=== PATIENT | female | born 1940 | race American Indian/Alaskan Native ===

== ENCOUNTER 2018-02-02 14:59 | Emergency (ER) | payer MEDICARE ==
[2018-02-02] MEDS ORDERED: ASPIRIN PO ONE (15:44)
--- NOTE | 2018-02-02 15:58 | Emergency Department Report ---
ED General Adult HPI - General Chief complaint: Chest Pain Stated complaint: CHEST PAIN Time Seen by Provider: 02/02/18 15:40 Source: patient, EMS Mode of arrival: Stretcher Limitations: No Limitations - History of Present Illness Initial comments: 77-year-old female was at dialysis today around 1:30 starting a chest pain she says it lasted off and on for about an hr was across the precordium. She denies history of ACS or CAD. They were unable to complete dialysis she did have about 2 hours of dialysis. She is here for evaluation of chest pain that is now resolved and it is somewhat reproducible across precordium she was unclear if it was heavy. She is pain-free at this time. She does not state that it was sharp. It wasn't tearing in the back. She doesn't have any calf Pain or swelling. The patient is a history of hemodialysis for a month she has a right-sided vas cath for HD access. She is sent for a AV fistula tomorrow. She doesn't remember her kidney doctors name. [facility] but doesn't remember their name either. She has no history of CAD according the patient. No history of DVT or PE. She had a blood pressure 180 systolic on arrival was some intermittent chest pain across precordium that lasts about an hour she is pain-free at this time. No tearing pain pulses equal bilaterally no shortness of breath -: Gradual, minutes(s), unknown Severity scale (0 -10): 0 Quality: aching Consistency: now resolved Associated Symptoms: denies other symptoms, chest pain. denies: confusion, cough, diaphoresis, fever/chills, headaches, loss of appetite, malaise, nausea/ vomiting, rash, seizure, shortness of breath, syncope, weakness - Related Data Allergies Allergy/AdvReac Type Severity Reaction Status Date / Time No Known Allergies Allergy Unverified 02/02/18 15:43 ED Review of Systems ROS: Stated complaint: CHEST PAIN Other details as noted in HPI Comment: All other systems reviewed and negative Constitutional: denies: diaphoresis, fever, malaise Eyes: denies: eye discharge, vision change ENT: denies: dental pain, hearing loss, epistaxis Respiratory: denies: shortness of breath, SOB with exertion, SOB at rest, stridor Cardiovascular: chest pain, other (pain-free on arrival no tearing pain). denies: palpitations, dyspnea on exertion, orthopnea, edema, syncope, paroxysmal nocturnal dyspnea Gastrointestinal: denies: abdominal pain, nausea, vomiting, diarrhea, constipation, hematemesis, melena Musculoskeletal: denies: joint swelling, arthralgia Neurological: denies: numbness, paresthesias, confusion Psychiatric: denies: auditory hallucinations, visual hallucinations, suicidal thoughts Hematological/Lymphatic: denies: easy bruising ED Past Medical Hx - Past Medical History Previous Medical History?: Yes Hx Hypertension: Yes Hx Diabetes: Yes Additional medical history: ESRD, Dialysis - Social History Smoking Status: Never Smoker Substance Use Type: None ED Physical Exam - General Limitations: No Limitations General appearance: alert, in no apparent distress, anxious - Head Head exam: Present: atraumatic, normocephalic - Eye Eye exam: Present: PERRL, EOMI - Neck Neck exam: Present: normal inspection. Absent: tenderness, meningismus - Respiratory Respiratory exam: Absent: respiratory distress, wheezes, rales, rhonchi, stridor - Cardiovascular Cardiovascular Exam: Present: regular rate, normal rhythm - GI/Abdominal GI/Abdominal exam: Present: soft. Absent: distended, tenderness, guarding, rebound, rigid, pulsatile mass - Extremities Exam Extremities exam: Present: normal inspection, normal capillary refill, other ( pulses equal bilaterally). Absent: pedal edema, joint swelling, calf tenderness - Back Exam Back exam: Present: normal inspection, full ROM. Absent: tenderness, CVA tenderness (L), muscle spasm, paraspinal tenderness - Neurological Exam Neurological exam: Present: alert, oriented X3, CN II-XII intact. Absent: motor sensory deficit - Skin Skin exam: Absent: cyanosis, diaphoretic, erythema, urticaria, vesicles, petechiae ED Course Vital Signs 02/02/18 02/02/18 02/02/18 15:28 15:34 17:09 Temperature Pulse Rate 72 84 Respiratory 14 14 19 Rate Blood Pressure 188/110 Blood Pressure 176/70 [Left] O2 Sat by Pulse 97 92 Oximetry 02/02/18 18:00 Temperature 98.1 F Pulse Rate 86 Respiratory 16 Rate Blood Pressure Blood Pressure 174/72 [Left] O2 Sat by Pulse 100 Oximetry ED Medical Decision Making - Lab Data Result diagrams: 02/02/18 15:48 02/02/18 15:48 - EKG Data -: EKG Interpreted by Me - EKG Data Interpretation: other (no old EKGs available nonspecific ST change no STEMI) - Radiology Data Radiology results: report reviewed - Medical Decision Making Patient has no old records at this facility. She has seen a economic specialist at the [facility] unclear of the doctor's name. She has a nondiagnostic EKG but elevated troponin 2 she is pain-free at this time d-dimer was mildly elevated as well. Patient was informed that we would admit her for further evaluation of chest pain with elevated troponin and elevated d-dimer she is adamant that she will not be admitted. She is not intoxicated she does have capacity and competence is alert and oriented 3 and not intoxicated she was informed of the risk of acute coronary syndrome PE arrhythmia and ansd disability and is signing out AMA to nurses witnessed that she was alert and oriented with capacity and was informed of risks and also verbalized understanding. She did consent and sign AMA with 2 witnesses including 2 nurses. Patient was unable to be encouraged to be admitted she says she needs to see her vascular surgeon in the morning. She was informed that we cannot evaluate for ACS or PE DVT without further evaluation and admission she signed AMA Critical care attestation.: If time is entered above; I have spent that time in minutes in the direct care of this critically ill patient, excluding procedure time. ED Disposition Clinical Impression: Chest pain Disposition: [id number] LEFT AGAINST MED ADVICE Is pt being admited?: No Condition: Stable Instructions: Chest Pain (ED) Additional Instructions: Return immediately if new alarming symptoms see her doctor tomorrow or 911 Referrals: SHAKIRA ZULUAGA MD [Primary Care Provider] - 3-5 Days Forms: AMA Form Time of Disposition: 19:47
[2018-02-02 16:20] LABS: Basophils % (Auto) 0.9 % (0.0-1.8); Eosinophils # (Auto) 0.2 K/mm3 (0.0-0.4); Eosinophils % (Auto) 2.8 % (0.0-4.3); Hematocrit 31.6 % (30.3-42.9); Lymphocytes # (Auto) 1.4 K/mm3 (1.2-5.4); Lymphocytes % (Auto) 26.5 % (13.4-35.0); Mean Corpuscular HGB Conc 32 % (30-34); Mean Corpuscular Hemoglobin 29 pg (28-32); Mean Corpuscular Volume 90 fl (79-97); Monocytes # (Auto) 0.6 K/mm3 (0.0-0.8); Monocytes % (Auto) 10.8 % (0.0-7.3); Platelet Count 124 K/mm3 (140-440); Red Blood Count 3.49 M/mm3 (3.65-5.03); Red Cell Distribution Width 16.7 % (13.2-15.2)
[2018-02-02 16:29] LABS: Calcium 8.4 mg/dL (8.4-10.2)
[2018-02-02 17:10] LABS: Chol/HDL Ratio 1.94 %
[2018-02-02] MEDS ORDERED: MORPHINE IV ONE (17:23)
[2018-02-02] MEDS ORDERED: ZOFRAN IV ONE (17:23)
--- NOTE | 2018-02-02 18:43 | XRay Report ---
FINAL REPORT EXAM: XR CHEST 1V AP HISTORY: chest pain TECHNIQUE: Frontal portable examination of the chest PRIORS: None FINDINGS: A right venous catheter is in place with distal tip near the cavoatrial junction region. Nonspecific streaky densities are present bilaterally with slight central predominance. This interstitial prominence may represent interstitial and/or vascular markings. There is no focal pulmonary consolidation. No evidence of pleural effusion or pneumothorax. The cardiac silhouette size is normal. No evidence of acute skeletal pathology. IMPRESSION: Nonspecific interstitial prominence may reflect slight scarring or fibrosis. Acute considerations include slight reactive airways disease, vascular congestion, interstitial edema, viral process, or interstitial pneumonitis.
[2018-02-02 20:06] VITALS: BP 182/66
== END 2018-02-02 20:18 | disposition left against medical advice (07) ==
LOC: ED 14:59
DX: R07.9 Chest pain, unspecified (principal); I12.0 Hypertensive chronic kidney disease with stage 5 chronic kidney disease or end stage renal disease; E11.22 Type 2 diabetes mellitus with diabetic chronic kidney disease; N18.6 End stage renal disease; Z99.2 Dependence on renal dialysis
CPT/HCPCS: 36415; 71045; 80048; 80061; 84484; 85025; 85379; 93005; 93010; 96374; 96375; 99284; J2270; J2405

== ENCOUNTER 2018-10-23 19:59 | Inpatient (IN) | payer MEDICARE ==
--- NOTE | 2018-10-23 20:36 | Emergency Department Report ---
HPI - General Time Seen by Provider: 10/23/18 20:21 - HPI HPI: 78-year-old female presents to the emergency department via EMS from home with complaint of some seizure-like activity. The family called EMS because she was "shaking all day." The patient says that she keeps jerking uncontrollably but also says that she has been awake and cognizant of this jerking motion. Patient complains of some left-sided neck pain but otherwise denies any headache. She has a past medical history of insulin-dependent diabetes, hypertension, coronary artery disease, CHF, end-stage renal disease on hemodialysis. Patient appears to follow with Dr. Pope's nephrology group. The patient got to the emergency department she had some low pulse ox on room air, 90%, so she was given 2 L nasal cannula supplemental oxygen. She is a little groggy but is responsive and oriented. The patient was just recently admitted and then discharged from this hospital at the end of September for some altered mental status issues. ED Past Medical Hx - Past Medical History Hx Hypertension: Yes Hx Congestive Heart Failure: Yes Hx Diabetes: Yes Hx Renal Disease: Yes (esrd on dialysis) Hx HIV: No Additional medical history: ESRD, Dialysis - Surgical History Additional Surgical History: Graft PA - Social History Smoking Status: Never Smoker - Medications Home Medications: Home Medications Medication Instructions Recorded Confirmed Last Taken Type Acetaminophen [Tylenol] 500 mg PO Q8H PRN 08/13/18 10/14/18 08/11/18 History Aspirin 81 mg PO DAILY 08/13/18 10/14/18 08/11/18 History Baclofen 10 mg PO TID 08/13/18 10/14/18 08/11/18 History Carvedilol [Coreg] 12.5 mg PO BID 08/13/18 10/14/18 08/11/18 History ISOSORBIDE MONOnitrate [Imdur ER] 60 mg PO DAILY 08/13/18 10/14/18 08/11/18 History Tizanidine HCl [Zanaflex] 4 mg PO TID 08/13/18 10/14/18 08/11/18 History amLODIPine [Norvasc] 10 mg PO DAILY 08/13/18 10/14/18 08/11/18 History Lacosamide [Vimpat] 50 mg PO Q12HR #60 tablet 08/18/18 10/14/18 Unknown Rx Acetaminophen [Acetaminophen TAB] 650 mg PO Q4H PRN tablet 09/02/18 10/14/18 Unknown Rx Aspirin [Aspirin BABY CHEW TAB] 81 mg PO DAILY tab.chew 09/02/18 10/14/18 Unknown Rx Carvedilol [Coreg] 12.5 mg PO BID tablet 09/02/18 10/14/18 Unknown Rx Famotidine [Pepcid] 10 mg PO BID tablet 09/02/18 10/14/18 Unknown Rx Lispro Insulin [Humalog] 0 unit SUB-Q ACHS units 09/02/18 10/14/18 Unknown Rx oxyCODONE /ACETAMINOPHEN [Percocet 1 tab PO Q6H PRN tablet 09/02/18 10/14/18 Unknown Rx 5/325 mg] Carvedilol [Coreg] 12.5 mg PO BID tablet 10/15/18 Unknown Rx Gabapentin [Neurontin] 100 mg PO Q12H #60 capsule 10/15/18 Unknown Rx ISOSORBIDE MONOnitrate [Imdur ER] 60 mg PO DAILY tablet 10/15/18 Unknown Rx Insulin Regular, Human [HumuLIN R] 0 units SUB-Q QHS units 10/15/18 Unknown Rx Lisinopril [Zestril TAB] 40 mg PO DAILY tablet 10/15/18 Unknown Rx cloNIDine [Catapres] 0.2 mg PO BID tablet 10/15/18 Unknown Rx ED Review of Systems ROS: Stated complaint: SEIZURE Other details as noted in HPI Comment: All other systems reviewed and negative Constitutional: denies: chills, fever Eyes: denies: eye pain, vision change ENT: denies: ear pain, throat pain Respiratory: denies: cough, shortness of breath Cardiovascular: denies: chest pain, palpitations Gastrointestinal: denies: abdominal pain, vomiting Genitourinary: denies: dysuria, discharge Musculoskeletal: other (neck pain). denies: back pain Skin: denies: rash, lesions Neurological: other (seizure like activity / jerking). denies: headache Physical Exam - Physical Exam Physical Exam: GENERAL: The patient is well-developed well-nourished. HEENT: Normocephalic. Atraumatic. Patient has moist mucous membranes. EYES: Extraocular motions are intact. Pupils are equal and reactive to light bilaterally. NECK: Supple. Trachea is midline. CHEST/LUNGS: Rhonchi heard, worse on the right. No tachypnea or accessory muscle use. There is no respiratory distress noted. HEART/CARDIOVASCULAR: Regular. There is no tachycardia. There is no obvious murmur. ABDOMEN: Abdomen is soft, nontender. Patient has normal bowel sounds. There is no abdominal distention. SKIN: Skin is warm and dry. NEURO: The patient is sleepy/groggy but is easily arousable. Once awake she is oriented and cooperative. The patient has no focal neurologic deficits. The patient has normal speech. MUSCULOSKELETAL: There is no tenderness or deformity. There is no evidence of acute injury. ED Medical Decision Making - Lab Data Result diagrams: 10/23/18 21:06 10/23/18 23:01 - EKG Data -: EKG Interpreted by Me EKG shows normal: sinus rhythm, axis (left axis deviation), intervals, QRS complexes (LVH, early repolarization), ST-T waves Rate: normal - EKG Data When compared to previous EKG there are: no significant change Interpretation: unchanged when compared t (10/14/18) - Radiology Data Radiology results: report reviewed, image reviewed interpreted by me: Chest x-ray shows some patchy infiltrate and/or consolidation to the right middle and lower lobe concerning for pneumonia versus effusion. No pneumothorax. PROCEDURE: CT HEAD/BRAIN WO CON TECHNIQUE: Computerized tomography of the head was performed without contrast material. HISTORY: seizures COMPARISON: 10/14/2019 FINDINGS: Skull and scalp: Normal. Paranasal sinuses: Normal. Ventricles and subarachnoid spaces: Normal. Cerebrum: No evidence of hemorrhage, acute infarction or mass.. Cerebellum and brainstem: No evidence of hemorrhage, acute infarction or mass. Vasculature: Normal. Comments: None. IMPRESSION: There is no evidence acute intracranial Transcribed By: [facility] Dictated By: SALO DIEGO MD Electronically Authenticated By: SALO DIEGO MD Signed Date/Time: 10/24/18 0008 EXAM: CT CHEST WO CON HISTORY: SOB, abnormal CXR TECHNIQUE: Routine axial imaging was obtained of the thorax without IV contrast with sagittal and coronal reconstructions. There are no previous CT scans available for comparison. FINDINGS: The heart is moderately enlarged. Pericardial fluid is not seen. The thoracic aorta is normal in caliber. The lungs reveal diffuse interstitial prominence and congestion. There are bilateral small effusions. There extensive airspace disease particularly in right middle lobe and right lower lobe and to lesser extent in the right upper lobe. There is mild patchy airspace disease in the left upper lobe also. The skeletal structures reveal mild disc degeneration in the dorsal spine. At the thoracic inlet the thyroid gland appears normal. In the upper abdomen the adrenal glands appear normal. There are multiple stones in the gallbladder. IMPRESSION: Extensive pneumonia primarily in the right middle and right lower lobe with additional patchy infiltrates in the right upper lobe and left upper lobe. Cardiomegaly with pulmonary vascular congestion and bilateral small effusions. Gallstones. Transcribed By: RB Dictated By: DAMION NEWMAN MD Electronically Authenticated By: DAMION NEWMAN MD Signed Date/Time: 10/24/18 0011 - Medical Decision Making The patient originally came in for the complaint of some seizure-like activity has been going on throughout today. The patient is sleepy and/or karate, she is easily arousable and oriented to person, place and time. She has no significant complaints. However on examination the patient has rhonchi heard throughout the chest and had some hypoxia on the monitor. A chest x-ray was done that shows some right middle to lower lung consolidation and/or infiltrates. The patient's labs are mostly unremarkable except for her chronic kidney disease. She does have a very elevated proBNP but once again she is end- stage renal disease on hemodialysis. CT scan of head without any bleed, shift, mass, ischemia or any other acute process. CT scan of the chest without contrast shows significant right-sided pneumonia. Blood Cultures were sent and the patient was started on antibiotics. Patient will be admitted to the [facility] for further evaluation and treatment and was accepted for admission by the hospitalist, Dr. Lima. - Differential Diagnosis Pneumonia, Epilepsy, CHF, Sepsis Critical Care Time: No Critical care attestation.: If time is entered above; I have spent that time in minutes in the direct care of this critically ill patient, excluding procedure time. ED Disposition Clinical Impression: End stage renal disease on dialysis, Seizure Pneumonia Qualifiers: Pneumonia type: due to unspecified organism Laterality: right Lung location: unspecified part of lung Qualified Code(s): J18.9 - Pneumonia, unspecified organism Disposition: -09 OP ADMIT IP TO THIS HOSP Is pt being admited?: Yes Condition: Serious Instructions: Bacterial Pneumonia (ED) Referrals: YOLETTE GUO MD [Primary Care Provider] - 3-5 Days Time of Disposition: 01:27
[2018-10-23 21:32] LABS: Basophils % (Auto) 0.4 % (0.0-1.8); Hematocrit 39.5 % (30.3-42.9); Hemoglobin 12.8 gm/dl (10.1-14.3); Lymphocytes # (Auto) 0.5 K/mm3 (1.2-5.4); Lymphocytes % (Auto) 6.7 % (13.4-35.0); Mean Corpuscular HGB Conc 32 % (30-34); Mean Corpuscular Volume 89 fl (79-97); Monocytes # (Auto) 0.7 K/mm3 (0.0-0.8); Monocytes % (Auto) 8.4 % (0.0-7.3); Red Blood Count 4.44 M/mm3 (3.65-5.03); Red Cell Distribution Width 16.7 % (13.2-15.2)
[2018-10-23 21:47] LABS: Platelet Count 89 K/mm3 (140-440)
--- NOTE | 2018-10-23 21:50 | XRay Report ---
FINAL REPORT EXAM: XR CHEST 1V AP HISTORY: SOB TECHNIQUE: Frontal portable view of the chest Comparison: Chest x-ray dated October 14, 2018 FINDINGS: There has been interval development of a large area of pulmonary consolidation suggestive of pulmonar y infiltrate in the right mid and lower lung pan. There continues to be prominence of the interstitial markings in both lungs as was demonstrated on th e previous study. There is no evidence of pneumothorax. It is unclear whether not there is a right pleural fluid collec tion. The cardiac silhouette is partially obscured by the pulmonary disease. The thoracic aorta is tortuous. IMPRESSION: 1. Interval development of large area pulmonary consolidation, probable pneumonia, right mid and lowe r lung pan.
[2018-10-23 21:53] LABS: Calcium 8.5 mg/dL (8.4-10.2)
[2018-10-23] MEDS ORDERED: LEVAQUIN 750MG/150ML 750 MG/150 ML BAG IV ONE (21:58)
[2018-10-23] MEDS ORDERED: DUONEB *Not for PRN Use IH ONE (21:58)
[2018-10-23 22:47] LABS: Albumin 3.5 g/dL (3.9-5)
[2018-10-23] MEDS ORDERED: HumuLIN R IV ONE (23:14)
[2018-10-23 23:26] LABS: Calcium 8.2 mg/dL (8.4-10.2)
--- NOTE | 2018-10-24 00:08 | Cat Scan Report ---
FINAL REPORT PROCEDURE: CT HEAD/BRAIN WO CON TECHNIQUE: Computerized tomography of the head was performed without contrast material. HISTORY: seizures COMPARISON: 10/14/2019 FINDINGS: Skull and scalp: Normal. Paranasal sinuses: Normal. Ventricles and subarachnoid spaces: Normal. Cerebrum: No evidence of hemorrhage, acute infarction or mass.. Cerebellum and brainstem: No evidence of hemorrhage, acute infarction or mass. Vasculature: Normal. Comments: None. IMPRESSION: There is no evidence acute intracranial
--- NOTE | 2018-10-24 00:11 | Cat Scan Report ---
FINAL REPORT EXAM: CT CHEST WO CON HISTORY: SOB, abnormal CXR TECHNIQUE: Routine axial imaging was obtained of the thorax without IV contrast with sagittal and co rubina reconstructions. There are no previous CT scans available for comparison. FINDINGS: The heart is moderately enlarged. Pericardial fluid is not seen. The thoracic aorta is normal in romie allan. The lungs reveal diffuse interstitial prominence and congestion. There are bilateral small effus ions. There extensive airspace disease particularly in right middle lobe and right lower lobe and to lesser extent in the right upper lobe. There is mild patchy airspace disease in the left upper lobe a lso. The skeletal structures reveal mild disc degeneration in the dorsal spine. At the thoracic inlet the thyroid gland appears normal. In the upper abdomen the adrenal glands appear normal. There are m ultiple stones in the gallbladder. IMPRESSION: Extensive pneumonia primarily in the right middle and right lower lobe with additional patchy infiltr ates in the right upper lobe and left upper lobe. Cardiomegaly with pulmonary vascular congestion and bilateral small effusions. Gallstones.
[2018-10-24] MEDS ORDERED: KEPPRA 1,000 MG/NS 0.75% 100ML 1,000 MG/100 ML BAG IV ONE (00:40)
[2018-10-24] MEDS ORDERED: TYLENOL PO PRN ×2 (01:07→04:05)
[2018-10-24] MEDS ORDERED: ATIVAN IV PRN (01:09)
[2018-10-24] MEDS ORDERED: ZOFRAN IV PRN (01:09)
[2018-10-24] MEDS ORDERED: D50W (25GM) Syringe IV PRN (01:24)
--- NOTE | 2018-10-24 06:04 | History and Physical Report ---
CHIEF COMPLAINT: Seizure attack. HISTORY OF PRESENT ILLNESS: The patient is a 78-year-old female who was noted to be having seizure-like activity at home and the family called 911 because the patient was noted to be shaking all over and the patient states she kept jerking uncontrollably but states that she was aware of the jerking movement she was having. She also complained of pain on the left side of the neck, but denied any history of chest pain. Denies history of shortness of breath, fever, nausea or vomiting. The patient was recently discharged from the hospital towards the end of September after being treated for altered mental status. There was no prior history of seizure disorder in the patient. The patient also denies history of fever. PAST MEDICAL HISTORY: Pertinent for hypertension, congestive heart failure, diabetes mellitus, end-stage renal disease, on dialysis. PAST SURGICAL HISTORY: Pertinent for left upper extremity graft. FAMILY HISTORY: Family history is noncontributory. SOCIAL HISTORY: The patient lives with family, does not smoke, does not drink alcohol. MEDICATIONS: The patient is on Tylenol 500 mg by mouth every 8 hours, baclofen 10 mg by mouth 3 times daily, Coreg 12.5 mg by mouth twice daily, tizanidine or Zanaflex 4 mg by mouth 3 times daily, Norvasc 10 mg daily, lacosamide or Vimpat 50 mg by mouth every 12 hours, Tylenol 650 mg by mouth every 4 hours, aspirin 81 mg by mouth daily, famotidine 10 mg by mouth twice daily, lispro insulin according to sliding scale protocol, Percocet 5/325 mg one by mouth every 6 hour, Neurontin 100 mg by mouth every 12 hours, Imdur or isosorbide mononitrate 60 mg by mouth daily, lisinopril 40 mg by mouth daily, Catapres 0.2 mg by mouth twice daily. ALLERGIES: There are no known drug allergies. REVIEW OF SYSTEMS: CONSTITUTIONAL: There is no fever, no chills, no diaphoresis. HEENT: There is no headache, or sore throat. CARDIOVASCULAR SYSTEM: There is no chest pain or orthopnea. RESPIRATORY SYSTEM: There is no shortness of breath or cough. GASTROINTESTINAL SYSTEM: There is no nausea, no vomiting, no abdominal pain, diarrhea or constipation. NEUROLOGICAL SYSTEM: Seizure like activity noted with change in mental status noted. MUSCULOSKELETAL SYSTEM: There is no joint pain or swelling. DERMATOLOGICAL SYSTEM: There is no skin rash or itching. GENITOURINARY SYSTEM: There is no dysuria, hematuria, or flank pain. Rest of system review is normal. PHYSICAL EXAMINATION: GENERAL: At the time of exam, the patient was found to be lethargic, but easily arousable, unable to answer questions and not in acute distress. VITAL SIGNS: Shows normal temperature with pulse of 78, respiration 22, blood pressure 142/50, O2 sat of 97% on room air. HEENT: Showed pupils to be equal, round, reactive to light and accommodating. Extraocular muscles are intact. NECK: Neck is supple with no JVD or carotid bruit. CARDIOVASCULAR SYSTEM: Showed normal first and second heart sounds with no gallops or murmur. RESPIRATORY SYSTEM: Show good air entry on both sides of the lung with crackles in the right lung field. GASTROINTESTINAL SYSTEM: Show abdomen to be full, soft, nontender with no organomegaly or rigidity. NEUROLOGICAL: Neuro exam shows no focal deficits. MUSCULOSKELETAL SYSTEM: Show no joint swelling or tenderness. DERMATOLOGICAL SYSTEM: Show no skin rash. GENITOURINARY SYSTEM: Showing no costovertebral angle tenderness. PERTINENT LABORATORY AND IMAGING STUDIES: The patient had CT of the chest without contrast done that shows extensive pneumonia primarily in the right middle and right lower lobe with additional patchy infiltrate in the right upper lobe and left upper lobe. There is also finding of cardiomegaly with pulmonary vascular congestion and bilateral small effusion. There is finding of some gallstone and the patient had a CT of the head without contrast done that shows no evidence of acute intracranial lesion. The patient has chest x-ray done which shows interval development of large area of pulmonary consolidation, probably pneumonia in the right lower lobe. Lab results; the patient has CBC done with normal white count, normal hemoglobin and normal hematocrit with low platelet count of 89,000 and CBC differential that shows high segmented neutrophilic count of 84.5% and the patient's chemistry showed low sodium level of 133, low chloride of 94.6. Elevated BUN of 29 and elevated creatinine of 3.8 and an elevated blood glucose level of 361. Brain natriuretic [place] [address]. Toxicology screen shows unremarkable alcohol level. DIAGNOSES: 1. Right lung pneumonia. 2. Seizure disorder. 3. End-stage renal disease, on dialysis. PLAN OF ACTION: 1. The patient will be admitted to telemetry. 2. The patient will be on IV ceftriaxone 1 gram daily and IV Zithromax 500 mg daily. 3. The patient will have Nephrology consult with Dr. Pope for management of end-stage renal disease, on dialysis. 4. The patient will be on Keppra 750 mg by mouth twice daily for management of seizure disorder. 5. The patient will get Neurology consult when available. 6. The patient will be on heparin 5000 units subQ q. 12 hours for DVT prophylaxis and will be on Tylenol 650 mg by mouth every 4 hours for fever and headache. 7. The patient will be on IV lorazepam or Ativan 1 mg every 2 hours as needed for seizure attack. 8. The patient will be on IV Zofran 4 mg every 8 hours for nausea and vomiting. 9. The patient's diet will be consistent carbohydrate, low sodium diet and the patient will be on Accu-Chek before meals and at bedtime, followed by low-dose sliding scale using regular insulin coverage. 10. The patient's home medication will be started when they are reconciled. JOB# [id number] [facility]IZABETH MTDD
[2018-10-24] MEDS ORDERED: NON-FORMULARY (Tizanidine Hcl [Zanaflex] 4 MG) PO SCH (08:00)
[2018-10-24] MEDS: HumuLIN R SUB-Q SCH ×4 (09:00→22:21)
[2018-10-24] MEDS: ZANAFLEX PO SCH ×3 (09:55→21:38)
[2018-10-24] MEDS ORDERED: ZITHROMAX 500 MG in NACL 0.9% 250ML 250 ML IV SCH (10:00)
[2018-10-24] MEDS ORDERED: ROCEPHIN/NS 1 GM/50 ML 1 GM/50 ML BAG IV SCH (10:00)
[2018-10-24] MEDS ORDERED: NON-FORMULARY (Aspirin 81 MG) PO SCH (10:00)
[2018-10-24] MEDS ORDERED: VANCOMYCIN PHARMACY TO DOSE IV SCH (12:00)
[2018-10-24] MEDS ORDERED: VANCOMYCIN/NS 1 GM/250 ML 1 GM/250 ML BAG IV ONE (12:00)
--- NOTE | 2018-10-24 12:29 | Consultation ---
History of Present Illness - Reason for Consult Consult date: 10/24/18 end stage renal disease Requesting physician: LEO SCHOFIELD - History of Present Illness 78-year-old female presents to the emergency department via EMS from home with complaint of some seizure-like activity. The family called EMS because she was "shaking all day." The patient says that she keeps jerking uncontrollably but also says that she has been awake and cognizant of this j erking motion. Patient complains of some left-sided neck pain but otherwise denies any headache. She has a past medical history of insulin-dependent diabetes, hypertension, coronary artery disease, CHF, end-stage renal disease on hemodialysis. The patient got to the emergency department she had some low pulse ox on room air, 90%, so she was given 2 L nasal cannula supplemental oxygen. She is a little groggy but is responsive and oriented. The patient was just recently admitted and then discharged from this hospital at the end of September for some altered mental status issues. 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 However she was seen by our group during all her previous admissions here. Patient found to have a large consolidation in the lungs. She is being admitted for further management Past History Past Medical History: diabetes, dialysis, hypertension Past Surgical History: Other (history of creation of AV access) Social history: other (history of smoking or drinking) Family history: no significant family history Medications and Allergies Allergies Allergy/AdvReac Type Severity Reaction Status Date / Time No Known Allergies Allergy Unverified 02/02/18 15:43 Home Medications Medication Instructions Recorded Confirmed Last Taken Type Aspirin 81 mg PO DAILY 08/13/18 10/24/18 08/11/18 History Baclofen 10 mg PO TID 08/13/18 10/24/18 08/11/18 History Tizanidine HCl [Zanaflex] 4 mg PO TID 08/13/18 10/24/18 08/11/18 History amLODIPine [Norvasc] 10 mg PO DAILY 08/13/18 10/24/18 08/11/18 History Lacosamide [Vimpat] 50 mg PO Q12HR #60 tablet 08/18/18 10/24/18 Unknown Rx Acetaminophen [Acetaminophen TAB] 650 mg PO Q4H PRN tablet 09/02/18 10/24/18 Unknown Rx Aspirin [Aspirin BABY CHEW TAB] 81 mg PO DAILY tab.chew 09/02/18 10/24/18 Unknown Rx Famotidine [Pepcid] 10 mg PO BID tablet 09/02/18 10/24/18 Unknown Rx Lispro Insulin [Humalog] 0 unit SUB-Q ACHS units 09/02/18 10/24/18 Unknown Rx oxyCODONE /ACETAMINOPHEN [Percocet 1 tab PO Q6H PRN tablet 09/02/18 10/24/18 Unknown Rx 5/325 mg] Carvedilol [Coreg] 12.5 mg PO BID tablet 10/15/18 10/24/18 Unknown Rx Gabapentin [Neurontin] 100 mg PO Q12H #60 capsule 10/15/18 10/24/18 Unknown Rx ISOSORBIDE MONOnitrate [Imdur ER] 60 mg PO DAILY tablet 10/15/18 10/24/18 Unknown Rx Insulin Regular, Human [HumuLIN R] 0 units SUB-Q QHS units 10/15/18 10/24/18 Unknown Rx Lisinopril [Zestril TAB] 40 mg PO DAILY tablet 10/15/18 10/24/18 Unknown Rx cloNIDine [Catapres] 0.2 mg PO BID tablet 10/15/18 10/24/18 Unknown Rx Active Meds: Active Medications Acetaminophen (Tylenol) 650 mg PO Q4H PRN PRN Reason: Fever >101 Amlodipine Besylate (Norvasc) 10 mg PO DAILY [facility] Aspirin (Baby Aspirin) 81 mg PO DAILY [facility] Carvedilol (Coreg) 12.5 mg PO BID [facility] Clonidine HCl (Catapres) 0.2 mg PO BID [facility] Dextrose (D50w (25gm) Syringe) 50 ml IV PRN PRN PRN Reason: Hypoglycemia Famotidine (Pepcid) 10 mg PO BID [facility] Heparin Sodium (Porcine) (Heparin) 5,000 unit SUB-Q Q12HR [facility] Cefepime HCl (Maxipime/Ns 1 Gm/100 Ml) 1 gm in 100 mls @ 200 mls/hr IV Q24H BUTCH Vancomycin HCl (Vancomycin/Ns 1 Gm/250 Ml) 1 gm in 250 mls @ 166.667 mls/hr IV ONCE ONE Stop: 10/24/18 13:29 Insulin Human Regular (Humulin R) 0 units SUB-Q AC [facility]; Protocol Insulin Human Regular (Humulin R) 0 units SUB-Q QHS [facility]; Protocol Isosorbide Mononitrate (Imdur) 60 mg PO DAILY [facility] Lacosamide (Vimpat) 50 mg PO Q12HR BUTCH Levetiracetam (Keppra) 750 mg PO BID BUTCH Lisinopril (Zestril) 40 mg PO DAILY BUTCH Lorazepam (Ativan) 1 mg IV Q2H PRN PRN Reason: Seizures Ondansetron HCl (Zofran) 4 mg IV Q8H PRN PRN Reason: Nausea And Vomiting Oxycodone/Acetaminophen (Percocet 5/325) 1 tab PO Q6H PRN PRN Reason: Pain, Moderate (4-6) Tizanidine HCl (Zanaflex) 4 mg PO TID BUTCH Review of Systems All systems: negative (negative except as noted above) Exam - Vital Signs Vital signs: Vital Signs Pulse Resp Pulse Ox 86 16 80 L 10/23/18 20:14 10/23/18 20:14 10/23/18 20:14 - General Appearance General appearance: well-developed, well-nourished, appears stated age EENT: ATNC Neck: Present: neck supple Respiratory: Ronchi (bilateral scattered rhonchi) Heart: regular, normal heart rate, S1S2, no murmurs Gastrointestinal: Present: normal, normoactive bowel sounds Integumentary: other (1+ edema. AV fistula in her left upper arm. Good bruit and thrill) Results - Lab Results 10/23/18 21:06 10/23/18 23:01 Most recent lab results Calcium 8.2 mg/dL (8.4-10.2) L 10/23/18 23:01 Assessment and Plan Impression * End-stage renal disease on maintenance hemodialysis * Pneumonia * Hypertension * Diabetes * History of seizure disorder Recommendations * No urgent indication for dialysis today * Schedule patient for hemodialysis tomorrow and keep her on MWF schedule as outpatient * Antibiotic as per primary team * Avoid nephrotoxins * Adjust diet and meds for ESRD state * No IV, BP of any puncture and her access arm * Hold epogen for now as her hemoglobin is greater than 12 * Binders with meals * Thank you very much for the consultation. Shall follow along with you
[2018-10-24] MEDS ORDERED: NACL 0.9% 100 ML IV PRN (12:31)
[2018-10-24] MEDS: PEPCID PO SCH ×2 (12:42→21:37)
[2018-10-24] MEDS: ZESTRIL PO SCH (12:43)
[2018-10-24] MEDS: COREG PO SCH ×2 (12:43→21:35)
[2018-10-24] MEDS: CATAPRES PO SCH ×2 (12:44→21:37)
[2018-10-24] MEDS: NORVASC PO SCH (12:44)
[2018-10-24] MEDS: VIMPAT PO SCH ×2 (12:44→21:35)
[2018-10-24] MEDS: BABY ASPIRIN PO SCH (12:45)
[2018-10-24] MEDS: KEPPRA PO SCH ×2 (12:52→21:31)
[2018-10-24] MEDS: IMDUR PO SCH (12:52)
[2018-10-24] MEDS: HEPARIN SUB-Q SCH ×2 (12:53→21:38)
[2018-10-24] MEDS ORDERED: MAXIPIME/NS 2 GM/100 ML 2 GM/100 ML BAG IV SCH (14:00)
[2018-10-24] MEDS: MAXIPIME/NS 1 GM/100 ML 1 GM/100 ML BAG IV SCH (18:15)
[2018-10-25] MEDS: ZANAFLEX PO SCH ×3 (08:24→21:10)
[2018-10-25] MEDS: HumuLIN R SUB-Q SCH ×4 (08:25→22:17)
--- NOTE | 2018-10-25 08:25 | Progress Note ---
Assessment and Plan Impression * End-stage renal disease on maintenance hemodialysis * Pneumonia * Hypertension * Diabetes * History of seizure disorder Recommendations * Patient is scheduled for hemodialysis today * Continue hemodialysis on [facility] schedule as outpatient * Antibiotic as per primary team * Avoid nephrotoxins * Adjust diet and meds for ESRD state * No IV, BP of any puncture and her access arm * Hold epogen for now as her hemoglobin is greater than 12 * Binders with meals Subjective Date of service: 10/25/18 Interval history: Patient continues to have cough productive of yellowish sputum as well as some shortness of breath. Denies any nausea or vomiting. Objective - Vital Signs Vital signs: Vital Signs - 12hr 10/24/18 10/24/18 10/24/18 21:35 21:37 22:00 Temperature Pulse Rate 104 H 104 H Pulse Rate [ 86 Right From Monitor] Respiratory Rate Blood Pressure 145/53 145/53 O2 Sat by Pulse 96 Oximetry 10/24/18 10/25/18 10/25/18 23:42 02:00 03:00 Temperature 101.8 F H 100.0 F H Pulse Rate 93 H 80 Pulse Rate [ Right From Monitor] Respiratory 18 Rate Blood Pressure 156/60 O2 Sat by Pulse 92 100 Oximetry 10/25/18 04:16 Temperature 98.0 F Pulse Rate 80 Pulse Rate [ Right From Monitor] Respiratory 18 Rate Blood Pressure 139/50 O2 Sat by Pulse 90 Oximetry - General Appearance General appearance: well-developed, well-nourished, appears stated age EENT: PERRL, mucous membranes moist Neck: no JVD, no thyromegaly, no carotid bruit, supple Respiratory: Present: Wheezes (bilateral scattered wheezing) Cardiology: regular, normal heart rate, S1S2, no murmurs Gastrointestinal: normal, normoactive bowel sounds Integumentary: other (no edema. AV fistula in her left upper arm. Good bruit and thrill.) - Lab 10/23/18 21:06 10/23/18 23:01 Most recent lab results Calcium 8.2 mg/dL (8.4-10.2) L 10/23/18 23:01 Medications & Allergies - Medications Allergies/Adverse Reactions: Allergies No Known Allergies Allergy (Unverified 02/02/18 15:43) Home Medications: Home Medications Medication Instructions Recorded Confirmed Last Taken Type Aspirin 81 mg PO DAILY 11/10/24/18 08/11/18 History Baclofen 10 mg PO TID 08/13/18 10/24/18 08/11/18 History Tizanidine HCl [Zanaflex] 4 mg PO TID 08/13/18 10/24/18 08/11/18 History amLODIPine [Norvasc] 10 mg PO DAILY 08/13/18 10/24/18 08/11/18 History Lacosamide [Vimpat] 50 mg PO Q12HR #60 tablet 08/18/18 10/24/18 Unknown Rx Acetaminophen [Acetaminophen TAB] 650 mg PO Q4H PRN tablet 09/02/18 10/24/18 Unknown Rx Aspirin [Aspirin BABY CHEW TAB] 81 mg PO DAILY tab.chew 09/02/18 10/24/18 Unknown Rx Famotidine [Pepcid] 10 mg PO BID tablet 09/02/18 10/24/18 Unknown Rx Lispro Insulin [Humalog] 0 unit SUB-Q ACHS units 09/02/18 10/24/18 Unknown Rx oxyCODONE /ACETAMINOPHEN [Percocet 1 tab PO Q6H PRN tablet 09/02/18 10/24/18 Unknown Rx 5/325 mg] Carvedilol [Coreg] 12.5 mg PO BID tablet 10/15/18 10/24/18 Unknown Rx Gabapentin [Neurontin] 100 mg PO Q12H #60 capsule 10/15/18 10/24/18 Unknown Rx ISOSORBIDE MONOnitrate [Imdur ER] 60 mg PO DAILY tablet 10/15/18 10/24/18 Unknown Rx Insulin Regular, Human [HumuLIN R] 0 units SUB-Q QHS units 10/15/18 10/24/18 Unknown Rx Lisinopril [Zestril TAB] 40 mg PO DAILY tablet 10/15/18 10/24/18 Unknown Rx cloNIDine [Catapres] 0.2 mg PO BID tablet 10/15/18 10/24/18 Unknown Rx Active Medications: Generic Name Dose Route Start Last Admin Trade Name Freq PRN Reason Stop Dose Admin Acetaminophen 650 mg 10/24/18 01:07 10/25/18 00:02 Tylenol PO 650 mg Q4H PRN Administration Fever >101 Amlodipine Besylate 10 mg 10/24/18 10:00 10/24/18 12:44 Norvasc PO 10 mg DAILY BUT[facility] Administration Aspirin 81 mg 10/24/18 10:00 10/24/18 12:45 Baby Aspirin PO 81 mg DAILY BUT[facility] Administration Carvedilol 12.5 mg 10/24/18 10:00 10/24/18 21:35 Coreg PO 12.5 mg BID BUTCH Administration Clonidine HCl 0.2 mg 10/24/18 10:00 10/24/18 21:37 Catapres PO 0.2 mg BID BUTCH Administration Dextrose 50 ml 10/24/18 01:24 D50w (25gm) Syringe IV PRN PRN Hypoglycemia Famotidine 10 mg 10/24/18 10:00 10/24/18 21:37 Pepcid PO 10 mg BID BUTCH Administration Heparin Sodium (Porcine) 5,000 unit 10/24/18 10:00 10/24/18 21:38 Heparin SUB-Q 5,000 unit Q12HR BUT[facility] Administration Cefepime HCl 1 gm in 100 mls @ 200 mls/hr 10/24/18 18:00 10/24/18 18:15 Maxipime/Ns 1 Gm/100 Ml IV 200 mls/hr Q24H BUT[facility] Administration Sodium Chloride 100 mls @ 999 mls/hr 10/24/18 12:31 Nacl 0.9% IV ALANA PRN Hypotension during HD Vancomycin HCl 1 gm in 250 mls @ 167.007 mls/hr 10/25/18 20:00 Vancomycin/Ns 1 Gm/250 Ml IV [facility] Insulin Human Regular 0 units 10/24/18 07:30 10/24/18 18:15 Humulin R SUB-Q 1 units AC [facility] Administration Protocol Insulin Human Regular 0 units 10/24/18 22:00 10/24/18 22:21 Humulin R SUB-Q 1 units QHS BUTCH Administration Protocol Isosorbide Mononitrate 60 mg 10/24/18 10:00 10/24/18 12:52 Imdur PO 60 mg DAILY [facility] Administration Lacosamide 50 mg 10/24/18 10:00 10/24/18 21:35 Vimpat PO 50 mg Q12HR [facility] Administration Levetiracetam 750 mg 10/24/18 10:00 10/24/18 21:31 Keppra PO 750 mg BID [facility] Administration Lisinopril 40 mg 10/24/18 10:00 10/24/18 12:43 Zestril PO 40 mg DAILY [facility] Administration Lorazepam 1 mg 10/24/18 01:09 Ativan IV Q2H PRN Seizures Ondansetron HCl 4 mg 10/24/18 01:09 Zofran IV Q8H PRN Nausea And Vomiting Oxycodone/Acetaminophen 1 tab 10/24/18 04:05 Percocet 5/325 PO Q6H PRN Pain, Moderate (4-6) Tizanidine HCl 4 mg 10/24/18 08:00 10/25/18 08:24 Zanaflex PO 4 mg TID BUTCH Administration
[2018-10-25] MEDS: IMDUR PO SCH (09:08)
[2018-10-25] MEDS: BABY ASPIRIN PO SCH (09:09)
[2018-10-25] MEDS: VIMPAT PO SCH ×2 (09:09→22:09)
[2018-10-25] MEDS: CATAPRES PO SCH ×3 (09:09→22:09)
[2018-10-25] MEDS: KEPPRA PO SCH ×2 (09:10→22:09)
[2018-10-25] MEDS: NORVASC PO SCH (09:10)
[2018-10-25] MEDS: COREG PO SCH ×2 (09:10→22:16)
[2018-10-25] MEDS: PEPCID PO SCH ×2 (09:10→22:09)
[2018-10-25] MEDS: ZESTRIL PO SCH (09:26)
--- NOTE | 2018-10-25 10:25 | Progress Note ---
Assessment and Plan Assessment and plan: 74-year-old woman with history of end-stage renal disease. She presents with seizure-like activity at home. She was shaking and jerking. Brought to the hospital found to have fever and extensive right lung pneumonia -The patient does suffer from dementia, lives at home with her daughter, Plan/Hospital course Continue broad-spectrum antibiotics, follow-up blood cultures, Continue dialysis per nephrology, continue home medications -seizure likely provoked by fever/sepsis Diagnosis Sepsis Extensive R lung PNA, nosocomial acquired ESRD HTN status epilepticus History Interval history: had fever overnight c/o productive cough she has been coughing after eating no vomiting no more seizures Hospitalist Physical - Physical exam Narrative exam: General.: Appears ill HEENT: Moist mucous membranes, extraocular muscles intact, no lymphadenopathy Neck: supple Cardiac: S1-S2 heard Lungs: R lung crackles Abdomen: soft , nontender, nondistended, bowel sounds positive Extremities: no edema clubbing or cyanosis Skin: no rash or lesions Neurologic: oriented to self , knows she is in a hospital, she does not know which hospital, does not know the year, doesn't know why she is here. -Psych, demented, calm and cooperative - Constitutional Vitals: Temp Pulse Resp BP Pulse Ox 97.9 F 98 H 18 160/59 92 10/25/18 08:22 10/25/18 09:26 10/25/18 08:22 10/25/18 09:28 10/25/18 08:22 Results - Labs CBC & Chem 7: 10/23/18 21:06 10/23/18 23:01 Labs: Laboratory Last Values WBC 8.2 K/mm3 (4.5-11.0) 10/23/18 21:06 RBC 4.44 M/mm3 (3.65-5.03) 10/23/18 21:06 Hgb 12.8 gm/dl (10.1-14.3) 10/23/18 21:06 Hct 39.5 % (30.3-42.9) 10/23/18 21:06 MCV 89 fl (79-97) 10/23/18 21:06 MCH 29 pg (28-32) 10/23/18 21:06 MCHC 32 % (30-34) 10/23/18 21:06 RDW 16.7 % (13.2-15.2) H 10/23/18 21:06 Plt Count 89 K/mm3 (140-440) L 10/23/18 21:06 Lymph % (Auto) 6.7 % (13.4-35.0) L 10/23/18 21:06 [place] % (Auto) 8.4 % (0.0-7.3) H 10/23/18 21:06 Eos % (Auto) 0.0 % (0.0-4.3) 10/23/18 21:06 Baso % (Auto) 0.4 % (0.0-1.8) 10/23/18 21:06 Lymph # 0.5 K/mm3 (1.2-5.4) L 10/23/18 21:06 [place] # 0.7 K/mm3 (0.0-0.8) 10/23/18 21:06 Eos # 0.0 K/mm3 (0.0-0.4) 10/23/18 21:06 Baso # 0.0 K/mm3 (0.0-0.1) 10/23/18 21:06 Seg Neutrophils % 84.5 % (40.0-70.0) H 10/23/18 21:06 Seg Neutrophils # 7.0 K/mm3 (1.8-7.7) 10/23/18 21:06 Sodium 133 mmol/L (137-145) L 10/23/18 23:01 Potassium 3.9 mmol/L (3.6-5.0) 10/23/18 23:01 Chloride 94.6 mmol/L (98-107) L 10/23/18 23:01 Carbon Dioxide 27 mmol/L (22-30) 10/23/18 23:01 Anion Gap 15 mmol/L 10/23/18 23:01 BUN 29 mg/dL (7-17) H 10/23/18 23:01 Creatinine 3.8 mg/dL (0.7-1.2) H 10/23/18 23:01 Estimated GFR 14 ml/min 10/23/18 23:01 BUN/Creatinine Ratio 8 % 10/23/18 23:01 Glucose 361 mg/dL (65-100) H 10/23/18 23:01 POC Glucose 109 (70-105) H 10/25/18 06:26 Calcium 8.2 mg/dL (8.4-10.2) L 10/23/18 23:01 Total Bilirubin 0.80 mg/dL (0.1-1.2) 10/23/18 21:06 AST 24 units/L (5-40) 10/23/18 21:06 ALT 19 units/L (7-56) 10/23/18 21:06 Alkaline Phosphatase 76 units/L (35-129) 10/23/18 21:06 Total Creatine Kinase 91 units/L (30-135) 10/23/18 21:06 NT-Pro-B Natriuret Pep 51612 pg/mL (0-900) H 10/23/18 21:06 Total Protein 6.5 g/dL (6.3-8.2) 10/23/18 21:06 Albumin 3.5 g/dL (3.9-5) L 10/23/18 21:06 Albumin/Globulin Ratio 1.2 % 10/23/18 21:06 TSH 0.998 mlU/mL (0.270-4.200) 10/23/18 21:06 Plasma/Serum Alcohol < 0.01 % (0-0.07) 10/23/18 21:06
[2018-10-25] MEDS ORDERED: NACL 0.9 (PRIMING MACHINE ONLY DIALYSIS) MC ONE (14:36)
[2018-10-25] MEDS: HEPARIN SUB-Q SCH ×2 (16:41→22:16)
[2018-10-25 17:27] LABS: Hepatitis B Surface Antigen Non-Reactive (Negative); Hepatitis C Virus Antibody Reactive (NonReactive)
[2018-10-25] MEDS: MAXIPIME/NS 1 GM/100 ML 1 GM/100 ML BAG IV SCH (18:08)
[2018-10-25] MEDS: VANCOMYCIN/NS 1 GM/250 ML 1 GM/250 ML BAG IV SCH (22:08)
[2018-10-26] MEDS: NORVASC PO SCH ×2 (08:39→10:46)
[2018-10-26] MEDS: VIMPAT PO SCH ×3 (08:39→21:15)
[2018-10-26] MEDS: PEPCID PO SCH ×3 (08:39→21:16)
[2018-10-26] MEDS: HEPARIN SUB-Q SCH ×3 (08:40→21:16)
[2018-10-26] MEDS: KEPPRA PO SCH ×3 (08:40→21:33)
[2018-10-26] MEDS: BABY ASPIRIN PO SCH ×2 (08:40→10:43)
[2018-10-26] MEDS: ZESTRIL PO SCH ×2 (08:41→10:47)
[2018-10-26] MEDS: IMDUR PO SCH ×2 (08:41→10:44)
[2018-10-26] MEDS: CATAPRES PO SCH ×3 (08:43→21:15)
[2018-10-26] MEDS: ZANAFLEX PO SCH ×3 (08:43→21:16)
[2018-10-26] MEDS: HumuLIN R SUB-Q SCH ×4 (08:46→21:17)
--- NOTE | 2018-10-26 08:59 | Progress Note ---
Assessment and Plan Impression * End-stage renal disease on maintenance hemodialysis * Pneumonia * Hypertension * Diabetes * History of seizure disorder * Hepatitis C Recommendations * Patient had uneventful hemodialysis yesterday * Continue hemodialysis on F schedule as outpatient * Antibiotic as per primary team * Avoid nephrotoxins * Adjust diet and meds for ESRD state * No IV, BP or venipuncture and her access arm * Neupogen per protocol * Binders with meals Subjective Date of service: 10/26/18 Interval history: Patient is comfortable. She still complains of some shortness of breath. Also complains of dry mouth. Objective - Vital Signs Vital signs: Vital Signs - 12hr 10/25/18 10/25/18 10/25/18 22:00 22:09 22:16 Temperature Pulse Rate 90 90 Pulse Rate [ 90 Left Radial] Pulse Rate [ 96 H Right From Monitor] Pulse Rate [ 90 Right Radial] Respiratory Rate Blood Pressure 167/59 167/59 O2 Sat by Pulse 95 Oximetry 10/26/18 10/26/18 10/26/18 00:01 02:00 03:00 Temperature 100.2 F H 99.3 F Pulse Rate 81 81 Pulse Rate [ Left Radial] Pulse Rate [ Right From Monitor] Pulse Rate [ Right Radial] Respiratory 28 H Rate Blood Pressure 148/55 O2 Sat by Pulse 92 Oximetry 10/26/18 10/26/18 10/26/18 04:10 05:47 08:36 Temperature 99.5 F 98.0 F Pulse Rate 80 84 Pulse Rate [ Left Radial] Pulse Rate [ Right From Monitor] Pulse Rate [ Right Radial] Respiratory 28 H 20 Rate Blood Pressure 153/56 171/64 O2 Sat by Pulse 90 93 87 Oximetry 10/26/18 10/26/18 08:39 08:41 Temperature Pulse Rate 80 Pulse Rate [ Left Radial] Pulse Rate [ Right From Monitor] Pulse Rate [ Right Radial] Respiratory Rate Blood Pressure 152/69 152/69 O2 Sat by Pulse Oximetry - General Appearance General appearance: well-developed, well-nourished, appears stated age EENT: PERRL, mucous membranes moist Neck: no JVD, no thyromegaly, no carotid bruit, supple Respiratory: Present: Wheezes (bilaterally) Cardiology: regular, normal heart rate, S1S2, no murmurs Gastrointestinal: normal, normoactive bowel sounds Integumentary: other (no edema. AV fistula in her left upper arm. Good bruit and thrill.) - Lab 10/23/18 21:06 10/23/18 23:01 Most recent lab results Calcium 8.2 mg/dL (8.4-10.2) L 10/23/18 23:01 Medications & Allergies - Medications Allergies/Adverse Reactions: Allergies No Known Allergies Allergy (Unverified 02/02/18 15:43) Home Medications: Home Medications Medication Instructions Recorded Confirmed Last Taken Type Aspirin 81 mg PO DAILY 08/13/18 10/24/18 08/11/18 History Baclofen 10 mg PO TID 08/13/18 10/24/18 08/11/18 History Tizanidine HCl [Zanaflex] 4 mg PO TID 08/13/18 10/24/18 08/11/18 History amLODIPine [Norvasc] 10 mg PO DAILY 08/13/18 10/24/18 08/11/18 History Lacosamide [Vimpat] 50 mg PO Q12HR #60 tablet 08/18/18 10/24/18 Unknown Rx Acetaminophen [Acetaminophen TAB] 650 mg PO Q4H PRN tablet 09/02/18 10/24/18 Unknown Rx Aspirin [Aspirin BABY CHEW TAB] 81 mg PO DAILY tab.chew 09/02/18 10/24/18 Unknown Rx Famotidine [Pepcid] 10 mg PO BID tablet 09/02/18 10/24/18 Unknown Rx Lispro Insulin [Humalog] 0 unit SUB-Q ACHS units 09/02/18 10/24/18 Unknown Rx oxyCODONE /ACETAMINOPHEN [Percocet 1 tab PO Q6H PRN tablet 09/02/18 10/24/18 Unknown Rx 5/325 mg] Carvedilol [Coreg] 12.5 mg PO BID tablet 10/15/18 10/24/18 Unknown Rx Gabapentin [Neurontin] 100 mg PO Q12H #60 capsule 10/15/18 10/24/18 Unknown Rx ISOSORBIDE MONOnitrate [Imdur ER] 60 mg PO DAILY tablet 10/15/18 10/24/18 Unknown Rx Insulin Regular, Human [HumuLIN R] 0 units SUB-Q QHS units 10/15/18 10/24/18 Unknown Rx Lisinopril [Zestril TAB] 40 mg PO DAILY tablet 10/15/18 10/24/18 Unknown Rx cloNIDine [Catapres] 0.2 mg PO BID tablet 10/15/18 10/24/18 Unknown Rx Active Medications: Generic Name Dose Route Start Last Admin Trade Name Freq PRN Reason Stop Dose Admin Acetaminophen 650 mg 10/24/18 01:07 10/25/18 00:02 Tylenol PO 650 mg Q4H PRN Administration Fever >101 Amlodipine Besylate 10 mg 10/24/18 10:00 10/26/18 08:39 Norvasc PO 10 mg DAILY BUTCH Administration Aspirin 81 mg 10/24/18 10:00 10/26/18 08:40 Baby Aspirin PO 81 mg DAILY BUTCH Administration Carvedilol 12.5 mg 10/24/18 10:00 10/25/18 22:16 Coreg PO 12.5 mg BID BUTCH Administration Clonidine HCl 0.2 mg 10/24/18 10:00 10/26/18 08:43 Catapres PO 0.2 mg BID BUTCH Administration Dextrose 50 ml 10/24/18 01:24 D50w (25gm) Syringe IV PRN PRN Hypoglycemia Famotidine 10 mg 10/24/18 10:00 10/26/18 08:39 Pepcid PO 10 mg BID BUTCH Administration Heparin Sodium (Porcine) 5,000 unit 10/24/18 10:00 10/26/18 08:40 Heparin SUB-Q 5,000 unit Q12HR BUTCH Administration Cefepime HCl 1 gm in 100 mls @ 200 mls/hr 10/24/18 18:00 10/25/18 18:08 Maxipime/Ns 1 Gm/100 Ml IV 200 mls/hr Q24H BUTCH Administration Sodium Chloride 100 mls @ 999 mls/hr 10/24/18 12:31 Nacl 0.9% IV ALANA PRN Hypotension during HD Vancomycin HCl 1 gm in 250 mls @ 167.007 mls/hr 10/25/18 20:00 10/25/18 22:08 Vancomycin/Ns 1 Gm/250 Ml IV 167.007 mls/hr MoWeFr BUTCH Administration Insulin Human Regular 0 units 10/24/18 07:30 10/26/18 08:46 Humulin R SUB-Q 1 units AC BUTCH Administration Protocol Insulin Human Regular 0 units 10/24/18 22:00 10/25/18 22:17 Humulin R SUB-Q 3 units QHS BUTCH Administration Protocol Isosorbide Mononitrate 60 mg 10/24/18 10:00 10/26/18 08:41 Imdur PO 60 mg DAILY BUTCH Administration Lacosamide 50 mg 10/24/18 10:00 10/26/18 08:39 Vimpat PO 50 mg Q12HR [facility] Administration Levetiracetam 750 mg 10/24/18 10:00 10/26/18 08:40 Keppra PO 750 mg BID BUTCH Administration Lisinopril 40 mg 10/24/18 10:00 10/26/18 08:41 Zestril PO 40 mg DAILY BUTCH Administration Lorazepam 1 mg 10/24/18 01:09 Ativan IV Q2H PRN Seizures Ondansetron HCl 4 mg 10/24/18 01:09 Zofran IV Q8H PRN Nausea And Vomiting Oxycodone/Acetaminophen 1 tab 10/24/18 04:05 Percocet 5/325 PO Q6H PRN Pain, Moderate (4-6) Tizanidine HCl 4 mg 10/24/18 08:00 10/26/18 08:43 Zanaflex PO 4 mg TID BUTCH Administration
--- NOTE | 2018-10-26 10:22 | Progress Note ---
Assessment and Plan Assessment and plan: 74-year-old woman with history of end-stage renal disease. She presents with seizure-like activity at home. She was shaking and jerking. Brought to the hospital found to have fever and extensive right lung pneumonia -The patient does suffer from dementia, lives at home with her daughter, Plan/Hospital course Continue broad-spectrum antibiotics, follow-up blood cultures, ID consult Continue dialysis per nephrology, continue home medications -seizure likely provoked by fever/sepsis -Speech pathology consult Diagnosis Sepsis Extensive R lung PNA, nosocomial acquired plus aspiration pneumonia, It appears she has chronic aspiration ESRD HTN status epilepticus History Interval history: had fever overnight c/o productive cough she has been coughing after eating no vomiting no more seizures Hospitalist Physical - Physical exam Narrative exam: General.: Appears ill HEENT: Moist mucous membranes, extraocular muscles intact, no lymphadenopathy Neck: supple Cardiac: S1-S2 heard Lungs: R lung crackles Abdomen: soft , nontender, nondistended, bowel sounds positive Extremities: no edema clubbing or cyanosis Skin: no rash or lesions Neurologic: oriented to self , knows she is in a hospital, she does not know which hospital, does not know the year, doesn't know why she is here. -Psych, demented, calm and cooperative - Constitutional Vitals: Temp Pulse Resp BP Pulse Ox 98.0 F 80 20 152/69 93 10/26/18 08:36 10/26/18 08:39 10/26/18 08:36 10/26/18 08:41 10/26/18 08:59 Results - Labs CBC & Chem 7: 10/23/18 21:06 10/23/18 23:01 Labs: Laboratory Last Values WBC 8.2 K/mm3 (4.5-11.0) 10/23/18 21:06 RBC 4.44 M/mm3 (3.65-5.03) 10/23/18 21:06 Hgb 12.8 gm/dl (10.1-14.3) 10/23/18 21:06 Hct 39.5 % (30.3-42.9) 10/23/18 21:06 MCV 89 fl (79-97) 10/23/18 21:06 MCH 29 pg (28-32) 10/23/18 21:06 MCHC 32 % (30-34) 10/23/18 21:06 RDW 16.7 % (13.2-15.2) H 10/23/18 21:06 Plt Count 89 K/mm3 (140-440) L 10/23/18 21:06 Lymph % (Auto) 6.7 % (13.4-35.0) L 10/23/18 21:06 Rogers % (Auto) 8.4 % (0.0-7.3) H 10/23/18 21:06 Eos % (Auto) 0.0 % (0.0-4.3) 10/23/18 21:06 Baso % (Auto) 0.4 % (0.0-1.8) 10/23/18 21:06 Lymph # 0.5 K/mm3 (1.2-5.4) L 10/23/18 21:06 Rogers # 0.7 K/mm3 (0.0-0.8) 10/23/18 21:06 Eos # 0.0 K/mm3 (0.0-0.4) 10/23/18 21:06 Baso # 0.0 K/mm3 (0.0-0.1) 10/23/18 21:06 Seg Neutrophils % 84.5 % (40.0-70.0) H 10/23/18 21:06 Seg Neutrophils # 7.0 K/mm3 (1.8-7.7) 10/23/18 21:06 Sodium 133 mmol/L (137-145) L 10/23/18 23:01 Potassium 3.9 mmol/L (3.6-5.0) 10/23/18 23:01 Chloride 94.6 mmol/L (98-107) L 10/23/18 23:01 Carbon Dioxide 27 mmol/L (22-30) 10/23/18 23:01 Anion Gap 15 mmol/L 10/23/18 23:01 BUN 29 mg/dL (7-17) H 10/23/18 23:01 Creatinine 3.8 mg/dL (0.7-1.2) H 10/23/18 23:01 Estimated GFR 14 ml/min 10/23/18 23:01 BUN/Creatinine Ratio 8 % 10/23/18 23:01 Glucose 361 mg/dL (65-100) H 10/23/18 23:01 POC Glucose 159 (70-105) H 10/26/18 06:14 Calcium 8.2 mg/dL (8.4-10.2) L 10/23/18 23:01 Total Bilirubin 0.80 mg/dL (0.1-1.2) 10/23/18 21:06 AST 24 units/L (5-40) 10/23/18 21:06 ALT 19 units/L (7-56) 10/23/18 21:06 Alkaline Phosphatase 76 units/L (35-129) 10/23/18 21:06 Total Creatine Kinase 91 units/L (30-135) 10/23/18 21:06 NT-Pro-B Natriuret Pep 15025 pg/mL (0-900) H 10/23/18 21:06 Total Protein 6.5 g/dL (6.3-8.2) 10/23/18 21:06 Albumin 3.5 g/dL (3.9-5) L 10/23/18 21:06 Albumin/Globulin Ratio 1.2 % 10/23/18 21:06 TSH 0.998 mlU/mL (0.270-4.200) 10/23/18 21:06 Plasma/Serum Alcohol < 0.01 % (0-0.07) 10/23/18 21:06 Hepatitis A IgM Ab Non-reactive (NonReactive) 10/25/18 15:26 Hep Bs Antigen Non-reactive (Negative) 10/25/18 15: Hep B Core IgM Ab Non-reactive (NonReactive) 10/25/18 15:26 Hepatitis C Antibody Reactive (NonReactive) A 10/25/18 15:26
[2018-10-26] MEDS: COREG PO SCH ×2 (10:44→21:15)
--- NOTE | 2018-10-26 13:29 | Consultation ---
History of Present Illness - Reason for Consult Consult date: 10/26/18 PNA Requesting physician: CLEMENTE WILKINSON - History of Present Illness This patient is a 78- year old female with past medical history of insulin- dependent diabetes, hypertension, coronary artery disease, CHF, end-stage renal disease on hemodialysis. presents to the ED on 10/23/18 with complaints of seizure-like activity at home. The family called EMS because she was "shaking all day". The patient says that she keeps jerking uncontrollably but also says that she has been awake and cognizant of this jerking motion. Patient complains of some left-sided neck pain but otherwise denies any headache.On admission WBC 8.2, Creatinine 3.8, Temperature 98., HR 86, BP 153/57. Chest xray shows Interval development of large area pulmonary consolidation, probable pneumonia, right mid and lower lung pan. Blood cultures were drawn and show no growth to date Review of Systems: General: no fevers, chills no rigors HEENT: no new visual disturbance Respiratory: No cough, sputum, hemoptysis or shortness of breath Cardiovascular: No chest pain, syncope Gastrointestinal: No nausea, vomiting. Chronic diarrhea Genitourinary: No dysuria or hematuria Musculoskeletal: No new or worsening neck pain or back pain Neurologic: No headaches, seizures Hematologic: No easy bruising or bleeding Endocrine: No night sweats. acute weight loss + Skin: +bilateral heel wounds, Psychiatric: No suicidal or homicidal ideation Past History Past Medical History: diabetes, dialysis, hypertension Past Surgical History: Other (history of creation of AV access) Social history: other (history of smoking or drinking) Family history: no significant family history Medications and Allergies Allergies Allergy/AdvReac Type Severity Reaction Status Date / Time No Known Allergies Allergy Unverified 02/02/18 15:43 Home Medications Medication Instructions Recorded Confirmed Last Taken Type Aspirin 81 mg PO DAILY 08/13/18 10/24/18 08/11/18 History Baclofen 10 mg PO TID 08/13/18 10/24/18 08/11/18 History Tizanidine HCl [Zanaflex] 4 mg PO TID 08/13/18 10/24/18 08/11/18 History amLODIPine [Norvasc] 10 mg PO DAILY 08/13/18 10/24/18 08/11/18 History Lacosamide [Vimpat] 50 mg PO Q12HR #60 tablet 08/18/18 10/24/18 Unknown Rx Acetaminophen [Acetaminophen TAB] 650 mg PO Q4H PRN tablet 09/02/18 10/24/18 Unknown Rx Aspirin [Aspirin BABY CHEW TAB] 81 mg PO DAILY tab.chew 09/02/18 10/24/18 Unknown Rx Famotidine [Pepcid] 10 mg PO BID tablet 09/02/18 10/24/18 Unknown Rx Lispro Insulin [Humalog] 0 unit SUB-Q ACHS units 09/02/18 10/24/18 Unknown Rx oxyCODONE /ACETAMINOPHEN [Percocet 1 tab PO Q6H PRN tablet 09/02/18 10/24/18 Unknown Rx 5/325 mg] Carvedilol [Coreg] 12.5 mg PO BID tablet 10/15/18 10/24/18 Unknown Rx Gabapentin [Neurontin] 100 mg PO Q12H #60 capsule 10/15/18 10/24/18 Unknown Rx ISOSORBIDE MONOnitrate [Imdur ER] 60 mg PO DAILY tablet 10/15/18 10/24/18 Unknown Rx Insulin Regular, Human [HumuLIN R] 0 units SUB-Q QHS units 10/15/18 10/24/18 Unknown Rx Lisinopril [Zestril TAB] 40 mg PO DAILY tablet 10/15/18 10/24/18 Unknown Rx cloNIDine [Catapres] 0.2 mg PO BID tablet 10/15/18 10/24/18 Unknown Rx Active Meds: Active Medications Acetaminophen (Tylenol) 650 mg PO Q4H PRN PRN Reason: Fever >101 Last Admin: 10/25/18 00:02 Dose: 650 mg Documented by: Amlodipine Besylate (Norvasc) 10 mg PO DAILY [facility] Last Admin: 10/26/18 10:46 Dose: Not Given Documented by: Aspirin (Baby Aspirin) 81 mg PO DAILY [facility] Last Admin: 10/26/18 10:43 Dose: Not Given Documented by: Benzonatate (Tessalon Perles) 100 mg PO Q8HR [facility] Carvedilol (Coreg) 12.5 mg PO BID [facility] Last Admin: 10/26/18 10:44 Dose: 12.5 mg Documented by: Clonidine HCl (Catapres) 0.2 mg PO BID [facility] Last Admin: 10/26/18 10:43 Dose: 0.2 mg Documented by: Dextrose (D50w (25gm) Syringe) 50 ml IV PRN PRN PRN Reason: Hypoglycemia Famotidine (Pepcid) 10 mg PO BID [facility] Last Admin: 10/26/18 10:46 Dose: Not Given Documented by: Guaifenesin (Guaifenesin Dm Syrup) 10 ml PO Q4H PRN PRN Reason: Cough Heparin Sodium (Porcine) (Heparin) 5,000 unit SUB-Q Q12HR [facility] Last Admin: 10/26/18 10:44 Dose: Not Given Documented by: Cefepime HCl (Maxipime/Ns 1 Gm/100 Ml) 1 gm in 100 mls @ 200 mls/hr IV Q24H [facility] Last Admin: 10/25/18 18:08 Dose: 200 mls/hr Documented by: Sodium Chloride (Nacl 0.9%) 100 mls @ 999 mls/hr IV ALANA PRN PRN Reason: Hypotension during HD Vancomycin HCl (Vancomycin/Ns 1 Gm/250 Ml) 1 gm in 250 mls @ 167.007 mls/hr IV MoWeFr [facility] Last Admin: 10/25/18 22:08 Dose: 167.007 mls/hr Documented by: Insulin Human Regular (Humulin R) 0 units SUB-Q AC [facility]; Protocol Last Admin: 10/26/18 12:45 Dose: 3 units Documented by: Insulin Human Regular (Humulin R) 0 units SUB-Q QHS [facility]; Protocol Last Admin: 10/25/18 22:17 Dose: 3 units Documented by: Isosorbide Mononitrate (Imdur) 60 mg PO DAILY [facility] Last Admin: 10/26/18 10:44 Dose: Not Given Documented by: Lacosamide (Vimpat) 50 mg PO Q12HR [facility] Last Admin: 10/26/18 10:46 Dose: Not Given Documented by: Levetiracetam (Keppra) 750 mg PO BID [facility] Last Admin: 10/26/18 10:45 Dose: Not Given Documented by: Lisinopril (Zestril) 40 mg PO DAILY [facility] Last Admin: 10/26/18 10:47 Dose: Not Given Documented by: Lorazepam (Ativan) 1 mg IV Q2H PRN PRN Reason: Seizures Ondansetron HCl (Zofran) 4 mg IV Q8H PRN PRN Reason: Nausea And Vomiting Oxycodone/Acetaminophen (Percocet 5/325) 1 tab PO Q6H PRN PRN Reason: Pain, Moderate (4-6) Tizanidine HCl (Zanaflex) 4 mg PO TID BUTCH Last Admin: 10/26/18 08:43 Dose: 4 mg Documented by: Physical Examination - Physical Exam Narrative exam: Constitutional: Alert, cooperative. mild distress observed Head, Ears, Nose: Normocephalic, atraumatic. External ears, nose normal Eyes: Conjunctivae/corneas clear. No icterus. No ptosis. Neck: Supple, no meningeal signs Oral: dentition poor. thrush + on buccal mucosa and oropharynx. Cardiovascular: S1, S2 normal. Respiratory: bilateral rhonci throughout GI: Soft, non-tender; bowel sounds normal. No peritoneal signs Musculoskeletal: No pedal edema, no cyanosis. Skin: + bilateral heel ulcers- dry, healed,, wrapped Hem/Lymphatic: No palpable cervical or supraclavicular nodes. No lymphangitis Psych: Mood ok. Affect normal Neurological: Awake, alert, oriented. - Constitutional Vitals: Vital Signs Temp Pulse Resp BP Pulse Ox 98.0 F 78 22 152/69 31 L 10/26/18 08:36 10/26/18 10:00 10/26/18 10:00 10/26/18 08:41 10/26/18 10:00 Temperature -Last 24 Hours Temperature 98.0 F Temperature 99.5 F Temperature 99.3 F Temperature 100.2 F Temperature 97.0 F Temperature 97.9 F Temperature 98.0 F Results - Labs CBC & Chem 7: 10/23/18 21:06 10/23/18 23:01 Labs: Abnormal lab results 10/25/18 10/25/18 10/25/18 Range/Units 15:26 18:24 21:38 POC Glucose 340 H 289 H (70-105) Hepatitis C Antibody Reactive A (NonReactive) 10/26/18 10/26/18 Range/Units 06:14 11:46 POC Glucose 159 H 275 H (70-105) Hepatitis C Antibody (NonReactive) Assessment and Plan Cultures: 10/23/18 Blood: no growth to date 10/24/17 Sputum: contaminated A/P: 78-year-old patient with a history of insulin-dependent diabetes, hypertension, coronary artery disease, CHF, end-stage renal disease on hemodialysis.. Now admitted with 1. New Fevers: etiology right lung pneumonia. no leukocytosis, blood cultures show no growth thus far, Sputum cultures is contaminated. Currently being treated with Vancomycin and Cefepime. 2. Multifocal Pneumonia: likely aspiration vs. HCAP (patient goes to HD). Chest CT shows extensive pneumonia primarily in the right middle and right lower lobe with additional patchy infiltrates in the right upper lobe and left upper lobe. 3. Seizure activity: continue to monitor 4. ESRD on Hemodialysis: Nephrology following 5. Type 2 Diabetes: uncontrolled 6. CAD: Plan: -f/u blood cultures -reorder sputum culture -order CRP -Continue Vancomycin and Cefepime renally dosed. -add flagyl -swallowing eval d/w Dr. Miguelito Call, [facility] M: [phone] O:[phone]
[2018-10-26] MEDS: TESSALON PERLES PO SCH ×2 (16:06→21:15)
--- NOTE | 2018-10-26 17:52 | Event Note ---
Date: 10/26/18 Physician Attestation: I have personally seen and examined patient. I personally discussed and directed assessment and management with BUSINESS OBJECTS ANALYST Oneyda. 78-year-old patient with a history of diabetes, hypertension, coronary artery disease, CHF, end-stage renal disease on hemodialysis admitted with fever likely from multifocal pneumonia ?aspiration (in the setting of seizures) vs. HCAP (patient goes to HD). Chest CT showed extensive pneumonia primarily in the right middle and right lower lobe with additional patchy infiltrates in the right upper lobe and left upper lobe. Continue cefepime, vanco and flagyl. Monitor seizures. Cefepime can lower seizure threshold. Swallowing eval recommended. Denise Heller MD Infectious Diseases Licensing Director [facility] ([facility] M [phone] O [phone]
[2018-10-26] MEDS: FLAGYL 500 MG/100 ML 500 MG/100 ML BAG IV SCH (21:15)
[2018-10-26] MEDS ORDERED: FLAGYL 500 MG/100 ML 500 MG/100 ML BAG IV SCH ×2 (22:00)
[2018-10-27] MEDS: TESSALON PERLES PO SCH ×3 (05:58→21:32)
[2018-10-27] MEDS: FLAGYL 500 MG/100 ML 500 MG/100 ML BAG IV SCH ×3 (05:58→21:31)
[2018-10-27] MEDS: HumuLIN R SUB-Q SCH ×4 (07:30→21:34)
[2018-10-27] MEDS: MAXIPIME/NS 1 GM/100 ML 1 GM/100 ML BAG IV SCH ×2 (07:47→17:52)
[2018-10-27] MEDS: ZANAFLEX PO SCH ×3 (08:00→21:32)
[2018-10-27] MEDS: PERCOCET 5/325 PO PRN ×3 (08:20→18:19)
--- NOTE | 2018-10-27 09:25 | Progress Note ---
Assessment and Plan Assessment and plan: 74-year-old woman with history of end-stage renal disease. She presents with seizure-like activity at home. She was shaking and jerking. Brought to the hospital found to have fever and extensive right lung pneumonia -The patient does suffer from dementia, lives at home with her daughter, Plan/Hospital course Continue broad-spectrum antibiotics, follow-up blood cultures, ID consult Continue dialysis per nephrology, continue home medications -seizure likely provoked by fever/sepsis -Speech pathology consult Diagnosis Sepsis Extensive R lung PNA, nosocomial acquired plus aspiration pneumonia, It appears she has chronic aspiration ESRD HTN status epilepticus History Interval history: no fevers c/o productive cough she has been coughing after eating no vomiting no more seizures Hospitalist Physical - Physical exam Narrative exam: General.: Appears ill HEENT: Moist mucous membranes, extraocular muscles intact, no lymphadenopathy Neck: supple Cardiac: S1-S2 heard Lungs: R lung crackles Abdomen: soft , nontender, nondistended, bowel sounds positive Extremities: no edema clubbing or cyanosis Skin: no rash or lesions Neurologic: oriented to self , knows she is in a hospital, she does not know which hospital, does not know the year, doesn't know why she is here. -Psych, demented, calm and cooperative - Constitutional Vitals: Temp Pulse Resp BP Pulse Ox 98.8 F 77 18 157/60 95 10/27/18 07:31 10/27/18 07:31 10/27/18 07:31 10/27/18 07:31 10/27/18 07:31 Results - Labs CBC & Chem 7: 10/23/18 21:06 10/23/18 23:01 Labs: Laboratory Last Values WBC 8.2 K/mm3 (4.5-11.0) 10/23/18 21:06 RBC 4.44 M/mm3 (3.65-5.03) 10/23/18 21:06 Hgb 12.8 gm/dl (10.1-14.3) 10/23/18 21:06 Hct 39.5 % (30.3-42.9) 10/23/18 21:06 MCV 89 fl (79-97) 10/23/18 21:06 MCH 29 pg (28-32) 10/23/18 21:06 MCHC 32 % (30-34) 10/23/18 21:06 RDW 16.7 % (13.2-15.2) H 10/23/18 21:06 Plt Count 89 K/mm3 (140-440) L 10/23/18 21:06 Lymph % (Auto) 6.7 % (13.4-35.0) L 10/23/18 21:06 Garrett % (Auto) 8.4 % (0.0-7.3) H 10/23/18 21:06 Eos % (Auto) 0.0 % (0.0-4.3) 10/23/18 21:06 Baso % (Auto) 0.4 % (0.0-1.8) 10/23/18 21:06 Lymph # 0.5 K/mm3 (1.2-5.4) L 10/23/18 21:06 Garrett # 0.7 K/mm3 (0.0-0.8) 10/23/18 21:06 Eos # 0.0 K/mm3 (0.0-0.4) 10/23/18 21:06 Baso # 0.0 K/mm3 (0.0-0.1) 10/23/18 21:06 Seg Neutrophils % 84.5 % (40.0-70.0) H 10/23/18 21:06 Seg Neutrophils # 7.0 K/mm3 (1.8-7.7) 10/23/18 21:06 Sodium 133 mmol/L (137-145) L 10/23/18 23:01 Potassium 3.9 mmol/L (3.6-5.0) 10/23/18 23:01 Chloride 94.6 mmol/L (98-107) L 10/23/18 23:01 Carbon Dioxide 27 mmol/L (22-30) 10/23/18 23:01 Anion Gap 15 mmol/L 10/23/18 23:01 BUN 29 mg/dL (7-17) H 10/23/18 23:01 Creatinine 3.8 mg/dL (0.7-1.2) H 10/23/18 23:01 Estimated GFR 14 ml/min 10/23/18 23:01 BUN/Creatinine Ratio 8 % 10/23/18 23:01 Glucose 361 mg/dL (65-100) H 10/23/18 23:01 POC Glucose 114 (70-105) H 10/27/18 05:31 Calcium 8.2 mg/dL (8.4-10.2) L 10/23/18 23:01 Total Bilirubin 0.80 mg/dL (0.1-1.2) 10/23/18 21:06 AST 24 units/L (5-40) 10/23/18 21:06 ALT 19 units/L (7-56) 10/23/18 21:06 Alkaline Phosphatase 76 units/L (35-129) 10/23/18 21:06 Total Creatine Kinase 91 units/L (30-135) 10/23/18 21:06 C-Reactive Protein 10.10 mg/dL (0.00-1.30) H 10/26/18 20:31 NT-Pro-B Natriuret Pep 68591 pg/mL (0-900) H 10/23/18 21:06 Total Protein 6.5 g/dL (6.3-8.2) 10/23/18 21:06 Albumin 3.5 g/dL (3.9-5) L 10/23/18 21:06 Albumin/Globulin Ratio 1.2 % 10/23/18 21:06 TSH 0.998 mlU/mL (0.270-4.200) 10/23/18 21:06 Plasma/Serum Alcohol < 0.01 % (0-0.07) 10/23/18 21:06 Hepatitis A IgM Ab Non-reactive (NonReactive) 10/25/18 15:26 Hep Bs Antigen Non-reactive (Negative) 10/25/18 15:26 Hep B Core IgM Ab Non-reactive (NonReactive) 10/25/18 15:26 Hepatitis C Antibody Reactive (NonReactive) A 10/25/18 15:26
--- NOTE | 2018-10-27 12:44 | Progress Note ---
Assessment and Plan Impression * End-stage renal disease on maintenance hemodialysis * Pneumonia * Hypertension * Diabetes * History of seizure disorder * Hepatitis C Recommendations * Patient is undergoing hemodialysis. Tolerating well. * Continue hemodialysis on [facility] schedule as outpatient * Antibiotic as per primary team * Avoid nephrotoxins * Adjust diet and meds for ESRD state * No IV, BP or venipuncture and her access arm * Epogen per protocol * Binders with meals Subjective Date of service: 10/27/18 Interval history: Patient is comfortable. Undergoing hemodialysis. Tolerating well. Shortness of breath much improved Objective - Vital Signs Vital signs: Vital Signs - 12hr 10/27/18 10/27/18 10/27/18 04:05 07:31 09:10 Temperature 99.8 F H 98.8 F Pulse Rate 75 77 72 Respiratory 20 18 Rate Blood Pressure 153/58 157/60 161/64 O2 Sat by Pulse 96 95 Oximetry 10/27/18 10/27/18 10/27/18 09:15 09:30 09:45 Temperature Pulse Rate 73 72 50 L Respiratory Rate Blood Pressure 154/64 155/44 75/42 O2 Sat by Pulse Oximetry 10/27/18 10/27/18 10/27/18 10:00 10:15 10:16 Temperature 98.8 F Pulse Rate 72 76 80 Respiratory 18 Rate Blood Pressure 167/67 167/68 160/64 O2 Sat by Pulse 96 Oximetry 10/27/18 10/27/18 10/27/18 10:30 10:45 11:00 Temperature Pulse Rate 75 74 73 Respiratory Rate Blood Pressure 164/69 160/63 158/70 O2 Sat by Pulse Oximetry 10/27/18 10/27/18 11:15 11:20 Temperature Pulse Rate 85 90 Respiratory Rate Blood Pressure 95/20 95/20 O2 Sat by Pulse Oximetry - General Appearance General appearance: well-developed, well-nourished, appears stated age EENT: PERRL, mucous membranes moist Neck: no JVD, no thyromegaly, no carotid bruit, supple Respiratory: Present: Ronchi (few scattered rhonchi) Cardiology: regular, normal heart rate, S1S2, no murmurs Gastrointestinal: normal, normoactive bowel sounds Integumentary: other (AV fistula left upper arm. Cannulated for dialysis) - Lab 10/23/18 21:06 10/23/18 23:01 Most recent lab results Calcium 8.2 mg/dL (8.4-10.2) L 10/23/18 23:01 Medications & Allergies - Medications Allergies/Adverse Reactions: Allergies No Known Allergies Allergy (Unverified 02/02/18 15:43) Home Medications: Home Medications Medication Instructions Recorded Confirmed Last Taken Type Aspirin 81 mg PO DAILY 08/13/18 10/24/18 08/11/18 History Baclofen 10 mg PO TID 08/13/18 10/24/18 08/11/18 History Tizanidine HCl [Zanaflex] 4 mg PO TID 08/13/18 10/24/18 08/11/18 History amLODIPine [Norvasc] 10 mg PO DAILY 08/13/18 10/24/18 08/11/18 History Lacosamide [Vimpat] 50 mg PO Q12HR #60 tablet 08/18/18 10/24/18 Unknown Rx Acetaminophen [Acetaminophen TAB] 650 mg PO Q4H PRN tablet 09/02/18 10/24/18 Unknown Rx Aspirin [Aspirin BABY CHEW TAB] 81 mg PO DAILY tab.chew 09/02/18 10/24/18 Unknown Rx Famotidine [Pepcid] 10 mg PO BID tablet 09/02/18 10/24/18 Unknown Rx Lispro Insulin [Humalog] 0 unit SUB-Q ACHS units 09/02/18 10/24/18 Unknown Rx oxyCODONE /ACETAMINOPHEN [Percocet 1 tab PO Q6H PRN tablet 09/02/18 10/24/18 Unknown Rx 5/325 mg] Carvedilol [Coreg] 12.5 mg PO BID tablet 10/15/18 10/24/18 Unknown Rx Gabapentin [Neurontin] 100 mg PO Q12H #60 capsule 10/15/18 10/24/18 Unknown Rx ISOSORBIDE MONOnitrate [Imdur ER] 60 mg PO DAILY tablet 10/15/18 10/24/18 Unknown Rx Insulin Regular, Human [HumuLIN R] 0 units SUB-Q QHS units 10/15/18 10/24/18 Unknown Rx Lisinopril [Zestril TAB] 40 mg PO DAILY tablet 10/15/18 10/24/18 Unknown Rx cloNIDine [Catapres] 0.2 mg PO BID tablet 10/15/18 10/24/18 Unknown Rx Active Medications: Generic Name Dose Route Start Last Admin Trade Name Freq PRN Reason Stop Dose Admin Acetaminophen 650 mg 10/24/18 01:07 10/25/18 00:02 Tylenol PO 650 mg Q4H PRN Administration Fever >101 Amlodipine Besylate 10 mg 10/24/18 10:00 10/26/18 10:46 Norvasc PO Not Given DAILY BUTCH Aspirin 81 mg 10/24/18 10:00 10/26/18 10:43 Baby Aspirin PO Not Given DAILY BUTCH Benzonatate 100 mg 10/26/18 14:00 10/27/18 05:58 Tessalon Perles PO 100 mg Q8HR BUTCH Administration Carvedilol 12.5 mg 10/24/18 10:00 10/26/18 21:15 Coreg PO 12.5 mg BID BUTCH Administration Clonidine HCl 0.2 mg 10/24/18 10:00 10/26/18 21:15 Catapres PO 0.2 mg BID BUTCH Administration Dextrose 50 ml 10/24/18 01:24 D50w (25gm) Syringe IV PRN PRN Hypoglycemia Famotidine 10 mg 10/24/18 10:00 10/26/18 21:16 Pepcid PO 10 mg BID BUTCH Administration Guaifenesin 10 ml 10/26/18 10:00 Guaifenesin Dm Syrup PO Q4H PRN Cough Heparin Sodium (Porcine) 5,000 unit 10/24/18 10:00 10/26/18 21:16 Heparin SUB-Q 5,000 unit Q12HR BUTCH Administration Cefepime HCl 1 gm in 100 mls @ 200 mls/hr 10/24/18 18:00 10/27/18 07:47 Maxipime/Ns 1 Gm/100 Ml IV Not Given Q24H BUTCH Sodium Chloride 100 mls @ 999 mls/hr 10/24/18 12:31 Nacl 0.9% IV ALANA PRN Hypotension during HD Vancomycin HCl 1 gm in 250 mls @ 167.007 mls/hr 10/25/18 20:00 10/25/18 22:08 Vancomycin/Ns 1 Gm/250 Ml IV 167.007 mls/hr MoWeFr BUTCH Administration Metronidazole 500 mg in 100 mls @ 100 mls/hr 10/26/18 22:00 10/27/18 05:58 Flagyl 500 Mg/100 Ml IV 100 mls/hr Q8HR BUTCH Administration Protocol Insulin Human Regular 0 units 10/24/18 07:30 10/27/18 07:30 Humulin R SUB-Q Not Given AC [facility] Protocol Insulin Human Regular 0 units 10/24/18 22:00 10/26/18 21:17 Humulin R SUB-Q 4 units QHS BUTCH Administration Protocol Isosorbide Mononitrate 60 mg 10/24/18 10:00 10/26/18 10:44 Imdur PO Not Given DAILY [facility] Lacosamide 50 mg 10/24/18 10:00 10/26/18 21:15 Vimpat PO 50 mg Q12HR BUTCH Administration Levetiracetam 750 mg 10/24/18 10:00 10/26/18 21:33 Keppra PO 750 mg BID [facility] Administration Lisinopril 40 mg 10/24/18 10:00 10/26/18 10:47 Zestril PO Not Given DAILY [facility] Lorazepam 1 mg 10/24/18 01:09 Ativan IV Q2H PRN Seizures Ondansetron HCl 4 mg 10/24/18 01:09 Zofran IV Q8H PRN Nausea And Vomiting Oxycodone/Acetaminophen 1 tab 10/24/18 04:05 10/27/18 08:20 Percocet 5/325 PO 1 tab Q6H PRN Administration Pain, Moderate (4-6) Tizanidine HCl 4 mg 10/24/18 08:00 10/27/18 08:00 Zanaflex PO Not Given TID [facility]
--- NOTE | 2018-10-27 13:53 | Progress Note ---
Assessment and Plan Cultures: 10/23/18 Blood: no growth to date 10/24/17 Sputum: contaminated A/P: 78-year-old patient with a history of insulin-dependent diabetes, hypertension, coronary artery disease, CHF, end-stage renal disease on hemodialysis.. Now admitted with: 1. New Fevers: etiology likely right lung pneumonia. No leukocytosis, blood cultures no growth thus far. Sputum cultures is contaminated. 2. Multifocal Pneumonia: likely aspiration vs. HCAP (patient goes to HD). Chest CT shows extensive pneumonia primarily in the right middle and right lower lobe with additional patchy infiltrates in the right upper lobe and left upper lobe. Currently being treated with Vancomycin and Cefepime. 3. Seizure activity: continue to monitor 4. ESRD on Hemodialysis: Nephrology following 5. Type 2 Diabetes: uncontrolled 6. CAD 7. HCV serology positive Plan: -f/u blood cultures -order CRP -Continue Vancomycin, Cefepime renally dosed and flagyl -swallowing eval -RUQ -if abdominal pain continues will check CT abdomen Will follow Denise Heller MD Infectious Diseases Change Management Analyst [facility], [place], [facility] ([facility]) M [phone] O [phone] Subjective Date of service: 10/27/18 Principal diagnosis: fever Interval history: Patient report feeling sick, reports still fever, but no fever documented, c/o abdominal pain. No seizures. Review of Systems: General: no fever, chills, nightsweats, unintentional weight change, or change in appetite Cutaneous: no rash, pruritus Gastrointestinal: no nausea, vomiting, +abd pain Objective - Exam Narrative Exam: General appearance: Alert in NAD, conversant Eyes: anicteric sclerae, moist conjunctivae; no lid-lag; PERRLA HENT: Atraumatic; oropharynx clear with moist mucous membranes and no mucosal ulcerations/no oral thrush,+poor dentition; normal hard and soft palate. Normal external ears. Neck: Trachea midline; supple, no thyromegaly or lymphadenopathy Lungs: CTA CV: RRR, no murmurs Abdomen: Soft, +TTP left sided Extremities: No peripheral edema or extremity lymphadenopathy Skin: Normal temperature, turgor and texture; no rash, ulcers or subcutaneous nodules Psych: Appropriate affect, alert and oriented to person, place and time. Neuro: alert and oriented x 3. Moving all extermities - Constitutional Vitals: Vital Signs Temp Pulse Resp BP Pulse Ox 98.8 F 85 18 174/73 96 10/27/18 12:25 10/27/18 12:25 10/27/18 12:25 10/27/18 12:25 10/27/18 10:00 Temperature -Last 24 Hours Temperature 98.8 F Temperature 98.8 F Temperature 98.8 F Temperature 99.8 F Temperature 98.7 F Temperature 98.6 F Temperature 97.9 F - Labs CBC & Chem 7: 10/23/18 21:06 10/23/18 23:01 Labs: Abnormal lab results 10/26/18 10/26/18 10/26/18 Range/Units 16:41 20:31 20:45 POC Glucose 237 H 307 H (70-105) C-Reactive Protein 10.10 H (0.00-1.30) mg/dL 10/27/18 Range/Units 05:31 POC Glucose 114 H (70-105) C-Reactive Protein (0.00-1.30) mg/dL
[2018-10-27] MEDS: PEPCID PO SCH ×2 (14:14→21:32)
[2018-10-27] MEDS: BABY ASPIRIN PO SCH (14:14)
[2018-10-27] MEDS: CATAPRES PO SCH ×2 (14:14→21:32)
[2018-10-27] MEDS: COREG PO SCH ×2 (14:15→21:32)
[2018-10-27] MEDS: IMDUR PO SCH (14:15)
[2018-10-27] MEDS: NORVASC PO SCH (14:16)
[2018-10-27] MEDS: VIMPAT PO SCH ×2 (14:16→21:32)
[2018-10-27] MEDS: HEPARIN SUB-Q SCH ×2 (14:29→21:33)
[2018-10-27] MEDS: KEPPRA PO SCH ×2 (14:33→21:31)
[2018-10-27] MEDS: ZESTRIL PO SCH (14:47)
[2018-10-27] MEDS: NEURONTIN PO SCH (15:13)
[2018-10-27] MEDS: MIRALAX 3350 PO SCH (17:52)
[2018-10-27] MEDS: VANCOMYCIN/NS 1 GM/250 ML 1 GM/250 ML BAG IV SCH (21:30)
[2018-10-28] MEDS: NEURONTIN PO SCH ×2 (04:04→14:52)
[2018-10-28] MEDS: TESSALON PERLES PO SCH ×3 (06:04→22:15)
[2018-10-28] MEDS: FLAGYL 500 MG/100 ML 500 MG/100 ML BAG IV SCH ×3 (06:05→22:27)
[2018-10-28] MEDS: ZANAFLEX PO SCH ×3 (08:44→22:16)
--- NOTE | 2018-10-28 09:09 | Ultrasound Report ---
ULTRASOUND ABDOMEN LIMITED: TECHNIQUE: Transabdominal ultrasound with color Doppler interrogation. HISTORY: Liver mass, cirrhosis. COMPARISON: CT abdomen pelvis without contrast dated 08/12/18. FINDINGS: LIVER: Unremarkable. No evidence for cirrhosis on ultrasound or recent CT. No focal liver mass is detected. BILIARY SYSTEM: There are numerous shadowing gallstones in a contracted gallbladder. No abnormal dilatation or findings to suggest acute cholecystitis. The CBD is slightly prominent measuring 6 mm. No obvious choledocholithiasis. PANCREAS: Normal. RIGHT KIDNEY: The right kidney is slightly atrophic and echogenic measuring 8.6 cm in length. No focal renal lesion, nephrolithiasis or hydronephrosis is identified. PROXIMAL AORTA: Normal. ASCITES: None. Small right pleural effusion is noted IMPRESSION: No evidence for cirrhosis Multiple gallstones in a contracted gallbladder. Slightly prominent common bile duct measuring 6 mm. This could be within normal limits for this patient's age. No obvious choledocholithiasis. Mild chronic renal parenchymal disease. Small right pleural effusion.
--- NOTE | 2018-10-28 09:15 | Progress Note ---
Assessment and Plan Impression * End-stage renal disease on maintenance hemodialysis * Pneumonia * Hypertension * Type II diabetes mellitus * History of seizure disorder * Hepatitis C * Thrombocytopenia Recommendations * Continue hemodialysis on MWF schedule as outpatient * UF as tolerated * Antibiotic as per primary team * Avoid nephrotoxins * Adjust diet and meds for ESRD state * No IV, BP or venipuncture and her access arm * Epogen per protocol Subjective Date of service: 10/28/18 Principal diagnosis: fever Interval history: Patient reports cough productive of yellow sputum. Denies SOB. Reports weakness. Objective - Vital Signs Vital signs: Vital Signs - 12hr 10/27/18 10/27/18 10/27/18 21:32 23:00 23:07 Temperature 98.4 F Pulse Rate 75 62 Pulse Rate [ 75 Apical] Respiratory 18 16 Rate Blood Pressure 148/59 128/44 O2 Sat by Pulse 96 100 Oximetry 10/28/18 10/28/18 10/28/18 04:29 07:07 08:28 Temperature 99.2 F 98.8 F Pulse Rate 64 69 Pulse Rate [ Apical] Respiratory 16 20 Rate Blood Pressure 141/50 146/61 O2 Sat by Pulse 97 98 92 Oximetry - General Appearance General appearance: well-developed, frail EENT: ATNC Respiratory: Present: Other (+rhonchi) Cardiology: regular, S1S2 Gastrointestinal: normal, no tenderness, no distended Integumentary: no rash, warm and dry Musculoskeletal: other (no edema) Psychiatric: cooperative - Lab 10/23/18 21:06 10/23/18 23:01 Most recent lab results Calcium 8.2 mg/dL (8.4-10.2) L 10/23/18 23:01 Medications & Allergies - Medications Allergies/Adverse Reactions: Allergies No Known Allergies Allergy (Unverified 02/02/18 15:43) Home Medications: Home Medications Medication Instructions Recorded Confirmed Last Taken Type Aspirin 81 mg PO DAILY 08/13/18 10/24/18 08/11/18 History Baclofen 10 mg PO TID 08/13/18 10/24/18 08/11/18 History Tizanidine HCl [Zanaflex] 4 mg PO TID 08/13/18 10/24/18 08/11/18 History amLODIPine [Norvasc] 10 mg PO DAILY 11/23/18 02/03/19 11/21/18 History Lacosamide [Vimpat] 50 mg PO Q12HR #60 tablet 08/18/18 10/24/18 Unknown Rx Acetaminophen [Acetaminophen TAB] 650 mg PO Q4H PRN tablet 09/02/18 10/24/18 Unknown Rx Aspirin [Aspirin BABY CHEW TAB] 81 mg PO DAILY tab.chew 09/02/18 10/24/18 Unknown Rx Famotidine [Pepcid] 10 mg PO BID tablet 09/02/18 10/24/18 Unknown Rx Lispro Insulin [Humalog] 0 unit SUB-Q ACHS units 09/02/18 10/24/18 Unknown Rx oxyCODONE /ACETAMINOPHEN [Percocet 1 tab PO Q6H PRN tablet 09/02/18 10/24/18 Unknown Rx 5/325 mg] Carvedilol [Coreg] 12.5 mg PO BID tablet 10/15/18 10/24/18 Unknown Rx Gabapentin [Neurontin] 100 mg PO Q12H #60 capsule 10/15/18 10/24/18 Unknown Rx ISOSORBIDE MONOnitrate [Imdur ER] 60 mg PO DAILY tablet 10/15/18 10/24/18 Unknown Rx Insulin Regular, Human [HumuLIN R] 0 units SUB-Q QHS units 10/15/18 10/24/18 Unknown Rx Lisinopril [Zestril TAB] 40 mg PO DAILY tablet 10/15/18 10/24/18 Unknown Rx cloNIDine [Catapres] 0.2 mg PO BID tablet 10/15/18 10/24/18 Unknown Rx Active Medications: Generic Name Dose Route Start Last Admin Trade Name Jasonq PRN Reason Stop Dose Admin Acetaminophen 650 mg 10/24/18 01:07 10/25/18 00:02 Tylenol PO 650 mg Q4H PRN Administration Fever >101 Amlodipine Besylate 10 mg 10/24/18 10:00 10/27/18 14:16 Norvasc PO 10 mg DAILY BUTCH Administration Aspirin 81 mg 10/24/18 10:00 10/27/18 14:14 Baby Aspirin PO 81 mg DAILY BUTCH Administration Benzonatate 100 mg 10/26/18 14:00 10/28/18 06:04 Tessalon Perles PO 100 mg Q8HR BUTCH Administration Carvedilol 12.5 mg 10/24/18 10:00 10/27/18 21:32 Coreg PO 12.5 mg BID BUTCH Administration Clonidine HCl 0.2 mg 10/24/18 10:00 10/27/18 21:32 Catapres PO 0.2 mg BID BUTCH Administration Dextrose 50 ml 10/24/18 01:24 D50w (25gm) Syringe IV PRN PRN Hypoglycemia Famotidine 10 mg 10/24/18 10:00 10/27/18 21:32 Pepcid PO 10 mg BID BUTCH Administration Gabapentin 100 mg 10/27/18 15:00 10/28/18 04:04 Neurontin PO 100 mg Q12H BUTCH Administration Guaifenesin 10 ml 10/26/18 10:00 Guaifenesin Dm Syrup PO Q4H PRN Cough Heparin Sodium (Porcine) 5,000 unit 10/24/18 10:00 10/27/18 21:33 Heparin SUB-Q 5,000 unit Q12HR BUTCH Administration Cefepime HCl 1 gm in 100 mls @ 200 mls/hr 10/24/18 18:00 10/27/18 17:52 Maxipime/Ns 1 Gm/100 Ml IV 200 mls/hr Q24H BUTCH Administration Sodium Chloride 100 mls @ 999 mls/hr 10/24/18 12:31 Nacl 0.9% IV ALANA PRN Hypotension during HD Vancomycin HCl 1 gm in 250 mls @ 167.007 mls/hr 10/25/18 20:00 10/27/18 21:30 Vancomycin/Ns 1 Gm/250 Ml IV 167.007 mls/hr MoWeFr BUTCH Administration Metronidazole 500 mg in 100 mls @ 100 mls/hr 10/26/18 22:00 10/28/18 06:05 Flagyl 500 Mg/100 Ml IV 100 mls/hr Q8HR BUTCH Administration Protocol Insulin Human Regular 0 units 10/24/18 07:30 10/27/18 17:52 Humulin R SUB-Q 3 units AC BUTCH Administration Protocol Insulin Human Regular 0 units 10/24/18 22:00 10/27/18 21:34 Humulin R SUB-Q 2 units QHS BUTCH Administration Protocol Isosorbide Mononitrate 60 mg 10/24/18 10:00 10/27/18 14:15 Imdur PO 60 mg DAILY BUTCH Administration Lacosamide 50 mg 10/24/18 10:00 10/27/18 21:32 Vimpat PO 50 mg Q12HR BUTCH Administration Levetiracetam 750 mg 10/24/18 10:00 10/27/18 21:31 Keppra PO 750 mg BID BUTCH Administration Lisinopril 40 mg 10/24/18 10:00 10/27/18 14:47 Zestril PO Not Given DAILY BUTCH Lorazepam 1 mg 10/24/18 01:09 Ativan IV Q2H PRN Seizures Ondansetron HCl 4 mg 10/24/18 01:09 Zofran IV Q8H PRN Nausea And Vomiting Oxycodone/Acetaminophen 1 tab 10/24/18 04:05 10/27/18 18:19 Percocet 5/325 PO 1 tab Q6H PRN Administration Pain, Moderate (4-6) Polyethylene Glycol 17 gm 10/27/18 17:00 10/27/18 17:52 Miralax 3350 PO 17 gm QDAY BUTCH Administration Tizanidine HCl 4 mg 10/24/18 08:00 10/28/18 08:44 Zanaflex PO 4 mg TID BUTCH Administration
--- NOTE | 2018-10-28 11:45 | Progress Note ---
Assessment and Plan ultures: 10/23/18 Blood: no growth to date 10/24/17 Sputum: contaminated A/P: 78-year-old patient with a history of insulin-dependent diabetes, hypertension, coronary artery disease, CHF, end-stage renal disease on hemodialysis.. Now admitted with: 1. New Fevers: etiology likely right lung pneumonia. No leukocytosis, blood cultures no growth thus far. Sputum cultures is contaminated. CRP 10.10 2. Multifocal Pneumonia: likely aspiration vs. HCAP (patient goes to HD). Chest CT shows extensive pneumonia primarily in the right middle and right lower lobe with additional patchy infiltrates in the right upper lobe and left upper lobe. Currently being treated with Vancomycin and Cefepime. 3. Seizure activity: continue to monitor 4. ESRD on Hemodialysis: Nephrology following 5. Type 2 Diabetes: uncontrolled 6. CAD 7. HCV serology positive Plan: -f/u blood cultures -Continue Vancomycin for 7 days, D4 of D7 -Continue Cefepime renally dosed for 7 days , D5 of D7 -Continue flagyl - dosed for 7 days , D5 of D7 if discharged will do levaquin 750 mg po q 24 h and doxycylcine 100 mg po BID for a total of 7 days ending 10-30-18 [facility] M: [phone] O:[phone] Subjective Date of service: 10/28/18 Principal diagnosis: fever Interval history: Patient seen and examined, Stated that she was feeling better today, although still weak. Denied RUQ pain. Objective - Exam Narrative Exam: Constitutional: Alert, cooperative. generalized weakness. No acute distress Head, Ears, Nose: Normocephalic, atraumatic. External ears, nose normal Eyes: Conjunctivae/corneas clear. No icterus. No ptosis. Neck: Supple, no meningeal signs Oral: dentition poor, no thrush Cardiovascular: S1, S2 normal. Respiratory: bilateral rhonci throughout GI: Soft, non-tender; bowel sounds normal. No peritoneal signs Musculoskeletal: No pedal edema, no cyanosis. Skin: + bilateral heel ulcers- dry, healed,, wrapped Hem/Lymphatic: No palpable cervical or supraclavicular nodes. No lymphangitis Psych: Mood ok. Affect normal Neurological: Awake, alert, oriented. - Constitutional Vitals: Vital Signs Temp Pulse Resp BP Pulse Ox 98.8 F 69 20 146/61 92 10/28/18 07:07 10/28/18 07:07 10/28/18 07:07 10/28/18 07:07 10/28/18 08:28 Temperature -Last 24 Hours Temperature 98.8 F Temperature 99.2 F Temperature 98.4 F Temperature 98.6 F Temperature 97.9 F Temperature 98.8 F - Labs CBC & Chem 7: 10/23/18 21:06 10/23/18 23:01 Labs: Abnormal lab results 10/27/18 10/27/18 10/28/18 Range/Units 17:02 20:34 05:24 POC Glucose 286 H 223 H 114 H (70-105) 10/28/18 Range/Units 11:13 POC Glucose 143 H (70-105)
--- NOTE | 2018-10-28 12:34 | Fluoroscopy Report ---
MODIFIED BARIUM SWALLOW History: dysphagia. Findings: Video radiography was provided by the radiologist for speech therapy to assess the swallowing mechanism. 1 fluoroscopic image was captured. Impression: Successful modified barium swallow.
[2018-10-28] MEDS: KEPPRA PO SCH ×2 (13:22→22:18)
[2018-10-28] MEDS: MIRALAX 3350 PO SCH (13:23)
[2018-10-28] MEDS: HEPARIN SUB-Q SCH ×2 (13:23→22:19)
[2018-10-28] MEDS: VIMPAT PO SCH ×2 (13:23→22:15)
[2018-10-28] MEDS: NORVASC PO SCH (13:24)
[2018-10-28] MEDS: IMDUR PO SCH (13:24)
[2018-10-28] MEDS: COREG PO SCH ×2 (13:24→22:16)
[2018-10-28] MEDS: ZESTRIL PO SCH (13:24)
[2018-10-28] MEDS: CATAPRES PO SCH ×2 (13:24→22:18)
[2018-10-28] MEDS: HumuLIN R SUB-Q SCH ×4 (13:25→22:32)
[2018-10-28] MEDS: BABY ASPIRIN PO SCH (13:25)
[2018-10-28] MEDS: PEPCID PO SCH ×2 (13:42→22:16)
--- NOTE | 2018-10-28 14:01 | Progress Note ---
Assessment and Plan Assessment and plan: 74-year-old woman with history of end-stage renal disease. She presents with seizure-like activity at home. She was shaking and jerking. Brought to the hospital found to have fever and extensive right lung pneumonia -The patient does suffer from dementia, lives at home with her daughter, Plan/Hospital course Continue broad-spectrum antibiotics, follow-up blood cultures, ID consult Continue dialysis per nephrology, continue home medications -seizure likely provoked by fever/sepsis, now resolved -Speech pathology consult appreciated, for MBS today Diagnosis Sepsis Extensive R lung PNA, nosocomial acquired plus aspiration pneumonia, It appears she has chronic aspiration ESRD HTN status epilepticus History Interval history: no fevers c/o productive cough she has been coughing after eating no vomiting no more seizures Hospitalist Physical - Physical exam Narrative exam: General.: Appears chronically ill HEENT: Moist mucous membranes, extraocular muscles intact, no lymphadenopathy Neck: supple Cardiac: S1-S2 heard Lungs: R lung crackles Abdomen: soft , nontender, nondistended, bowel sounds positive Extremities: no edema clubbing or cyanosis Skin: no rash or lesions Neurologic: No focal deficits, now oriented 3 Psych, and cooperative - Constitutional Vitals: Temp Pulse Resp BP Pulse Ox 98.8 F 69 20 146/61 92 10/28/18 07:07 10/28/18 07:07 10/28/18 07:07 10/28/18 07:07 10/28/18 08:28 Results - Labs CBC & Chem 7: 10/23/18 21:06 10/23/18 23:01 Labs: Laboratory Last Values WBC 8.2 K/mm3 (4.5-11.0) 10/23/18 21:06 RBC 4.44 M/mm3 (3.65-5.03) 10/23/18 21:06 Hgb 12.8 gm/dl (10.1-14.3) 10/23/18 21:06 Hct 39.5 % (30.3-42.9) 10/23/18 21:06 MCV 89 fl (79-97) 10/23/18 21:06 MCH 29 pg (28-32) 10/23/18 21:06 MCHC 32 % (30-34) 10/23/18 21:06 RDW 16.7 % (13.2-15.2) H 10/23/18 21:06 Plt Count 89 K/mm3 (140-440) L 10/23/18 21:06 Lymph % (Auto) 6.7 % (13.4-35.0) L 10/23/18 21:06 Waldo % (Auto) 8.4 % (0.0-7.3) H 10/23/18 21:06 Eos % (Auto) 0.0 % (0.0-4.3) 10/23/18 21:06 Baso % (Auto) 0.4 % (0.0-1.8) 10/23/18 21:06 Lymph # 0.5 K/mm3 (1.2-5.4) L 10/23/18 21:06 Waldo # 0.7 K/mm3 (0.0-0.8) 10/23/18 21:06 Eos # 0.0 K/mm3 (0.0-0.4) 10/23/18 21:06 Baso # 0.0 K/mm3 (0.0-0.1) 10/23/18 21:06 Seg Neutrophils % 84.5 % (40.0-70.0) H 10/23/18 21:06 Seg Neutrophils # 7.0 K/mm3 (1.8-7.7) 10/23/18 21:06 Sodium 133 mmol/L (137-145) L 10/23/18 23:01 Potassium 3.9 mmol/L (3.6-5.0) 10/23/18 23:01 Chloride 94.6 mmol/L (98-107) L 10/23/18 23:01 Carbon Dioxide 27 mmol/L (22-30) 10/23/18 23:01 Anion Gap 15 mmol/L 10/23/18 23:01 BUN 29 mg/dL (7-17) H 10/23/18 23:01 Creatinine 3.8 mg/dL (0.7-1.2) H 10/23/18 23:01 Estimated GFR 14 ml/min 10/23/18 23:01 BUN/Creatinine Ratio 8 % 10/23/18 23:01 Glucose 361 mg/dL (65-100) H 10/23/18 23:01 POC Glucose 143 (70-105) H 10/28/18 11:13 Calcium 8.2 mg/dL (8.4-10.2) L 10/23/18 23:01 Total Bilirubin 0.80 mg/dL (0.1-1.2) 10/23/18 21:06 AST 24 units/L (5-40) 10/23/18 21:06 ALT 19 units/L (7-56) 10/23/18 21:06 Alkaline Phosphatase 76 units/L (35-129) 10/23/18 21:06 Total Creatine Kinase 91 units/L (30-135) 10/23/18 21:06 C-Reactive Protein 10.10 mg/dL (0.00-1.30) H 10/26/18 20:31 NT-Pro-B Natriuret Pep 70905 pg/mL (0-900) H 10/23/18 21:06 Total Protein 6.5 g/dL (6.3-8.2) 10/23/18 21:06 Albumin 3.5 g/dL (3.9-5) L 10/23/18 21:06 Albumin/Globulin Ratio 1.2 % 10/23/18 21:06 TSH 0.998 mlU/mL (0.270-4.200) 10/23/18 21:06 Plasma/Serum Alcohol < 0.01 % (0-0.07) 10/23/18 21:06 Hepatitis A IgM Ab Non-reactive (NonReactive) 10/25/18 15:26 Hep Bs Antigen Non-reactive (Negative) 10/25/18 15:26 Hep B Core IgM Ab Non-reactive (NonReactive) 10/25/18 15:26 Hepatitis C Antibody Reactive (NonReactive) A 10/25/18 15:26
[2018-10-28] MEDS: MAXIPIME/NS 1 GM/100 ML 1 GM/100 ML BAG IV SCH (18:02)
[2018-10-29] MEDS: NEURONTIN PO SCH ×3 (03:52→20:42)
[2018-10-29] MEDS: TESSALON PERLES PO SCH ×3 (06:45→21:33)
[2018-10-29] MEDS: FLAGYL 500 MG/100 ML 500 MG/100 ML BAG IV SCH ×3 (06:49→21:44)
--- NOTE | 2018-10-29 09:03 | Progress Note ---
Assessment and Plan Impression * End-stage renal disease on maintenance hemodialysis * Pneumonia * Hypertension * Type II diabetes mellitus * History of seizure disorder * Hepatitis C * Thrombocytopenia Recommendations * Continue hemodialysis on MWF schedule as outpatient * UF as tolerated * Antibiotic as per primary team * Avoid nephrotoxins * Adjust diet and meds for ESRD state * No IV, BP or venipuncture and her access arm * Epogen per protocol * PT consult Subjective Date of service: 10/29/18 Principal diagnosis: fever Interval history: Patient complains of feeling weak. Objective - Vital Signs Vital signs: Vital Signs - 12hr 10/28/18 10/29/18 10/29/18 22:16 00:03 05:48 Temperature 98.3 F 98.3 F Pulse Rate 62 59 L 56 L Respiratory 17 17 Rate Blood Pressure 112/40 127/46 126/44 O2 Sat by Pulse 100 97 Oximetry 10/29/18 10/29/18 07:11 07:36 Temperature 98.4 F 97.9 F Pulse Rate 58 L 62 Respiratory 20 18 Rate Blood Pressure 130/45 136/49 O2 Sat by Pulse 98 98 Oximetry - General Appearance General appearance: well-developed, frail EENT: ATNC Respiratory: Present: Other (+rhonchi) Cardiology: regular, S1S2 Gastrointestinal: normal, no tenderness, no distended Integumentary: warm and dry Musculoskeletal: other (no edema) Psychiatric: cooperative - Lab 10/23/18 21:06 10/23/18 23:01 Most recent lab results Calcium 8.2 mg/dL (8.4-10.2) L 10/23/18 23:01 Medications & Allergies - Medications Allergies/Adverse Reactions: Allergies No Known Allergies Allergy (Unverified 02/02/18 15:43) Home Medications: Home Medications Medication Instructions Recorded Confirmed Last Taken Type Aspirin 81 mg PO DAILY 08/13/18 10/24/18 08/11/18 History Baclofen 10 mg PO TID 08/13/18 10/24/18 08/11/18 History Tizanidine HCl [Zanaflex] 4 mg PO TID 08/13/18 10/24/18 08/11/18 History amLODIPine [Norvasc] 10 mg PO DAILY 08/13/18 10/24/18 08/11/18 History Lacosamide [Vimpat] 50 mg PO Q12HR #60 tablet 08/18/18 10/24/18 Unknown Rx Acetaminophen [Acetaminophen TAB] 650 mg PO Q4H PRN tablet 09/02/18 10/24/18 Unknown Rx Aspirin [Aspirin BABY CHEW TAB] 81 mg PO DAILY tab.chew 09/02/18 10/24/18 Unknown Rx Famotidine [Pepcid] 10 mg PO BID tablet 09/02/18 10/24/18 Unknown Rx Lispro Insulin [Humalog] 0 unit SUB-Q ACHS units 09/02/18 10/24/18 Unknown Rx oxyCODONE /ACETAMINOPHEN [Percocet 1 tab PO Q6H PRN tablet 09/02/18 10/24/18 Unknown Rx 5/325 mg] Carvedilol [Coreg] 12.5 mg PO BID tablet 10/15/18 10/24/18 Unknown Rx Gabapentin [Neurontin] 100 mg PO Q12H #60 capsule 10/15/18 10/24/18 Unknown Rx ISOSORBIDE MONOnitrate [Imdur ER] 60 mg PO DAILY tablet 10/15/18 10/24/18 Unknown Rx Insulin Regular, Human [HumuLIN R] 0 units SUB-Q QHS units 10/15/18 10/24/18 Unknown Rx Lisinopril [Zestril TAB] 40 mg PO DAILY tablet 10/15/18 10/24/18 Unknown Rx cloNIDine [Catapres] 0.2 mg PO BID tablet 10/15/18 10/24/18 Unknown Rx Active Medications: Generic Name Dose Route Start Last Admin Trade Name Freq PRN Reason Stop Dose Admin Acetaminophen 650 mg 10/24/18 01:07 10/25/18 00:02 Tylenol PO 650 mg Q4H PRN Administration Fever >101 Amlodipine Besylate 10 mg 10/24/18 10:00 10/28/18 13:24 Norvasc PO 10 mg DAILY BUTCH Administration Aspirin 81 mg 10/24/18 10:00 10/28/18 13:25 Baby Aspirin PO 81 mg DAILY BUTCH Administration Benzonatate 100 mg 10/26/18 14:00 10/29/18 06:45 Tessalon Perles PO 100 mg Q8HR BUTCH Administration Carvedilol 12.5 mg 10/24/18 10:00 10/28/18 22:16 Coreg PO 12.5 mg BID BUTCH Administration Clonidine HCl 0.2 mg 10/24/18 10:00 10/28/18 22:18 Catapres PO 0.2 mg BID BUTCH Administration Dextrose 50 ml 10/24/18 01:24 D50w (25gm) Syringe IV PRN PRN Hypoglycemia Famotidine 10 mg 10/24/18 10:00 10/28/18 22:16 Pepcid PO 10 mg BID BUTCH Administration Gabapentin 100 mg 10/27/18 15:00 10/29/18 03:52 Neurontin PO 100 mg Q12H BUTCH Administration Guaifenesin 10 ml 10/26/18 10:00 Guaifenesin Dm Syrup PO Q4H PRN Cough Heparin Sodium (Porcine) 5,000 unit 10/24/18 10:00 10/28/18 22:19 Heparin SUB-Q 5,000 unit Q12HR BUTCH Administration Cefepime HCl 1 gm in 100 mls @ 200 mls/hr 10/24/18 18:00 10/28/18 18:02 Maxipime/Ns 1 Gm/100 Ml IV 200 mls/hr Q24H BUTCH Administration Sodium Chloride 100 mls @ 999 mls/hr 10/24/18 12:31 Nacl 0.9% IV ALANA PRN Hypotension during HD Vancomycin HCl 1 gm in 250 mls @ 167.007 mls/hr 10/25/18 20:00 10/27/18 21:30 Vancomycin/Ns 1 Gm/250 Ml IV 167.007 mls/hr MoWeFr BUTCH Administration Metronidazole 500 mg in 100 mls @ 100 mls/hr 10/26/18 22:00 10/29/18 06:49 Flagyl 500 Mg/100 Ml IV 100 mls/hr Q8HR BUTCH Administration Protocol Insulin Human Regular 0 units 10/24/18 07:30 10/28/18 18:02 Humulin R SUB-Q 5 units AC BUTCH Administration Protocol Insulin Human Regular 0 units 10/24/18 22:00 10/28/18 22:32 Humulin R SUB-Q 3 units QHS BUTCH Administration Protocol Isosorbide Mononitrate 60 mg 10/24/18 10:00 10/28/18 13:24 Imdur PO 60 mg DAILY BUTCH Administration Lacosamide 50 mg 10/24/18 10:00 10/28/18 22:15 Vimpat PO 50 mg Q12HR BUTCH Administration Levetiracetam 750 mg 10/24/18 10:00 10/28/18 22:18 Keppra PO 750 mg BID BUTCH Administration Lisinopril 40 mg 10/24/18 10:00 10/28/18 13:24 Zestril PO 40 mg DAILY BUTCH Administration Lorazepam 1 mg 10/24/18 01:09 Ativan IV Q2H PRN Seizures Ondansetron HCl 4 mg 10/24/18 01:09 Zofran IV Q8H PRN Nausea And Vomiting Oxycodone/Acetaminophen 1 tab 10/24/18 04:05 10/27/18 18:19 Percocet 5/325 PO 1 tab Q6H PRN Administration Pain, Moderate (4-6) Polyethylene Glycol 17 gm 10/27/18 17:00 10/28/18 13:23 Miralax 3350 PO 17 gm QDAY BUTCH Administration Tizanidine HCl 4 mg 10/24/18 08:00 10/28/18 22:16 Zanaflex PO 4 mg TID BUTCH Administration
[2018-10-29] MEDS: HumuLIN R SUB-Q SCH ×4 (09:17→21:36)
[2018-10-29] MEDS: ZANAFLEX PO SCH ×3 (09:18→21:34)
[2018-10-29] MEDS: KEPPRA PO SCH ×2 (10:00→21:34)
[2018-10-29] MEDS: VIMPAT PO SCH ×2 (10:00→21:33)
[2018-10-29] MEDS: CATAPRES PO SCH ×2 (10:00→21:35)
[2018-10-29] MEDS: ZESTRIL PO SCH (10:00)
[2018-10-29] MEDS: MIRALAX 3350 PO SCH (10:00)
[2018-10-29] MEDS: IMDUR PO SCH (10:00)
[2018-10-29] MEDS: PEPCID PO SCH ×2 (10:00→21:33)
[2018-10-29] MEDS: HEPARIN SUB-Q SCH ×2 (10:00→21:36)
[2018-10-29] MEDS: BABY ASPIRIN PO SCH (10:00)
[2018-10-29] MEDS: NORVASC PO SCH (10:00)
[2018-10-29] MEDS: COREG PO SCH ×2 (10:00→21:34)
[2018-10-29 10:41] LABS: Hematocrit 29.4 % (30.3-42.9); Hemoglobin 9.3 gm/dl (10.1-14.3); Mean Corpuscular HGB Conc 32 % (30-34); Mean Corpuscular Volume 89 fl (79-97); Platelet Count 111 K/mm3 (140-440); Red Blood Count 3.29 M/mm3 (3.65-5.03); Red Cell Distribution Width 16.3 % (13.2-15.2)
[2018-10-29 11:50] LABS: Basophils % (Manual) 0 % (0.0-1.8); Total Cells Counted 100
[2018-10-29 11:51] LABS: Anisocytosis 1+; Hypochromasia 1+; Ovalocytes Few; Platelet Estimate Consistent w Auto
--- NOTE | 2018-10-29 15:15 | Progress Note ---
Assessment and Plan Assessment and plan: 74-year-old woman with history of end-stage renal disease. She presents with seizure-like activity at home. She was shaking and jerking. Brought to the hospital found to have fever and extensive right lung pneumonia -The patient does suffer from dementia, lives at home with her daughter, Plan/Hospital course Continue broad-spectrum antibiotics, follow-up blood cultures, ID consult appreciated, US abdomen neg Continue dialysis per nephrology, continue home medications -seizure likely provoked by fever/sepsis, now resolved -Speech pathology consult appreciated, sp MBS which was normal, on regular diet with think liquids Diagnosis Sepsis Extensive R lung PNA, nosocomial acquired plus aspiration pneumonia, It appears she has chronic aspiration ESRD HTN status epilepticus Dc in 1-2 days after abx recommended by ID History Interval history: no fevers c/o productive cough no vomiting no more seizures Hospitalist Physical - Physical exam Narrative exam: General.: Appears well HEENT: Moist mucous membranes, extraocular muscles intact, no lymphadenopathy Neck: supple Cardiac: S1-S2 heard Lungs: R lung crackles Abdomen: soft , nontender, nondistended, bowel sounds positive Extremities: no edema clubbing or cyanosis Skin: no rash or lesions Neurologic: No focal deficits, now oriented 3 Psych, and cooperative - Constitutional Vitals: Temp Pulse Resp BP Pulse Ox 98.2 F 67 18 186/79 98 10/29/18 14:00 10/29/18 14:00 10/29/18 14:00 10/29/18 14:00 10/29/18 14:00 Results - Labs CBC & Chem 7: 10/29/18 10:25 10/29/18 10:00 Labs: Laboratory Last Values WBC 3.6 K/mm3 (4.5-11.0) L 10/29/18 10:25 RBC 3.29 M/mm3 (3.65-5.03) L 10/29/18 10:25 Hgb 9.3 gm/dl (10.1-14.3) L 10/29/18 10:25 Hct 29.4 % (30.3-42.9) L 10/29/18 10:25 MCV 89 fl (79-97) 10/29/18 10:25 MCH 28 pg (28-32) 10/29/18 10:25 MCHC 32 % (30-34) 10/29/18 10:25 RDW 16.3 % (13.2-15.2) H 10/29/18 10:25 Plt Count 111 K/mm3 (140-440) L 10/29/18 10:25 Lymph % (Auto) 6.7 % (13.4-35.0) L 10/23/18 21:06 [place] % (Auto) 8.4 % (0.0-7.3) H 10/23/18 21:06 Eos % (Auto) 0.0 % (0.0-4.3) 10/23/18 21:06 Baso % (Auto) 0.4 % (0.0-1.8) 10/23/18 21:06 Lymph # 0.5 K/mm3 (1.2-5.4) L 10/23/18 21:06 [place] # 0.7 K/mm3 (0.0-0.8) 10/23/18 21:06 Eos # 0.0 K/mm3 (0.0-0.4) 10/23/18 21:06 Baso # 0.0 K/mm3 (0.0-0.1) 10/23/18 21:06 Add Manual Diff Complete 10/29/18 10:25 Total Counted 100 10/29/18 10:25 Seg Neutrophils % 84.5 % (40.0-70.0) H 10/23/18 21:06 Seg Neuts % (Manual) 76.0 % (40.0-70.0) H 10/29/18 10:25 Band Neutrophils % 0 % 10/29/18 10:25 Lymphocytes % (Manual) 13.0 % (13.4-35.0) L 10/29/18 10:25 Reactive Lymphs % (Man) 0 % 10/29/18 10:25 Monocytes % (Manual) 7.0 % (0.0-7.3) 10/29/18 10:25 Eosinophils % (Manual) 4.0 % (0.0-4.3) 10/29/18 10:25 Basophils % (Manual) 0 % (0.0-1.8) 10/29/18 10:25 Metamyelocytes % 0 % 10/29/18 10:25 Myelocytes % 0 % 10/29/18 10:25 Promyelocytes % 0 % 10/29/18 10:25 Blast Cells % 0 % 10/29/18 10:25 Nucleated RBC % Not Reportable 10/29/18 10:25 Seg Neutrophils # 7.0 K/mm3 (1.8-7.7) 10/23/18 21:06 Seg Neutrophils # Man 2.7 K/mm3 (1.8-7.7) 10/29/18 10:25 Band Neutrophils # 0.0 K/mm3 10/29/18 10:25 Lymphocytes # (Manual) 0.5 K/mm3 (1.2-5.4) L 10/29/18 10:25 Abs React Lymphs (Man) 0.0 K/mm3 10/29/18 10:25 Monocytes # (Manual) 0.3 K/mm3 (0.0-0.8) 10/29/18 10:25 Eosinophils # (Manual) 0.1 K/mm3 (0.0-0.4) 10/29/18 10:25 Basophils # (Manual) 0.0 K/mm3 (0.0-0.1) 10/29/18 10:25 Metamyelocytes # 0.0 K/mm3 10/29/18 10:25 Myelocytes # 0.0 K/mm3 10/29/18 10:25 Promyelocytes # 0.0 K/mm3 10/29/18 10:25 Blast Cells # 0.0 K/mm3 10/29/18 10:25 WBC Morphology Not Reportable 10/29/18 10:25 Hypersegmented Neuts Not Reportable 10/29/18 10:25 Hyposegmented Neuts Not Reportable 10/29/18 10:25 Hypogranular Neuts Not Reportable 10/29/18 10:25 Smudge Cells Not Reportable 10/29/18 10:25 Toxic Granulation Not Reportable 10/29/18 10:25 Toxic Vacuolation Not Reportable 10/29/18 10:25 Dohle Bodies Not Reportable 10/29/18 10:25 Pelger-Huet Anomaly Not Reportable 10/29/18 10:25 Richard Rods Not Reportable 10/29/18 10:25 Platelet Estimate Consistent w auto 10/29/18 10:25 Clumped Platelets Not Reportable 10/29/18 10:25 Plt Clumps, EDTA Not Reportable 10/29/18 10:25 Large Platelets Not Reportable 10/29/18 10:25 Giant Platelets Not Reportable 10/29/18 10:25 Platelet Satelliting Not Reportable 10/29/18 10:25 Plt Morphology Comment Not Reportable 10/29/18 10:25 RBC Morphology Not Reportable 10/29/18 10:25 Dimorphic RBCs Not Reportable 10/29/18 10:25 Polychromasia Not Reportable 10/29/18 10:25 Hypochromasia 1+ 10/29/18 10:25 Poikilocytosis Not Reportable 10/29/18 10:25 Anisocytosis 1+ 10/29/18 10:25 Microcytosis 1+ 10/29/18 10:25 Macrocytosis Not Reportable 10/29/18 10:25 Spherocytes Not Reportable 10/29/18 10:25 Pappenheimer Bodies Not Reportable 10/29/18 10:25 Sickle Cells Not Reportable 10/29/18 10:25 Target Cells Not Reportable 10/29/18 10:25 Tear Drop Cells Not Reportable 10/29/18 10:25 Ovalocytes Few 10/29/18 10:25 Helmet Cells Not Reportable 10/29/18 10:25 Cavazos-[place] Bodies Not Reportable 10/29/18 10:25 [place] Rings Not Reportable 10/29/18 10:25 [place] Cells Not Reportable 10/29/18 10:25 Bite Cells Not Reportable 10/29/18 10:25 Crenated Cell Not Reportable 10/29/18 10:25 Elliptocytes Not Reportable 10/29/18 10:25 Acanthocytes (Spur) Not Reportable 10/29/18 10:25 Rouleaux Not Reportable 10/29/18 10:25 Hemoglobin C Crystals Not Reportable 10/29/18 10:25 Schistocytes Not Reportable 10/29/18 10:25 Malaria parasites Not Reportable 10/29/18 10:25 Cristofer Bodies Not Reportable 10/29/18 10:25 Hem Pathologist Commnt No 10/29/18 10:25 Sodium 138 mmol/L (137-145) 10/29/18 10:00 Potassium 4.6 mmol/L (3.6-5.0) 10/29/18 10:00 Chloride 99.5 mmol/L (98-107) 10/29/18 10:00 Carbon Dioxide 25 mmol/L (22-30) 10/29/18 10:00 Anion Gap 18 mmol/L 10/29/18 10:00 BUN 50 mg/dL (7-17) H 10/29/18 10:00 Creatinine 4.2 mg/dL (0.7-1.2) H 10/29/18 10:00 Estimated GFR 12 ml/min 10/29/18 10:00 BUN/Creatinine Ratio 12 % 10/29/18 10:00 Glucose 219 mg/dL (65-100) H 10/29/18 10:00 POC Glucose 146 (70-105) H 10/29/18 06:29 Calcium 8.0 mg/dL (8.4-10.2) L 10/29/18 10:00 Total Bilirubin 0.80 mg/dL (0.1-1.2) 10/23/18 21:06 AST 24 units/L (5-40) 10/23/18 21:06 ALT 19 units/L (7-56) 10/23/18 21:06 Alkaline Phosphatase 76 units/L (35-129) 10/23/18 21:06 Total Creatine Kinase 91 units/L (30-135) 10/23/18 21:06 C-Reactive Protein 10.10 mg/dL (0.00-1.30) H 10/26/18 20:31 NT-Pro-B Natriuret Pep 67946 pg/mL (0-900) H 10/23/18 21:06 Total Protein 6.5 g/dL (6.3-8.2) 10/23/18 21:06 Albumin 3.5 g/dL (3.9-5) L 10/23/18 21:06 Albumin/Globulin Ratio 1.2 % 10/23/18 21:06 TSH 0.998 mlU/mL (0.270-4.200) 10/23/18 21:06 Random Vancomycin 19.7 ug/mL (0-40.0) 10/29/18 05:00 Plasma/Serum Alcohol < 0.01 % (0-0.07) 10/23/18 21:06 Hepatitis A IgM Ab Non-reactive (NonReactive) 10/25/18 15:26 Hep Bs Antigen Non-reactive (Negative) 10/25/18 15:26 Hep B Core IgM Ab Non-reactive (NonReactive) 10/25/18 15:26 Hepatitis C Antibody Reactive (NonReactive) A 10/25/18 15:26 Nutrition/Malnutrition Assess - Dietary Evaluation Nutrition/Malnutrition Findings: Nutrition Notes Start: 10/28/18 15:19 Freq: Status: Active Protocol: Document 10/28/18 15:19 RM (Rec: 10/28/18 15:33 RM [id number]) Nutrition Notes Need for Assessment generated from: Low BMI Initial or Follow up Assessment Current Diagnosis Diabetes Hypertension Heart Failure Other Pertinent Diagnosis ESRD on HD (M/W/F), Hep C, Seizure disorder, R Lung Pneu Current Diet Low Sodium,Consistent CHO Labs/Tests No recent labs Pertinent Medications Reviewed Height 5 ft 7 in Weight 53.4 kg [place] Body Weight (kg) 61.36 BMI 18.4 Weight Status Underweight Subjective/Other Information Screened for low BMI. MBS performed today and ST recommended continuing current diet per ST note 10/28/18. Pt not in room at time of visit. Tech unsure how much pt has been eating. Recorded PO intake 55% X 3 days (trending up to 75%) Burn Absent Trauma Absent #1 Nutrition Diagnosis Underweight Etiology ESRD on HD, seizure disorder, Hep C As Evidenced by Signs and Symptoms pt BMI of 18.4 Is patient on ventilator? No Is Patient Ambulatory and/or Out of Bed No REE-(Haugen-Micah Lopes-confined to bed) 1256.892 Kcal/Kg value to use for calculation 29 Approximate Energy Requirements Using 1549 kcal/Kg Calculation Used for Recommendations Kcal/kg Additional Notes Protein Needs: 64-80g (1.2-1. 5g/kg) Fluid Needs: 1 ml/kcal Nutrition Intervention Change Diet Order: Consistent CHO,Renal Add Supplement/Snack (indicate name/kcal Nepro 1 daily /protein ) Provides kCal: 425 Provides Protein (gm) 19 Goal #1 Meet at least 75% of calorie and protein needs via PO and ONS intakes Goal #2 Wt gain/maintenance Anticipated Discharge Needs: Unable to determine at this time Follow-Up By: 11/02/18 Additional Comments Follow for PO and ONS intakes, malnutrition assessment
--- NOTE | 2018-10-29 15:28 | Progress Note ---
Assessment and Plan ultures: 10/23/18 Blood: no growth to date 10/24/17 Sputum: contaminated A/P: 78-year-old patient with a history of insulin-dependent diabetes, hypertension, coronary artery disease, CHF, end-stage renal disease on hemodialysis.. Now admitted with: 1. New Fevers: etiology likely right lung pneumonia. No leukocytosis, blood cultures no growth thus far. Sputum cultures is contaminated. CRP 10.10 2. Multifocal Pneumonia: likely aspiration vs. HCAP (patient goes to HD). Chest CT shows extensive pneumonia primarily in the right middle and right lower lobe with additional patchy infiltrates in the right upper lobe and left upper lobe. Currently being treated with Vancomycin and Cefepime. 3. Seizure activity: continue to monitor 4. ESRD on Hemodialysis: Nephrology following 5. Type 2 Diabetes: uncontrolled 6. CAD 7. HCV serology positive Plan: -f/u blood cultures -Continue Vancomycin for 7 days, D5 of D7 -Continue Cefepime renally dosed for 7 days , D6 of D7 -Continue flagyl - dosed for 7 days , D6 of D7 if discharged will do levaquin 750 mg po q 24 h and doxycylcine 100 mg po BID for a total of 7 days ending 10-30-18 Dr. Prince is electronics department manager this weekend, , please call for questions. [facility] M: [phone] O:[phone] Subjective Date of service: 10/29/18 Principal diagnosis: fever Interval history: Patient seen and examined, Stated that she was feeling better today, although still weak. Objective - Exam Narrative Exam: Constitutional: Alert, cooperative. generalized weakness. No acute distress Head, Ears, Nose: Normocephalic, atraumatic. External ears, nose normal Eyes: Conjunctivae/corneas clear. No icterus. No ptosis. Neck: Supple, no meningeal signs Oral: dentition poor, no thrush Cardiovascular: S1, S2 normal. Respiratory: bilateral rhonci throughout GI: Soft, non-tender; bowel sounds normal. No peritoneal signs Musculoskeletal: No pedal edema, no cyanosis. Skin: + bilateral heel ulcers- dry, healed,, wrapped Hem/Lymphatic: No palpable cervical or supraclavicular nodes. No lymphangitis Psych: Mood ok. Affect normal Neurological: Awake, alert, oriented. - Constitutional Vitals: Vital Signs Temp Pulse Resp BP Pulse Ox 97.9 F 68 18 182/78 100 10/29/18 15:13 10/29/18 15:12 10/29/18 15:13 10/29/18 15:12 10/29/18 15:12 Temperature -Last 24 Hours Temperature 97.9 F Temperature 97.9 F Temperature 98.2 F Temperature 97.9 F Temperature 97.9 F Temperature 98.4 F Temperature 98.3 F Temperature 98.3 F Temperature 97.8 F Temperature 98.6 F - Labs CBC & Chem 7: 10/29/18 10:25 10/29/18 10:00 Labs: Abnormal lab results 10/28/18 10/28/18 10/29/18 Range/Units 16:31 21:17 06:29 WBC (4.5-11.0) K/mm3 RBC (3.65-5.03) M/mm3 Hgb (10.1-14.3) gm/dl Hct (30.3-42.9) % RDW (13.2-15.2) % Plt Count (140-440) K/mm3 Seg Neuts % (Manual) (40.0-70.0) % Lymphocytes % (Manual) (13.4-35.0) % Lymphocytes # (Manual) (1.2-5.4) K/mm3 BUN (7-17) mg/dL Creatinine (0.7-1.2) mg/dL Glucose (65-100) mg/dL POC Glucose 356 H 286 H 146 H (70-105) Calcium (8.4-10.2) mg/dL 10/29/18 10/29/18 Range/Units 10:00 10:25 WBC 3.6 L (4.5-11.0) K/mm3 RBC 3.29 L (3.65-5.03) M/mm3 Hgb 9.3 L (10.1-14.3) gm/dl Hct 29.4 L (30.3-42.9) % RDW 16.3 H (13.2-15.2) % Plt Count 111 L (140-440) K/mm3 Seg Neuts % (Manual) 76.0 H (40.0-70.0) % Lymphocytes % (Manual) 13.0 L (13.4-35.0) % Lymphocytes # (Manual) 0.5 L (1.2-5.4) K/mm3 BUN 50 H (7-17) mg/dL Creatinine 4.2 H (0.7-1.2) mg/dL Glucose 219 H (65-100) mg/dL POC Glucose (70-105) Calcium 8.0 L (8.4-10.2) mg/dL
[2018-10-29] MEDS ORDERED: NACL 0.9 (PRIMING MACHINE ONLY DIALYSIS) MC ONE (16:47)
[2018-10-29] MEDS: MAXIPIME/NS 1 GM/100 ML 1 GM/100 ML BAG IV SCH (19:34)
[2018-10-29] MEDS: VANCOMYCIN/NS 1 GM/250 ML 1 GM/250 ML BAG IV SCH (22:47)
[2018-10-30] MEDS: TESSALON PERLES PO SCH ×3 (05:49→21:37)
[2018-10-30] MEDS: FLAGYL 500 MG/100 ML 500 MG/100 ML BAG IV SCH ×3 (05:50→21:36)
[2018-10-30] MEDS: NEURONTIN PO SCH ×2 (05:50→14:58)
[2018-10-30] MEDS: HumuLIN R SUB-Q SCH ×4 (07:43→21:39)
[2018-10-30] MEDS: MIRALAX 3350 PO SCH (09:06)
[2018-10-30] MEDS: IMDUR PO SCH (09:06)
[2018-10-30] MEDS: COREG PO SCH ×2 (09:06→21:38)
[2018-10-30] MEDS: BABY ASPIRIN PO SCH (09:06)
[2018-10-30] MEDS: KEPPRA PO SCH ×2 (09:06→21:37)
[2018-10-30] MEDS: ZANAFLEX PO SCH ×3 (09:06→21:38)
[2018-10-30] MEDS: CATAPRES PO SCH ×2 (09:06→21:38)
[2018-10-30] MEDS: NORVASC PO SCH (09:06)
[2018-10-30] MEDS: PEPCID PO SCH ×2 (09:07→21:38)
[2018-10-30] MEDS: ZESTRIL PO SCH (09:07)
[2018-10-30] MEDS: VIMPAT PO SCH ×2 (09:08→21:38)
[2018-10-30] MEDS: HEPARIN SUB-Q SCH ×2 (09:08→21:38)
--- NOTE | 2018-10-30 09:53 | Progress Note ---
Subjective Principal diagnosis: fever Interval history: Patient was seen today for follow-up on multiple renal related issues Events of this hospitalization noted Resting comfortably in bed Mild bradycardia Patient denies having any chest pain pressure or shortness of breath Vitals labs intake output medications were reviewed Social history: Reviewed Allergies: Reviewed Family history: Reviewed Physical examination HEENT: Oral mucosa moist no pallor or icterus Neck: Supple no JVD Chest: Few basilar crackles CVS: Regular rate and rhythm S1 and S2 heard Abdomen: Soft nontender no suprapubic masses no organomegaly appreciable Extremity: Dry skin less than 1+ peripheral edema Musculoskeletal: No joint effusion noted in knees and ankle Neurological: Alert awake Dermatology: No petechial rashes Psychiatry: No evidence of any agitation and aggression noted Assessment and plan End-stage renal disease: Patient is currently in maintenance hemanalysis on Thursday schedule Anemia in end-stage renal disease: To monitor and follow patient also does have some thrombocytopenia Secondary hyperparathyroidism and bone mineral disorder, periodically check phosphorus and PTH level Malnutrition risk high please consider high protein diet for dialysis patient 1.5 g per KG body weight Blood cultures have been negative for last 5 days Hypertension and volume: Patient does have relative bradycardia would suggest reducing the dose of clonidine to 0.1 and possibly discontinued if needed Multiple underlying comorbidities including hypertension, diabetes, seizure disorder, hepatitis C and thrombocytopenia patient is currently being treated for pneumonia Patient was adequately counseled and educated regarding multiple renal related issues Pertinent lab findings were discussed with patient, patient does exhibit good understanding of renal issues We'll continue to follow and make recommendation from renal standpoint Objective - Vital Signs Vital signs: Vital Signs - 12hr 10/30/18 10/30/18 10/30/18 00:12 02:56 04:52 Temperature 98.6 F 99.0 F Pulse Rate 61 61 Respiratory 18 20 Rate Blood Pressure 158/50 169/53 O2 Sat by Pulse 91 93 91 Oximetry 10/30/18 10/30/18 08:25 09:06 Temperature 99.1 F Pulse Rate 72 301 H Respiratory 18 Rate Blood Pressure 171/57 O2 Sat by Pulse 91 Oximetry - Lab 10/29/18 10:25 10/29/18 10:00 Most recent lab results Calcium 8.0 mg/dL (8.4-10.2) L 10/29/18 10:00 Medications & Allergies - Medications Allergies/Adverse Reactions: Allergies No Known Allergies Allergy (Unverified 02/02/18 15:43) Home Medications: Home Medications Medication Instructions Recorded Confirmed Last Taken Type Aspirin 81 mg PO DAILY 08/13/18 10/24/18 08/11/18 History Baclofen 10 mg PO TID 08/13/18 10/24/18 08/11/18 History Tizanidine HCl [Zanaflex] 4 mg PO TID 08/13/18 10/24/18 08/11/18 History amLODIPine [Norvasc] 10 mg PO DAILY 08/13/18 10/24/18 08/11/18 History Lacosamide [Vimpat] 50 mg PO Q12HR #60 tablet 08/18/18 10/24/18 Unknown Rx Acetaminophen [Acetaminophen TAB] 650 mg PO Q4H PRN tablet 09/02/18 10/24/18 Unknown Rx Aspirin [Aspirin BABY CHEW TAB] 81 mg PO DAILY tab.chew 09/02/18 10/24/18 Unknown Rx Famotidine [Pepcid] 10 mg PO BID tablet 09/02/18 10/24/18 Unknown Rx Lispro Insulin [Humalog] 0 unit SUB-Q ACHS units 09/02/18 10/24/18 Unknown Rx oxyCODONE /ACETAMINOPHEN [Percocet 1 tab PO Q6H PRN tablet 09/02/18 10/24/18 Unknown Rx 5/325 mg] Carvedilol [Coreg] 12.5 mg PO BID tablet 10/15/18 10/24/18 Unknown Rx Gabapentin [Neurontin] 100 mg PO Q12H #60 capsule 10/15/18 10/24/18 Unknown Rx ISOSORBIDE MONOnitrate [Imdur ER] 60 mg PO DAILY tablet 10/15/18 10/24/18 Unknown Rx Insulin Regular, Human [HumuLIN R] 0 units SUB-Q QHS units 10/15/18 10/24/18 Unknown Rx Lisinopril [Zestril TAB] 40 mg PO DAILY tablet 10/15/18 10/24/18 Unknown Rx cloNIDine [Catapres] 0.2 mg PO BID tablet 10/15/18 10/24/18 Unknown Rx Active Medications: Generic Name Dose Route Start Last Admin Trade Name Freq PRN Reason Stop Dose Admin Acetaminophen 650 mg 10/24/18 01:07 10/25/18 00:02 Tylenol PO 650 mg Q4H PRN Administration Fever >101 Amlodipine Besylate 10 mg 10/24/18 10:00 10/30/18 09:06 Norvasc PO 10 mg DAILY BUTCH Administration Aspirin 81 mg 10/24/18 10:00 10/30/18 09:06 Baby Aspirin PO 81 mg DAILY BUTCH Administration Benzonatate 100 mg 10/26/18 14:00 10/30/18 05:49 Tessalon Perles PO 100 mg Q8HR BUTCH Administration Carvedilol 12.5 mg 10/24/18 10:00 10/30/18 09:06 Coreg PO 12.5 mg BID BUTCH Administration Clonidine HCl 0.2 mg 10/24/18 10:00 10/30/18 09:06 Catapres PO 0.2 mg BID BUTCH Administration Dextrose 50 ml 10/24/18 01:24 D50w (25gm) Syringe IV PRN PRN Hypoglycemia Famotidine 10 mg 10/24/18 10:00 10/30/18 09:07 Pepcid PO 10 mg BID BUTCH Administration Gabapentin 100 mg 10/27/18 15:00 10/30/18 05:50 Neurontin PO 100 mg Q12H BUTCH Administration Guaifenesin 10 ml 10/26/18 10:00 Guaifenesin Dm Syrup PO Q4H PRN Cough Heparin Sodium (Porcine) 5,000 unit 10/24/18 10:00 10/30/18 09:08 Heparin SUB-Q 5,000 unit Q12HR BUTCH Administration Cefepime HCl 1 gm in 100 mls @ 200 mls/hr 10/24/18 18:00 10/29/18 19:34 Maxipime/Ns 1 Gm/100 Ml IV 200 mls/hr Q24H BUTCH Administration Sodium Chloride 100 mls @ 999 mls/hr 10/24/18 12:31 Nacl 0.9% IV ALANA PRN Hypotension during HD Vancomycin HCl 1 gm in 250 mls @ 167.007 mls/hr 10/25/18 20:00 10/29/18 22:47 Vancomycin/Ns 1 Gm/250 Ml IV 167.007 mls/hr MoWeFr BUTCH Administration Metronidazole 500 mg in 100 mls @ 100 mls/hr 10/26/18 22:00 10/30/18 05:50 Flagyl 500 Mg/100 Ml IV 100 mls/hr Q8HR BUTCH Administration Protocol Insulin Human Regular 0 units 10/24/18 07:30 10/30/18 07:43 Humulin R SUB-Q Not Given AC BUTCH Protocol Insulin Human Regular 0 units 10/24/18 22:00 10/29/18 21:36 Humulin R SUB-Q 3 units QHS BUTCH Administration Protocol Isosorbide Mononitrate 60 mg 10/24/18 10:00 10/30/18 09:06 Imdur PO 60 mg DAILY BUTCH Administration Lacosamide 50 mg 10/24/18 10:00 10/30/18 09:08 Vimpat PO 50 mg Q12HR BUTCH Administration Levetiracetam 750 mg 10/24/18 10:00 10/30/18 09:06 Keppra PO 750 mg BID BUTCH Administration Lisinopril 40 mg 10/24/18 10:00 10/30/18 09:07 Zestril PO 40 mg DAILY BUTCH Administration Lorazepam 1 mg 10/24/18 01:09 Ativan IV Q2H PRN Seizures Ondansetron HCl 4 mg 10/24/18 01:09 Zofran IV Q8H PRN Nausea And Vomiting Oxycodone/Acetaminophen 1 tab 10/24/18 04:05 10/27/18 18:19 Percocet 5/325 PO 1 tab Q6H PRN Administration Pain, Moderate (4-6) Polyethylene Glycol 17 gm 10/27/18 17:00 10/30/18 09:06 Miralax 3350 PO 17 gm QDAY BUTCH Administration Tizanidine HCl 4 mg 10/24/18 08:00 10/30/18 09:06 Zanaflex PO 4 mg TID BUTCH Administration
--- NOTE | 2018-10-30 13:56 | Progress Note ---
Assessment and Plan 74-year-old woman with history of end-stage renal disease. She presents with seizure-like activity at home. She was shaking and jerking. Brought to the hospital found to have fever and extensive right lung pneumonia -The patient does suffer from dementia, lives at home with her daughter, Plan/Hospital course Continue broad-spectrum antibiotics, follow-up blood cultures, ID consult appreciated, US abdomen neg Continue dialysis per nephrology, continue home medications -seizure likely provoked by fever/sepsis, now resolved -Speech pathology consult appreciated, sp MBS which was normal, on regular diet with think liquids Diagnosis Sepsis Extensive R lung PNA, nosocomial acquired plus aspiration pneumonia, It appears she has chronic aspiration ESRD HTN status epilepticus Subjective Date of service: 10/30/18 Principal diagnosis: fever Interval history: Doing better Objective - Constitutional Vitals: Vital Signs - 12hr 10/30/18 10/30/18 10/30/18 02:56 04:52 08:25 Temperature 99.0 F 99.1 F Pulse Rate 61 72 Respiratory 20 18 Rate Blood Pressure 169/53 171/57 O2 Sat by Pulse 93 91 91 Oximetry 10/30/18 10/30/18 10/30/18 09:06 10:00 11:47 Temperature 98.4 F Pulse Rate 301 H 56 L Respiratory 18 Rate Blood Pressure 130/47 O2 Sat by Pulse 94 89 Oximetry General appearance: Present: no acute distress, well-nourished - EENT Eyes: PERRL, EOM intact ENT: hearing intact, clear oral mucosa Ears: bilateral: normal - Neck Neck: supple, normal ROM - Respiratory Respiratory effort: normal Respiratory: bilateral: CTA - Breasts Breasts: normal - Cardiovascular Heart rate: 78 Rhythm: regular Heart Sounds: Present: S1 & S2. Absent: gallop, rub Extremities: pulses intact, No edema, normal color, Full ROM - Gastrointestinal General gastrointestinal: Present: soft, non-tender, non-distended, normal bowel sounds - Genitourinary Female genitourinary: normal - Integumentary Integumentary: clear, warm, dry - Musculoskeletal Musculoskeletal: 1, strength equal bilaterally - Neurologic Neurologic: moves all extremities - Psychiatric Psychiatric: memory intact, appropriate mood/affect, intact judgment & insight - Labs CBC & Chem 7: 11/01/18 09:27 10/29/18 10:00 Labs: Abnormal lab results 0210/30/18 10/30/18 Range/Units 20:40 06:26 11:52 POC Glucose 265 H 106 H 273 H (70-105)
[2018-10-30] MEDS: MAXIPIME/NS 1 GM/100 ML 1 GM/100 ML BAG IV SCH (18:09)
[2018-10-31] MEDS: NEURONTIN PO SCH ×2 (03:40→15:50)
[2018-10-31] MEDS: FLAGYL 500 MG/100 ML 500 MG/100 ML BAG IV SCH (05:45)
[2018-10-31] MEDS: TESSALON PERLES PO SCH ×3 (05:45→21:40)
[2018-10-31] MEDS: HumuLIN R SUB-Q SCH ×4 (08:28→21:42)
[2018-10-31] MEDS: ZANAFLEX PO SCH ×3 (08:37→21:42)
[2018-10-31] MEDS: KEPPRA PO SCH ×2 (10:05→21:41)
[2018-10-31] MEDS: VIMPAT PO SCH ×2 (10:06→21:41)
--- NOTE | 2018-10-31 10:06 | Progress Note ---
Subjective Principal diagnosis: fever Interval history: Patient was seen today for follow-up on multiple renal related issues Events of this hospitalization noted Still remains bradycardic Patient denies having any chest pain pressure or shortness of breath Vitals labs intake output medications were reviewed Social history: Reviewed Allergies: Reviewed Family history: Reviewed Physical examination HEENT: Oral mucosa moist no pallor or icterus Neck: Supple no JVD Chest: Few basilar crackles CVS: Regular rate and rhythm S1 and S2 heard Abdomen: Soft nontender no suprapubic masses no organomegaly appreciable Extremity: Dry skin less than 1+ peripheral edema Musculoskeletal: No joint effusion noted in knees and ankle Neurological: Alert awake Dermatology: No petechial rashes Psychiatry: No evidence of any agitation and aggression noted Assessment and plan End-stage renal disease: Patient is currently in maintenance hemanalysis on Thursday schedule Anemia in end-stage renal disease: To monitor and follow patient also does have some thrombocytopenia Patient needs ongoing monitoring of CBC Secondary hyperparathyroidism and bone mineral disorder, periodically check phosphorus and PTH level Malnutrition risk high please consider high protein diet for dialysis patient 1.5 g per KG body weight Blood cultures have been negative for last 5 days Hypertension and volume: Patient is relatively bradycardic Will discontinue amlodipine, discontinue clonidine, start low-dose losartan as well as minoxidil Multiple underlying comorbidities including hypertension, diabetes, seizure disorder, hepatitis C and thrombocytopenia patient is currently being treated for pneumonia Patient was adequately counseled and educated regarding multiple renal related issues Pertinent lab findings were discussed with patient, patient does exhibit good understanding of renal issues We'll continue to follow and make recommendation from renal standpoint Objective - Vital Signs Vital signs: Vital Signs - 12hr 10/31/18 02:29 Temperature 99.5 F Pulse Rate 55 L Respiratory 18 Rate Blood Pressure 156/54 O2 Sat by Pulse 95 Oximetry - Lab 10/29/18 10:25 10/29/18 10:00 Most recent lab results Calcium 8.0 mg/dL (8.4-10.2) L 10/29/18 10:00 Medications & Allergies - Medications Allergies/Adverse Reactions: Allergies No Known Allergies Allergy (Unverified 02/02/18 15:43) Home Medications: Home Medications Medication Instructions Recorded Confirmed Last Taken Type Aspirin 81 mg PO DAILY 08/13/18 10/24/18 08/11/18 History Baclofen 10 mg PO TID 08/13/18 10/24/18 08/11/18 History Tizanidine HCl [Zanaflex] 4 mg PO TID 08/13/18 10/24/18 08/11/18 History amLODIPine [Norvasc] 10 mg PO DAILY 08/13/18 10/24/18 08/11/18 History Lacosamide [Vimpat] 50 mg PO Q12HR #60 tablet 08/18/18 10/24/18 Unknown Rx Acetaminophen [Acetaminophen TAB] 650 mg PO Q4H PRN tablet 09/02/18 10/24/18 Unknown Rx Aspirin [Aspirin BABY CHEW TAB] 81 mg PO DAILY tab.chew 09/02/18 10/24/18 Unknown Rx Famotidine [Pepcid] 10 mg PO BID tablet 09/02/18 10/24/18 Unknown Rx Lispro Insulin [Humalog] 0 unit SUB-Q ACHS units 09/02/18 10/24/18 Unknown Rx oxyCODONE /ACETAMINOPHEN [Percocet 1 tab PO Q6H PRN tablet 09/02/18 10/24/18 Unknown Rx 5/325 mg] Carvedilol [Coreg] 12.5 mg PO BID tablet 10/15/18 10/24/18 Unknown Rx Gabapentin [Neurontin] 100 mg PO Q12H #60 capsule 10/15/18 10/24/18 Unknown Rx ISOSORBIDE MONOnitrate [Imdur ER] 60 mg PO DAILY tablet 10/15/18 10/24/18 Unknown Rx Insulin Regular, Human [HumuLIN R] 0 units SUB-Q QHS units 10/15/18 10/24/18 Unknown Rx Lisinopril [Zestril TAB] 40 mg PO DAILY tablet 10/15/18 10/24/18 Unknown Rx cloNIDine [Catapres] 0.2 mg PO BID tablet 10/15/18 10/24/18 Unknown Rx Active Medications: Generic Name Dose Route Start Last Admin Trade Name Freq PRN Reason Stop Dose Admin Acetaminophen 650 mg 10/24/18 01:07 10/25/18 00:02 Tylenol PO 650 mg Q4H PRN Administration Fever >101 Amlodipine Besylate 10 mg 10/24/18 10:00 10/30/18 09:06 Norvasc PO 10 mg DAILY BUTCH Administration Aspirin 81 mg 10/24/18 10:00 10/30/18 09:06 Baby Aspirin PO 81 mg DAILY BUTCH Administration Benzonatate 100 mg 10/26/18 14:00 10/31/18 05:45 Tessalon Perles PO 100 mg Q8HR BUTCH Administration Carvedilol 12.5 mg 10/24/18 10:00 10/30/18 21:38 Coreg PO 12.5 mg BID BUTCH Administration Clonidine HCl 0.2 mg 10/24/18 10:00 10/30/18 21:38 Catapres PO 0.2 mg BID BUTCH Administration Dextrose 50 ml 10/24/18 01:24 D50w (25gm) Syringe IV PRN PRN Hypoglycemia Famotidine 10 mg 10/24/18 10:00 10/30/18 21:38 Pepcid PO 10 mg BID BUTCH Administration Gabapentin 100 mg 10/27/18 15:00 10/31/18 03:40 Neurontin PO 100 mg Q12H BUTCH Administration Guaifenesin 10 ml 10/26/18 10:00 Guaifenesin Dm Syrup PO Q4H PRN Cough Heparin Sodium (Porcine) 5,000 unit 10/24/18 10:00 10/30/18 21:38 Heparin SUB-Q 5,000 unit Q12HR BUTCH Administration Sodium Chloride 100 mls @ 999 mls/hr 10/24/18 12:31 Nacl 0.9% IV ALANA PRN Hypotension during HD Insulin Human Regular 0 units 10/24/18 07:30 10/31/18 08:28 Humulin R SUB-Q 1 units AC BUTCH Administration Protocol Insulin Human Regular 0 units 10/24/18 22:00 10/30/18 21:39 Humulin R SUB-Q 2 units QHS BUTCH Administration Protocol Isosorbide Mononitrate 60 mg 10/24/18 10:00 10/30/18 09:06 Imdur PO 60 mg DAILY BUTCH Administration Lacosamide 50 mg 10/24/18 10:00 10/30/18 21:38 Vimpat PO 50 mg Q12HR BUTCH Administration Levetiracetam 750 mg 10/24/18 10:00 10/30/18 21:37 Keppra PO 750 mg BID BUTCH Administration Lisinopril 40 mg 10/24/18 10:00 10/30/18 09:07 Zestril PO 40 mg DAILY BUTCH Administration Lorazepam 1 mg 10/24/18 01:09 Ativan IV Q2H PRN Seizures Ondansetron HCl 4 mg 10/24/18 01:09 Zofran IV Q8H PRN Nausea And Vomiting Oxycodone/Acetaminophen 1 tab 10/24/18 04:05 10/27/18 18:19 Percocet 5/325 PO 1 tab Q6H PRN Administration Pain, Moderate (4-6) Polyethylene Glycol 17 gm 10/27/18 17:00 10/30/18 09:06 Miralax 3350 PO 17 gm QDAY BUTCH Administration Tizanidine HCl 4 mg 10/24/18 08:00 10/31/18 08:37 Zanaflex PO 4 mg TID BUTCH Administration
[2018-10-31] MEDS: MIRALAX 3350 PO SCH (10:07)
[2018-10-31] MEDS: PEPCID PO SCH ×2 (10:07→21:40)
[2018-10-31] MEDS ORDERED: CATAPRES PO SCH (10:07)
[2018-10-31] MEDS: COREG PO SCH ×2 (10:10→21:41)
[2018-10-31] MEDS: IMDUR PO SCH (10:10)
[2018-10-31] MEDS: BABY ASPIRIN PO SCH (10:10)
[2018-10-31] MEDS: HEPARIN SUB-Q SCH ×2 (10:11→21:41)
--- NOTE | 2018-10-31 16:45 | Progress Note ---
Assessment and Plan 74-year-old woman with history of end-stage renal disease. She presents with seizure-like activity at home. She was shaking and jerking. Brought to the hospital found to have fever and extensive right lung pneumonia -The patient does suffer from dementia, lives at home with her daughter, Plan/Hospital course Continue broad-spectrum antibiotics, follow-up blood cultures, ID consult appreciated, US abdomen neg Continue dialysis per nephrology, continue home medications -seizure likely provoked by fever/sepsis, now resolved -Speech pathology consult appreciated, sp MBS which was normal, on regular diet with think liquids Diagnosis Sepsis Extensive R lung PNA, nosocomial acquired plus aspiration pneumonia, It appears she has chronic aspiration ESRD HTN status epilepticus Subjective Date of service: 10/31/18 Principal diagnosis: fever Interval history: Doing better Objective - Constitutional Vitals: Vital Signs - 12hr 10/31/18 10/31/18 10/31/18 07:42 10:00 10:10 Temperature 99.3 F Pulse Rate 59 L 59 L Respiratory 18 20 Rate Blood Pressure 153/53 153/53 O2 Sat by Pulse 87 Oximetry 10/31/18 14:21 Temperature 98.5 F Pulse Rate 55 L Respiratory 18 Rate Blood Pressure 141/50 O2 Sat by Pulse 93 Oximetry General appearance: Present: no acute distress, well-nourished - EENT Eyes: PERRL, EOM intact ENT: hearing intact, clear oral mucosa Ears: bilateral: normal - Neck Neck: supple, normal ROM - Respiratory Respiratory effort: normal Respiratory: bilateral: CTA - Breasts Breasts: normal - Cardiovascular Rhythm: regular Heart Sounds: Present: S1 & S2. Absent: gallop, rub Extremities: pulses intact, No edema, normal color, Full ROM - Gastrointestinal General gastrointestinal: Present: soft, non-tender, non-distended, normal bowel sounds - Genitourinary Female genitourinary: normal - Integumentary Integumentary: clear, warm, dry - Musculoskeletal Musculoskeletal: 1, strength equal bilaterally - Neurologic Neurologic: moves all extremities - Psychiatric Psychiatric: memory intact, appropriate mood/affect, intact judgment & insight - Labs CBC & Chem 7: 11/01/18 09:27 10/29/18 10:00 Labs: Abnormal lab results 10/30/18 10/31/18 10/31/18 Range/Units 21:16 07:46 11:41 POC Glucose 247 H 157 H 313 H (70-105)
[2018-10-31] MEDS: LONITEN PO SCH (21:40)
[2018-11-01] MEDS: NORVASC PO SCH (00:59)
[2018-11-01] MEDS: CATAPRES PO SCH (00:59)
[2018-11-01] MEDS: ZESTRIL PO SCH (01:00)
[2018-11-01] MEDS: TESSALON PERLES PO SCH ×2 (05:33→14:40)
[2018-11-01] MEDS: NEURONTIN PO SCH ×2 (05:33→19:02)
--- NOTE | 2018-11-01 08:11 | Progress Note ---
Assessment and Plan ultures: 10/23/18 Blood: no growth to date 10/24/17 Sputum: contaminated A/P: 78-year-old patient with a history of insulin-dependent diabetes, hypertension, coronary artery disease, CHF, end-stage renal disease on hemodialysis.. Now admitted with: 1. New Fevers: Resolved, etiology likely right lung pneumonia. No leukocytosis, blood cultures no growth thus far. Sputum cultures is contaminated. CRP 10.10 2. Multifocal Pneumonia: likely aspiration vs. HCAP (patient goes to HD). Chest CT shows extensive pneumonia primarily in the right middle and right lower lobe with additional patchy infiltrates in the right upper lobe and left upper lobe. Completed antibiotic treatment, 3. Seizure activity: continue to monitor 4. ESRD on Hemodialysis: Nephrology following 5. Type 2 Diabetes: uncontrolled 6. CAD 7. HCV serology positive Plan: -Completed antibiotic therapy -Monitor off antibiotics ID is signing off [facility] M: [id number] O:[phone] Subjective Date of service: 11/01/18 Principal diagnosis: fever Interval history: Patient seen and examined in HD. Stated that she was feeling better today and ready to be discharged home. Nurses notes, labs and reports reviewed, discussed with patient. Objective - Exam Narrative Exam: Constitutional: Alert, cooperative. generalized weakness. No acute distress Head, Ears, Nose: Normocephalic, atraumatic. External ears, nose normal Eyes: Conjunctivae/corneas clear. No icterus. No ptosis. Neck: Supple, no meningeal signs Oral: dentition poor, no thrush Cardiovascular: S1, S2 normal. Respiratory: bilateral rhonci throughout GI: Soft, non-tender; bowel sounds normal. No peritoneal signs Musculoskeletal: No pedal edema, no cyanosis. Skin: + bilateral heel ulcers- dry, healed,, wrapped Hem/Lymphatic: No palpable cervical or supraclavicular nodes. No lymphangitis Psych: Mood ok. Affect normal Neurological: Awake, alert, oriented. - Constitutional Vitals: Vital Signs Temp Pulse Resp BP Pulse Ox 98.2 F 65 20 170/57 88 11/01/18 07:24 11/01/18 07:24 11/01/18 07:24 11/01/18 07:24 11/01/18 07:24 Temperature -Last 24 Hours Temperature 98.2 F Temperature 98.4 F Temperature 99.5 F Temperature 98.5 F - Labs CBC & Chem 7: 11/01/18 09:27 10/29/18 10:00 Labs: Abnormal lab results 10/31/18 10/31/18 11/01/18 Range/Units 11:41 16:33 07:21 POC Glucose 313 H 261 H 160 H (70-105)
[2018-11-01] MEDS: HumuLIN R SUB-Q SCH ×3 (09:16→19:02)
[2018-11-01] MEDS: KEPPRA PO SCH (09:19)
[2018-11-01] MEDS: VIMPAT PO SCH (09:19)
[2018-11-01] MEDS: ZANAFLEX PO SCH ×2 (09:20→14:40)
[2018-11-01] MEDS: PEPCID PO SCH (09:20)
[2018-11-01] MEDS: MIRALAX 3350 PO SCH (09:21)
[2018-11-01] MEDS: IMDUR PO SCH (09:22)
--- NOTE | 2018-11-01 09:22 | Progress Note ---
Subjective Principal diagnosis: fever Interval history: Patient was seen today for follow-up on multiple renal related issues Events of this hospitalization noted Resting comfortably in bed Blood pressure is relatively stable Patient denies having any chest pain pressure or shortness of breath Vitals labs intake output medications were reviewed Social history: Reviewed Allergies: Reviewed Family history: Reviewed Physical examination HEENT: Oral mucosa moist no pallor or icterus Neck: Supple no JVD Chest: Few basilar crackles CVS: Regular rate and rhythm S1 and S2 heard Abdomen: Soft nontender no suprapubic masses no organomegaly appreciable Extremity: Dry skin less than 1+ peripheral edema Musculoskeletal: No joint effusion noted in knees and ankle Neurological: Alert awake Dermatology: No petechial rashes Psychiatry: No evidence of any agitation and aggression noted Assessment and plan End-stage renal disease: Patient is currently in maintenance hemanalysis on Thursday schedule I will change her dialysis prescription ultrafiltration as tolerated Pancytopenia-like picture: Patient will benefit from hematology evaluation, being on dialysis I would like to order for heparin-induced thrombocytopenia panel Patient does have history of chronic thrombocytopenia and platelet count has been as low as 58,000 in July 2018 Patient needs to be on erythropoietin periodically Will give her 20,000 unit today, Secondary hyperparathyroidism and bone mineral disorder, periodically check phosphorus and PTH level Malnutrition risk high please consider high protein diet for dialysis patient 1.5 g per KG body weight Blood cultures have been negative for last 5 days Hypertension and volume: Continue to monitor ultrafiltrate as tolerated Multiple underlying comorbidities including hypertension, diabetes, seizure disorder, hepatitis C and thrombocytopenia patient is currently being treated for pneumonia Patient was adequately counseled and educated regarding multiple renal related issues We'll continue to follow and make recommendation from renal standpoint Objective - Vital Signs Vital signs: Vital Signs - 12hr 10/31/18 10/31/18 11/01/18 21:41 22:00 02:46 Temperature Pulse Rate 56 L 56 L Pulse Rate [ 56 L Apical] Respiratory 18 Rate Blood Pressure 152/52 157/54 Blood Pressure [Right] O2 Sat by Pulse Oximetry 11/01/18 11/01/18 02:49 07:24 Temperature 98.4 F 98.2 F Pulse Rate 62 65 Pulse Rate [ Apical] Respiratory 18 20 Rate Blood Pressure 170/57 Blood Pressure 157/54 [Right] O2 Sat by Pulse 96 88 Oximetry - Lab 10/29/18 10:25 10/29/18 10:00 Most recent lab results Calcium 8.0 mg/dL (8.4-10.2) L 10/29/18 10:00 Medications & Allergies - Medications Allergies/Adverse Reactions: Allergies No Known Allergies Allergy (Unverified 02/02/18 15:43) Home Medications: Home Medications Medication Instructions Recorded Confirmed Last Taken Type Aspirin 81 mg PO DAILY 08/13/18 10/24/18 08/11/18 History Baclofen 10 mg PO TID 08/13/18 10/24/18 08/11/18 History Tizanidine HCl [Zanaflex] 4 mg PO TID 08/13/18 10/24/18 08/11/18 History amLODIPine [Norvasc] 10 mg PO DAILY 08/13/18 10/24/18 08/11/18 History Lacosamide [Vimpat] 50 mg PO Q12HR #60 tablet 08/18/18 10/24/18 Unknown Rx Acetaminophen [Acetaminophen TAB] 650 mg PO Q4H PRN tablet 09/02/18 10/24/18 Unknown Rx Aspirin [Aspirin BABY CHEW TAB] 81 mg PO DAILY tab.chew 09/02/18 10/24/18 Unknown Rx Famotidine [Pepcid] 10 mg PO BID tablet 09/02/18 10/24/18 Unknown Rx Lispro Insulin [Humalog] 0 unit SUB-Q ACHS units 09/02/18 10/24/18 Unknown Rx oxyCODONE /ACETAMINOPHEN [Percocet 1 tab PO Q6H PRN tablet 09/02/18 10/24/18 Unknown Rx 5/325 mg] Carvedilol [Coreg] 12.5 mg PO BID tablet 10/15/18 10/24/18 Unknown Rx Gabapentin [Neurontin] 100 mg PO Q12H #60 capsule 10/15/18 10/24/18 Unknown Rx ISOSORBIDE MONOnitrate [Imdur ER] 60 mg PO DAILY tablet 10/15/18 10/24/18 Unkn own Rx Insulin Regular, Human [HumuLIN R] 0 units SUB-Q QHS units 10/15/18 10/24/18 Unknown Rx Lisinopril [Zestril TAB] 40 mg PO DAILY tablet 10/15/18 10/24/18 Unknown Rx cloNIDine [Catapres] 0.2 mg PO BID tablet 10/15/18 10/24/18 Unknown Rx Active Medications: Generic Name Dose Route Start Last Admin Trade Name Freq PRN Reason Stop Dose Admin Acetaminophen 650 mg 10/24/18 01:07 10/25/18 00:02 Tylenol PO 650 mg Q4H PRN Administration Fever >101 Aspirin 81 mg 10/24/18 10:00 10/31/18 10:10 Baby Aspirin PO 81 mg DAILY BUTCH Administration Benzonatate 100 mg 10/26/18 14:00 11/01/18 05:33 Tessalon Perles PO 100 mg Q8HR BUTCH Administration Carvedilol 12.5 mg 10/24/18 10:00 10/31/18 21:41 Coreg PO 12.5 mg BID BUTCH Administration Dextrose 50 ml 10/24/18 01:24 D50w (25gm) Syringe IV PRN PRN Hypoglycemia Famotidine 10 mg 10/24/18 10:00 10/31/18 21:40 Pepcid PO 10 mg BID BUTCH Administration Gabapentin 100 mg 10/27/18 15:00 11/01/18 05:33 Neurontin PO 100 mg Q12H BUTCH Administration Guaifenesin 10 ml 10/26/18 10:00 Guaifenesin Dm Syrup PO Q4H PRN Cough Heparin Sodium (Porcine) 5,000 unit 10/24/18 10:00 10/31/18 21:41 Heparin SUB-Q 5,000 unit Q12HR BUTCH Administration Sodium Chloride 100 mls @ 999 mls/hr 10/24/18 12:31 Nacl 0.9% IV ALANA PRN Hypotension during HD Insulin Human Regular 0 units 10/24/18 07:30 11/01/18 09:16 Humulin R SUB-Q 1 units AC BUTCH Administration Protocol Insulin Human Regular 0 units 10/24/18 22:00 10/31/18 21:42 Humulin R SUB-Q Not Given QHS [facility] Protocol Isosorbide Mononitrate 60 mg 10/24/18 10:00 10/31/18 10:10 Imdur PO 60 mg DAILY BUTCH Administration Lacosamide 50 mg 10/24/18 10:00 11/01/18 09:19 Vimpat PO 50 mg Q12HR BUTCH Administration Levetiracetam 750 mg 10/24/18 10:00 11/01/18 09:19 Keppra PO 750 mg BID BUTCH Administration Lorazepam 1 mg 10/24/18 01:09 Ativan IV Q2H PRN Seizures Losartan Potassium 50 mg 11/01/18 10:00 Cozaar PO QDAY BUTCH Minoxidil 2.5 mg 10/31/18 22:00 10/31/18 21:40 Loniten PO 2.5 mg BID BUTCH Administration Ondansetron HCl 4 mg 10/24/18 01:09 Zofran IV Q8H PRN Nausea And Vomiting Oxycodone/Acetaminophen 1 tab 10/24/18 04:05 10/27/18 18:19 Percocet 5/325 PO 1 tab Q6H PRN Administration Pain, Moderate (4-6) Polyethylene Glycol 17 gm 10/27/18 17:00 10/31/18 10:07 Miralax 3350 PO 17 gm QDAY BUCTH Administration Tizanidine HCl 4 mg 10/24/18 08:00 10/31/18 21:42 Zanaflex PO 4 mg TID BUTCH Administration
[2018-11-01] MEDS: LONITEN PO SCH (09:23)
[2018-11-01] MEDS: HEPARIN SUB-Q SCH (09:23)
[2018-11-01] MEDS: BABY ASPIRIN PO SCH (09:23)
[2018-11-01] MEDS: COREG PO SCH (09:23)
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
[2018-11-01 09:38] LABS: Basophils % (Auto) 0.8 % (0.0-1.8); Eosinophils # (Auto) 0.2 K/mm3 (0.0-0.4); Eosinophils % (Auto) 4.4 % (0.0-4.3); Hematocrit 35.1 % (30.3-42.9); Lymphocytes # (Auto) 1.1 K/mm3 (1.2-5.4); Lymphocytes % (Auto) 22.2 % (13.4-35.0); Mean Corpuscular HGB Conc 31 % (30-34); Mean Corpuscular Volume 91 fl (79-97); Monocytes # (Auto) 0.5 K/mm3 (0.0-0.8); Monocytes % (Auto) 10.8 % (0.0-7.3); Platelet Count 165 K/mm3 (140-440); Red Blood Count 3.87 M/mm3 (3.65-5.03); Red Cell Distribution Width 16.9 % (13.2-15.2)
[2018-11-01] MEDS ORDERED: COZAAR PO SCH (10:00)
[2018-11-01 16:18] VITALS: BP 140/60
[2018-11-01] MEDS ORDERED: NACL 0.9 (PRIMING MACHINE ONLY DIALYSIS) MC ONE (16:31)
== END 2018-11-01 20:15 | disposition home health service (06) | DRG 871 ==
LOC: ED 19:59 → 4A 10-24 01:01 → 2B-ACE 10-30 16:23
PROVIDERS: ADMIT Internal Medicine; ATTEND Internal Medicine
PROC: 5A1D70Z Performance of Urinary Filtration, Intermittent, Less than 6 Hours Per Day (ICD-10-PCS; principal; 2018-10-25)
PROC: 5A1D70Z Performance of Urinary Filtration, Intermittent, Less than 6 Hours Per Day (ICD-10-PCS; 2018-10-27)
PROC: 5A1D70Z Performance of Urinary Filtration, Intermittent, Less than 6 Hours Per Day (ICD-10-PCS; 2018-10-29)
PROC: 5A1D70Z Performance of Urinary Filtration, Intermittent, Less than 6 Hours Per Day (ICD-10-PCS; 2018-11-01)
DX: A41.9 Sepsis, unspecified organism (principal); N18.6 End stage renal disease; J69.0 Pneumonitis due to inhalation of food and vomit; I13.2 Hypertensive heart and chronic kidney disease with heart failure and with stage 5 chronic kidney disease, or end stage renal disease; N25.81 Secondary hyperparathyroidism of renal origin; D61.818 Other pancytopenia; E11.22 Type 2 diabetes mellitus with diabetic chronic kidney disease; I50.9 Heart failure, unspecified; I25.10 Atherosclerotic heart disease of native coronary artery without angina pectoris; G40.901 Epilepsy, unspecified, not intractable, with status epilepticus; B19.20 Unspecified viral hepatitis C without hepatic coma; D63.1 Anemia in chronic kidney disease; M89.9 Disorder of bone, unspecified; Z99.2 Dependence on renal dialysis; Z79.4 Long term (current) use of insulin; Z79.82 Long term (current) use of aspirin
CPT/HCPCS: 36415; 70450; 71045; 71250; 74230; 76705; 80048; 80053; 80074; 80202; 80320; 82550; 82962; 83880; 84443; 85007; 85025; 86140; 87040; 87205; 93005; 93010; 94640; 94760; G0378; G0480; J0456; J0692; J0696; J1644; J1815; J1953; J1956; J3370; J7030; J7050

== ENCOUNTER 2019-08-12 15:42 | Inpatient (IN) | payer MEDICARE ==
[2019-08-12] MEDS ORDERED: levETIRAcetam 500 MG in DEXTROSE 5% IN WATER 100 ML IV ONE (16:37)
--- NOTE | 2019-08-12 16:37 | Emergency Department Report ---
ED General Adult HPI - General Chief complaint: Altered Mental Status Stated complaint: ALTERED MENTAL STATUS Time Seen by Provider: 08/12/19 16:28 Source: EMS ( EMS documentation not available at time of chart dictation ) Mode of arrival: Stretcher Limitations: Altered Mental Status, Physical Limitation - History of Present Illness Initial comments: Nephrology: Question Dr. Hess Past medical history: Hypertension, end-stage renal disease on hemodialysis, seizures, heart disease, hepatitis C, question dementia The patient is an 79-year-old female whom I have evaluated in the past. She is brought to the hospital today for reported seizures and altered mental status. Initially when I examined the patient, she is awake, but confused not following commands. She has periods where she will close her eyes, and then open them. As per verbal report from nurse, apparently, family contacted 911 because the patient had seizures. It is unknown how many convulsive episodes the patient had today. As per verbal report from nursing team, there is no history of trauma. We do not know with the seizures looked like, how long they lasted for, and if the patient has taken any of her seizure medication. Apparently, the patient walked out to EMS without significant difficulty, as per verbal report from nursing team. In the emergency room currently, the patient is awake, smiling, following commands, does not endorse any physical pain, and is not able to describe exacerbating or relieving factors. At the moment, family is not available for collateral information. -: This morning Severity scale (0 -10): 0 Quality: other Consistency: other Improves with: other Worsens with: other Associated Symptoms: other - Related Data Home Medications Medication Instructions Recorded Confirmed Last Taken Aspirin 81 mg PO DAILY 08/13/18 10/24/18 08/11/18 Baclofen 10 mg PO TID 08/13/18 10/24/18 08/11/18 Tizanidine HCl [Zanaflex 4mg CAP] 4 mg PO TID 08/13/18 10/24/18 08/11/18 amLODIPine 10 mg PO DAILY 08/13/18 10/24/18 08/11/18 Previous Rx's Medication Instructions Recorded Last Taken Type Lacosamide [Vimpat] 50 mg PO Q12HR #60 tablet 08/18/18 Unknown Rx Acetaminophen [Acetaminophen TAB] 650 mg PO Q4H PRN tablet 09/02/18 Unknown Rx Aspirin [Aspirin BABY CHEW TAB] 81 mg PO DAILY tab.chew 09/02/18 Unknown Rx Famotidine [Pepcid] 10 mg PO BID tablet 09/02/18 Unknown Rx Lispro Insulin [HumaLOG] 0 unit SUB-Q ACHS units 09/02/18 Unknown Rx Gabapentin 100 mg PO Q12H #60 capsule 10/15/18 Unknown Rx ISOSORBIDE MONOnitrate [Imdur ER] 60 mg PO DAILY tablet 10/15/18 Unknown Rx Insulin Regular, Human [HumuLIN R] 0 units SUB-Q QHS units 10/15/18 Unknown Rx Lisinopril [Zestril TAB] 40 mg PO DAILY tablet 10/15/18 Unknown Rx carvediloL [Coreg] 12.5 mg PO BID tablet 10/15/18 Unknown Rx cloNIDine [Catapres] 0.2 mg PO BID tablet 10/15/18 Unknown Rx Losartan [Cozaar] 50 mg PO QDAY #30 tablet 11/01/18 Unknown Rx levETIRAcetam [Keppra TAB] 750 mg PO BID #60 tablet 11/01/18 Unknown Rx oxyCODONE /ACETAMINOPHEN [Percocet 1 tab PO Q6H PRN #12 tablet 11/01/18 Unknown Rx 5/325 mg] Allergies Allergy/AdvReac Type Severity Reaction Status Date / Time No Known Allergies Allergy Unverified 02/02/18 15:43 ED Review of Systems ROS: Stated complaint: ALTERED MENTAL STATUS Other details as noted in HPI Comment: Unobtainable due to pts medical conditions ED Past Medical Hx - Past Medical History Hx Hypertension: Yes Hx Congestive Heart Failure: Yes Hx Diabetes: Yes Hx Renal Disease: Yes (esrd on dialysis) Hx HIV: No Additional medical history: ESRD, Dialysis - Surgical History Additional Surgical History: Graft PA - Social History Smoking Status: Never Smoker - Medications Home Medications: Home Medications Medication Instructions Recorded Confirmed Last Taken Type Aspirin 81 mg PO DAILY 08/13/18 10/24/18 08/11/18 History Baclofen 10 mg PO TID 08/13/18 10/24/18 08/11/18 History Tizanidine HCl [Zanaflex 4mg CAP] 4 mg PO TID 08/13/18 10/24/18 08/11/18 History amLODIPine 10 mg PO DAILY 08/13/18 10/24/18 08/11/18 History Lacosamide [Vimpat] 50 mg PO Q12HR #60 tablet 08/18/18 10/24/18 Unknown Rx Acetaminophen [Acetaminophen TAB] 650 mg PO Q4H PRN tablet 09/02/18 10/24/18 Unknown Rx Aspirin [Aspirin BABY CHEW TAB] 81 mg PO DAILY tab.chew 09/02/18 10/24/18 Unknown Rx Famotidine [Pepcid] 10 mg PO BID tablet 09/02/18 10/24/18 Unknown Rx Lispro Insulin [HumaLOG] 0 unit SUB-Q ACHS units 09/02/18 10/24/18 Unknown Rx Gabapentin 100 mg PO Q12H #60 capsule 10/15/18 10/24/18 Unknown Rx ISOSORBIDE MONOnitrate [Imdur ER] 60 mg PO DAILY tablet 10/15/18 10/24/18 Unknown Rx Insulin Regular, Human [HumuLIN R] 0 units SUB-Q QHS units 10/15/18 10/24/18 Unknown Rx Lisinopril [Zestril TAB] 40 mg PO DAILY tablet 10/15/18 10/24/18 Unknown Rx carvediloL [Coreg] 12.5 mg PO BID tablet 10/15/18 10/24/18 Unknown Rx cloNIDine [Catapres] 0.2 mg PO BID tablet 10/15/18 10/24/18 Unknown Rx Losartan [Cozaar] 50 mg PO QDAY #30 tablet 11/01/18 Unknown Rx levETIRAcetam [Keppra TAB] 750 mg PO BID #60 tablet 11/01/18 Unknown Rx oxyCODONE /ACETAMINOPHEN [Percocet 1 tab PO Q6H PRN #12 tablet 11/01/18 Unknown Rx 5/325 mg] ED Physical Exam - General Limitations: Altered Mental Status, Physical Limitation General appearance: alert, other (patient initially listless, responsive to painful stimuli, now awake, smiling, in no acute distress, following commands) - Head Head exam: Present: atraumatic, normocephalic - Eye Eye exam: Present: normal appearance, PERRL - ENT ENT exam: Present: normal orophraynx, mucous membranes moist, normal external ear exam - Neck Neck exam: Present: normal inspection, full ROM. Absent: tenderness, meningismus - Respiratory Respiratory exam: Present: wheezes, rales, rhonchi, stridor, decreased breath sounds. Absent: respiratory distress - Cardiovascular Cardiovascular Exam: Present: normal rhythm, bradycardia, systolic murmur, JVD. Absent: irregular rhythm, diastolic murmur, rubs, gallop - GI/Abdominal GI/Abdominal exam: Present: soft. Absent: distended, tenderness, guarding, rebound, rigid, pulsatile mass - Extremities Exam Extremities exam: Present: normal inspection (patient withdraws 4 extremities to painful stimuli. 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 There is no long bone tenderness. Musculoskeletal compartments are soft. The pelvis is stable.). Absent: calf tenderness - Back Exam Back exam: Present: normal inspection. Absent: tenderness, CVA tenderness (R), CVA tenderness (L), paraspinal tenderness, vertebral tenderness - Neurological Exam Neurological exam: Present: altered, other (there is no facial droop. The patient follows commands. Withdraws 4 extremities to painful stimuli. Detailed neurologic examination not possible secondary to altered mental status advanced age, question postictal state) - Skin Skin exam: Present: warm, dry, intact, normal color. Absent: rash ED Course Vital Signs 08/12/19 08/12/19 08/12/19 15:58 16:00 16:12 Temperature 97.0 F L Pulse Rate 56 L 57 L 53 L Respiratory 8 L 9 L 16 Rate Blood Pressure 144/47 Blood Pressure [Left] O2 Sat by Pulse 99 98 91 Oximetry 08/12/19 08/12/19 08/12/19 16:16 16:21 16:30 Temperature 97.0 F L Pulse Rate 54 L 53 L 53 L Respiratory 9 L 16 9 L Rate Blood Pressure 181/55 144/47 Blood Pressure 144/47 [Left] O2 Sat by Pulse 93 91 92 Oximetry 08/12/19 08/12/19 08/12/19 16:48 17:00 17:16 Temperature Pulse Rate 53 L 54 L 56 L Respiratory 10 L 8 L 10 L Rate Blood Pressure 132/45 132/45 142/49 Blood Pressure [Left] O2 Sat by Pulse 100 100 100 Oximetry 08/12/19 08/12/19 08/12/19 17:19 17:30 17:46 Temperature 96.6 F L Pulse Rate 55 L 52 L Respiratory 8 L 11 L Rate Blood Pressure 142/49 198/65 Blood Pressure [Left] O2 Sat by Pulse 100 100 Oximetry 08/12/19 08/12/19 08/12/19 18:00 18:16 18:30 Temperature Pulse Rate 52 L 58 L 53 L Respiratory Rate Blood Pressure 198/65 129/65 129/65 Blood Pressure [Left] O2 Sat by Pulse 99 100 100 Oximetry 08/12/19 08/12/19 08/12/19 18:51 19:00 19:05 Temperature Pulse Rate 54 L 53 L 57 L Respiratory 8 L Rate Blood Pressure 198/65 195/74 195/74 Blood Pressure [Left] O2 Sat by Pulse 98 100 Oximetry 08/12/19 08/12/19 08/12/19 19:16 19:42 19:46 Temperature Pulse Rate 60 52 L Respiratory Rate Blood Pressure 197/66 195/74 155/46 Blood Pressure [Left] O2 Sat by Pulse 100 100 99 Oximetry - Reevaluation(s) Reevaluation #1: 08/12/19 18:45 Differential diagnosis, including not limited to: Seizure, intracranial hemorrh age, post ictal state, confusion, dementia, pneumonia, azotemia, uremia, press syndrome Assessment and plan: 79-year-old female with report of seizures, confusion, hypertension, last known well time is not known, therefore, she is not a TPA candidate. She is quite hypertensive, CT scan brain was ordered Keppra was ordered, screening laboratory studies are reviewed and appreciated. 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 Elevated troponin is reviewed and appreciated, this is likely a type II troponin leak, likely secondary to chronic renal insufficiency, and report of convulsive event. X-ray the chest, urinalysis not consistent with acute infectious etiology. Plan to admit patient for hypertensive urgency, altered mental status, and further evaluation once initial data points have resulted. Reevaluation #2: 08/12/19 21:25 Discussed with Hospital physician, Dr. Calero, who will accept the patient to the medical service. - Consultations Consultation #1: 08/12/19 18:53 d/w Dr Lozano who will follow in consultation - EJ/Peripheral Line Neck R Time Out Performed: Yes Indications: nurses unable to establis Skin Cleansed in Sterile Fashion: Yes Size: 20 Dressing Placed: Tegaderm Patient Tolerated Procedure: well ED Medical Decision Making - Lab Data Result diagrams: 08/12/19 17:14 08/12/19 17:14 Vital Signs 08/12/19 08/12/19 08/12/19 16:12 16:21 17:19 Temperature 97.0 F L 97.0 F L 96.6 F L Pulse Rate 53 L 53 L Respiratory 16 16 Rate Blood Pressure 144/47 Blood Pressure 144/47 [Left] O2 Sat by Pulse 91 91 Oximetry Lab Results 08/12/19 08/12/19 08/12/19 Range/Units 16:46 17:00 17:14 WBC 6.0 (4.5-11.0) K/mm3 RBC 3.93 (3.65-5.03) M/mm3 Hgb 11.3 (10.1-14.3) gm/dl Hct 35.8 (30.3-42.9) % MCV 91 (79-97) fl MCH 29 (28-32) pg MCHC 32 (30-34) % RDW 16.9 H (13.2-15.2) % Plt Count 86 L (140-440) K/mm3 Lymph % (Auto) 12.8 L (13.4-35.0) % Murray % (Auto) 12.1 H (0.0-7.3) % Eos % (Auto) 1.1 (0.0-4.3) % Baso % (Auto) 0.9 (0.0-1.8) % Lymph # 0.8 L (1.2-5.4) K/mm3 Murray # 0.7 (0.0-0.8) K/mm3 Eos # 0.1 (0.0-0.4) K/mm3 Baso # 0.1 (0.0-0.1) K/mm3 Seg Neutrophils % 73.1 H (40.0-70.0) % Seg Neutrophils # 4.4 (1.8-7.7) K/mm3 PT (12.2-14.9) Sec. INR (0.87-1.13) APTT (24.2-36.6) Sec. Sodium (137-145) mmol/L Potassium (3.6-5.0) mmol/L Chloride (98-107) mmol/L Carbon Dioxide (22-30) mmol/L Anion Gap mmol/L BUN (7-17) mg/dL Creatinine (0.7-1.2) mg/dL Estimated GFR ml/min BUN/Creatinine Ratio % Glucose (65-100) mg/dL POC Glucose 137 H (70-105) Lactic Acid (0.7-2.0) mmol/L Calcium (8.4-10.2) mg/dL Total Bilirubin (0.1-1.2) mg/dL AST (5-40) units/L ALT (7-56) units/L Alkaline Phosphatase (35-129) units/L Ammonia (25-60) umol/L Troponin T (0.00-0.029) ng/mL Total Protein (6.3-8.2) g/dL Albumin (3.9-5) g/dL Albumin/Globulin Ratio % Triglycerides (2-149) mg/dL Cholesterol (50-199) mg/dL LDL Cholesterol Direct (50-130) mg/dL HDL Cholesterol (40-59) mg/dL Cholesterol/HDL Ratio % TSH (0.270-4.200) mlU/mL Urine Color (Yellow) Urine Turbidity (Clear) Urine pH (5.0-7.0) Ur Specific [place] (1.003-1.030) Urine Protein (Negative) mg/dL Urine Glucose (UA) (Negative) mg/dL Urine Ketones (Negative) mg/dL Urine Blood (Negative) Urine Nitrite (Negative) Urine Bilirubin (Negative) Urine Urobilinogen (<2.0) mg/dL Ur Leukocyte Esterase (Negative) Urine WBC (Auto) (0.0-6.0) /HPF Urine RBC (Auto) (0.0-6.0) /HPF U Epithel Cells (Auto) (0-13.0) /HPF Urine Bacteria (Auto) (Negative) /HPF Salicylates (2.8-20.0) mg/dL Urine Opiates Screen Urine Methadone Screen Acetaminophen (10.0-30.0) ug/mL Ur Barbiturates Screen Ur Phencyclidine Scrn Ur Amphetamines Screen U Benzodiazepines Scrn Urine Cocaine Screen U Marijuana (THC) Screen Drugs of Abuse Note Plasma/Serum Alcohol (0-0.07) % Blood Type A POSITIVE Antibody Screen Negative 08/12/19 08/12/19 08/12/19 Range/Units 17:14 17:14 17:14 WBC (4.5-11.0) K/mm3 RBC (3.65-5.03) M/mm3 Hgb (10.1-14.3) gm/dl Hct (30.3-42.9) % MCV (79-97) fl MCH (28-32) pg MCHC (30-34) % RDW (13.2-15.2) % Plt Count (140-440) K/mm3 Lymph % (Auto) (13.4-35.0) % Murray % (Auto) (0.0-7.3) % Eos % (Auto) (0.0-4.3) % Baso % (Auto) (0.0-1.8) % Lymph # (1.2-5.4) K/mm3 Murray # (0.0-0.8) K/mm3 Eos # (0.0-0.4) K/mm3 Baso # (0.0-0.1) K/mm3 Seg Neutrophils % (40.0-70.0) % Seg Neutrophils # (1.8-7.7) K/mm3 PT 12.3 (12.2-14.9) Sec. INR 0.92 (0.87-1.13) APTT 30.3 (24.2-36.6) Sec. Sodium 137 (137-145) mmol/L Potassium 5.3 H (3.6-5.0) mmol/L Chloride 99.7 (98-107) mmol/L Carbon Dioxide 22 (22-30) mmol/L Anion Gap 21 mmol/L BUN 35 H (7-17) mg/dL Creatinine 5.1 H (0.7-1.2) mg/dL Estimated GFR 10 ml/min BUN/Creatinine Ratio 7 % Glucose 126 H (65-100) mg/dL POC Glucose (70-105) Lactic Acid 1.20 (0.7-2.0) mmol/L Calcium 9.3 (8.4-10.2) mg/dL Total Bilirubin 0.60 (0.1-1.2) mg/dL AST 24 (5-40) units/L ALT 14 (7-56) units/L Alkaline Phosphatase 78 (35-129) units/L Ammonia (25-60) umol/L Troponin T 0.102 H* (0.00-0.029) ng/mL Total Protein 6.4 (6.3-8.2) g/dL Albumin 3.4 L (3.9-5) g/dL Albumin/Globulin Ratio 1.1 % Triglycerides 73 (2-149) mg/dL Cholesterol 108 (50-199) mg/dL LDL Cholesterol Direct 51 (50-130) mg/dL HDL Cholesterol 51 (40-59) mg/dL Cholesterol/HDL Ratio 2.11 % TSH (0.270-4.200) mlU/mL Urine Color (Yellow) Urine Turbidity (Clear) Urine pH (5.0-7.0) Ur Specific [place] (1.003-1.030) Urine Protein (Negative) mg/dL Urine Glucose (UA) (Negative) mg/dL Urine Ketones (Negative) mg/dL Urine Blood (Negative) Urine Nitrite (Negative) Urine Bilirubin (Negative) Urine Urobilinogen (<2.0) mg/dL Ur Leukocyte Esterase (Negative) Urine WBC (Auto) (0.0-6.0) /HPF Urine RBC (Auto) (0.0-6.0) /HPF U Epithel Cells (Auto) (0-13.0) /HPF Urine Bacteria (Auto) (Negative) /HPF Salicylates (2.8-20.0) mg/dL Urine Opiates Screen Urine Methadone Screen Acetaminophen (10.0-30.0) ug/mL Ur Barbiturates Screen Ur Phencyclidine Scrn Ur Amphetamines Screen U Benzodiazepines Scrn Urine Cocaine Screen U Marijuana (THC) Screen Drugs of Abuse Note Plasma/Serum Alcohol (0-0.07) % Blood Type Antibody Screen 08/12/19 08/12/19 08/12/19 Range/Units 17:14 17:14 17:15 WBC (4.5-11.0) K/mm3 RBC (3.65-5.03) M/mm3 Hgb (10.1-14.3) gm/dl Hct (30.3-42.9) % MCV (79-97) fl MCH (28-32) pg MCHC (30-34) % RDW (13.2-15.2) % Plt Count (140-440) K/mm3 Lymph % (Auto) (13.4-35.0) % Murray % (Auto) (0.0-7.3) % Eos % (Auto) (0.0-4.3) % Baso % (Auto) (0.0-1.8) % Lymph # (1.2-5.4) K/mm3 Murray # (0.0-0.8) K/mm3 Eos # (0.0-0.4) K/mm3 Baso # (0.0-0.1) K/mm3 Seg Neutrophils % (40.0-70.0) % Seg Neutrophils # (1.8-7.7) K/mm3 PT (12.2-14.9) Sec. INR (0.87-1.13) APTT (24.2-36.6) Sec. Sodium (137-145) mmol/L Potassium (3.6-5.0) mmol/L Chloride (98-107) mmol/L Carbon Dioxide (22-30) mmol/L Anion Gap mmol/L BUN (7-17) mg/dL Creatinine (0.7-1.2) mg/dL Estimated GFR ml/min BUN/Creatinine Ratio % Glucose (65-100) mg/dL POC Glucose (70-105) Lactic Acid (0.7-2.0) mmol/L Calcium (8.4-10.2) mg/dL Total Bilirubin (0.1-1.2) mg/dL AST (5-40) units/L ALT (7-56) units/L Alkaline Phosphatase (35-129) units/L Ammonia 46.0 (25-60) umol/L Troponin T (0.00-0.029) ng/mL Total Protein (6.3-8.2) g/dL Albumin (3.9-5) g/dL Albumin/Globulin Ratio % Triglycerides (2-149) mg/dL Cholesterol (50-199) mg/dL LDL Cholesterol Direct (50-130) mg/dL HDL Cholesterol (40-59) mg/dL Cholesterol/HDL Ratio % TSH 2.430 (0.270-4.200) mlU/mL Urine Color (Yellow) Urine Turbidity (Clear) Urine pH (5.0-7.0) Ur Specific [place] (1.003-1.030) Urine Protein (Negative) mg/dL Urine Glucose (UA) (Negative) mg/dL Urine Ketones (Negative) mg/dL Urine Blood (Negative) Urine Nitrite (Negative) Urine Bilirubin (Negative) Urine Urobilinogen (<2.0) mg/dL Ur Leukocyte Esterase (Negative) Urine WBC (Auto) (0.0-6.0) /HPF Urine RBC (Auto) (0.0-6.0) /HPF U Epithel Cells (Auto) (0-13.0) /HPF Urine Bacteria (Auto) (Negative) /HPF Salicylates (2.8-20.0) mg/dL Urine Opiates Screen Urine Methadone Screen Acetaminophen < 5.0 L (10.0-30.0) ug/mL Ur Barbiturates Screen Ur Phencyclidine Scrn Ur Amphetamines Screen U Benzodiazepines Scrn Urine Cocaine Screen U Marijuana (THC) Screen Drugs of Abuse Note Plasma/Serum Alcohol (0-0.07) % Blood Type Antibody Screen 08/12/19 08/12/19 08/12/19 Range/Units 17:15 17:15 17:19 WBC (4.5-11.0) K/mm3 RBC (3.65-5.03) M/mm3 Hgb (10.1-14.3) gm/dl Hct (30.3-42.9) % MCV (79-97) fl MCH (28-32) pg MCHC (30-34) % RDW (13.2-15.2) % Plt Count (140-440) K/mm3 Lymph % (Auto) (13.4-35.0) % Murray % (Auto) (0.0-7.3) % Eos % (Auto) (0.0-4.3) % Baso % (Auto) (0.0-1.8) % Lymph # (1.2-5.4) K/mm3 Murray # (0.0-0.8) K/mm3 Eos # (0.0-0.4) K/mm3 Baso # (0.0-0.1) K/mm3 Seg Neutrophils % (40.0-70.0) % Seg Neutrophils # (1.8-7.7) K/mm3 PT (12.2-14.9) Sec. INR (0.87-1.13) APTT (24.2-36.6) Sec. Sodium (137-145) mmol/L Potassium (3.6-5.0) mmol/L Chloride (98-107) mmol/L Carbon Dioxide (22-30) mmol/L Anion Gap mmol/L BUN (7-17) mg/dL Creatinine (0.7-1.2) mg/dL Estimated GFR ml/min BUN/Creatinine Ratio % Glucose (65-100) mg/dL POC Glucose (70-105) Lactic Acid (0.7-2.0) mmol/L Calcium (8.4-10.2) mg/dL Total Bilirubin (0.1-1.2) mg/dL AST (5-40) units/L ALT (7-56) units/L Alkaline Phosphatase (35-129) units/L Ammonia (25-60) umol/L Troponin T (0.00-0.029) ng/mL Total Protein (6.3-8.2) g/dL Albumin (3.9-5) g/dL Albumin/Globulin Ratio % Triglycerides (2-149) mg/dL Cholesterol (50-199) mg/dL LDL Cholesterol Direct (50-130) mg/dL HDL Cholesterol (40-59) mg/dL Cholesterol/HDL Ratio % TSH (0.270-4.200) mlU/mL Urine Color Yellow (Yellow) Urine Turbidity Slightly-cloudy (Clear) Urine pH 6.0 (5.0-7.0) Ur Specific [place] 1.012 (1.003-1.030) Urine Protein 100 mg/dl (Negative) mg/dL Urine Glucose (UA) Neg (Negative) mg/dL Urine Ketones Neg (Negative) mg/dL Urine Blood Neg (Negative) Urine Nitrite Neg (Negative) Urine Bilirubin Neg (Negative) Urine Urobilinogen 2.0 (<2.0) mg/dL Ur Leukocyte Esterase Neg (Negative) Urine WBC (Auto) 2.0 (0.0-6.0) /HPF Urine RBC (Auto) 1.0 (0.0-6.0) /HPF U Epithel Cells (Auto) 12.0 (0-13.0) /HPF Urine Bacteria (Auto) 1+ (Negative) /HPF Salicylates < 0.3 L (2.8-20.0) mg/dL Urine Opiates Screen Urine Methadone Screen Acetaminophen (10.0-30.0) ug/mL Ur Barbiturates Screen Ur Phencyclidine Scrn Ur Amphetamines Screen U Benzodiazepines Scrn Urine Cocaine Screen U Marijuana (THC) Screen Drugs of Abuse Note Plasma/Serum Alcohol < 0.01 (0-0.07) % Blood Type Antibody Screen 08/12/19 Range/Units 17:19 WBC (4.5-11.0) K/mm3 RBC (3.65-5.03) M/mm3 Hgb (10.1-14.3) gm/dl Hct (30.3-42.9) % MCV (79-97) fl MCH (28-32) pg MCHC (30-34) % RDW (13.2-15.2) % Plt Count (140-440) K/mm3 Lymph % (Auto) (13.4-35.0) % Murray % (Auto) (0.0-7.3) % Eos % (Auto) (0.0-4.3) % Baso % (Auto) (0.0-1.8) % Lymph # (1.2-5.4) K/mm3 Murray # (0.0-0.8) K/mm3 Eos # (0.0-0.4) K/mm3 Baso # (0.0-0.1) K/mm3 Seg Neutrophils % (40.0-70.0) % Seg Neutrophils # (1.8-7.7) K/mm3 PT (12.2-14.9) Sec. INR (0.87-1.13) APTT (24.2-36.6) Sec. Sodium (137-145) mmol/L Potassium (3.6-5.0) mmol/L Chloride (98-107) mmol/L Carbon Dioxide (22-30) mmol/L Anion Gap mmol/L BUN (7-17) mg/dL Creatinine (0.7-1.2) mg/dL Estimated GFR ml/min BUN/Creatinine Ratio % Glucose (65-100) mg/dL POC Glucose (70-105) Lactic Acid (0.7-2.0) mmol/L Calcium (8.4-10.2) mg/dL Total Bilirubin (0.1-1.2) mg/dL AST (5-40) units/L ALT (7-56) units/L Alkaline Phosphatase (35-129) units/L Ammonia (25-60) umol/L Troponin T (0.00-0.029) ng/mL Total Protein (6.3-8.2) g/dL Albumin (3.9-5) g/dL Albumin/Globulin Ratio % Triglycerides (2-149) mg/dL Cholesterol (50-199) mg/dL LDL Cholesterol Direct (50-130) mg/dL HDL Cholesterol (40-59) mg/dL Cholesterol/HDL Ratio % TSH (0.270-4.200) mlU/mL Urine Color (Yellow) Urine Turbidity (Clear) Urine pH (5.0-7.0) Ur Specific [place] (1.003-1.030) Urine Protein (Negative) mg/dL Urine Glucose (UA) (Negative) mg/dL Urine Ketones (Negative) mg/dL Urine Blood (Negative) Urine Nitrite (Negative) Urine Bilirubin (Negative) Urine Urobilinogen (<2.0) mg/dL Ur Leukocyte Esterase (Negative) Urine WBC (Auto) (0.0-6.0) /HPF Urine RBC (Auto) (0.0-6.0) /HPF U Epithel Cells (Auto) (0-13.0) /HPF Urine Bacteria (Auto) (Negative) /HPF Salicylates (2.8-20.0) mg/dL Urine Opiates Screen Presumptive negative Urine Methadone Screen Presumptive negative Acetaminophen (10.0-30.0) ug/mL Ur Barbiturates Screen Presumptive negative Ur Phencyclidine Scrn Presumptive negative Ur Amphetamines Screen Presumptive negative U Benzodiazepines Scrn Presumptive negative Urine Cocaine Screen Presumptive negative U Marijuana (THC) Screen Presumptive negative Drugs of Abuse Note Disclamer Plasma/Serum Alcohol (0-0.07) % Blood Type Antibody Screen - EKG Data -: EKG Interpreted by Vt EKG shows normal: sinus rhythm Rate: bradycardia - EKG Data Interpretation: other 08/12/19 18:49 EKG today shows a sinus bradycardia, 53 bpm, left axis deviation, left ve ntricular hypertrophy, left anterior fascicular block, motion artifact, incomplete right bundle branch block, the EKG is abnormal, the EKG is not consistent with STEMI, appears grossly unchanged from prior EKG from 08/31/2019, with the exception of morphology in V2. - Radiology Data Radiology results: report reviewed, image reviewed Print Report Referring Physician: JJ PEREA Patient Name: TOMMY WALLACE Date of : 1940 Sex: Female Report Date: 2019-08-12 Report Status: Finalized Findings [address] [address] XRay Report Signed Patient: TOMMY WALLACE MR# : [id number] : 1940 Acct:[id number] Age/Sex: 79 / F ADM Date: 08/12/19 Loc: ED Attending Dr: Ordering Physician: JJ PEREA MD Date of Service: 08/12/19 Procedure(s): XR chest 1V ap Accession Number(s): [id number] cc: JJ PEREA MD Fluoro Time In Minutes: CHEST 1 VIEW 08/12/2019 5:16 PM INDICATION / CLINICAL INFORMATION: Altered Mental Status. COMPARISON: 10/23/2018 FINDINGS: SUPPORT DEVICES: None. HEART / MEDIASTINUM: Normal heart size. Atherosclerosis in the thoracic aorta. LUNGS / PLEURA: Mild bibasilar subsegmental atelectasis. No focal consolidation or significant effusion. No pneumothorax. ADDITIONAL FINDINGS: No significant additional findings. IMPRESSION: 1. Mild bibasilar subsegmental atelectasis. Signer Name: Miah Asif MD Signed: 08/12/2019 5:45 PM Workstation Name: [id number] Transcribed By: LEOBARDO Dictated By: Miah Asif MD Electronically Authenticated By: Miah Asif MD Signed Date/Time: 08/12/191744 DD/ 42 Print Report Referring Physician: JJ PEREA Patient Name: TOMMY WALLACE Date of : 1940 Sex: Female Report Date: 2019-08-12 Report Status: Finalized Findings [address] [address] Cat Scan Report Signed Patient: TOMMY WALLACE MR# : [id number] : 1940 Acct:[id number] Age/Sex: 79 / F ADM Date: 08/12/19 Loc: ED Attending Dr: Ordering Physician: JJ PEREA MD Date of Service: 08/12/19 Procedure(s): CT head/brain wo con Accession Number(s): [id number] cc: JJ PEREA MD CT HEAD WITHOUT CONTRAST INDICATION / CLINICAL INFORMATION: Altered Mental Status. TECHNIQUE: All CT scans at this location are performed using CT dose reduction for ALARA by means of automated exposure control. COMPARISON: Head CT 10/14/2018 FINDINGS: HEMORRHAGE: No evidence of intracranial hemorrhage or extra-axial fluid collection. EXTRA-AXIAL SPACES: Cortical sulci, sylvian fissures and basilar cisterns have an unremarkable appearance. VENTRICULAR SYSTEM: The ventricular system is of normal size and configuration given the patient's age of 79 years.. CEREBRAL PARENCHYMA: Bilaterally symmetrical physiological calcifications are seen in the basal ganglia regions bilaterally. No significant areas of abnormal brain parenchymal attenuation are identified. There is no indication of recent infarction. MIDLINE SHIFT OR HERNIATION: There is no mass effect. CEREBELLUM / BRAINSTEM: Brainstem and cerebellum have an unremarkable appearance. INTRACRANIAL VESSELS: Calcified atherosclerotic plaque is seen along the course of the cavernous segments of both internal carotid arteries. Similar findings are seen at the distal vertebral arteries. ORBITS: visualized portions of the orbits have an unremarkable appearance. SOFT TISSUES of HEAD: No significant abnormality. CALVARIUM: Evaluation of bone windows reveals no abnormalities. PARANASAL SINUSES / MASTOID AIR CELLS: Paranasal sinuses are free from inflammatory mucosal disease. Mastoid air cells are normally pneumatized. IMPRESSION: 1. Mild, age-appropriate parenchymal volume loss and microvascular ischemic change. 2. No acute intracranial abnormalities are identified. 3. No interval change since head CT 10/14/2018. Signer Name: Ernie Nicholson MD Signed: 08/12/2019 8:10 PM Workstation Name: [id number] Transcribed By: Dictated By: Ernie Nicholson MD Electronically Authenticated By: Ernie Nicholson MD Signed Date/Time: 08/12/192009 Critical care attestation.: If time is entered above; I have spent that time in minutes in the direct care of this critically ill patient, excluding procedure time. ED Disposition Clinical Impression: Encephalopathy, ESRD (end stage renal disease) on dialysis, Seizure, Altered mental state, Mild aortic stenosis Disposition: -09 OP ADMIT IP TO THIS HOSP Is pt being admited?: Yes Does the pt Need Aspirin: Yes Condition: Poor Referrals: PRIMARY CARE,MD [Primary Care Provider] - 3-5 Days
[2019-08-12 17:36] LABS: Bacteria,Urine 1+ /HPF (Negative); Bilirubin,Urine NEG (Negative); Blood,Urine NEG (Negative); Color,Urine Yellow (Yellow)
[2019-08-12 17:43] LABS: INR 0.92 (0.87-1.13)
[2019-08-12 17:44] LABS: Basophils # (Auto) 0.1 K/mm3 (0.0-0.1); Basophils % (Auto) 0.9 % (0.0-1.8); Eosinophils # (Auto) 0.1 K/mm3 (0.0-0.4); Eosinophils % (Auto) 1.1 % (0.0-4.3); Hematocrit 35.8 % (30.3-42.9); Hemoglobin 11.3 gm/dl (10.1-14.3); Lymphocytes # (Auto) 0.8 K/mm3 (1.2-5.4); Lymphocytes % (Auto) 12.8 % (13.4-35.0); Mean Corpuscular HGB Conc 32 % (30-34); Mean Corpuscular Volume 91 fl (79-97); Monocytes # (Auto) 0.7 K/mm3 (0.0-0.8); Monocytes % (Auto) 12.1 % (0.0-7.3); Red Blood Count 3.93 M/mm3 (3.65-5.03); Red Cell Distribution Width 16.9 % (13.2-15.2)
[2019-08-12 17:45] LABS: Partial Thromboplastin Time 30.3 Sec. (24.2-36.6)
--- NOTE | 2019-08-12 17:49 | XRay Report ---
CHEST 1 VIEW 08/12/2019 5:16 PM INDICATION / CLINICAL INFORMATION: Altered Mental Status. COMPARISON: 10/23/2018 FINDINGS: SUPPORT DEVICES: None. HEART / MEDIASTINUM: Normal heart size. Atherosclerosis in the thoracic aorta. LUNGS / PLEURA: Mild bibasilar subsegmental atelectasis. No focal consolidation or significant effusi on. No pneumothorax. ADDITIONAL FINDINGS: No significant additional findings. IMPRESSION: 1. Mild bibasilar subsegmental atelectasis. Signer Name: Miah Asif MD Signed: 08/12/2019 5:45 PM Workstation Name: [id number]
[2019-08-12 17:51] LABS: Platelet Count 86 K/mm3 (140-440)
[2019-08-12 17:55] LABS: Amphetamine Screen,Urine PRESUMPTIVE NEGATIVE; Benzodiazepines Screen,Urine PRESUMPTIVE NEGATIVE; Cannabinoid Screen,Urine PRESUMPTIVE NEGATIVE; Cocaine Screen,Urine PRESUMPTIVE NEGATIVE; Methadone Screen,Urine PRESUMPTIVE NEGATIVE; Opiate Screen,Urine PRESUMPTIVE NEGATIVE
[2019-08-12 18:02] LABS: Albumin 3.4 g/dL (3.9-5); Calcium 9.3 mg/dL (8.4-10.2)
[2019-08-12 18:16] LABS: Chol/HDL Ratio 2.11 %
[2019-08-12] MEDS ORDERED: hydrALAZINE 20 MG/1 ML INJ IV ONE (18:48)
[2019-08-12] MEDS ORDERED: SODIUM POLYSTYRENE 15 GM/60 ML ORAL LIQD PR ONE (18:53)
--- NOTE | 2019-08-12 20:15 | Cat Scan Report ---
CT HEAD WITHOUT CONTRAST INDICATION / CLINICAL INFORMATION: Altered Mental Status. TECHNIQUE: All CT scans at this location are performed using CT dose reduction for ALARA by means of automated e xposure control. COMPARISON: Head CT 10/14/2018 FINDINGS: HEMORRHAGE: No evidence of intracranial hemorrhage or extra-axial fluid collection. EXTRA-AXIAL SPACES: Cortical sulci, sylvian fissures and basilar cisterns have an unremarkable appear ance. VENTRICULAR SYSTEM: The ventricular system is of normal size and configuration given the patient's ag e of 79 years.. CEREBRAL PARENCHYMA: Bilaterally symmetrical physiological calcifications are seen in the basal gangl ia regions bilaterally. No significant areas of abnormal brain parenchymal attenuation are identified . There is no indication of recent infarction. MIDLINE SHIFT OR HERNIATION: There is no mass effect. CEREBELLUM / BRAINSTEM: Brainstem and cerebellum have an unremarkable appearance. INTRACRANIAL VESSELS: Calcified atherosclerotic plaque is seen along the course of the cavernous segm ents of both internal carotid arteries. Similar findings are seen at the distal vertebral arteries. ORBITS: visualized portions of the orbits have an unremarkable appearance. SOFT TISSUES of HEAD: No significant abnormality. CALVARIUM: Evaluation of bone windows reveals no abnormalities. PARANASAL SINUSES / MASTOID AIR CELLS: Paranasal sinuses are free from inflammatory mucosal disease. Mastoid air cells are normally pneumatized. IMPRESSION: 1. Mild, age-appropriate parenchymal volume loss and microvascular ischemic change. 2. No acute intracranial abnormalities are identified. 3. No interval change since head CT 10/14/2018. Signer Name: Ernie Nicholson MD Signed: 08/12/2019 8:10 PM Workstation Name: [id number]
[2019-08-12] MEDS ORDERED: ASPIRIN 300 MG RECT SUPP PR ONE (20:39)
--- NOTE | 2019-08-12 22:23 | History and Physical Report ---
History of Present Illness History of present illness: 79-year-old woman with a history of hypertension, diabetes, CHF, end-stage renal disease on dialysis was brought to the emergency room for evaluation for seizure. History is per the emergency room physician, patient is unable to give a history, may return traveling, review of systems unobtainable PAST MEDICAL HISTORY: hypertension, diabetes, CHF, end-stage renal disease on dialysis PAST SURGICAL HISTORY: Unknown SOCIAL HISTORY: Unknown FAMILY HISTORY:Unknown Medications and Allergies Allergies Allergy/AdvReac Type Severity Reaction Status Date / Time No Known Allergies Allergy Unverified 02/02/18 15:43 Home Medications Medication Instructions Recorded Confirmed Last Taken Type Aspirin 81 mg PO DAILY 08/13/18 10/24/18 08/11/18 History Baclofen 10 mg PO TID 08/13/18 10/24/18 08/11/18 History Tizanidine HCl [Zanaflex 4mg CAP] 4 mg PO TID 08/13/18 10/24/18 08/11/18 History amLODIPine 10 mg PO DAILY 08/13/18 10/24/18 08/11/18 History Lacosamide [Vimpat] 50 mg PO Q12HR #60 tablet 08/18/18 10/24/18 Unknown Rx Acetaminophen [Acetaminophen TAB] 650 mg PO Q4H PRN tablet 09/02/18 10/24/18 Unknown Rx Aspirin [Aspirin BABY CHEW TAB] 81 mg PO DAILY tab.chew 09/02/18 10/24/18 Unknown Rx Famotidine [Pepcid] 10 mg PO BID tablet 09/02/18 10/24/18 Unknown Rx Lispro Insulin [HumaLOG] 0 unit SUB-Q ACHS units 09/02/18 10/24/18 Unknown Rx Gabapentin 100 mg PO Q12H #60 capsule 10/15/18 10/24/18 Unknown Rx ISOSORBIDE MONOnitrate [Imdur ER] 60 mg PO DAILY tablet 10/15/18 10/24/18 Unknown Rx Insulin Regular, Human [HumuLIN R] 0 units SUB-Q QHS units 10/15/18 10/24/18 Unknown Rx Lisinopril [Zestril TAB] 40 mg PO DAILY tablet 10/15/18 10/24/18 Unknown Rx carvediloL [Coreg] 12.5 mg PO BID tablet 10/15/18 10/24/18 Unknown Rx cloNIDine [Catapres] 0.2 mg PO BID tablet 10/15/18 10/24/18 Unknown Rx Losartan [Cozaar] 50 mg PO QDAY #30 tablet 11/01/18 Unknown Rx levETIRAcetam [Keppra TAB] 750 mg PO BID #60 tablet 11/01/18 Unknown Rx oxyCODONE /ACETAMINOPHEN [Percocet 1 tab PO Q6H PRN #12 tablet 11/01/18 Unknown Rx 5/325 mg] Exam - Physical Exam Narrative exam: Gen. appearance: Patient lying in bed, no apparent distress HEENT: Normocephalic, atraumatic, pupils equally round and reactive to light, extraocular movement intact, and no sclericterus,. No JVD or thyromegaly or nodule,neck supple, no carotid bruit ,mucous membranes moist, no exudate or erythema Heart: S1, S2, regular rate and rhythm Lungs: Clear bilaterally, breathing comfortable Abdomen: Positive bowel sounds, non-tender, nondistended, no organomegaly Extremity:no edema cyanosis, clubbing Skin: no rash, dry, warm Neuro: Difficult to assess - Constitutional Vitals: Temp Pulse Resp BP Pulse Ox 96.6 F L 57 L 15 135/44 98 08/12/19 17:19 08/12/19 21:58 08/12/19 21:58 08/12/19 21:58 08/12/19 21:58 Results - Labs CBC & Chem 7: 08/12/19 17:14 08/12/19 17:14 Labs: Abnormal lab results 08/12/19 08/12/19 08/12/19 Range/Units 16:46 17:14 17:14 RDW 16.9 H (13.2-15.2) % Plt Count 86 L (140-440) K/mm3 Lymph % (Auto) 12.8 L (13.4-35.0) % [place] % (Auto) 12.1 H (0.0-7.3) % Lymph # 0.8 L (1.2-5.4) K/mm3 Seg Neutrophils % 73.1 H (40.0-70.0) % Potassium 5.3 H (3.6-5.0) mmol/L BUN 35 H (7-17) mg/dL Creatinine 5.1 H (0.7-1.2) mg/dL Glucose 126 H (65-100) mg/dL POC Glucose 137 H (70-105) Troponin T 0.102 H* (0.00-0.029) ng/mL Albumin 3.4 L (3.9-5) g/dL Salicylates (2.8-20.0) mg/dL Acetaminophen (10.0-30.0) ug/mL 08/12/19 08/12/19 Range/Units 17:14 17:15 RDW (13.2-15.2) % Plt Count (140-440) K/mm3 Lymph % (Auto) (13.4-35.0) % [place] % (Auto) (0.0-7.3) % Lymph # (1.2-5.4) K/mm3 Seg Neutrophils % (40.0-70.0) % Potassium (3.6-5.0) mmol/L BUN (7-17) mg/dL Creatinine (0.7-1.2) mg/dL Glucose (65-100) mg/dL POC Glucose (70-105) Troponin T (0.00-0.029) ng/mL Albumin (3.9-5) g/dL Salicylates < 0.3 L (2.8-20.0) mg/dL Acetaminophen < 5.0 L (10.0-30.0) ug/mL - Imaging and Cardiology Chest x-ray: image reviewed CT Scan - head: report reviewed Assessment and Plan Assessment Acute on chronic seizure End Stage renal disease on dialysis Hypertension Diabetes CHF, stable Plan Admit to medicine Consult renal for dialysis, give Kayexalate Continue keppra, s/p a dose in ER Start IV ativan as needed for seizure, consult neurology Check cardiac enzymes, echo Check fingersticks initiate insulin sliding scale DVT prophylaxis
[2019-08-12] MEDS ORDERED: ONDANSETRON 4 MG/2 ML INJ IV PRN (23:24)
[2019-08-12] MEDS ORDERED: LORazepam 2 MG/ML VIAL IV PRN (23:26)
[2019-08-13] MEDS ORDERED: DEXTROSE 50% IN WATER (25GM) 50 ML SYRINGE IV PRN (01:03)
[2019-08-13 02:22] LABS: Creatine Kinase MB 3.7 ng/mL (0.0-4.0)
[2019-08-13 02:31] LABS: Basophils % (Auto) 0.3 % (0.0-1.8); Eosinophils # (Auto) 0.1 K/mm3 (0.0-0.4); Eosinophils % (Auto) 1.7 % (0.0-4.3); Hematocrit 34.4 % (30.3-42.9); Hemoglobin 10.9 gm/dl (10.1-14.3); Lymphocytes # (Auto) 0.9 K/mm3 (1.2-5.4); Lymphocytes % (Auto) 15.1 % (13.4-35.0); Mean Corpuscular HGB Conc 32 % (30-34); Mean Corpuscular Volume 92 fl (79-97); Monocytes # (Auto) 0.6 K/mm3 (0.0-0.8); Monocytes % (Auto) 10.5 % (0.0-7.3); Red Blood Count 3.76 M/mm3 (3.65-5.03)
[2019-08-13 02:37] LABS: Platelet Count 93 K/mm3 (140-440)
[2019-08-13 02:56] LABS: Calcium 8.6 mg/dL (8.4-10.2)
[2019-08-13] MEDS: levETIRAcetam 750 MG in DEXTROSE 5% IN WATER 100 ML IV SCH ×2 (03:30→16:27)
[2019-08-13 05:40] LABS: Creatine Kinase MB 3.5 ng/mL (0.0-4.0)
[2019-08-13] MEDS ORDERED: ENOXAPARIN 30 MG/0.3 ML INJ SUB-Q SCH (10:00)
[2019-08-13] MEDS: hydrALAZINE 20 MG/1 ML INJ IV PRN (10:52)
[2019-08-13] MEDS: hydrALAZINE 100 MG TAB PO SCH ×2 (10:52→16:39)
[2019-08-13] MEDS: amLODIPine 10 MG TAB PO SCH (10:52)
--- NOTE | 2019-08-13 12:58 | Progress Note ---
Assessment and Plan Assessment and plan: Breakthrough seizure in a known seizure disorder patient -On IV Keppra -Continue seizure precaution Acute metabolic encephalopathy -Likely secondary to seizure activity versus uremia -Head CT scan negative -We'll monitor clinically End Stage renal disease on HD -Nephrology consulted Hypertensive urgency -On antihypertensives -We'll monitor blood pressure DM2 -Blood glucose low normal -will start D5 IVF and monitor BG Elevated troponin -Probably secondary to demand ischemia due to ESRD -Levels stable -Echocardiogram pending Hyperkalemia -MN kayaxelate ordered -Expected to improve with HD AOCD -H/H stable DVT ppx: Heparin Disposition: Discharge per clinical course History Interval history: Patient is unable to communicate. Per her nurese, she's less responsive and unable to swallow or eat Hospitalist Physical - Constitutional Vitals: Temp Pulse Resp BP Pulse Ox 97.3 F L 62 20 200/64 100 08/13/19 07:41 08/13/19 07:41 08/13/19 07:41 08/13/19 07:41 08/13/19 07:41 General appearance: Present: no acute distress - EENT Eyes: Present: PERRL ENT: clear oral mucosa - Neck Neck: Present: supple - Respiratory Respiratory effort: normal Respiratory: bilateral: rhonchi - Cardiovascular Rhythm: regular Heart Sounds: Present: S1 & S2 - Extremities Extremities: No edema - Abdominal General gastrointestinal: soft, non-tender, normal bowel sounds - Psychiatric Psychiatric: other (unable to assess due to AMS) - Neurologic Neurologic: other (patient is less responsive) Results - Labs CBC & Chem 7: 08/13/19 02:15 08/13/19 02:15 Labs: Laboratory Last Values WBC 5.9 K/mm3 (4.5-11.0) 08/13/19 02:15 RBC 3.76 M/mm3 (3.65-5.03) 08/13/19 02:15 Hgb 10.9 gm/dl (10.1-14.3) 08/13/19 02:15 Hct 34.4 % (30.3-42.9) 08/13/19 02:15 MCV 92 fl (79-97) 08/13/19 02:15 MCH 29 pg (28-32) 08/13/19 02:15 MCHC 32 % (30-34) 08/13/19 02:15 RDW 17.0 % (13.2-15.2) H 08/13/19 02:15 Plt Count 93 K/mm3 (140-440) L 08/13/19 02:15 Lymph % (Auto) 15.1 % (13.4-35.0) 08/13/19 02:15 [place] % (Auto) 10.5 % (0.0-7.3) H 08/13/19 02:15 Eos % (Auto) 1.7 % (0.0-4.3) 08/13/19 02:15 Baso % (Auto) 0.3 % (0.0-1.8) 08/13/19 02:15 Lymph # 0.9 K/mm3 (1.2-5.4) L 08/13/19 02:15 [place] # 0.6 K/mm3 (0.0-0.8) 08/13/19 02:15 Eos # 0.1 K/mm3 (0.0-0.4) 08/13/19 02:15 Baso # 0.0 K/mm3 (0.0-0.1) 08/13/19 02:15 Seg Neutrophils % 72.4 % (40.0-70.0) H 08/13/19 02:15 Seg Neutrophils # 4.2 K/mm3 (1.8-7.7) 08/13/19 02:15 PT 12.3 Sec. (12.2-14.9) 08/12/19 17:14 INR 0.92 (0.87-1.13) 08/12/19 17:14 APTT 30.3 Sec. (24.2-36.6) 08/12/19 17:14 Sodium 139 mmol/L (137-145) 08/13/19 02:15 Potassium 5.6 mmol/L (3.6-5.0) H 08/13/19 02:15 Chloride 100.9 mmol/L (98-107) 08/13/19 02:15 Carbon Dioxide 23 mmol/L (22-30) 08/13/19 02:15 Anion Gap 21 mmol/L 08/13/19 02:15 BUN 38 mg/dL (7-17) H 08/13/19 02:15 Creatinine 5.6 mg/dL (0.7-1.2) H 08/13/19 02:15 Estimated GFR 9 ml/min 08/13/19 02:15 BUN/Creatinine Ratio 7 % 08/13/19 02:15 Glucose 121 mg/dL (65-100) H 08/13/19 02:15 POC Glucose 98 (70-105) 08/13/19 10:17 Lactic Acid 1.20 mmol/L (0.7-2.0) 08/12/19 17:14 Calcium 8.6 mg/dL (8.4-10.2) 08/13/19 02:15 Total Bilirubin 0.60 mg/dL (0.1-1.2) 08/12/19 17:14 AST 24 units/L (5-40) 08/12/19 17:14 ALT 14 units/L (7-56) 08/12/19 17:14 Alkaline Phosphatase 78 units/L (35-129) 08/12/19 17:14 Ammonia 46.0 umol/L (25-60) 08/12/19 17:14 Total Creatine Kinase 25 units/L (30-135) L 08/13/19 05:03 CK-MB (CK-2) 3.5 ng/mL (0.0-4.0) 08/13/19 05:03 CK-MB (CK-2) Rel Index 14.0 (0-4) H 08/13/19 05:03 Troponin T 0.118 ng/mL (0.00-0.029) H* 08/13/19 05:03 Total Protein 6.4 g/dL (6.3-8.2) 08/12/19 17:14 Albumin 3.4 g/dL (3.9-5) L 08/12/19 17:14 Albumin/Globulin Ratio 1.1 % 08/12/19 17:14 Triglycerides 73 mg/dL (2-149) 08/12/19 17:14 Cholesterol 108 mg/dL (50-199) 08/12/19 17:14 LDL Cholesterol Direct 51 mg/dL (50-130) 08/12/19 17:14 HDL Cholesterol 51 mg/dL (40-59) 08/12/19 17:14 Cholesterol/HDL Ratio 2.11 % 08/12/19 17:14 TSH 2.430 mlU/mL (0.270-4.200) 08/12/19 17:15 Urine Color Yellow (Yellow) 08/12/19 17:19 Urine Turbidity Slightly-cloudy (Clear) 08/12/19 17:19 Urine pH 6.0 (5.0-7.0) 08/12/19 17:19 Ur Specific [place] 1.012 (1.003-1.030) 08/12/19 17:19 Urine Protein 100 mg/dl mg/dL (Negative) 08/12/19 17:19 Urine Glucose (UA) Neg mg/dL (Negative) 08/12/19 17:19 Urine Ketones Neg mg/dL (Negative) 08/12/19 17:19 Urine Blood Neg (Negative) 08/12/19 17:19 Urine Nitrite Neg (Negative) 08/12/19 17:19 Urine Bilirubin Neg (Negative) 08/12/19 17:19 Urine Urobilinogen 2.0 mg/dL (<2.0) 08/12/19 17:19 Ur Leukocyte Esterase Neg (Negative) 08/12/19 17:19 Urine WBC (Auto) 2.0 /HPF (0.0-6.0) 08/12/19 17:19 Urine RBC (Auto) 1.0 /HPF (0.0-6.0) 08/12/19 17:19 U Epithel Cells (Auto) 12.0 /HPF (0-13.0) 08/12/19 17:19 Urine Bacteria (Auto) 1+ /HPF (Negative) 08/12/19 17:19 Salicylates < 0.3 mg/dL (2.8-20.0) L 08/12/19 17:15 Urine Opiates Screen Presumptive negative 08/12/19 17:19 Urine Methadone Screen Presumptive negative 08/12/19 17:19 Acetaminophen < 5.0 ug/mL (10.0-30.0) L 08/12/19 17:14 Ur Barbiturates Screen Presumptive negative 08/12/19 17:19 Ur Phencyclidine Scrn Presumptive negative 08/12/19 17:19 Ur Amphetamines Screen Presumptive negative 08/12/19 17:19 U Benzodiazepines Scrn Presumptive negative 08/12/19 17:19 Urine Cocaine Screen Presumptive negative 08/12/19 17:19 U Marijuana (THC) Screen Presumptive negative 08/12/19 17:19 Drugs of Abuse Note Disclamer 08/12/19 17:19 Plasma/Serum Alcohol < 0.01 % (0-0.07) 08/12/19 17:15 Blood Type A POSITIVE 08/12/19 17:00 Antibody Screen Negative 08/12/19 17:00 Active Medications - Current Medications Current Medications: Generic Name Dose Route Start Last Admin Trade Name Freq PRN Reason Stop Dose Admin Acetaminophen 650 mg 08/12/19 23:24 Tylenol PO Q4H PRN Pain MILD(1-3)/Fever >100.5/VERDE Amlodipine Besylate 10 mg 08/13/19 10:00 08/13/19 10:52 Amlodipine PO 10 mg QDAY BUTCH Administration Dextrose 50 ml 08/13/19 01:03 D50w (25gm) Syringe IV Q30MIN PRN Hypoglycemia Protocol Enoxaparin Sodium 30 mg 08/13/19 10:00 08/13/19 10:52 Enoxaparin SUB-Q 30 mg QDAY BUTCH Administration Hydralazine HCl 100 mg 08/13/19 09:14 08/13/19 10:52 Apresoline PO 100 mg TID BUTCH Administration Hydralazine HCl 10 mg 08/13/19 09:15 08/13/19 10:52 Apresoline IV 10 mg Q4HR PRN Administration Blood Pressure Levetiracetam 750 mg/ Dextrose 107.5 mls @ 400 mls/hr 08/13/19 03:00 08/13/19 03:30 IV 400 mls/hr Q12H BUTCH Administration Lorazepam 1 mg 08/12/19 23:26 Ativan IV Q4H PRN Seizures Ondansetron HCl 4 mg 08/12/19 23:24 Zofran IV Q8H PRN Nausea And Vomiting Sodium Chloride 10 ml 08/13/19 10:00 08/13/19 10:53 Sodium Chloride Flush Syringe 10 Ml IV 10 ml BID BUTCH Administration Sodium Chloride 10 ml 08/12/19 23:24 Sodium Chloride Flush Syringe 10 Ml IV PRN PRN LINE FLUSH Sodium Polystyrene Sulfonate 30 gm 08/13/19 10:00 Kionex MN 08/13/19 16:01 Q6H BUTCH Nutrition/Malnutrition Assess - Dietary Evaluation Nutrition/Malnutrition Findings: Nutrition Notes Start: 08/13/19 12:15 Freq: Status: Active Protocol: Document 08/13/19 12:15 (Rec: 08/13/19 12:17 [id number]) Nutrition Notes Need for Assessment generated from: MST Initial or Follow up Brief Note Current Diagnosis CKD (stage V CKD),Diabetes, Hypertension,Heart Failure Other Pertinent Diagnosis on HD, AMS Current Diet NPO Subjective/Other Information Pt screened for MST. Pt asleep and snoring at both attempted visits. Pt did not respond to name. Nutrition Intervention Follow-Up By: 08/14/19 Additional Comments F/u for full nutrition assessment
[2019-08-13] MEDS ORDERED: D5W/0.9% NACL 1,000 ML IV SCH (13:00)
[2019-08-13] MEDS ORDERED: SODIUM CHLORIDE 0.9% 100 ML IV PRN (13:21)
--- NOTE | 2019-08-13 14:29 | Consultation ---
History of Present Illness - Reason for Consult Consult date: 08/13/19 end stage renal disease, hyperkalemia, accelerated hypertension Requesting physician: SNEHAL ROSEN - History of Present Illness 79-year-old female whom I have evaluated in the past. She is brought to the hospital today for reported seizures and altered mental status. Initially when I examined the patient, she is awake, but confused not following commands. She has periods where she will close her eyes, and then open them. As per verbal report from nurse, apparently, family contacted 911 because the patient had seizures. It is unknown how many convulsive episodes the patient had today. As per verbal report from nursing team, there is no history of trauma. We do not know with the seizures looked like, how long they lasted for, and if the patient has taken any of her seizure medication. Apparently, the patient walked out to EMS without significant difficulty, as per verbal report from nursing team. In the emergency room currently, the patient is awake, smiling, following commands, does not endorse any physical pain, and is not able to describe exacerbating or relieving factors. At the moment, family is not available for collateral information. ROS: Stated complaint: ALTERED MENTAL STATUS Other details as noted in HPI - Past Medical History Hx Hypertension: Yes Hx Congestive Heart Failure: Yes Hx Diabetes: Yes Hx Renal Disease: Yes (esrd on dialysis) Hx HIV: No Additional medical history: ESRD, Dialysis - Surgical History Additional Surgical History: Graft PA - Social History Smoking Status: Never Smoker Medications and Allergies Allergies Allergy/AdvReac Type Severity Reaction Status Date / Time No Known Allergies Allergy Unverified 02/02/18 15:43 Home Medications Medication Instructions Recorded Confirmed Last Taken Type Aspirin 81 mg PO DAILY 08/13/18 10/24/18 08/11/18 History Baclofen 10 mg PO TID 08/13/18 10/24/18 08/11/18 History Tizanidine HCl [Zanaflex 4mg CAP] 4 mg PO TID 08/13/18 10/24/18 08/11/18 History amLODIPine 10 mg PO DAILY 08/13/18 10/24/18 08/11/18 History Lacosamide [Vimpat] 50 mg PO Q12HR #60 tablet 08/18/18 10/24/18 Unknown Rx Acetaminophen [Acetaminophen TAB] 650 mg PO Q4H PRN tablet 09/02/18 10/24/18 Unknown Rx Aspirin [Aspirin BABY CHEW TAB] 81 mg PO DAILY tab.chew 09/02/18 10/24/18 Unknown Rx Famotidine [Pepcid] 10 mg PO BID tablet 09/02/18 10/24/18 Unknown Rx Lispro Insulin [HumaLOG] 0 unit SUB-Q ACHS units 09/02/18 10/24/18 Unknown Rx Gabapentin 100 mg PO Q12H #60 capsule 10/15/18 10/24/18 Unknown Rx ISOSORBIDE MONOnitrate [Imdur ER] 60 mg PO DAILY tablet 10/15/18 10/24/18 Unknown Rx Insulin Regular, Human [HumuLIN R] 0 units SUB-Q QHS units 10/15/18 10/24/18 Unknown Rx Lisinopril [Zestril TAB] 40 mg PO DAILY tablet 10/15/18 10/24/18 Unknown Rx carvediloL [Coreg] 12.5 mg PO BID tablet 10/15/18 10/24/18 Unknown Rx cloNIDine [Catapres] 0.2 mg PO BID tablet 10/15/18 10/24/18 Unknown Rx Losartan [Cozaar] 50 mg PO QDAY #30 tablet 11/01/18 Unknown Rx levETIRAcetam [Keppra TAB] 750 mg PO BID #60 tablet 11/01/18 Unknown Rx oxyCODONE /ACETAMINOPHEN [Percocet 1 tab PO Q6H PRN #12 tablet 11/01/18 Unknown Rx 5/325 mg] Active Meds: Active Medications Acetaminophen (Tylenol) 650 mg PO Q4H PRN PRN Reason: Pain MILD(1-3)/Fever >100.5/VERDE Amlodipine Besylate (Amlodipine) 10 mg PO QDAY [facility] Last Admin: 08/13/19 10:52 Dose: 10 mg Documented by: Dextrose (D50w (25gm) Syringe) 50 ml IV Q30MIN PRN; Protocol PRN Reason: Hypoglycemia Heparin Sodium (Porcine) (Heparin) 5,000 unit SUB-Q Q12HR [facility] Hydralazine HCl (Apresoline) 100 mg PO TID [facility] Last Admin: 08/13/19 10:52 Dose: 100 mg Documented by: Hydralazine HCl (Apresoline) 10 mg IV Q4HR PRN PRN Reason: Blood Pressure Levetiracetam 750 mg/ Dextrose 107.5 mls @ 400 mls/hr IV Q12H [facility] Last Admin: 08/13/19 03:30 Dose: 400 mls/hr Documented by: Dextrose/Sodium Chloride (D5ns) 1,000 mls @ 42 mls/hr IV DIRECT BUTCH Sodium Chloride (Nacl 0.9%) 100 mls @ 999 mls/hr IV ALANA PRN PRN Reason: Hypotension Lorazepam (Ativan) 1 mg IV Q4H PRN PRN Reason: Seizures Ondansetron HCl (Zofran) 4 mg IV Q8H PRN PRN Reason: Nausea And Vomiting Sodium Chloride (Sodium Chloride Flush Syringe 10 Ml) 10 ml IV BID [facility] Last Admin: 08/13/19 10:53 Dose: 10 ml Documented by: Sodium Chloride (Sodium Chloride Flush Syringe 10 Ml) 10 ml IV PRN PRN PRN Reason: LINE FLUSH Sodium Polystyrene Sulfonate (Kionex) 30 gm LA Q6H [facility] Stop: 08/13/19 16:01 Exam - Vital Signs Vital signs: Vital Signs Pulse Resp Pulse Ox 56 L 8 L 99 08/12/19 15:58 08/12/19 15:58 08/12/19 15:58 - Physical Exam Narrative exam: - General Limitations: Altered Mental Status, Physical Limitation General appearance: alert, other (patient initially listless, responsive to painful stimuli, now awake, smiling, in no acute distress, following commands) - Head Head exam: Present: atraumatic, normocephalic - Eye Eye exam: Present: normal appearance, PERRL - ENT ENT exam: Present: normal orophraynx, mucous membranes moist, normal external ear exam - Neck Neck exam: Present: normal inspection, full ROM. Absent: tenderness, meningismus - Respiratory Respiratory exam: Present: wheezes, rales, rhonchi, stridor, decreased breath sounds. Absent: respiratory distress - Cardiovascular Cardiovascular Exam: Present: normal rhythm, bradycardia, systolic murmur, JVD. Absent: irregular rhythm, diastolic murmur, rubs, gallop - GI/Abdominal GI/Abdominal exam: Present: soft. Absent: distended, tenderness, guarding, rebound, rigid, pulsatile mass - Extremities Exam Extremities exam: Present: normal inspection (patient withdraws 4 extremities to painful stimuli. 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 There is no long bone tenderness. Musculoskeletal compartments are soft. The pelvis is stable.). Absent: calf tenderness - Back Exam Back exam: Present: normal inspection. Absent: tenderness, CVA tenderness (R), CVA tenderness (L), paraspinal tenderness, vertebral tenderness - Neurological Exam Neurological exam: Present: altered, other (there is no facial droop. The patient follows commands. Withdraws 4 extremities to painful stimuli. Detailed neurologic examination not possible secondary to altered mental status advanced age, question postictal state) - Skin Skin exam: Present: warm, dry, intact, normal color. Absent: rash Results - Lab Results 08/13/19 02:15 08/13/19 02:15 Most recent lab results Calcium 8.6 mg/dL (8.4-10.2) 08/13/19 02:15 Assessment and Plan Impression * End-stage renal disease on maintenance hemodialysis * AMS * Hypertension * Type II diabetes mellitus * History of seizure disorder * Hepatitis C * Thrombocytopenia Recommendations * Continue hemodialysis today and then MWF schedule as outpatient * UF as tolerated * Avoid nephrotoxins * Adjust diet and meds for ESRD state * No IV, BP or venipuncture and her access arm * Epogen per protocol
[2019-08-13 16:08] LABS: Hepatitis B Surface Antigen Non-Reactive (Negative); Hepatitis C Virus Antibody Reactive (NonReactive)
[2019-08-13] MEDS: SODIUM POLYSTYRENE 15 GM/60 ML ORAL LIQD PR SCH ×3 (16:22→16:40)
[2019-08-13] MEDS ORDERED: SODIUM CHLORIDE*PRIMING MACHINE ONLY FOR DIALYSIS MC ONE (21:13)
[2019-08-13] MEDS ORDERED: HEPARIN 5,000 UNIT/1 ML VIAL SUB-Q SCH (22:00)
[2019-08-14] MEDS: hydrALAZINE 100 MG TAB PO SCH ×3 (00:06→20:59)
[2019-08-14] MEDS: levETIRAcetam 750 MG in DEXTROSE 5% IN WATER 100 ML IV SCH (02:42)
[2019-08-14] MEDS: INSULIN LISPRO 100 UNIT/ML SUB-Q SCH ×3 (03:10→22:43)
[2019-08-14 07:24] LABS: Blood Urea Nitrogen TNR mg/dL (7-17)
[2019-08-14 07:26] LABS: BUN/Creatinine Ratio TNR; Calcium TNR mg/dL (8.4-10.2); Hemolysis Index 171
--- NOTE | 2019-08-14 11:55 | Progress Note ---
Assessment and Plan Assessment and plan: Breakthrough seizure in a known seizure disorder patient -cont IV Keppra -Continue seizure precaution Acute metabolic encephalopathy -probably secondary to seizure activity versus uremia -Head CT scan negative -Patient is still unresponsive, will do MRI brain for further evaluation -Neurology consulted Acute respiratory failure with hypoxia, POA -Continue oxygen supplementation as needed End Stage renal disease on HD -Nephrology following SIRS evidenced by HR>90, RR:22 -exact source of infection unknown -Blood cultures 2 obtained -Chest x-ray on 08/12 neg for infiltrate Hypertensive urgency -Blood pressure stable -On PRN hydralazine DM2 -Blood glucose stable -On SSI Elevated troponin -Probably secondary to demand ischemia due to ESRD -Levels stable -Echocardiogram showed EF of 65-70% with severe pulmonary hypertension and mild to moderate MRV,TVR -cardiology consulted Hyperkalemia -On HD -Repeat lab pending AOCD -H/H stable Thrombocytopenia -We'll monitor level DVT ppx: SCD due to thrombocytopenia Disposition: Condition guarded. MRI brain pending. f/u neurology and cardiology recs. DC per clinical course History Interval history: Patient is still unresponsive Hospitalist Physical - Constitutional Vitals: Temp Pulse Resp BP Pulse Ox 100.2 F H 96 H 22 148/51 97 08/14/19 08:50 08/14/19 08:50 08/14/19 08:50 08/14/19 08:50 08/14/19 08:50 General appearance: Present: no acute distress - EENT Eyes: Present: PERRL ENT: clear oral mucosa - Neck Neck: Present: supple - Respiratory Respiratory effort: normal Respiratory: bilateral: CTA - Cardiovascular Rhythm: regular - Extremities Extremities: No edema - Abdominal General gastrointestinal: soft, non-tender, normal bowel sounds - Psychiatric Psychiatric: other (unable to assess due to AMS) - Neurologic Neurologic: other (pt is unresponsive) Results - Labs CBC & Chem 7: 08/13/19 02:15 08/14/19 05:51 Labs: Laboratory Last Values WBC 5.9 K/mm3 (4.5-11.0) 08/13/19 02:15 RBC 3.76 M/mm3 (3.65-5.03) 08/13/19 02:15 Hgb 10.9 gm/dl (10.1-14.3) 08/13/19 02:15 Hct 34.4 % (30.3-42.9) 08/13/19 02:15 MCV 92 fl (79-97) 08/13/19 02:15 MCH 29 pg (28-32) 08/13/19 02:15 MCHC 32 % (30-34) 08/13/19 02:15 RDW 17.0 % (13.2-15.2) H 08/13/19 02:15 Plt Count 93 K/mm3 (140-440) L 08/13/19 02:15 Lymph % (Auto) 15.1 % (13.4-35.0) 08/13/19 02:15 [place] % (Auto) 10.5 % (0.0-7.3) H 08/13/19 02:15 Eos % (Auto) 1.7 % (0.0-4.3) 08/13/19 02:15 Baso % (Auto) 0.3 % (0.0-1.8) 08/13/19 02:15 Lymph # 0.9 K/mm3 (1.2-5.4) L 08/13/19 02:15 [place] # 0.6 K/mm3 (0.0-0.8) 08/13/19 02:15 Eos # 0.1 K/mm3 (0.0-0.4) 08/13/19 02:15 Baso # 0.0 K/mm3 (0.0-0.1) 08/13/19 02:15 Seg Neutrophils % 72.4 % (40.0-70.0) H 08/13/19 02:15 Seg Neutrophils # 4.2 K/mm3 (1.8-7.7) 08/13/19 02:15 PT 12.3 Sec. (12.2-14.9) 08/12/19 17:14 INR 0.92 (0.87-1.13) 08/12/19 17:14 APTT 30.3 Sec. (24.2-36.6) 08/12/19 17:14 POC ABG pH 7.376 (7.35-7.45) 08/13/19 22:54 POC ABG pCO2 48.8 (35-45) H 08/13/19 22:54 POC ABG pO2 62 (80-105) L 08/13/19 22:54 POC ABG HCO3 28.6 (22-26 mml/L) 08/13/19 22:54 POC ABG Total CO2 30 (23-27mmol/L) 08/13/19 22:54 POC ABG O2 Sat 91 08/13/19 22:54 POC ABG Base Excess 3 ((-2) - (+3)mmol/L) 08/13/19 22:54 FiO2 100 % 08/13/19 22:54 Sodium TNR 08/14/19 05:51 Potassium TNR 08/14/19 05:51 Chloride TNR 08/14/19 05:51 Carbon Dioxide TNR 08/14/19 05:51 Anion Gap TNR 08/14/19 05:51 BUN TNR 08/14/19 05:51 Creatinine TNR 08/14/19 05:51 Estimated GFR TNR 08/14/19 05:51 BUN/Creatinine Ratio TNR 08/14/19 05:51 Glucose TNR 08/14/19 05:51 POC Glucose 202 (70-105) H 08/14/19 09:52 Lactic Acid 1.20 mmol/L (0.7-2.0) 08/12/19 17:14 Calcium TNR 08/14/19 05:51 Total Bilirubin 0.60 mg/dL (0.1-1.2) 08/12/19 17:14 AST 24 units/L (5-40) 08/12/19 17:14 ALT 14 units/L (7-56) 08/12/19 17:14 Alkaline Phosphatase 78 units/L (35-129) 08/12/19 17:14 Ammonia 46.0 umol/L (25-60) 08/12/19 17:14 Total Creatine Kinase 25 units/L (30-135) L 08/13/19 05:03 CK-MB (CK-2) 3.5 ng/mL (0.0-4.0) 08/13/19 05:03 CK-MB (CK-2) Rel Index 14.0 (0-4) H 08/13/19 05:03 Troponin T 0.118 ng/mL (0.00-0.029) H* 08/13/19 05:03 Total Protein 6.4 g/dL (6.3-8.2) 08/12/19 17:14 Albumin 3.4 g/dL (3.9-5) L 08/12/19 17:14 Albumin/Globulin Ratio 1.1 % 08/12/19 17:14 Triglycerides 73 mg/dL (2-149) 08/12/19 17:14 Cholesterol 108 mg/dL (50-199) 08/12/19 17:14 LDL Cholesterol Direct 51 mg/dL (50-130) 08/12/19 17:14 HDL Cholesterol 51 mg/dL (40-59) 08/12/19 17:14 Cholesterol/HDL Ratio 2.11 % 08/12/19 17:14 TSH 2.430 mlU/mL (0.270-4.200) 08/12/19 17:15 Urine Color Yellow (Yellow) 08/12/19 17:19 Urine Turbidity Slightly-cloudy (Clear) 08/12/19 17:19 Urine pH 6.0 (5.0-7.0) 08/12/19 17:19 Ur Specific [place] 1.012 (1.003-1.030) 08/12/19 17:19 Urine Protein 100 mg/dl mg/dL (Negative) 08/12/19 17:19 Urine Glucose (UA) Neg mg/dL (Negative) 08/12/19 17:19 Urine Ketones Neg mg/dL (Negative) 08/12/19 17:19 Urine Blood Neg (Negative) 08/12/19 17:19 Urine Nitrite Neg (Negative) 08/12/19 17:19 Urine Bilirubin Neg (Negative) 08/12/19 17:19 Urine Urobilinogen 2.0 mg/dL (<2.0) 08/12/19 17:19 Ur Leukocyte Esterase Neg (Negative) 08/12/19 17:19 Urine WBC (Auto) 2.0 /HPF (0.0-6.0) 08/12/19 17:19 Urine RBC (Auto) 1.0 /HPF (0.0-6.0) 08/12/19 17:19 U Epithel Cells (Auto) 12.0 /HPF (0-13.0) 08/12/19 17:19 Urine Bacteria (Auto) 1+ /HPF (Negative) 08/12/19 17:19 Salicylates < 0.3 mg/dL (2.8-20.0) L 08/12/19 17:15 Urine Opiates Screen Presumptive negative 08/12/19 17:19 Urine Methadone Screen Presumptive negative 08/12/19 17:19 Acetaminophen < 5.0 ug/mL (10.0-30.0) L 08/12/19 17:14 Ur Barbiturates Screen Presumptive negative 08/12/19 17:19 Ur Phencyclidine Scrn Presumptive negative 08/12/19 17:19 Ur Amphetamines Screen Presumptive negative 08/12/19 17:19 U Benzodiazepines Scrn Presumptive negative 08/12/19 17:19 Urine Cocaine Screen Presumptive negative 08/12/19 17:19 U Marijuana (THC) Screen Presumptive negative 08/12/19 17:19 Drugs of Abuse Note Disclamer 08/12/19 17:19 Plasma/Serum Alcohol < 0.01 % (0-0.07) 08/12/19 17:15 Hepatitis A IgM Ab Non-reactive (NonReactive) 08/13/19 15:05 Hep Bs Antigen Non-reactive (Negative) 08/13/19 15:05 Hep B Core IgM Ab Non-reactive (NonReactive) 08/13/19 15:05 Hepatitis C Antibody Reactive (NonReactive) A 08/13/19 15:05 Blood Type A POSITIVE 08/12/19 17:00 Antibody Screen Negative 08/12/19 17:00 Active Medications - Current Medications Current Medications: Generic Name Dose Route Start Last Admin Trade Name Freq PRN Reason Stop Dose Admin Acetaminophen 650 mg 08/12/19 23:24 Tylenol PO Q4H PRN Pain MILD(1-3)/Fever >100.5/VERDE Amlodipine Besylate 10 mg 08/13/19 10:00 08/13/19 10:52 Amlodipine PO 10 mg QDAY BUTCH Administration Dextrose 50 ml 08/13/19 01:03 D50w (25gm) Syringe IV Q30MIN PRN Hypoglycemia Protocol Hydralazine HCl 100 mg 08/13/19 09:14 08/14/19 00:06 Apresoline PO Not Given TID BUTCH Hydralazine HCl 10 mg 08/13/19 09:15 Apresoline IV Q4HR PRN Blood Pressure Levetiracetam 750 mg/ Dextrose 107.5 mls @ 400 mls/hr 08/13/19 03:00 08/14/19 02:42 IV 400 mls/hr Q12H BUTCH Administration Dextrose/Sodium Chloride 1,000 mls @ 42 mls/hr 08/13/19 13:00 D5ns IV DIRECT BUTCH Sodium Chloride 100 mls @ 999 mls/hr 08/13/19 13:21 Nacl 0.9% IV ALANA PRN Hypotension Insulin Human Lispro 0 unit 08/14/19 03:00 08/14/19 11:14 Humalog SUB-Q 3 unit ACHS BUTCH Administration Protocol Lorazepam 1 mg 08/12/19 23:26 Ativan IV Q4H PRN Seizures Ondansetron HCl 4 mg 08/12/19 23:24 Zofran IV Q8H PRN Nausea And Vomiting Sodium Chloride 10 ml 08/13/19 10:00 08/14/19 02:42 Sodium Chloride Flush Syringe 10 Ml IV 10 ml BID BUTCH Administration Sodium Chloride 10 ml 08/12/19 23:24 Sodium Chloride Flush Syringe 10 Ml IV PRN PRN LINE FLUSH Nutrition/Malnutrition Assess - Dietary Evaluation Nutrition/Malnutrition Findings: Nutrition Notes Start: 08/13/19 12:15 Freq: Status: Active Protocol: Document 08/14/19 09:05 LP (Rec: 08/14/19 09:05 LP [id number]) Nutrition Notes Initial or Follow up Brief Note Subjective/Other Information Pt NPO. Nutrition Intervention Follow-Up By: 08/16/19 Additional Comments Follow for assessment
--- NOTE | 2019-08-14 13:22 | Progress Note ---
Assessment and Plan Impression * End-stage renal disease on maintenance hemodialysis * AMS * Hypertension * Type II diabetes mellitus * History of seizure disorder * Hepatitis C * Thrombocytopenia Recommendations * Continue hemodialysis MWF schedule as outpatient * UF as tolerated * Avoid nephrotoxins * seizure management per primary team * Adjust diet and meds for ESRD state * No IV, BP or venipuncture and her access arm * Epogen per protocol Subjective Date of service: 08/14/19 Principal diagnosis: esrd, post ictal state Interval history: resting in bed, no verbal today Objective - Exam Narrative Exam: - General Limitations: Altered Mental Status, Physical Limitation General appearance: alert, other (patient initially listless, responsive to painful stimuli, now awake, smiling, in no acute distress, following commands) - Head Head exam: Present: atraumatic, normocephalic - Eye Eye exam: Present: normal appearance, PERRL - ENT ENT exam: Present: normal orophraynx, mucous membranes moist, normal external ear exam - Neck Neck exam: Present: normal inspection, full ROM. Absent: tenderness, meningismus - Respiratory Respiratory exam: Present: wheezes, rales, rhonchi, stridor, decreased breath sounds. Absent: respiratory distress - Cardiovascular Cardiovascular Exam: Present: normal rhythm, bradycardia, systolic murmur, JVD. Absent: irregular rhythm, diastolic murmur, rubs, gallop - GI/Abdominal GI/Abdominal exam: Present: soft. Absent: distended, tenderness, guarding, rebound, rigid, pulsatile mass - Extremities Exam Extremities exam: Present: normal inspection (patient withdraws 4 extremities to painful stimuli. 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 There is no long bone tenderness. Musculoskeletal compartments are soft. The pelvis is stable.). Absent: calf tenderness - Back Exam Back exam: Present: normal inspection. Absent: tenderness, CVA tenderness (R), CVA tenderness (L), paraspinal tenderness, vertebral tenderness - Neurological Exam Neurological exam: Present: altered, other (there is no facial droop. The patient follows commands. Withdraws 4 extremities to painful stimuli. Detailed neurologic examination not possible secondary to altered mental status advanced age, question postictal state) - Skin Skin exam: Present: warm, dry, intact, normal color. Absent: rash - Vital Signs Vital signs: Vital Signs - 12hr 08/14/19 08/14/19 08/14/19 01:55 08:08 08:50 Temperature 98.3 F 100.2 F H Pulse Rate 98 H 96 H Respiratory 20 22 Rate Blood Pressure 121/54 148/51 O2 Sat by Pulse 100 100 97 Oximetry - Lab 08/13/19 02:15 08/14/19 05:51 Most recent lab results Calcium TNR 08/14/19 05:51 Medications & Allergies - Medications Allergies/Adverse Reactions: Allergies No Known Allergies Allergy (Unverified 02/02/18 15:43) Home Medications: Home Medications Medication Instructions Recorded Confirmed Last Taken Type Aspirin 81 mg PO DAILY 08/13/18 10/24/18 08/11/18 History Baclofen 10 mg PO TID 08/13/18 10/24/18 08/11/18 History Tizanidine HCl [Zanaflex 4mg CAP] 4 mg PO TID 08/13/18 10/24/18 08/11/18 History amLODIPine 10 mg PO DAILY 08/13/18 10/24/18 08/11/18 History Lacosamide [Vimpat] 50 mg PO Q12HR #60 tablet 08/18/18 10/24/18 Unknown Rx Acetaminophen [Acetaminophen TAB] 650 mg PO Q4H PRN tablet 09/02/18 10/24/18 Unknown Rx Aspirin [Aspirin BABY CHEW TAB] 81 mg PO DAILY tab.chew 09/02/18 10/24/18 Unknown Rx Famotidine [Pepcid] 10 mg PO BID tablet 09/02/18 10/24/18 Unknown Rx Lispro Insulin [HumaLOG] 0 unit SUB-Q ACHS units 09/02/18 10/24/18 Unknown Rx Gabapentin 100 mg PO Q12H #60 capsule 10/15/18 10/24/18 Unknown Rx ISOSORBIDE MONOnitrate [Imdur ER] 60 mg PO DAILY tablet 10/15/18 10/24/18 Unknown Rx Insulin Regular, Human [HumuLIN R] 0 units SUB-Q QHS units 10/15/18 10/24/18 Unknown Rx Lisinopril [Zestril TAB] 40 mg PO DAILY tablet 10/15/18 10/24/18 Unknown Rx carvediloL [Coreg] 12.5 mg PO BID tablet 10/15/18 10/24/18 Unknown Rx cloNIDine [Catapres] 0.2 mg PO BID tablet 10/15/18 10/24/18 Unknown Rx Losartan [Cozaar] 50 mg PO QDAY #30 tablet 11/01/18 Unknown Rx levETIRAcetam [Keppra TAB] 750 mg PO BID #60 tablet 11/01/18 Unknown Rx oxyCODONE /ACETAMINOPHEN [Percocet 1 tab PO Q6H PRN #12 tablet 11/01/18 Unknown Rx 5/325 mg] Active Medications: Generic Name Dose Route Start Last Admin Trade Name Freq PRN Reason Stop Dose Admin Acetaminophen 650 mg 08/12/19 23:24 Tylenol PO Q4H PRN Pain MILD(1-3)/Fever >100.5/VERDE Amlodipine Besylate 10 mg 08/13/19 10:00 08/13/19 10:52 Amlodipine PO 10 mg QDAY BUTCH Administration Dextrose 50 ml 08/13/19 01:03 D50w (25gm) Syringe IV Q30MIN PRN Hypoglycemia Protocol Hydralazine HCl 100 mg 08/13/19 09:14 08/14/19 00:06 Apresoline PO Not Given TID BUTCH Hydralazine HCl 10 mg 08/13/19 09:15 Apresoline IV Q4HR PRN Blood Pressure Levetiracetam 750 mg/ Dextrose 107.5 mls @ 400 mls/hr 08/13/19 03:00 08/14/19 02:42 IV 400 mls/hr Q12H BUTCH Administration Dextrose/Sodium Chloride 1,000 mls @ 42 mls/hr 08/13/19 13:00 D5ns IV DIRECT BUTCH Sodium Chloride 100 mls @ 999 mls/hr 08/13/19 13:21 Nacl 0.9% IV ALANA PRN Hypotension Insulin Human Lispro 0 unit 08/14/19 03:00 08/14/19 11:14 Humalog SUB-Q 3 unit ACHS BUTCH Administration Protocol Lorazepam 1 mg 08/12/19 23:26 Ativan IV Q4H PRN Seizures Ondansetron HCl 4 mg 08/12/19 23:24 Zofran IV Q8H PRN Nausea And Vomiting Sodium Chloride 10 ml 08/13/19 10:00 08/14/19 02:42 Sodium Chloride Flush Syringe 10 Ml IV 10 ml BID BUTCH Administration Sodium Chloride 10 ml 08/12/19 23:24 Sodium Chloride Flush Syringe 10 Ml IV PRN PRN LINE FLUSH
--- NOTE | 2019-08-14 16:29 | Progress Note ---
Subjective Date of service: 08/14/19 Principal diagnosis: esrd, post ictal state Interval history: suspect seizure will get EEG the CT is showing only age appropriate changes nothing acute minimal atrophy Objective - Vital Sign Vital Signs - 12hr 08/14/19 08/14/19 08/14/19 08:08 08:50 13:00 Temperature 100.2 F H Pulse Rate 96 H Respiratory 22 20 Rate Blood Pressure 148/51 O2 Sat by Pulse 100 97 Oximetry 08/14/19 14:31 Temperature 98.6 F Pulse Rate 82 Respiratory 20 Rate Blood Pressure 182/50 O2 Sat by Pulse 96 Oximetry - Laboratory Findings CBC and BMP: 08/13/19 02:15 08/14/19 05:51 Abnormal Lab Findings: Abnormal Labs 08/12/19 08/12/19 08/12/19 16:46 17:14 17:14 RDW 16.9 H Plt Count 86 L Lymph % (Auto) 12.8 L [place] % (Auto) 12.1 H Lymph # 0.8 L Seg Neutrophils % 73.1 H POC ABG pCO2 POC ABG pO2 Potassium 5.3 H BUN 35 H Creatinine 5.1 H Glucose 126 H POC Glucose 137 H Total Creatine Kinase CK-MB (CK-2) Rel Index Troponin T 0.102 H* Albumin 3.4 L Salicylates Acetaminophen Hepatitis C Antibody 08/12/19 08/12/19 08/13/19 17:14 17:15 01:33 RDW Plt Count Lymph % (Auto) [place] % (Auto) Lymph # Seg Neutrophils % POC ABG pCO2 POC ABG pO2 Potassium BUN Creatinine Glucose POC Glucose Total Creatine Kinase 23 L CK-MB (CK-2) Rel Index 16.0 H Troponin T 0.115 H* Albumin Salicylates < 0.3 L Acetaminophen < 5.0 L Hepatitis C Antibody 08/13/19 08/13/19 08/13/19 02:15 02:15 05:03 RDW 17.0 H Plt Count 93 L Lymph % (Auto) [place] % (Auto) 10.5 H Lymph # 0.9 L Seg Neutrophils % 72.4 H POC ABG pCO2 POC ABG pO2 Potassium 5.6 H BUN 38 H Creatinine 5.6 H Glucose 121 H POC Glucose Total Creatine Kinase 25 L CK-MB (CK-2) Rel Index 14.0 H Troponin T 0.118 H* Albumin Salicylates Acetaminophen Hepatitis C Antibody 08/13/19 08/13/19 08/13/19 15:05 16:52 22:24 RDW Plt Count Lymph % (Auto) [place] % (Auto) Lymph # Seg Neutrophils % POC ABG pCO2 POC ABG pO2 Potassium BUN Creatinine Glucose POC Glucose 148 H 191 H Total Creatine Kinase CK-MB (CK-2) Rel Index Troponin T Albumin Salicylates Acetaminophen Hepatitis C Antibody Reactive A 08/13/19 08/14/19 08/14/19 22:54 02:39 06:15 RDW Plt Count Lymph % (Auto) [place] % (Auto) Lymph # Seg Neutrophils % POC ABG pCO2 48.8 H POC ABG pO2 62 L Potassium BUN Creatinine Glucose POC Glucose 276 H 182 H Total Creatine Kinase CK-MB (CK-2) Rel Index Troponin T Albumin Salicylates Acetaminophen Hepatitis C Antibody 08/14/19 09:52 RDW Plt Count Lymph % (Auto) [place] % (Auto) Lymph # Seg Neutrophils % POC ABG pCO2 POC ABG pO2 Potassium BUN Creatinine Glucose POC Glucose 202 H Total Creatine Kinase CK-MB (CK-2) Rel Index Troponin T Albumin Salicylates Acetaminophen Hepatitis C Antibody
--- NOTE | 2019-08-14 16:35 | Consultation ---
History of Present Illness Consult date: 08/14/19 Requesting physician: KIRT MENDEZ Consult reason: elevated troponin History of present illness: Ms. Tyson is an 79 y/o female with a medical history significant for seizures, ?CHF, ESRD on HD, hypertension, type 2 diabetes and pulmonary hypertension who presented to the ED with AMS and reported seizure- like activity. She is known to our practice from a prior hospitalization. The patient is a poor historian at this time and thus, HPI obtained from the EMR. It is unclear how long the episodes lasted or their frequency. Her troponins were elevated to 0.102, 0.115 and 0.118. It is unclear if she experienced any chest pain. EKG NAF. On examination this afternoon, she is obtunded and responds to voice and pain by opening her eyes. She does not follow commands or respond to questions. An echocardiogram in July 2019 found an EF of 65 to70 percent, LVH, mild to moderate TR, mild to moderate MR, severe pulmonary hypertension with RVSP of 83. A Lexiscan stress test in July 2018 was negative. Past History Past Medical History: diabetes, dialysis, ESRD, heart failure (possible), hypertension, seizures, other (?dementia) Medications and Allergies Allergies Allergy/AdvReac Type Severity Reaction Status Date / Time No Known Allergies Allergy Unverified 02/02/18 15:43 Home Medications Medication Instructions Recorded Confirmed Last Taken Type Aspirin 81 mg PO DAILY 08/13/18 10/24/18 08/11/18 History Baclofen 10 mg PO TID 08/13/18 10/24/18 08/11/18 History Tizanidine HCl [Zanaflex 4mg CAP] 4 mg PO TID 08/13/18 10/24/18 08/11/18 History amLODIPine 10 mg PO DAILY 08/13/18 10/24/18 08/11/18 History Lacosamide [Vimpat] 50 mg PO Q12HR #60 tablet 08/18/18 10/24/18 Unknown Rx Acetaminophen [Acetaminophen TAB] 650 mg PO Q4H PRN tablet 09/02/18 10/24/18 Unknown Rx Aspirin [Aspirin BABY CHEW TAB] 81 mg PO DAILY tab.chew 09/02/18 10/24/18 Unknown Rx Famotidine [Pepcid] 10 mg PO BID tablet 09/02/18 10/24/18 Unknown Rx Lispro Insulin [HumaLOG] 0 unit SUB-Q ACHS units 09/02/18 10/24/18 Unknown Rx Gabapentin 100 mg PO Q12H #60 capsule 10/15/18 10/24/18 Unknown Rx ISOSORBIDE MONOnitrate [Imdur ER] 60 mg PO DAILY tablet 10/15/18 10/24/18 Unknown Rx Insulin Regular, Human [HumuLIN R] 0 units SUB-Q QHS units 10/15/18 10/24/18 Unknown Rx Lisinopril [Zestril TAB] 40 mg PO DAILY tablet 10/15/18 10/24/18 Unknown Rx carvediloL [Coreg] 12.5 mg PO BID tablet 10/15/18 10/24/18 Unknown Rx cloNIDine [Catapres] 0.2 mg PO BID tablet 10/15/18 10/24/18 Unknown Rx Losartan [Cozaar] 50 mg PO QDAY #30 tablet 11/01/18 Unknown Rx levETIRAcetam [Keppra TAB] 750 mg PO BID #60 tablet 11/01/18 Unknown Rx oxyCODONE /ACETAMINOPHEN [Percocet 1 tab PO Q6H PRN #12 tablet 11/01/18 Unknown Rx 5/325 mg] Active Meds: Active Medications Acetaminophen (Tylenol) 650 mg PO Q4H PRN PRN Reason: Pain MILD(1-3)/Fever >100.5/VERDE Amlodipine Besylate (Amlodipine) 10 mg PO QDAY [facility] Last Admin: 08/13/19 10:52 Dose: 10 mg Documented by: Dextrose (D50w (25gm) Syringe) 50 ml IV Q30MIN PRN; Protocol PRN Reason: Hypoglycemia Hydralazine HCl (Apresoline) 100 mg PO TID [facility] Last Admin: 08/14/19 00:06 Dose: Not Given Documented by: Hydralazine HCl (Apresoline) 10 mg IV Q4HR PRN PRN Reason: Blood Pressure Levetiracetam 750 mg/ Dextrose 107.5 mls @ 400 mls/hr IV Q12H [facility] Last Admin: 08/14/19 02:42 Dose: 400 mls/hr Documented by: Dextrose/Sodium Chloride (D5ns) 1,000 mls @ 42 mls/hr IV DIRECT [facility] Sodium Chloride (Nacl 0.9%) 100 mls @ 999 mls/hr IV ALANA PRN PRN Reason: Hypotension Insulin Human Lispro (Humalog) 0 unit SUB-Q ACHS [facility]; Protocol Last Admin: 08/14/19 11:14 Dose: 3 unit Documented by: Lorazepam (Ativan) 1 mg IV Q4H PRN PRN Reason: Seizures Ondansetron HCl (Zofran) 4 mg IV Q8H PRN PRN Reason: Nausea And Vomiting Sodium Chloride (Sodium Chloride Flush Syringe 10 Ml) 10 ml IV BID [facility] Last Admin: 08/14/19 02:42 Dose: 10 ml Documented by: Sodium Chloride (Sodium Chloride Flush Syringe 10 Ml) 10 ml IV PRN PRN PRN Reason: LINE FLUSH Review of Systems ROS unobtainable: due to mental status Physical Examination Last Vital Signs Temp 98.6 F 08/14/19 14:31 Pulse 82 08/14/19 14:31 Resp 20 08/14/19 14:31 BP 182/50 08/14/19 14:31 Pulse Ox 96 08/14/19 14:31 General appearance: no acute distress HEENT: Positive: PERRL Neck: Positive: neck supple Cardiac: Positive: Reg Rate and Rhythm Lungs: Positive: Normal Exam Neuro: Positive: Other (DORENE - obtunded ) Abdomen: Positive: Unremarkable Female genitourinary: deferred Skin: Positive: Clear Musculoskeletal: other (DORENE) Extremities: Present: normal Results 08/13/19 02:15 08/14/19 05:51 Comprehensive Metabolic Panel 08/14/19 Range/Units 05:51 Sodium TNR Potassium TNR Chloride TNR Carbon Dioxide TNR BUN TNR Creatinine TNR Glucose TNR Calcium TNR - Imaging and Cardiology Echo: report reviewed (07/2019: EF of 65-70%, LVH, mild to mod MR, mild to mod TR, severe pulmonary htn) - EKG Interpretation EKG: sinus rhythm EKG interpretations - Telemetry EKG Rhythm: Sinus Bradycardia Chamber hypertrophy or enlargement: left ventricular hypertro Assessment and Plan Ms. Tyson is an 79 y/o female admitted with AMS and seizure-like activity. Her troponin elevation is c/w NSTEMI type II. Neurology recommendations noted. Continue current cardiac management. The patient has been seen in conjunction with Dr. Sumner, who agrees with the assessment and plan. - Patient Problems (1) NSTEMI (non-ST elevated myocardial infarction) Current Visit: Yes Status: Acute Plan to address problem: Type II (2) Altered mental state Current Visit: Yes Status: Acute (3) ESRD (end stage renal disease) on dialysis Current Visit: Yes Status: Chronic (4) Seizure Current Visit: Yes Status: Acute (5) Hypertension Current Visit: No Status: Chronic Qualifiers: (6) Pulmonary hypertension Current Visit: No Status: Chronic (7) T2DM (type 2 diabetes mellitus) Current Visit: No Status: Chronic Qualifiers: Diabetes mellitus [employer] insulin use: without [employer] manager use
[2019-08-14 17:47] LABS: BUN/Creatinine Ratio 8; Blood Urea Nitrogen 38 mg/dL (7-17); Calcium 8.7 mg/dL (8.4-10.2); Hemolysis Index 189
[2019-08-14 17:48] LABS: Hematocrit 38.7 % (30.3-42.9); Hemoglobin 12.6 gm/dl (10.1-14.3); Mean Corpuscular HGB Conc 33 % (30-34); Mean Corpuscular Volume 90 fl (79-97); Platelet Count 125 K/mm3 (140-440); Red Cell Distribution Width 17.4 % (13.2-15.2)
[2019-08-15] MEDS: levETIRAcetam 750 MG in DEXTROSE 5% IN WATER 100 ML IV SCH ×4 (03:17→21:07)
[2019-08-15] MEDS: hydrALAZINE 20 MG/1 ML INJ IV PRN (04:30)
[2019-08-15 05:38] LABS: Calcium 8.5 mg/dL (8.4-10.2)
[2019-08-15] MEDS ORDERED: INSULIN REGULAR, HUMAN 100 UNITS/1 ML SUB-Q ONE (05:55)
[2019-08-15] MEDS ORDERED: CALCIUM GLUCONATE 1,000 MG in SODIUM CHLORIDE 0.9% 100 ML IV ONE (05:56)
[2019-08-15] MEDS ORDERED: DEXTROSE 50% IN WATER (25GM) 50 ML SYRINGE IV ONE (05:57)
--- NOTE | 2019-08-15 06:01 | Event Note ---
Date: 08/15/19 potassium 6.1 this am. hyperkalemic cocktail given. follow up repeat potassium labs.
[2019-08-15] MEDS: amLODIPine 10 MG TAB PO SCH ×3 (09:44→22:23)
[2019-08-15] MEDS: hydrALAZINE 100 MG TAB PO SCH ×5 (09:44→22:24)
--- NOTE | 2019-08-15 09:47 | Progress Note ---
Assessment and Plan Impression * End-stage renal disease on maintenance hemodialysis * AMS * Hypertension * Type II diabetes mellitus * History of seizure disorder * Hepatitis C * Thrombocytopenia Recommendations * Continue hemodialysis MWF, due today * UF as tolerated * BP reasonable, continue current regimen * Hemoglobin at goal, no need for MERVAT * Avoid nephrotoxins * seizure management per primary team/neurology * Adjust diet and meds for ESRD state * No IV, BP or venipuncture and her access arm * Cardiology recommendations reviewed Subjective Date of service: 08/15/19 Principal diagnosis: esrd, post ictal state Interval history: No acute events noted; remains minimally responsive. Objective - Exam Narrative Exam: General appearance: alert but drowsy, responsive to verbal and tactile stimuli, in no acute distress, nonverbal Head: atraumatic, normocephalic Eye: normal appearance, PERRL ENT: mucous membranes moist Neck:normal ROM Respiratory: decreased breath sounds, on facemask 8L Cardiovascular: normal rhythm, noted systolic murmur GI/Abdominal: soft. nondistended, no tenderness Extremities: upper extremity AV fistula with no redness, pus or streaking) Back: normal inspection Neurological altered, withdraws 4 extremities to painful stimuli Skin: warm, dry, intact - Vital Signs Vital signs: Vital Signs - 12hr 08/14/19 08/15/19 08/15/19 23:36 00:15 03:07 Temperature 101.8 F H Pulse Rate 117 H 107 H Respiratory 35 H 22 Rate Blood Pressure 185/61 O2 Sat by Pulse 93 93 100 Oximetry 08/15/19 08/15/19 08/15/19 04:00 04:30 08:09 Temperature 97.2 F L 99.6 F Pulse Rate 107 H 82 Respiratory 14 Rate Blood Pressure 185/61 156/50 O2 Sat by Pulse 100 Oximetry 08/15/19 08:55 Temperature Pulse Rate Respiratory Rate Blood Pressure O2 Sat by Pulse 100 Oximetry - Lab 08/14/19 17:09 08/15/19 04:57 Most recent lab results Calcium 8.5 mg/dL (8.4-10.2) 08/15/19 04:57 Medications & Allergies - Medications Allergies/Adverse Reactions: Allergies No Known Allergies Allergy (Unverified 02/02/18 15:43) Home Medications: Home Medications Medication Instructions Recorded Confirmed Last Taken Type Aspirin 81 mg PO DAILY 08/13/18 10/24/18 08/11/18 History Baclofen 10 mg PO TID 08/13/18 10/24/18 08/11/18 History Tizanidine HCl [Zanaflex 4mg CAP] 4 mg PO TID 08/13/18 10/24/18 08/11/18 History amLODIPine 10 mg PO DAILY 08/13/18 10/24/18 08/11/18 History Lacosamide [Vimpat] 50 mg PO Q12HR #60 tablet 08/18/18 10/24/18 Unknown Rx Acetaminophen [Acetaminophen TAB] 650 mg PO Q4H PRN tablet 09/02/18 10/24/18 Unknown Rx Aspirin [Aspirin BABY CHEW TAB] 81 mg PO DAILY tab.chew 09/02/18 10/24/18 Unknown Rx Famotidine [Pepcid] 10 mg PO BID tablet 09/02/18 10/24/18 Unknown Rx Lispro Insulin [HumaLOG] 0 unit SUB-Q ACHS units 09/02/18 10/24/18 Unknown Rx Gabapentin 100 mg PO Q12H #60 capsule 10/15/18 10/24/18 Unknown Rx ISOSORBIDE MONOnitrate [Imdur ER] 60 mg PO DAILY tablet 10/15/18 10/24/18 Unknown Rx Insulin Regular, Human [HumuLIN R] 0 units SUB-Q QHS units 10/15/18 10/24/18 Unknown Rx Lisinopril [Zestril TAB] 40 mg PO DAILY tablet 10/15/18 10/24/18 Unknown Rx carvediloL [Coreg] 12.5 mg PO BID tablet 10/15/18 10/24/18 Unknown Rx cloNIDine [Catapres] 0.2 mg PO BID tablet 10/15/18 10/24/18 Unknown Rx Losartan [Cozaar] 50 mg PO QDAY #30 tablet 11/01/18 Unknown Rx levETIRAcetam [Keppra TAB] 750 mg PO BID #60 tablet 11/01/18 Unknown Rx oxyCODONE /ACETAMINOPHEN [Percocet 1 tab PO Q6H PRN #12 tablet 11/01/18 Unknown Rx 5/325 mg] Active Medications: Generic Name Dose Route Start Last Admin Trade Name Freq PRN Reason Stop Dose Admin Acetaminophen 650 mg 08/12/19 23:24 Tylenol PO Q4H PRN Pain MILD(1-3)/Fever >100.5/VERDE Amlodipine Besylate 10 mg 08/13/19 10:00 08/15/19 09:44 Amlodipine PO Not Given QDAY BUTCH Dextrose 50 ml 08/13/19 01:03 D50w (25gm) Syringe IV Q30MIN PRN Hypoglycemia Protocol Hydralazine HCl 100 mg 08/13/19 09:14 08/15/19 09:44 Apresoline PO Not Given TID BUTCH Hydralazine HCl 10 mg 08/13/19 09:15 08/15/19 04:30 Apresoline IV 10 mg Q4HR PRN Administration Blood Pressure Levetiracetam 750 mg/ Dextrose 107.5 mls @ 400 mls/hr 08/13/19 03:00 08/15/19 03:17 IV 400 mls/hr Q12H BUTCH Administration Dextrose/Sodium Chloride 1,000 mls @ 42 mls/hr 08/13/19 13:00 D5ns IV DIRECT BUTCH Sodium Chloride 100 mls @ 999 mls/hr 08/13/19 13:21 Nacl 0.9% IV ALANA PRN Hypotension Insulin Human Lispro 0 unit 08/14/19 03:00 08/14/19 22:43 Humalog SUB-Q Not Given ACHS [facility] Protocol Lorazepam 1 mg 08/12/19 23:26 Ativan IV Q4H PRN Seizures Ondansetron HCl 4 mg 08/12/19 23:24 Zofran IV Q8H PRN Nausea And Vomiting Sodium Chloride 10 ml 08/13/19 10:00 08/15/19 09:45 Sodium Chloride Flush Syringe 10 Ml IV 10 ml BID BUTCH Administration Sodium Chloride 10 ml 08/12/19 23:24 Sodium Chloride Flush Syringe 10 Ml IV PRN PRN LINE FLUSH
[2019-08-15] MEDS: INSULIN LISPRO 100 UNIT/ML SUB-Q SCH ×5 (09:51→22:24)
--- NOTE | 2019-08-15 10:12 | Progress Note ---
Assessment and Plan Ms. Tyson is an 79 y/o female admitted with AMS and seizure-like activity. Her troponin elevation is c/w NSTEMI type II. Neurology recommendations noted. Continue current cardiac management. Serum K+ 6.1 today. Electrolyte management per primary and nephrology teams. The patient has been seen in conjunction with Dr. Mayers who agrees with the assessment and plan of care. 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 on O2 via NRB. Objective Last Vital Signs Temp 99.6 F 08/15/19 08:09 Pulse 82 08/15/19 08:09 Resp 14 08/15/19 08:09 BP 156/50 08/15/19 08:09 Pulse Ox 100 08/15/19 08:55 - Physical Examination General: Other (withdrawn, nonverbal) HEENT: Positive: PERRL Neck: Positive: neck supple Cardiac: Positive: Reg Rate and Rhythm, S1/S2 Lungs: Positive: Decreased Breath Sounds, Oxygen Neuro: Positive: Other (nonverbal) Abdomen: Positive: Unremarkable Skin: Positive: Clear Extremities: Present: normal - Labs and Meds CBC 08/14/19 Range/Units 17:09 WBC 20.0 H (4.5-11.0) K/mm3 RBC 4.30 (3.65-5.03) M/mm3 Hgb 12.6 (10.1-14.3) gm/dl Hct 38.7 (30.3-42.9) % Plt Count 125 L (140-440) K/mm3 Lymph # Modeling And Simulation Analyst [place] # Modeling And Simulation Analyst Eos # Modeling And Simulation Analyst Baso # Modeling And Simulation Analyst Comprehensive Metabolic Panel 08/14/19 08/15/19 Range/Units 17:09 04:57 Sodium 133 L 141 D (137-145) mmol/L Potassium TNR 6.1 H* Chloride 97.4 L 99.6 (98-107) mmol/L Carbon Dioxide 19 L 23 (22-30) mmol/L BUN 38 H 48 H (7-17) mg/dL Creatinine 4.6 H 5.6 H (0.7-1.2) mg/dL Glucose 127 H 171 H (65-100) mg/dL Calcium 8.7 8.5 (8.4-10.2) mg/dL - Imaging and Cardiology Echo: report reviewed (07/2019: EF of 65-70%, LVH, mild to mod MR, mild to mod TR, severe pulmonary htn) Chamber hypertrophy or enlargement: left ventricular hypertro
[2019-08-15] MEDS ORDERED: SIMPLE SYRUP 15 ML FEEDTUBE PRN ×2 (12:14)
[2019-08-15] MEDS ORDERED: LIPASE 10,500/PROTEASE 25,000/AMYLASE 43,750 (UNITS) DR CAP FEEDTUBE PRN (12:14)
[2019-08-15] MEDS ORDERED: SODIUM BICARBONATE 325 MG TAB FEEDTUBE PRN (12:14)
--- NOTE | 2019-08-15 16:49 | Progress Note ---
Assessment and Plan Assessment and plan: 79-year-old woman who presents to the hospital for reported seizures and altered mental status. Her family called 911 after they witnessed her having seizures. Unfortunately we do not have documentation of what the seizures actually looks like but apparently patient was unconscious and had some form of abnormal movements. Past medical history: Hypertension, end-stage renal disease on hemodialysis, seizures, heart disease, hepatitis C, question dementia Acute metabolic encephalopathy improving, more arousable, place NGT for now to give meds and nutrition Status epilepticus cont aeds, MR brain pending , neurology consult ESRD, hyperkalemia medically rx, cont HD Hypertension cont bp meds Diabetes cont SSI elevated troponin likely Type 2 CO, given seizures severe pulm htn, meds optimized per cardiology cardiology input appreciated, EF 65 AOCD stable History Interval history: Patient remains unarousable, she is not waking up Review of systems Constitutional: No fevers, no malaise, no joint pains CVS: No chest pain, no orthopnea, no pedal edema GI: No abdominal pain, no diarrhea, no vomiting, no constipation Respiratory: , no wheezing, no coughing Hospitalist Physical - Physical exam Narrative exam: General.: Appears well, no distress, nontoxic HEENT: Moist mucous membranes, extraocular muscles intact, no lymphadenopathy Neck: supple Cardiac: S1-S2 heard Lungs: clear to auscultation bilaterally Abdomen: soft , nontender, nondistended, bowel sounds positive Extremities: no edema clubbing or cyanosis Skin: no rash or lesions Neurologic: Patient is not arousable, does not obey commands, currently nonverbal Psych: Obtunded - Constitutional Vitals: Temp Pulse Resp BP Pulse Ox 100.3 F H 106 H 18 157/58 100 08/15/19 15:38 08/15/19 15:38 08/15/19 15:38 08/15/19 15:38 08/15/19 15:38 General appearance: Present: no acute distress Results - Labs CBC & Chem 7: 08/14/19 17:09 08/16/19 05:01 Labs: Laboratory Last Values WBC 20.0 K/mm3 (4.5-11.0) H 08/14/19 17:09 RBC 4.30 M/mm3 (3.65-5.03) 08/14/19 17:09 Hgb 12.6 gm/dl (10.1-14.3) 08/14/19 17:09 Hct 38.7 % (30.3-42.9) 08/14/19 17:09 MCV 90 fl (79-97) 08/14/19 17:09 MCH 29 pg (28-32) 08/14/19 17:09 MCHC 33 % (30-34) 08/14/19 17:09 RDW 17.4 % (13.2-15.2) H 08/14/19 17:09 Plt Count 125 K/mm3 (140-440) L 08/14/19 17:09 Lymph % (Auto) Product Marketing Executive 08/14/19 17:09 [place] % (Auto) Product Marketing Executive 08/14/19 17:09 Eos % (Auto) Product Marketing Executive 08/14/19 17:09 Baso % (Auto) Product Marketing Executive 08/14/19 17:09 Lymph # Product Marketing Executive 08/14/19 17:09 [place] # Product Marketing Executive 08/14/19 17:09 Eos # Product Marketing Executive 08/14/19 17:09 Baso # Product Marketing Executive 08/14/19 17:09 Seg Neutrophils % Product Marketing Executive 08/14/19 17:09 Seg Neutrophils # Product Marketing Executive 08/14/19 17:09 PT 12.3 Sec. (12.2-14.9) 08/12/19 17:14 INR 0.92 (0.87-1.13) 08/12/19 17:14 APTT 30.3 Sec. (24.2-36.6) 08/12/19 17:14 POC ABG pH 7.376 (7.35-7.45) 08/13/19 22:54 POC ABG pCO2 48.8 (35-45) H 08/13/19 22:54 POC ABG pO2 62 (80-105) L 08/13/19 22:54 POC ABG HCO3 28.6 (22-26 mml/L) 08/13/19 22:54 POC ABG Total CO2 30 (23-27mmol/L) 08/13/19 22:54 POC ABG O2 Sat 91 08/13/19 22:54 POC ABG Base Excess 3 ((-2) - (+3)mmol/L) 08/13/19 22:54 FiO2 100 % 08/13/19 22:54 Sodium 141 mmol/L (137-145) D 08/15/19 04:57 Potassium 4.0 mmol/L (3.6-5.0) D 08/15/19 15:28 Chloride 99.6 mmol/L (98-107) 08/15/19 04:57 Carbon Dioxide 23 mmol/L (22-30) 08/15/19 04:57 Anion Gap 25 mmol/L 08/15/19 04:57 BUN 48 mg/dL (7-17) H 08/15/19 04:57 Creatinine 5.6 mg/dL (0.7-1.2) H 08/15/19 04:57 Estimated GFR 9 ml/min 08/15/19 04:57 BUN/Creatinine Ratio 9 % 08/15/19 04:57 Glucose 171 mg/dL (65-100) H 08/15/19 04:57 POC Glucose 132 (70-105) H 08/15/19 16:54 Lactic Acid 1.20 mmol/L (0.7-2.0) 08/12/19 17:14 Calcium 8.5 mg/dL (8.4-10.2) 08/15/19 04:57 Total Bilirubin 0.60 mg/dL (0.1-1.2) 08/12/19 17:14 AST 24 units/L (5-40) 08/12/19 17:14 ALT 14 units/L (7-56) 08/12/19 17:14 Alkaline Phosphatase 78 units/L (35-129) 08/12/19 17:14 Ammonia 24.0 umol/L (25-60) L 08/14/19 17:09 Total Creatine Kinase 25 units/L (30-135) L 08/13/19 05:03 CK-MB (CK-2) 3.5 ng/mL (0.0-4.0) 08/13/19 05:03 CK-MB (CK-2) Rel Index 14.0 (0-4) H 08/13/19 05:03 Troponin T 0.118 ng/mL (0.00-0.029) H* 08/13/19 05:03 Total Protein 6.4 g/dL (6.3-8.2) 08/12/19 17:14 Albumin 3.4 g/dL (3.9-5) L 08/12/19 17:14 Albumin/Globulin Ratio 1.1 % 08/12/19 17:14 Triglycerides 73 mg/dL (2-149) 08/12/19 17:14 Cholesterol 108 mg/dL (50-199) 08/12/19 17:14 LDL Cholesterol Direct 51 mg/dL (50-130) 08/12/19 17:14 HDL Cholesterol 51 mg/dL (40-59) 08/12/19 17:14 Cholesterol/HDL Ratio 2.11 % 08/12/19 17:14 TSH 2.430 mlU/mL (0.270-4.200) 08/12/19 17:15 Urine Color Yellow (Yellow) 08/12/19 17:19 Urine Turbidity Slightly-cloudy (Clear) 08/12/19 17:19 Urine pH 6.0 (5.0-7.0) 08/12/19 17:19 Ur Specific [place] 1.012 (1.003-1.030) 08/12/19 17:19 Urine Protein 100 mg/dl mg/dL (Negative) 08/12/19 17:19 Urine Glucose (UA) Neg mg/dL (Negative) 08/12/19 17:19 Urine Ketones Neg mg/dL (Negative) 08/12/19 17:19 Urine Blood Neg (Negative) 08/12/19 17:19 Urine Nitrite Neg (Negative) 08/12/19 17:19 Urine Bilirubin Neg (Negative) 08/12/19 17:19 Urine Urobilinogen 2.0 mg/dL (<2.0) 08/12/19 17:19 Ur Leukocyte Esterase Neg (Negative) 08/12/19 17:19 Urine WBC (Auto) 2.0 /HPF (0.0-6.0) 08/12/19 17:19 Urine RBC (Auto) 1.0 /HPF (0.0-6.0) 08/12/19 17:19 U Epithel Cells (Auto) 12.0 /HPF (0-13.0) 08/12/19 17:19 Urine Bacteria (Auto) 1+ /HPF (Negative) 08/12/19 17:19 Salicylates < 0.3 mg/dL (2.8-20.0) L 08/12/19 17:15 Urine Opiates Screen Presumptive negative 08/12/19 17:19 Urine Methadone Screen Presumptive negative 08/12/19 17:19 Acetaminophen < 5.0 ug/mL (10.0-30.0) L 08/12/19 17:14 Ur Barbiturates Screen Presumptive negative 08/12/19 17:19 Ur Phencyclidine Scrn Presumptive negative 08/12/19 17:19 Ur Amphetamines Screen Presumptive negative 08/12/19 17:19 U Benzodiazepines Scrn Presumptive negative 08/12/19 17:19 Urine Cocaine Screen Presumptive negative 08/12/19 17:19 U Marijuana (THC) Screen Presumptive negative 08/12/19 17:19 Drugs of Abuse Note Disclamer 08/12/19 17:19 Plasma/Serum Alcohol < 0.01 % (0-0.07) 08/12/19 17:15 Hepatitis A IgM Ab Non-reactive (NonReactive) 08/13/19 15:05 Hep Bs Antigen Non-reactive (Negative) 08/13/19 15:05 Hep B Core IgM Ab Non-reactive (NonReactive) 08/13/19 15:05 Hepatitis C Antibody Reactive (NonReactive) A 08/13/19 15:05 Blood Type A POSITIVE 08/12/19 17:00 Antibody Screen Negative 08/12/19 17:00 Active Medications - Current Medications Current Medications: Generic Name Dose Route Start Last Admin Trade Name Freq PRN Reason Stop Dose Admin Acetaminophen 650 mg 08/12/19 23:24 Tylenol PO Q4H PRN Pain MILD(1-3)/Fever >100.5/VERDE Amlodipine Besylate 10 mg 08/13/19 10:00 08/15/19 09:44 Amlodipine PO Not Given QDAY BUTCH Lipase/Protease/Amylase 1 each 08/15/19 12:14 Pancreaze 10,500 Unit FEEDTUBE PRN PRN For Clogged Feeding Tube Dextrose 50 ml 08/13/19 01:03 D50w (25gm) Syringe IV Q30MIN PRN Hypoglycemia Protocol Hydralazine HCl 100 mg 08/13/19 09:14 08/15/19 16:46 Apresoline PO Not Given TID BUTCH Hydralazine HCl 10 mg 08/13/19 09:15 08/15/19 04:30 Apresoline IV 10 mg Q4HR PRN Administration Blood Pressure Levetiracetam 750 mg/ Dextrose 107.5 mls @ 400 mls/hr 08/13/19 03:00 08/15/19 15:38 IV 400 mls/hr Q12H BUTCH Administration Dextrose/Sodium Chloride 1,000 mls @ 42 mls/hr 08/13/19 13:00 D5ns IV DIRECT BUTCH Sodium Chloride 100 mls @ 999 mls/hr 08/13/19 13:21 Nacl 0.9% IV ALANA PRN Hypotension Insulin Human Lispro 0 unit 08/14/19 03:00 08/15/19 16:46 Humalog SUB-Q Not Given ACHS [facility] Protocol Lorazepam 1 mg 08/12/19 23:26 Ativan IV Q4H PRN Seizures Ondansetron HCl 4 mg 08/12/19 23:24 Zofran IV Q8H PRN Nausea And Vomiting Simple Syrup 15 ml 08/15/19 12:14 Simple Syrup FEEDTUBE PRN PRN Hypoglycemia Simple Syrup 30 ml 08/15/19 12:14 Simple Syrup FEEDTUBE PRN PRN Hypoglycemia Sodium Bicarbonate 325 mg 08/15/19 12:14 Sodium Bicarbonate FEEDTUBE PRN PRN For Clogged Feeding Tube Sodium Chloride 10 ml 08/13/19 10:00 08/15/19 16:48 Sodium Chloride Flush Syringe 10 Ml IV 10 ml BID BUTCH Administration Sodium Chloride 10 ml 08/12/19 23:24 Sodium Chloride Flush Syringe 10 Ml IV PRN PRN LINE FLUSH Nutrition/Malnutrition Assess - Dietary Evaluation Nutrition/Malnutrition Findings: Nutrition Notes Start: 08/13/19 12:15 Freq: Status: Active Protocol: Document 08/15/19 12:04 LP (Rec: 08/15/19 12:14 LP [id number]) Nutrition Notes Initial or Follow up Assessment Current Diagnosis CKD (stage V CKD),Diabetes, Hypertension,Heart Failure Other Pertinent Diagnosis on HD, AMS Current Diet NPO Labs/Tests K 6.1 BUN 48 Cr 5.6 BG 171 Pertinent Medications Reviewed Height 5 ft 5 in Weight 50.802 kg [place] Body Weight (kg) 56.81 BMI 18.6 Subjective/Other Information Consult for TF. Pt in dialysis at time of visit. 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 No Is Patient Ambulatory and/or Out of Bed No REE-([place]-St. Jeor-confined to bed) 1181.748 Kcal/Kg value to use for calculation 30 Approximate Energy Requirements Using 1524 kcal/Kg Calculation Used for Recommendations Kcal/kg Additional Notes Protein needs are > 61g (>1.2g /kg) Fluid needs are 1000-1500ml Nutrition Intervention Change Diet Order: TF Nutrition Support: Nepro at 35ml/hr Flush with 150ml q4h Kcal 1,512 Protein (gm) 68 Fluid (mL) 611 Goal #1 Meet at least 80% of kcal and protein needs via TF Anticipated Discharge Needs: Unable to determine at this time Follow-Up By: 08/17/19 Additional Comments Follow for TF start/tolerance
--- NOTE | 2019-08-15 17:39 | XRay Report ---
SUPINE ABDOMEN INDICATION: DOBBOFF PLACEMENT. COMPARISON: No relevant prior imaging study available. FINDINGS: Feeding tube passes into the stomach and is kinked in the gastric body. The tip is doubled back on it self in the gastric fundus near the cardia. IMPRESSION: 1. Feeding tube as above. Signer Name: Hu Pelayo MD Signed: 08/15/2019 5:34 PM Workstation Name: [id number]
[2019-08-15] MEDS: ACETAMINOPHEN 325 MG TAB PO PRN ×2 (18:13→22:24)
--- NOTE | 2019-08-15 19:40 | XRay Report ---
ABDOMEN 1 VIEW(S) INDICATION / CLINICAL INFORMATION: dobboff placement repeat kub. COMPARISON: Earlier the same day. FINDINGS: TUBES / LINES: Feeding tube kinked upon itself with the tip at the fundus. BOWEL GAS PATTERN: No significant abnormality. ADDITIONAL FINDINGS: No significant additional findings. Signer Name: Tobias Christie MD Signed: 08/15/2019 7:36 PM Workstation Name: [id number]
--- NOTE | 2019-08-16 00:01 | XRay Report ---
EXAMINATION: Abdominal radiograph, one view, 08/15/2019 at 1141 CLINICAL INFORMATION: Dobbhoff tube placement COMPARISON: Abdominal radiograph, 08/15/2019 at 7:03 PM FINDINGS: The distal end of a weighted feeding tube has now been repositioned with tip overlying the expected position of the mid stomach. Signer Name: Ama Lozano MD Signed: 08/15/2019 11:57 PM Workstation Name: [id number]
[2019-08-16] MEDS: levETIRAcetam 750 MG in DEXTROSE 5% IN WATER 100 ML IV SCH (02:25)
[2019-08-16 06:01] LABS: Calcium 8.5 mg/dL (8.4-10.2)
[2019-08-16 06:13] LABS: Calcium 8.5 mg/dL (8.4-10.2)
[2019-08-16] MEDS: INSULIN LISPRO 100 UNIT/ML SUB-Q SCH ×3 (07:30→18:21)
[2019-08-16] MEDS: hydrALAZINE 100 MG TAB PO SCH ×3 (08:10→23:08)
--- NOTE | 2019-08-16 09:46 | Progress Note ---
Assessment and Plan Ms. Tyson is an 79 y/o female admitted with AMS and seizure-like activity. Her troponin elevation is c/w NSTEMI type II. echo reviewed - EF 65-70%, LA mod dilated, mild to mod MR, mild to mod TR, mild , pseudonormalization, severe pulm HTN with RVSP 83mmHg. Neurology recommendations noted. Currently stable cardiac status. Continue current cardiac management. No plans for additional cardiac w/u at this time. Can consider ischemic evaluation as OP once medically stabilized and once mental status improves. Will follow on as needed basis. The patient has been seen in conjunction with Dr. Mayers who agrees with the assessment and plan of care. - Patient Problems (1) NSTEMI (non-ST elevated myocardial infarction) Current Visit: Yes Status: Acute Plan to address problem: Type II (2) Altered mental state Current Visit: Yes Status: Acute (3) ESRD (end stage renal disease) on dialysis Current Visit: Yes Status: Chronic (4) Seizure Current Visit: Yes Status: Acute (5) Hypertension Current Visit: No Status: Chronic Qualifiers: (6) Pulmonary hypertension Current Visit: No Status: Chronic (7) T2DM (type 2 diabetes mellitus) Current Visit: No Status: Chronic Qualifiers: Diabetes mellitus jail insulin use: without local intermodal truck driver use Subjective Date of service: 08/16/19 Principal diagnosis: esrd, post ictal state Interval history: pt resting in bed, sleeping, difficult to arouse, withdraws from painful stimuli. on O2 via NC. in SR on tele. Objective Last Vital Signs Temp 100.1 F H 08/16/19 02:39 Pulse 117 H 08/16/19 02:39 Resp 20 08/16/19 02:39 BP 127/43 08/16/19 02:39 Pulse Ox 100 08/16/19 08:26 - Physical Examination General: Other (withdrawn, nonverbal) HEENT: Positive: PERRL Neck: Positive: neck supple Cardiac: Positive: Reg Rate and Rhythm, S1/S2 Lungs: Positive: Decreased Breath Sounds Neuro: Positive: Other (nonverbal) Abdomen: Positive: Unremarkable Skin: Positive: Clear Musculoskeletal: other (DORENE) Extremities: Present: normal - Labs and Meds Comprehensive Metabolic Panel 08/15/19 08/16/19 08/16/19 Range/Units 15:28 04:23 05:01 Sodium 138 139 (137-145) mmol/L Potassium 4.0 D 4.3 4.3 (3.6-5.0) mmol/L Chloride 98.6 98.9 (98-107) mmol/L Carbon Dioxide 26 27 (22-30) mmol/L BUN 27 H 27 H (7-17) mg/dL Creatinine 3.3 H 3.3 H (0.7-1.2) mg/dL Glucose 314 H 268 H (65-100) mg/dL Calcium 8.5 8.5 (8.4-10.2) mg/dL - Imaging and Cardiology Echo: report reviewed (07/2019: EF of 65-70%, LVH, mild to mod MR, mild to mod TR, severe pulmonary htn) - Telemetry EKG Rhythm: Sinus Rhythm Chamber hypertrophy or enlargement: left ventricular hypertro
[2019-08-16] MEDS: amLODIPine 10 MG TAB PO SCH (10:10)
--- NOTE | 2019-08-16 10:30 | Progress Note ---
Assessment and Plan Impression * End-stage renal disease on maintenance hemodialysis * AMS * Hypertension * Type II diabetes mellitus * History of seizure disorder * Hepatitis C * Thrombocytopenia Recommendations * Continue hemodialysis MWF, due tomorrow * UF as tolerated * BP reasonable, continue current regimen * Hemoglobin at goal, no need for MERVAT * Avoid nephrotoxins * seizure management per primary team/neurology * Adjust diet and meds for ESRD state * No IV, BP or venipuncture and her access arm * Cardiology recommendations reviewed Subjective Date of service: 08/16/19 Principal diagnosis: esrd, post ictal state Interval history: No acute events noted; remains minimally responsive. Tolerated HD yesterday per dialysis nursing Objective - Exam Narrative Exam: General appearance: alert but drowsy, responsive to verbal and tactile stimuli, in no acute distress, nonverbal Head: atraumatic, normocephalic Eye: PERRL Neck:normal ROM Respiratory: decreased breath sounds, on nasal cannula 3L Cardiovascular: normal rhythm, noted systolic murmur GI/Abdominal: soft. nondistended, no tenderness Extremities: upper extremity AV fistula with no redness Neurological altered, withdraws 4 extremities to stimuli Skin: warm, dry, intact - Vital Signs Vital signs: Vital Signs - 12hr 08/15/19 08/16/19 08/16/19 23:24 00:00 01:45 Temperature Pulse Rate 109 H Respiratory 20 24 Rate Respiratory 20 Rate [ Generalized] Blood Pressure [Right] O2 Sat by Pulse 99 Oximetry 08/16/19 08/16/19 02:39 08:26 Temperature 100.1 F H Pulse Rate 117 H Respiratory 20 Rate Respiratory Rate [ Generalized] Blood Pressure 127/43 [Right] O2 Sat by Pulse 100 100 Oximetry - Lab 08/14/19 17:09 08/16/19 05:01 Most recent lab results Calcium 8.5 mg/dL (8.4-10.2) 08/16/19 05:01 Medications & Allergies - Medications Allergies/Adverse Reactions: Allergies No Known Allergies Allergy (Unverified 02/02/18 15:43) Home Medications: Home Medications Medication Instructions Recorded Confirmed Last Taken Type Aspirin 81 mg PO DAILY 08/13/18 10/24/18 08/11/18 History Baclofen 10 mg PO TID 08/13/18 10/24/18 08/11/18 History Tizanidine HCl [Zanaflex 4mg CAP] 4 mg PO TID 08/13/18 10/24/18 08/11/18 History amLODIPine 10 mg PO DAILY 08/13/18 10/24/18 08/11/18 History Lacosamide [Vimpat] 50 mg PO Q12HR #60 tablet 08/18/18 10/24/18 Unknown Rx Acetaminophen [Acetaminophen TAB] 650 mg PO Q4H PRN tablet 09/02/18 10/24/18 Unknown Rx Aspirin [Aspirin BABY CHEW TAB] 81 mg PO DAILY tab.chew 09/02/18 10/24/18 Unknown Rx Famotidine [Pepcid] 10 mg PO BID tablet 09/02/18 10/24/18 Unknown Rx Lispro Insulin [HumaLOG] 0 unit SUB-Q ACHS units 09/02/18 10/24/18 Unknown Rx Gabapentin 100 mg PO Q12H #60 capsule 10/15/18 10/24/18 Unknown Rx ISOSORBIDE MONOnitrate [Imdur ER] 60 mg PO DAILY tablet 10/15/18 10/24/18 Unknown Rx Insulin Regular, Human [HumuLIN R] 0 units SUB-Q QHS units 10/15/18 10/24/18 Unknown Rx Lisinopril [Zestril TAB] 40 mg PO DAILY tablet 10/15/18 10/24/18 Unknown Rx carvediloL [Coreg] 12.5 mg PO BID tablet 10/15/18 10/24/18 Unknown Rx cloNIDine [Catapres] 0.2 mg PO BID tablet 10/15/18 10/24/18 Unknown Rx Losartan [Cozaar] 50 mg PO QDAY #30 tablet 11/01/18 Unknown Rx levETIRAcetam [Keppra TAB] 750 mg PO BID #60 tablet 11/01/18 Unknown Rx oxyCODONE /ACETAMINOPHEN [Percocet 1 tab PO Q6H PRN #12 tablet 11/01/18 Unknown Rx 5/325 mg] Active Medications: Generic Name Dose Route Start Last Admin Trade Name Freq PRN Reason Stop Dose Admin Acetaminophen 650 mg 08/12/19 23:24 08/15/19 22:24 Tylenol PO 650 mg Q4H PRN Administration Pain MILD(1-3)/Fever >100.5/VERDE Amlodipine Besylate 10 mg 08/13/19 10:00 08/15/19 22:23 Amlodipine PO Not Given QDAY BUTCH Lipase/Protease/Amylase 1 each 08/15/19 12:14 Pancreaznazario Goldberg 10,500 Unit FEEDTUBE PRN PRN For Clogged Feeding Tube Dextrose 50 ml 08/13/19 01:03 D50w (25gm) Syringe IV Q30MIN PRN Hypoglycemia Protocol Hydralazine HCl 100 mg 08/13/19 09:14 08/15/19 22:24 Apresoline PO 100 mg TID BUTCH Administration Hydralazine HCl 10 mg 08/13/19 09:15 08/15/19 04:30 Apresoline IV 10 mg Q4HR PRN Administration Blood Pressure Dextrose/Sodium Chloride 1,000 mls @ 42 mls/hr 08/13/19 13:00 D5ns IV DIRECT BUTCH Sodium Chloride 100 mls @ 999 mls/hr 08/13/19 13:21 Nacl 0.9% IV ALANA PRN Hypotension Insulin Human Lispro 0 unit 08/16/19 06:00 08/16/19 07:30 Humalog SUB-Q 4 unit Q6HR BUTCH Administration Protocol Levetiracetam 750 mg 08/16/19 18:00 Keppra FEEDTUBE BID@0600,1800 BUTCH Lorazepam 1 mg 08/12/19 23:26 Ativan IV Q4H PRN Seizures Ondansetron HCl 4 mg 08/12/19 23:24 Zofran IV Q8H PRN Nausea And Vomiting Simple Syrup 15 ml 08/15/19 12:14 Simple Syrup FEEDTUBE PRN PRN Hypoglycemia Simple Syrup 30 ml 08/15/19 12:14 Simple Syrup FEEDTUBE PRN PRN Hypoglycemia Sodium Bicarbonate 325 mg 08/15/19 12:14 Sodium Bicarbonate FEEDTUBE PRN PRN For Clogged Feeding Tube Sodium Chloride 10 ml 08/13/19 10:00 08/15/19 22:24 Sodium Chloride Flush Syringe 10 Ml IV 10 ml BID BUTCH Administration Sodium Chloride 10 ml 08/12/19 23:24 Sodium Chloride Flush Syringe 10 Ml IV PRN PRN LINE FLUSH
--- NOTE | 2019-08-16 16:48 | Magnetic Resonance Report ---
MRI BRAIN WITHOUT CONTRAST INDICATION / CLINICAL INFORMATION: Altered mental status, seizure. TECHNIQUE: Multiplanar, multisequence MR images of the brain were obtained. COMPARISON: Head CT on 08/12/2019 and on 10/23/2018. Prior brain MRI on 08/17/2018. FINDINGS: BRAIN / INTRACRANIAL CONTENTS: No acute ischemia, acute hemorrhage, mass effect, midline shift, or hy drocephalus. No chronic infarct. Stable mild chronic foci of T2 hyperintensity in the deep cerebral white matter, probably within acceptable range for age. Stable normal ventricular and cisternal size for age. CRANIOCERVICAL JUNCTION: No significant abnormality. VASCULAR FLOW-VOIDS: No significant abnormality. ORBITS: Previous bilateral lens replacement noted. SINUSES / MASTOIDS: No significant abnormality of visualized sinuses and mastoid air cells. ADDITIONAL FINDINGS: None. IMPRESSION: 1. No acute findings or adverse change from prior exams. Signer Name: Miah Asif MD Signed: 08/16/2019 4:44 PM Workstation Name: [id number]
[2019-08-16] MEDS ORDERED: levETIRAcetam 500 MG/5 ML ORAL LIQD FEEDTUBE SCH (18:00)
--- NOTE | 2019-08-16 18:06 | Consultation ---
History of Present Illness Consult date: 08/16/19 Reason for Consult: Altered mental status Chief complaint: Altered mental status History of present illness: Patient is an 79-year-old woman with a history of hypertension, ESRD on HD, history of seizures, HCV, HCF, diabetes. Patient presented on 08/12/2019 with seizures, followed by altered mental status. Patient states that she has not been compliant with seizure medication at home. She reportedly had her last hemodialysis recently before admission. Patient reportedly developed seizures 1 month ago, and has had b/l UE and LE weakness for the past month . Past History Past Medical History: diabetes, dialysis, ESRD, heart failure (possible), hypertension, seizures, other (?dementia) Social history: lives with family Medications and Allergies Allergies Allergy/AdvReac Type Severity Reaction Status Date / Time No Known Allergies Allergy Unverified 02/02/18 15:43 Home Medications Medication Instructions Recorded Confirmed Last Taken Type Aspirin 81 mg PO DAILY 08/13/18 10/24/18 08/11/18 History Baclofen 10 mg PO TID 08/13/18 10/24/18 08/11/18 History Tizanidine HCl [Zanaflex 4mg CAP] 4 mg PO TID 08/13/18 10/24/18 08/11/18 History amLODIPine 10 mg PO DAILY 08/13/18 10/24/18 08/11/18 History Lacosamide [Vimpat] 50 mg PO Q12HR #60 tablet 08/18/18 10/24/18 Unknown Rx Acetaminophen [Acetaminophen TAB] 650 mg PO Q4H PRN tablet 09/02/18 10/24/18 Unknown Rx Aspirin [Aspirin BABY CHEW TAB] 81 mg PO DAILY tab.chew 09/02/18 10/24/18 Unkno wn Rx Famotidine [Pepcid] 10 mg PO BID tablet 09/02/18 10/24/18 Unknown Rx Lispro Insulin [HumaLOG] 0 unit SUB-Q ACHS units 09/02/18 10/24/18 Unknown Rx Gabapentin 100 mg PO Q12H #60 capsule 10/15/18 10/24/18 Unknown Rx ISOSORBIDE MONOnitrate [Imdur ER] 60 mg PO DAILY tablet 10/15/18 10/24/18 Unknown Rx Insulin Regular, Human [HumuLIN R] 0 units SUB-Q QHS units 10/15/18 10/24/18 Unknown Rx Lisinopril [Zestril TAB] 40 mg PO DAILY tablet 10/15/18 10/24/18 Unknown Rx carvediloL [Coreg] 12.5 mg PO BID tablet 10/15/18 10/24/18 Unknown Rx cloNIDine [Catapres] 0.2 mg PO BID tablet 10/15/18 10/24/18 Unknown Rx Losartan [Cozaar] 50 mg PO QDAY #30 tablet 11/01/18 Unknown Rx levETIRAcetam [Keppra TAB] 750 mg PO BID #60 tablet 11/01/18 Unknown Rx oxyCODONE /ACETAMINOPHEN [Percocet 1 tab PO Q6H PRN #12 tablet 11/01/18 Unknown Rx 5/325 mg] Active Meds: Active Medications Acetaminophen (Tylenol) 650 mg PO Q4H PRN PRN Reason: Pain MILD(1-3)/Fever >100.5/VERDE Last Admin: 08/15/19 22:24 Dose: 650 mg Documented by: Amlodipine Besylate (Amlodipine) 10 mg PO QDAY [facility] Last Admin: 08/16/19 10:10 Dose: 10 mg Documented by: Lipase/Protease/Amylase (Carolyn Goldberg 10,500 Unit) 1 each FEEDTUBE PRN PRN PRN Reason: For Clogged Feeding Tube Dextrose (D50w (25gm) Syringe) 50 ml IV Q30MIN PRN; Protocol PRN Reason: Hypoglycemia Hydralazine HCl (Apresoline) 100 mg PO TID [facility] Last Admin: 08/16/19 14:10 Dose: 100 mg Documented by: Hydralazine HCl (Apresoline) 10 mg IV Q4HR PRN PRN Reason: Blood Pressure Last Admin: 08/15/19 04:30 Dose: 10 mg Documented by: Dextrose/Sodium Chloride (D5ns) 1,000 mls @ 42 mls/hr IV DIRECT [facility] Last Admin: 08/16/19 14:23 Dose: 42 mls/hr Documented by: Sodium Chloride (Nacl 0.9%) 100 mls @ 999 mls/hr IV ALANA PRN PRN Reason: Hypotension Insulin Human Lispro (Humalog) 0 unit SUB-Q Q6HR [facility]; Protocol Last Admin: 08/16/19 12:17 Dose: 2 unit Documented by: Levetiracetam (Keppra) 750 mg FEEDTUBE BID@0600,1800 BUTCH Lorazepam (Ativan) 1 mg IV Q4H PRN PRN Reason: Seizures Ondansetron HCl (Zofran) 4 mg IV Q8H PRN PRN Reason: Nausea And Vomiting Simple Syrup (Simple Syrup) 15 ml FEEDTUBE PRN PRN PRN Reason: Hypoglycemia Simple Syrup (Simple Syrup) 30 ml FEEDTUBE PRN PRN PRN Reason: Hypoglycemia Sodium Bicarbonate (Sodium Bicarbonate) 325 mg FEEDTUBE PRN PRN PRN Reason: For Clogged Feeding Tube Sodium Chloride (Sodium Chloride Flush Syringe 10 Ml) 10 ml IV BID [facility] Last Admin: 08/16/19 10:11 Dose: 10 ml Documented by: Sodium Chloride (Sodium Chloride Flush Syringe 10 Ml) 10 ml IV PRN PRN PRN Reason: LINE FLUSH Review of Systems All systems: negative Neurological: seizures, change in mentation Physical Examination - Vital Signs Vital Signs: Vital Signs Pulse Resp Pulse Ox 56 L 8 L 99 08/12/19 15:58 08/12/19 15:58 08/12/19 15:58 - Physical Exam Narrative exam: Patient is alert, awake, oriented x4. Follows complex commands. PERRL, EOMI, VFF, no facial weakness noted, tongue midline, b/l intact to LT. 2/5 strength in all extremities. b/l intact to LT. Due to weakness unable to assess FTN and HTS. 2+ reflexes throughout. No dysarthria or aphasia noted. - Constitutional General appearance: comfortable - EENT EENT: Present: ATNC, PERRL, mucous membranes moist, hearing intact, vision intact - Respiratory Respiratory: Present: lungs clear, normal breath sounds - Cardiovascular Cardiovascular: Present: regular rate, normal S1, normal S2 Extremities: Present: no clubbing, cyanosis, no inflammation - Gastrointestinal Gastrointestinal: Present: normoactive bowel sounds, soft, non-tender - Integumentary Integumentary: Present: normal - Musculoskeletal Musculoskeletal: Present: no fluid collection, no pain - Psychiatric Psychiatric: Present: mood/affect appropriate Results - Laboratory Findings CBC and BMP: 08/14/19 17:09 08/16/19 05:01 Abnormal Lab Findings: Abnormal Labs 08/12/19 08/12/1919 16:46 17:14 17:14 WBC RDW 16.9 H Plt Count 86 L Lymph % (Auto) 12.8 L [place] % (Auto) 12.1 H Lymph # 0.8 L Seg Neutrophils % 73.1 H POC ABG pCO2 POC ABG pO2 Sodium Potassium 5.3 H Chloride Carbon Dioxide BUN 35 H Creatinine 5.1 H Glucose 126 H POC Glucose 137 H Ammonia Total Creatine Kinase CK-MB (CK-2) Rel Index Troponin T 0.102 H* Albumin 3.4 L Salicylates Acetaminophen Hepatitis C Antibody 08/12/19 08/12/19 08/13/19 17:14 17:15 01:33 WBC RDW Plt Count Lymph % (Auto) [place] % (Auto) Lymph # Seg Neutrophils % POC ABG pCO2 POC ABG pO2 Sodium Potassium Chloride Carbon Dioxide BUN Creatinine Glucose POC Glucose Ammonia Total Creatine Kinase 23 L CK-MB (CK-2) Rel Index 16.0 H Troponin T 0.115 H* Albumin Salicylates < 0.3 L Acetaminophen < 5.0 L Hepatitis C Antibody 08/13/19 08/13/19 08/13/19 02:15 02:15 05:03 WBC RDW 17.0 H Plt Count 93 L Lymph % (Auto) [place] % (Auto) 10.5 H Lymph # 0.9 L Seg Neutrophils % 72.4 H POC ABG pCO2 POC ABG pO2 Sodium Potassium 5.6 H Chloride Carbon Dioxide BUN 38 H Creatinine 5.6 H Glucose 121 H POC Glucose Ammonia Total Creatine Kinase 25 L CK-MB (CK-2) Rel Index 14.0 H Troponin T 0.118 H* Albumin Salicylates Acetaminophen Hepatitis C Antibody 08/13/19 08/13/19 08/13/19 15:05 16:52 22:24 WBC RDW Plt Count Lymph % (Auto) [place] % (Auto) Lymph # Seg Neutrophils % POC ABG pCO2 POC ABG pO2 Sodium Potassium Chloride Carbon Dioxide BUN Creatinine Glucose POC Glucose 148 H 191 H Ammonia Total Creatine Kinase CK-MB (CK-2) Rel Index Troponin T Albumin Salicylates Acetaminophen Hepatitis C Antibody Reactive A 08/13/19 08/14/19 08/14/19 22:54 02:39 06:15 WBC RDW Plt Count Lymph % (Auto) [place] % (Auto) Lymph # Seg Neutrophils % POC ABG pCO2 48.8 H POC ABG pO2 62 L Sodium Potassium Chloride Carbon Dioxide BUN Creatinine Glucose POC Glucose 276 H 182 H Ammonia Total Creatine Kinase CK-MB (CK-2) Rel Index Troponin T Albumin Salicylates Acetaminophen Hepatitis C Antibody 08/14/19 08/14/19 08/14/19 09:52 17:09 17:09 WBC RDW Plt Count Lymph % (Auto) [place] % (Auto) Lymph # Seg Neutrophils % POC ABG pCO2 POC ABG pO2 Sodium 133 L Potassium Chloride 97.4 L Carbon Dioxide 19 L BUN 38 H Creatinine 4.6 H Glucose 127 H POC Glucose 202 H Ammonia 24.0 L Total Creatine Kinase CK-MB (CK-2) Rel Index Troponin T Albumin Salicylates Acetaminophen Hepatitis C Antibody 08/14/19 08/14/19 08/14/19 17:09 17:28 21:58 WBC 20.0 H RDW 17.4 H Plt Count 125 L Lymph % (Auto) [place] % (Auto) Lymph # Seg Neutrophils % POC ABG pCO2 POC ABG pO2 Sodium Potassium Chloride Carbon Dioxide BUN Creatinine Glucose POC Glucose 112 H 107 H Ammonia Total Creatine Kinase CK-MB (CK-2) Rel Index Troponin T Albumin Salicylates Acetaminophen Hepatitis C Antibody 08/15/19 08/15/19 08/15/19 04:57 08:18 16:54 WBC RDW Plt Count Lymph % (Auto) [place] % (Auto) Lymph # Seg Neutrophils % POC ABG pCO2 POC ABG pO2 Sodium Potassium 6.1 H* Chloride Carbon Dioxide BUN 48 H Creatinine 5.6 H Glucose 171 H POC Glucose 298 H 132 H Ammonia Total Creatine Kinase CK-MB (CK-2) Rel Index Troponin T Albumin Salicylates Acetaminophen Hepatitis C Antibody 08/15/19 08/16/19 08/16/19 21:50 04:23 05:01 WBC RDW Plt Count Lymph % (Auto) [place] % (Auto) Lymph # Seg Neutrophils % POC ABG pCO2 POC ABG pO2 Sodium Potassium Chloride Carbon Dioxide BUN 27 H 27 H Creatinine 3.3 H 3.3 H Glucose 314 H 268 H POC Glucose 134 H Ammonia Total Creatine Kinase CK-MB (CK-2) Rel Index Troponin T Albumin Salicylates Acetaminophen Hepatitis C Antibody 08/16/19 11:52 WBC RDW Plt Count Lymph % (Auto) [place] % (Auto) Lymph # Seg Neutrophils % POC ABG pCO2 POC ABG pO2 Sodium Potassium Chloride Carbon Dioxide BUN Creatinine Glucose POC Glucose 172 H Ammonia Total Creatine Kinase CK-MB (CK-2) Rel Index Troponin T Albumin Salicylates Acetaminophen Hepatitis C Antibody Assessment and Plan Patient is an 79-year-old woman with a history of hypertension, ESRD on HD, history of seizures, HCV, HCF, diabetes, who p/w seizures and altered mental status. According to the patient's clinical findings, it is likely that the patient has metabolic encephalopathy, in setting of elevated WBC, and fevers. Alternatively, patient may be having seizures. Plan: 1. Altered mental status - mental status currently improved. - Likely in setting of metabolic encephalopathy - Patient noted to have elevated WBC, and low-grade fevers. Further workup per primary/ID teams. If no infectious source found, can consider LP. - Given that patient has ESRD on HD, will change keppra dose to 500mg BID, with additional 500mg to be given after each HD. - Will continue home medication of Vimpat, 50mg BID. - MRI brain unremarkable - Check MRI C-spine,as patient noted to have b/l UE and LE weakness, which started about 1 month ago. - Check EEG - Continue to correct metabolic/infectious abnormalities per primary team - Will continue to monitor patient - PT/OT Thank you for allowing me to take part in the care of this patient. Amrik Owens MD Neurology
[2019-08-16] MEDS: levETIRAcetam 500 MG TAB PO SCH (23:09)
[2019-08-16] MEDS: LACOSAMIDE 50 MG TAB FEEDTUBE SCH (23:22)
[2019-08-17] MEDS: INSULIN LISPRO 100 UNIT/ML SUB-Q SCH ×4 (00:42→18:53)
[2019-08-17] MEDS: levETIRAcetam 500 MG TAB PO SCH ×2 (09:28→22:07)
[2019-08-17] MEDS: hydrALAZINE 100 MG TAB PO SCH ×3 (09:28→22:09)
[2019-08-17] MEDS: amLODIPine 10 MG TAB PO SCH (09:28)
[2019-08-17] MEDS: LACOSAMIDE 50 MG TAB FEEDTUBE SCH ×2 (09:28→22:08)
--- NOTE | 2019-08-17 11:15 | Magnetic Resonance Report ---
MR cervical spine wo con INDICATION / CLINICAL INFORMATION: 79 years Female; weakness in bilateral arms and legs. TECHNIQUE: Multisequence, multiplanar images of the cervical spine were obtained. COMPARISON: CT - 08/12/2018 FINDINGS: CRANIOCERVICAL JUNCTION:No significant abnormality. ALIGNMENT: Mild excessive lordosis of the cervical spine seen, presumably related to the mild kyphosi s noted in the upper thoracic region. VERTEBRAE:Mild loss of height suggested at C5, C6, perhaps C7, most likely on a chronic degenerative basis. There are mild Modic type I endplate changes at C5-6, which may be a source of neck pain. VISUALIZED SPINAL CORD: See below. INTERVERTEBRAL DISCS: Multilevel desiccation seen. There is disc space narrowing at C5-6 and perhaps C3-4 and C4-5. [id number] ANALYSIS: C2-3: Mild facet hypertrophy and minimal disc bulge. Minimal ligamentum flavum hypertrophy. No signif icant sequela. C3-4: Mild, broad-based disc protrusion and mild disc bulge. Posterior ligamentum flavum hypertrophy seen. There is moderate canal narrowing-AP diameter of the canal narrows to approximately 5-6 mm. Th ere is flattening of the cervical cord, although no definitive signs of cord edema are appreciated. There is mild foraminal narrowing on the left from facet hypertrophy and [id number] on the righ t from uncinate and facet hypertrophy. Please correlate with right C4 nerve root symptomatology. C4-5: Right paracentral/lateral recess disc protrusion seen which mildly flattens the right anterior hemicord. No definitive signs of cord edema. Mild foraminal narrowing bilaterally from facet hypertro phy. C5-6: Mild disc bulge and facet hypertrophy. Moderate foraminal narrowing seen bilaterally from disc disease and spondylosis, combined with facet hypertrophy. Findings certainly could affect the exiting C6 nerves. C6-7: Mild disc bulge. Mild canal narrowing and posterior ligamentum flavum hypertrophy. Mild foramin al narrowing on the right and [id number] on the left from disc disease and spondylosis, combine d with facet hypertrophy. C7-T1: Bilateral facet hypertrophy. There is also uncinate hypertrophy bilaterally. Moderate foramina l narrowing is seen on the right and [id number] on the left. There is encroachment upon the rig ht C8 nerve. PARASPINAL SOFT TISSUES: No significant abnormality. ADDITIONAL FINDINGS: None. IMPRESSION: 1. Degenerative changes of the cervical spine as described above. Most marked findings appear to be a t C5-6, followed by C3-4. Please correlate with dermatomal distribution of patient's symptoms, if pre sent. Signer Name: Mg Gomez MD, III Signed: 08/17/2019 11:11 AM Workstation Name: [id number]
--- NOTE | 2019-08-17 11:39 | Progress Note ---
Assessment and Plan Impression * End-stage renal disease on maintenance hemodialysis * AMS, improving * Hypertension * Type II diabetes mellitus * History of seizure disorder * Hepatitis C * Thrombocytopenia Recommendations * Continue hemodialysis MWF, due today * UF as tolerated * BP reasonable, continue current regimen * Hemoglobin at goal, no need for MERVAT * Avoid nephrotoxins * seizure management per primary team/neurology, appreciate recs, f/u CT spine * Adjust diet and meds for ESRD state * No IV, BP or venipuncture and her access arm * Cardiology recommendations reviewed Subjective Date of service: 08/17/19 Principal diagnosis: esrd, post ictal state Interval history: No acute events noted; had CT spine this AM. Patient much more awake and alert this AM. Denies any concerns or questions today. No dyspnea, chest pain, issues with HD noted. Objective - Exam Narrative Exam: General appearance: alert and oriented, in no acute distress, chronically frail appearing Head: atraumatic, normocephalic Eye: PERRL Neck:normal ROM Respiratory: clear breath sounds bilaterally Cardiovascular: normal rhythm, noted systolic murmur GI/Abdominal: soft. nondistended, no tenderness Extremities: upper extremity AV fistula with no redness Neurological: no focal deficits noted today Skin: warm, dry, intact - Vital Signs Vital signs: Vital Signs - 12hr 08/17/19 08/17/19 08/17/19 00:00 01:42 02:55 Temperature 98.1 F Pulse Rate 84 Respiratory 23 20 Rate Respiratory 18 Rate [ Generalized] Blood Pressure Blood Pressure 130/45 [Right] O2 Sat by Pulse 99 Oximetry 08/17/19 08/17/19 07:55 08:42 Temperature 97.9 F Pulse Rate 82 Respiratory 20 22 Rate Respiratory Rate [ Generalized] Blood Pressure 143/52 Blood Pressure [Right] O2 Sat by Pulse 100 Oximetry - Lab 08/14/19 17:09 08/16/19 05:01 Most recent lab results Calcium 8.5 mg/dL (8.4-10.2) 08/16/19 05:01 Medications & Allergies - Medications Allergies/Adverse Reactions: Allergies No Known Allergies Allergy (Unverified 02/02/18 15:43) Home Medications: Home Medications Medication Instructions Recorded Confirmed Last Taken Type Aspirin 81 mg PO DAILY 08/13/18 08/17/19 08/11/18 History Baclofen 10 mg PO TID 11/08/17/19 08/11/18 History Tizanidine HCl [Zanaflex 4mg CAP] 4 mg PO TID 08/13/18 08/17/19 08/11/18 History amLODIPine 10 mg PO DAILY 08/13/18 08/17/19 08/11/18 History Lacosamide [Vimpat] 50 mg PO Q12HR #60 tablet 08/18/18 08/17/19 Unknown Rx Acetaminophen [Acetaminophen TAB] 650 mg PO Q4H PRN tablet 09/02/18 08/17/19 Unknown Rx Aspirin [Aspirin BABY CHEW TAB] 81 mg PO DAILY tab.chew 09/02/18 08/17/19 Unknown Rx Famotidine [Pepcid] 10 mg PO BID tablet 09/02/18 08/17/19 Unknown Rx Lispro Insulin [HumaLOG] 0 unit SUB-Q ACHS units 09/02/18 08/17/19 Unknown Rx Gabapentin 100 mg PO Q12H #60 capsule 10/15/18 08/17/19 Unknown Rx ISOSORBIDE MONOnitrate [Imdur ER] 60 mg PO DAILY tablet 10/15/18 08/17/19 Unknown Rx Insulin Regular, Human [HumuLIN R] 0 units SUB-Q QHS units 10/15/18 08/17/19 Unknown Rx Lisinopril [Zestril TAB] 40 mg PO DAILY tablet 10/15/18 08/17/19 Unknown Rx carvediloL [Coreg] 12.5 mg PO BID tablet 10/15/18 08/17/19 Unknown Rx cloNIDine [Catapres] 0.2 mg PO BID tablet 10/15/18 08/17/19 Unknown Rx Losartan [Cozaar] 50 mg PO QDAY #30 tablet 11/01/18 08/17/19 Unknown Rx levETIRAcetam [Keppra TAB] 750 mg PO BID #60 tablet 11/01/18 08/17/19 Unknown Rx oxyCODONE /ACETAMINOPHEN [Percocet 1 tab PO Q6H PRN #12 tablet 11/01/18 08/17/19 Unknown Rx 5/325 mg] Active Medications: Generic Name Dose Route Start Last Admin Trade Name Freq PRN Reason Stop Dose Admin Acetaminophen 650 mg 08/12/19 23:24 08/15/19 22:24 Tylenol PO 650 mg Q4H PRN Administration Pain MILD(1-3)/Fever >100.5/VERDE Amlodipine Besylate 10 mg 08/13/19 10:00 08/17/19 09:28 Amlodipine PO 10 mg QDAY BUTCH Administration Lipase/Protease/Amylase 1 each 08/15/19 12:14 Pancresabrina Goldberg 10,500 Unit FEEDTUBE PRN PRN For Clogged Feeding Tube Dextrose 50 ml 08/13/19 01:03 D50w (25gm) Syringe IV Q30MIN PRN Hypoglycemia Protocol Hydralazine HCl 100 mg 08/13/19 09:14 08/17/19 09:28 Apresoline PO 100 mg TID BUTCH Administration Hydralazine HCl 10 mg 08/13/19 09:15 08/15/19 04:30 Apresoline IV 10 mg Q4HR PRN Administration Blood Pressure Dextrose/Sodium Chloride 1,000 mls @ 42 mls/hr 08/13/19 13:00 08/16/19 14:23 D5ns IV 42 mls/hr DIRECT BUTCH Administration Sodium Chloride 100 mls @ 999 mls/hr 08/13/19 13:21 Nacl 0.9% IV ALANA PRN Hypotension Insulin Human Lispro 0 unit 08/16/19 06:00 08/17/19 06:15 Humalog SUB-Q Not Given Q6HR [facility] Protocol Lacosamide 50 mg 08/16/19 22:00 08/17/19 09:28 Vimpat FEEDTUBE 50 mg Q12HR BUTCH Administration Levetiracetam 500 mg 08/16/19 22:00 08/17/19 09:28 Keppra PO 500 mg BID BUTCH Administration Lorazepam 1 mg 08/12/19 23:26 Ativan IV Q4H PRN Seizures Ondansetron HCl 4 mg 08/12/19 23:24 Zofran IV Q8H PRN Nausea And Vomiting Simple Syrup 15 ml 08/15/19 12:14 Simple Syrup FEEDTUBE PRN PRN Hypoglycemia Simple Syrup 30 ml 08/15/19 12:14 Simple Syrup FEEDTUBE PRN PRN Hypoglycemia Sodium Bicarbonate 325 mg 08/15/19 12:14 Sodium Bicarbonate FEEDTUBE PRN PRN For Clogged Feeding Tube Sodium Chloride 10 ml 08/13/19 10:00 08/17/19 09:28 Sodium Chloride Flush Syringe 10 Ml IV 10 ml BID BUTCH Administration Sodium Chloride 10 ml 08/12/19 23:24 Sodium Chloride Flush Syringe 10 Ml IV PRN PRN LINE FLUSH
--- NOTE | 2019-08-17 13:13 | Progress Note ---
Assessment and Plan Assessment and plan: 79-year-old woman who presents to the hospital for reported seizures and altered mental status. Her family called 911 after they witnessed her having seizures. Unfortunately we do not have documentation of what the seizures actually looks like but apparently patient was unconscious and had some form of abnormal movements. 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 ESRD, hyperkalemia medically rx, cont HD Hypertension cont bp meds Diabetes cont SSI elevated troponin likely Type 2 DC, given seizures severe pulm htn, meds optimized per cardiology cardiology input appreciated, EF 65 AOCD stable Disposition Likely home tomorrow, awaiting PT eval History Interval history: Patient is not arousable, passed swallow test at bedside Review of systems Constitutional: No fevers, no malaise, no joint pains CVS: No chest pain, no orthopnea, no pedal edema GI: No abdominal pain, no diarrhea, no vomiting, no constipation Respiratory: , no wheezing, no coughing Hospitalist Physical - Physical exam Narrative exam: General.: Appears well, no distress, nontoxic HEENT: Moist mucous membranes, extraocular muscles intact, no lymphadenopathy Neck: supple Cardiac: S1-S2 heard Lungs: clear to auscultation bilaterally Abdomen: soft , nontender, nondistended, bowel sounds positive Extremities: no edema clubbing or cyanosis Skin: no rash or lesions Neurologic: She is awake and alert, obeys commands, moves extremities, has had weakness of her lower extremities for months now Psych, calm and cooperative - Constitutional Vitals: Temp Pulse Resp BP Pulse Ox 97.9 F 82 22 143/52 100 08/17/19 07:55 08/17/19 08:42 08/17/19 08:42 08/17/19 07:55 08/17/19 08:42 General appearance: Present: no acute distress Results - Labs CBC & Chem 7: 08/14/19 17:09 08/16/19 05:01 Labs: Laboratory Last Values WBC 20.0 K/mm3 (4.5-11.0) H 08/14/19 17:09 RBC 4.30 M/mm3 (3.65-5.03) 08/14/19 17:09 Hgb 12.6 gm/dl (10.1-14.3) 08/14/19 17:09 Hct 38.7 % (30.3-42.9) 08/14/19 17:09 MCV 90 fl (79-97) 08/14/19 17:09 MCH 29 pg (28-32) 08/14/19 17:09 MCHC 33 % (30-34) 08/14/19 17:09 RDW 17.4 % (13.2-15.2) H 08/14/19 17:09 Plt Count 125 K/mm3 (140-440) L 08/14/19 17:09 Lymph % (Auto) [place] 08/14/19 17:09 [place] % (Auto) [place] 08/14/19 17:09 Eos % (Auto) [place] 08/14/19 17:09 Baso % (Auto) [place] 08/14/19 17:09 Lymph # [place] 08/14/19 17:09 [place] # [place] 08/14/19 17:09 Eos # [place] 08/14/19 17:09 Baso # [place] 08/14/19 17:09 Seg Neutrophils % [place] 08/14/19 17:09 Seg Neutrophils # [place] 08/14/19 17:09 PT 12.3 Sec. (12.2-14.9) 08/12/19 17:14 INR 0.92 (0.87-1.13) 08/12/19 17:14 APTT 30.3 Sec. (24.2-36.6) 08/12/19 17:14 POC ABG pH 7.376 (7.35-7.45) 08/13/19 22:54 POC ABG pCO2 48.8 (35-45) H 08/13/19 22:54 POC ABG pO2 62 (80-105) L 08/13/19 22:54 POC ABG HCO3 28.6 (22-26 mml/L) 08/13/19 22:54 POC ABG Total CO2 30 (23-27mmol/L) 08/13/19 22:54 POC ABG O2 Sat 91 08/13/19 22:54 POC ABG Base Excess 3 ((-2) - (+3)mmol/L) 08/13/19 22:54 FiO2 100 % 08/13/19 22:54 Sodium 139 mmol/L (137-145) 08/16/19 05:01 Potassium 4.3 mmol/L (3.6-5.0) 08/16/19 05:01 Chloride 98.9 mmol/L (98-107) 08/16/19 05:01 Carbon Dioxide 27 mmol/L (22-30) 08/16/19 05:01 Anion Gap 17 mmol/L 08/16/19 05:01 BUN 27 mg/dL (7-17) H 08/16/19 05:01 Creatinine 3.3 mg/dL (0.7-1.2) H 08/16/19 05:01 Estimated GFR 16 ml/min 08/16/19 05:01 BUN/Creatinine Ratio 8 % 08/16/19 05:01 Glucose 268 mg/dL (65-100) H 08/16/19 05:01 POC Glucose 289 (70-105) H 08/17/19 11:40 Lactic Acid 1.20 mmol/L (0.7-2.0) 08/12/19 17:14 Calcium 8.5 mg/dL (8.4-10.2) 08/16/19 05:01 Total Bilirubin 0.60 mg/dL (0.1-1.2) 08/12/19 17:14 AST 24 units/L (5-40) 08/12/19 17:14 ALT 14 units/L (7-56) 08/12/19 17:14 Alkaline Phosphatase 78 units/L (35-129) 08/12/19 17:14 Ammonia 24.0 umol/L (25-60) L 08/14/19 17:09 Total Creatine Kinase 25 units/L (30-135) L 08/13/19 05:03 CK-MB (CK-2) 3.5 ng/mL (0.0-4.0) 08/13/19 05:03 CK-MB (CK-2) Rel Index 14.0 (0-4) H 08/13/19 05:03 Troponin T 0.118 ng/mL (0.00-0.029) H* 08/13/19 05:03 Total Protein 6.4 g/dL (6.3-8.2) 08/12/19 17:14 Albumin 3.4 g/dL (3.9-5) L 08/12/19 17:14 Albumin/Globulin Ratio 1.1 % 08/12/19 17:14 Triglycerides 73 mg/dL (2-149) 08/12/19 17:14 Cholesterol 108 mg/dL (50-199) 08/12/19 17:14 LDL Cholesterol Direct 51 mg/dL (50-130) 08/12/19 17:14 HDL Cholesterol 51 mg/dL (40-59) 08/12/19 17:14 Cholesterol/HDL Ratio 2.11 % 08/12/19 17:14 TSH 2.430 mlU/mL (0.270-4.200) 08/12/19 17:15 Urine Color Yellow (Yellow) 08/12/19 17:19 Urine Turbidity Slightly-cloudy (Clear) 08/12/19 17:19 Urine pH 6.0 (5.0-7.0) 08/12/19 17:19 Ur Specific [place] 1.012 (1.003-1.030) 08/12/19 17:19 Urine Protein 100 mg/dl mg/dL (Negative) 08/12/19 17:19 Urine Glucose (UA) Neg mg/dL (Negative) 08/12/19 17:19 Urine Ketones Neg mg/dL (Negative) 08/12/19 17:19 Urine Blood Neg (Negative) 08/12/19 17:19 Urine Nitrite Neg (Negative) 08/12/19 17:19 Urine Bilirubin Neg (Negative) 08/12/19 17:19 Urine Urobilinogen 2.0 mg/dL (<2.0) 08/12/19 17:19 Ur Leukocyte Esterase Neg (Negative) 08/12/19 17:19 Urine WBC (Auto) 2.0 /HPF (0.0-6.0) 08/12/19 17:19 Urine RBC (Auto) 1.0 /HPF (0.0-6.0) 08/12/19 17:19 U Epithel Cells (Auto) 12.0 /HPF (0-13.0) 08/12/19 17:19 Urine Bacteria (Auto) 1+ /HPF (Negative) 08/12/19 17:19 Salicylates < 0.3 mg/dL (2.8-20.0) L 08/12/19 17:15 Urine Opiates Screen Presumptive negative 08/12/19 17:19 Urine Methadone Screen Presumptive negative 08/12/19 17:19 Acetaminophen < 5.0 ug/mL (10.0-30.0) L 08/12/19 17:14 Ur Barbiturates Screen Presumptive negative 08/12/19 17:19 Ur Phencyclidine Scrn Presumptive negative 08/12/19 17:19 Ur Amphetamines Screen Presumptive negative 08/12/19 17:19 U Benzodiazepines Scrn Presumptive negative 08/12/19 17:19 Urine Cocaine Screen Presumptive negative 08/12/19 17:19 U Marijuana (THC) Screen Presumptive negative 08/12/19 17:19 Drugs of Abuse Note Disclamer 08/12/19 17:19 Plasma/Serum Alcohol < 0.01 % (0-0.07) 08/12/19 17:15 Hepatitis A IgM Ab Non-reactive (NonReactive) 08/13/19 15:05 Hep Bs Antigen Non-reactive (Negative) 08/13/19 15:05 Hep B Core IgM Ab Non-reactive (NonReactive) 08/13/19 15:05 Hepatitis C Antibody Reactive (NonReactive) A 08/13/19 15:05 Blood Type A POSITIVE 08/12/19 17:00 Antibody Screen Negative 08/12/19 17:00 Active Medications - Current Medications Current Medications: Generic Name Dose Route Start Last Admin Trade Name Freq PRN Reason Stop Dose Admin Acetaminophen 650 mg 08/12/19 23:24 08/15/19 22:24 Tylenol PO 650 mg Q4H PRN Administration Pain MILD(1-3)/Fever >100.5/VERDE Amlodipine Besylate 10 mg 08/13/19 10:00 08/17/19 09:28 Amlodipine PO 10 mg QDAY [facility] Administration Lipase/Protease/Amylase 1 each 08/15/19 12:14 Pancreaznazario Goldberg 10,500 Unit FEEDTUBE PRN PRN For Clogged Feeding Tube Dextrose 50 ml 08/13/19 01:03 D50w (25gm) Syringe IV Q30MIN PRN Hypoglycemia Protocol Enoxaparin Sodium 40 mg 08/17/19 22:00 Enoxaparin SUB-Q QDAY@2200 [facility] Hydralazine HCl 100 mg 08/13/19 09:14 08/17/19 09:28 Apresoline PO 100 mg TID BUTCH Administration Hydralazine HCl 10 mg 08/13/19 09:15 08/15/19 04:30 Apresoline IV 10 mg Q4HR PRN Administration Blood Pressure Dextrose/Sodium Chloride 1,000 mls @ 42 mls/hr 08/13/19 13:00 08/16/19 14:23 D5ns IV 42 mls/hr DIRECT BUTCH Administration Sodium Chloride 100 mls @ 999 mls/hr 08/13/19 13:21 Nacl 0.9% IV ALANA PRN Hypotension Insulin Human Lispro 0 unit 08/16/19 06:00 08/17/19 12:16 Humalog SUB-Q 4 unit Q6HR BUTCH Administration Protocol Lacosamide 50 mg 08/16/19 22:00 08/17/19 09:28 Vimpat FEEDTUBE 50 mg Q12HR BUTCH Administration Levetiracetam 500 mg 08/16/19 22:00 08/17/19 09:28 Keppra PO 500 mg BID BUTCH Administration Lorazepam 1 mg 08/12/19 23:26 Ativan IV Q4H PRN Seizures Ondansetron HCl 4 mg 08/12/19 23:24 Zofran IV Q8H PRN Nausea And Vomiting Simple Syrup 15 ml 08/15/19 12:14 Simple Syrup FEEDTUBE PRN PRN Hypoglycemia Simple Syrup 30 ml 08/15/19 12:14 Simple Syrup FEEDTUBE PRN PRN Hypoglycemia Sodium Bicarbonate 325 mg 08/15/19 12:14 Sodium Bicarbonate FEEDTUBE PRN PRN For Clogged Feeding Tube Sodium Chloride 10 ml 08/13/19 10:00 08/17/19 09:28 Sodium Chloride Flush Syringe 10 Ml IV 10 ml BID BUTCH Administration Sodium Chloride 10 ml 08/12/19 23:24 Sodium Chloride Flush Syringe 10 Ml IV PRN PRN LINE FLUSH Nutrition/Malnutrition Assess - Dietary Evaluation Nutrition/Malnutrition Findings: Nutrition Notes Start: 08/13/19 12:15 Freq: Status: Active Protocol: Document 08/17/19 12:13 LM (Rec: 08/17/19 12:24 LM [id number]) Nutrition Notes Initial or Follow up Reassessment Current Diagnosis CKD (stage V CKD),Diabetes, Hypertension,Heart Failure Other Pertinent Diagnosis on HD, AMS Current Diet Mechanical soft Labs/Tests POC glu 112 Pertinent Medications Reviewed Height 5 ft 5 in Weight 51.256 kg [place] Body Weight (kg) 56.81 BMI 18.8 Subjective/Other Information Pt passed swallow eval and diet was advanced to mechanical soft with thin liquids. TF still hanging but turned off. Pt asleep at time of visit and lunch tray apeared untouched. Per RN note pt ate 35% of tray yesterday. Percent of energy/protein needs met: 0%/0% Burn Absent Trauma Absent GI Symptoms None Minimum of two criteria No Reduced Trauma Doctor Strength Measurably Reduced (severe) #1 Nutrition Diagnosis Inadequate oral intake As Evidenced by Signs and Symptoms pt passed swallow eval, diet advanced to mechanical soft Diagnosis Progress(for reassessment Improved documentation) Is patient on ventilator? No Is Patient Ambulatory and/or Out of Bed No REE-([place]-confined to bed) 1187.184 Kcal/Kg value to use for calculation 30 Approximate Energy Requirements Using 1538 kcal/Kg Additional Notes Protein needs are > 61g (>1.2g /kg) Fluid needs are 1000-1500ml Nutrition Intervention Change Diet Order: Mechanical soft Goal #1 Meet at least 80% of kcal and protein needs via PO intakes Anticipated Discharge Needs: Mechanical soft Follow-Up By: 08/19/19 Additional Comments F/U for PO intakes/ ONS needs
--- NOTE | 2019-08-17 13:19 | Progress Note ---
Assessment and Plan Patient is an 79-year-old woman with a history of hypertension, ESRD on HD, history of seizures, HCV, HCF, diabetes, who p/w seizures and altered mental status. According to the patient's clinical findings, it is likely that the patient has metabolic encephalopathy, in setting of elevated WBC, and fevers. Plan: 1. Altered mental status - mental status improved. - Likely in setting of metabolic encephalopathy - Patient noted to have elevated WBC, and low-grade fevers. Further workup per primary/ID teams. - Cont. keppra dose 500mg BID, with additional 500mg to be given after each HD. - Continue home medication of Vimpat, 50mg BID. - MRI brain unremarkable - MRI C-spine results reviewed, no evidence of acute spinal cord compression. Recommend outpatient f/u with neurosurgery. - EEG: no seizures on initial review. Awaiting final result. - Continue to correct metabolic/infectious abnormalities per primary team - PT/OT Thank you for allowing me to take part in the care of this patient. Amrik Owens MD Neurology Subjective Date of service: 08/17/19 Principal diagnosis: esrd, post ictal state Interval history: No acute events overnight. Objective - Exam Narrative Exam: Patient is alert, awake, oriented x4. Follows complex commands. PERRL, EOMI, VFF, no facial weakness noted, tongue midline, b/l intact to LT. 3/5 strength prximally in all extremities, 4/5 distally. b/l intact to LT. Due to weakness unable to assess FTN and HTS. 2+ reflexes throughout. No dysarthria or aphasia noted. - Vital Sign Vital Signs - 12hr 08/17/19 08/17/19 08/17/19 01:42 02:55 07:55 Temperature 98.1 F 97.9 F Pulse Rate 84 Respiratory 23 20 20 Rate Blood Pressure 143/52 Blood Pressure 130/45 [Right] O2 Sat by Pulse 99 Oximetry 08/17/19 08:42 Temperature Pulse Rate 82 Respiratory 22 Rate Blood Pressure Blood Pressure [Right] O2 Sat by Pulse 100 Oximetry - General Apperance Constitutional: comfortable - EENT EENT: ATNC, PERRL, mucous membranes moist - Respiratory Respiratory: lungs clear, normal breath sounds - Cardiovascular Cardiovascular: regular rate, normal S1, normal S2 Extremities: no clubbing, cyanosis, no inflammation - Gastrointestinal Gastrointestinal: normoactive bowel sounds, soft, non-tender - Integumentary Integumentary: normal - Musculoskeletal Musculoskeletal: no fluid collection - Psychiatric Psychiatric: mood/affect appropriate - Laboratory Findings CBC and BMP: 08/14/19 17:09 08/16/19 05:01 Abnormal Lab Findings: Abnormal Labs 08/12/19 08/12/19 08/12/19 16:46 17:14 17:14 WBC RDW 16.9 H Plt Count 86 L Lymph % (Auto) 12.8 L [place] % (Auto) 12.1 H Lymph # 0.8 L Seg Neutrophils % 73.1 H POC ABG pCO2 POC ABG pO2 Sodium Potassium 5.3 H Chloride Carbon Dioxide BUN 35 H Creatinine 5.1 H Glucose 126 H POC Glucose 137 H Ammonia Total Creatine Kinase CK-MB (CK-2) Rel Index Troponin T 0.102 H* Albumin 3.4 L Salicylates Acetaminophen Hepatitis C Antibody 08/12/19 08/12/19 08/13/19 17:14 17:15 01:33 WBC RDW Plt Count Lymph % (Auto) [place] % (Auto) Lymph # Seg Neutrophils % POC ABG pCO2 POC ABG pO2 Sodium Potassium Chloride Carbon Dioxide BUN Creatinine Glucose POC Glucose Ammonia Total Creatine Kinase 23 L CK-MB (CK-2) Rel Index 16.0 H Troponin T 0.115 H* Albumin Salicylates < 0.3 L Acetaminophen < 5.0 L Hepatitis C Antibody 08/13/19 08/13/19 08/13/19 02:15 02:15 05:03 WBC RDW 17.0 H Plt Count 93 L Lymph % (Auto) [place] % (Auto) 10.5 H Lymph # 0.9 L Seg Neutrophils % 72.4 H POC ABG pCO2 POC ABG pO2 Sodium Potassium 5.6 H Chloride Carbon Dioxide BUN 38 H Creatinine 5.6 H Glucose 121 H POC Glucose Ammonia Total Creatine Kinase 25 L CK-MB (CK-2) Rel Index 14.0 H Troponin T 0.118 H* Albumin Salicylates Acetaminophen Hepatitis C Antibody 08/13/19 08/13/19 08/13/19 15:05 16:52 22:24 WBC RDW Plt Count Lymph % (Auto) [place] % (Auto) Lymph # Seg Neutrophils % POC ABG pCO2 POC ABG pO2 Sodium Potassium Chloride Carbon Dioxide BUN Creatinine Glucose POC Glucose 148 H 191 H Ammonia Total Creatine Kinase CK-MB (CK-2) Rel Index Troponin T Albumin Salicylates Acetaminophen Hepatitis C Antibody Reactive A 08/13/19 08/14/19 08/14/19 22:54 02:39 06:15 WBC RDW Plt Count Lymph % (Auto) [place] % (Auto) Lymph # Seg Neutrophils % POC ABG pCO2 48.8 H POC ABG pO2 62 L Sodium Potassium Chloride Carbon Dioxide BUN Creatinine Glucose POC Glucose 276 H 182 H Ammonia Total Creatine Kinase CK-MB (CK-2) Rel Index Troponin T Albumin Salicylates Acetaminophen Hepatitis C Antibody 08/14/19 08/14/19 08/14/19 09:52 17:09 17:09 WBC RDW Plt Count Lymph % (Auto) [place] % (Auto) Lymph # Seg Neutrophils % POC ABG pCO2 POC ABG pO2 Sodium 133 L Potassium Chloride 97.4 L Carbon Dioxide 19 L BUN 38 H Creatinine 4.6 H Glucose 127 H POC Glucose 202 H Ammonia 24.0 L Total Creatine Kinase CK-MB (CK-2) Rel Index Troponin T Albumin Salicylates Acetaminophen Hepatitis C Antibody 08/14/19 08/14/19 08/14/19 17:09 17:28 21:58 WBC 20.0 H RDW 17.4 H Plt Count 125 L Lymph % (Auto) [place] % (Auto) Lymph # Seg Neutrophils % POC ABG pCO2 POC ABG pO2 Sodium Potassium Chloride Carbon Dioxide BUN Creatinine Glucose POC Glucose 112 H 107 H Ammonia Total Creatine Kinase CK-MB (CK-2) Rel Index Troponin T Albumin Salicylates Acetaminophen Hepatitis C Antibody 08/15/19 08/15/19 08/15/19 04:57 08:18 16:54 WBC RDW Plt Count Lymph % (Auto) [place] % (Auto) Lymph # Seg Neutrophils % POC ABG pCO2 POC ABG pO2 Sodium Potassium 6.1 H* Chloride Carbon Dioxide BUN 48 H Creatinine 5.6 H Glucose 171 H POC Glucose 298 H 132 H Ammonia Total Creatine Kinase CK-MB (CK-2) Rel Index Troponin T Albumin Salicylates Acetaminophen Hepatitis C Antibody 08/15/19 08/16/19 08/16/19 21:50 04:23 05:01 WBC RDW Plt Count Lymph % (Auto) [place] % (Auto) Lymph # Seg Neutrophils % POC ABG pCO2 POC ABG pO2 Sodium Potassium Chloride Carbon Dioxide BUN 27 H 27 H Creatinine 3.3 H 3.3 H Glucose 314 H 268 H POC Glucose 134 H Ammonia Total Creatine Kinase CK-MB (CK-2) Rel Index Troponin T Albumin Salicylates Acetaminophen Hepatitis C Antibody 08/16/19 08/16/19 08/17/19 11:52 18:41 00:46 WBC RDW Plt Count Lymph % (Auto) [place] % (Auto) Lymph # Seg Neutrophils % POC ABG pCO2 POC ABG pO2 Sodium Potassium Chloride Carbon Dioxide BUN Creatinine Glucose POC Glucose 172 H 125 H 279 H Ammonia Total Creatine Kinase CK-MB (CK-2) Rel Index Troponin T Albumin Salicylates Acetaminophen Hepatitis C Antibody 08/17/19 08/17/19 05:38 11:40 WBC RDW Plt Count Lymph % (Auto) [place] % (Auto) Lymph # Seg Neutrophils % POC ABG pCO2 POC ABG pO2 Sodium Potassium Chloride Carbon Dioxide BUN Creatinine Glucose POC Glucose 112 H 289 H Ammonia Total Creatine Kinase CK-MB (CK-2) Rel Index Troponin T Albumin Salicylates Acetaminophen Hepatitis C Antibody
[2019-08-17] MEDS ORDERED: SODIUM CHLORIDE*PRIMING MACHINE ONLY FOR DIALYSIS MC ONE (15:45)
--- NOTE | 2019-08-17 16:23 | Electroencephalogram Report ---
Electroencephalogram EEG Date of exam: 08/17/19 History: Patient is an 79-year-old woman with a history of hypertension, ESRD on HD, history of seizures, HCV, HCF, diabetes, who p/w seizures and altered mental status. Description: Description: DESCRIPTION OF THE PROCEDURE: Electrodes were applied using Paste technique in positions dictated by [employer] 10-20 system of placement. In addition to EEG data EKG and was recorded. DESCRIPTION OF ACTIVITY: At the onset of this recording, the patient is lying supine. In the background we note a 4-6 Hz theta activity that has an amplitude ranging 20-30uV. Additional low voltage rhythmic delta activity occurs at the anterior head regions bilaterally. There are no asymmetries in amplitude or frequency between hemispheres. Intermittent photic stimulation was not performed. Hyperventilation was not performed. EEG Impression: 1) Generalized slowing. 2) No seizures or epileptiform discharges CLINICAL INTERPRETATION: This routine video EEG, performed is abnormal secondary to above findings and is consistent with bi-hemispheric dysfunction and encephalopathy. The above described finding of diffuse slowing is etiologically non-specific and similar findings have been reported in cases of toxic, metabolic, hypoxic ischemic, infectious, medication, sleep deprivation, dementia,post-ictal state, and other causes of diffuse and multifocal encephalopathy.
[2019-08-17 21:04] LABS: Calcium 8.5 mg/dL (8.4-10.2)
[2019-08-17] MEDS ORDERED: ENOXAPARIN 40 MG/0.4 ML INJ SUB-Q SCH (22:00)
[2019-08-17] MEDS: ENOXAPARIN 30 MG/0.3 ML INJ SUB-Q SCH (22:09)
[2019-08-18] MEDS: INSULIN LISPRO 100 UNIT/ML SUB-Q SCH ×4 (00:17→18:45)
[2019-08-18] MEDS: ACETAMINOPHEN 325 MG TAB PO PRN (04:00)
[2019-08-18 07:07] LABS: Calcium 9.1 mg/dL (8.4-10.2)
[2019-08-18 07:09] LABS: Albumin 2.2 g/dL (3.9-5); Bilirubin,Direct 0.4 mg/dL (0-0.2)
[2019-08-18 07:54] LABS: Hematocrit 26.8 % (30.3-42.9); Hemoglobin 8.7 gm/dl (10.1-14.3); Mean Corpuscular HGB Conc 33 % (30-34); Mean Corpuscular Volume 89 fl (79-97); Platelet Count 100 K/mm3 (140-440); Red Cell Distribution Width 16.2 % (13.2-15.2)
[2019-08-18] MEDS: hydrALAZINE 100 MG TAB PO SCH ×3 (08:26→22:30)
--- NOTE | 2019-08-18 10:01 | Progress Note ---
Assessment and Plan Assessment and plan: 79-year-old woman who presents to the hospital for reported seizures and altered mental status. Her family called 911 after they witnessed her having seizures. Unfortunately we do not have documentation of what the seizures actually looks like but apparently patient was unconscious and had some form of abnormal movements. 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 Low-grade fever was reported overnight Review of systems Constitutional:, She has been having fevers on and off during this admission, no malaise, no joint pains CVS: No chest pain, no orthopnea, no pedal edema GI: No abdominal pain, no diarrhea, no vomiting, no constipation Respiratory: , no wheezing, no coughing Hospitalist Physical - Physical exam Narrative exam: General.: Appears well, no distress, nontoxic HEENT: Moist mucous membranes, extraocular muscles intact, no lymphadenopathy Neck: supple Cardiac: S1-S2 heard Lungs: clear to auscultation bilaterally Abdomen: soft , nontender, nondistended, bowel sounds positive Extremities: no edema clubbing or cyanosis Skin: no rash or lesions Neurologic: She is awake and alert, obeys commands, moves extremities, has had weakness of her lower extremities for months now Psych, calm and cooperative - Constitutional Vitals: Temp Pulse Resp BP Pulse Ox 99.3 F 76 20 142/49 100 08/18/19 07:42 08/18/19 07:42 08/18/19 07:42 08/18/19 07:42 08/18/19 08:36 General appearance: Present: no acute distress Results - Labs CBC & Chem 7: 08/18/19 06:22 08/18/19 05:48 Labs: Laboratory Last Values WBC 6.5 K/mm3 (4.5-11.0) 08/18/19 06:22 RBC 3.00 M/mm3 (3.65-5.03) L 08/18/19 06:22 Hgb 8.7 gm/dl (10.1-14.3) L 08/18/19 06:22 Hct 26.8 % (30.3-42.9) L 08/18/19 06:22 MCV 89 fl (79-97) 08/18/19 06:22 MCH 29 pg (28-32) 08/18/19 06:22 MCHC 33 % (30-34) 08/18/19 06:22 RDW 16.2 % (13.2-15.2) H 08/18/19 06:22 Plt Count 100 K/mm3 (140-440) L 08/18/19 06:22 Lymph % (Auto) Director Of Design 08/18/19 06:22 [place] % (Auto) Director Of Design 08/18/19 06:22 Eos % (Auto) Director Of Design 08/18/19 06:22 Baso % (Auto) Director Of Design 08/18/19 06:22 Lymph # Director Of Design 08/18/19 06:22 [place] # Director Of Design 08/18/19 06:22 Eos # Director Of Design 08/18/19 06:22 Baso # Director Of Design 08/18/19 06:22 Seg Neutrophils % Director Of Design 08/18/19 06:22 Seg Neutrophils # Director Of Design 08/18/19 06:22 PT 12.3 Sec. (12.2-14.9) 08/12/19 17:14 INR 0.92 (0.87-1.13) 08/12/19 17:14 APTT 30.3 Sec. (24.2-36.6) 08/12/19 17:14 POC ABG pH 7.376 (7.35-7.45) 08/13/19 22:54 POC ABG pCO2 48.8 (35-45) H 08/13/19 22:54 POC ABG pO2 62 (80-105) L 08/13/19 22:54 POC ABG HCO3 28.6 (22-26 mml/L) 08/13/19 22:54 POC ABG Total CO2 30 (23-27mmol/L) 08/13/19 22:54 POC ABG O2 Sat 91 08/13/19 22:54 POC ABG Base Excess 3 ((-2) - (+3)mmol/L) 08/13/19 22:54 FiO2 100 % 08/13/19 22:54 Sodium 136 mmol/L (137-145) L 08/18/19 05:48 Potassium 3.8 mmol/L (3.6-5.0) 08/18/19 05:48 Chloride 96.0 mmol/L (98-107) L 08/18/19 05:48 Carbon Dioxide 24 mmol/L (22-30) 08/18/19 05:48 Anion Gap 20 mmol/L 08/18/19 05:48 BUN 33 mg/dL (7-17) H 08/18/19 05:48 Creatinine 2.6 mg/dL (0.7-1.2) H 08/18/19 05:48 Estimated GFR 21 ml/min 08/18/19 05:48 BUN/Creatinine Ratio 13 % 08/18/19 05:48 Glucose 140 mg/dL (65-100) H 08/18/19 05:48 POC Glucose 262 (70-105) H 08/18/19 06:28 Lactic Acid 1.20 mmol/L (0.7-2.0) 08/12/19 17:14 Calcium 9.1 mg/dL (8.4-10.2) 08/18/19 05:48 Phosphorus 3.00 mg/dL (2.5-4.5) 08/18/19 05:48 Magnesium 1.70 mg/dL (1.7-2.3) 08/18/19 05:48 Total Bilirubin 0.90 mg/dL (0.1-1.2) 08/18/19 05:48 Direct Bilirubin 0.4 mg/dL (0-0.2) H 08/18/19 05:48 Indirect Bilirubin 0.5 mg/dL 08/18/19 05:48 AST 33 units/L (5-40) 08/18/19 05:48 ALT 25 units/L (7-56) 08/18/19 05:48 Alkaline Phosphatase 75 units/L (35-129) 08/18/19 05:48 Ammonia 24.0 umol/L (25-60) L 08/14/19 17:09 Total Creatine Kinase 25 units/L (30-135) L 08/13/19 05:03 CK-MB (CK-2) 3.5 ng/mL (0.0-4.0) 08/13/19 05:03 CK-MB (CK-2) Rel Index 14.0 (0-4) H 08/13/19 05:03 Troponin T 0.118 ng/mL (0.00-0.029) H* 08/13/19 05:03 Total Protein 6.0 g/dL (6.3-8.2) L 08/18/19 05:48 Albumin 2.2 g/dL (3.9-5) L 08/18/19 05:48 Albumin/Globulin Ratio 0.6 % 08/18/19 05:48 Triglycerides 73 mg/dL (2-149) 08/12/19 17:14 Cholesterol 108 mg/dL (50-199) 08/12/19 17:14 LDL Cholesterol Direct 51 mg/dL (50-130) 08/12/19 17:14 HDL Cholesterol 51 mg/dL (40-59) 08/12/19 17:14 Cholesterol/HDL Ratio 2.11 % 08/12/19 17:14 TSH 2.430 mlU/mL (0.270-4.200) 08/12/19 17:15 Urine Color Yellow (Yellow) 08/12/19 17:19 Urine Turbidity Slightly-cloudy (Clear) 08/12/19 17:19 Urine pH 6.0 (5.0-7.0) 08/12/19 17:19 Ur Specific [place] 1.012 (1.003-1.030) 08/12/19 17:19 Urine Protein 100 mg/dl mg/dL (Negative) 08/12/19 17:19 Urine Glucose (UA) Neg mg/dL (Negative) 08/12/19 17:19 Urine Ketones Neg mg/dL (Negative) 08/12/19 17:19 Urine Blood Neg (Negative) 08/12/19 17:19 Urine Nitrite Neg (Negative) 08/12/19 17:19 Urine Bilirubin Neg (Negative) 08/12/19 17:19 Urine Urobilinogen 2.0 mg/dL (<2.0) 08/12/19 17:19 Ur Leukocyte Esterase Neg (Negative) 08/12/19 17:19 Urine WBC (Auto) 2.0 /HPF (0.0-6.0) 08/12/19 17:19 Urine RBC (Auto) 1.0 /HPF (0.0-6.0) 08/12/19 17:19 U Epithel Cells (Auto) 12.0 /HPF (0-13.0) 08/12/19 17:19 Urine Bacteria (Auto) 1+ /HPF (Negative) 08/12/19 17:19 Salicylates < 0.3 mg/dL (2.8-20.0) L 08/12/19 17:15 Urine Opiates Screen Presumptive negative 08/12/19 17:19 Urine Methadone Screen Presumptive negative 08/12/19 17:19 Acetaminophen < 5.0 ug/mL (10.0-30.0) L 08/12/19 17:14 Ur Barbiturates Screen Presumptive negative 08/12/19 17:19 Ur Phencyclidine Scrn Presumptive negative 08/12/19 17:19 Ur Amphetamines Screen Presumptive negative 08/12/19 17:19 U Benzodiazepines Scrn Presumptive negative 08/12/19 17:19 Urine Cocaine Screen Presumptive negative 08/12/19 17:19 U Marijuana (THC) Screen Presumptive negative 08/12/19 17:19 Drugs of Abuse Note Disclamer 08/12/19 17:19 Plasma/Serum Alcohol < 0.01 % (0-0.07) 08/12/19 17:15 Hepatitis A IgM Ab Non-reactive (NonReactive) 08/13/19 15:05 Hep Bs Antigen Non-reactive (Negative) 08/13/19 15:05 Hep B Core IgM Ab Non-reactive (NonReactive) 08/13/19 15:05 Hepatitis C Antibody Reactive (NonReactive) A 08/13/19 15:05 Blood Type A POSITIVE 08/12/19 17:00 Antibody Screen Negative 08/12/19 17:00 Active Medications - Current Medications Current Medications: Generic Name Dose Route Start Last Admin Trade Name Freq PRN Reason Stop Dose Admin Acetaminophen 650 mg 08/12/19 23:24 08/18/19 04:00 Tylenol PO 650 mg Q4H PRN Administration Pain MILD(1-3)/Fever >100.5/VERDE Amlodipine Besylate 10 mg 08/13/19 10:00 08/17/19 09:28 Amlodipine PO 10 mg QDAY BUTCH Administration Lipase/Protease/Amylase 1 each 08/15/19 12:14 Pancresabrina Goldberg 10,500 Unit FEEDTUBE PRN PRN For Clogged Feeding Tube Dextrose 50 ml 08/13/19 01:03 D50w (25gm) Syringe IV Q30MIN PRN Hypoglycemia Protocol Enoxaparin Sodium 30 mg 08/17/19 22:00 08/17/19 22:09 Enoxaparin SUB-Q 30 mg QDAY@2200 BUTCH Administration Hydralazine HCl 100 mg 08/13/19 09:14 08/17/19 22:09 Apresoline PO Not Given TID BUTCH Hydralazine HCl 10 mg 08/13/19 09:15 08/15/19 04:30 Apresoline IV 10 mg Q4HR PRN Administration Blood Pressure Dextrose/Sodium Chloride 1,000 mls @ 42 mls/hr 08/13/19 13:00 08/16/19 14:23 D5ns IV 42 mls/hr DIRECT BUTCH Administration Sodium Chloride 100 mls @ 999 mls/hr 08/13/19 13:21 Nacl 0.9% IV ALANA PRN Hypotension Insulin Human Lispro 0 unit 08/16/19 06:00 08/18/19 06:43 Humalog SUB-Q 4 unit Q6HR BUTCH Administration Protocol Lacosamide 50 mg 08/16/19 22:00 08/17/19 22:08 Vimpat FEEDTUBE 50 mg Q12HR BUTCH Administration Levetiracetam 500 mg 08/16/19 22:00 08/17/19 22:07 Keppra PO 500 mg BID BUTCH Administration Lorazepam 1 mg 08/12/19 23:26 Ativan IV Q4H PRN Seizures Ondansetron HCl 4 mg 08/12/19 23:24 Zofran IV Q8H PRN Nausea And Vomiting Simple Syrup 15 ml 08/15/19 12:14 Simple Syrup FEEDTUBE PRN PRN Hypoglycemia Simple Syrup 30 ml 08/15/19 12:14 Simple Syrup FEEDTUBE PRN PRN Hypoglycemia Sodium Bicarbonate 325 mg 08/15/19 12:14 Sodium Bicarbonate FEEDTUBE PRN PRN For Clogged Feeding Tube Sodium Chloride 10 ml 08/13/19 10:00 08/17/19 22:08 Sodium Chloride Flush Syringe 10 Ml IV 10 ml BID BUTCH Administration Sodium Chloride 10 ml 08/12/19 23:24 Sodium Chloride Flush Syringe 10 Ml IV PRN PRN LINE FLUSH Nutrition/Malnutrition Assess - Dietary Evaluation Nutrition/Malnutrition Findings: Nutrition Notes Start: 08/13/19 12:15 Freq: Status: Active Protocol: Document 08/17/19 12:13 LM (Rec: 08/17/19 12:24 LM [id number]) Nutrition Notes Initial or Follow up Reassessment Current Diagnosis CKD (stage V CKD),Diabetes, Hypertension,Heart Failure Other Pertinent Diagnosis on HD, AMS Current Diet Mechanical soft Labs/Tests POC glu 112 Pertinent Medications Reviewed Height 5 ft 5 in Weight 51.256 kg [place] Body Weight (kg) 56.81 BMI 18.8 Subjective/Other Information Pt passed swallow eval and diet was advanced to mechanical soft with thin liquids. TF still hanging but turned off. Pt asleep at time of visit and lunch tray apeared untouched. Per RN note pt ate 35% of tray yesterday. Percent of energy/protein needs met: 0%/0% Burn Absent Trauma Absent GI Symptoms None Minimum of two criteria No Reduced Irrigator Sprinkling System Strength Measurably Reduced (severe) #1 Nutrition Diagnosis Inadequate oral intake As Evidenced by Signs and Symptoms pt passed swallow eval, diet advanced to mechanical soft Diagnosis Progress(for reassessment Improved documentation) Is patient on ventilator? No Is Patient Ambulatory and/or Out of Bed No REE-([facility]-confined to bed) 1187.184 Kcal/Kg value to use for calculation 30 Approximate Energy Requirements Using 1538 kcal/Kg Additional Notes Protein needs are > 61g (>1.2g /kg) Fluid needs are 1000-1500ml Nutrition Intervention Change Diet Order: Mechanical soft Goal #1 Meet at least 80% of kcal and protein needs via PO intakes Anticipated Discharge Needs: Mechanical soft Follow-Up By: 08/19/19 Additional Comments F/U for PO intakes/ ONS needs
[2019-08-18] MEDS: LACOSAMIDE 50 MG TAB FEEDTUBE SCH ×2 (10:19→22:30)
[2019-08-18] MEDS: levETIRAcetam 500 MG TAB PO SCH ×2 (10:20→22:30)
[2019-08-18] MEDS: amLODIPine 10 MG TAB PO SCH (10:20)
--- NOTE | 2019-08-18 13:47 | Progress Note ---
Assessment and Plan Patient is an 79-year-old woman with a history of hypertension, ESRD on HD, history of seizures, HCV, HCF, diabetes, who p/w seizures and altered mental status. According to the patient's clinical findings, it is likely that the patient has metabolic encephalopathy, in setting of elevated WBC, and fevers. Plan: 1. Altered mental status - mental status improved. - Likely in setting of metabolic encephalopathy - Patient noted to have elevated WBC, and low-grade fevers. Further workup per primary/ID teams. - Cont. keppra dose 500mg BID, with additional 500mg to be given after each HD. - Continue home medication of Vimpat, 50mg BID. - MRI brain unremarkable - MRI C-spine results reviewed, no evidence of acute spinal cord compression. Recommend outpatient f/u with neurosurgery. - EEG: no seizures or epilpetiform activity. Generalized slowing. - Continue to correct metabolic/infectious abnormalities per primary team - PT/OT - Will sign off. Please call with any questions. Thank you for allowing me to take part in the care of this patient. Amrik Owens MD Neurology Subjective Date of service: 08/18/19 Principal diagnosis: esrd, post ictal state Interval history: Patient had a low-grade fever overnight. Objective - Exam Narrative Exam: Patient is alert, awake, oriented x4. Follows complex commands. PERRL, EOMI, VFF, no facial weakness noted, tongue midline, b/l intact to LT. 3/5 strength proximally in all extremities, 4/5 distally. b/l intact to LT. Due to weakness unable to assess FTN and HTS. 2+ reflexes throughout. No dysarthria or aphasia noted. - Vital Sign Vital Signs - 12hr 08/18/19 08/18/19 08/18/19 02:39 07:42 08:36 Temperature 100.3 F H 99.3 F Pulse Rate 76 Respiratory 20 20 Rate Blood Pressure 142/53 142/49 O2 Sat by Pulse 100 100 Oximetry 08/18/19 08/18/19 10:20 12:55 Temperature 98.2 F Pulse Rate 76 87 Respiratory 20 Rate Blood Pressure 142/49 154/55 O2 Sat by Pulse 100 Oximetry - General Apperance Constitutional: comfortable - EENT EENT: ATNC, PERRL, mucous membranes moist, hearing intact, vision intact - Respiratory Respiratory: lungs clear, normal breath sounds - Cardiovascular Cardiovascular: regular rate, normal S1, normal S2 Extremities: no clubbing, cyanosis, no inflammation - Gastrointestinal Gastrointestinal: normoactive bowel sounds, soft, non-tender - Integumentary Integumentary: normal - Musculoskeletal Musculoskeletal: no fluid collection, no pain - Psychiatric Psychiatric: mood/affect appropriate - Laboratory Findings CBC and BMP: 08/18/19 06:22 08/18/19 05:48 Abnormal Lab Findings: Abnormal Labs 08/12/19 08/12/19 08/12/19 16:46 17:14 17:14 WBC RBC Hgb Hct RDW 16.9 H Plt Count 86 L Lymph % (Auto) 12.8 L [place] % (Auto) 12.1 H Lymph # 0.8 L Seg Neutrophils % 73.1 H POC ABG pCO2 POC ABG pO2 Sodium Potassium 5.3 H Chloride Carbon Dioxide BUN 35 H Creatinine 5.1 H Glucose 126 H POC Glucose 137 H Direct Bilirubin Ammonia Total Creatine Kinase CK-MB (CK-2) Rel Index Troponin T 0.102 H* Total Protein Albumin 3.4 L Salicylates Acetaminophen Hepatitis C Antibody 08/12/19 08/12/19 08/13/19 17:14 17:15 01:33 WBC RBC Hgb Hct RDW Plt Count Lymph % (Auto) [place] % (Auto) Lymph # Seg Neutrophils % POC ABG pCO2 POC ABG pO2 Sodium Potassium Chloride Carbon Dioxide BUN Creatinine Glucose POC Glucose Direct Bilirubin Ammonia Total Creatine Kinase 23 L CK-MB (CK-2) Rel Index 16.0 H Troponin T 0.115 H* Total Protein Albumin Salicylates < 0.3 L Acetaminophen < 5.0 L Hepatitis C Antibody 08/13/19 08/13/19 08/13/19 02:15 02:15 05:03 WBC RBC Hgb Hct RDW 17.0 H Plt Count 93 L Lymph % (Auto) [place] % (Auto) 10.5 H Lymph # 0.9 L Seg Neutrophils % 72.4 H POC ABG pCO2 POC ABG pO2 Sodium Potassium 5.6 H Chloride Carbon Dioxide BUN 38 H Creatinine 5.6 H Glucose 121 H POC Glucose Direct Bilirubin Ammonia Total Creatine Kinase 25 L CK-MB (CK-2) Rel Index 14.0 H Troponin T 0.118 H* Total Protein Albumin Salicylates Acetaminophen Hepatitis C Antibody 08/13/19 08/13/19 08/13/19 15:05 16:52 22:24 WBC RBC Hgb Hct RDW Plt Count Lymph % (Auto) [place] % (Auto) Lymph # Seg Neutrophils % POC ABG pCO2 POC ABG pO2 Sodium Potassium Chloride Carbon Dioxide BUN Creatinine Glucose POC Glucose 148 H 191 H Direct Bilirubin Ammonia Total Creatine Kinase CK-MB (CK-2) Rel Index Troponin T Total Protein Albumin Salicylates Acetaminophen Hepatitis C Antibody Reactive A 08/13/19 08/14/19 08/14/19 22:54 02:39 06:15 WBC RBC Hgb Hct RDW Plt Count Lymph % (Auto) [place] % (Auto) Lymph # Seg Neutrophils % POC ABG pCO2 48.8 H POC ABG pO2 62 L Sodium Potassium Chloride Carbon Dioxide BUN Creatinine Glucose POC Glucose 276 H 182 H Direct Bilirubin Ammonia Total Creatine Kinase CK-MB (CK-2) Rel Index Troponin T Total Protein Albumin Salicylates Acetaminophen Hepatitis C Antibody 08/14/19 08/14/19 08/14/19 09:52 17:09 17:09 WBC RBC Hgb Hct RDW Plt Count Lymph % (Auto) [place] % (Auto) Lymph # Seg Neutrophils % POC ABG pCO2 POC ABG pO2 Sodium 133 L Potassium Chloride 97.4 L Carbon Dioxide 19 L BUN 38 H Creatinine 4.6 H Glucose 127 H POC Glucose 202 H Direct Bilirubin Ammonia 24.0 L Total Creatine Kinase CK-MB (CK-2) Rel Index Troponin T Total Protein Albumin Salicylates Acetaminophen Hepatitis C Antibody 08/14/19 08/14/19 08/14/19 17:09 17:28 21:58 WBC 20.0 H RBC Hgb Hct RDW 17.4 H Plt Count 125 L Lymph % (Auto) [place] % (Auto) Lymph # Seg Neutrophils % POC ABG pCO2 POC ABG pO2 Sodium Potassium Chloride Carbon Dioxide BUN Creatinine Glucose POC Glucose 112 H 107 H Direct Bilirubin Ammonia Total Creatine Kinase CK-MB (CK-2) Rel Index Troponin T Total Protein Albumin Salicylates Acetaminophen Hepatitis C Antibody 08/15/19 08/15/19 08/15/19 04:57 08:18 16:54 WBC RBC Hgb Hct RDW Plt Count Lymph % (Auto) [place] % (Auto) Lymph # Seg Neutrophils % POC ABG pCO2 POC ABG pO2 Sodium Potassium 6.1 H* Chloride Carbon Dioxide BUN 48 H Creatinine 5.6 H Glucose 171 H POC Glucose 298 H 132 H Direct Bilirubin Ammonia Total Creatine Kinase CK-MB (CK-2) Rel Index Troponin T Total Protein Albumin Salicylates Acetaminophen Hepatitis C Antibody 08/15/19 08/16/19 08/16/19 21:50 04:23 05:01 WBC RBC Hgb Hct RDW Plt Count Lymph % (Auto) [place] % (Auto) Lymph # Seg Neutrophils % POC ABG pCO2 POC ABG pO2 Sodium Potassium Chloride Carbon Dioxide BUN 27 H 27 H Creatinine 3.3 H 3.3 H Glucose 314 H 268 H POC Glucose 134 H Direct Bilirubin Ammonia Total Creatine Kinase CK-MB (CK-2) Rel Index Troponin T Total Protein Albumin Salicylates Acetaminophen Hepatitis C Antibody 08/16/19 08/16/19 08/17/19 11:52 18:41 00:46 WBC RBC Hgb Hct RDW Plt Count Lymph % (Auto) [place] % (Auto) Lymph # Seg Neutrophils % POC ABG pCO2 POC ABG pO2 Sodium Potassium Chloride Carbon Dioxide BUN Creatinine Glucose POC Glucose 172 H 125 H 279 H Direct Bilirubin Ammonia Total Creatine Kinase CK-MB (CK-2) Rel Index Troponin T Total Protein Albumin Salicylates Acetaminophen Hepatitis C Antibody 08/17/19 08/17/19 08/17/19 05:38 11:40 17:46 WBC RBC Hgb Hct RDW Plt Count Lymph % (Auto) [place] % (Auto) Lymph # Seg Neutrophils % POC ABG pCO2 POC ABG pO2 Sodium Potassium Chloride Carbon Dioxide BUN Creatinine Glucose POC Glucose 112 H 289 H 140 H Direct Bilirubin Ammonia Total Creatine Kinase CK-MB (CK-2) Rel Index Troponin T Total Protein Albumin Salicylates Acetaminophen Hepatitis C Antibody 08/17/19 08/18/19 08/18/19 20:22 00:12 05:48 WBC RBC Hgb Hct RDW Plt Count Lymph % (Auto) [place] % (Auto) Lymph # Seg Neutrophils % POC ABG pCO2 POC ABG pO2 Sodium 135 L 136 L Potassium Chloride 95.4 L 96.0 L Carbon Dioxide BUN 20 H 33 H Creatinine 2.0 H 2.6 H Glucose 284 H 140 H POC Glucose 224 H Direct Bilirubin Ammonia Total Creatine Kinase CK-MB (CK-2) Rel Index Troponin T Total Protein Albumin Salicylates Acetaminophen Hepatitis C Antibody 08/18/19 08/18/19 08/18/19 05:48 06:22 06:28 WBC RBC 3.00 L Hgb 8.7 L Hct 26.8 L RDW 16.2 H Plt Count 100 L Lymph % (Auto) [place] % (Auto) Lymph # Seg Neutrophils % POC ABG pCO2 POC ABG pO2 Sodium Potassium Chloride Carbon Dioxide BUN Creatinine Glucose POC Glucose 262 H Direct Bilirubin 0.4 H Ammonia Total Creatine Kinase CK-MB (CK-2) Rel Index Troponin T Total Protein 6.0 L Albumin 2.2 L Salicylates Acetaminophen Hepatitis C Antibody 08/18/19 12:13 WBC RBC Hgb Hct RDW Plt Count Lymph % (Auto) [place] % (Auto) Lymph # Seg Neutrophils % POC ABG pCO2 POC ABG pO2 Sodium Potassium Chloride Carbon Dioxide BUN Creatinine Glucose POC Glucose 251 H Direct Bilirubin [place]mon[place] Total Creatine Kinase CK-MB (CK-2) Rel Index Troponin T Total Protein Albumin Salicylates Acetaminophen Hepatitis C Antibody
--- NOTE | 2019-08-18 16:37 | Progress Note ---
Assessment and Plan Impression * End-stage renal disease on maintenance hemodialysis * AMS, improving * Hypertension * Type II diabetes mellitus * History of seizure disorder * Hepatitis C * Thrombocytopenia Recommendations * Continue hemodialysis MWF, due tomorrow * UF as tolerated * BP reasonable, continue current regimen * Hemoglobin at goal, no need for MERVAT * Avoid nephrotoxins * seizure management per primary team/neurology, appreciate recs, has improved * Adjust diet and meds for ESRD state * No IV, BP or venipuncture and her access arm * Cardiology recommendations reviewed Subjective Date of service: 08/18/19 Principal diagnosis: esrd, post ictal state Interval history: No acute events noted. Patient remains at better mentation. Denies any concerns or questions today. No dyspnea, chest pain, issues with HD noted previously. Objective - Exam Narrative Exam: General appearance: alert and oriented, in no acute distress, chronically frail appearing Head: atraumatic, normocephalic Eye: PERRL Neck:normal ROM Respiratory: clear breath sounds bilaterally Cardiovascular: normal rhythm, noted systolic murmur GI/Abdominal: soft. nondistended, no tenderness Extremities: upper extremity AV fistula with no redness Neurological: no focal deficits noted today Skin: warm, dry, intact - Vital Signs Vital signs: Vital Signs - 12hr 08/18/19 08/18/19 08/18/19 07:42 08:36 10:00 Temperature 99.3 F Pulse Rate 76 Pulse Rate [ 87 Apical] Respiratory 20 Rate Blood Pressure 142/49 O2 Sat by Pulse 100 100 Oximetry 08/18/19 08/18/19 10:20 12:55 Temperature 98.2 F Pulse Rate 76 87 Pulse Rate [ Apical] Respiratory 20 Rate Blood Pressure 142/49 154/55 O2 Sat by Pulse 100 Oximetry - Lab 08/18/19 06:22 08/18/19 05:48 Most recent lab results Calcium 9.1 mg/dL (8.4-10.2) 08/18/19 05:48 Phosphorus 3.00 mg/dL (2.5-4.5) 08/18/19 05:48 Magnesium 1.70 mg/dL (1.7-2.3) 08/18/19 05:48 Medications & Allergies - Medications Allergies/Adverse Reactions: Allergies No Known Allergies Allergy (Unverified 02/02/18 15:43) Home Medications: Home Medications Medication Instructions Recorded Confirmed Last Taken Type Aspirin 81 mg PO DAILY 08/13/18 08/17/19 08/11/18 History Baclofen 10 mg PO TID 08/13/18 08/17/19 08/11/18 History RX: Tizanidine HCl [Zanaflex 4mg 4 mg PO TID 08/13/18 08/17/19 08/11/18 History CAP] RX: amLODIPine 10 mg PO DAILY 08/13/18 08/17/19 08/11/18 History RX: Lacosamide [Vimpat] 50 mg PO Q12HR #60 tablet 08/18/18 08/17/19 Unknown Rx RX: Acetaminophen [Acetaminophen 650 mg PO Q4H PRN tablet 09/02/18 08/17/19 Unknown Rx TAB] RX: Aspirin [Aspirin BABY CHEW TAB] 81 mg PO DAILY tab.chew 09/02/18 08/17/19 Unknown Rx RX: Famotidine [Pepcid] 10 mg PO BID tablet 09/02/18 08/17/19 Unknown Rx RX: Lispro Insulin [HumaLOG] 0 unit SUB-Q ACHS units 09/02/18 08/17/19 Unknown Rx RX: Gabapentin 100 mg PO Q12H #60 capsule 10/15/18 08/17/19 Unknown Rx RX: ISOSORBIDE MONOnitrate [Imdur 60 mg PO DAILY tablet 10/15/18 08/17/19 Unknown Rx ER] RX: Insulin Regular, Human 0 units SUB-Q QHS units 10/15/18 08/17/19 Unknown Rx [HumuLIN R] RX: Lisinopril [Zestril TAB] 40 mg PO DAILY tablet 10/15/18 08/17/19 Unknown Rx RX: carvediloL [Coreg] 12.5 mg PO BID tablet 10/15/18 08/17/19 Unknown Rx RX: cloNIDine [Catapres] 0.2 mg PO BID tablet 10/15/18 08/17/19 Unknown Rx RX: Losartan [Cozaar] 50 mg PO QDAY #30 tablet 11/01/18 08/17/19 Unknown Rx RX: oxyCODONE /ACETAMINOPHEN 1 tab PO Q6H PRN #12 tablet 11/01/18 08/17/19 Unknown Rx [Percocet 5/325 mg] levETIRAcetam [Keppra TAB] 750 mg PO BID #60 tablet 11/01/18 08/17/19 Unknown Rx Active Medications: Generic Name Dose Route Start Last Admin Trade Name Freq PRN Reason Stop Dose Admin Acetaminophen 650 mg 08/12/19 23:24 08/18/19 04:00 Tylenol PO 650 mg Q4H PRN Administration Pain MILD(1-3)/Fever >100.5/VERDE Amlodipine Besylate 10 mg 08/13/19 10:00 08/18/19 10:20 Amlodipine PO 10 mg QDAY BUTCH Administration Lipase/Protease/Amylase 1 each 08/15/19 12:14 Pancreaze 10,500 Unit FEEDTUBE PRN PRN For Clogged Feeding Tube Dextrose 50 ml 08/13/19 01:03 D50w (25gm) Syringe IV Q30MIN PRN Hypoglycemia Protocol Enoxaparin Sodium 30 mg 08/17/19 22:00 08/17/19 22:09 Enoxaparin SUB-Q 30 mg QDAY@2200 BUTCH Administration Hydralazine HCl 100 mg 08/13/19 09:14 08/18/19 13:43 Apresoline PO 100 mg TID BUTCH Administration Hydralazine HCl 10 mg 08/13/19 09:15 08/15/19 04:30 Apresoline IV 10 mg Q4HR PRN Administration Blood Pressure Sodium Chloride 100 mls @ 999 mls/hr 08/13/19 13:21 Nacl 0.9% IV ALANA PRN Hypotension Insulin Human Lispro 0 unit 08/16/19 06:00 08/18/19 12:41 Humalog SUB-Q 4 unit Q6HR BUTCH Administration Protocol Lacosamide 50 mg 08/16/19 22:00 08/18/19 10:19 Vimpat FEEDTUBE 50 mg Q12HR BUTCH Administration Levetiracetam 500 mg 08/16/19 22:00 08/18/19 10:20 Keppra PO 500 mg BID BUTCH Administration Lorazepam 1 mg 08/12/19 23:26 Ativan IV Q4H PRN Seizures Ondansetron HCl 4 mg 08/12/19 23:24 Zofran IV Q8H PRN Nausea And Vomiting Simple Syrup 15 ml 08/15/19 12:14 Simple Syrup FEEDTUBE PRN PRN Hypoglycemia Simple Syrup 30 ml 08/15/19 12:14 Simple Syrup FEEDTUBE PRN PRN Hypoglycemia Sodium Bicarbonate 325 mg 08/15/19 12:14 Sodium Bicarbonate FEEDTUBE PRN PRN For Clogged Feeding Tube Sodium Chloride 10 ml 08/13/19 10:00 08/18/19 10:20 Sodium Chloride Flush Syringe 10 Ml IV 10 ml BID BUTCH Administration Sodium Chloride 10 ml 08/12/19 23:24 Sodium Chloride Flush Syringe 10 Ml IV PRN PRN LINE FLUSH
[2019-08-18] MEDS: ENOXAPARIN 30 MG/0.3 ML INJ SUB-Q SCH (22:30)
[2019-08-19] MEDS: INSULIN LISPRO 100 UNIT/ML SUB-Q SCH ×4 (00:55→18:27)
[2019-08-19 04:55] LABS: Calcium 9.7 mg/dL (8.4-10.2)
--- NOTE | 2019-08-19 08:54 | Progress Note ---
Assessment and Plan Impression * End-stage renal disease on maintenance hemodialysis * AMS, improving * Hypertension * Type II diabetes mellitus * History of seizure disorder * Hepatitis C * Thrombocytopenia Recommendations * Continue hemodialysis MWF, due today * UF as tolerated * BP reasonable, continue current regimen * Hemoglobin below goal, will start MERVAT, would ensure no bleeding * Avoid nephrotoxins * seizure management per primary team/neurology, appreciate recs, has improved * Adjust diet and meds for ESRD state * No IV, BP or venipuncture and her access arm * Cardiology recommendations reviewed Subjective Date of service: 08/19/19 Principal diagnosis: esrd, post ictal state Interval history: No acute events noted. Patient remains at better mentation although does not remember all details from past 1-2 days. Denies any concerns or questions today. No dyspnea, chest pain, issues with HD noted previously. Objective - Exam Narrative Exam: General appearance: alert and oriented, in no acute distress, chronically frail appearing Head: atraumatic, normocephalic Eye: PERRL Neck:normal ROM Respiratory: clear breath sounds bilaterally Cardiovascular: normal rhythm, noted systolic murmur GI/Abdominal: soft. nondistended, no tenderness Extremities: upper extremity AV fistula with no redness Neurological: no focal deficits noted today Skin: warm, dry, intact - Vital Signs Vital signs: Vital Signs - 12hr 08/18/19 08/19/19 08/19/19 20:56 01:43 02:33 Temperature 98.3 F Pulse Rate 78 Pulse Rate [ 88 Apical] Respiratory 20 Rate Blood Pressure O2 Sat by Pulse 97 92 100 Oximetry 08/19/19 08/19/19 07:16 08:52 Temperature 98.8 F Pulse Rate 87 Pulse Rate [ Apical] Respiratory 20 Rate Blood Pressure 142/52 O2 Sat by Pulse 99 100 Oximetry - Lab 08/18/19 06:22 08/19/19 04:20 Most recent lab results Calcium 9.7 mg/dL (8.4-10.2) 08/19/19 04:20 Phosphorus 3.00 mg/dL (2.5-4.5) 08/18/19 05:48 Magnesium 1.70 mg/dL (1.7-2.3) 08/18/19 05:48 Medications & Allergies - Medications Allergies/Adverse Reactions: Allergies No Known Allergies Allergy (Unverified 02/02/18 15:43) Home Medications: Home Medications Medication Instructions Recorded Confirmed Last Taken Type Aspirin 81 mg PO DAILY 08/13/18 08/17/19 08/11/18 History Baclofen 10 mg PO TID 08/13/18 08/17/19 08/11/18 History Tizanidine HCl [Zanaflex 4mg CAP] 4 mg PO TID 08/13/18 08/17/19 08/11/18 History amLODIPine 10 mg PO DAILY 08/13/18 08/17/19 08/11/18 History Lacosamide [Vimpat] 50 mg PO Q12HR #60 tablet 08/18/18 08/17/19 Unknown Rx Acetaminophen [Acetaminophen TAB] 650 mg PO Q4H PRN tablet 09/02/18 08/17/19 Unknown Rx Aspirin [Aspirin BABY CHEW TAB] 81 mg PO DAILY tab.chew 09/02/18 08/17/19 Unknown Rx Famotidine [Pepcid] 10 mg PO BID tablet 09/02/18 08/17/19 Unknown Rx Lispro Insulin [HumaLOG] 0 unit SUB-Q ACHS units 09/02/18 08/17/19 Unknown Rx Gabapentin 100 mg PO Q12H #60 capsule 10/15/18 08/17/19 Unknown Rx ISOSORBIDE MONOnitrate [Imdur ER] 60 mg PO DAILY tablet 10/15/18 08/17/19 Unknown Rx Insulin Regular, Human [HumuLIN R] 0 units SUB-Q QHS units 10/15/18 08/17/19 Unknown Rx Lisinopril [Zestril TAB] 40 mg PO DAILY tablet 10/15/18 08/17/19 Unknown Rx carvediloL [Coreg] 12.5 mg PO BID tablet 10/15/18 08/17/19 Unknown Rx cloNIDine [Catapres] 0.2 mg PO BID tablet 10/15/18 08/17/19 Unknown Rx Losartan [Cozaar] 50 mg PO QDAY #30 tablet 11/01/18 08/17/19 Unknown Rx levETIRAcetam [Keppra TAB] 750 mg PO BID #60 tablet 11/01/18 08/17/19 Unknown Rx oxyCODONE /ACETAMINOPHEN [Percocet 1 tab PO Q6H PRN #12 tablet 11/01/18 08/17/19 Unknown Rx 5/325 mg] Active Medications: Generic Name Dose Route Start Last Admin Trade Name Freq PRN Reason Stop Dose Admin Acetaminophen 650 mg 08/12/19 23:24 08/18/19 04:00 Tylenol PO 650 mg Q4H PRN Administration Pain MILD(1-3)/Fever >100.5/VERDE Amlodipine Besylate 10 mg 08/13/19 10:00 08/18/19 10:20 Amlodipine PO 10 mg QDAY BUTCH Administration Lipase/Protease/Amylase 1 each 08/15/19 12:14 Pancreaze 10,500 Unit FEEDTUBE PRN PRN For Clogged Feeding Tube Dextrose 50 ml 08/13/19 01:03 D50w (25gm) Syringe IV Q30MIN PRN Hypoglycemia Protocol Enoxaparin Sodium 30 mg 08/17/19 22:00 08/18/19 22:30 Enoxaparin SUB-Q 30 mg QDAY@2200 BUTCH Administration Hydralazine HCl 100 mg 08/13/19 09:14 08/18/19 22:30 Apresoline PO 100 mg TID BUTCH Administration Hydralazine HCl 10 mg 08/13/19 09:15 08/15/19 04:30 Apresoline IV 10 mg Q4HR PRN Administration Blood Pressure Sodium Chloride 100 mls @ 999 mls/hr 08/13/19 13:21 Nacl 0.9% IV ALANA PRN Hypotension Insulin Human Lispro 0 unit 08/16/19 06:00 08/19/19 00:55 Humalog SUB-Q 2 unit Q6HR BUTCH Administration Protocol Lacosamide 50 mg 08/16/19 22:00 08/18/19 22:30 Vimpat FEEDTUBE 50 mg Q12HR BUTCH Administration Levetiracetam 500 mg 08/16/19 22:00 08/18/19 22:30 Keppra PO 500 mg BID BUTCH Administration Lorazepam 1 mg 08/12/19 23:26 Ativan IV Q4H PRN Seizures Ondansetron HCl 4 mg 08/12/19 23:24 Zofran IV Q8H PRN Nausea And Vomiting Simple Syrup 15 ml 08/15/19 12:14 Simple Syrup FEEDTUBE PRN PRN Hypoglycemia Simple Syrup 30 ml 08/15/19 12:14 Simple Syrup FEEDTUBE PRN PRN Hypoglycemia Sodium Bicarbonate 325 mg 08/15/19 12:14 Sodium Bicarbonate FEEDTUBE PRN PRN For Clogged Feeding Tube Sodium Chloride 10 ml 08/13/19 10:00 08/18/19 22:37 Sodium Chloride Flush Syringe 10 Ml IV 10 ml BID BUTCH Administration Sodium Chloride 10 ml 08/12/19 23:24 Sodium Chloride Flush Syringe 10 Ml IV PRN PRN LINE FLUSH
[2019-08-19] MEDS ORDERED: SODIUM CHLORIDE 0.9% 100 ML IV PRN (09:00)
[2019-08-19] MEDS ORDERED: EPOETIN ALFA 10,000 UNIT/1 ML INJ IV PRN (09:00)
[2019-08-19] MEDS: levETIRAcetam 500 MG TAB PO SCH ×2 (11:31→21:35)
[2019-08-19] MEDS: LACOSAMIDE 50 MG TAB FEEDTUBE SCH ×2 (11:31→21:35)
[2019-08-19] MEDS: hydrALAZINE 100 MG TAB PO SCH (11:32)
[2019-08-19] MEDS: amLODIPine 10 MG TAB PO SCH (11:32)
[2019-08-19] MEDS ORDERED: ACETAMINOPHEN 325 MG TAB PO PRN (12:44)
--- NOTE | 2019-08-19 13:11 | Progress Note ---
Assessment and Plan Assessment and plan: 79-year-old woman who presents to the hospital for reported seizures and altered mental status. Her family called 911 after they witnessed her having seizures. Unfortunately we do not have documentation of what the seizures actually looks like but apparently patient was unconscious and had some form of abnormal movements. Past medical history: Hypertension, end-stage renal disease on hemodialysis, seizures, heart disease, hepatitis C, question dementia Acute metabolic encephalopathy Patient is improved, she is now awake, tolerating diet, speech therapy eval appreciated, patient is tolerating regular diet with thin liquids, PT eval appreaciated, needs JENNIE placement, consult placed to Fever Obtain blood cultures and chest x-ray cxr was done yesterday and still no report. Spoke to the nurse Mariano, asked her to call radiology and get a report. 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 Low-grade fever was reported overnight Review of systems Constitutional:, She has been having fevers on and off during this admission, no malaise, no joint pains CVS: No chest pain, no orthopnea, no pedal edema GI: No abdominal pain, no diarrhea, no vomiting, no constipation Respiratory: , no wheezing, no coughing Hospitalist Physical - Physical exam Narrative exam: General.: Appears well, no distress, nontoxic HEENT: Moist mucous membranes, extraocular muscles intact, no lymphadenopathy Neck: supple Cardiac: S1-S2 heard Lungs: clear to auscultation bilaterally Abdomen: soft , nontender, nondistended, bowel sounds positive Extremities: no edema clubbing or cyanosis Skin: no rash or lesions Neurologic: She is awake and alert, obeys commands, moves extremities, generalized weakness Psych, calm and cooperative - Constitutional Vitals: Temp Pulse Resp BP Pulse Ox 98.8 F 87 20 142/52 100 08/19/19 07:16 08/19/19 07:16 08/19/19 07:16 08/19/19 07:16 08/19/19 08:52 General appearance: Present: no acute distress Results - Labs CBC & Chem 7: 08/18/19 06:22 08/19/19 04:20 Labs: Laboratory Last Values WBC 6.5 K/mm3 (4.5-11.0) 08/18/19 06:22 RBC 3.00 M/mm3 (3.65-5.03) L 08/18/19 06:22 Hgb 8.7 gm/dl (10.1-14.3) L 08/18/19 06:22 Hct 26.8 % (30.3-42.9) L 08/18/19 06:22 MCV 89 fl (79-97) 08/18/19 06:22 MCH 29 pg (28-32) 08/18/19 06:22 MCHC 33 % (30-34) 08/18/19 06:22 RDW 16.2 % (13.2-15.2) H 08/18/19 06:22 Plt Count 100 K/mm3 (140-440) L 08/18/19 06:22 Lymph % (Auto) [employer] Sales Associate 08/18/19 06:22 Hayes % (Auto) [employer] Sales Associate 08/18/19 06:22 Eos % (Auto) [employer] Sales Associate 08/18/19 06:22 Baso % (Auto) [employer] Sales Associate 08/18/19 06:22 Lymph # [employer] Sales Associate 08/18/19 06:22 Hayes # [employer] Sales Associate 08/18/19 06:22 Eos # [employer] Sales Associate 08/18/19 06:22 Baso # [employer] Sales Associate 08/18/19 06:22 Seg Neutrophils % [employer] Sales Associate 08/18/19 06:22 Seg Neutrophils # [employer] Sales Associate 08/18/19 06:22 PT 12.3 Sec. (12.2-14.9) 08/12/19 17:14 INR 0.92 (0.87-1.13) 08/12/19 17:14 APTT 30.3 Sec. (24.2-36.6) 08/12/19 17:14 POC ABG pH 7.376 (7.35-7.45) 08/13/19 22:54 POC ABG pCO2 48.8 (35-45) H 08/13/19 22:54 POC ABG pO2 62 (80-105) L 08/13/19 22:54 POC ABG HCO3 28.6 (22-26 mml/L) 08/13/19 22:54 POC ABG Total CO2 30 (23-27mmol/L) 08/13/19 22:54 POC ABG O2 Sat 91 08/13/19 22:54 POC ABG Base Excess 3 ((-2) - (+3)mmol/L) 08/13/19 22:54 FiO2 100 % 08/13/19 22:54 Sodium 132 mmol/L (137-145) L 08/19/19 04:20 Potassium 4.2 mmol/L (3.6-5.0) 08/19/19 04:20 Chloride 92.3 mmol/L (98-107) L 08/19/19 04:20 Carbon Dioxide 28 mmol/L (22-30) 08/19/19 04:20 Anion Gap 16 mmol/L 08/19/19 04:20 BUN 56 mg/dL (7-17) H 08/19/19 04:20 Creatinine 4.0 mg/dL (0.7-1.2) H D 08/19/19 04:20 Estimated GFR 13 ml/min 08/19/19 04:20 BUN/Creatinine Ratio 14 % 08/19/19 04:20 Glucose 102 mg/dL (65-100) H 08/19/19 04:20 POC Glucose 395 (70-105) H 08/19/19 11:32 Lactic Acid 1.20 mmol/L (0.7-2.0) 08/12/19 17:14 Calcium 9.7 mg/dL (8.4-10.2) 08/19/19 04:20 Phosphorus 3.00 mg/dL (2.5-4.5) 08/18/19 05:48 Magnesium 1.70 mg/dL (1.7-2.3) 08/18/19 05:48 Total Bilirubin 0.90 mg/dL (0.1-1.2) 08/18/19 05:48 Direct Bilirubin 0.4 mg/dL (0-0.2) H 08/18/19 05:48 Indirect Bilirubin 0.5 mg/dL 08/18/19 05:48 AST 33 units/L (5-40) 08/18/19 05:48 ALT 25 units/L (7-56) 08/18/19 05:48 Alkaline Phosphatase 75 units/L (35-129) 08/18/19 05:48 Ammonia 24.0 umol/L (25-60) L 08/14/19 17:09 Total Creatine Kinase 25 units/L (30-135) L 08/13/19 05:03 CK-MB (CK-2) 3.5 ng/mL (0.0-4.0) 08/13/19 05:03 CK-MB (CK-2) Rel Index 14.0 (0-4) H 08/13/19 05:03 Troponin T 0.118 ng/mL (0.00-0.029) H* 08/13/19 05:03 Total Protein 6.0 g/dL (6.3-8.2) L 08/18/19 05:48 Albumin 2.2 g/dL (3.9-5) L 08/18/19 05:48 Albumin/Globulin Ratio 0.6 % 08/18/19 05:48 Triglycerides 73 mg/dL (2-149) 08/12/19 17:14 Cholesterol 108 mg/dL (50-199) 08/12/19 17:14 LDL Cholesterol Direct 51 mg/dL (50-130) 08/12/19 17:14 HDL Cholesterol 51 mg/dL (40-59) 08/12/19 17:14 Cholesterol/HDL Ratio 2.11 % 08/12/19 17:14 TSH 2.430 mlU/mL (0.270-4.200) 08/12/19 17:15 Urine Color Yellow (Yellow) 08/12/19 17:19 Urine Turbidity Slightly-cloudy (Clear) 08/12/19 17:19 Urine pH 6.0 (5.0-7.0) 08/12/19 17:19 Ur Specific [place] 1.012 (1.003-1.030) 08/12/19 17:19 Urine Protein 100 mg/dl mg/dL (Negative) 08/12/19 17:19 Urine Glucose (UA) Neg mg/dL (Negative) 08/12/19 17:19 Urine Ketones Neg mg/dL (Negative) 08/12/19 17:19 Urine Blood Neg (Negative) 08/12/19 17:19 Urine Nitrite Neg (Negative) 08/12/19 17:19 Urine Bilirubin Neg (Negative) 08/12/19 17:19 Urine Urobilinogen 2.0 mg/dL (<2.0) 08/12/19 17:19 Ur Leukocyte Esterase Neg (Negative) 08/12/19 17:19 Urine WBC (Auto) 2.0 /HPF (0.0-6.0) 08/12/19 17:19 Urine RBC (Auto) 1.0 /HPF (0.0-6.0) 08/12/19 17:19 U Epithel Cells (Auto) 12.0 /HPF (0-13.0) 08/12/19 17:19 Urine Bacteria (Auto) 1+ /HPF (Negative) 08/12/19 17:19 Salicylates < 0.3 mg/dL (2.8-20.0) L 08/12/19 17:15 Urine Opiates Screen Presumptive negative 08/12/19 17:19 Urine Methadone Screen Presumptive negative 08/12/19 17:19 Acetaminophen < 5.0 ug/mL (10.0-30.0) L 08/12/19 17:14 Ur Barbiturates Screen Presumptive negative 08/12/19 17:19 Ur Phencyclidine Scrn Presumptive negative 08/12/19 17:19 Ur Amphetamines Screen Presumptive negative 08/12/19 17:19 U Benzodiazepines Scrn Presumptive negative 08/12/19 17:19 Urine Cocaine Screen Presumptive negative 08/12/19 17:19 U Marijuana (THC) Screen Presumptive negative 08/12/19 17:19 Drugs of Abuse Note Disclamer 08/12/19 17:19 Plasma/Serum Alcohol < 0.01 % (0-0.07) 08/12/19 17:15 Hepatitis A IgM Ab Non-reactive (NonReactive) 08/13/19 15:05 Hep Bs Antigen Non-reactive (Negative) 08/13/19 15:05 Hep B Core IgM Ab Non-reactive (NonReactive) 08/13/19 15:05 Hepatitis C Antibody Reactive (NonReactive) A 08/13/19 15:05 Blood Type A POSITIVE 08/12/19 17:00 Antibody Screen Negative 08/12/19 17:00 Active Medications - Current Medications Current Medications: Generic Name Dose Route Start Last Admin Trade Name Freq PRN Reason Stop Dose Admin Acetaminophen 650 mg 08/12/19 23:24 08/18/19 04:00 Tylenol PO 650 mg Q4H PRN Administration Pain MILD(1-3)/Fever >100.5/VERDE Acetaminophen 650 mg 08/19/19 12:44 Tylenol PO Q4H PRN Pain MILD(1-3)/Fever >100.5/VERDE Amlodipine Besylate 10 mg 08/20/19 10:00 Amlodipine PO DAILY REPLACED BY [facility] Lipase/Protease/Amylase 1 each 08/15/19 12:14 Pancreaznazario Goldberg 10,500 Unit FEEDTUBE PRN PRN For Clogged Feeding Tube Aspirin 81 mg 08/20/19 10:00 Halfprin Ec PO QDAY REPLACED BY [facility] Carvedilol 12.5 mg 08/19/19 22:00 Coreg PO BID REPLACED BY [facility] Dextrose 50 ml 08/13/19 01:03 D50w (25gm) Syringe IV Q30MIN PRN Hypoglycemia Protocol Enoxaparin Sodium 30 mg 08/17/19 22:00 08/18/19 22:30 Enoxaparin SUB-Q 30 mg QDAY@2200 BUTCH Administration Epoetin Jagjit 4,000 unit 08/19/19 09:00 Procrit IV ALANA PRN hemodialysis Famotidine 10 mg 08/19/19 22:00 Pepcid PO BID REPLACED BY [facility] Hydralazine HCl 10 mg 08/13/19 09:15 08/15/19 04:30 Apresoline IV 10 mg Q4HR PRN Administration Blood Pressure Sodium Chloride 100 mls @ 999 mls/hr 08/19/19 09:00 Nacl 0.9% IV ALANA PRN Hypotension Insulin Human Lispro 0 unit 08/16/19 06:00 08/19/19 12:08 Humalog SUB-Q 8 unit Q6HR BUTCH Administration Protocol Isosorbide Mononitrate 60 mg 08/20/19 10:00 Imdur PO DAILY REPLACED BY [facility] Lacosamide 50 mg 08/16/19 22:00 08/19/19 11:31 Vimpat FEEDTUBE 50 mg Q12HR BUTCH Administration Levetiracetam 500 mg 08/16/19 22:00 08/19/19 11:31 Keppra PO 500 mg BID BUTCH Administration Linagliptin 5 mg 08/19/19 13:00 Tradjenta PO QDDIAB BUTCH Lorazepam 1 mg 08/12/19 23:26 Ativan IV Q4H PRN Seizures Losartan Potassium 50 mg 08/20/19 10:00 Cozaar PO QDAY BUTCH Miscellaneous Medication 81 mg 08/20/19 10:00 Aspirin PO DAILY BUTCH Ondansetron HCl 4 mg 08/12/19 23:24 Zofran IV Q8H PRN Nausea And Vomiting Simple Syrup 15 ml 08/15/19 12:14 Simple Syrup FEEDTUBE PRN PRN Hypoglycemia Simple Syrup 30 ml 08/15/19 12:14 Simple Syrup FEEDTUBE PRN PRN Hypoglycemia Sodium Bicarbonate 325 mg 08/15/19 12:14 Sodium Bicarbonate FEEDTUBE PRN PRN For Clogged Feeding Tube Sodium Chloride 10 ml 08/13/19 10:00 08/19/19 11:32 Sodium Chloride Flush Syringe 10 Ml IV 10 ml BID BUTCH Administration Sodium Chloride 10 ml 08/12/19 23:24 Sodium Chloride Flush Syringe 10 Ml IV PRN PRN LINE FLUSH Nutrition/Malnutrition Assess - Dietary Evaluation Nutrition/Malnutrition Findings: Nutrition Notes Start: 08/13/19 12:15 Freq: Status: Active Protocol: Document 08/17/19 12:13 LM (Rec: 08/17/19 12:24 LM [email or web address]) Nutrition Notes Initial or Follow up Reassessment Current Diagnosis CKD (stage V CKD),Diabetes, Hypertension,Heart Failure Other Pertinent Diagnosis on HD, AMS Current Diet Mechanical soft Labs/Tests POC glu 112 Pertinent Medications Reviewed Height 5 ft 5 in Weight 51.256 kg [place] Body Weight (kg) 56.81 BMI 18.8 Subjective/Other Information Pt passed swallow eval and diet was advanced to mechanical soft with thin liquids. TF still hanging but turned off. Pt asleep at time of visit and lunch tray apeared untouched. Per RN note pt ate 35% of tray yesterday. Percent of energy/protein needs met: 0%/0% Burn Absent Trauma Absent GI Symptoms None Minimum of two criteria No Reduced [employer]omin[employer] Strength Measurably Reduced (severe) #1 Nutrition Diagnosis Inadequate oral intake As Evidenced by Signs and Symptoms pt passed swallow eval, diet advanced to mechanical soft Diagnosis Progress(for reassessment Improved documentation) Is patient on ventilator? No Is Patient Ambulatory and/or Out of Bed No REE-([facility]-confined to bed) 1187.184 Kcal/Kg value to use for calculation 30 Approximate Energy Requirements Using 1538 kcal/Kg Additional Notes Protein needs are > 61g (>1.2g /kg) Fluid needs are 1000-1500ml Nutrition Intervention Change Diet Order: Mechanical soft Goal #1 Meet at least 80% of kcal and protein needs via PO intakes Anticipated Discharge Needs: Mechanical soft Follow-Up By: 08/19/19 Additional Comments F/U for PO intakes/ ONS needs
[2019-08-19] MEDS ORDERED: SODIUM CHLORIDE*PRIMING MACHINE ONLY FOR DIALYSIS MC ONE (18:19)
[2019-08-19] MEDS: LINAGLIPTIN 5 MG TAB PO SCH (18:26)
[2019-08-19] MEDS: ENOXAPARIN 30 MG/0.3 ML INJ SUB-Q SCH (21:34)
[2019-08-19] MEDS: FAMOTIDINE 10 MG TAB PO SCH (21:35)
[2019-08-19] MEDS: carvediloL 12.5 MG TAB PO SCH (21:35)
[2019-08-20] MEDS: INSULIN LISPRO 100 UNIT/ML SUB-Q SCH ×5 (00:20→23:56)
[2019-08-20 05:50] LABS: Calcium 9.1 mg/dL (8.4-10.2)
[2019-08-20] MEDS ORDERED: NON-FORMULARY EACH (Aspirin 81 MG) PO SCH (10:00)
[2019-08-20] MEDS: LOSARTAN 50 MG TAB PO SCH (10:13)
[2019-08-20] MEDS: ASPIRIN EC 81 MG TAB PO SCH (10:13)
[2019-08-20] MEDS: amLODIPine 10 MG TAB PO SCH (10:13)
[2019-08-20] MEDS: FAMOTIDINE 10 MG TAB PO SCH ×2 (10:13→21:12)
[2019-08-20] MEDS: LACOSAMIDE 50 MG TAB FEEDTUBE SCH ×2 (10:13→21:11)
[2019-08-20] MEDS: LINAGLIPTIN 5 MG TAB PO SCH (10:13)
[2019-08-20] MEDS: levETIRAcetam 500 MG TAB PO SCH ×2 (10:29→21:11)
[2019-08-20] MEDS: carvediloL 12.5 MG TAB PO SCH ×2 (10:30→21:52)
--- NOTE | 2019-08-20 12:22 | Progress Note ---
Assessment and Plan Assessment and plan: 79-year-old woman who presents to the hospital for reported seizures and altered mental status. Her family called 911 after they witnessed her having seizures. Unfortunately we do not have documentation of what the seizures actually looks like but apparently patient was unconscious and had some form of abnormal movements. 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 Review of systems Constitutional:, She has been having fevers on and off during this admission, no malaise, no joint pains CVS: No chest pain, no orthopnea, no pedal edema GI: No abdominal pain, no diarrhea, no vomiting, no constipation Respiratory: , no wheezing, no coughing Hospitalist Physical - Physical exam Narrative exam: General.: Appears well, no distress, nontoxic HEENT: Moist mucous membranes, extraocular muscles intact, no lymphadenopathy Neck: supple Cardiac: S1-S2 heard Lungs: clear to auscultation bilaterally Abdomen: soft , nontender, nondistended, bowel sounds positive Extremities: no edema clubbing or cyanosis Skin: no rash or lesions Neurologic: She is awake and alert, obeys commands, moves extremities, generalized weakness Psych, calm and cooperative - Constitutional Vitals: Temp Pulse Resp BP Pulse Ox 98.5 F 87 20 172/61 100 08/20/19 07:46 08/20/19 07:46 08/20/19 07:46 08/20/19 07:46 08/20/19 09:17 General appearance: Present: no acute distress Results - Labs CBC & Chem 7: 08/18/19 06:22 08/21/19 04:20 Labs: Laboratory Last Values WBC 6.5 K/mm3 (4.5-11.0) 08/18/19 06:22 RBC 3.00 M/mm3 (3.65-5.03) L 08/18/19 06:22 Hgb 8.7 gm/dl (10.1-14.3) L 08/18/19 06:22 Hct 26.8 % (30.3-42.9) L 08/18/19 06:22 MCV 89 fl (79-97) 08/18/19 06:22 MCH 29 pg (28-32) 08/18/19 06:22 MCHC 33 % (30-34) 08/18/19 06:22 RDW 16.2 % (13.2-15.2) H 08/18/19 06:22 Plt Count 100 K/mm3 (140-440) L 08/18/19 06:22 Lymph % (Auto) Mathematical Sciences Professor 08/18/19 06:22 [place] % (Auto) Mathematical Sciences Professor 08/18/19 06:22 Eos % (Auto) Mathematical Sciences Professor 08/18/19 06:22 Baso % (Auto) Mathematical Sciences Professor 08/18/19 06:22 Lymph # Mathematical Sciences Professor 08/18/19 06:22 [place] # Mathematical Sciences Professor 08/18/19 06:22 Eos # Mathematical Sciences Professor 08/18/19 06:22 Baso # Mathematical Sciences Professor 08/18/19 06:22 Seg Neutrophils % Mathematical Sciences Professor 08/18/19 06:22 Seg Neutrophils # Mathematical Sciences Professor 08/18/19 06:22 PT 12.3 Sec. (12.2-14.9) 08/12/19 17:14 INR 0.92 (0.87-1.13) 08/12/19 17:14 APTT 30.3 Sec. (24.2-36.6) 08/12/19 17:14 POC ABG pH 7.376 (7.35-7.45) 08/13/19 22:54 POC ABG pCO2 48.8 (35-45) H 08/13/19 22:54 POC ABG pO2 62 (80-105) L 08/13/19 22:54 POC ABG HCO3 28.6 (22-26 mml/L) 08/13/19 22:54 POC ABG Total CO2 30 (23-27mmol/L) 08/13/19 22:54 POC ABG O2 Sat 91 08/13/19 22:54 POC ABG Base Excess 3 ((-2) - (+3)mmol/L) 08/13/19 22:54 FiO2 100 % 08/13/19 22:54 Sodium 136 mmol/L (137-145) L 08/20/19 04:53 Potassium 3.8 mmol/L (3.6-5.0) 08/20/19 04:53 Chloride 99.0 mmol/L (98-107) 08/20/19 04:53 Carbon Dioxide 28 mmol/L (22-30) 08/20/19 04:53 Anion Gap 13 mmol/L 08/20/19 04:53 BUN 24 mg/dL (7-17) H 08/20/19 04:53 Creatinine 2.3 mg/dL (0.7-1.2) H 08/20/19 04:53 Estimated GFR 25 ml/min 08/20/19 04:53 BUN/Creatinine Ratio 10 % 08/20/19 04:53 Glucose 89 mg/dL (65-100) 08/20/19 04:53 POC Glucose 137 (70-105) H 08/20/19 07:23 Lactic Acid 1.20 mmol/L (0.7-2.0) 08/12/19 17:14 Calcium 9.1 mg/dL (8.4-10.2) 08/20/19 04:53 Phosphorus 3.00 mg/dL (2.5-4.5) 08/18/19 05:48 Magnesium 1.70 mg/dL (1.7-2.3) 08/18/19 05:48 Total Bilirubin 0.90 mg/dL (0.1-1.2) 08/18/19 05:48 Direct Bilirubin 0.4 mg/dL (0-0.2) H 08/18/19 05:48 Indirect Bilirubin 0.5 mg/dL 08/18/19 05:48 AST 33 units/L (5-40) 08/18/19 05:48 ALT 25 units/L (7-56) 08/18/19 05:48 Alkaline Phosphatase 75 units/L (35-129) 08/18/19 05:48 Ammonia 24.0 umol/L (25-60) L 08/14/19 17:09 Total Creatine Kinase 25 units/L (30-135) L 08/13/19 05:03 CK-MB (CK-2) 3.5 ng/mL (0.0-4.0) 08/13/19 05:03 CK-MB (CK-2) Rel Index 14.0 (0-4) H 08/13/19 05:03 Troponin T 0.118 ng/mL (0.00-0.029) H* 08/13/19 05:03 Total Protein 6.0 g/dL (6.3-8.2) L 08/18/19 05:48 Albumin 2.2 g/dL (3.9-5) L 08/18/19 05:48 Albumin/Globulin Ratio 0.6 % 08/18/19 05:48 Triglycerides 73 mg/dL (2-149) 08/12/19 17:14 Cholesterol 108 mg/dL (50-199) 08/12/19 17:14 LDL Cholesterol Direct 51 mg/dL (50-130) 08/12/19 17:14 HDL Cholesterol 51 mg/dL (40-59) 08/12/19 17:14 Cholesterol/HDL Ratio 2.11 % 08/12/19 17:14 TSH 2.430 mlU/mL (0.270-4.200) 08/12/19 17:15 Urine Color Yellow (Yellow) 08/12/19 17:19 Urine Turbidity Slightly-cloudy (Clear) 08/12/19 17:19 Urine pH 6.0 (5.0-7.0) 08/12/19 17:19 Ur Specific Calcium 1.012 (1.003-1.030) 08/12/19 17:19 Urine Protein 100 mg/dl mg/dL (Negative) 08/12/19 17:19 Urine Glucose (UA) Neg mg/dL (Negative) 08/12/19 17:19 Urine Ketones Neg mg/dL (Negative) 08/12/19 17:19 Urine Blood Neg (Negative) 08/12/19 17:19 Urine Nitrite Neg (Negative) 08/12/19 17:19 Urine Bilirubin Neg (Negative) 08/12/19 17:19 Urine Urobilinogen 2.0 mg/dL (<2.0) 08/12/19 17:19 Ur Leukocyte Esterase Neg (Negative) 08/12/19 17:19 Urine WBC (Auto) 2.0 /HPF (0.0-6.0) 08/12/19 17:19 Urine RBC (Auto) 1.0 /HPF (0.0-6.0) 08/12/19 17:19 U Epithel Cells (Auto) 12.0 /HPF (0-13.0) 08/12/19 17:19 Urine Bacteria (Auto) 1+ /HPF (Negative) 08/12/19 17:19 Salicylates < 0.3 mg/dL (2.8-20.0) L 08/12/19 17:15 Urine Opiates Screen Presumptive negative 08/12/19 17:19 Urine Methadone Screen Presumptive negative 08/12/19 17:19 Acetaminophen < 5.0 ug/mL (10.0-30.0) L 08/12/19 17:14 Ur Barbiturates Screen Presumptive negative 08/12/19 17:19 Ur Phencyclidine Scrn Presumptive negative 08/12/19 17:19 Ur Amphetamines Screen Presumptive negative 08/12/19 17:19 U Benzodiazepines Scrn Presumptive negative 08/12/19 17:19 Urine Cocaine Screen Presumptive negative 08/12/19 17:19 U Marijuana (THC) Screen Presumptive negative 08/12/19 17:19 Drugs of Abuse Note Disclamer 08/12/19 17:19 Plasma/Serum Alcohol < 0.01 % (0-0.07) 08/12/19 17:15 Hepatitis A IgM Ab Non-reactive (NonReactive) 08/13/19 15:05 Hep Bs Antigen Non-reactive (Negative) 08/13/19 15:05 Hep B Core IgM Ab Non-reactive (NonReactive) 08/13/19 15:05 Hepatitis C Antibody Reactive (NonReactive) A 08/13/19 15:05 Blood Type A POSITIVE 08/12/19 17:00 Antibody Screen Negative 08/12/19 17:00 Active Medications - Current Medications Current Medications: Generic Name Dose Route Start Last Admin Trade Name Freq PRN Reason Stop Dose Admin Acetaminophen 650 mg 08/12/19 23:24 08/18/19 04:00 Tylenol PO 650 mg Q4H PRN Administration Pain MILD(1-3)/Fever >100.5/VERDE Acetaminophen 650 mg 08/19/19 12:44 Tylenol PO Q4H PRN Pain MILD(1-3)/Fever >100.5/VERDE Amlodipine Besylate 10 mg 08/20/19 10:00 08/20/19 10:13 Amlodipine PO 10 mg DAILY BUTCH Administration Lipase/Protease/Amylase 1 each 08/15/19 12:[address] 10,500 Unit FEEDTUBE PRN PRN For Clogged Feeding Tube Aspirin 81 mg 08/20/19 10:00 08/20/19 10:13 Halfprin Ec PO 81 mg QDAY BUTCH Administration Carvedilol 12.5 mg 08/19/19 22:00 08/20/19 10:30 Coreg PO 12.5 mg BID BUTCH Administration Dextrose 50 ml 08/13/19 01:03 D50w (25gm) Syringe IV Q30MIN PRN Hypoglycemia Protocol Enoxaparin Sodium 30 mg 08/17/19 22:00 08/19/19 21:34 Enoxaparin SUB-Q 30 mg QDAY@2200 BUTCH Administration Epoetin Jagjit 4,000 unit 08/19/19 09:00 Procrit IV ALANA PRN hemodialysis Famotidine 10 mg 08/19/19 22:00 08/20/19 10:13 Pepcid PO 10 mg BID BUTCH Administration Hydralazine HCl 10 mg 08/13/19 09:15 08/15/19 04:30 Apresoline IV 10 mg Q4HR PRN Administration Blood Pressure Sodium Chloride 100 mls @ 999 mls/hr 08/19/19 09:00 Nacl 0.9% IV ALANA PRN Hypotension Insulin Human Lispro 0 unit 08/16/19 06:00 08/20/19 08:53 Humalog SUB-Q Not Given Q6HR [facility] Protocol Isosorbide Mononitrate 60 mg 08/20/19 10:00 08/20/19 10:13 Imdur PO 60 mg DAILY BUTCH Administration Lacosamide 50 mg 08/16/19 22:00 08/20/19 10:13 Vimpat FEEDTUBE 50 mg Q12HR BUTCH Administration Levetiracetam 500 mg 08/16/19 22:00 08/20/19 10:29 Keppra PO 500 mg BID BUTCH Administration Linagliptin 5 mg 08/19/19 14:00 08/20/19 10:13 Tradjenta PO 5 mg QDDIAB BUTCH Administration Lorazepam 1 mg 08/12/19 23:26 Ativan IV Q4H PRN Seizures Losartan Potassium 50 mg 08/20/19 10:00 08/20/19 10:13 Cozaar PO 50 mg QDAY BUTCH Administration Ondansetron HCl 4 mg 08/12/19 23:24 Zofran IV Q8H PRN Nausea And Vomiting Simple Syrup 15 ml 08/15/19 12:14 Simple Syrup FEEDTUBE PRN PRN Hypoglycemia Simple Syrup 30 ml 08/15/19 12:14 Simple Syrup FEEDTUBE PRN PRN Hypoglycemia Sodium Bicarbonate 325 mg 08/15/19 12:14 Sodium Bicarbonate FEEDTUBE PRN PRN For Clogged Feeding Tube Sodium Chloride 10 ml 08/13/19 10:00 08/20/19 10:31 Sodium Chloride Flush Syringe 10 Ml IV 10 ml BID BUTCH Administration Sodium Chloride 10 ml 08/12/19 23:24 Sodium Chloride Flush Syringe 10 Ml IV PRN PRN LINE FLUSH Nutrition/Malnutrition Assess - Dietary Evaluation Nutrition/Malnutrition Findings: Nutrition Notes Start: 08/13/19 12:15 Freq: Status: Active Protocol: Document 08/19/19 13:02 LM (Rec: 08/19/19 13:14 LM [email or web address]) Nutrition Notes Initial or Follow up Reassessment Current Diagnosis CKD (stage V CKD),Diabetes, Hypertension,Heart Failure Other Pertinent Diagnosis on HD, AMS Current Diet Mechanical soft Labs/Tests Na 132 BUN 56 Cr 4 BG 102 Pertinent Medications Humalog Height 5 ft 5 in Weight 51.256 kg [place] Body Weight (kg) 56.81 BMI 18.8 Subjective/Other Information MD consult for malnutrition. Already following pt. NGT removed. Pt on mech soft diet only. Pt stated she has not had any wt loss and her UBW is 110 lb (50kg). Pt only ate potates and ONS for breakfast. Observed mild temporal and orbital wasting. 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 No Is Patient Ambulatory and/or Out of Bed No REE-([facility]-confined to bed) 1187.184 Kcal/Kg value to use for calculation 30 Approximate Energy Requirements Using 1538 kcal/Kg Additional Notes Protein needs are > 61g (>1.2g /kg) Fluid needs are 1000-1500ml Nutrition Intervention Change Diet Order: Mechanical soft Goal #1 Meet at least 80% of kcal and protein needs via PO/ONS intakes Anticipated Discharge Needs: Mechanical soft + Nepro BID Follow-Up By: 08/22/19 Additional Comments F/U for PO intakes/ ONS needs
--- NOTE | 2019-08-20 15:12 | Progress Note ---
Assessment and Plan Impression * End-stage renal disease on maintenance hemodialysis * AMS, improving * Hypertension * Type II diabetes mellitus * History of seizure disorder * Hepatitis C * Thrombocytopenia Recommendations * Continue hemodialysis MWF, due on 08/22 * UF as tolerated * BP reasonable, continue current regimen * Hemoglobin below goal, will continue MERVAT with HD, would ensure no bleeding * Avoid nephrotoxins * seizure management per primary team/neurology, appreciate recs, has improved * Adjust diet and meds for ESRD state * No IV, BP or venipuncture and her access arm * Cardiology recommendations reviewed * Awaiting JENNIE placement Subjective Date of service: 08/20/19 Principal diagnosis: esrd, post ictal state Interval history: No acute events noted. Patient remains at better mentation, denies any concerns today. No dyspnea, chest pain, issues with HD noted previously. Objective - Exam Narrative Exam: General appearance: alert and oriented, in no acute distress, chronically frail appearing Head: atraumatic, normocephalic Eye: PERRL Neck:normal ROM Respiratory: clear breath sounds bilaterally Cardiovascular: normal rhythm, noted systolic murmur GI/Abdominal: soft. nondistended, no tenderness Extremities: upper extremity AV fistula with no redness Neurological: no focal deficits noted today Skin: warm, dry, intact - Vital Signs Vital signs: Vital Signs - 12hr 08/20/19 08/20/19 08/20/19 07:46 09:17 10:00 Temperature 98.5 F Pulse Rate 87 Pulse Rate [ 72 Apical] Respiratory 20 Rate Blood Pressure 172/61 O2 Sat by Pulse 100 100 100 Oximetry 08/20/19 13:19 Temperature 98.4 F Pulse Rate 77 Pulse Rate [ Apical] Respiratory 20 Rate Blood Pressure 144/46 O2 Sat by Pulse 99 Oximetry - Lab 08/18/19 06:22 08/20/19 04:53 Most recent lab results Calcium 9.1 mg/dL (8.4-10.2) 08/20/19 04:53 Phosphorus 3.00 mg/dL (2.5-4.5) 08/18/19 05:48 Magnesium 1.70 mg/dL (1.7-2.3) 08/18/19 05:48 Medications & Allergies - Medications Allergies/Adverse Reactions: Allergies No Known Allergies Allergy (Unverified 02/02/18 15:43) Home Medications: Home Medications Medication Instructions Recorded Confirmed Last Taken Type Aspirin 81 mg PO DAILY 08/13/18 08/17/19 08/11/18 History Baclofen 10 mg PO TID 08/13/18 08/17/19 08/11/18 History Tizanidine HCl [Zanaflex 4mg CAP] 4 mg PO TID 08/13/18 08/17/19 08/11/18 History amLODIPine 10 mg PO DAILY 08/13/18 08/17/19 08/11/18 History Lacosamide [Vimpat] 50 mg PO Q12HR #60 tablet 08/18/18 08/17/19 Unknown Rx Acetaminophen [Acetaminophen TAB] 650 mg PO Q4H PRN tablet 09/02/18 08/17/19 Unknown Rx Aspirin [Aspirin BABY CHEW TAB] 81 mg PO DAILY tab.chew 09/02/18 08/17/19 Unknown Rx Famotidine [Pepcid] 10 mg PO BID tablet 09/02/18 08/17/19 Unknown Rx Lispro Insulin [HumaLOG] 0 unit SUB-Q ACHS units 09/02/18 08/17/19 Unknown Rx Gabapentin 100 mg PO Q12H #60 capsule 10/15/18 08/17/19 Unknown Rx ISOSORBIDE MONOnitrate [Imdur ER] 60 mg PO DAILY tablet 10/15/18 08/17/19 Unknown Rx Insulin Regular, Human [HumuLIN R] 0 units SUB-Q QHS units 10/15/18 08/17/19 Unknown Rx Lisinopril [Zestril TAB] 40 mg PO DAILY tablet 10/15/18 08/17/19 Unknown Rx carvediloL [Coreg] 12.5 mg PO BID tablet 10/15/18 08/17/19 Unknown Rx cloNIDine [Catapres] 0.2 mg PO BID tablet 10/15/18 08/17/19 Unknown Rx Losartan [Cozaar] 50 mg PO QDAY #30 tablet 11/01/18 08/17/19 Unknown Rx levETIRAcetam [Keppra TAB] 750 mg PO BID #60 tablet 11/01/18 08/17/19 Unknown Rx oxyCODONE /ACETAMINOPHEN [Percocet 1 tab PO Q6H PRN #12 tablet 11/01/18 08/17/19 Unknown Rx 5/325 mg] Active Medications: Generic Name Dose Route Start Last Admin Trade Name Freq PRN Reason Stop Dose Admin Acetaminophen 650 mg 08/12/19 23:24 08/18/19 04:00 Tylenol PO 650 mg Q4H PRN Administration Pain MILD(1-3)/Fever >100.5/VERDE Acetaminophen 650 mg 08/19/19 12:44 Tylenol PO Q4H PRN Pain MILD(1-3)/Fever >100.5/VERDE Amlodipine Besylate 10 mg 08/20/19 10:00 08/20/19 10:13 Amlodipine PO 10 mg DAILY BUTCH Administration Lipase/Protease/Amylase 1 each 08/15/19 12:14 Pancreaze 10,500 Unit FEEDTUBE PRN PRN For Clogged Feeding Tube Aspirin 81 mg 08/20/19 10:00 08/20/19 10:13 Halfprin Ec PO 81 mg QDAY BUTCH Administration Carvedilol 12.5 mg 08/19/19 22:00 08/20/19 10:30 Coreg PO 12.5 mg BID BUTCH Administration Dextrose 50 ml 08/13/19 01:03 D50w (25gm) Syringe IV Q30MIN PRN Hypoglycemia Protocol Enoxaparin Sodium 30 mg 08/17/19 22:00 08/19/19 21:34 Enoxaparin SUB-Q 30 mg QDAY@2200 BUTCH Administration Epoetin Jagjit 4,000 unit 08/19/19 09:00 Procrit IV ALANA PRN hemodialysis Famotidine 10 mg 08/19/19 22:00 08/20/19 10:13 Pepcid PO 10 mg BID BUTCH Administration Hydralazine HCl 10 mg 08/13/19 09:15 08/15/19 04:30 Apresoline IV 10 mg Q4HR PRN Administration Blood Pressure Sodium Chloride 100 mls @ 999 mls/hr 08/19/19 09:00 Nacl 0.9% IV ALANA PRN Hypotension Insulin Human Lispro 0 unit 08/16/19 06:00 08/20/19 12:00 Humalog SUB-Q Not Given Q6HR [facility] Protocol Isosorbide Mononitrate 60 mg 08/20/19 10:00 08/20/19 10:13 Imdur PO 60 mg DAILY BUTCH Administration Lacosamide 50 mg 08/16/19 22:00 08/20/19 10:13 Vimpat FEEDTUBE 50 mg Q12HR BUTCH Administration Levetiracetam 500 mg 08/16/19 22:00 08/20/19 10:29 Keppra PO 500 mg BID BUTCH Administration Linagliptin 5 mg 08/19/19 14:00 08/20/19 10:13 Tradjenta PO 5 mg QDDIAB BUTCH Administration Lorazepam 1 mg 08/12/19 23:26 Ativan IV Q4H PRN Seizures Losartan Potassium 50 mg 08/20/19 10:00 08/20/19 10:13 Cozaar PO 50 mg QDAY BUTCH Administration Ondansetron HCl 4 mg 08/12/19 23:24 Zofran IV Q8H PRN Nausea And Vomiting Simple Syrup 15 ml 08/15/19 12:14 Simple Syrup FEEDTUBE PRN PRN Hypoglycemia Simple Syrup 30 ml 08/15/19 12:14 Simple Syrup FEEDTUBE PRN PRN Hypoglycemia Sodium Bicarbonate 325 mg 08/15/19 12:14 Sodium Bicarbonate FEEDTUBE PRN PRN For Clogged Feeding Tube Sodium Chloride 10 ml 08/13/19 10:00 08/20/19 10:31 Sodium Chloride Flush Syringe 10 Ml IV 10 ml BID BUTCH Administration Sodium Chloride 10 ml 08/12/19 23:24 Sodium Chloride Flush Syringe 10 Ml IV PRN PRN LINE FLUSH
[2019-08-20] MEDS: ENOXAPARIN 30 MG/0.3 ML INJ SUB-Q SCH (21:12)
[2019-08-21 04:59] LABS: Calcium 9.6 mg/dL (8.4-10.2)
[2019-08-21] MEDS: INSULIN LISPRO 100 UNIT/ML SUB-Q SCH ×4 (07:50→18:06)
--- NOTE | 2019-08-21 09:08 | Consultation ---
History of Present Illness - Reason for Consult Consult date: 08/21/19 - History of Present Illness 79 yo F pMHx HTN, DM2, CHF, ESRD, hepatitis C was admitted for a seizure, and was brought in by family. She initially had altered mental status on admission which has since improved throughout her stay. She had been progressing well until she developed a fever 2 days ago. She denied any new symptoms at the time such as SOB, chest pain, abdominal pain, or diarrhea. She remains asymptomatic and denies any chest pain, shortness of breath, or cough. Febrile on 08/15 to 101.8 but since afebrile (Tmax 100.3). White count peaked to 20 for one day but since returned to normal. Not currently receiving antibiotics. Cultures are negative thus far. Imaging personally reviewed: Cervical spine MRI - degenerative disc disease Review of systems: Bold if positive; otherwise negative GENERAL: fever, chills, weight loss, fatigue, night sweats EYES: blurry vision, eye pain HENT: headache, hearing loss, sore throat, dysphagia, sinus pain CARDIO: chest pain, palpitations, orthopnea PULM: shortness of breath, wheezing, cough, sputum, hemoptysis GI: nausea, vomiting, diarrhea, abdominal pain, blood in stool : urinary frequency, urgency, dysuria, urethral discharge MSK: joint pain, back pain, swelling SKIN: rash, redness HEME: easy bruising, bleeding Past History Past Medical History: diabetes, dialysis, ESRD, heart failure (possible), hypertension, seizures, other (?dementia) Past Surgical History: No surgical history Social history: lives with family Family history: no significant family history Medications and Allergies Allergies Allergy/AdvReac Type Severity Reaction Status Date / Time No Known Allergies Allergy Unverified 02/02/18 15:43 Home Medications Medication Instructions Recorded Confirmed Last Taken Type Aspirin 81 mg PO DAILY 08/13/18 08/17/19 08/11/18 History Baclofen 10 mg PO TID 08/13/18 08/17/19 08/11/18 History Tizanidine HCl [Zanaflex 4mg CAP] 4 mg PO TID 08/13/18 08/17/19 08/11/18 History amLODIPine 10 mg PO DAILY 08/13/18 08/17/19 08/11/18 History Lacosamide [Vimpat] 50 mg PO Q12HR #60 tablet 08/18/18 08/17/19 Unknown Rx Acetaminophen [Acetaminophen TAB] 650 mg PO Q4H PRN tablet 09/02/18 08/17/19 Unknown Rx Aspirin [Aspirin BABY CHEW TAB] 81 mg PO DAILY tab.chew 09/02/18 08/17/19 Unknown Rx Famotidine [Pepcid] 10 mg PO BID tablet 09/02/18 08/17/19 Unknown Rx Lispro Insulin [HumaLOG] 0 unit SUB-Q ACHS units 09/02/18 08/17/19 Unknown Rx Gabapentin 100 mg PO Q12H #60 capsule 10/15/18 08/17/19 Unknown Rx ISOSORBIDE MONOnitrate [Imdur ER] 60 mg PO DAILY tablet 10/15/18 08/17/19 Unknown Rx Insulin Regular, Human [HumuLIN R] 0 units SUB-Q QHS units 10/15/18 08/17/19 Unknown Rx Lisinopril [Zestril TAB] 40 mg PO DAILY tablet 10/15/18 08/17/19 Unknown Rx carvediloL [Coreg] 12.5 mg PO BID tablet 10/15/18 08/17/19 Unknown Rx cloNIDine [Catapres] 0.2 mg PO BID tablet 10/15/18 08/17/19 Unknown Rx Losartan [Cozaar] 50 mg PO QDAY #30 tablet 11/01/18 08/17/19 Unknown Rx levETIRAcetam [Keppra TAB] 750 mg PO BID #60 tablet 11/01/18 08/17/19 Unknown Rx oxyCODONE /ACETAMINOPHEN [Percocet 1 tab PO Q6H PRN #12 tablet 11/01/18 08/17/19 Unknown Rx 5/325 mg] Active Meds: Active Medications Acetaminophen (Tylenol) 650 mg PO Q4H PRN PRN Reason: Pain MILD(1-3)/Fever >100.5/VERDE Last Admin: 08/18/19 04:00 Dose: 650 mg Documented by: Acetaminophen (Tylenol) 650 mg PO Q4H PRN PRN Reason: Pain MILD(1-3)/Fever >100.5/VERDE Amlodipine Besylate (Amlodipine) 10 mg PO DAILY BUTCH Last Admin: 08/20/19 10:13 Dose: 10 mg Documented by: Lipase/Protease/Amylase (Pancreaze Dr 10,500 Unit) 1 each FEEDTUBE PRN PRN PRN Reason: For Clogged Feeding Tube Aspirin (Halfprin Ec) 81 mg PO QDAY [facility] Last Admin: 08/20/19 10:13 Dose: 81 mg Documented by: Carvedilol (Coreg) 12.5 mg PO BID [facility] Last Admin: 08/20/19 21:52 Dose: 12.5 mg Documented by: Dextrose (D50w (25gm) Syringe) 50 ml IV Q30MIN PRN; Protocol PRN Reason: Hypoglycemia Enoxaparin Sodium (Enoxaparin) 30 mg SUB-Q QDAY@2200 [facility] Last Admin: 08/20/19 21:12 Dose: 30 mg Documented by: Epoetin Jagjit (Procrit) 4,000 unit IV ALANA PRN PRN Reason: hemodialysis Famotidine (Pepcid) 10 mg PO BID [facility] Last Admin: 08/20/19 21:12 Dose: 10 mg Documented by: Hydralazine HCl (Apresoline) 10 mg IV Q4HR PRN PRN Reason: Blood Pressure Last Admin: 08/15/19 04:30 Dose: 10 mg Documented by: Sodium Chloride (Nacl 0.9%) 100 mls @ 999 mls/hr IV ALANA PRN PRN Reason: Hypotension Insulin Human Lispro (Humalog) 0 unit SUB-Q Q6HR [facility]; Protocol Last Admin: 08/21/19 00:00 Dose: 2 unit Documented by: Isosorbide Mononitrate (Imdur) 60 mg PO DAILY [facility] Last Admin: 08/20/19 10:13 Dose: 60 mg Documented by: Lacosamide (Vimpat) 50 mg FEEDTUBE Q12HR [facility] Last Admin: 08/20/19 21:11 Dose: 50 mg Documented by: Levetiracetam (Keppra) 500 mg PO BID [facility] Last Admin: 08/20/19 21:11 Dose: 500 mg Documented by: Linagliptin (Tradjenta) 5 mg PO QDDIAB [facility] Last Admin: 08/20/19 10:13 Dose: 5 mg Documented by: Lorazepam (Ativan) 1 mg IV Q4H PRN PRN Reason: Seizures Losartan Potassium (Cozaar) 50 mg PO QDAY [facility] Last Admin: 08/20/19 10:13 Dose: 50 mg Documented by: Ondansetron HCl (Zofran) 4 mg IV Q8H PRN PRN Reason: Nausea And Vomiting Simple Syrup (Simple Syrup) 15 ml FEEDTUBE PRN PRN PRN Reason: Hypoglycemia Simple Syrup (Simple Syrup) 30 ml FEEDTUBE PRN PRN PRN Reason: Hypoglycemia Sodium Bicarbonate (Sodium Bicarbonate) 325 mg FEEDTUBE PRN PRN PRN Reason: For Clogged Feeding Tube Sodium Chloride (Sodium Chloride Flush Syringe 10 Ml) 10 ml IV BID BUTCH Last Admin: 08/20/19 21:53 Dose: 10 ml Documented by: Sodium Chloride (Sodium Chloride Flush Syringe 10 Ml) 10 ml IV PRN PRN PRN Reason: LINE FLUSH Physical Examination - Physical Exam Narrative exam: General Normal appearance, well developed, no acute distress Eyes - PERRLA, EOM intact ENT - Moist mucous membranes, no lymphadenopathy Neck - No noticeable or palpable swelling, redness or rash around throat or on face Lymph Nodes - No lymphadenopathy Cardiovascular - RRR no m/r/g, no JVD, no carotid bruits Lungs - Clear to auscultation, no use of accessory muscles, no crackles or wheezes. Skin - No rashes, skin warm and dry, no erythematous areas Abdomen - Normal bowel sounds, abdomen soft and nontender Extremities - No edema, cyanosis or clubbing Musculoskeletal - 5/5 strength, normal range of motion, no swollen or erythematous joints. Neurological Alert and oriented x 3, CN 2-12 grossly intact. - Constitutional Vitals: Vital Signs Temp Pulse Resp BP Pulse Ox 99.6 F 80 18 170/55 100 08/21/19 07:32 08/21/19 07:32 08/21/19 07:32 08/21/19 07:32 08/21/19 07:32 Temperature -Last 24 Hours Temperature 99.6 F Temperature 98 F Temperature 98.4 F Temperature 98.4 F Results - Labs CBC & Chem 7: 08/18/19 06:22 08/21/19 04:20 Labs: Abnormal lab results 08/20/19 08/20/19 08/21/19 Range/Units 16:22 22:32 04:20 Sodium 135 L (137-145) mmol/L Chloride 94.9 L (98-107) mmol/L BUN 43 H (7-17) mg/dL Creatinine 3.6 H D (0.7-1.2) mg/dL POC Glucose 195 H 166 H (70-105) 08/21/19 Range/Units 07:41 Sodium (137-145) mmol/L Chloride (98-107) mmol/L BUN (7-17) mg/dL Creatinine (0.7-1.2) mg/dL POC Glucose 123 H (70-105) Assessment and Plan Cultures Blood culture 08/18/2019 no growth to date Blood culture 08/14/2019 no growth to date Urine culture 08/12/2019 no growth Assessment: 79 yo F pMHx HTN, DM2, CHF, ESRD, hepatitis C admitted with seizures and found to have fevers 1. Fevers - They seem to have self-resolved and the cultures are negative. She is not currently on antibiotics. I would recommend to continue to monitor while off medications. 2. Dm2 - Recommend tight glycemic control 3. ESRD on HD - renally dose antibiotics as necessary 4. Hepatitis C Recs: - Continue to monitor off antibiotics - follow up blood cultures Thank you for the consult, we will continue to follow. Dr. Prince is taking over tomorrow. [facility] M: [phone] O: [phone] F: [phone]
[2019-08-21] MEDS: carvediloL 12.5 MG TAB PO SCH ×2 (09:29→21:19)
[2019-08-21] MEDS: ASPIRIN EC 81 MG TAB PO SCH (09:29)
[2019-08-21] MEDS: LOSARTAN 50 MG TAB PO SCH (09:29)
[2019-08-21] MEDS: FAMOTIDINE 10 MG TAB PO SCH ×2 (09:29→21:16)
[2019-08-21] MEDS: amLODIPine 10 MG TAB PO SCH (09:30)
[2019-08-21] MEDS: LACOSAMIDE 50 MG TAB FEEDTUBE SCH ×2 (09:30→21:16)
[2019-08-21] MEDS: levETIRAcetam 500 MG TAB PO SCH ×2 (09:30→21:16)
[2019-08-21] MEDS: LINAGLIPTIN 5 MG TAB PO SCH (09:30)
--- NOTE | 2019-08-21 12:53 | Progress Note ---
Assessment and Plan Assessment and plan: 79-year-old woman who presents to the hospital for reported seizures and altered mental status. Her family called 911 after they witnessed her having seizures. Unfortunately we do not have documentation of what the seizures actually looks like but apparently patient was unconscious and had some form of abnormal movements. 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 Review of systems Constitutional:, She has been having fevers on and off during this admission, no malaise, no joint pains CVS: No chest pain, no orthopnea, no pedal edema GI: No abdominal pain, no diarrhea, no vomiting, no constipation Respiratory: , no wheezing, no coughing Hospitalist Physical - Physical exam Narrative exam: General.: Appears well, no distress, nontoxic HEENT: Moist mucous membranes, extraocular muscles intact, no lymphadenopathy Neck: supple Cardiac: S1-S2 heard Lungs: clear to auscultation bilaterally Abdomen: soft , nontender, nondistended, bowel sounds positive Extremities: no edema clubbing or cyanosis Skin: no rash or lesions Neurologic: She is awake and alert, obeys commands, moves extremities, generalized weakness Psych, calm and cooperative - Constitutional Vitals: Temp Pulse Resp BP Pulse Ox 99.6 F 80 18 170/55 98 08/21/19 07:32 08/21/19 09:30 08/21/19 07:32 08/21/19 09:30 08/21/19 10:00 General appearance: Present: no acute distress Results - Labs CBC & Chem 7: 08/18/19 06:22 08/21/19 04:20 Labs: Laboratory Last Values WBC 6.5 K/mm3 (4.5-11.0) 08/18/19 06:22 RBC 3.00 M/mm3 (3.65-5.03) L 08/18/19 06:22 Hgb 8.7 gm/dl (10.1-14.3) L 08/18/19 06:22 Hct 26.8 % (30.3-42.9) L 08/18/19 06:22 MCV 89 fl (79-97) 08/18/19 06:22 MCH 29 pg (28-32) 08/18/19 06:22 MCHC 33 % (30-34) 08/18/19 06:22 RDW 16.2 % (13.2-15.2) H 08/18/19 06:22 Plt Count 100 K/mm3 (140-440) L 08/18/19 06:22 Lymph % (Auto) Post Acute Care Nurse Practitioner 08/18/19 06:22 [place] % (Auto) Post Acute Care Nurse Practitioner 08/18/19 06:22 Eos % (Auto) Post Acute Care Nurse Practitioner 08/18/19 06:22 Baso % (Auto) Post Acute Care Nurse Practitioner 08/18/19 06:22 Lymph # Post Acute Care Nurse Practitioner 08/18/19 06:22 [place] # Post Acute Care Nurse Practitioner 08/18/19 06:22 Eos # Post Acute Care Nurse Practitioner 08/18/19 06:22 Baso # Post Acute Care Nurse Practitioner 08/18/19 06:22 Seg Neutrophils % Post Acute Care Nurse Practitioner 08/18/19 06:22 Seg Neutrophils # Post Acute Care Nurse Practitioner 08/18/19 06:22 PT 12.3 Sec. (12.2-14.9) 08/12/19 17:14 INR 0.92 (0.87-1.13) 08/12/19 17:14 APTT 30.3 Sec. (24.2-36.6) 08/12/19 17:14 POC ABG pH 7.376 (7.35-7.45) 08/13/19 22:54 POC ABG pCO2 48.8 (35-45) H 08/13/19 22:54 POC ABG pO2 62 (80-105) L 08/13/19 22:54 POC ABG HCO3 28.6 (22-26 mml/L) 08/13/19 22:54 POC ABG Total CO2 30 (23-27mmol/L) 08/13/19 22:54 POC ABG O2 Sat 91 08/13/19 22:54 POC ABG Base Excess 3 ((-2) - (+3)mmol/L) 08/13/19 22:54 FiO2 100 % 08/13/19 22:54 Sodium 135 mmol/L (137-145) L 08/21/19 04:20 Potassium 4.4 mmol/L (3.6-5.0) 08/21/19 04:20 Chloride 94.9 mmol/L (98-107) L 08/21/19 04:20 Carbon Dioxide 25 mmol/L (22-30) 08/21/19 04:20 Anion Gap 20 mmol/L 08/21/19 04:20 BUN 43 mg/dL (7-17) H 08/21/19 04:20 Creatinine 3.6 mg/dL (0.7-1.2) H D 08/21/19 04:20 Estimated GFR 15 ml/min 08/21/19 04:20 BUN/Creatinine Ratio 12 % 08/21/19 04:20 Glucose 96 mg/dL (65-100) 08/21/19 04:20 POC Glucose 119 (70-105) H 08/21/19 12:10 Lactic Acid 1.20 mmol/L (0.7-2.0) 08/12/19 17:14 Calcium 9.6 mg/dL (8.4-10.2) 08/21/19 04:20 Phosphorus 3.00 mg/dL (2.5-4.5) 08/18/19 05:48 Magnesium 1.70 mg/dL (1.7-2.3) 08/18/19 05:48 Total Bilirubin 0.90 mg/dL (0.1-1.2) 08/18/19 05:48 Direct Bilirubin 0.4 mg/dL (0-0.2) H 08/18/19 05:48 Indirect Bilirubin 0.5 mg/dL 08/18/19 05:48 AST 33 units/L (5-40) 08/18/19 05:48 ALT 25 units/L (7-56) 08/18/19 05:48 Alkaline Phosphatase 75 units/L (35-129) 08/18/19 05:48 Ammonia 24.0 umol/L (25-60) L 08/14/19 17:09 Total Creatine Kinase 25 units/L (30-135) L 08/13/19 05:03 CK-MB (CK-2) 3.5 ng/mL (0.0-4.0) 08/13/19 05:03 CK-MB (CK-2) Rel Index 14.0 (0-4) H 08/13/19 05:03 Troponin T 0.118 ng/mL (0.00-0.029) H* 08/13/19 05:03 Total Protein 6.0 g/dL (6.3-8.2) L 08/18/19 05:48 Albumin 2.2 g/dL (3.9-5) L 08/18/19 05:48 Albumin/Globulin Ratio 0.6 % 08/18/19 05:48 Triglycerides 73 mg/dL (2-149) 08/12/19 17:14 Cholesterol 108 mg/dL (50-199) 08/12/19 17:14 LDL Cholesterol Direct 51 mg/dL (50-130) 08/12/19 17:14 HDL Cholesterol 51 mg/dL (40-59) 08/12/19 17:14 Cholesterol/HDL Ratio 2.11 % 08/12/19 17:14 TSH 2.430 mlU/mL (0.270-4.200) 08/12/19 17:15 Urine Color Yellow (Yellow) 08/12/19 17:19 Urine Turbidity Slightly-cloudy (Clear) 08/12/19 17:19 Urine pH 6.0 (5.0-7.0) 08/12/19 17:19 Ur Specific [place] 1.012 (1.003-1.030) 08/12/19 17:19 Urine Protein 100 mg/dl mg/dL (Negative) 08/12/19 17:19 Urine Glucose (UA) Neg mg/dL (Negative) 08/12/19 17:19 Urine Ketones Neg mg/dL (Negative) 08/12/19 17:19 Urine Blood Neg (Negative) 08/12/19 17:19 Urine Nitrite Neg (Negative) 08/12/19 17:19 Urine Bilirubin Neg (Negative) 08/12/19 17:19 Urine Urobilinogen 2.0 mg/dL (<2.0) 08/12/19 17:19 Ur Leukocyte Esterase Neg (Negative) 08/12/19 17:19 Urine WBC (Auto) 2.0 /HPF (0.0-6.0) 08/12/19 17:19 Urine RBC (Auto) 1.0 /HPF (0.0-6.0) 08/12/19 17:19 U Epithel Cells (Auto) 12.0 /HPF (0-13.0) 08/12/19 17:19 Urine Bacteria (Auto) 1+ /HPF (Negative) 08/12/19 17:19 Salicylates < 0.3 mg/dL (2.8-20.0) L 08/12/19 17:15 Urine Opiates Screen Presumptive negative 08/12/19 17:19 Urine Methadone Screen Presumptive negative 08/12/19 17:19 Acetaminophen < 5.0 ug/mL (10.0-30.0) L 08/12/19 17:14 Ur Barbiturates Screen Presumptive negative 08/12/19 17:19 Ur Phencyclidine Scrn Presumptive negative 08/12/19 17:19 Ur Amphetamines Screen Presumptive negative 08/12/19 17:19 U Benzodiazepines Scrn Presumptive negative 08/12/19 17:19 Urine Cocaine Screen Presumptive negative 08/12/19 17:19 U Marijuana (THC) Screen Presumptive negative 08/12/19 17:19 Drugs of Abuse Note Disclamer 08/12/19 17:19 Plasma/Serum Alcohol < 0.01 % (0-0.07) 08/12/19 17:15 Hepatitis A IgM Ab Non-reactive (NonReactive) 08/13/19 15:05 Hep Bs Antigen Non-reactive (Negative) 08/13/19 15:05 Hep B Core IgM Ab Non-reactive (NonReactive) 08/13/19 15:05 Hepatitis C Antibody Reactive (NonReactive) A 08/13/19 15:05 Blood Type A POSITIVE 08/12/19 17:00 Antibody Screen Negative 08/12/19 17:00 Active Medications - Current Medications Current Medications: Generic Name Dose Route Start Last Admin Trade Name Freq PRN Reason Stop Dose Admin Acetaminophen 650 mg 08/12/19 23:24 08/18/19 04:00 Tylenol PO 650 mg Q4H PRN Administration Pain MILD(1-3)/Fever >100.5/VERDE Acetaminophen 650 mg 08/19/19 12:44 Tylenol PO Q4H PRN Pain MILD(1-3)/Fever >100.5/VERDE Amlodipine Besylate 10 mg 08/20/19 10:00 08/21/19 09:30 Amlodipine PO 10 mg DAILY [facility] Administration Lipase/Protease/Amylase 1 each 08/15/19 12:14 Pancresabrina Goldberg 10,500 Unit FEEDTUBE PRN PRN For Clogged Feeding Tube Aspirin 81 mg 08/20/19 10:00 08/21/19 09:29 Halfprin Ec PO 81 mg QDAY [facility] Administration Carvedilol 12.5 mg 08/19/19 22:00 08/21/19 09:29 Coreg PO 12.5 mg BID BUT[facility] Administration Dextrose 50 ml 08/13/19 01:03 D50w (25gm) Syringe IV Q30MIN PRN Hypoglycemia Protocol Enoxaparin Sodium 30 mg 08/17/19 22:00 08/20/19 21:12 Enoxaparin SUB-Q 30 mg QDAY@2200 [facility] Administration Epoetin Jagjit 4,000 unit 08/19/19 09:00 Procrit IV ALANA PRN hemodialysis Famotidine 10 mg 08/19/19 22:00 08/21/19 09:29 Pepcid PO 10 mg BID [facility] Administration Hydralazine HCl 10 mg 08/13/19 09:15 08/15/19 04:30 Apresoline IV 10 mg Q4HR PRN Administration Blood Pressure Sodium Chloride 100 mls @ 999 mls/hr 08/19/19 09:00 Nacl 0.9% IV ALANA PRN Hypotension Insulin Human Lispro 0 unit 08/16/19 06:00 08/21/19 00:00 Humalog SUB-Q 2 unit Q6HR [facility] Administration Protocol Isosorbide Mononitrate 60 mg 08/20/19 10:00 08/21/19 09:30 Imdur PO 60 mg DAILY [facility] Administration Lacosamide 50 mg 08/16/19 22:00 08/21/19 09:30 Vimpat FEEDTUBE 50 mg Q12HR [facility] Administration Levetiracetam 500 mg 08/16/19 22:00 08/21/19 09:30 Keppra PO 500 mg BID BUT[facility] Administration Linagliptin 5 mg 08/19/19 14:00 08/21/19 09:30 Tradjenta PO 5 mg QDDIAB BUT[facility] Administration Lorazepam 1 mg 08/12/19 23:26 Ativan IV Q4H PRN Seizures Losartan Potassium 50 mg 08/20/19 10:00 08/21/19 09:29 Cozaar PO 50 mg QDAY [facility] Administration Ondansetron HCl 4 mg 08/12/19 23:24 Zofran IV Q8H PRN Nausea And Vomiting Simple Syrup 15 ml 08/15/19 12:14 Simple Syrup FEEDTUBE PRN PRN Hypoglycemia Simple Syrup 30 ml 08/15/19 12:14 Simple Syrup FEEDTUBE PRN PRN Hypoglycemia Sodium Bicarbonate 325 mg 08/15/19 12:14 Sodium Bicarbonate FEEDTUBE PRN PRN For Clogged Feeding Tube Sodium Chloride 10 ml 08/13/19 10:00 08/21/19 09:31 Sodium Chloride Flush Syringe 10 Ml IV 10 ml BID [facility] Administration Sodium Chloride 10 ml 08/12/19 23:24 Sodium Chloride Flush Syringe 10 Ml IV PRN PRN LINE FLUSH Nutrition/Malnutrition Assess - Dietary Evaluation Nutrition/Malnutrition Findings: Nutrition Notes Start: 08/13/19 12:15 Freq: Status: Active Protocol: Document 08/19/19 13:02 LM (Rec: 08/19/19 13:14 LM [email or web address]) Nutrition Notes Initial or Follow up Reassessment Current Diagnosis CKD (stage V CKD),Diabetes, Hypertension,Heart Failure Other Pertinent Diagnosis on HD, AMS Current Diet Mechanical soft Labs/Tests Na 132 BUN 56 Cr 4 BG 102 Pertinent Medications Humalog Height 5 ft 5 in Weight 51.256 kg [place] Body Weight (kg) 56.81 BMI 18.8 Subjective/Other Information MD consult for malnutrition. Already following pt. NGT removed. Pt on mech soft diet only. Pt stated she has not had any wt loss and her UBW is 110 lb (50kg). Pt only ate potates and ONS for breakfast. Observed mild temporal and orbital wasting. Percent of energy/protein needs met: 62%/72% Burn Absent Trauma Absent GI Symptoms None Minimum of two criteria Yes Body Fat Depletion Mild depletion (non-severe) Muscle Mass Mild Depletion (non-severe) Reduced Rotary Surface Grinder Strength Measurably Reduced (severe) #2 Nutrition Diagnosis Malnutrition Etiology ESRD, chronic illness As Evidenced by Signs and Symptoms muscle and fat wasting, reduced geography head strength #1 Nutrition Diagnosis Inadequate oral intake As Evidenced by Signs and Symptoms meeting less than 75% of energy and protein needs Diagnosis Progress(for reassessment Continues documentation) Is patient on ventilator? No Is Patient Ambulatory and/or Out of Bed No REE-([facility]-confined to bed) 1187.184 Kcal/Kg value to use for calculation 30 Approximate Energy Requirements Using 1538 kcal/Kg Additional Notes Protein needs are > 61g (>1.2g /kg) Fluid needs are 1000-1500ml Nutrition Intervention Change Diet Order: Mechanical soft Goal #1 Meet at least 80% of kcal and protein needs via PO/ONS intakes Anticipated Discharge Needs: Mechanical soft + Nepro BID Follow-Up By: 08/22/19 Additional Comments F/U for PO intakes/ ONS needs
[2019-08-21] MEDS: ENOXAPARIN 30 MG/0.3 ML INJ SUB-Q SCH (21:16)
[2019-08-22] MEDS: INSULIN LISPRO 100 UNIT/ML SUB-Q SCH ×3 (00:07→12:00)
[2019-08-22] MEDS: LINAGLIPTIN 5 MG TAB PO SCH (08:48)
--- NOTE | 2019-08-22 08:48 | XRay Report ---
CHEST 1 VIEW INDICATION / CLINICAL INFORMATION: fever. COMPARISON: Chest radiograph 08/12/2019 and abdominal radiograph 08/15/2019 FINDINGS: SUPPORT DEVICES: Stable position of Dobbhoff tube, coursing beneath the diaphragm with the tip not vi sualized. HEART / MEDIASTINUM: Stable. LUNGS / PLEURA: Mild pulmonary vascular congestion. Interval development of a right basilar consolida tive pulmonary opacity. No pneumothorax. ADDITIONAL FINDINGS: Surgical clips in the left axilla. IMPRESSION: 1. Interval development of a right basilar consolidative airspace opacity worrisome for pneumonia. Signer Name: Kaylyn Cardoza MD Signed: 08/18/2019 3:06 PM Workstation Name: [id number]
--- NOTE | 2019-08-22 10:06 | Progress Note ---
Assessment and Plan Assessment and plan: 79-year-old woman who presents to the hospital for reported seizures and altered mental status. Her family called 911 after they witnessed her having seizures. Unfortunately we do not have documentation of what the seizures actually looks like but apparently patient was unconscious and had some form of abnormal movements. Past medical history: Hypertension, end-stage renal disease on hemodialysis, seizures, heart disease, hepatitis C, question dementia Acute metabolic encephalopathy Patient is improved, she is now awake, tolerating diet, speech therapy eval appreciated, patient is tolerating regular diet with thin liquids, PT eval appreaciated, needs JENNIE placement, consult placed to CM Sepsis/pneumonia Antibiotics per ID Excoriations of sacrum Patient was found scratching her sacrum using the bedpan, wound care consult, no PRN itching, advised good hygiene Status epilepticus cont aeds, MR brain no acute findings, neurology consult appreciated, 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, EEG negative cont keppra and vimpat and additional dose of keppra after HD ESRD, hyperkalemia medically rx, cont HD Hypertension cont bp meds Diabetes with persistent hyperglycemia cont SSI, add oral medication elevated troponin likely Type 2 [place], given seizures severe pulm htn, meds optimized per cardiology cardiology input appreciated, EF 65 AOCD stable Moderate malnutrition Dietary supplements, dietitian consult Disposition to [facility], CM consulted Preventative health counseling performed for 17 minutes Advance care planning performed for 30 minutes History Interval history: She is awake and alert, has been eating. Review of systems Constitutional:, She has been having fevers on and off during this admission, no malaise, no joint pains CVS: No chest pain, no orthopnea, no pedal edema GI: No abdominal pain, no diarrhea, no vomiting, no constipation Respiratory: , no wheezing, no coughing Hospitalist Physical - Physical exam Narrative exam: General.: Appears well, no distress, nontoxic HEENT: Moist mucous membranes, extraocular muscles intact, no lymphadenopathy Neck: supple Cardiac: S1-S2 heard Lungs: clear to auscultation bilaterally Abdomen: soft , nontender, nondistended, bowel sounds positive Extremities: no edema clubbing or cyanosis Skin: no rash or lesions Neurologic: She is awake and alert, obeys commands, moves extremities, gene ralized weakness Psych, calm and cooperative - Constitutional Vitals: Temp Pulse Resp BP Pulse Ox 98.4 F 70 18 125/53 97 08/22/19 08:58 08/22/19 09:30 08/22/19 08:58 08/22/19 09:30 08/22/19 08:27 General appearance: Present: no acute distress Results - Labs CBC & Chem 7: 08/18/19 06:22 08/21/19 04:20 Labs: Laboratory Last Values WBC 6.5 K/mm3 (4.5-11.0) 08/18/19 06:22 RBC 3.00 M/mm3 (3.65-5.03) L 08/18/19 06:22 Hgb 8.7 gm/dl (10.1-14.3) L 08/18/19 06:22 Hct 26.8 % (30.3-42.9) L 08/18/19 06:22 MCV 89 fl (79-97) 08/18/19 06:22 MCH 29 pg (28-32) 08/18/19 06:22 MCHC 33 % (30-34) 08/18/19 06:22 RDW 16.2 % (13.2-15.2) H 08/18/19 06:22 Plt Count 100 K/mm3 (140-440) L 08/18/19 06:22 Lymph % (Auto) Record Retrieval Specialist 08/18/19 06:22 [place] % (Auto) Record Retrieval Specialist 08/18/19 06:22 Eos % (Auto) Record Retrieval Specialist 08/18/19 06:22 Baso % (Auto) Record Retrieval Specialist 08/18/19 06:22 Lymph # Record Retrieval Specialist 08/18/19 06:22 [place] # Record Retrieval Specialist 08/18/19 06:22 Eos # Record Retrieval Specialist 08/18/19 06:22 Baso # Record Retrieval Specialist 08/18/19 06:22 Seg Neutrophils % Record Retrieval Specialist 08/18/19 06:22 Seg Neutrophils # Record Retrieval Specialist 08/18/19 06:22 PT 12.3 Sec. (12.2-14.9) 08/12/19 17:14 INR 0.92 (0.87-1.13) 08/12/19 17:14 APTT 30.3 Sec. (24.2-36.6) 08/12/19 17:14 POC ABG pH 7.376 (7.35-7.45) 08/13/19 22:54 POC ABG pCO2 48.8 (35-45) H 08/13/19 22:54 POC ABG pO2 62 (80-105) L 08/13/19 22:54 POC ABG HCO3 28.6 (22-26 mml/L) 08/13/19 22:54 POC ABG Total CO2 30 (23-27mmol/L) 08/13/19 22:54 POC ABG O2 Sat 91 08/13/19 22:54 POC ABG Base Excess 3 ((-2) - (+3)mmol/L) 08/13/19 22:54 FiO2 100 % 08/13/19 22:54 Sodium 135 mmol/L (137-145) L 08/21/19 04:20 Potassium 4.4 mmol/L (3.6-5.0) 08/21/19 04:20 Chloride 94.9 mmol/L (98-107) L 08/21/19 04:20 Carbon Dioxide 25 mmol/L (22-30) 08/21/19 04:20 Anion Gap 20 mmol/L 08/21/19 04:20 BUN 43 mg/dL (7-17) H 08/21/19 04:20 Creatinine 3.6 mg/dL (0.7-1.2) H D 08/21/19 04:20 Estimated GFR 15 ml/min 08/21/19 04:20 BUN/Creatinine Ratio 12 % 08/21/19 04:20 Glucose 96 mg/dL (65-100) 08/21/19 04:20 POC Glucose 104 (70-105) 08/22/19 07:46 Lactic Acid 1.20 mmol/L (0.7-2.0) 08/12/19 17:14 Calcium 9.6 mg/dL (8.4-10.2) 08/21/19 04:20 Phosphorus 3.00 mg/dL (2.5-4.5) 08/18/19 05:48 Magnesium 1.70 mg/dL (1.7-2.3) 08/18/19 05:48 Total Bilirubin 0.90 mg/dL (0.1-1.2) 08/18/19 05:48 Direct Bilirubin 0.4 mg/dL (0-0.2) H 08/18/19 05:48 Indirect Bilirubin 0.5 mg/dL 08/18/19 05:48 AST 33 units/L (5-40) 08/18/19 05:48 ALT 25 units/L (7-56) 08/18/19 05:48 Alkaline Phosphatase 75 units/L (35-129) 08/18/19 05:48 Ammonia 24.0 umol/L (25-60) L 08/14/19 17:09 Total Creatine Kinase 25 units/L (30-135) L 08/13/19 05:03 CK-MB (CK-2) 3.5 ng/mL (0.0-4.0) 08/13/19 05:03 CK-MB (CK-2) Rel Index 14.0 (0-4) H 08/13/19 05:03 Troponin T 0.118 ng/mL (0.00-0.029) H* 08/13/19 05:03 Total Protein 6.0 g/dL (6.3-8.2) L 08/18/19 05:48 Albumin 2.2 g/dL (3.9-5) L 08/18/19 05:48 Albumin/Globulin Ratio 0.6 % 08/18/19 05:48 Triglycerides 73 mg/dL (2-149) 08/12/19 17:14 Cholesterol 108 mg/dL (50-199) 08/12/19 17:14 LDL Cholesterol Direct 51 mg/dL (50-130) 08/12/19 17:14 HDL Cholesterol 51 mg/dL (40-59) 08/12/19 17:14 Cholesterol/HDL Ratio 2.11 % 08/12/19 17:14 TSH 2.430 mlU/mL (0.270-4.200) 08/12/19 17:15 Urine Color Yellow (Yellow) 08/12/19 17:19 Urine Turbidity Slightly-cloudy (Clear) 08/12/19 17:19 Urine pH 6.0 (5.0-7.0) 08/12/19 17:19 Ur Specific [place] 1.012 (1.003-1.030) 08/12/19 17:19 Urine Protein 100 mg/dl mg/dL (Negative) 08/12/19 17:19 Urine Glucose (UA) Neg mg/dL (Negative) 08/12/19 17:19 Urine Ketones Neg mg/dL (Negative) 08/12/19 17:19 Urine Blood Neg (Negative) 08/12/19 17:19 Urine Nitrite Neg (Negative) 08/12/19 17:19 Urine Bilirubin Neg (Negative) 08/12/19 17:19 Urine Urobilinogen 2.0 mg/dL (<2.0) 08/12/19 17:19 Ur Leukocyte Esterase Neg (Negative) 08/12/19 17:19 Urine WBC (Auto) 2.0 /HPF (0.0-6.0) 08/12/19 17:19 Urine RBC (Auto) 1.0 /HPF (0.0-6.0) 08/12/19 17:19 U Epithel Cells (Auto) 12.0 /HPF (0-13.0) 08/12/19 17:19 Urine Bacteria (Auto) 1+ /HPF (Negative) 08/12/19 17:19 Salicylates < 0.3 mg/dL (2.8-20.0) L 08/12/19 17:15 Urine Opiates Screen Presumptive negative 08/12/19 17:19 Urine Methadone Screen Presumptive negative 08/12/19 17:19 Acetaminophen < 5.0 ug/mL (10.0-30.0) L 08/12/19 17:14 Ur Barbiturates Screen Presumptive negative 08/12/19 17:19 Ur Phencyclidine Scrn Presumptive negative 08/12/19 17:19 Ur Amphetamines Screen Presumptive negative 08/12/19 17:19 U Benzodiazepines Scrn Presumptive negative 08/12/19 17:19 Urine Cocaine Screen Presumptive negative 08/12/19 17:19 U Marijuana (THC) Screen Presumptive negative 08/12/19 17:19 Drugs of Abuse Note Disclamer 08/12/19 17:19 Plasma/Serum Alcohol < 0.01 % (0-0.07) 08/12/19 17:15 Hepatitis A IgM Ab Non-reactive (NonReactive) 08/13/19 15:05 Hep Bs Antigen Non-reactive (Negative) 08/13/19 15:05 Hep B Core IgM Ab Non-reactive (NonReactive) 08/13/19 15:05 Hepatitis C Antibody Reactive (NonReactive) A 08/13/19 15:05 Blood Type A POSITIVE 08/12/19 17:00 Antibody Screen Negative 08/12/19 17:00 Active Medications - Current Medications Current Medications: Generic Name Dose Route Start Last Admin Trade Name Freq PRN Reason Stop Dose Admin Acetaminophen 650 mg 08/19/19 12:44 Tylenol PO Q4H PRN Pain MILD(1-3)/Fever >100.5/VERDE Amlodipine Besylate 10 mg 08/20/19 10:00 08/21/19 09:30 Amlodipine PO 10 mg DAILY BUTCH Administration Lipase/Protease/Amylase 1 each 08/15/19 12:14 Pancreaze 10,500 Unit FEEDTUBE PRN PRN For Clogged Feeding Tube Aspirin 81 mg 08/20/19 10:00 08/21/19 09:29 Halfprin Ec PO 81 mg QDAY BUTCH Administration Carvedilol 12.5 mg 08/19/19 22:00 08/21/19 21:19 Coreg PO 12.5 mg BID BUTCH Administration Dextrose 50 ml 08/13/19 01:03 D50w (25gm) Syringe IV Q30MIN PRN Hypoglycemia Protocol Enoxaparin Sodium 30 mg 08/17/19 22:00 08/21/19 21:16 Enoxaparin SUB-Q 30 mg QDAY@2200 BUTCH Administration Epoetin Jagjit 4,000 unit 08/19/19 09:00 Procrit IV ALANA PRN hemodialysis Famotidine 10 mg 08/19/19 22:00 08/21/19 21:16 Pepcid PO 10 mg BID BUTCH Administration Hydralazine HCl 10 mg 08/13/19 09:15 08/15/19 04:30 Apresoline IV 10 mg Q4HR PRN Administration Blood Pressure Sodium Chloride 100 mls @ 999 mls/hr 08/19/19 09:00 Nacl 0.9% IV ALANA PRN Hypotension Insulin Human Lispro 0 unit 08/16/19 06:00 08/22/19 08:16 Humalog SUB-Q Not Given Q6HR [facility] Protocol Isosorbide Mononitrate 60 mg 08/20/19 10:00 08/21/19 09:30 Imdur PO 60 mg DAILY BUTCH Administration Lacosamide 50 mg 08/16/19 22:00 08/21/19 21:16 Vimpat FEEDTUBE 50 mg Q12HR BUTCH Administration Levetiracetam 500 mg 08/16/19 22:00 08/21/19 21:16 Keppra PO 500 mg BID BUTCH Administration Linagliptin 5 mg 08/19/19 14:00 08/22/19 08:48 Tradjenta PO 5 mg QDDIAB BUTCH Administration Lorazepam 1 mg 08/12/19 23:26 Ativan IV Q4H PRN Seizures Losartan Potassium 50 mg 08/20/19 10:00 08/21/19 09:29 Cozaar PO 50 mg QDAY BUTCH Administration Ondansetron HCl 4 mg 08/12/19 23:24 Zofran IV Q8H PRN Nausea And Vomiting Simple Syrup 15 ml 08/15/19 12:14 Simple Syrup FEEDTUBE PRN PRN Hypoglycemia Simple Syrup 30 ml 08/15/19 12:14 Simple Syrup FEEDTUBE PRN PRN Hypoglycemia Sodium Bicarbonate 325 mg 08/15/19 12:14 Sodium Bicarbonate FEEDTUBE PRN PRN For Clogged Feeding Tube Sodium Chloride 10 ml 08/13/19 10:00 08/21/19 22:50 Sodium Chloride Flush Syringe 10 Ml IV Not Given BID BUTCH Sodium Chloride 10 ml 08/12/19 23:24 Sodium Chloride Flush Syringe 10 Ml IV PRN PRN LINE FLUSH Nutrition/Malnutrition Assess - Dietary Evaluation Nutrition/Malnutrition Findings: Nutrition Notes Start: 08/13/19 12:15 Freq: Status: Active Protocol: Document 08/19/19 13:02 LM (Rec: 08/19/19 13:14 LM [email or web address]) Nutrition Notes Initial or Follow up Reassessment Current Diagnosis CKD (stage V CKD),Diabetes, Hypertension,Heart Failure Other Pertinent Diagnosis on HD, AMS Current Diet Mechanical soft Labs/Tests Na 132 BUN 56 Cr 4 BG 102 Pertinent Medications Humalog Height 5 ft 5 in Weight 51.256 kg Peck Body Weight (kg) 56.81 BMI 18.8 Subjective/Other Information MD consult for malnutrition. Already following pt. NGT removed. Pt on mech soft diet only. Pt stated she has not had any wt loss and her UBW is 110 lb (50kg). Pt only ate potates and ONS for breakfast. Observed mild temporal and orbital wasting. Percent of energy/protein needs met: 62%/72% Burn Absent Trauma Absent GI Symptoms None Minimum of two criteria Yes Body Fat Depletion Mild depletion (non-severe) Muscle Mass Mild Depletion (non-severe) Reduced Customer Care Manager Strength Measurably Reduced (severe) #2 Nutrition Diagnosis Malnutrition Etiology ESRD, chronic illness As Evidenced by Signs and Symptoms muscle and fat wasting, reduced paralegals strength #1 Nutrition Diagnosis Inadequate oral intake As Evidenced by Signs and Symptoms meeting less than 75% of energy and protein needs Diagnosis Progress(for reassessment Continues documentation) Is patient on ventilator? No Is Patient Ambulatory and/or Out of Bed No REE-([facility]-confined to bed) 1187.184 Kcal/Kg value to use for calculation 30 Approximate Energy Requirements Using 1538 kcal/Kg Additional Notes Protein needs are > 61g (>1.2g /kg) Fluid needs are 1000-1500ml Nutrition Intervention Change Diet Order: Mechanical soft Goal #1 Meet at least 80% of kcal and protein needs via PO/ONS intakes Anticipated Discharge Needs: Mechanical soft + Nepro BID Follow-Up By: 08/22/19 Additional Comments F/U for PO intakes/ ONS needs
[2019-08-22] MEDS: LOSARTAN 50 MG TAB PO SCH (10:09)
[2019-08-22] MEDS: amLODIPine 10 MG TAB PO SCH (10:09)
[2019-08-22] MEDS: ASPIRIN EC 81 MG TAB PO SCH (10:09)
[2019-08-22] MEDS: carvediloL 12.5 MG TAB PO SCH (10:09)
[2019-08-22] MEDS: FAMOTIDINE 10 MG TAB PO SCH (10:10)
[2019-08-22] MEDS: LACOSAMIDE 50 MG TAB FEEDTUBE SCH (10:11)
[2019-08-22] MEDS: levETIRAcetam 500 MG TAB PO SCH (10:12)
[2019-08-22] MEDS ORDERED: diphenhydrAMINE 25 MG CAP PO PRN (11:33)
--- NOTE | 2019-08-22 12:01 | Progress Note ---
Assessment and Plan Impression * End-stage renal disease on maintenance hemodialysis * AMS * Hypertension * Type II diabetes mellitus * History of seizure disorder * Hepatitis C * Thrombocytopenia * Anemia secondary to ESRD * Secondary hyperparathyroidism Recommendations * Hemodialysis today - UF as tolerated * Continue MWF wchedule * Continue antiHTN medications * Epogen TIW prn - will increase dose * Neurology following * Cardiology recommendations reviewed * Avoid nephrotoxins * Adjust diet and meds for ESRD state * No IV, BP or venipuncture and her access arm * Awaiting JENNIE placement Subjective Date of service: 08/22/19 Principal diagnosis: esrd, post ictal state Interval history: Patient seen on dialysis. Objective - Vital Signs Vital signs: Vital Signs - 12hr 08/22/19 08/22/19 08/22/19 03:00 07:23 07:43 Temperature 98.3 F Pulse Rate 75 76 Respiratory 18 Rate Blood Pressure Blood Pressure 160/78 [Right] O2 Sat by Pulse 95 96 100 Oximetry 08/22/19 08/22/19 08/22/19 07:51 08:27 08:58 Temperature 98.5 F 98.4 F Pulse Rate 70 Respiratory 18 Rate Blood Pressure 153/50 Blood Pressure 179/52 [Right] O2 Sat by Pulse 97 Oximetry 08/22/19 08/22/19 08/22/19 09:08 09:15 09:30 Temperature Pulse Rate 71 68 70 Respiratory Rate Blood Pressure 168/62 144/57 125/53 Blood Pressure [Right] O2 Sat by Pulse Oximetry 08/22/19 08/22/19 08/22/19 09:45 10:00 10:15 Temperature Pulse Rate 77 67 71 Respiratory Rate Blood Pressure 113/55 113/46 106/47 Blood Pressure [Right] O2 Sat by Pulse Oximetry 08/22/19 08/22/19 08/22/19 10:30 10:45 10:55 Temperature Pulse Rate 73 72 75 Respiratory Rate Blood Pressure 113/40 95/40 109/45 Blood Pressure [Right] O2 Sat by Pulse Oximetry 08/22/19 08/22/19 08/22/19 11:00 11:15 11:30 Temperature Pulse Rate 75 80 80 Respiratory Rate Blood Pressure 105/45 108/47 95/40 Blood Pressure [Right] O2 Sat by Pulse Oximetry 08/22/19 11:45 Temperature Pulse Rate 73 Respiratory Rate Blood Pressure 122/51 Blood Pressure [Right] O2 Sat by Pulse Oximetry - General Appearance General appearance: well-developed, well-nourished EENT: ATNC Cardiology: regular, S1S2 Gastrointestinal: normal, no tenderness, no distended Integumentary: no rash, warm and dry Musculoskeletal: other (no edema) Psychiatric: cooperative - Lab 08/18/19 06:22 08/21/19 04:20 Most recent lab results Calcium 9.6 mg/dL (8.4-10.2) 08/21/19 04:20 Phosphorus 3.00 mg/dL (2.5-4.5) 08/18/19 05:48 Magnesium 1.70 mg/dL (1.7-2.3) 08/18/19 05:48 Medications & Allergies - Medications Allergies/Adverse Reactions: Allergies No Known Allergies Allergy (Unverified 02/02/18 15:43) Home Medications: Home Medications Medication Instructions Recorded Confirmed Last Taken Type Aspirin 81 mg PO DAILY 08/13/18 08/17/19 08/11/18 History Baclofen 10 mg PO TID 08/13/18 08/17/19 08/11/18 History Tizanidine HCl [Zanaflex 4mg CAP] 4 mg PO TID 08/13/18 08/17/19 08/11/18 History amLODIPine 10 mg PO DAILY 08/13/18 08/17/19 08/11/18 History Lacosamide [Vimpat] 50 mg PO Q12HR #60 tablet 08/18/18 08/17/19 Unknown Rx Acetaminophen [Acetaminophen TAB] 650 mg PO Q4H PRN tablet 09/02/18 08/17/19 Unknown Rx Aspirin [Aspirin BABY CHEW TAB] 81 mg PO DAILY tab.chew 09/02/18 08/17/19 Unknown Rx Famotidine [Pepcid] 10 mg PO BID tablet 09/02/18 08/17/19 Unknown Rx Lispro Insulin [HumaLOG] 0 unit SUB-Q ACHS units 09/02/18 08/17/19 Unknown Rx Gabapentin 100 mg PO Q12H #60 capsule 10/15/18 08/17/19 Unknown Rx ISOSORBIDE MONOnitrate [Imdur ER] 60 mg PO DAILY tablet 10/15/18 08/17/19 Unknown Rx Insulin Regular, Human [HumuLIN R] 0 units SUB-Q QHS units 10/15/18 08/17/19 Unknown Rx Lisinopril [Zestril TAB] 40 mg PO DAILY tablet 10/15/18 08/17/19 Unknown Rx carvediloL [Coreg] 12.5 mg PO BID tablet 10/15/18 08/17/19 Unknown Rx cloNIDine [Catapres] 0.2 mg PO BID tablet 10/15/18 08/17/19 Unknown Rx Losartan [Cozaar] 50 mg PO QDAY #30 tablet 11/01/18 08/17/19 Unknown Rx levETIRAcetam [Keppra TAB] 750 mg PO BID #60 tablet 11/01/18 08/17/19 Unknown Rx oxyCODONE /ACETAMINOPHEN [Percocet 1 tab PO Q6H PRN #12 tablet 11/01/18 08/17/19 Unknown Rx 5/325 mg] Active Medications: Generic Name Dose Route Start Last Admin Trade Name Freq PRN Reason Stop Dose Admin Acetaminophen 650 mg 08/19/19 12:44 Tylenol PO Q4H PRN Pain MILD(1-3)/Fever >100.5/VERDE Amlodipine Besylate 10 mg 08/20/19 10:00 08/21/19 09:30 Amlodipine PO 10 mg DAILY BUTCH Administration Lipase/Protease/Amylase 1 each 08/15/19 12:14 Pancresabrina Goldberg 10,500 Unit FEEDTUBE PRN PRN For Clogged Feeding Tube Aspirin 81 mg 08/20/19 10:00 08/21/19 09:29 Halfprin Ec PO 81 mg QDAY BUTCH Administration Carvedilol 12.5 mg 08/19/19 22:00 08/21/19 21:19 Coreg PO 12.5 mg BID BUTCH Administration Dextrose 50 ml 08/13/19 01:03 D50w (25gm) Syringe IV Q30MIN PRN Hypoglycemia Protocol Diphenhydramine HCl 25 mg 08/22/19 11:33 Benadryl PO Q6H PRN Itching Enoxaparin Sodium 30 mg 08/17/19 22:00 08/21/19 21:16 Enoxaparin SUB-Q 30 mg QDAY@2200 BUTCH Administration Epoetin Jagjit 4,000 unit 08/19/19 09:00 Procrit IV ALANA PRN hemodialysis Famotidine 10 mg 08/19/19 22:00 08/21/19 21:16 Pepcid PO 10 mg BID BUTCH Administration Hydralazine HCl 10 mg 08/13/19 09:15 08/15/19 04:30 Apresoline IV 10 mg Q4HR PRN Administration Blood Pressure Sodium Chloride 100 mls @ 999 mls/hr 08/19/19 09:00 Nacl 0.9% IV ALANA PRN Hypotension Insulin Human Lispro 0 unit 08/16/19 06:00 08/22/19 08:16 Humalog SUB-Q Not Given Q6HR [facility] Protocol Isosorbide Mononitrate 60 mg 08/20/19 10:00 08/21/19 09:30 Imdur PO 60 mg DAILY BUTCH Administration Lacosamide 50 mg 08/16/19 22:00 08/21/19 21:16 Vimpat FEEDTUBE 50 mg Q12HR BUTCH Administration Levetiracetam 500 mg 08/16/19 22:00 08/21/19 21:16 Keppra PO 500 mg BID BUTCH Administration Linagliptin 5 mg 08/19/19 14:00 08/22/19 08:48 Tradjenta PO 5 mg QDDIAB BUTCH Administration Lorazepam 1 mg 08/12/19 23:26 Ativan IV Q4H PRN Seizures Losartan Potassium 50 mg 08/20/19 10:00 08/21/19 09:29 Cozaar PO 50 mg QDAY BUTCH Administration Ondansetron HCl 4 mg 08/12/19 23:24 Zofran IV Q8H PRN Nausea And Vomiting Simple Syrup 15 ml 08/15/19 12:14 Simple Syrup FEEDTUBE PRN PRN Hypoglycemia Simple Syrup 30 ml 08/15/19 12:14 Simple Syrup FEEDTUBE PRN PRN Hypoglycemia Sodium Bicarbonate 325 mg 08/15/19 12:14 Sodium Bicarbonate FEEDTUBE PRN PRN For Clogged Feeding Tube Sodium Chloride 10 ml 08/13/19 10:00 08/21/19 22:50 Sodium Chloride Flush Syringe 10 Ml IV Not Given BID BUTCH Sodium Chloride 10 ml 08/12/19 23:24 Sodium Chloride Flush Syringe 10 Ml IV PRN PRN LINE FLUSH
[2019-08-22] MEDS ORDERED: EPOETIN ALFA 10,000 UNIT/1 ML INJ IV PRN (12:55)
--- NOTE | 2019-08-22 13:32 | Discharge Summary ---
Providers - Providers Date of Admission: 08/12/19 22:22 Attending physician: CLEMENTE WILKINSON MD 08/12/19 17:47 Consult to Physician [CONS] Urgent Comment: Consulting Provider: RAJ HARRIS Physician Instructions: Reason For Exam: esrd 08/14/19 12:09 Consult to Physician [CONS] Routine Comment: called answ. serv. /miguel Consulting Provider: GABY RICHARD Physician Instructions: Reason For Exam: Abn cardiac enzymes, severe pul HTN 08/14/19 12:15 Consult to Dietitian/Nutrition [CONS] Routine Physician Instructions: Reason For Exam: Reason for Consult: Write/Manage Tube Feeding 08/16/19 08:09 Consult to Physician [CONS] Routine Comment: Consulting Provider: MARY FLYNN Physician Instructions: Reason For Exam: ams 08/16/19 11:56 Physical Therapy Evaluation and Treat [CONS] Routine Comment: Reason For Exam: ataxia 08/16/19 15:37 Speech Therapy Evaluation and Treat [CONS] Routine Reason For Exam: dysphagia 08/18/19 10:01 Consult to Case Management [CONS] Routine Services Needed at Discharge: Other Comment:: JENNIE 08/18/19 14:39 Consult to Dietitian/Nutrition [CONS] Routine Physician Instructions: Reason For Exam: Reason for Consult: Malnutrition 08/19/19 13:11 Consult to Physician [CONS] Routine Comment: Consulting Provider: CHAY PALACIO Physician Instructions: Reason For Exam: fever 08/22/19 11:32 Consult to Wound/ET Nurse [CONS] Routine Reason For Exam: wound eval, sacral excoriations Primary care physician: CONTENT SPECIALIST Hospitalization Condition: Stable Hospital course: Sepsis secondary to pneumonia, not present on admission Disposition: DC/TX-06 HOME UNDER HOME [facility] Exam - Constitutional Vitals: Temp Pulse Resp BP Pulse Ox 98.4 F 73 18 150/53 97 08/22/19 08:58 08/22/19 12:53 08/22/19 08:58 08/22/19 12:53 08/22/19 08:27 Plan Follow up with: PRIMARY CARE, [Primary Care Provider] - 3-5 Days Prescriptions: levETIRAcetam [Keppra TAB] 500 mg PO BID #60 tablet oxyCODONE /ACETAMINOPHEN [Percocet 5/325 mg] 1 tab PO Q6H PRN #12 tablet PRN Reason: Pain, Moderate (4-6) Linagliptin [Tradjenta] 5 mg PO QDDIAB #30 tablet Lacosamide [Vimpat] 50 mg PO Q12HR #60 tablet
[2019-08-22 13:54] VITALS: BP 132/43
[2019-08-22] MEDS ORDERED: CEFEPIME/NS 1 GM/100 ML 1 GM/100 ML BAG IV SCH ×2 (15:00→17:00)
--- NOTE | 2019-08-22 15:02 | Progress Note ---
Assessment and Plan Cultures Blood culture 08/18/2019 no growth to date Blood culture 08/14/2019 no growth to date Urine culture 08/12/2019 no growth Assessment: 79 yo F pMHx HTN, DM2, CHF, ESRD, hepatitis C admitted with seizures and found to have fevers 1. Fevers - They seem to have self-resolved and the cultures have remained negative. She is not currently on antibiotics. ?Seizure related fevers. 2. Dm2 - Recommend tight glycemic control 3. ESRD on HD - 4. Hepatitis C Recs: - Continue to monitor off antibiotics Mariann Prince MD, FACP [facility] C: [phone] O: [phone] F: [phone] Subjective Date of service: 08/22/19 Principal diagnosis: esrd, post ictal state Interval history: No fever. Objective - Exam Narrative Exam: Physical Exam: Constitutional: Alert, cooperative. No acute distress Head, Ears, Nose: Normocephalic, atraumatic. External ears, nose normal Eyes: Conjunctivae/corneas clear. No icterus. No ptosis. Neck: Supple, no meningeal signs Oral: dentition fair, no thrush Cardiovascular: S1, S2 normal. Respiratory: Good air entry, clear to auscultation bilaterally GI: Soft, non-tender; bowel sounds normal. No peritoneal signs Musculoskeletal: No pedal edema, no cyanosis. Skin: No rash or abscess Hem/Lymphatic: No palpable cervical or supraclavicular nodes. No lymphangitis Psych: Mood ok. Affect normal Neurological: Awake, alert, oriented. No gross abnormality - Constitutional Vitals: Vital Signs Temp Pulse Resp BP Pulse Ox 98.4 F 80 20 132/43 100 08/22/19 13:39 08/22/19 13:39 08/22/19 13:39 08/22/19 13:39 08/22/19 13:39 Temperature -Last 24 Hours Temperature 98.4 F Temperature 98.4 F Temperature 98.4 F Temperature 98.5 F Temperature 98.3 F Temperature 98.1 F - Labs CBC & Chem 7: 08/18/19 06:22 08/21/19 04:20 Labs: Abnormal lab results 08/21/19 08/21/19 Range/Units 17:38 21:49 POC Glucose 270 H 135 H (70-105)
[2019-08-22] MEDS ORDERED: SODIUM CHLORIDE*PRIMING MACHINE ONLY FOR DIALYSIS MC ONE (22:51)
== END 2019-08-22 14:25 | disposition home health service (06) | DRG 100 ==
LOC: ED 15:42 → 2B-ACE 22:22
PROVIDERS: ADMIT Internal Medicine; ATTEND Internal Medicine
PROC: 4A033R1 Measurement of Arterial Saturation, Peripheral, Percutaneous Approach (ICD-10-PCS; principal; 2019-08-13)
PROC: 5A1D70Z Performance of Urinary Filtration, Intermittent, Less than 6 Hours Per Day (ICD-10-PCS; 2019-08-13)
PROC: 5A09357 Assistance with Respiratory Ventilation, Less than 24 Consecutive Hours, Continuous Positive Airway Pressure (ICD-10-PCS; 2019-08-13)
PROC: 5A09357 Assistance with Respiratory Ventilation, Less than 24 Consecutive Hours, Continuous Positive Airway Pressure (ICD-10-PCS; 2019-08-14)
PROC: 5A1D70Z Performance of Urinary Filtration, Intermittent, Less than 6 Hours Per Day (ICD-10-PCS; 2019-08-15)
PROC: 5A09357 Assistance with Respiratory Ventilation, Less than 24 Consecutive Hours, Continuous Positive Airway Pressure (ICD-10-PCS; 2019-08-15)
PROC: 5A09357 Assistance with Respiratory Ventilation, Less than 24 Consecutive Hours, Continuous Positive Airway Pressure (ICD-10-PCS; 2019-08-16)
PROC: 5A1D70Z Performance of Urinary Filtration, Intermittent, Less than 6 Hours Per Day (ICD-10-PCS; 2019-08-17)
PROC: 5A09357 Assistance with Respiratory Ventilation, Less than 24 Consecutive Hours, Continuous Positive Airway Pressure (ICD-10-PCS; 2019-08-17)
PROC: 5A1D70Z Performance of Urinary Filtration, Intermittent, Less than 6 Hours Per Day (ICD-10-PCS; 2019-08-19)
PROC: 5A1D70Z Performance of Urinary Filtration, Intermittent, Less than 6 Hours Per Day (ICD-10-PCS; 2019-08-22)
DX: G40.901 Epilepsy, unspecified, not intractable, with status epilepticus (principal); A41.9 Sepsis, unspecified organism; I21.A1 Myocardial infarction type 2; N18.6 End stage renal disease; G93.41 Metabolic encephalopathy; J18.9 Pneumonia, unspecified organism; J96.01 Acute respiratory failure with hypoxia; I13.2 Hypertensive heart and chronic kidney disease with heart failure and with stage 5 chronic kidney disease, or end stage renal disease; N25.81 Secondary hyperparathyroidism of renal origin; E44.0 Moderate protein-calorie malnutrition; Z68.1 Body mass index [BMI] 19.9 or less, adult; D69.6 Thrombocytopenia, unspecified; I50.9 Heart failure, unspecified; E11.22 Type 2 diabetes mellitus with diabetic chronic kidney disease; B19.20 Unspecified viral hepatitis C without hepatic coma; I27.20 Pulmonary hypertension, unspecified; I35.0 Nonrheumatic aortic (valve) stenosis; D63.1 Anemia in chronic kidney disease; S30.810A Abrasion of lower back and pelvis, initial encounter; I16.0 Hypertensive urgency; E87.5 Hyperkalemia; E11.65 Type 2 diabetes mellitus with hyperglycemia; Z79.82 Long term (current) use of aspirin; Z79.899 Other long term (current) drug therapy; Z99.2 Dependence on renal dialysis; Y93.89 Activity, other specified; Y92.89 Other specified places as the place of occurrence of the external cause; Y99.8 Other external cause status
CPT/HCPCS: 36415; 36600; 70450; 70551; 71045; 72141; 74018; 80048; 80053; 80061; 80074; 80076; 80307; 80320; 81001; 82140; 82550; 82553; 82803; 82962; 83735; 84100; 84132; 84443; 84484; 85025; 85610; 85730; 86850; 86900; 86901; 87040; 87086; 87116; 93005; 93010; 93306; 94660; 94760; 95819; 96374; 96375; G0378; G0480; J0360; J0610; J0692; J1650; J1815; J1953; J7030; J7042

== ENCOUNTER 2020-09-05 12:50 | Emergency (ER) | payer MEDICARE ==
[2020-09-05 15:24] LABS: Basophils % (Auto) 0.6 % (0.0-1.8); Eosinophils # (Auto) 0.1 K/mm3 (0.0-0.4); Hematocrit 29.8 % (30.3-42.9); Hemoglobin 9.5 gm/dl (10.1-14.3); Lymphocytes % (Auto) 21.9 % (13.4-35.0); Mean Corpuscular HGB Conc 32 % (30-34); Mean Corpuscular Volume 96 fl (79-97); Monocytes # (Auto) 0.6 K/mm3 (0.0-0.8); Monocytes % (Auto) 12.7 % (0.0-7.3); Red Blood Count 3.11 M/mm3 (3.65-5.03); Red Cell Distribution Width 18.8 % (13.2-15.2)
[2020-09-05 15:32] LABS: Platelet Count 85 K/mm3 (140-440)
[2020-09-05 15:35] LABS: INR 1.04 (0.87-1.13)
[2020-09-05 15:36] LABS: Partial Thromboplastin Time 30.9 Sec. (24.2-36.6)
[2020-09-05 15:45] LABS: Albumin 3.1 g/dL (3.9-5); Calcium 8.8 mg/dL (8.4-10.2)
--- NOTE | 2020-09-05 20:12 | Emergency Department Report ---
ED General Adult HPI - General Chief complaint: Extremity Injury, Upper Stated complaint: CHEST PAIN Time Seen by Provider: 09/05/20 19:44 Source: patient Mode of arrival: Ambulatory Limitations: No Limitations - History of Present Illness Initial comments: Patient is a 80-year-old female with a past medical history of CHF, diabetes, GERD, HIV, hypertension, vascular dementia, end-stage renal disease on hemodialysis Thursday, seizures, left upper extremity graft who presents emergency room for evaluation of left upper extremity cast. Patient states that she broke her left upper extremity 22 months ago and is here for cast removal. She denies any other acute complaints on my assessment. Per chart review there are no notes from orthopedics and it is unclear when or where the cast was placed. Patient is not able to provide these details. - Related Data Home Medications Medication Instructions Recorded Confirmed Last Taken Aspirin 81 mg PO DAILY 08/13/18 08/06/20 08/11/18 Previous Rx's Medication Instructions Recorded Last Taken Type Acetaminophen [Acetaminophen TAB] 650 mg PO Q4H PRN tablet 09/02/18 Unknown Rx Lispro Insulin [HumaLOG] 0 unit SUB-Q ACHS units 09/02/18 Unknown Rx ISOSORBIDE MONOnitrate [Imdur ER] 60 mg PO DAILY tablet 10/15/18 Unknown Rx carvediloL [Coreg] 12.5 mg PO BID tablet 10/15/18 Unknown Rx Losartan [Cozaar] 50 mg PO QDAY #30 tablet 11/01/18 Unknown Rx Lacosamide [Vimpat] 50 mg PO Q12HR #60 tablet 08/22/19 Unknown Rx Linagliptin [Tradjenta] 5 mg PO QDDIAB #30 tablet 08/22/19 Unknown Rx levETIRAcetam [Keppra TAB] 500 mg PO BID #60 tablet 08/22/19 Unknown Rx oxyCODONE /ACETAMINOPHEN [Percocet 1 tab PO Q6H PRN #12 tablet 08/22/19 Unknown Rx 5/325 mg] Famotidine [Pepcid] 20 mg PO DAILY #30 tablet 08/07/20 Unknown Rx NIFEdipine XL [Procardia Xl] 60 mg PO Q12HR #60 tablet 08/07/20 Unknown Rx hydrALAZINE [Apresoline TAB] 100 mg PO Q8HR #90 tab 08/07/20 Unknown Rx megestroL [Megestrol] 400 mg PO QDAY 30 Days #1 oral.liqd 08/07/20 Unknown Rx Allergies Allergy/AdvReac Type Severity Reaction Status Date / Time No Known Allergies Allergy Unverified 02/02/18 15:43 ED Review of Systems ROS: Stated complaint: CHEST PAIN Other details as noted in HPI Constitutional: denies: chills, fever Eyes: denies: eye pain, eye discharge, vision change ENT: denies: ear pain, throat pain Respiratory: denies: cough, shortness of breath, wheezing Cardiovascular: denies: chest pain, palpitations Endocrine: no symptoms reported Gastrointestinal: denies: abdominal pain, nausea, diarrhea Genitourinary: denies: urgency, dysuria, discharge Musculoskeletal: other (lUE cast removal). denies: back pain, joint swelling, arthralgia Skin: denies: rash, lesions Neurological: denies: headache, weakness, paresthesias Psychiatric: denies: anxiety, depression Hematological/Lymphatic: denies: easy bleeding, easy bruising ED Past Medical Hx - Past Medical History Previous Medical History?: Yes Hx Hypertension: Yes Hx CVA: Yes Hx Congestive Heart Failure: Yes Hx Diabetes: Yes Hx GERD: Yes Hx Renal Disease: Yes (esrd on dialysis M,W,F) Hx Seizures: Yes Hx HIV: No Additional medical history: ESRD, Dialysis - Surgical History Past Surgical History?: Yes Additional Surgical History: Graft PA - Social History Smoking Status: Never Smoker Substance Use Type: None - Medications Home Medications: Home Medications Medication Instructions Recorded Confirmed Last Taken Type Aspirin 81 mg PO DAILY 08/13/18 08/06/20 08/11/18 History Acetaminophen [Acetaminophen TAB] 650 mg PO Q4H PRN tablet 09/02/18 08/06/20 Unknown Rx Lispro Insulin [HumaLOG] 0 unit SUB-Q ACHS units 09/02/18 08/06/20 Unknown Rx ISOSORBIDE MONOnitrate [Imdur ER] 60 mg PO DAILY tablet 10/15/18 08/06/20 Unknown Rx carvediloL [Coreg] 12.5 mg PO BID tablet 10/15/18 08/06/20 Unknown Rx Losartan [Cozaar] 50 mg PO QDAY #30 tablet 11/01/18 08/06/20 Unknown Rx Lacosamide [Vimpat] 50 mg PO Q12HR #60 tablet 08/22/19 08/06/20 Unknown Rx Linagliptin [Tradjenta] 5 mg PO QDDIAB #30 tablet 08/22/19 08/06/20 Unknown Rx levETIRAcetam [Keppra TAB] 500 mg PO BID #60 tablet 08/22/19 08/06/20 Unknown Rx oxyCODONE /ACETAMINOPHEN [Percocet 1 tab PO Q6H PRN #12 tablet 08/22/19 08/06/20 Unknown Rx 5/325 mg] Famotidine [Pepcid] 20 mg PO DAILY #30 tablet 08/07/20 Unknown Rx NIFEdipine XL [Procardia Xl] 60 mg PO Q12HR #60 tablet 08/07/20 Unknown Rx hydrALAZINE [Apresoline TAB] 100 mg PO Q8HR #90 tab 08/07/20 Unknown Rx megestroL [Megestrol] 400 mg PO QDAY 30 Days #1 oral.liqd 08/07/20 Unknown Rx ED Physical Exam - General Limitations: No Limitations General appearance: alert, in no apparent distress - Head Head exam: Present: atraumatic, normocephalic - Eye Eye exam: Present: normal appearance - ENT ENT exam: Present: mucous membranes moist - Neck Neck exam: Present: normal inspection - Respiratory Respiratory exam: Present: normal lung sounds bilaterally. Absent: respiratory distress - Cardiovascular Cardiovascular Exam: Present: regular rate, normal rhythm. Absent: systolic murmur, diastolic murmur, rubs, gallop - GI/Abdominal GI/Abdominal exam: Present: soft, normal bowel sounds - Extremities Exam Extremities exam: Present: normal inspection - Expanded Upper Extremity Exam Left Upper Arm exam: Present: other (thin appearing arm with fistula noted. ) Forearm Wrist exam: Present: full ROM (Able to wiggle fingers distally), swelli ng (In the distal fingers noted.), other (Patient has a dirty cast on her left upper extremity.) - Back Exam Back exam: Present: normal inspection, other (severe kyphosis noted.) - Neurological Exam Neurological exam: Present: alert, oriented X3 - Psychiatric Psychiatric exam: Present: normal affect, normal mood - Skin Skin exam: Present: warm, dry, intact, normal color. Absent: rash ED Course - Reevaluation(s) Reevaluation #1: Patient's x-ray of her left forearm demonstrates a fracture with routine incomplete healing. We will not remove cast here in the emergency room today but will discharge patient home with orthopedic follow-up as an outpatient. These findings were explained to the patient and she expressed understanding and agreement of the plan of care as an outpatient. The remainder of the patient's labs are unremarkable in light of her presenting complaints. Disposition sent to discharge. 09/05/20 20:55 ED Medical Decision Making - Lab Data Result diagrams: 09/05/20 14:48 09/05/20 14:48 Laboratory Tests 09/05/20 09/05/20 09/05/20 14:48 14:48 14:48 WBC 4.5 RBC 3.11 L Hgb 9.5 L Hct 29.8 L MCV 96 MCH 31 MCHC 32 RDW 18.8 H Plt Count 85 L Lymph % (Auto) 21.9 Fleming % (Auto) 12.7 H Eos % (Auto) 3.0 Baso % (Auto) 0.6 Lymph # (Auto) 1.0 L Fleming # (Auto) 0.6 Eos # (Auto) 0.1 Baso # (Auto) 0.0 Seg Neutrophils % 61.8 Seg Neutrophils # 2.8 PT 13.5 INR 1.04 APTT 30.9 Sodium 132 L Potassium 4.6 Chloride 95.9 L Carbon Dioxide 27 Anion Gap 14 BUN 34 H Creatinine 4.1 H Estimated GFR 13 BUN/Creatinine Ratio 8 Glucose 106 H Calcium 8.8 Phosphorus Magnesium Total Bilirubin 0.60 AST 21 ALT 11 Alkaline Phosphatase 58 Total Protein 7.3 Albumin 3.1 L Albumin/Globulin Ratio 0.7 09/05/20 14:48 WBC RBC Hgb Hct MCV MCH MCHC RDW Plt Count Lymph % (Auto) Fleming % (Auto) Eos % (Auto) Baso % (Auto) Lymph # (Auto) Fleming # (Auto) Eos # (Auto) Baso # (Auto) Seg Neutrophils % Seg Neutrophils # PT INR APTT Sodium Potassium Chloride Carbon Dioxide Anion Gap BUN Creatinine Estimated GFR BUN/Creatinine Ratio Glucose Calcium Phosphorus 3.60 Magnesium 1.90 Total Bilirubin AST ALT Alkaline Phosphatase Total Protein Albumin Albumin/Globulin Ratio - Medical Decision Making Patient is a 80-year-old female with multiple medical problems as previously listed who presents emergency room for evaluation of left upper extremity cast. Patient states she would like to have the cast removed. Basic labs were ordered from triage which were unremarkable in light of the patient's known end-stage renal disease. Patient had no emergent need for dialysis. A repeat x-ray of the left upper extremity was ordered to determine what stage of healing the patient's extremity was in. As well as to determine her candidacy for cast removal. Patient will disposition pending her ED work-up. Critical care attestation.: If time is entered above; I have spent that time in minutes in the direct care of this critically ill patient, excluding procedure time. ED Disposition Clinical Impression: Distal radius fracture, left Disposition: [id number] TO HOME OR SELFCARE Is pt being admited?: No Does the pt Need Aspirin: No Condition: Good Instructions: Cast or Splint Care, Adult, [id number], Radial Fracture Rehab-SportsMed, Radial Head Fracture, [id number], Cast or Splint Care, Adult Referrals: PRIMARY CARE, [Primary Care Provider] - 3-5 Days DAMION LENTZ MD [Staff Physician] - 3-5 Days Time of Disposition: 20:57
--- NOTE | 2020-09-05 21:25 | XRay Report ---
LEFT FOREARM 2 VIEW(S) INDICATION / CLINICAL INFORMATION: MAIN COMPARISON: None available. FINDINGS: BONES / JOINT(S): Healing, possibly subacute or chronic distal radius fracture with cast material ove rlying the forearm. Distal radial fracture is approximately 1 cm foreshortening and there is minimal medial displacement of the proximal fracture fragment. Subtle discontinuity at the ulnar styloid sugg ests nondisplaced ulnar styloid fracture. If these fractures are chronic some component of nonunion m ay be present. Consider further evaluation as warranted. Degenerative osteoarthrosis. SOFT TISSUES: Minimal form edema. ADDITIONAL FINDINGS: None. Signer Name: Steve Ulrich MD Signed: 09/05/2020 9:20 PM Workstation Name: [id number]
== END 2020-09-05 23:11 | disposition home or self-care (01) ==
LOC: ED 12:50
DX: S52.502A Unspecified fracture of the lower end of left radius, initial encounter for closed fracture (principal); I13.2 Hypertensive heart and chronic kidney disease with heart failure and with stage 5 chronic kidney disease, or end stage renal disease; I50.9 Heart failure, unspecified; N18.6 End stage renal disease; E11.22 Type 2 diabetes mellitus with diabetic chronic kidney disease; K21.9 Gastro-esophageal reflux disease without esophagitis; F03.90 Unspecified dementia, unspecified severity, without behavioral disturbance, psychotic disturbance, mood disturbance, and anxiety; Z99.2 Dependence on renal dialysis; Z98.890 Other specified postprocedural states; Z79.899 Other long term (current) drug therapy; Z86.73 Personal history of transient ischemic attack (TIA), and cerebral infarction without residual deficits; Z21 Asymptomatic human immunodeficiency virus [HIV] infection status; X58.XXXA Exposure to other specified factors, initial encounter; Y93.89 Activity, other specified; Y92.89 Other specified places as the place of occurrence of the external cause; Y99.8 Other external cause status
CPT/HCPCS: 36415; 80053; 83735; 84100; 85025; 85610; 85730

== ENCOUNTER 2020-10-01 09:32 | Inpatient (IN) | payer MEDICARE ==
[2020-10-01] MEDS ORDERED: NALOXONE 0.4 MG/1 ML INJ IV ONE (11:01)
--- NOTE | 2020-10-01 11:20 | Emergency Department Report ---
ED Altered Mental Status HPI - General Chief Complaint: Weakness Stated Complaint: WEAKNESS PUI?: No Time Seen by Provider: 10/01/20 10:57 Source: EMS Mode of arrival: Stretcher Limitations: Altered Mental Status, Physical Limitation - History of Present Illness Initial Comments: Chief complaint: Altered mental status, seizure HPI: This is a 80-year-old female who presents via EMS with report of seizure and altered mental status. Past medical history includes encephalopathy, pneumonia, UTI, end-stage renal disease on hemodialysis, seizure disorder, insulin-dependent diabetes, coronary artery disease, hyperlipidemia, GERD, anemia, aortic stenosis, pulmonary hypertension, sepsis, dialysis disequilibrium syndrome, hypertension. She currently has a splint in place on the left upper extremity for distal radius fracture. Last night patient was evaluated [facility] for seizure activity. She was discharged to follow-up with family medicine physician. Today family members called EMS for seizure activity. EMS witnessed the episode. EMS did not detect seizure activity. Family members would not give a dditional information to EMS. Patient has not had dialysis in over a week. Patient is altered. She is nonverbal at this time. History obtained from EMS report in electronic medical record. Upon review of electronic medical record, recent discharge summary highlighted possible vascular dementia. Patient was diagnosed with metabolic encephalopathy. I spoke with POA clinical decision maker grandevgeny Tyson . He explained that patient lives with his sister patient's granddaughter and his nephew. I explained to Mr. Tyson that I was unable to contact granddaughter for collateral information. He informed me that her cell phone is currently out of use. Mr. Tyson's main concern is additional home health care and support for the 2 caregivers. I encouraged him to call our case picker at his convenience for additional resources. According to EMR, patient dialyzes at [facility] [place], Dr. Bey. Medications listed on discharge summary from yesterday's evaluation at [facility] Amlodipine 10 mg daily Atorvastatin 40 mg daily B complex vitamin C folic acid 1 capsule daily Carvedilol 12.5 mg twice daily Depakote sprinkles 4 500 mg total twice daily Colace 100 mg twice daily Hydralazine 100 mg 3 times daily Imdur 120 mg daily Keppra 500 mg twice daily Percocet 1 tablet p.o. every 4 hours as needed Pantoprazole 40 mg daily Januvia 25 mg daily Complaint: altered mental status, decreased responsiveness -: This morning Severity: moderate Consistency of Symptoms: getting worse Context: history of similar presen Associated Symptoms: seizure - Related Data Home Medications Medication Instructions Recorded Confirmed Last Taken Aspirin 81 mg PO DAILY 08/13/18 09/12/20 08/11/18 Previous Rx's Medication Instructions Recorded Last Taken Type Acetaminophen [Acetaminophen TAB] 650 mg PO Q4H PRN tablet 09/02/18 Unknown Rx Lispro Insulin [HumaLOG] 0 unit SUB-Q ACHS units 09/02/18 Unknown Rx ISOSORBIDE MONOnitrate [Imdur ER] 60 mg PO DAILY tablet 10/15/18 Unknown Rx carvediloL [Coreg] 12.5 mg PO BID tablet 10/15/18 Unknown Rx Losartan [Cozaar] 50 mg PO QDAY #30 tablet 11/01/18 Unknown Rx Lacosamide [Vimpat] 50 mg PO Q12HR #60 tablet 08/22/19 Unknown Rx Linagliptin [Tradjenta] 5 mg PO QDDIAB #30 tablet 08/22/19 Unknown Rx levETIRAcetam [Keppra TAB] 500 mg PO BID #60 tablet 08/22/19 Unknown Rx Famotidine [Pepcid] 20 mg PO DAILY #30 tablet 08/07/20 Unknown Rx NIFEdipine XL [Procardia Xl] 60 mg PO Q12HR #60 tablet 08/07/20 Unknown Rx hydrALAZINE [Apresoline TAB] 100 mg PO Q8HR #90 tab 08/07/20 Unknown Rx megestroL [Megestrol] 400 mg PO QDAY 30 Days #1 oral.liqd 08/07/20 Unknown Rx Allergies Allergy/AdvReac Type Severity Reaction Status Date / Time No Known Allergies Allergy Unverified 02/02/18 15:43 ED Review of Systems ROS: Stated complaint: WEAKNESS Other details as noted in HPI Comment: Unobtainable due to pts medical conditions (Altered mental status) ED Past Medical Hx - Past Medical History Previous Medical History?: Yes Hx Hypertension: Yes Hx CVA: Yes Hx Congestive Heart Failure: Yes Hx Diabetes: Yes Hx GERD: Yes Hx Renal Disease: Yes (esrd on dialysis M,W,F) Hx Seizures: Yes Hx HIV: No Additional medical history: ESRD, Dialysis - Surgical History Past Surgical History?: Yes Additional Surgical History: Graft PA - Social History Smoking Status: Unknown if ever smoked - Medications Home Medications: Home Medications Medication Instructions Recorded Confirmed Last Taken Type Aspirin 81 mg PO DAILY 08/13/18 09/12/20 08/11/18 History Acetaminophen [Acetaminophen TAB] 650 mg PO Q4H PRN tablet 09/02/18 09/12/20 Unknown Rx Lispro Insulin [HumaLOG] 0 unit SUB-Q ACHS units 09/02/18 09/12/20 Unknown Rx ISOSORBIDE MONOnitrate [Imdur ER] 60 mg PO DAILY tablet 10/15/18 09/12/20 Unknown Rx carvediloL [Coreg] 12.5 mg PO BID tablet 10/15/18 09/12/20 Unknown Rx Losartan [Cozaar] 50 mg PO QDAY #30 tablet 11/01/18 09/12/20 Unknown Rx Lacosamide [Vimpat] 50 mg PO Q12HR #60 tablet 08/22/19 09/12/20 Unknown Rx Linagliptin [Tradjenta] 5 mg PO QDDIAB #30 tablet 08/22/19 09/12/20 Unknown Rx levETIRAcetam [Keppra TAB] 500 mg PO BID #60 tablet 08/22/19 09/12/20 Unknown Rx Famotidine [Pepcid] 20 mg PO DAILY #30 tablet 08/07/20 09/12/20 Unknown Rx NIFEdipine XL [Procardia Xl] 60 mg PO Q12HR #60 tablet 08/07/20 09/12/20 Unknown Rx hydrALAZINE [Apresoline TAB] 100 mg PO Q8HR #90 tab 08/07/20 09/12/20 Unknown Rx megestroL [Megestrol] 400 mg PO QDAY 30 Days #1 oral.liqd 08/07/20 09/12/20 Unknown Rx ED Physical Exam - General Limitations: Physical Limitation General appearance: lethargic, other (Protecting airway,Nonverbal, keeps eyes closed, will not answer questions will withdraw from noxious stimuli) - Head Head exam: Present: atraumatic, normocephalic - Eye Eye exam: Present: normal appearance, other (Pinpoint sluggish equal pupils) - ENT ENT exam: Present: mucous membranes dry, other (No oropharyngeal lesions.) - Neck Neck exam: Present: normal inspection - Respiratory Respiratory exam: Present: normal lung sounds bilaterally. Absent: respiratory distress, wheezes, rales, rhonchi - Cardiovascular Cardiovascular Exam: Present: regular rate, normal rhythm, normal heart sounds. Absent: rubs, gallop - GI/Abdominal GI/Abdominal exam: Present: soft. Absent: distended, tenderness, guarding, rebound - Extremities Exam Extremities exam: Present: other (Left upper extremity: Splint left forearm) - Neurological Exam Neurological exam: Present: altered - Psychiatric Psychiatric exam: Present: flat affect - Skin Skin exam: Present: warm, dry, intact, normal color. Absent: rash ED Course Vital Signs 10/01/20 10/01/20 10:30 10:57 Temperature 99.7 F H 99.7 F H Pulse Rate 84 Respiratory 17 Rate Blood Pressure 190/66 [Right] O2 Sat by Pulse 95 Oximetry - Lab Data Result diagrams: 10/01/20 11:39 10/01/20 14:32 Lab Results 10/01/20 10/01/20 10/01/20 Range/Units 11:39 11:39 11:39 WBC 3.4 L (4.5-11.0) K/mm3 RBC 2.70 L (3.65-5.03) M/mm3 Hgb 8.5 L (10.1-14.3) gm/dl Hct 25.5 L (30.3-42.9) % MCV 95 (79-97) fl MCH 32 (28-32) pg MCHC 33 (30-34) % RDW 17.8 H (13.2-15.2) % Plt Count 110 L (140-440) K/mm3 Lymph % (Auto) 11.2 L (13.4-35.0) % [place] % (Auto) 10.2 H (0.0-7.3) % Eos % (Auto) 0.2 (0.0-4.3) % Baso % (Auto) 0.6 (0.0-1.8) % Lymph # (Auto) 0.4 L (1.2-5.4) K/mm3 [place] # (Auto) 0.4 (0.0-0.8) K/mm3 Eos # (Auto) 0.0 (0.0-0.4) K/mm3 Baso # (Auto) 0.0 (0.0-0.1) K/mm3 Seg Neutrophils % 77.8 H (40.0-70.0) % Seg Neutrophils # 2.7 (1.8-7.7) K/mm3 D-Dimer (0-234) ng/mlDDU Sodium 135 L (137-145) mmol/L Potassium 4.8 (3.6-5.0) mmol/L Chloride 97.4 L (98-107) mmol/L Carbon Dioxide 28 (22-30) mmol/L Anion Gap 14 mmol/L BUN 34 H (7-17) mg/dL Creatinine 4.9 H (0.6-1.2) mg/dL Estimated GFR 10 ml/min BUN/Creatinine Ratio 7 % Glucose 87 (65-100) mg/dL Lactic Acid 0.70 (0.7-2.0) mmol/L Calcium 8.1 L (8.4-10.2) mg/dL Ferritin (10.0-200.0) ng/mL Total Bilirubin 0.50 (0.1-1.2) mg/dL AST 26 (5-40) units/L ALT 9 (7-56) units/L Alkaline Phosphatase 50 (35-129) units/L Ammonia (25-60) umol/L Lactate Dehydrogenase (91-180) units/L Total Creatine Kinase 54 (30-135) units/L C-Reactive Protein (0.00-1.30) mg/dL Total Protein 5.9 L (6.3-8.2) g/dL Albumin 2.6 L (3.9-5) g/dL Albumin/Globulin Ratio 0.8 % TSH (0.270-4.200) mlU/mL Urine Color (Yellow) Urine Turbidity (Clear) Urine pH (5.0-7.0) Ur Specific [place] (1.003-1.030) Urine Protein (Negative) mg/dL Urine Glucose (UA) (Negative) mg/dL Urine Ketones (Negative) mg/dL Urine Blood (Negative) Urine Nitrite (Negative) Urine Bilirubin (Negative) Urine Urobilinogen (<2.0) mg/dL Ur Leukocyte Esterase (Negative) Urine WBC (Auto) (0.0-6.0) /HPF Urine RBC (Auto) (0.0-6.0) /HPF U Epithel Cells (Auto) (0-13.0) /HPF Urine Bacteria (Auto) (Negative) /HPF Urine WBC Clumps /HPF Urine Mucus /HPF Salicylates (2.8-20.0) mg/dL Urine Opiates Screen Urine Methadone Screen Acetaminophen (10.0-30.0) ug/mL Ur Barbiturates Screen Ur Phencyclidine Scrn Ur Amphetamines Screen U Benzodiazepines Scrn Urine Cocaine Screen U Marijuana (THC) Screen Drugs of Abuse Note 10/01/20 10/01/20 10/01/20 Range/Units 11:39 11:39 11:39 WBC (4.5-11.0) K/mm3 RBC (3.65-5.03) M/mm3 Hgb (10.1-14.3) gm/dl Hct (30.3-42.9) % MCV (79-97) fl MCH (28-32) pg MCHC (30-34) % RDW (13.2-15.2) % Plt Count (140-440) K/mm3 Lymph % (Auto) (13.4-35.0) % [place] % (Auto) (0.0-7.3) % Eos % (Auto) (0.0-4.3) % Baso % (Auto) (0.0-1.8) % Lymph # (Auto) (1.2-5.4) K/mm3 [place] # (Auto) (0.0-0.8) K/mm3 Eos # (Auto) (0.0-0.4) K/mm3 Baso # (Auto) (0.0-0.1) K/mm3 Seg Neutrophils % (40.0-70.0) % Seg Neutrophils # (1.8-7.7) K/mm3 D-Dimer (0-234) ng/mlDDU Sodium (137-145) mmol/L Potassium (3.6-5.0) mmol/L Chloride (98-107) mmol/L Carbon Dioxide (22-30) mmol/L Anion Gap mmol/L BUN (7-17) mg/dL Creatinine (0.6-1.2) mg/dL Estimated GFR ml/min BUN/Creatinine Ratio % Glucose (65-100) mg/dL Lactic Acid (0.7-2.0) mmol/L Calcium (8.4-10.2) mg/dL Ferritin (10.0-200.0) ng/mL Total Bilirubin (0.1-1.2) mg/dL AST (5-40) units/L ALT (7-56) units/L Alkaline Phosphatase (35-129) units/L Ammonia 20.0 L (25-60) umol/L Lactate Dehydrogenase (91-180) units/L Total Creatine Kinase (30-135) units/L C-Reactive Protein (0.00-1.30) mg/dL Total Protein (6.3-8.2) g/dL Albumin (3.9-5) g/dL Albumin/Globulin Ratio % TSH 6.100 H (0.270-4.200) mlU/mL Urine Color (Yellow) Urine Turbidity (Clear) Urine pH (5.0-7.0) Ur Specific [place] (1.003-1.030) Urine Protein (Negative) mg/dL Urine Glucose (UA) (Negative) mg/dL Urine Ketones (Negative) mg/dL Urine Blood (Negative) Urine Nitrite (Negative) Urine Bilirubin (Negative) Urine Urobilinogen (<2.0) mg/dL Ur Leukocyte Esterase (Negative) Urine WBC (Auto) (0.0-6.0) /HPF Urine RBC (Auto) (0.0-6.0) /HPF U Epithel Cells (Auto) (0-13.0) /HPF Urine Bacteria (Auto) (Negative) /HPF Urine WBC Clumps /HPF Urine Mucus /HPF Salicylates < 0.3 L (2.8-20.0) mg/dL Urine Opiates Screen Urine Methadone Screen Acetaminophen (10.0-30.0) ug/mL Ur Barbiturates Screen Ur Phencyclidine Scrn Ur Amphetamines Screen U Benzodiazepines Scrn Urine Cocaine Screen U Marijuana (THC) Screen Drugs of Abuse Note 10/01/20 10/01/20 10/01/20 Range/Units 11:39 13:15 13:15 WBC (4.5-11.0) K/mm3 RBC (3.65-5.03) M/mm3 Hgb (10.1-14.3) gm/dl Hct (30.3-42.9) % MCV (79-97) fl MCH (28-32) pg MCHC (30-34) % RDW (13.2-15.2) % Plt Count (140-440) K/mm3 Lymph % (Auto) (13.4-35.0) % [place] % (Auto) (0.0-7.3) % Eos % (Auto) (0.0-4.3) % Baso % (Auto) (0.0-1.8) % Lymph # (Auto) (1.2-5.4) K/mm3 [place] # (Auto) (0.0-0.8) K/mm3 Eos # (Auto) (0.0-0.4) K/mm3 Baso # (Auto) (0.0-0.1) K/mm3 Seg Neutrophils % (40.0-70.0) % Seg Neutrophils # (1.8-7.7) K/mm3 D-Dimer (0-234) ng/mlDDU Sodium (137-145) mmol/L Potassium (3.6-5.0) mmol/L Chloride (98-107) mmol/L Carbon Dioxide (22-30) mmol/L Anion Gap mmol/L BUN (7-17) mg/dL Creatinine (0.6-1.2) mg/dL Estimated GFR ml/min BUN/Creatinine Ratio % Glucose (65-100) mg/dL Lactic Acid (0.7-2.0) mmol/L Calcium (8.4-10.2) mg/dL Ferritin (10.0-200.0) ng/mL Total Bilirubin (0.1-1.2) mg/dL AST (5-40) units/L ALT (7-56) units/L Alkaline Phosphatase (35-129) units/L Ammonia (25-60) umol/L Lactate Dehydrogenase (91-180) units/L Total Creatine Kinase (30-135) units/L C-Reactive Protein (0.00-1.30) mg/dL Total Protein (6.3-8.2) g/dL Albumin (3.9-5) g/dL Albumin/Globulin Ratio % TSH (0.270-4.200) mlU/mL Urine Color [place] (Yellow) Urine Turbidity Cloudy (Clear) Urine pH 7.0 (5.0-7.0) Ur Specific [place] 1.012 (1.003-1.030) Urine Protein >500 (Negative) mg/dL Urine Glucose (UA) Neg (Negative) mg/dL Urine Ketones Neg (Negative) mg/dL Urine Blood Sm (Negative) Urine Nitrite Neg (Negative) Urine Bilirubin Neg (Negative) Urine Urobilinogen < 2.0 (<2.0) mg/dL Ur Leukocyte Esterase Lg (Negative) Urine WBC (Auto) > 182.0 H (0.0-6.0) /HPF Urine RBC (Auto) 18.0 (0.0-6.0) /HPF U Epithel Cells (Auto) 4.0 (0-13.0) /HPF Urine Bacteria (Auto) 1+ (Negative) /HPF Urine WBC Clumps 2+ /HPF Urine Mucus Few /HPF Salicylates (2.8-20.0) mg/dL Urine Opiates Screen Negative Urine Methadone Screen Negative Acetaminophen 5.0 L (10.0-30.0) ug/mL Ur Barbiturates Screen Negative Ur Phencyclidine Scrn Negative Ur Amphetamines Screen Negative U Benzodiazepines Scrn Negative Urine Cocaine Screen Negative U Marijuana (THC) Screen Negative Drugs of Abuse Note Disclamer 10/01/20 10/01/20 10/01/20 Range/Units 14:32 14:32 14:32 WBC (4.5-11.0) K/mm3 RBC (3.65-5.03) M/mm3 Hgb (10.1-14.3) gm/dl Hct (30.3-42.9) % MCV (79-97) fl MCH (28-32) pg MCHC (30-34) % RDW (13.2-15.2) % Plt Count (140-440) K/mm3 Lymph % (Auto) (13.4-35.0) % [place] % (Auto) (0.0-7.3) % Eos % (Auto) (0.0-4.3) % Baso % (Auto) (0.0-1.8) % Lymph # (Auto) (1.2-5.4) K/mm3 [place] # (Auto) (0.0-0.8) K/mm3 Eos # (Auto) (0.0-0.4) K/mm3 Baso # (Auto) (0.0-0.1) K/mm3 Seg Neutrophils % (40.0-70.0) % Seg Neutrophils # (1.8-7.7) K/mm3 D-Dimer 1617.54 H (0-234) ng/mlDDU Sodium (137-145) mmol/L Potassium (3.6-5.0) mmol/L Chloride (98-107) mmol/L Carbon Dioxide (22-30) mmol/L Anion Gap mmol/L BUN (7-17) mg/dL Creatinine (0.6-1.2) mg/dL Estimated GFR ml/min BUN/Creatinine Ratio % Glucose 89 (65-100) mg/dL Lactic Acid (0.7-2.0) mmol/L Calcium (8.4-10.2) mg/dL Ferritin 1996.0 H (10.0-200.0) ng/mL Total Bilirubin (0.1-1.2) mg/dL AST (5-40) units/L ALT (7-56) units/L Alkaline Phosphatase (35-129) units/L Ammonia (25-60) umol/L Lactate Dehydrogenase 220 H (91-180) units/L Total Creatine Kinase (30-135) units/L C-Reactive Protein 4.00 H (0.00-1.30) mg/dL Total Protein (6.3-8.2) g/dL Albumin (3.9-5) g/dL Albumin/Globulin Ratio % TSH (0.270-4.200) mlU/mL Urine Color (Yellow) Urine Turbidity (Clear) Urine pH (5.0-7.0) Ur Specific [place] (1.003-1.030) Urine Protein (Negative) mg/dL Urine Glucose (UA) (Negative) mg/dL Urine Ketones (Negative) mg/dL Urine Blood (Negative) Urine Nitrite (Negative) Urine Bilirubin (Negative) Urine Urobilinogen (<2.0) mg/dL Ur Leukocyte Esterase (Negative) Urine WBC (Auto) (0.0-6.0) /HPF Urine RBC (Auto) (0.0-6.0) /HPF U Epithel Cells (Auto) (0-13.0) /HPF Urine Bacteria (Auto) (Negative) /HPF Urine WBC Clumps /HPF Urine Mucus /HPF Salicylates (2.8-20.0) mg/dL Urine Opiates Screen Urine Methadone Screen Acetaminophen (10.0-30.0) ug/mL Ur Barbiturates Screen Ur Phencyclidine Scrn Ur Amphetamines Screen U Benzodiazepines Scrn Urine Cocaine Screen U Marijuana (THC) Screen Drugs of Abuse Note 10/01/20 Range/Units 14:32 WBC (4.5-11.0) K/mm3 RBC (3.65-5.03) M/mm3 Hgb (10.1-14.3) gm/dl Hct (30.3-42.9) % MCV (79-97) fl MCH (28-32) pg MCHC (30-34) % RDW (13.2-15.2) % Plt Count (140-440) K/mm3 Lymph % (Auto) (13.4-35.0) % [place] % (Auto) (0.0-7.3) % Eos % (Auto) (0.0-4.3) % Baso % (Auto) (0.0-1.8) % Lymph # (Auto) (1.2-5.4) K/mm3 [place] # (Auto) (0.0-0.8) K/mm3 Eos # (Auto) (0.0-0.4) K/mm3 Baso # (Auto) (0.0-0.1) K/mm3 Seg Neutrophils % (40.0-70.0) % Seg Neutrophils # (1.8-7.7) K/mm3 D-Dimer (0-234) ng/mlDDU Sodium (137-145) mmol/L Potassium (3.6-5.0) mmol/L Chloride (98-107) mmol/L Carbon Dioxide (22-30) mmol/L Anion Gap mmol/L BUN (7-17) mg/dL Creatinine (0.6-1.2) mg/dL Estimated GFR ml/min BUN/Creatinine Ratio % Glucose (65-100) mg/dL Lactic Acid 1.10 (0.7-2.0) mmol/L Calcium (8.4-10.2) mg/dL Ferritin (10.0-200.0) ng/mL Total Bilirubin (0.1-1.2) mg/dL AST (5-40) units/L ALT (7-56) units/L Alkaline Phosphatase (35-129) units/L Ammonia (25-60) umol/L Lactate Dehydrogenase (91-180) units/L Total Creatine Kinase (30-135) units/L C-Reactive Protein (0.00-1.30) mg/dL Total Protein (6.3-8.2) g/dL Albumin (3.9-5) g/dL Albumin/Globulin Ratio % TSH (0.270-4.200) mlU/mL Urine Color (Yellow) Urine Turbidity (Clear) Urine pH (5.0-7.0) Ur Specific [place] (1.003-1.030) Urine Protein (Negative) mg/dL Urine Glucose (UA) (Negative) mg/dL Urine Ketones (Negative) mg/dL Urine Blood (Negative) Urine Nitrite (Negative) Urine Bilirubin (Negative) Urine Urobilinogen (<2.0) mg/dL Ur Leukocyte Esterase (Negative) Urine WBC (Auto) (0.0-6.0) /HPF Urine RBC (Auto) (0.0-6.0) /HPF U Epithel Cells (Auto) (0-13.0) /HPF Urine Bacteria (Auto) (Negative) /HPF Urine WBC Clumps /HPF Urine Mucus /HPF Salicylates (2.8-20.0) mg/dL Urine Opiates Screen Urine Methadone Screen Acetaminophen (10.0-30.0) ug/mL Ur Barbiturates Screen Ur Phencyclidine Scrn Ur Amphetamines Screen U Benzodiazepines Scrn Urine Cocaine Screen U Marijuana (THC) Screen Drugs of Abuse Note Laboratory Results - last 24 hr 10/01/20 10/01/20 10/01/20 11:39 11:39 11:39 WBC 3.4 L RBC 2.70 L Hgb 8.5 L Hct 25.5 L MCV 95 MCH 32 MCHC 33 RDW 17.8 H Plt Count 110 L Lymph % (Auto) 11.2 L [place] % (Auto) 10.2 H Eos % (Auto) 0.2 Baso % (Auto) 0.6 Lymph # (Auto) 0.4 L [place] # (Auto) 0.4 Eos # (Auto) 0.0 Baso # (Auto) 0.0 Seg Neutrophils % 77.8 H Seg Neutrophils # 2.7 D-Dimer Sodium 135 L Potassium 4.8 Chloride 97.4 L Carbon Dioxide 28 Anion Gap 14 BUN 34 H Creatinine 4.9 H Estimated GFR 10 BUN/Creatinine Ratio 7 Glucose 87 Lactic Acid 0.70 Calcium 8.1 L Ferritin Total Bilirubin 0.50 AST 26 ALT 9 Alkaline Phosphatase 50 Ammonia Lactate Dehydrogenase Total Creatine Kinase 54 C-Reactive Protein Total Protein 5.9 L Albumin 2.6 L Albumin/Globulin Ratio 0.8 TSH Urine Color Urine Turbidity Urine pH Ur Specific [place] Urine Protein Urine Glucose (UA) Urine Ketones Urine Blood Urine Nitrite Urine Bilirubin Urine Urobilinogen Ur Leukocyte Esterase Urine WBC (Auto) Urine RBC (Auto) U Epithel Cells (Auto) Urine Bacteria (Auto) Urine WBC Clumps Urine Mucus Salicylates Urine Opiates Screen Urine Methadone Screen Acetaminophen Ur Barbiturates Screen Ur Phencyclidine Scrn Ur Amphetamines Screen U Benzodiazepines Scrn Urine Cocaine Screen U Marijuana (THC) Screen Drugs of Abuse Note 10/01/20 10/01/20 10/01/20 11:39 11:39 11:39 WBC RBC Hgb Hct MCV MCH MCHC RDW Plt Count Lymph % (Auto) [place] % (Auto) Eos % (Auto) Baso % (Auto) Lymph # (Auto) [place] # (Auto) Eos # (Auto) Baso # (Auto) Seg Neutrophils % Seg Neutrophils # D-Dimer Sodium Potassium Chloride Carbon Dioxide Anion Gap BUN Creatinine Estimated GFR BUN/Creatinine Ratio Glucose Lactic Acid Calcium Ferritin Total Bilirubin AST ALT Alkaline Phosphatase Ammonia 20.0 L Lactate Dehydrogenase Total Creatine Kinase C-Reactive Protein Total Protein Albumin Albumin/Globulin Ratio TSH 6.100 H Urine Color Urine Turbidity Urine pH Ur Specific [place] Urine Protein Urine Glucose (UA) Urine Ketones Urine Blood Urine Nitrite Urine Bilirubin Urine Urobilinogen Ur Leukocyte Esterase Urine WBC (Auto) Urine RBC (Auto) U Epithel Cells (Auto) Urine Bacteria (Auto) Urine WBC Clumps Urine Mucus Salicylates < 0.3 L Urine Opiates Screen Urine Methadone Screen Acetaminophen Ur Barbiturates Screen Ur Phencyclidine Scrn Ur Amphetamines Screen U Benzodiazepines Scrn Urine Cocaine Screen U Marijuana (THC) Screen Drugs of Abuse Note 10/01/20 10/01/20 10/01/20 11:39 13:15 13:15 WBC RBC Hgb Hct MCV MCH MCHC RDW Plt Count Lymph % (Auto) [place] % (Auto) Eos % (Auto) Baso % (Auto) Lymph # (Auto) [place] # (Auto) Eos # (Auto) Baso # (Auto) Seg Neutrophils % Seg Neutrophils # D-Dimer Sodium Potassium Chloride Carbon Dioxide Anion Gap BUN Creatinine Estimated GFR BUN/Creatinine Ratio Glucose Lactic Acid Calcium Ferritin Total Bilirubin AST ALT Alkaline Phosphatase Ammonia Lactate Dehydrogenase Total Creatine Kinase C-Reactive Protein Total Protein Albumin Albumin/Globulin Ratio TSH Urine Color [place] Urine Turbidity Cloudy Urine pH 7.0 Ur Specific [place] 1.012 Urine Protein >500 Urine Glucose (UA) Neg Urine Ketones Neg Urine Blood Sm Urine Nitrite Neg Urine Bilirubin Neg Urine Urobilinogen < 2.0 Ur Leukocyte Esterase Lg Urine WBC (Auto) > 182.0 H Urine RBC (Auto) 18.0 U Epithel Cells (Auto) 4.0 Urine Bacteria (Auto) 1+ Urine WBC Clumps 2+ Urine Mucus Few Salicylates Urine Opiates Screen Negative Urine Methadone Screen Negative Acetaminophen 5.0 L Ur Barbiturates Screen Negative Ur Phencyclidine Scrn Negative Ur Amphetamines Screen Negative U Benzodiazepines Scrn Negative Urine Cocaine Screen Negative U Marijuana (THC) Screen Negative Drugs of Abuse Note Disclamer 10/01/20 10/01/20 10/01/20 14:32 14:32 14:32 WBC RBC Hgb Hct MCV MCH MCHC RDW Plt Count Lymph % (Auto) [place] % (Auto) Eos % (Auto) Baso % (Auto) Lymph # (Auto) [place] # (Auto) Eos # (Auto) Baso # (Auto) Seg Neutrophils % Seg Neutrophils # D-Dimer 1617.54 H Sodium Potassium Chloride Carbon Dioxide Anion Gap BUN Creatinine Estimated GFR BUN/Creatinine Ratio Glucose 89 Lactic Acid Calcium Ferritin 1996.0 H Total Bilirubin AST ALT Alkaline Phosphatase Ammonia Lactate Dehydrogenase 220 H Total Creatine Kinase C-Reactive Protein 4.00 H Total Protein Albumin Albumin/Globulin Ratio TSH Urine Color Urine Turbidity Urine pH Ur Specific [place] Urine Protein Urine Glucose (UA) Urine Ketones Urine Blood Urine Nitrite Urine Bilirubin Urine Urobilinogen Ur Leukocyte Esterase Urine WBC (Auto) Urine RBC (Auto) U Epithel Cells (Auto) Urine Bacteria (Auto) Urine WBC Clumps Urine Mucus Salicylates Urine Opiates Screen Urine Methadone Screen Acetaminophen Ur Barbiturates Screen Ur Phencyclidine Scrn Ur Amphetamines Screen U Benzodiazepines Scrn Urine Cocaine Screen U Marijuana (THC) Screen Drugs of Abuse Note 10/01/20 14:32 WBC RBC Hgb Hct MCV MCH MCHC RDW Plt Count Lymph % (Auto) [place] % (Auto) Eos % (Auto) Baso % (Auto) Lymph # (Auto) [place] # (Auto) Eos # (Auto) Baso # (Auto) Seg Neutrophils % Seg Neutrophils # D-Dimer Sodium Potassium Chloride Carbon Dioxide Anion Gap BUN Creatinine Estimated GFR BUN/Creatinine Ratio Glucose Lactic Acid 1.10 Calcium Ferritin Total Bilirubin AST ALT Alkaline Phosphatase Ammonia Lactate Dehydrogenase Total Creatine Kinase C-Reactive Protein Total Protein Albumin Albumin/Globulin Ratio TSH Urine Color Urine Turbidity Urine pH Ur Specific [place] Urine Protein Urine Glucose (UA) Urine Ketones Urine Blood Urine Nitrite Urine Bilirubin Urine Urobilinogen Ur Leukocyte Esterase Urine WBC (Auto) Urine RBC (Auto) U Epithel Cells (Auto) Urine Bacteria (Auto) Urine WBC Clumps Urine Mucus Salicylates Urine Opiates Screen Urine Methadone Screen Acetaminophen Ur Barbiturates Screen Ur Phencyclidine Scrn Ur Amphetamines Screen U Benzodiazepines Scrn Urine Cocaine Screen U Marijuana (THC) Screen Drugs of Abuse Note - EKG Data -: EKG Interpreted by Me EKG shows normal: sinus rhythm, axis Rate: normal 10/01/20 13:58 EKG obtained [address] Normal sinus rhythm rate 80 bpm normal axis prolonged QTC no ST elevation - Radiology Data Radiology results: report reviewed, image reviewed CT HEAD WITHOUT CONTRAST HISTORY: Altered Mental Status. TECHNIQUE: Axial imaging performed from the skull apex through the skull base without the use of contrast. All CT scans at this location are performed using CT dose reduction for ALARA by means of automated exposure control. COMPARISON: 09/11/2020 FINDINGS: Parenchyma: No acute intracranial hemorrhage or parenchymal abnormality.. Mild hypoattenuation throughout the white matter is noted and consistent with chronic microvascular ischemic disease. Ventricles: There is mild diffuse brain atrophy with commensurate ventricular enlargement which is likely age appropriate. Soft tissues: Soft tissues including the orbits appear normal. Bones: No acute osseous abnormality. Sinuses: Sinuses and mastoid air cells are clear. IMPRESSION: No acute abnormality. No change since 09/11/2020. CHEST 1 VIEW 10/01/2020 11:34 AM INDICATION / CLINICAL INFORMATION: Altered Mental Status. COMPARISON: 09/11/2020 FINDINGS: SUPPORT DEVICES: None. HEART / MEDIASTINUM: No significant abnormality. LUNGS / PLEURA: Diffuse bilateral pulmonary opacities have increased since prior examination. Elevation the right hemidiaphragm. No pneumothorax. ADDITIONAL FINDINGS: No significant additional findings. IMPRESSION: 1. Elevation right hemidiaphragm with diffuse bilateral pulmonary opacities. Opacities have increased since prior examination - Medical Decision Making 1. Acute encephalopathy: Multifactorial. Suspect evolving progressing dementia as the largest factor in patient's mental presentation and awareness. Patient has had several hospitalizations regarding acute encephalopathy. I suspect infection is exacerbating baseline cognitive dysfunction. Patient has evidence of both urinary tract infection in multifocal pneumonia. Postictal state is also a consideration. Patient did receive antiepileptics. Nurse informed me that patient became slightly more alert and agitated after receiving naloxone. P olypharmacy is likely also a contributing factor. Will obtain Depakote level to rule out toxicity. 2. Multifocal pneumonia: Considering pandemic must rule out COVID-19 infection. Appropriate precautions have been taken. Considering patient's multiple recent hospitalizations, will cover nosocomial organisms with broad-spectrum antibiotics. 3. UTI: antibiotics ordered 4. Possible seizure: Patient received IV Keppra in the emergency department. 5. Elevated TSH: I do not suspect myxedema coma. Patient will need further nonemergent work-up. Critical Care Time: Yes Critical care time in (mins) excluding proc time.: 40 Critical care attestation.: If time is entered above; I have spent that time in minutes in the direct care of this critically ill patient, excluding procedure time. 40 minutes of critical care time excluding procedures were used in the care of the patient. I obtained history from EMS at the bedside. I discussed treatment plan with the nursing team members. I reviewed electronic record. I was initially concerned for imminent airway compromise. Also concern for possible CVA or intracranial hemorrhage. Patient required multiple interventions and reassessments. ED Disposition Clinical Impression: Encephalopathy, End-stage renal disease on hemodialysis, Multifocal pneumonia, Suspected COVID-19 virus infection, UTI (urinary tract infection), Elevated TSH Disposition: OP ADMIT IP TO THIS HOSP Is pt being admited?: Yes Does the pt Need Aspirin: No Condition: Stable Instructions: Bacterial Pneumonia (ED)
[2020-10-01] MEDS ORDERED: levETIRAcetam 1000 MG/NS 0.75% 1,000 MG/100 ML BAG IV ONE (11:22)
--- NOTE | 2020-10-01 11:34 | Cat Scan Report ---
CT HEAD WITHOUT CONTRAST HISTORY: Altered Mental Status. TECHNIQUE: Axial imaging performed from the skull apex through the skull base without the use of con trast. All CT scans at this location are performed using CT dose reduction for ALARA by means of aut omated exposure control. COMPARISON: 09/11/2020 FINDINGS: Parenchyma: No acute intracranial hemorrhage or parenchymal abnormality.. Mild hypoattenuation thro ughout the white matter is noted and consistent with chronic microvascular ischemic disease. Ventricles: There is mild diffuse brain atrophy with commensurate ventricular enlargement which is l ikely age appropriate. Soft tissues: Soft tissues including the orbits appear normal. Bones: No acute osseous abnormality. Sinuses: Sinuses and mastoid air cells are clear. IMPRESSION: No acute abnormality. No change since 09/11/2020. Signer Name: Hero Cazares Jr, MD Signed: 10/01/2020 11:29 AM Workstation Name: [id number]
[2020-10-01 12:07] LABS: Basophils % (Auto) 0.6 % (0.0-1.8); Eosinophils % (Auto) 0.2 % (0.0-4.3); Hematocrit 25.5 % (30.3-42.9); Hemoglobin 8.5 gm/dl (10.1-14.3); Lymphocytes # (Auto) 0.4 K/mm3 (1.2-5.4); Lymphocytes % (Auto) 11.2 % (13.4-35.0); Mean Corpuscular HGB Conc 33 % (30-34); Mean Corpuscular Volume 95 fl (79-97); Monocytes # (Auto) 0.4 K/mm3 (0.0-0.8); Monocytes % (Auto) 10.2 % (0.0-7.3); Platelet Count 110 K/mm3 (140-440); Red Cell Distribution Width 17.8 % (13.2-15.2)
[2020-10-01 12:25] LABS: Albumin 2.6 g/dL (3.9-5); Calcium 8.1 mg/dL (8.4-10.2)
--- NOTE | 2020-10-01 12:43 | XRay Report ---
CHEST 1 VIEW 10/01/2020 11:34 AM INDICATION / CLINICAL INFORMATION: Altered Mental Status. COMPARISON: 09/11/2020 FINDINGS: SUPPORT DEVICES: None. HEART / MEDIASTINUM: No significant abnormality. LUNGS / PLEURA: Diffuse bilateral pulmonary opacities have increased since prior examination. Elevati on the right hemidiaphragm. No pneumothorax. ADDITIONAL FINDINGS: No significant additional findings. IMPRESSION: 1. Elevation right hemidiaphragm with diffuse bilateral pulmonary opacities. Opacities have increased since prior examination. Signer Name: Landon Guzman MD Signed: 10/01/2020 12:39 PM Workstation Name: [id number]
[2020-10-01 13:37] LABS: Amphetamine Screen,Urine Negative; Bacteria,Urine 1+ /HPF (Negative); Benzodiazepines Screen,Urine Negative; Bilirubin,Urine NEG (Negative); Blood,Urine SM (Negative); Cannabinoid Screen,Urine Negative; Cocaine Screen,Urine Negative; Color,Urine Amber (Yellow); Methadone Screen,Urine Negative; Mucus,Urine FEW /HPF; Opiate Screen,Urine Negative; Urobilinogen,Urine < 2.0 mg/dL (<2.0)
[2020-10-01 13:38] LABS: Protein,Urine >500 mg/dL (Negative); WBC,Urine > 182.0 /HPF (0.0-6.0)
[2020-10-01] MEDS ORDERED: CEFEPIME/NS 2 GM/100 ML 2 GM/100 ML BAG IV ONE (13:39)
[2020-10-01] MEDS ORDERED: VANCOMYCIN 1,000 MG in SODIUM CHLORIDE 0.9% 500 ML 500 ML IV ONE (13:39)
[2020-10-01] MEDS ORDERED: VANCOMYCIN PHARMACY TO DOSE IV SCH (14:00)
[2020-10-01] MEDS ORDERED: VANCOMYCIN/NS 1 GM/250 ML 1 GM/250 ML BAG IV ONE (15:00)
--- NOTE | 2020-10-01 15:46 | History and Physical Report ---
History of Present Illness Chief complaint: She is having problems breathing History of present illness: 80 YO Female with HTN, DM, Seizure Disorder, HLD, Diastolic CHF, ESRD on HD(M,W,F), Vascular Dementia, Cerebral Atherosclerosis presents to ED for evaluation. Patient is confused and lethargic and is unable to provide history. Patient history provided by EMS staff, ED staff as well as patient family. As per family- the patient was discharged from [facility] yesterday. As per family, the patient was found to have increased confusion amd shortness of breath upon awakening from sleep this morning. EMS was notified and upon arrival the patient was found to be in distress and was subsequently transported to [facility] for further care and evaluation of the aforementioned symptoms. The patient was seen and evaluated in the emergency department. All lab and imaging studies reviewed. The patient was found to have end-stage renal disease, metabolic encephalopathy, urinary tract infection, accelerated hypertension, as well as evidence of pneumonia on chest x-ray. The patient was initiated on p neumonia protocol as well as coronavirus protocol and admitted to medical floor. Nephrology team consulted in ED. No further history is obtainable. Patient is confused and lethargic the time of my evaluation but has a positive gag reflex and is able to protect her airway without difficulty. Prior admission on 09/11/2020 reviewed. All medication listed at time of admission has been reconciled. Advanced care planning conducted in ED. Past History Past Medical History: diabetes, ESRD, heart failure, hypertension, hyperlipidemia, seizures Past Surgical History: Other (Dialysis access) Social history: single. denies: smoking, alcohol abuse, prescription drug abuse Family history: diabetes, hypertension Medications and Allergies Allergies Allergy/AdvReac Type Severity Reaction Status Date / Time No Known Allergies Allergy Unverified 02/02/18 15:43 Home Medications Medication Instructions Recorded Confirmed Last Taken Type Aspirin 81 mg PO DAILY 08/13/18 09/12/20 08/11/18 History Acetaminophen [Acetaminophen TAB] 650 mg PO Q4H PRN tablet 09/02/18 09/12/20 Unknown Rx Lispro Insulin [HumaLOG] 0 unit SUB-Q ACHS units 09/02/18 09/12/20 Unknown Rx ISOSORBIDE MONOnitrate [Imdur ER] 60 mg PO DAILY tablet 10/15/18 09/12/20 Unknown Rx carvediloL [Coreg] 12.5 mg PO BID tablet 10/15/18 09/12/20 Unknown Rx Losartan [Cozaar] 50 mg PO QDAY #30 tablet 11/01/18 09/12/20 Unknown Rx Lacosamide [Vimpat] 50 mg PO Q12HR #60 tablet 08/22/19 09/12/20 Unknown Rx Linagliptin [Tradjenta] 5 mg PO QDDIAB #30 tablet 08/22/19 09/12/20 Unknown Rx levETIRAcetam [Keppra TAB] 500 mg PO BID #60 tablet 08/22/19 09/12/20 Unknown Rx Famotidine [Pepcid] 20 mg PO DAILY #30 tablet 08/07/20 09/12/20 Unknown Rx NIFEdipine XL [Procardia Xl] 60 mg PO Q12HR #60 tablet 08/07/20 09/12/20 Unknown Rx hydrALAZINE [Apresoline TAB] 100 mg PO Q8HR #90 tab 08/07/20 09/12/20 Unknown Rx megestroL [Megestrol] 400 mg PO QDAY 30 Days #1 oral.liqd 08/07/20 09/12/20 Unknown Rx Active Meds: Active Medications Vancomycin HCl (Vancomycin/Ns 1 Gm/250 Ml) 1 gm in 250 mls @ 166.667 mls/hr IV ONCE ONE Stop: 10/01/20 16:29 Review of Systems ROS unobtainable: due to mental status Exam - Constitutional Vitals: Temp Pulse Resp BP Pulse Ox 99.7 F H 84 17 190/66 95 10/01/20 10:57 10/01/20 10:57 10/01/20 10:57 10/01/20 10:57 10/01/20 10:57 General appearance: Present: mild distress, cachectic - EENT Eyes: Present: PERRL ENT: hearing intact, clear oral mucosa - Neck Neck: Present: supple, normal ROM - Respiratory Respiratory effort: labored Respiratory: bilateral: CTA, rhonchi - Cardiovascular Heart Sounds: Present: S1 & S2. Absent: rub, click - Extremities Extremities: pulses symmetrical, No edema Peripheral Pulses: within normal limits - Abdominal General gastrointestinal: Present: soft, non-tender, non-distended, normal bowel sounds Female genitourinary: Present: normal - Integumentary Integumentary: Present: dry, clammy - Musculoskeletal Musculoskeletal: generalized weakness - Psychiatric Psychiatric: no appropriate mood/affect, no intact judgment & insight, no memory intact - Neurologic Neurologic: CNII-XII intact, moves all extremities, no gait normal Results - Labs CBC & Chem 7: 10/01/20 11:39 10/01/20 16:16 Labs: Abnormal lab results 10/01/20 10/01/20 10/01/20 Range/Units 11:39 11:39 11:39 WBC 3.4 L (4.5-11.0) K/mm3 RBC 2.70 L (3.65-5.03) M/mm3 Hgb 8.5 L (10.1-14.3) gm/dl Hct 25.5 L (30.3-42.9) % RDW 17.8 H (13.2-15.2) % Plt Count 110 L (140-440) K/mm3 Lymph % (Auto) 11.2 L (13.4-35.0) % [place] % (Auto) 10.2 H (0.0-7.3) % Lymph # (Auto) 0.4 L (1.2-5.4) K/mm3 Seg Neutrophils % 77.8 H (40.0-70.0) % D-Dimer (0-234) ng/mlDDU Sodium 135 L (137-145) mmol/L Chloride 97.4 L (98-107) mmol/L BUN 34 H (7-17) mg/dL Creatinine 4.9 H (0.6-1.2) mg/dL Calcium 8.1 L (8.4-10.2) mg/dL Ferritin (10.0-200.0) ng/mL Ammonia 20.0 L (25-60) umol/L Lactate Dehydrogenase (91-180) units/L C-Reactive Protein (0.00-1.30) mg/dL Total Protein 5.9 L (6.3-8.2) g/dL Albumin 2.6 L (3.9-5) g/dL TSH (0.270-4.200) mlU/mL Urine WBC (Auto) (0.0-6.0) /HPF Salicylates (2.8-20.0) mg/dL Acetaminophen (10.0-30.0) ug/mL 10/01/20 10/01/20 10/01/20 Range/Units 11:39 11:39 11:39 WBC (4.5-11.0) K/mm3 RBC (3.65-5.03) M/mm3 Hgb (10.1-14.3) gm/dl Hct (30.3-42.9) % RDW (13.2-15.2) % Plt Count (140-440) K/mm3 Lymph % (Auto) (13.4-35.0) % [place] % (Auto) (0.0-7.3) % Lymph # (Auto) (1.2-5.4) K/mm3 Seg Neutrophils % (40.0-70.0) % D-Dimer (0-234) ng/mlDDU Sodium (137-145) mmol/L Chloride (98-107) mmol/L BUN (7-17) mg/dL Creatinine (0.6-1.2) mg/dL Calcium (8.4-10.2) mg/dL Ferritin (10.0-200.0) ng/mL Ammonia (25-60) umol/L Lactate Dehydrogenase (91-180) units/L C-Reactive Protein (0.00-1.30) mg/dL Total Protein (6.3-8.2) g/dL Albumin (3.9-5) g/dL TSH 6.100 H (0.270-4.200) mlU/mL Urine WBC (Auto) (0.0-6.0) /HPF Salicylates < 0.3 L (2.8-20.0) mg/dL Acetaminophen 5.0 L (10.0-30.0) ug/mL 10/01/20 10/01/20 10/01/20 Range/Units 13:15 14:32 14:32 WBC (4.5-11.0) K/mm3 RBC (3.65-5.03) M/mm3 Hgb (10.1-14.3) gm/dl Hct (30.3-42.9) % RDW (13.2-15.2) % Plt Count (140-440) K/mm3 Lymph % (Auto) (13.4-35.0) % [place] % (Auto) (0.0-7.3) % Lymph # (Auto) (1.2-5.4) K/mm3 Seg Neutrophils % (40.0-70.0) % D-Dimer 1617.54 H (0-234) ng/mlDDU Sodium (137-145) mmol/L Chloride (98-107) mmol/L BUN (7-17) mg/dL Creatinine (0.6-1.2) mg/dL Calcium (8.4-10.2) mg/dL Ferritin (10.0-200.0) ng/mL Ammonia (25-60) umol/L Lactate Dehydrogenase 220 H (91-180) units/L C-Reactive Protein 4.00 H (0.00-1.30) mg/dL Total Protein (6.3-8.2) g/dL Albumin (3.9-5) g/dL TSH (0.270-4.200) mlU/mL Urine WBC (Auto) > 182.0 H (0.0-6.0) /HPF Salicylates (2.8-20.0) mg/dL Acetaminophen (10.0-30.0) ug/mL 10/01/20 Range/Units 14:32 WBC (4.5-11.0) K/mm3 RBC (3.65-5.03) M/mm3 Hgb (10.1-14.3) gm/dl Hct (30.3-42.9) % RDW (13.2-15.2) % Plt Count (140-440) K/mm3 Lymph % (Auto) (13.4-35.0) % [place] % (Auto) (0.0-7.3) % Lymph # (Auto) (1.2-5.4) K/mm3 Seg Neutrophils % (40.0-70.0) % D-Dimer (0-234) ng/mlDDU Sodium (137-145) mmol/L Chloride (98-107) mmol/L BUN (7-17) mg/dL Creatinine (0.6-1.2) mg/dL Calcium (8.4-10.2) mg/dL Ferritin 1996.0 H (10.0-200.0) ng/mL Ammonia (25-60) umol/L Lactate Dehydrogenase (91-180) units/L C-Reactive Protein (0.00-1.30) mg/dL Total Protein (6.3-8.2) g/dL Albumin (3.9-5) g/dL TSH (0.270-4.200) mlU/mL Urine WBC (Auto) (0.0-6.0) /HPF Salicylates (2.8-20.0) mg/dL Acetaminophen (10.0-30.0) ug/mL Assessment and Plan - Patient Problems (1) Multifocal pneumonia Current Visit: Yes Status: Acute Plan to address problem: Pneumonia protocol: Chest x-ray, CBC, CMP, supplemental oxygen, pulse oximetry, nebulizer therapy, blood culture. (2) Suspected COVID-19 virus infection Current Visit: Yes Status: Acute Plan to address problem: Coronavirus protocol: Contact precautions, isolation precautions, IV antibiotic therapy, IV steroid therapy, prone positioning while in bed, pulmonary toilet. (3) End-stage renal disease on hemodialysis Current Visit: Yes Status: Acute Plan to address problem: Nephrology team consulted in ED, dialysis as per renal team, strict I's/O, avoid nephrotoxic agents. (4) Vascular dementia Current Visit: Yes Status: Acute Qualifiers: Dementia behavioral disturbance: without behavioral disturbance Qualified Code(s): F01.50 - Vascular dementia without behavioral disturbance Plan to address problem: Coronavirus protocol: Supportive care, verbal prompting, verbal redirection, benzodiazepine therapy as clinically indicated. (5) Encephalopathy Current Visit: Yes Status: Acute Plan to address problem: Metabolic encephalopathy: CT head, neuro check, seizure precautions, aspiration precautions, fall precautions (6) Urinary tract infection Current Visit: Yes Status: Chronic Qualifiers: Encounter type: initial encounter Plan to address problem: CBC, urinalysis, IV antibiotic therapy, (7) Accelerated hypertension Current Visit: No Status: Acute Plan to address problem: Monitor blood pressure every shift, continue medical management. (8) DVT prophylaxis Current Visit: Yes Status: Acute Plan to address problem: SCD to bilateral lower extremities while in bed, prophylactic anticoagulation. (9) Advance care planning Current Visit: Yes Status: Acute Plan to address problem: Disease education conducted, patient is full code, care plan discussed, prognosis discussed, patient family knowledge understanding and agreement with care plan, +30 minutes.
[2020-10-01] MEDS ORDERED: ALBUTEROL 2.5 MG/3 ML NEBU IH PRN (15:50)
[2020-10-01] MEDS ORDERED: ONDANSETRON 4 MG/2 ML INJ IV PRN (15:50)
[2020-10-01] MEDS ORDERED: ACETAMINOPHEN 325 MG TAB PO PRN (15:52)
[2020-10-01] MEDS ORDERED: NON-FORMULARY EACH (Aspirin Tablet) PO SCH (15:52)
[2020-10-01] MEDS: INSULIN LISPRO 100 UNIT/ML VIAL 3 mL SUB-Q SCH ×2 (16:36→22:53)
[2020-10-01 16:50] LABS: C-Reactive Protein 4.2 mg/dL (0.00-1.30)
[2020-10-01] MEDS: methylPREDNISolone Sod Succinate 40 MG/1 ML INJ IV SCH (18:17)
[2020-10-01] MEDS ORDERED: hydrALAZINE 20 MG/1 ML INJ IV PRN (22:31)
[2020-10-01] MEDS: carvediloL 12.5 MG TAB PO SCH (22:52)
[2020-10-01] MEDS: hydrALAZINE 100 MG TAB PO SCH (22:52)
[2020-10-01] MEDS: LACOSAMIDE 50 MG TAB PO SCH (22:53)
[2020-10-01] MEDS: NIFEdipine XL 60 MG TAB PO SCH (22:53)
[2020-10-01] MEDS: levETIRAcetam 500 MG TAB PO SCH (22:53)
[2020-10-01] MEDS: HEPARIN 5,000 UNIT/1 ML VIAL SUB-Q SCH (22:58)
[2020-10-02] MEDS: methylPREDNISolone Sod Succinate 40 MG/1 ML INJ IV SCH ×3 (05:55→17:22)
[2020-10-02 06:43] LABS: Basophils % (Auto) 0.9 % (0.0-1.8); Hematocrit 29.9 % (30.3-42.9); Lymphocytes # (Auto) 0.2 K/mm3 (1.2-5.4); Lymphocytes % (Auto) 10.1 % (13.4-35.0); Mean Corpuscular HGB Conc 34 % (30-34); Mean Corpuscular Volume 94 fl (79-97); Monocytes # (Auto) 0.1 K/mm3 (0.0-0.8); Monocytes % (Auto) 6.2 % (0.0-7.3); Platelet Count 113 K/mm3 (140-440); Red Blood Count 3.18 M/mm3 (3.65-5.03); Red Cell Distribution Width 18.1 % (13.2-15.2)
[2020-10-02 06:57] LABS: Calcium 8.4 mg/dL (8.4-10.2)
[2020-10-02] MEDS: hydrALAZINE 100 MG TAB PO SCH ×3 (08:47→23:11)
[2020-10-02] MEDS: ASPIRIN 81 MG TAB CHEW PO SCH ×2 (08:47→09:48)
[2020-10-02] MEDS: INSULIN LISPRO 100 UNIT/ML VIAL 3 mL SUB-Q SCH ×4 (08:48→22:46)
--- NOTE | 2020-10-02 09:18 | Consultation ---
History of Present Illness - Reason for Consult Consult date: 10/02/20 end stage renal disease Requesting physician: APRIL QUICK - History of Present Illness 80 YO Female with HTN, DM, Seizure Disorder, HLD, Diastolic CHF, ESRD on HD(M,W,F), Vascular Dementia, Cerebral Atherosclerosis presents to ED for evaluation. Patient is confused and lethargic and is unable to provide history. Patient history provided by EMS staff, ED staff as well as patient family. As per family- the patient was discharged from [facility] day before . As per family, the patient was found to have increased confusion amd shortness of breath upon awakening from sleep this morning. EMS was notified and upon arrival the patient was found to be in distress and was subsequently transported to [facility] for further care and evaluation of the aforementioned symptoms. The patient was seen and evaluated in the emergency department. All lab and imaging studies reviewed. The patient was found to have end-stage renal disease, metabolic encephalopathy, urinary tract infection, accelerated hypertension, as well as evidence of pneumonia on chest x-ray. The patient was initiated on pneumonia protocol as well as coronavirus protocol and admitted to medical floor. Nephrology team consulted in ED. No further history is obtainable. Patient is confused and lethargic the time of my evaluation but has a positive gag reflex and is able to protect her airway without difficulty. Prior admission on 09/11/2020 reviewed. All medication listed at time of admission has been reconciled. Advanced care planning conducted in ED. Patient is somewhat confused. Unable to get any history from her. Information obtained from patient's current chart. It appears that patient undergoes dialysis under the care of Dr. Bey at [facility] clinic Past History Past Medical History: diabetes, ESRD, heart failure, hypertension, hyperlipide jessica, seizures Past Surgical History: Other (Dialysis access) Social history: single. denies: smoking, alcohol abuse, prescription drug abuse Family history: diabetes, hypertension Medications and Allergies Allergies Allergy/AdvReac Type Severity Reaction Status Date / Time No Known Allergies Allergy Unverified 02/02/18 15:43 Home Medications Medication Instructions Recorded Confirmed Last Taken Type Aspirin 81 mg PO DAILY 08/13/18 09/12/20 08/11/18 History Acetaminophen [Acetaminophen TAB] 650 mg PO Q4H PRN tablet 09/02/18 09/12/20 Unknown Rx Lispro Insulin [HumaLOG] 0 unit SUB-Q ACHS units 09/02/18 09/12/20 Unknown Rx ISOSORBIDE MONOnitrate [Imdur ER] 60 mg PO DAILY tablet 10/15/18 09/12/20 Unknown Rx carvediloL [Coreg] 12.5 mg PO BID tablet 10/15/18 09/12/20 Unknown Rx Losartan [Cozaar] 50 mg PO QDAY #30 tablet 11/01/18 09/12/20 Unknown Rx Lacosamide [Vimpat] 50 mg PO Q12HR #60 tablet 08/22/19 09/12/20 Unknown Rx Linagliptin [Tradjenta] 5 mg PO QDDIAB #30 tablet 08/22/19 09/12/20 Unknown Rx levETIRAcetam [Keppra TAB] 500 mg PO BID #60 tablet 08/22/19 09/12/20 Unknown Rx Famotidine [Pepcid] 20 mg PO DAILY #30 tablet 08/07/20 09/12/20 Unknown Rx NIFEdipine XL [Procardia Xl] 60 mg PO Q12HR #60 tablet 08/07/20 09/12/20 Unknown Rx hydrALAZINE [Apresoline TAB] 100 mg PO Q8HR #90 tab 08/07/20 09/12/20 Unknown Rx megestroL [Megestrol] 400 mg PO QDAY 30 Days #1 oral.liqd 08/07/20 09/12/20 Unk nown Rx Active Meds: Active Medications Acetaminophen (Acetaminophen 325 Mg Tab) 650 mg PO Q4H PRN PRN Reason: Pain MILD(1-3)/Fever >100.5/VERDE Albuterol (Albuterol 2.5 Mg/3 Ml Nebu) 2.5 mg IH Q4HRT PRN PRN Reason: Shortness Of Breath Aspirin (Aspirin 81 Mg Tab Chew) 81 mg PO QDAY [facility] Last Admin: 10/02/20 08:47 Dose: Not Given Documented by: Carvedilol (Carvedilol 12.5 Mg Tab) 12.5 mg PO BID [facility] Last Admin: 10/01/20 22:52 Dose: Not Given Documented by: Dextrose (Dextrose 50% In Water (25gm) 50 Ml Syringe) 50 ml IV Q30MIN PRN; Protocol PRN Reason: Hypoglycemia Famotidine (Famotidine 20 Mg Tab) 20 mg PO DAILY [facility] Heparin Sodium (Porcine) (Heparin 5,000 Unit/1 Ml Vial) 5,000 unit SUB-Q Q12HR [facility] Last Admin: 10/01/20 22:58 Dose: 5,000 unit Documented by: Hydralazine HCl (Hydralazine 100 Mg Tab) 100 mg PO Q8HR [facility] Last Admin: 10/02/20 08:47 Dose: Not Given Documented by: Hydralazine HCl (Hydralazine 20 Mg/1 Ml Inj) 5 mg IV Q4H PRN PRN Reason: Blood Pressure Last Admin: 10/01/20 22:57 Dose: 5 mg Documented by: Cefepime HCl (Cefepime/Ns 1 Gm/100 Ml) 1 gm in 100 mls @ 200 mls/hr IV QPM [facility] Insulin Human Lispro (Insulin Lispro 100 Unit/Ml Vial 3 Ml) 0 unit SUB-Q ACHS [facility]; Protocol Last Admin: 10/02/20 08:48 Dose: Not Given Documented by: Isosorbide Mononitrate (Isosorbide Mononitrate Er 60 Mg Tab) 60 mg PO DAILY [facility] Lacosamide (Lacosamide 50 Mg Tab) 50 mg PO Q12HR [facility] Last Admin: 10/01/20 22:53 Dose: Not Given Documented by: Levetiracetam (Levetiracetam 500 Mg Tab) 500 mg PO BID [facility] Last Admin: 10/01/20 22:53 Dose: Not Given Documented by: Losartan Potassium (Losartan 50 Mg Tab) 50 mg PO QDAY [facility] Megestrol Acetate (Megestrol 400 Mg/10 Ml Oral Liqd) 400 mg PO QDAY [facility] Methylprednisolone Sodium Succinate (Methylprednisolone Sod Succinate 40 Mg/1 Ml Inj) 40 mg IV Q8H [facility] Last Admin: 10/02/20 05:55 Dose: 40 mg Documented by: Nifedipine (Nifedipine Xl 60 Mg Tab) 60 mg PO Q12HR [facility] Last Admin: 10/01/20 22:53 Dose: Not Given Documented by: Ondansetron HCl (Ondansetron 4 Mg/2 Ml Inj) 4 mg IV Q8H PRN PRN Reason: Nausea And Vomiting Sodium Chloride (Sodium Chloride 0.9% 10 Ml Flush Syringe) 10 ml IV BID [facility] Last Admin: 10/01/20 22:58 Dose: 10 ml Documented by: Sodium Chloride (Sodium Chloride 0.9% 10 Ml Flush Syringe) 10 ml IV PRN PRN PRN Reason: LINE FLUSH Review of Systems ROS unobtainable: due to mental status Exam - Vital Signs Vital signs: Vital Signs Temp 99.7 F H 10/01/20 10:30 - General Appearance General appearance: well-developed, well-nourished, appears stated age EENT: PERRL, mucous membranes moist Neck: Present: neck supple, trachea midline. Absent: JVD/HJR, Masses Respiratory: Ronchi (Few scattered rhonchi) Heart: regular, normal heart rate Gastrointestinal: Present: normal, normoactive bowel sounds Integumentary: other (AV graft left upper arm. Good bruit and thrill. Left forearm in a cast) Results - Lab Results 10/02/20 06:05 10/02/20 06:05 Most recent lab results Calcium 8.4 mg/dL (8.4-10.2) 10/02/20 06:05 Assessment and Plan Impression * End-stage renal disease on maintenance hemodialysis * Altered mental status * Pneumonia * Covid PUI * Hypertension * Diabetes * Hyperkalemia * Anemia secondary to ESRD Recommendations * Shall schedule patient for hemodialysis treatment for today and keep her on TTS schedule for now * Hopefully her hyperkalemia will be corrected with dialysis * Epogen with dialysis * Binders with meals * Adjust diet and meds for ESRD state * No IV, BP or venipuncture in her access arm * Management of pneumonia as per primary team * Thank you very much for the consultation. Shall follow along with you
[2020-10-02] MEDS ORDERED: SODIUM CHLORIDE 0.9% 100 ML IV PRN (09:19)
[2020-10-02] MEDS: NIFEdipine XL 60 MG TAB PO SCH ×2 (09:47→22:46)
[2020-10-02] MEDS: LOSARTAN 50 MG TAB PO SCH (09:48)
[2020-10-02] MEDS: carvediloL 12.5 MG TAB PO SCH ×2 (09:48→22:45)
[2020-10-02] MEDS: LACOSAMIDE 50 MG TAB PO SCH ×2 (09:48→22:46)
[2020-10-02] MEDS: FAMOTIDINE 20 MG TAB PO SCH (09:48)
[2020-10-02] MEDS: HEPARIN 5,000 UNIT/1 ML VIAL SUB-Q SCH ×2 (09:48→22:46)
[2020-10-02] MEDS: levETIRAcetam 500 MG TAB PO SCH ×2 (09:48→22:46)
[2020-10-02] MEDS: MEGESTROL 400 MG/10 ML ORAL LIQD PO SCH (11:23)
--- NOTE | 2020-10-02 13:04 | Progress Note ---
Assessment and Plan Assessment and plan: 1) Multifocal pneumonia Current Visit: Yes Status: Acute Plan to address problem: Pneumonia protocol: Chest x-ray, CBC, CMP, supplemental oxygen, pulse oximetry, nebulizer therapy, blood culture. (2) Suspected COVID-19 virus infection Current Visit: Yes Status: Acute Plan to address problem: Coronavirus protocol: Contact precautions, isolation precautions, IV antibiotic therapy, IV steroid therapy, prone positioning while in bed, pulmonary toilet. (3) End-stage renal disease on hemodialysis Current Visit: Yes Status: Acute Plan to address problem: Nephrology team consulted in ED, dialysis as per renal team, strict I's/O, avoid nephrotoxic agents. (4) Vascular dementia Current Visit: Yes Status: Acute Qualifiers: Dementia behavioral disturbance: without behavioral disturbance Qualified Code(s): F01.50 - Vascular dementia without behavioral disturbance Plan to address problem: Monitor (5) Encephalopathy Current Visit: Yes Status: Acute Plan to address problem: Metabolic encephalopathy: CT head, neuro check, seizure precautions, aspiration precautions, fall precautions (6) Urinary tract infection Current Visit: Yes Status: Chronic Qualifiers: Encounter type: initial encounter Plan to address problem: CBC, urinalysis, IV antibiotic therapy (7) Accelerated hypertension Current Visit: No Status: Acute Plan to address problem: Monitor blood pressure every shift, continue medical management. (8) DVT prophylaxis Current Visit: Yes Status: Acute Plan to address problem: SCD to bilateral lower extremities while in bed, prophylactic anticoagulation. (9) Advance care planning Current Visit: Yes Status: Acute Plan to address problem: Disease education conducted, patient is full code, care plan discussed, prognosis discussed, patient family knowledge understanding and agreement with care plan, +30 minutes. History Interval history: No acute events noted overnight Hospitalist Physical - Physical exam Narrative exam: VITAL SIGNS: Reviewed. GENERAL: Awake HEAD: No signs of head trauma. EYES: Pupils are equal. Extraocular motions intact. MOUTH: Oropharynx is normal. NECK: No adenopathy, no JVD. CHEST: Chest with diminished breath sounds bilaterally. No wheezes, rales, or rhonchi. CARDIAC: normal S1 and S2, without murmurs, gallops, or rubs. ABDOMEN: Soft, non tender and non distended. No rebound or guarding, and no masses palpated. Bowel Sounds normal. MUSCULOSKELETAL: No edema NEUROLOGIC EXAM: Awake confused. No focal neurologic deficits SKIN: No obvious lesions - Constitutional Vitals: Temp Pulse Resp BP Pulse Ox 97.1 F L 60 18 87/35 95 10/02/20 11:00 10/02/20 11:00 10/02/20 11:00 10/02/20 11:00 10/02/20 11:00 Results - Labs CBC & Chem 7: 10/02/20 06:05 10/02/20 06:05 Labs: Laboratory Last Values WBC 2.4 K/mm3 (4.5-11.0) L 10/02/20 06:05 RBC 3.18 M/mm3 (3.65-5.03) L 10/02/20 06:05 Hgb 10.0 gm/dl (10.1-14.3) L 10/02/20 06:05 Hct 29.9 % (30.3-42.9) L 10/02/20 06:05 MCV 94 fl (79-97) 10/02/20 06:05 MCH 32 pg (28-32) 10/02/20 06:05 MCHC 34 % (30-34) 10/02/20 06:05 RDW 18.1 % (13.2-15.2) H 10/02/20 06:05 Plt Count 113 K/mm3 (140-440) L 10/02/20 06:05 Lymph % (Auto) 10.1 % (13.4-35.0) L 10/02/20 06:05 [place] % (Auto) 6.2 % (0.0-7.3) 10/02/20 06:05 Eos % (Auto) 0.0 % (0.0-4.3) 10/02/20 06:05 Baso % (Auto) 0.9 % (0.0-1.8) 10/02/20 06:05 Lymph # (Auto) 0.2 K/mm3 (1.2-5.4) L 10/02/20 06:05 [place] # (Auto) 0.1 K/mm3 (0.0-0.8) 10/02/20 06:05 Eos # (Auto) 0.0 K/mm3 (0.0-0.4) 10/02/20 06:05 Baso # (Auto) 0.0 K/mm3 (0.0-0.1) 10/02/20 06:05 Seg Neutrophils % 82.8 % (40.0-70.0) H 10/02/20 06:05 Seg Neutrophils # 2.0 K/mm3 (1.8-7.7) 10/02/20 06:05 D-Dimer 1609.74 ng/mlDDU (0-234) H 10/01/20 16:16 Sodium 135 mmol/L (137-145) L 10/02/20 06:05 Potassium 5.4 mmol/L (3.6-5.0) H 10/02/20 06:05 Chloride 96.8 mmol/L (98-107) L 10/02/20 06:05 Carbon Dioxide 20 mmol/L (22-30) L D 10/02/20 06:05 Anion Gap 24 mmol/L 10/02/20 06:05 BUN 47 mg/dL (7-17) H 10/02/20 06:05 Creatinine 6.0 mg/dL (0.6-1.2) H 10/02/20 06:05 Estimated GFR 8 ml/min 10/02/20 06:05 BUN/Creatinine Ratio 8 % 10/02/20 06:05 Glucose 127 mg/dL (65-100) H 10/02/20 06:05 POC Glucose 147 mg/dL (70-105) H 10/02/20 11:00 Lactic Acid 1.10 mmol/L (0.7-2.0) 10/01/20 16:16 Calcium 8.4 mg/dL (8.4-10.2) 10/02/20 06:05 Ferritin 1937.0 ng/mL (10.0-200.0) H 10/01/20 16:16 Total Bilirubin 0.50 mg/dL (0.1-1.2) 10/01/20 11:39 AST 26 units/L (5-40) 10/01/20 11:39 ALT 9 units/L (7-56) 10/01/20 11:39 Alkaline Phosphatase 50 units/L (35-129) 10/01/20 11:39 Ammonia 20.0 umol/L (25-60) L 10/01/20 11:39 Lactate Dehydrogenase 211 units/L (91-180) H 10/01/20 16:16 Total Creatine Kinase 54 units/L (30-135) 10/01/20 11:39 C-Reactive Protein 4.20 mg/dL (0.00-1.30) H 10/01/20 16:16 Total Protein 5.9 g/dL (6.3-8.2) L 10/01/20 11:39 Albumin 2.6 g/dL (3.9-5) L 10/01/20 11:39 Albumin/Globulin Ratio 0.8 % 10/01/20 11:39 Procalcitonin 0.39 ng/mL (<0.15) 10/01/20 14:32 TSH 6.100 mlU/mL (0.270-4.200) H 10/01/20 11:39 Urine Color [place] (Yellow) 10/01/20 13:15 Urine Turbidity Cloudy (Clear) 10/01/20 13:15 Urine pH 7.0 (5.0-7.0) 10/01/20 13:15 Ur Specific [place] 1.012 (1.003-1.030) 10/01/20 13:15 Urine Protein >500 mg/dL (Negative) 10/01/20 13:15 Urine Glucose (UA) Neg mg/dL (Negative) 10/01/20 13:15 Urine Ketones Neg mg/dL (Negative) 10/01/20 13:15 Urine Blood Sm (Negative) 10/01/20 13:15 Urine Nitrite Neg (Negative) 10/01/20 13:15 Urine Bilirubin Neg (Negative) 10/01/20 13:15 Urine Urobilinogen < 2.0 mg/dL (<2.0) 10/01/20 13:15 Ur Leukocyte Esterase Lg (Negative) 10/01/20 13:15 Urine WBC (Auto) > 182.0 /HPF (0.0-6.0) H 10/01/20 13:15 Urine RBC (Auto) 18.0 /HPF (0.0-6.0) 10/01/20 13:15 U Epithel Cells (Auto) 4.0 /HPF (0-13.0) 10/01/20 13:15 Urine Bacteria (Auto) 1+ /HPF (Negative) 10/01/20 13:15 Urine WBC Clumps 2+ /HPF 10/01/20 13:15 Urine Mucus Few /HPF 10/01/20 13:15 Salicylates < 0.3 mg/dL (2.8-20.0) L 10/01/20 11:39 Urine Opiates Screen Negative 10/01/20 13:15 Urine Methadone Screen Negative 10/01/20 13:15 Acetaminophen 5.0 ug/mL (10.0-30.0) L 10/01/20 11:39 Ur Barbiturates Screen Negative 10/01/20 13:15 Ur Phencyclidine Scrn Negative 10/01/20 13:15 Ur Amphetamines Screen Negative 10/01/20 13:15 U Benzodiazepines Scrn Negative 10/01/20 13:15 Urine Cocaine Screen Negative 10/01/20 13:15 U Marijuana (THC) Screen Negative 10/01/20 13:15 Drugs of Abuse Note Disclamer 10/01/20 13:15 Microbiology: Microbiology 10/01/20 13:15 Urine,Catheterized - Straight Catheter Urine Culture - Preliminary NO GROWTH AFTER 24 HOURS 10/01/20 11:39 Peripheral/Venous Blood Culture - Preliminary Culture in Progress 10/01/20 11:50 Peripheral/Venous Blood Culture - Preliminary Culture in Progress [place]/IV: IV Catheter Type [Right INT / Saline Lock Forearm] IV Catheter Type [Left Upper dialysis access arm] Active Medications - Current Medications Current Medications: Generic Name Dose Route Start Last Admin Trade Name Freq PRN Reason Stop Dose Admin Acetaminophen 650 mg 10/01/20 15:50 Acetaminophen 325 Mg Tab PO Q4H PRN Pain MILD(1-3)/Fever >100.5/VERDE Albuterol 2.5 mg 10/01/20 15:50 Albuterol 2.5 Mg/3 Ml Nebu IH Q4HRT PRN Shortness Of Breath Aspirin 81 mg 10/01/20 17:00 10/02/20 09:48 Aspirin 81 Mg Tab Chew PO 81 mg QDAY BUTCH Administration Carvedilol 12.5 mg 10/01/20 22:00 10/02/20 09:48 Carvedilol 12.5 Mg Tab PO 12.5 mg BID BUTCH Administration Dextrose 50 ml 10/01/20 15:54 Dextrose 50% In Water (25gm) 50 Ml Syringe IV Q30MIN PRN Hypoglycemia Protocol Epoetin Jagjit 10,000 unit 10/02/20 09:19 Epoetin Jagjit 10,000 Unit/1 Ml Inj IV ALANA PRN hemodialysis Famotidine 20 mg 10/02/20 10:00 10/02/20 09:48 Famotidine 20 Mg Tab PO 20 mg DAILY [facility] Administration Heparin Sodium (Porcine) 5,000 unit 10/01/20 22:00 10/02/20 09:48 Heparin 5,000 Unit/1 Ml Vial SUB-Q 5,000 unit Q12HR BUTCH Administration Hydralazine HCl 100 mg 10/01/20 18:00 10/02/20 08:47 Hydralazine 100 Mg Tab PO Not Given Q8HR BUTCH Hydralazine HCl 5 mg 10/01/20 22:31 10/01/20 22:57 Hydralazine 20 Mg/1 Ml Inj IV 5 mg Q4H PRN Administration Blood Pressure Cefepime HCl 1 gm in 100 mls @ 200 mls/hr 10/02/20 18:00 Cefepime/Ns 1 Gm/100 Ml IV QPM BUTCH Sodium Chloride 100 mls @ 999 mls/hr 10/02/20 09:19 Nacl 0.9% IV ALANA PRN Hypotension Insulin Human Lispro 0 unit 10/01/20 16:30 10/02/20 11:22 Insulin Lispro 100 Unit/Ml Vial 3 Ml SUB-Q Not Given ACHS [facility] Protocol Isosorbide Mononitrate 60 mg 10/02/20 10:00 10/02/20 09:47 Isosorbide Mononitrate Er 60 Mg Tab PO 60 mg DAILY BUTCH Administration Lacosamide 50 mg 10/01/20 22:00 10/02/20 09:48 Lacosamide 50 Mg Tab PO 50 mg Q12HR BUTCH Administration Levetiracetam 500 mg 10/01/20 22:00 10/02/20 09:48 Levetiracetam 500 Mg Tab PO 500 mg BID BUTCH Administration Losartan Potassium 50 mg 10/02/20 10:00 10/02/20 09:48 Losartan 50 Mg Tab PO 50 mg QDAY [facility] Administration Megestrol Acetate 400 mg 10/02/20 10:00 10/02/20 11:23 Megestrol 400 Mg/10 Ml Oral Liqd PO 400 mg QDAY BUTCH Administration Methylprednisolone Sodium Succinate 40 mg 10/01/20 18:00 10/02/20 11:23 Methylprednisolone Sod Succinate 40 Mg/1 Ml Inj IV 40 mg Q8H BUTCH Administration Nifedipine 60 mg 10/01/20 22:00 10/02/20 09:47 Nifedipine Xl 60 Mg Tab PO 60 mg Q12HR BUTCH Administration Ondansetron HCl 4 mg 10/01/20 15:50 Ondansetron 4 Mg/2 Ml Inj IV Q8H PRN Nausea And Vomiting Sodium Chloride 10 ml 10/01/20 22:00 10/02/20 11:24 Sodium Chloride 0.9% 10 Ml Flush Syringe IV 10 ml BID BUTCH Administration Sodium Chloride 10 ml 10/01/20 15:50 10/02/20 09:48 Sodium Chloride 0.9% 10 Ml Flush Syringe IV 10 ml PRN PRN Administration LINE FLUSH
--- NOTE | 2020-10-02 14:39 | Consultation ---
History of Present Illness Consult date: 10/02/20 Reason for Consult: Seizure Chief complaint: Seizure History of present illness: 80 yo female with seizure d/o, htn, dm, hld, cadx, chf, aortic stensosi, pulm htn, esrdx, uti, gerd, who presents with noted seizure-like activity after just being dc'ed from [facility] for seizures. Patient was discharged on depako te and keppra. She is currently being ruled out for COVID-19. Past History Past Medical History: diabetes, ESRD, heart failure, hypertension, hyperlipidemia, seizures Past Surgical History: Other (Dialysis access) Social history: single. denies: smoking, alcohol abuse, prescription drug abuse Family history: diabetes, hypertension Medications and Allergies Allergies Allergy/AdvReac Type Severity Reaction Status Date / Time No Known Allergies Allergy Unverified 02/02/18 15:43 Home Medications Medication Instructions Recorded Confirmed Last Taken Type Aspirin 81 mg PO DAILY 08/13/18 09/12/20 08/11/18 History Acetaminophen [Acetaminophen TAB] 650 mg PO Q4H PRN tablet 09/02/18 09/12/20 U nknown Rx Lispro Insulin [HumaLOG] 0 unit SUB-Q ACHS units 09/02/18 09/12/20 Unknown Rx ISOSORBIDE MONOnitrate [Imdur ER] 60 mg PO DAILY tablet 10/15/18 09/12/20 Unknown Rx carvediloL [Coreg] 12.5 mg PO BID tablet 10/15/18 09/12/20 Unknown Rx Losartan [Cozaar] 50 mg PO QDAY #30 tablet 11/01/18 09/12/20 Unknown Rx Lacosamide [Vimpat] 50 mg PO Q12HR #60 tablet 08/22/19 09/12/20 Unknown Rx Linagliptin [Tradjenta] 5 mg PO QDDIAB #30 tablet 08/22/19 09/12/20 Unknown Rx levETIRAcetam [Keppra TAB] 500 mg PO BID #60 tablet 08/22/19 09/12/20 Unknown Rx Famotidine [Pepcid] 20 mg PO DAILY #30 tablet 08/07/20 09/12/20 Unknown Rx NIFEdipine XL [Procardia Xl] 60 mg PO Q12HR #60 tablet 11/17/20 12/23/20 Unknown Rx hydrALAZINE [Apresoline TAB] 100 mg PO Q8HR #90 tab 08/07/20 09/12/20 Unknown Rx megestroL [Megestrol] 400 mg PO QDAY 30 Days #1 oral.liqd 08/07/20 09/12/20 Unknown Rx Active Meds: Active Medications Acetaminophen (Acetaminophen 325 Mg Tab) 650 mg PO Q4H PRN PRN Reason: Pain MILD(1-3)/Fever >100.5/VERDE Albuterol (Albuterol 2.5 Mg/3 Ml Nebu) 2.5 mg IH Q4HRT PRN PRN Reason: Shortness Of Breath Aspirin (Aspirin 81 Mg Tab Chew) 81 mg PO QDAY [facility] Last Admin: 10/02/20 09:48 Dose: 81 mg Documented by: Carvedilol (Carvedilol 12.5 Mg Tab) 12.5 mg PO BID [facility] Last Admin: 10/02/20 09:48 Dose: 12.5 mg Documented by: Dextrose (Dextrose 50% In Water (25gm) 50 Ml Syringe) 50 ml IV Q30MIN PRN; Protocol PRN Reason: Hypoglycemia Epoetin Jagjit (Epoetin Jagjit 10,000 Unit/1 Ml Inj) 10,000 unit IV ALANA PRN PRN Reason: hemodialysis Famotidine (Famotidine 20 Mg Tab) 20 mg PO DAILY [facility] Last Admin: 10/02/20 09:48 Dose: 20 mg Documented by: Heparin Sodium (Porcine) (Heparin 5,000 Unit/1 Ml Vial) 5,000 unit SUB-Q Q12HR [facility] Last Admin: 10/02/20 09:48 Dose: 5,000 unit Documented by: Hydralazine HCl (Hydralazine 100 Mg Tab) 100 mg PO Q8HR [facility] Last Admin: 10/02/20 13:01 Dose: Not Given Documented by: Hydralazine HCl (Hydralazine 20 Mg/1 Ml Inj) 5 mg IV Q4H PRN PRN Reason: Blood Pressure Last Admin: 10/01/20 22:57 Dose: 5 mg Documented by: Cefepime HCl (Cefepime/Ns 1 Gm/100 Ml) 1 gm in 100 mls @ 200 mls/hr IV QPM [facility] Sodium Chloride (Nacl 0.9%) 100 mls @ 999 mls/hr IV ALANA PRN PRN Reason: Hypotension Insulin Human Lispro (Insulin Lispro 100 Unit/Ml Vial 3 Ml) 0 unit SUB-Q ACHS [facility]; Protocol Last Admin: 10/02/20 11:22 Dose: Not Given Documented by: Lacosamide (Lacosamide 50 Mg Tab) 50 mg PO Q12HR [facility] Last Admin: 10/02/20 09:48 Dose: 50 mg Documented by: Levetiracetam (Levetiracetam 500 Mg Tab) 500 mg PO BID [facility] Last Admin: 10/02/20 09:48 Dose: 500 mg Documented by: Losartan Potassium (Losartan 50 Mg Tab) 50 mg PO QDAY [facility] Last Admin: 10/02/20 09:48 Dose: 50 mg Documented by: Megestrol Acetate (Megestrol 400 Mg/10 Ml Oral Liqd) 400 mg PO QDAY [facility] Last Admin: 10/02/20 11:23 Dose: 400 mg Documented by: Methylprednisolone Sodium Succinate (Methylprednisolone Sod Succinate 40 Mg/1 Ml Inj) 40 mg IV Q8H [facility] Last Admin: 10/02/20 11:23 Dose: 40 mg Documented by: Nifedipine (Nifedipine Xl 60 Mg Tab) 60 mg PO Q12HR [facility] Last Admin: 10/02/20 09:47 Dose: 60 mg Documented by: Ondansetron HCl (Ondansetron 4 Mg/2 Ml Inj) 4 mg IV Q8H PRN PRN Reason: Nausea And Vomiting Sodium Chloride (Sodium Chloride 0.9% 10 Ml Flush Syringe) 10 ml IV BID [facility] Last Admin: 10/02/20 11:24 Dose: 10 ml Documented by: Sodium Chloride (Sodium Chloride 0.9% 10 Ml Flush Syringe) 10 ml IV PRN PRN PRN Reason: LINE FLUSH Last Admin: 10/02/20 09:48 Dose: 10 ml Documented by: Physical Examination - Vital Signs Vital Signs: Vital Signs Temp 99.7 F H 10/01/20 10:30 - Physical Exam Narrative exam: Patient not seen due to COVID-19 restrictions. Results - Laboratory Findings CBC and BMP: 10/02/20 06:05 10/02/20 06:05 Abnormal Lab Findings: Abnormal Labs 10/01/20 10/01/20 10/01/20 11:39 11:39 11:39 WBC 3.4 L RBC 2.70 L Hgb 8.5 L Hct 25.5 L RDW 17.8 H Plt Count 110 L Lymph % (Auto) 11.2 L [place] % (Auto) 10.2 H Lymph # (Auto) 0.4 L Seg Neutrophils % 77.8 H D-Dimer Sodium 135 L Potassium Chloride 97.4 L Carbon Dioxide BUN 34 H Creatinine 4.9 H Glucose POC Glucose Calcium 8.1 L Ferritin Ammonia 20.0 L Lactate Dehydrogenase C-Reactive Protein Total Protein 5.9 L Albumin 2.6 L TSH Urine WBC (Auto) Salicylates Acetaminophen Coronavirus (PCR) 10/01/20 10/01/20 10/01/20 11:39 11:39 11:39 WBC RBC Hgb Hct RDW Plt Count Lymph % (Auto) [place] % (Auto) Lymph # (Auto) Seg Neutrophils % D-Dimer Sodium Potassium Chloride Carbon Dioxide BUN Creatinine Glucose POC Glucose Calcium Ferritin Ammonia Lactate Dehydrogenase C-Reactive Protein Total Protein Albumin TSH 6.100 H Urine WBC (Auto) Salicylates < 0.3 L Acetaminophen 5.0 L Coronavirus (PCR) 10/01/20 10/01/20 10/01/20 13:15 14:32 14:32 WBC RBC Hgb Hct RDW Plt Count Lymph % (Auto) [place] % (Auto) Lymph # (Auto) Seg Neutrophils % D-Dimer 1617.54 H Sodium Potassium Chloride Carbon Dioxide BUN Creatinine Glucose POC Glucose Calcium Ferritin Ammonia Lactate Dehydrogenase 220 H C-Reactive Protein 4.00 H Total Protein Albumin TSH Urine WBC (Auto) > 182.0 H Salicylates Acetaminophen Coronavirus (PCR) 10/01/20 10/01/20 10/01/20 14:32 16:16 16:16 WBC RBC Hgb Hct RDW Plt Count Lymph % (Auto) [place] % (Auto) Lymph # (Auto) Seg Neutrophils % D-Dimer 1609.74 H Sodium Potassium Chloride Carbon Dioxide BUN Creatinine Glucose POC Glucose Calcium Ferritin 1996.0 H Ammonia Lactate Dehydrogenase 211 H C-Reactive Protein 4.20 H Total Protein Albumin TSH Urine WBC (Auto) Salicylates Acetaminophen Coronavirus (PCR) 10/01/20 10/02/20 10/02/20 16:16 06:05 06:05 WBC 2.4 L RBC 3.18 L Hgb 10.0 L Hct 29.9 L RDW 18.1 H Plt Count 113 L Lymph % (Auto) 10.1 L [place] % (Auto) Lymph # (Auto) 0.2 L Seg Neutrophils % 82.8 H D-Dimer Sodium 135 L Potassium 5.4 H Chloride 96.8 L Carbon Dioxide 20 L D BUN 47 H Creatinine 6.0 H Glucose 127 H POC Glucose Calcium Ferritin 1937.0 H Ammonia Lactate Dehydrogenase C-Reactive Protein Total Protein Albumin TSH Urine WBC (Auto) Salicylates Acetaminophen Coronavirus (PCR) 10/02/20 10/02/20 10/02/20 08:03 11:00 Unknown WBC RBC Hgb Hct RDW Plt Count Lymph % (Auto) [place] % (Auto) Lymph # (Auto) Seg Neutrophils % D-Dimer Sodium Potassium Chloride Carbon Dioxide BUN Creatinine Glucose POC Glucose 116 H 147 H Calcium Ferritin Ammonia Lactate Dehydrogenase C-Reactive Protein Total Protein Albumin TSH Urine WBC (Auto) Salicylates Acetaminophen Coronavirus (PCR) Positive A Assessment and Plan 80 yo female with seizure d/o, htn, dm, hld, cadx, chf, aortic stensosi, pulm htn, esrdx, uti, gerd, who presents with noted seizure-like activity after just being dc'ed from [facility] for seizures. 1. Seizure d/o - continue Keppra 500 mg bid; recommend depakote 750 mg po bid; ordered EEG; recommend MRI Brain w/o contrast when clinincally stable. 2. Therapeutic Drug Monitoring - check depkaote level and adjust accordingly. 3. Pancytopenia - workup per primary team or Hematology. Luis Carter MD Neurology
--- NOTE | 2020-10-02 14:57 | Consultation ---
History of Present Illness - Reason for Consult Consult date: 10/02/20 - History of Present Illness 80-year-old female past medical history hypertension, diabetes, seizures, CHF, ESRD on HD, dementia admitted to the hospital with confusion and lethargy. She had been discharged from [facility] the day prior to admission, and was found to have increased confusion and shortness of breath on the morning of mission. She was brought to the hospital due to the respiratory distress. She had presented to [facility] due to seizures, she was admitted as she was discharged from the ER. However she was recently admitted to [facility] and discharged on 09/18/2020 due to confusion. She had a negative Covid test there on 09/16/2020 Afebrile, white count 2.4. In-house Covid testing positive. Blood and urine cultures pending. Currently on cefepime Imaging personally reviewed: Chest x-ray: Diffuse bilateral pulmonary opacities Review of systems: Deferred due to PPE conservation strategy Past History Past Medical History: diabetes, ESRD, heart failure, hypertension, hyperlipidemia, seizures Past Surgical History: Other (Dialysis access) Social history: single. denies: smoking, alcohol abuse, prescription drug abuse Family history: diabetes, hypertension Medications and Allergies Allergies Allergy/AdvReac Type Severity Reaction Status Date / Time No Known Allergies Allergy Unverified 02/02/18 15:43 Home Medications Medication Instructions Recorded Confirmed Last Taken Type Aspirin 81 mg PO DAILY 08/13/18 09/12/20 08/11/18 History Acetaminophen [Acetaminophen TAB] 650 mg PO Q4H PRN tablet 09/02/18 09/12/20 Unknown Rx Lispro Insulin [HumaLOG] 0 unit SUB-Q ACHS units 09/02/18 09/12/20 Unknown Rx ISOSORBIDE MONOnitrate [Imdur ER] 60 mg PO DAILY tablet 10/15/18 09/12/20 Unknown Rx carvediloL [Coreg] 12.5 mg PO BID tablet 10/15/18 09/12/20 Unknown Rx Losartan [Cozaar] 50 mg PO QDAY #30 tablet 11/01/18 09/12/20 Unknown Rx Lacosamide [Vimpat] 50 mg PO Q12HR #60 tablet 08/22/19 09/12/20 Unknown Rx Linagliptin [Tradjenta] 5 mg PO QDDIAB #30 tablet 08/22/19 09/12/20 Unknown Rx levETIRAcetam [Keppra TAB] 500 mg PO BID #60 tablet 08/22/19 09/12/20 Unknown Rx Famotidine [Pepcid] 20 mg PO DAILY #30 tablet 08/07/20 09/12/20 Unknown Rx NIFEdipine XL [Procardia Xl] 60 mg PO Q12HR #60 tablet 08/07/20 09/12/20 Unknown Rx hydrALAZINE [Apresoline TAB] 100 mg PO Q8HR #90 tab 08/07/20 09/12/20 Unknown Rx megestroL [Megestrol] 400 mg PO QDAY 30 Days #1 oral.liqd 08/07/20 09/12/20 Unknown Rx Active Meds: Active Medications Acetaminophen (Acetaminophen 325 Mg Tab) 650 mg PO Q4H PRN PRN Reason: Pain MILD(1-3)/Fever >100.5/VERDE Albuterol (Albuterol 2.5 Mg/3 Ml Nebu) 2.5 mg IH Q4HRT PRN PRN Reason: Shortness Of Breath Aspirin (Aspirin 81 Mg Tab Chew) 81 mg PO QDAY [facility] Last Admin: 10/02/20 09:48 Dose: 81 mg Documented by: Carvedilol (Carvedilol 12.5 Mg Tab) 12.5 mg PO BID [facility] Last Admin: 10/02/20 09:48 Dose: 12.5 mg Documented by: Dextrose (Dextrose 50% In Water (25gm) 50 Ml Syringe) 50 ml IV Q30MIN PRN; Protocol PRN Reason: Hypoglycemia Epoetin Jagjit (Epoetin Jagjit 10,000 Unit/1 Ml Inj) 10,000 unit IV ALANA PRN PRN Reason: hemodialysis Famotidine (Famotidine 20 Mg Tab) 20 mg PO DAILY [facility] Last Admin: 10/02/20 09:48 Dose: 20 mg Documented by: Heparin Sodium (Porcine) (Heparin 5,000 Unit/1 Ml Vial) 5,000 unit SUB-Q Q12HR [facility] Last Admin: 10/02/20 09:48 Dose: 5,000 unit Documented by: Hydralazine HCl (Hydralazine 100 Mg Tab) 100 mg PO Q8HR [facility] Last Admin: 10/02/20 13:01 Dose: Not Given Documented by: Hydralazine HCl (Hydralazine 20 Mg/1 Ml Inj) 5 mg IV Q4H PRN PRN Reason: Blood Pressure Last Admin: 10/01/20 22:57 Dose: 5 mg Documented by: Cefepime HCl (Cefepime/Ns 1 Gm/100 Ml) 1 gm in 100 mls @ 200 mls/hr IV QPM [facility] Sodium Chloride (Nacl 0.9%) 100 mls @ 999 mls/hr IV ALANA PRN PRN Reason: Hypotension Insulin Human Lispro (Insulin Lispro 100 Unit/Ml Vial 3 Ml) 0 unit SUB-Q ACHS [facility]; Protocol Last Admin: 10/02/20 11:22 Dose: Not Given Documented by: Lacosamide (Lacosamide 50 Mg Tab) 50 mg PO Q12HR [facility] Last Admin: 10/02/20 09:48 Dose: 50 mg Documented by: Levetiracetam (Levetiracetam 500 Mg Tab) 500 mg PO BID [facility] Last Admin: 10/02/20 09:48 Dose: 500 mg Documented by: Losartan Potassium (Losartan 50 Mg Tab) 50 mg PO QDAY [facility] Last Admin: 10/02/20 09:48 Dose: 50 mg Documented by: Megestrol Acetate (Megestrol 400 Mg/10 Ml Oral Liqd) 400 mg PO QDAY [facility] Last Admin: 10/02/20 11:23 Dose: 400 mg Documented by: Methylprednisolone Sodium Succinate (Methylprednisolone Sod Succinate 40 Mg/1 Ml Inj) 40 mg IV Q8H [facility] Last Admin: 10/02/20 11:23 Dose: 40 mg Documented by: Nifedipine (Nifedipine Xl 60 Mg Tab) 60 mg PO Q12HR [facility] Last Admin: 10/02/20 09:47 Dose: 60 mg Documented by: Ondansetron HCl (Ondansetron 4 Mg/2 Ml Inj) 4 mg IV Q8H PRN PRN Reason: Nausea And Vomiting Sodium Chloride (Sodium Chloride 0.9% 10 Ml Flush Syringe) 10 ml IV BID [facility] Last Admin: 10/02/20 11:24 Dose: 10 ml Documented by: Sodium Chloride (Sodium Chloride 0.9% 10 Ml Flush Syringe) 10 ml IV PRN PRN PRN Reason: LINE FLUSH Last Admin: 10/02/20 09:48 Dose: 10 ml Documented by: Physical Examination - Physical Exam Narrative exam: Physical exam deferred due to PPE conservation strategy. Please refer to primary team's note. - Constitutional Vitals: Vital Signs Temp Pulse Resp BP Pulse Ox 97.1 F L 60 18 87/35 95 10/02/20 11:00 10/02/20 11:00 10/02/20 11:00 10/02/20 11:00 10/02/20 11:00 Temperature -Last 24 Hours Temperature 97.1 F Temperature 97.5 F Temperature 98.5 F Temperature 99.3 F Results - Labs CBC & Chem 7: 10/02/20 06:05 10/02/20 06:05 Labs: Abnormal lab results 10/01/20 10/01/20 10/01/20 Range/Units 14:32 14:32 14:32 WBC (4.5-11.0) K/mm3 RBC (3.65-5.03) M/mm3 Hgb (10.1-14.3) gm/dl Hct (30.3-42.9) % RDW (13.2-15.2) % Plt Count (140-440) K/mm3 Lymph % (Auto) (13.4-35.0) % Lymph # (Auto) (1.2-5.4) K/mm3 Seg Neutrophils % (40.0-70.0) % D-Dimer 1617.54 H (0-234) ng/mlDDU Sodium (137-145) mmol/L Potassium (3.6-5.0) mmol/L Chloride (98-107) mmol/L Carbon Dioxide (22-30) mmol/L BUN (7-17) mg/dL Creatinine (0.6-1.2) mg/dL Glucose (65-100) mg/dL POC Glucose (70-105) mg/dL Ferritin 1996.0 H (10.0-200.0) ng/mL Lactate Dehydrogenase 220 H (91-180) units/L C-Reactive Protein 4.00 H (0.00-1.30) mg/dL Coronavirus (PCR) (Negative) 10/01/20 10/01/20 10/01/20 Range/Units 16:16 16:16 16:16 WBC (4.5-11.0) K/mm3 RBC (3.65-5.03) M/mm3 Hgb (10.1-14.3) gm/dl Hct (30.3-42.9) % RDW (13.2-15.2) % Plt Count (140-440) K/mm3 Lymph % (Auto) (13.4-35.0) % Lymph # (Auto) (1.2-5.4) K/mm3 Seg Neutrophils % (40.0-70.0) % D-Dimer 1609.74 H (0-234) ng/mlDDU Sodium (137-145) mmol/L Potassium (3.6-5.0) mmol/L Chloride (98-107) mmol/L Carbon Dioxide (22-30) mmol/L BUN (7-17) mg/dL Creatinine (0.6-1.2) mg/dL Glucose (65-100) mg/dL POC Glucose (70-105) mg/dL Ferritin 1937.0 H (10.0-200.0) ng/mL Lactate Dehydrogenase 211 H (91-180) units/L C-Reactive Protein 4.20 H (0.00-1.30) mg/dL Coronavirus (PCR) (Negative) 10/02/20 10/02/20 10/02/20 Range/Units 06:05 06:05 08:03 WBC 2.4 L (4.5-11.0) K/mm3 RBC 3.18 L (3.65-5.03) M/mm3 Hgb 10.0 L (10.1-14.3) gm/dl Hct 29.9 L (30.3-42.9) % RDW 18.1 H (13.2-15.2) % Plt Count 113 L (140-440) K/mm3 Lymph % (Auto) 10.1 L (13.4-35.0) % Lymph # (Auto) 0.2 L (1.2-5.4) K/mm3 Seg Neutrophils % 82.8 H (40.0-70.0) % D-Dimer (0-234) ng/mlDDU Sodium 135 L (137-145) mmol/L Potassium 5.4 H (3.6-5.0) mmol/L Chloride 96.8 L (98-107) mmol/L Carbon Dioxide 20 L D (22-30) mmol/L BUN 47 H (7-17) mg/dL Creatinine 6.0 H (0.6-1.2) mg/dL Glucose 127 H (65-100) mg/dL POC Glucose 116 H (70-105) mg/dL Ferritin (10.0-200.0) ng/mL Lactate Dehydrogenase (91-180) units/L C-Reactive Protein (0.00-1.30) mg/dL Coronavirus (PCR) (Negative) 10/02/20 10/02/20 Range/Units 11:00 Unknown WBC (4.5-11.0) K/mm3 RBC (3.65-5.03) M/mm3 Hgb (10.1-14.3) gm/dl Hct (30.3-42.9) % RDW (13.2-15.2) % Plt Count (140-440) K/mm3 Lymph % (Auto) (13.4-35.0) % Lymph # (Auto) (1.2-5.4) K/mm3 Seg Neutrophils % (40.0-70.0) % D-Dimer (0-234) ng/mlDDU Sodium (137-145) mmol/L Potassium (3.6-5.0) mmol/L Chloride (98-107) mmol/L Carbon Dioxide (22-30) mmol/L BUN (7-17) mg/dL Creatinine (0.6-1.2) mg/dL Glucose (65-100) mg/dL POC Glucose 147 H (70-105) mg/dL Ferritin (10.0-200.0) ng/mL Lactate Dehydrogenase (91-180) units/L C-Reactive Protein (0.00-1.30) mg/dL Coronavirus (PCR) Positive A (Negative) Assessment and Plan Cultures: Blood culture pending Urine culture pending COVID-19 positive A/P: 80-year-old female past medical history hypertension, diabetes, seizures, CHF, ESRD on HD, dementia admitted with COVID-19. #COVID-19 pneumonia: Patient presented with a day of symptoms, chest x-ray with diffuse bilateral infiltrates. Inflammatory markers elevated. #Acute hypoxemic respiratory failure: Likely secondary to COVID-19 infection. Currently on #Leukopenia: Likely secondary to COVID-19 #ESRD on HD: Renally adjust medications, not a candidate for remdesivir #UTI: Significant pyuria, urine cultures currently negative. Patient unable to say if she has symptoms due to altered mental status. #Acute encephalopathy Recs: -Continue steroids per primary, complete 10 days. -Not a candidate for remdesivir. -Obtain daily inflammatory markers - ferritin, Ddimer, CRP, LDH -Anticoagulation per hospital protocol -Proning if able -Continue cefepime renally dosed for UTI. Complete 3 days. Thank you for the consult, we will continue to follow. Bj Arroyo MD [facility] ([facility] O: [phone] F: [phone]
[2020-10-02] MEDS: EPOETIN ALFA 10,000 UNIT/1 ML INJ IV PRN (20:20)
[2020-10-02] MEDS: CEFEPIME/NS 1 GM/100 ML 1 GM/100 ML BAG IV SCH (22:44)
[2020-10-03] MEDS: methylPREDNISolone Sod Succinate 40 MG/1 ML INJ IV SCH ×3 (04:39→17:44)
[2020-10-03] MEDS: hydrALAZINE 100 MG TAB PO SCH ×3 (08:14→21:46)
[2020-10-03] MEDS: INSULIN LISPRO 100 UNIT/ML VIAL 3 mL SUB-Q SCH ×4 (09:02→23:21)
[2020-10-03] MEDS: ASPIRIN 81 MG TAB CHEW PO SCH (09:03)
[2020-10-03] MEDS: LOSARTAN 50 MG TAB PO SCH (09:03)
[2020-10-03] MEDS: carvediloL 12.5 MG TAB PO SCH ×2 (09:03→21:46)
[2020-10-03] MEDS: levETIRAcetam 500 MG TAB PO SCH ×2 (09:04→21:50)
[2020-10-03] MEDS: HEPARIN 5,000 UNIT/1 ML VIAL SUB-Q SCH ×2 (09:04→21:47)
[2020-10-03] MEDS: MEGESTROL 400 MG/10 ML ORAL LIQD PO SCH (09:04)
[2020-10-03] MEDS: FAMOTIDINE 20 MG TAB PO SCH (09:05)
[2020-10-03] MEDS: NIFEdipine XL 60 MG TAB PO SCH ×2 (09:05→21:45)
[2020-10-03] MEDS: LACOSAMIDE 50 MG TAB PO SCH (09:06)
--- NOTE | 2020-10-03 09:16 | Progress Note ---
Assessment and Plan Impression * End-stage renal disease on maintenance hemodialysis * Altered mental status * Pneumonia * Covid PUI * Hypertension * Diabetes * Hyperkalemia * Anemia secondary to ESRD Recommendations * Patient had uneventful hemodialysis yesterday * Continue dialysis on TTS schedule for now * Hopefully her hyperkalemia has been corrected with dialysis * Epogen with dialysis * Binders with meals * Adjust diet and meds for ESRD state * No IV, BP or venipuncture in her access arm * Management of pneumonia as per primary team * Recheck her chemistries tomorrow Subjective Date of service: 10/03/20 Interval history: Patient had uneventful hemodialysis yesterday. Preceding notes appreciated. Objective - Exam Narrative Exam: Physical exam deferred due to patient's Covid positive status - Vital Signs Vital signs: Vital Signs - 12hr 10/02/20 10/02/20 10/02/20 21:37 22:22 22:41 Temperature 98.0 F 97.8 F 97.8 F Pulse Rate 71 72 Respiratory 20 20 16 Rate Blood Pressure 141/55 135/48 Blood Pressure 135/48 [Right] O2 Sat by Pulse 96 Oximetry 10/03/20 03:55 Temperature 98.4 F Pulse Rate 75 Respiratory 16 Rate Blood Pressure 156/57 Blood Pressure [Right] O2 Sat by Pulse 99 Oximetry - Lab 10/02/20 06:05 10/02/20 06:05 Most recent lab results Calcium 8.4 mg/dL (8.4-10.2) 10/02/20 06:05 Medications & Allergies - Medications Allergies/Adverse Reactions: Allergies No Known Allergies Allergy (Unverified 02/02/18 15:43) Home Medications: Home Medications Medication Instructions Recorded Confirmed Last Taken Type Aspirin 81 mg PO DAILY 08/13/18 09/12/20 08/11/18 History Acetaminophen [Acetaminophen TAB] 650 mg PO Q4H PRN tablet 09/02/18 09/12/20 Un known Rx Lispro Insulin [HumaLOG] 0 unit SUB-Q ACHS units 09/02/18 09/12/20 Unknown Rx ISOSORBIDE MONOnitrate [Imdur ER] 60 mg PO DAILY tablet 10/15/18 09/12/20 Unknown Rx carvediloL [Coreg] 12.5 mg PO BID tablet 10/15/18 09/12/20 Unknown Rx Losartan [Cozaar] 50 mg PO QDAY #30 tablet 11/01/18 09/12/20 Unknown Rx Lacosamide [Vimpat] 50 mg PO Q12HR #60 tablet 08/22/19 09/12/20 Unknown Rx Linagliptin [Tradjenta] 5 mg PO QDDIAB #30 tablet 08/22/19 09/12/20 Unknown Rx levETIRAcetam [Keppra TAB] 500 mg PO BID #60 tablet 08/22/19 09/12/20 Unknown Rx Famotidine [Pepcid] 20 mg PO DAILY #30 tablet 08/07/20 09/12/20 Unknown Rx NIFEdipine XL [Procardia Xl] 60 mg PO Q12HR #60 tablet 08/07/20 09/12/20 Unknown Rx hydrALAZINE [Apresoline TAB] 100 mg PO Q8HR #90 tab 08/07/20 09/12/20 Unknown Rx megestroL [Megestrol] 400 mg PO QDAY 30 Days #1 oral.liqd 08/07/20 09/12/20 Unknown Rx Active Medications: Generic Name Dose Route Start Last Admin Trade Name Freq PRN Reason Stop Dose Admin Acetaminophen 650 mg 10/01/20 15:50 Acetaminophen 325 Mg Tab PO Q4H PRN Pain MILD(1-3)/Fever >100.5/VERDE Albuterol 2.5 mg 10/01/20 15:50 Albuterol 2.5 Mg/3 Ml Nebu IH Q4HRT PRN Shortness Of Breath Aspirin 81 mg 10/01/20 17:00 10/03/20 09:03 Aspirin 81 Mg Tab Chew PO 81 mg QDAY [facility] Administration Carvedilol 12.5 mg 10/01/20 22:00 10/03/20 09:03 Carvedilol 12.5 Mg Tab PO 12.5 mg BID [facility] Administration Dextrose 50 ml 10/01/20 15:54 Dextrose 50% In Water (25gm) 50 Ml Syringe IV Q30MIN PRN Hypoglycemia Protocol Epoetin Jagjit 10,000 unit 10/02/20 09:19 10/02/20 20:20 Epoetin Jagjit 10,000 Unit/1 Ml Inj IV 10,000 unit ALANA PRN Administration hemodialysis Famotidine 20 mg 10/02/20 10:00 10/03/20 09:05 Famotidine 20 Mg Tab PO 20 mg DAILY [facility] Administration Heparin Sodium (Porcine) 5,000 unit 10/01/20 22:00 10/03/20 09:04 Heparin 5,000 Unit/1 Ml Vial SUB-Q 5,000 unit Q12HR [facility] Administration Hydralazine HCl 100 mg 10/01/20 18:00 10/03/20 08:14 Hydralazine 100 Mg Tab PO Not Given Q8HR [facility] Hydralazine HCl 5 mg 10/01/20 22:31 10/01/20 22:57 Hydralazine 20 Mg/1 Ml Inj IV 5 mg Q4H PRN Administration Blood Pressure Cefepime HCl 1 gm in 100 mls @ 200 mls/hr 10/02/20 18:00 10/02/20 22:44 Cefepime/Ns 1 Gm/100 Ml IV 200 mls/hr QPM [facility] Administration Sodium Chloride 100 mls @ 999 mls/hr 10/02/20 09:19 Nacl 0.9% IV ALANA PRN Hypotension Insulin Human Lispro 0 unit 10/01/20 16:30 10/03/20 09:02 Insulin Lispro 100 Unit/Ml Vial 3 Ml SUB-Q 2 unit ACHS [facility] Administration Protocol Lacosamide 50 mg 10/01/20 22:00 10/03/20 09:06 Lacosamide 50 Mg Tab PO 50 mg Q12HR [facility] Administration Levetiracetam 500 mg 10/01/20 22:00 10/03/20 09:04 Levetiracetam 500 Mg Tab PO 500 mg BID [facility] Administration Losartan Potassium 50 mg 10/02/20 10:00 10/03/20 09:03 Losartan 50 Mg Tab PO Not Given QDAY [facility] Megestrol Acetate 400 mg 10/02/20 10:00 10/03/20 09:04 Megestrol 400 Mg/10 Ml Oral Liqd PO 400 mg QDAY [facility] Administration Methylprednisolone Sodium Succinate 40 mg 10/01/20 18:00 10/03/20 09:05 Methylprednisolone Sod Succinate 40 Mg/1 Ml Inj IV 40 mg Q8H [facility] Administration Nifedipine 60 mg 10/01/20 22:00 10/03/20 09:05 Nifedipine Xl 60 Mg Tab PO 60 mg Q12HR [facility] Administration Ondansetron HCl 4 mg 10/01/20 15:50 Ondansetron 4 Mg/2 Ml Inj IV Q8H PRN Nausea And Vomiting Sodium Chloride 10 ml 10/01/20 22:00 10/03/20 09:05 Sodium Chloride 0.9% 10 Ml Flush Syringe IV 10 ml BID [facility] Administration Sodium Chloride 10 ml 10/01/20 15:50 10/02/20 09:48 Sodium Chloride 0.9% 10 Ml Flush Syringe IV 10 ml PRN PRN Administration LINE FLUSH
[2020-10-03 10:25] LABS: Hematocrit 29.1 % (30.3-42.9); Hemoglobin 9.6 gm/dl (10.1-14.3); Mean Corpuscular HGB Conc 33 % (30-34); Mean Corpuscular Volume 95 fl (79-97); Platelet Count 121 K/mm3 (140-440); Red Blood Count 3.05 M/mm3 (3.65-5.03); Red Cell Distribution Width 17.7 % (13.2-15.2)
[2020-10-03 10:28] LABS: Albumin 2.9 g/dL (3.9-5); C-Reactive Protein 2.7 mg/dL (0.00-1.30); Calcium 8.4 mg/dL (8.4-10.2)
[2020-10-03 11:19] LABS: Anisocytosis 1+; Poikilocytosis 1+; Target Cells Few; Total Cells Counted 100
[2020-10-03 11:20] LABS: Burr Cells Few; Ovalocytes Few; Platelet Estimate Consistent w Auto
--- NOTE | 2020-10-03 11:30 | Progress Note ---
Assessment and Plan Assessment and plan: 1) Multifocal pneumonia Current Visit: Yes Status: Acute Plan to address problem: Pneumonia protocol: Chest x-ray, CBC, CMP, supplemental oxygen, pulse oximetry, nebulizer therapy, blood culture. (2) COVID-19 virus infection Current Visit: Yes Status: Acute Plan to address problem: Coronavirus protocol: Contact precautions, isolation precautions, IV antibiotic therapy, IV steroid therapy, prone positioning while in bed, pulmonary toilet. (3) End-stage renal disease on hemodialysis Current Visit: Yes Status: Acute Plan to address problem: Nephrology team consulted in ED, dialysis as per renal team, strict I's/O, avoid nephrotoxic agents. (4) Vascular dementia Current Visit: Yes Status: Acute Qualifiers: Dementia behavioral disturbance: without behavioral disturbance Qualified Code(s): F01.50 - Vascular dementia without behavioral disturbance Plan to address problem: Monitor (5) Seizure Current Visit: Yes Status: Acute Plan to address problem: Continue keppra Depakote 750mg BID EEG and MRI brain w/wo contrast (6) Urinary tract infection Current Visit: Yes Status: Chronic Qualifiers: Encounter type: initial encounter Plan to address problem: Antibiotics (7) Accelerated hypertension Current Visit: No Status: Acute Plan to address problem: Monitor blood pressure every shift, continue medical management. (8) DVT prophylaxis Current Visit: Yes Status: Acute Plan to address problem: SCD to bilateral lower extremities while in bed, prophylactic anticoagulation. (9) Advance care planning Current Visit: Yes Status: Acute Plan to address problem: Disease education conducted, patient is full code, care plan discussed, prognosis discussed, patient family knowledge understanding and agreement with care plan, +30 minutes. History Interval history: No acute events noted overnight Hospitalist Physical - Physical exam Narrative exam: VITAL SIGNS: Reviewed. GENERAL: Awake HEAD: No signs of head trauma. EYES: Pupils are equal. Extraocular motions intact. MOUTH: Oropharynx is normal. NECK: No adenopathy, no JVD. CHEST: Chest with diminished breath sounds bilaterally. No wheezes, rales, or rhonchi. CARDIAC: normal S1 and S2, without murmurs, gallops, or rubs. ABDOMEN: Soft, non tender and non distended. No rebound or guarding, and no masses palpated. Bowel Sounds normal. MUSCULOSKELETAL: No edema NEUROLOGIC EXAM: Awake confused. No focal neurologic deficits SKIN: No obvious lesions - Constitutional Vitals: Temp Pulse Resp BP Pulse Ox 100.2 F H 83 22 119/50 93 10/03/20 10:39 10/03/20 10:39 10/03/20 10:39 10/03/20 10:39 10/03/20 10:39 Results - Labs CBC & Chem 7: 10/03/20 09:30 10/03/20 09:30 Labs: Laboratory Last Values WBC 4.3 K/mm3 (4.5-11.0) L 10/03/20 09:30 RBC 3.05 M/mm3 (3.65-5.03) L 10/03/20 09:30 Hgb 9.6 gm/dl (10.1-14.3) L 10/03/20 09:30 Hct 29.1 % (30.3-42.9) L 10/03/20 09:30 MCV 95 fl (79-97) 10/03/20 09:30 MCH 32 pg (28-32) 10/03/20 09:30 MCHC 33 % (30-34) 10/03/20 09:30 RDW 17.7 % (13.2-15.2) H 10/03/20 09:30 Plt Count 121 K/mm3 (140-440) L 10/03/20 09:30 Lymph % (Auto) 10.1 % (13.4-35.0) L 10/02/20 06:05 [place] % (Auto) 6.2 % (0.0-7.3) 10/02/20 06:05 Eos % (Auto) 0.0 % (0.0-4.3) 10/02/20 06:05 Baso % (Auto) 0.9 % (0.0-1.8) 10/02/20 06:05 Lymph # (Auto) 0.2 K/mm3 (1.2-5.4) L 10/02/20 06:05 [place] # (Auto) 0.1 K/mm3 (0.0-0.8) 10/02/20 06:05 Eos # (Auto) 0.0 K/mm3 (0.0-0.4) 10/02/20 06:05 Baso # (Auto) 0.0 K/mm3 (0.0-0.1) 10/02/20 06:05 Add Manual Diff Complete 10/03/20 09:30 Total Counted 100 10/03/20 09:30 Seg Neutrophils % 82.8 % (40.0-70.0) H 10/02/20 06:05 Seg Neuts % (Manual) 95.0 % (40.0-70.0) H 10/03/20 09:30 Lymphocytes % (Manual) 1.0 % (13.4-35.0) L 10/03/20 09:30 Monocytes % (Manual) 4.0 % (0.0-7.3) 10/03/20 09:30 Nucleated RBC % 1.0 % (0.0-0.9) H 10/03/20 09:30 Seg Neutrophils # 2.0 K/mm3 (1.8-7.7) 10/02/20 06:05 Seg Neutrophils # Man 4.1 K/mm3 (1.8-7.7) 10/03/20 09:30 Band Neutrophils # 0.0 K/mm3 10/03/20 09:30 Lymphocytes # (Manual) 0.0 K/mm3 (1.2-5.4) L 10/03/20 09:30 Abs React Lymphs (Man) 0.0 K/mm3 10/03/20 09:30 Monocytes # (Manual) 0.2 K/mm3 (0.0-0.8) 10/03/20 09:30 Eosinophils # (Manual) 0.0 K/mm3 (0.0-0.4) 10/03/20 09:30 Basophils # (Manual) 0.0 K/mm3 (0.0-0.1) 10/03/20 09:30 Metamyelocytes # 0.0 K/mm3 10/03/20 09:30 Myelocytes # 0.0 K/mm3 10/03/20 09:30 Promyelocytes # 0.0 K/mm3 10/03/20 09:30 Blast Cells # 0.0 K/mm3 10/03/20 09:30 WBC Morphology Not Reportable 10/03/20 09:30 Hypersegmented Neuts Not Reportable 10/03/20 09:30 Hyposegmented Neuts Not Reportable 10/03/20 09:30 Hypogranular Neuts Not Reportable 10/03/20 09:30 Smudge Cells Not Reportable 10/03/20 09:30 Toxic Granulation Not Reportable 10/03/20 09:30 Toxic Vacuolation Not Reportable 10/03/20 09:30 Dohle Bodies Not Reportable 10/03/20 09:30 Pelger-Huet Anomaly Not Reportable 10/03/20 09:30 Richard Rods Not Reportable 10/03/20 09:30 Platelet Estimate Consistent w auto 10/03/20 09:30 Clumped Platelets Not Reportable 10/03/20 09:30 Plt Clumps, EDTA Not Reportable 10/03/20 09:30 Large Platelets Not Reportable 10/03/20 09:30 Giant Platelets Not Reportable 10/03/20 09:30 Platelet Satelliting Not Reportable 10/03/20 09:30 Plt Morphology Comment Not Reportable 10/03/20 09:30 RBC Morphology Not Reportable 10/03/20 09:30 Dimorphic RBCs Not Reportable 10/03/20 09:30 Polychromasia Few 10/03/20 09:30 Hypochromasia Not Reportable 10/03/20 09:30 Poikilocytosis 1+ 10/03/20 09:30 Anisocytosis 1+ 10/03/20 09:30 Microcytosis Not Reportable 10/03/20 09:30 Macrocytosis Not Reportable 10/03/20 09:30 Spherocytes Not Reportable 10/03/20 09:30 Pappenheimer Bodies Not Reportable 10/03/20 09:30 Sickle Cells Not Reportable 10/03/20 09:30 Target Cells Few 10/03/20 09:30 Tear Drop Cells Not Reportable 10/03/20 09:30 Ovalocytes Few 10/03/20 09:30 Helmet Cells Not Reportable 10/03/20 09:30 Cavazos-Metz Bodies Not Reportable 10/03/20 09:30 [place]quette Rings Not Reportable 10/03/20 09:30 Morena Cells Few 10/03/20 09:30 Bite Cells Not Reportable 10/03/20 09:30 Crenated Cell Not Reportable 10/03/20 09:30 Elliptocytes Not Reportable 10/03/20 09:30 Acanthocytes (Spur) Not Reportable 10/03/20 09:30 Rouleaux Not Reportable 10/03/20 09:30 Hemoglobin C Crystals Not Reportable 10/03/20 09:30 Schistocytes Not Reportable 10/03/20 09:30 Malaria parasites Not Reportable 10/03/20 09:30 Cristofer Bodies Not Reportable 10/03/20 09:30 Hem Pathologist Commnt No 10/03/20 09:30 D-Dimer 1609.74 ng/mlDDU (0-234) H 10/01/20 16:16 Sodium 137 mmol/L (137-145) 10/03/20 09:30 Potassium 4.4 mmol/L (3.6-5.0) 10/03/20 09:30 Chloride 98.0 mmol/L (98-107) 10/03/20 09:30 Carbon Dioxide 27 mmol/L (22-30) D 10/03/20 09:30 Anion Gap 16 mmol/L 10/03/20 09:30 BUN 27 mg/dL (7-17) H 10/03/20 09:30 Creatinine 3.1 mg/dL (0.6-1.2) H 10/03/20 09:30 Estimated GFR 17 ml/min 10/03/20 09:30 BUN/Creatinine Ratio 9 % 10/03/20 09:30 Glucose 219 mg/dL (65-100) H 10/03/20 09:30 POC Glucose 219 mg/dL (70-105) H 10/03/20 10:37 Lactic Acid 1.10 mmol/L (0.7-2.0) 10/01/20 16:16 Calcium 8.4 mg/dL (8.4-10.2) 10/03/20 09:30 Ferritin 1926.0 ng/mL (10.0-200.0) H 10/03/20 09:30 Total Bilirubin 0.50 mg/dL (0.1-1.2) 10/03/20 09:30 AST 26 units/L (5-40) 10/03/20 09:30 ALT 10 units/L (7-56) 10/03/20 09:30 Alkaline Phosphatase 48 units/L (35-129) 10/03/20 09:30 Ammonia 20.0 umol/L (25-60) L 10/01/20 11:39 Lactate Dehydrogenase 241 units/L (91-180) H 10/03/20 09:30 Total Creatine Kinase 54 units/L (30-135) 10/01/20 11:39 C-Reactive Protein 2.70 mg/dL (0.00-1.30) H 10/03/20 09:30 Total Protein 6.1 g/dL (6.3-8.2) L 10/03/20 09:30 Albumin 2.9 g/dL (3.9-5) L 10/03/20 09:30 Albumin/Globulin Ratio 0.9 % 10/03/20 09:30 Procalcitonin 0.39 ng/mL (<0.15) 10/01/20 14:32 TSH 6.100 mlU/mL (0.270-4.200) H 10/01/20 11:39 Free T4 1.40 ng/dL (0.76-1.46) 10/03/20 09:30 Urine Color [place] (Yellow) 10/01/20 13:15 Urine Turbidity Cloudy (Clear) 10/01/20 13:15 Urine pH 7.0 (5.0-7.0) 10/01/20 13:15 Ur Specific [place] 1.012 (1.003-1.030) 10/01/20 13:15 Urine Protein >500 mg/dL (Negative) 10/01/20 13:15 Urine Glucose (UA) Neg mg/dL (Negative) 10/01/20 13:15 Urine Ketones Neg mg/dL (Negative) 10/01/20 13:15 Urine Blood Sm (Negative) 10/01/20 13:15 Urine Nitrite Neg (Negative) 10/01/20 13:15 Urine Bilirubin Neg (Negative) 10/01/20 13:15 Urine Urobilinogen < 2.0 mg/dL (<2.0) 10/01/20 13:15 Ur Leukocyte Esterase Lg (Negative) 10/01/20 13:15 Urine WBC (Auto) > 182.0 /HPF (0.0-6.0) H 10/01/20 13:15 Urine RBC (Auto) 18.0 /HPF (0.0-6.0) 10/01/20 13:15 U Epithel Cells (Auto) 4.0 /HPF (0-13.0) 10/01/20 13:15 Urine Bacteria (Auto) 1+ /HPF (Negative) 10/01/20 13:15 Urine WBC Clumps 2+ /HPF 10/01/20 13:15 Urine Mucus Few /HPF 10/01/20 13:15 Random Vancomycin 7.6 ug/mL (0-40.0) 10/03/20 09:30 Salicylates < 0.3 mg/dL (2.8-20.0) L 10/01/20 11:39 Urine Opiates Screen Negative 10/01/20 13:15 Urine Methadone Screen Negative 10/01/20 13:15 Acetaminophen 5.0 ug/mL (10.0-30.0) L 10/01/20 11:39 Ur Barbiturates Screen Negative 10/01/20 13:15 Ur Phencyclidine Scrn Negative 10/01/20 13:15 Ur Amphetamines Screen Negative 10/01/20 13:15 U Benzodiazepines Scrn Negative 10/01/20 13:15 Urine Cocaine Screen Negative 10/01/20 13:15 U Marijuana (THC) Screen Negative 10/01/20 13:15 Drugs of Abuse Note Disclamer 10/01/20 13:15 Coronavirus (PCR) Positive (Negative) A 10/02/20 Unknown Microbiology: Microbiology 10/01/20 11:39 Peripheral/Venous Blood Culture - Preliminary NO GROWTH AFTER 24 HOURS 10/01/20 11:50 Peripheral/Venous Blood Culture - Preliminary NO GROWTH AFTER 24 HOURS Barrientos/IV: Voiding Method Incontinent IV Catheter Type [Right INT / Saline Lock Forearm] IV Catheter Type [Left Upper dialysis access arm] Active Medications - Current Medications Current Medications: Generic Name Dose Route Start Last Admin Trade Name Freq PRN Reason Stop Dose Admin Acetaminophen 650 mg 10/01/20 15:50 Acetaminophen 325 Mg Tab PO Q4H PRN Pain MILD(1-3)/Fever >100.5/VERDE Albuterol 2.5 mg 10/01/20 15:50 Albuterol 2.5 Mg/3 Ml Nebu IH Q4HRT PRN Shortness Of Breath Aspirin 81 mg 10/01/20 17:00 10/03/20 09:03 Aspirin 81 Mg Tab Chew PO 81 mg QDAY BUTCH Administration Carvedilol 12.5 mg 10/01/20 22:00 10/03/20 09:03 Carvedilol 12.5 Mg Tab PO 12.5 mg BID BUTCH Administration Dextrose 50 ml 10/01/20 15:54 Dextrose 50% In Water (25gm) 50 Ml Syringe IV Q30MIN PRN Hypoglycemia Protocol Epoetin Jagjit 10,000 unit 10/02/20 09:19 10/02/20 20:20 Epoetin Jagjit 10,000 Unit/1 Ml Inj IV 10,000 unit ALANA PRN Administration hemodialysis Famotidine 20 mg 10/02/20 10:00 10/03/20 09:05 Famotidine 20 Mg Tab PO 20 mg DAILY BUTCH Administration Heparin Sodium (Porcine) 5,000 unit 10/01/20 22:00 10/03/20 09:04 Heparin 5,000 Unit/1 Ml Vial SUB-Q 5,000 unit Q12HR BUTCH Administration Hydralazine HCl 100 mg 10/01/20 18:00 10/03/20 08:14 Hydralazine 100 Mg Tab PO Not Given Q8HR BUTCH Hydralazine HCl 5 mg 10/01/20 22:31 10/01/20 22:57 Hydralazine 20 Mg/1 Ml Inj IV 5 mg Q4H PRN Administration Blood Pressure Cefepime HCl 1 gm in 100 mls @ 200 mls/hr 10/02/20 18:00 10/02/20 22:44 Cefepime/Ns 1 Gm/100 Ml IV 10/04/20 00:59 200 mls/hr QPM BUTCH Administration Sodium Chloride 100 mls @ 999 mls/hr 10/02/20 09:19 Nacl 0.9% IV ALANA PRN Hypotension Insulin Human Lispro 0 unit 10/01/20 16:30 10/03/20 09:02 Insulin Lispro 100 Unit/Ml Vial 3 Ml SUB-Q 2 unit ACHS BUTCH Administration Protocol Lacosamide 50 mg 10/01/20 22:00 10/03/20 09:06 Lacosamide 50 Mg Tab PO 50 mg Q12HR BUTCH Administration Levetiracetam 500 mg 10/01/20 22:00 10/03/20 09:04 Levetiracetam 500 Mg Tab PO 500 mg BID BUTCH Administration Losartan Potassium 50 mg 10/02/20 10:00 10/03/20 09:03 Losartan 50 Mg Tab PO Not Given QDAY BUTCH Megestrol Acetate 400 mg 10/02/20 10:00 10/03/20 09:04 Megestrol 400 Mg/10 Ml Oral Liqd PO 400 mg QDAY BUTCH Administration Methylprednisolone Sodium Succinate 40 mg 10/01/20 18:00 10/03/20 09:05 Methylprednisolone Sod Succinate 40 Mg/1 Ml Inj IV 40 mg Q8H BUTCH Administration Nifedipine 60 mg 10/01/20 22:00 10/03/20 09:05 Nifedipine Xl 60 Mg Tab PO 60 mg Q12HR BUTCH Administration Ondansetron HCl 4 mg 10/01/20 15:50 Ondansetron 4 Mg/2 Ml Inj IV Q8H PRN Nausea And Vomiting Sodium Chloride 10 ml 10/01/20 22:00 10/03/20 09:05 Sodium Chloride 0.9% 10 Ml Flush Syringe IV 10 ml BID BUTCH Administration Sodium Chloride 10 ml 10/01/20 15:50 10/02/20 09:48 Sodium Chloride 0.9% 10 Ml Flush Syringe IV 10 ml PRN PRN Administration LINE FLUSH Nutrition/Malnutrition Assess - Dietary Evaluation Nutrition/Malnutrition Findings: Nutrition Notes Start: 10/02/20 14:56 Freq: Status: Active Protocol: Document 10/02/20 14:56 AB (Rec: 10/02/20 15:13 AB [id number]) Co-Sign 10/02/20 14:56 MK Nutrition Notes Need for Assessment generated from: MD Order,pyrometer temperature regulator,MST Initial or Follow up Assessment Current Diagnosis CKD (stage V CKD),Coronary Artery Disease,Diabetes, Hyperlipidemia Other Pertinent Diagnosis Encephalopathy, UTI, GERD, pneu, seizure d/o Current Diet Pureed Labs/Tests Na 135 K 5.4 BUN 47 Cr 6.0 Pertinent Medications Reviewed Height 5 ft 5 in Weight 52 kg [place] Body Weight (kg) 56.81 BMI 19.1 Weight Status Underweight Subjective/Other Information MD consult for malnutrition and diet supplement diet order . check clerk for MST and skin risk. Per RN, pt ate 90% of lunch and has to be total assisted when feeding. Cristopher Score is 6. Swallow eval completed today, cleared for pureed and thin liquids. 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 No Is Patient Ambulatory and/or Out of Bed No [facility] 1190.208 Kcal/Kg value to use for calculation 32 Approximate Energy Requirements Using 1664 kcal/Kg Calculation Used for Recommendations Kcal/kg Additional Notes Protein: >62 g (>1.2 g/kg) Fluid: 1 ml/kcal Nutrition Intervention Change Diet Order: Add renal Goal #1 Meet at least 80% of energy and protein needs via PO. Goal #2 Wt gain Goal #3 Wound healing Anticipated Discharge Needs: Pureed renal diet Follow-Up By: 10/04/20 Additional Comments F/U for stable intakes, wt
[2020-10-03] MEDS ORDERED: DIVALPROEX DR 250 MG TAB PO SCH (12:00)
--- NOTE | 2020-10-03 15:26 | Progress Note ---
Assessment and Plan Cultures: Blood culture pending Urine culture pending COVID-19 positive A/P: 80-year-old female past medical history hypertension, diabetes, seizures, CHF, ESRD on HD, dementia admitted with COVID-19. #COVID-19 pneumonia: Patient presented with a day of symptoms, chest x-ray with diffuse bilateral infiltrates. Inflammatory markers elevated. #Acute hypoxemic respiratory failure: Likely secondary to COVID-19 infection. #Leukopenia: Likely secondary to COVID-19 #ESRD on HD: Renally adjust medications, not a candidate for remdesivir #UTI: Significant pyuria, urine cultures currently negative. Patient unable to say if she has symptoms due to altered mental status. #Acute encephalopathy Recs: -Continue steroids per primary, complete 10 days. -Not a candidate for remdesivir. -Obtain daily inflammatory markers - ferritin, Ddimer, CRP, LDH -Anticoagulation per hospital protocol -Proning if able -Continue cefepime renally dosed for UTI. Complete 3 days. Thank you for the consult, we will continue to follow. Bj Arroyo MD [facility] ([facility] O: [phone] F: [phone] Subjective Date of service: 10/03/20 Interval history: Afebrile with T-max of 100.2, remains leukopenic. Cultures remain negative. Objective - Exam Narrative Exam: Physical exam deferred due to PPE conservation strategy. Please refer to primary team's note. - Constitutional Vitals: Vital Signs Temp Pulse Resp BP Pulse Ox 100.2 F H 83 22 119/50 93 10/03/20 10:39 10/03/20 10:39 10/03/20 10:39 10/03/20 10:39 10/03/20 10:39 Temperature -Last 24 Hours Temperature 100.2 F Temperature 98.4 F Temperature 97.8 F Temperature 97.8 F Temperature 98.0 F Temperature 97.2 F - Labs CBC & Chem 7: 10/03/20 09:30 10/03/20 09:30 Labs: Abnormal lab results 10/02/20 10/02/20 10/03/20 Range/Units 16:34 22:20 08:50 WBC (4.5-11.0) K/mm3 RBC (3.65-5.03) M/mm3 Hgb (10.1-14.3) gm/dl Hct (30.3-42.9) % RDW (13.2-15.2) % Plt Count (140-440) K/mm3 Seg Neuts % (Manual) (40.0-70.0) % Lymphocytes % (Manual) (13.4-35.0) % Nucleated RBC % (0.0-0.9) % Lymphocytes # (Manual) (1.2-5.4) K/mm3 BUN (7-17) mg/dL Creatinine (0.6-1.2) mg/dL Glucose (65-100) mg/dL POC Glucose 243 H 178 H 191 H (70-105) mg/dL Ferritin (10.0-200.0) ng/mL Lactate Dehydrogenase (91-180) units/L C-Reactive Protein (0.00-1.30) mg/dL Total Protein (6.3-8.2) g/dL Albumin (3.9-5) g/dL 10/03/20 10/03/20 10/03/20 Range/Units 09:30 09:30 09:30 WBC 4.3 L (4.5-11.0) K/mm3 RBC 3.05 L (3.65-5.03) M/mm3 Hgb 9.6 L (10.1-14.3) gm/dl Hct 29.1 L (30.3-42.9) % RDW 17.7 H (13.2-15.2) % Plt Count 121 L (140-440) K/mm3 Seg Neuts % (Manual) 95.0 H (40.0-70.0) % Lymphocytes % (Manual) 1.0 L (13.4-35.0) % Nucleated RBC % 1.0 H (0.0-0.9) % Lymphocytes # (Manual) 0.0 L (1.2-5.4) K/mm3 BUN 27 H (7-17) mg/dL Creatinine 3.1 H (0.6-1.2) mg/dL Glucose 219 H (65-100) mg/dL POC Glucose (70-105) mg/dL Ferritin 1926.0 H (10.0-200.0) ng/mL Lactate Dehydrogenase 241 H (91-180) units/L C-Reactive Protein 2.70 H (0.00-1.30) mg/dL Total Protein 6.1 L (6.3-8.2) g/dL Albumin 2.9 L (3.9-5) g/dL 10/03/20 Range/Units 10:37 WBC (4.5-11.0) K/mm3 RBC (3.65-5.03) M/mm3 Hgb (10.1-14.3) gm/dl Hct (30.3-42.9) % RDW (13.2-15.2) % Plt Count (140-440) K/mm3 Seg Neuts % (Manual) (40.0-70.0) % Lymphocytes % (Manual) (13.4-35.0) % Nucleated RBC % (0.0-0.9) % Lymphocytes # (Manual) (1.2-5.4) K/mm3 BUN (7-17) mg/dL Creatinine (0.6-1.2) mg/dL Glucose (65-100) mg/dL POC Glucose 219 H (70-105) mg/dL Ferritin (10.0-200.0) ng/mL Lactate Dehydrogenase (91-180) units/L C-Reactive Protein (0.00-1.30) mg/dL Total Protein (6.3-8.2) g/dL Albumin (3.9-5) g/dL
--- NOTE | 2020-10-03 15:34 | Vascular Lab Report ---
DUPLEX DOPPLER LOWER EXTREMITY VEINS, BILATERAL INDICATION / CLINICAL INFORMATION: Covid 19. Lower extremity pain and swelling. TECHNIQUE: Duplex doppler imaging was performed through the veins of both lower extremities using venous tony apryl and other maneuvers. COMPARISON: 06/12/2020 FINDINGS: RIGHT COMMON FEMORAL VEIN: Negative. RIGHT FEMORAL VEIN: Negative. RIGHT POPLITEAL VEIN: Negative. RIGHT CALF VEINS: Negative. LEFT COMMON FEMORAL VEIN: Negative. LEFT FEMORAL VEIN: Negative. LEFT POPLITEAL VEIN: Negative. LEFT CALF VEINS: Negative. ADDITIONAL FINDINGS: None. IMPRESSION: 1. No sonographic evidence for DVT in either lower extremity. Signer Name: Hu Pelayo MD Signed: 10/03/2020 3:29 PM Workstation Name: [id number]
[2020-10-03] MEDS: VALPROIC ACID 250 MG/5 ML ORAL LIQD FEEDTUBE SCH ×2 (17:40→21:50)
[2020-10-03] MEDS: CEFEPIME/NS 1 GM/100 ML 1 GM/100 ML BAG IV SCH (17:42)
[2020-10-03] MEDS ORDERED: DIVALPROEX DR 500 MG TAB PO SCH (22:00)
[2020-10-04] MEDS: methylPREDNISolone Sod Succinate 40 MG/1 ML INJ IV SCH ×3 (02:03→18:15)
[2020-10-04] MEDS: hydrALAZINE 100 MG TAB PO SCH ×3 (05:50→22:38)
[2020-10-04] MEDS: VALPROIC ACID 250 MG/5 ML ORAL LIQD FEEDTUBE SCH ×2 (05:50→13:40)
[2020-10-04 06:17] LABS: Basophils % (Auto) 0.2 % (0.0-1.8); Hematocrit 24.9 % (30.3-42.9); Hemoglobin 8.3 gm/dl (10.1-14.3); Lymphocytes # (Auto) 0.2 K/mm3 (1.2-5.4); Lymphocytes % (Auto) 7.4 % (13.4-35.0); Mean Corpuscular HGB Conc 33 % (30-34); Mean Corpuscular Volume 96 fl (79-97); Monocytes # (Auto) 0.2 K/mm3 (0.0-0.8); Monocytes % (Auto) 5.5 % (0.0-7.3); Platelet Count 118 K/mm3 (140-440); Red Blood Count 2.61 M/mm3 (3.65-5.03); Red Cell Distribution Width 17.4 % (13.2-15.2)
[2020-10-04 06:27] LABS: Calcium 7.9 mg/dL (8.4-10.2)
[2020-10-04] MEDS: INSULIN LISPRO 100 UNIT/ML VIAL 3 mL SUB-Q SCH ×4 (09:26→22:35)
[2020-10-04] MEDS: MEGESTROL 400 MG/10 ML ORAL LIQD PO SCH (09:27)
[2020-10-04] MEDS: levETIRAcetam 500 MG TAB PO SCH ×2 (09:27→22:38)
[2020-10-04] MEDS: ASPIRIN 81 MG TAB CHEW PO SCH (09:27)
[2020-10-04] MEDS: NIFEdipine XL 60 MG TAB PO SCH ×2 (09:27→22:37)
[2020-10-04] MEDS: FAMOTIDINE 20 MG TAB PO SCH (09:27)
[2020-10-04] MEDS: LOSARTAN 50 MG TAB PO SCH (09:27)
[2020-10-04] MEDS: carvediloL 12.5 MG TAB PO SCH ×2 (09:27→22:37)
[2020-10-04] MEDS: HEPARIN 5,000 UNIT/1 ML VIAL SUB-Q SCH ×2 (09:27→22:38)
--- NOTE | 2020-10-04 11:49 | Progress Note ---
Assessment and Plan Assessment and plan: 1) Multifocal pneumonia Current Visit: Yes Status: Acute Plan to address problem: Pneumonia protocol: Chest x-ray, CBC, CMP, supplemental oxygen, pulse oximetry, nebulizer therapy, blood culture. (2) COVID-19 virus infection Current Visit: Yes Status: Acute Plan to address problem: Coronavirus protocol: Contact precautions, isolation precautions, IV antibiotic therapy, IV steroid therapy, prone positioning while in bed, pulmonary toilet. (3) End-stage renal disease on hemodialysis Current Visit: Yes Status: Acute Plan to address problem: Nephrology team consulted in ED, dialysis as per renal team, strict I's/O, avoid nephrotoxic agents. (4) Vascular dementia Current Visit: Yes Status: Acute Qualifiers: Dementia behavioral disturbance: without behavioral disturbance Qualified Code(s): F01.50 - Vascular dementia without behavioral disturbance Plan to address problem: Monitor (5) Seizure Current Visit: Yes Status: Acute Plan to address problem: Continue keppra Depakote 750mg BID EEG and MRI brain w/wo contrast still pending (6) Urinary tract infection Current Visit: Yes Status: Chronic Qualifiers: Encounter type: initial encounter Plan to address problem: Antibiotics (7) Accelerated hypertension Current Visit: No Status: Acute Plan to address problem: Monitor blood pressure every shift, continue medical management. (8) DVT prophylaxis Current Visit: Yes Status: Acute Plan to address problem: SCD to bilateral lower extremities while in bed, prophylactic anticoagulation. (9) Advance care planning Current Visit: Yes Status: Acute Plan to address problem: Disease education conducted, patient is full code, care plan discussed, progno sis discussed, patient family knowledge understanding and agreement with care plan, +30 minutes. History Interval history: No acute events noted overnight Awaiting MRI brain and EEG Hospitalist Physical - Physical exam Narrative exam: VITAL SIGNS: Reviewed. GENERAL: Awake HEAD: No signs of head trauma. EYES: Pupils are equal. Extraocular motions intact. MOUTH: Oropharynx is normal. NECK: No adenopathy, no JVD. CHEST: Chest with diminished breath sounds bilaterally. No wheezes, rales, or rhonchi. CARDIAC: normal S1 and S2, without murmurs, gallops, or rubs. ABDOMEN: Soft, non tender and non distended. No rebound or guarding, and no masses palpated. Bowel Sounds normal. MUSCULOSKELETAL: No edema NEUROLOGIC EXAM: Awake confused. No focal neurologic deficits SKIN: No obvious lesions - Constitutional Vitals: Temp Pulse Resp BP Pulse Ox 96.9 F L 68 19 118/48 100 10/04/20 10:53 10/04/20 10:53 10/04/20 10:53 10/04/20 10:53 10/04/20 10:53 Results - Labs CBC & Chem 7: 10/04/20 05:24 10/04/20 05:24 Labs: Laboratory Last Values WBC 3.1 K/mm3 (4.5-11.0) L 10/04/20 05:24 RBC 2.61 M/mm3 (3.65-5.03) L 10/04/20 05:24 Hgb 8.3 gm/dl (10.1-14.3) L 10/04/20 05:24 Hct 24.9 % (30.3-42.9) L 10/04/20 05:24 MCV 96 fl (79-97) 10/04/20 05:24 MCH 32 pg (28-32) 10/04/20 05:24 MCHC 33 % (30-34) 10/04/20 05:24 RDW 17.4 % (13.2-15.2) H 10/04/20 05:24 Plt Count 118 K/mm3 (140-440) L 10/04/20 05:24 Lymph % (Auto) 7.4 % (13.4-35.0) L 10/04/20 05:24 [place] % (Auto) 5.5 % (0.0-7.3) 10/04/20 05:24 Eos % (Auto) 0.0 % (0.0-4.3) 10/04/20 05:24 Baso % (Auto) 0.2 % (0.0-1.8) 10/04/20 05:24 Lymph # (Auto) 0.2 K/mm3 (1.2-5.4) L 10/04/20 05:24 [place] # (Auto) 0.2 K/mm3 (0.0-0.8) 10/04/20 05:24 Eos # (Auto) 0.0 K/mm3 (0.0-0.4) 10/04/20 05:24 Baso # (Auto) 0.0 K/mm3 (0.0-0.1) 10/04/20 05:24 Add Manual Diff Complete 10/03/20 09:30 Total Counted 100 10/03/20 09:30 Seg Neutrophils % 86.9 % (40.0-70.0) H 10/04/20 05:24 Seg Neuts % (Manual) 95.0 % (40.0-70.0) H 10/03/20 09:30 Lymphocytes % (Manual) 1.0 % (13.4-35.0) L 10/03/20 09:30 Monocytes % (Manual) 4.0 % (0.0-7.3) 10/03/20 09:30 Nucleated RBC % 1.0 % (0.0-0.9) H 10/03/20 09:30 Seg Neutrophils # 2.7 K/mm3 (1.8-7.7) 10/04/20 05:24 Seg Neutrophils # Man 4.1 K/mm3 (1.8-7.7) 10/03/20 09:30 Band Neutrophils # 0.0 K/mm3 10/03/20 09:30 Lymphocytes # (Manual) 0.0 K/mm3 (1.2-5.4) L 10/03/20 09:30 Abs React Lymphs (Man) 0.0 K/mm3 10/03/20 09:30 Monocytes # (Manual) 0.2 K/mm3 (0.0-0.8) 10/03/20 09:30 Eosinophils # (Manual) 0.0 K/mm3 (0.0-0.4) 10/03/20 09:30 Basophils # (Manual) 0.0 K/mm3 (0.0-0.1) 10/03/20 09:30 Metamyelocytes # 0.0 K/mm3 10/03/20 09:30 Myelocytes # 0.0 K/mm3 10/03/20 09:30 Promyelocytes # 0.0 K/mm3 10/03/20 09:30 Blast Cells # 0.0 K/mm3 10/03/20 09:30 WBC Morphology Not Reportable 10/03/20 09:30 Hypersegmented Neuts Not Reportable 10/03/20 09:30 Hyposegmented Neuts Not Reportable 10/03/20 09:30 Hypogranular Neuts Not Reportable 10/03/20 09:30 Smudge Cells Not Reportable 10/03/20 09:30 Toxic Granulation Not Reportable 10/03/20 09:30 Toxic Vacuolation Not Reportable 10/03/20 09:30 Dohle Bodies Not Reportable 10/03/20 09:30 Pelger-Huet Anomaly Not Reportable 10/03/20 09:30 Richard Rods Not Reportable 10/03/20 09:30 Platelet Estimate Consistent w auto 10/03/20 09:30 Clumped Platelets Not Reportable 10/03/20 09:30 Plt Clumps, EDTA Not Reportable 10/03/20 09:30 Large Platelets Not Reportable 10/03/20 09:30 Giant Platelets Not Reportable 10/03/20 09:30 Platelet Satelliting Not Reportable 10/03/20 09:30 Plt Morphology Comment Not Reportable 10/03/20 09:30 RBC Morphology Not Reportable 10/03/20 09:30 Dimorphic RBCs Not Reportable 10/03/20 09:30 Polychromasia Few 10/03/20 09:30 Hypochromasia Not Reportable 10/03/20 09:30 Poikilocytosis 1+ 10/03/20 09:30 Anisocytosis 1+ 10/03/20 09:30 Microcytosis Not Reportable 10/03/20 09:30 Macrocytosis Not Reportable 10/03/20 09:30 Spherocytes Not Reportable 10/03/20 09:30 Pappenheimer Bodies Not Reportable 10/03/20 09:30 Sickle Cells Not Reportable 10/03/20 09:30 Target Cells Few 10/03/20 09:30 Tear Drop Cells Not Reportable 10/03/20 09:30 Ovalocytes Few 10/03/20 09:30 Helmet Cells Not Reportable 10/03/20 09:30 Cavazos-Wingate Bodies Not Reportable 10/03/20 09:30 [place] Rings Not Reportable 10/03/20 09:30 Morena Cells Few 10/03/20 09:30 Bite Cells Not Reportable 10/03/20 09:30 Crenated Cell Not Reportable 10/03/20 09:30 Elliptocytes Not Reportable 10/03/20 09:30 Acanthocytes (Spur) Not Reportable 10/03/20 09:30 Rouleaux Not Reportable 10/03/20 09:30 Hemoglobin C Crystals Not Reportable 10/03/20 09:30 Schistocytes Not Reportable 10/03/20 09:30 Malaria parasites Not Reportable 10/03/20 09:30 Cristofer Bodies Not Reportable 10/03/20 09:30 Hem Pathologist Commnt No 10/03/20 09:30 D-Dimer 1609.74 ng/mlDDU (0-234) H 10/01/20 16:16 Sodium 134 mmol/L (137-145) L 10/04/20 05:24 Potassium 4.7 mmol/L (3.6-5.0) 10/04/20 05:24 Chloride 96.2 mmol/L (98-107) L 10/04/20 05:24 Carbon Dioxide 24 mmol/L (22-30) 10/04/20 05:24 Anion Gap 19 mmol/L 10/04/20 05:24 BUN 50 mg/dL (7-17) H 10/04/20 05:24 Creatinine 3.9 mg/dL (0.6-1.2) H 10/04/20 05:24 Estimated GFR 13 ml/min 10/04/20 05:24 BUN/Creatinine Ratio 13 % 10/04/20 05:24 Glucose 350 mg/dL (65-100) H 10/04/20 05:24 POC Glucose 289 mg/dL (70-105) H 10/04/20 10:53 Lactic Acid 1.10 mmol/L (0.7-2.0) 10/01/20 16:16 Calcium 7.9 mg/dL (8.4-10.2) L 10/04/20 05:24 Ferritin 1926.0 ng/mL (10.0-200.0) H 10/03/20 09:30 Total Bilirubin 0.50 mg/dL (0.1-1.2) 10/03/20 09:30 AST 26 units/L (5-40) 10/03/20 09:30 ALT 10 units/L (7-56) 10/03/20 09:30 Alkaline Phosphatase 48 units/L (35-129) 10/03/20 09:30 Ammonia 20.0 umol/L (25-60) L 10/01/20 11:39 Lactate Dehydrogenase 241 units/L (91-180) H 10/03/20 09:30 Total Creatine Kinase 54 units/L (30-135) 10/01/20 11:39 C-Reactive Protein 2.70 mg/dL (0.00-1.30) H 10/03/20 09:30 Total Protein 6.1 g/dL (6.3-8.2) L 10/03/20 09:30 Albumin 2.9 g/dL (3.9-5) L 10/03/20 09:30 Albumin/Globulin Ratio 0.9 % 10/03/20 09:30 Procalcitonin 0.52 ng/mL (<0.15) 10/03/20 09:30 TSH 6.100 mlU/mL (0.270-4.200) H 10/01/20 11:39 Free T4 1.40 ng/dL (0.76-1.46) 10/03/20 09:30 Urine Color [place] (Yellow) 10/01/20 13:15 Urine Turbidity Cloudy (Clear) 10/01/20 13:15 Urine pH 7.0 (5.0-7.0) 10/01/20 13:15 Ur Specific [place] 1.012 (1.003-1.030) 10/01/20 13:15 Urine Protein >500 mg/dL (Negative) 10/01/20 13:15 Urine Glucose (UA) Neg mg/dL (Negative) 10/01/20 13:15 Urine Ketones Neg mg/dL (Negative) 10/01/20 13:15 Urine Blood Sm (Negative) 10/01/20 13:15 Urine Nitrite Neg (Negative) 10/01/20 13:15 Urine Bilirubin Neg (Negative) 10/01/20 13:15 Urine Urobilinogen < 2.0 mg/dL (<2.0) 10/01/20 13:15 Ur Leukocyte Esterase Lg (Negative) 10/01/20 13:15 Urine WBC (Auto) > 182.0 /HPF (0.0-6.0) H 10/01/20 13:15 Urine RBC (Auto) 18.0 /HPF (0.0-6.0) 10/01/20 13:15 U Epithel Cells (Auto) 4.0 /HPF (0-13.0) 10/01/20 13:15 Urine Bacteria (Auto) 1+ /HPF (Negative) 10/01/20 13:15 Urine WBC Clumps 2+ /HPF 10/01/20 13:15 Urine Mucus Few /HPF 10/01/20 13:15 Random Vancomycin 7.6 ug/mL (0-40.0) 10/03/20 09:30 Salicylates < 0.3 mg/dL (2.8-20.0) L 10/01/20 11:39 Urine Opiates Screen Negative 10/01/20 13:15 Urine Methadone Screen Negative 10/01/20 13:15 Acetaminophen 5.0 ug/mL (10.0-30.0) L 10/01/20 11:39 Ur Barbiturates Screen Negative 10/01/20 13:15 Ur Phencyclidine Scrn Negative 10/01/20 13:15 Ur Amphetamines Screen Negative 10/01/20 13:15 U Benzodiazepines Scrn Negative 10/01/20 13:15 Urine Cocaine Screen Negative 10/01/20 13:15 U Marijuana (THC) Screen Negative 10/01/20 13:15 Drugs of Abuse Note Disclamer 10/01/20 13:15 Coronavirus (PCR) Positive (Negative) A 10/02/20 Unknown Microbiology: Microbiology 10/01/20 13:15 Urine,Catheterized - Straight Catheter Urine Culture - Final 10/01/20 11:39 Peripheral/Venous Blood Culture - Preliminary NO GROWTH AFTER 48 HOURS 10/01/20 11:50 Peripheral/Venous Blood Culture - Preliminary NO GROWTH AFTER 48 HOURS Barrientos/IV: Voiding Method Incontinent IV Catheter Type [Right INT / Saline Lock Forearm] IV Catheter Type [Left Upper dialysis access arm] Active Medications - Current Medications Current Medications: Generic Name Dose Route Start Last Admin Trade Name Freq PRN Reason Stop Dose Admin Acetaminophen 650 mg 10/01/20 15:50 Acetaminophen 325 Mg Tab PO Q4H PRN Pain MILD(1-3)/Fever >100.5/VERDE Albuterol 2.5 mg 10/01/20 15:50 Albuterol 2.5 Mg/3 Ml Nebu IH Q4HRT PRN Shortness Of Breath Aspirin 81 mg 10/01/20 17:00 10/04/20 09:27 Aspirin 81 Mg Tab Chew PO 81 mg QDAY BUTCH Administration Carvedilol 12.5 mg 10/01/20 22:00 10/04/20 09:27 Carvedilol 12.5 Mg Tab PO 12.5 mg BID BUTCH Administration Dextrose 50 ml 10/01/20 15:54 Dextrose 50% In Water (25gm) 50 Ml Syringe IV Q30MIN PRN Hypoglycemia Protocol Epoetin Jagjit 10,000 unit 10/02/20 09:19 10/02/20 20:20 Epoetin Jagjit 10,000 Unit/1 Ml Inj IV 10,000 unit ALANA PRN Administration hemodialysis Famotidine 20 mg 10/02/20 10:00 10/04/20 09:27 Famotidine 20 Mg Tab PO 20 mg DAILY BUTCH Administration Heparin Sodium (Porcine) 5,000 unit 10/01/20 22:00 10/04/20 09:27 Heparin 5,000 Unit/1 Ml Vial SUB-Q 5,000 unit Q12HR BUTCH Administration Hydralazine HCl 100 mg 10/01/20 18:00 10/04/20 05:50 Hydralazine 100 Mg Tab PO 100 mg Q8HR BUTCH Administration Hydralazine HCl 5 mg 10/01/20 22:31 10/01/20 22:57 Hydralazine 20 Mg/1 Ml Inj IV 5 mg Q4H PRN Administration Blood Pressure Sodium Chloride 100 mls @ 999 mls/hr 10/02/20 09:19 Nacl 0.9% IV ALANA PRN Hypotension Insulin Human Lispro 0 unit 10/01/20 16:30 10/04/20 10:59 Insulin Lispro 100 Unit/Ml Vial 3 Ml SUB-Q 4 unit ACHS BUTCH Administration Protocol Levetiracetam 500 mg 10/01/20 22:00 10/04/20 09:27 Levetiracetam 500 Mg Tab PO 500 mg BID BUTCH Administration Losartan Potassium 50 mg 10/02/20 10:00 10/04/20 09:27 Losartan 50 Mg Tab PO 50 mg QDAY BUTCH Administration Megestrol Acetate 400 mg 10/02/20 10:00 10/04/20 09:27 Megestrol 400 Mg/10 Ml Oral Liqd PO 400 mg QDAY BUTCH Administration Methylprednisolone Sodium Succinate 40 mg 10/01/20 18:00 10/04/20 09:29 Methylprednisolone Sod Succinate 40 Mg/1 Ml Inj IV 40 mg Q8H BUTCH Administration Nifedipine 60 mg 10/01/20 22:00 10/04/20 09:27 Nifedipine Xl 60 Mg Tab PO 60 mg Q12HR BUTCH Administration Ondansetron HCl 4 mg 10/01/20 15:50 Ondansetron 4 Mg/2 Ml Inj IV Q8H PRN Nausea And Vomiting Sodium Chloride 10 ml 10/01/20 22:00 10/04/20 09:28 Sodium Chloride 0.9% 10 Ml Flush Syringe IV 10 ml BID BUTCH Administration Sodium Chloride 10 ml 10/01/20 15:50 10/02/20 09:48 Sodium Chloride 0.9% 10 Ml Flush Syringe IV 10 ml PRN PRN Administration LINE FLUSH Valproic Acid 500 mg 10/03/20 16:00 10/04/20 05:50 Valproic Acid 250 Mg/5 Ml Oral Liqd FEEDTUBE 500 mg Q8HR BUTCH Administration Nutrition/Malnutrition Assess - Dietary Evaluation Nutrition/Malnutrition Findings: Nutrition Notes Start: 10/02/20 14:56 Freq: Status: Active Protocol: Document 10/04/20 10:36 AB (Rec: 10/04/20 10:58 AB [id number]) Co-Sign 10/04/20 10:36 MK Nutrition Notes Initial or Follow up Brief Note Current Diagnosis CKD (stage V CKD),Coronary Artery Disease,Diabetes, Hyperlipidemia Other Pertinent Diagnosis COVID-19 (+), Encephalopathy, UTI, GERD, pneu, seizure d/o Current Diet Mechanical soft Labs/Tests Na 134 BUN 50 Cr 3.9 POC BG 291 Pertinent Medications Solu-medrol Epoetin Jagjit Height 5 ft 5 in Weight 53 kg [place] Body Weight (kg) 56.81 BMI 19.4 Weight Status Underweight Subjective/Other Information F/U for stable intakes and wt. ST note from 10/03 approved pt for mechanical soft diet w/ chopped meats. Pt receiving HD today. Per RN, pt are 100% of breakfast and is feeding self . RN also stated that he has been hungry more often. Nutrition Intervention Change Diet Order: Add renal/consistent carb Revisit per MD consult or patient Sign Off request:
--- NOTE | 2020-10-04 12:09 | Progress Note ---
Assessment and Plan Impression * End-stage renal disease on maintenance hemodialysis * Altered mental status * Covid pneumonia * Hypertension * Diabetes * Hyperkalemia * Anemia secondary to ESRD Recommendations * Patient is scheduled for hemodialysis treatment for today * Continue dialysis on TTS schedule for now * Hyperkalemia has been corrected * Epogen with dialysis * Binders with meals * Adjust diet and meds for ESRD state * No IV, BP or venipuncture in her access arm * Management of pneumonia as per primary team Subjective Date of service: 10/04/20 Interval history: Patient is comfortable today. Scheduled for hemodialysis today . Preceding notes appreciated. Objective - Exam Narrative Exam: Physical exam deferred due to patient's Covid positive status - Vital Signs Vital signs: Vital Signs - 12hr 10/04/20 10/04/20 04:41 10:53 Temperature 98.7 F 96.9 F L Pulse Rate 68 Respiratory 20 19 Rate Blood Pressure 142/53 118/48 O2 Sat by Pulse 100 Oximetry - Lab 10/04/20 05:24 10/04/20 05:24 Most recent lab results Calcium 7.9 mg/dL (8.4-10.2) L 10/04/20 05:24 Medications & Allergies - Medications Allergies/Adverse Reactions: Allergies No Known Allergies Allergy (Unverified 02/02/18 15:43) Home Medications: Home Medications Medication Instructions Recorded Confirmed Last Taken Type Aspirin 81 mg PO DAILY 08/13/18 09/12/20 08/11/18 History Acetaminophen [Acetaminophen TAB] 650 mg PO Q4H PRN tablet 09/02/18 09/12/20 Unknown Rx Lispro Insulin [HumaLOG] 0 unit SUB-Q ACHS units 09/02/18 09/12/20 Unknown Rx ISOSORBIDE MONOnitrate [Imdur ER] 60 mg PO DAILY tablet 10/15/18 09/12/20 U nknown Rx carvediloL [Coreg] 12.5 mg PO BID tablet 10/15/18 09/12/20 Unknown Rx Losartan [Cozaar] 50 mg PO QDAY #30 tablet 11/01/18 09/12/20 Unknown Rx Lacosamide [Vimpat] 50 mg PO Q12HR #60 tablet 08/22/19 09/12/20 Unknown Rx Linagliptin [Tradjenta] 5 mg PO QDDIAB #30 tablet 08/22/19 09/12/20 Unknown Rx levETIRAcetam [Keppra TAB] 500 mg PO BID #60 tablet 08/22/19 09/12/20 Unknown Rx Famotidine [Pepcid] 20 mg PO DAILY #30 tablet 08/07/20 09/12/20 Unknown Rx NIFEdipine XL [Procardia Xl] 60 mg PO Q12HR #60 tablet 08/07/20 09/12/20 Unknown Rx hydrALAZINE [Apresoline TAB] 100 mg PO Q8HR #90 tab 08/07/20 09/12/20 Unknown Rx megestroL [Megestrol] 400 mg PO QDAY 30 Days #1 oral.liqd 08/07/20 09/12/20 Unknown Rx Active Medications: Generic Name Dose Route Start Last Admin Trade Name Freq PRN Reason Stop Dose Admin Acetaminophen 650 mg 10/01/20 15:50 Acetaminophen 325 Mg Tab PO Q4H PRN Pain MILD(1-3)/Fever >100.5/VERDE Albuterol 2.5 mg 10/01/20 15:50 Albuterol 2.5 Mg/3 Ml Nebu IH Q4HRT PRN Shortness Of Breath Aspirin 81 mg 10/01/20 17:00 10/04/20 09:27 Aspirin 81 Mg Tab Chew PO 81 mg QDAY BUTCH Administration Carvedilol 12.5 mg 10/01/20 22:00 10/04/20 09:27 Carvedilol 12.5 Mg Tab PO 12.5 mg BID BUTCH Administration Dextrose 50 ml 10/01/20 15:54 Dextrose 50% In Water (25gm) 50 Ml Syringe IV Q30MIN PRN Hypoglycemia Protocol Epoetin Jagjit 10,000 unit 10/02/20 09:19 10/02/20 20:20 Epoetin Jagjit 10,000 Unit/1 Ml Inj IV 10,000 unit ALANA PRN Administration hemodialysis Famotidine 20 mg 10/02/20 10:00 10/04/20 09:27 Famotidine 20 Mg Tab PO 20 mg DAILY BUTCH Administration Heparin Sodium (Porcine) 5,000 unit 10/01/20 22:00 10/04/20 09:27 Heparin 5,000 Unit/1 Ml Vial SUB-Q 5,000 unit Q12HR BUTCH Administration Hydralazine HCl 100 mg 10/01/20 18:00 10/04/20 05:50 Hydralazine 100 Mg Tab PO 100 mg Q8HR BUTCH Administration Hydralazine HCl 5 mg 10/01/20 22:31 10/01/20 22:57 Hydralazine 20 Mg/1 Ml Inj IV 5 mg Q4H PRN Administration Blood Pressure Sodium Chloride 100 mls @ 999 mls/hr 10/02/20 09:19 Nacl 0.9% IV ALANA PRN Hypotension Insulin Human Lispro 0 unit 10/01/20 16:30 10/04/20 10:59 Insulin Lispro 100 Unit/Ml Vial 3 Ml SUB-Q 4 unit ACHS BUTCH Administration Protocol Levetiracetam 500 mg 10/01/20 22:00 10/04/20 09:27 Levetiracetam 500 Mg Tab PO 500 mg BID BUTCH Administration Losartan Potassium 50 mg 10/02/20 10:00 10/04/20 09:27 Losartan 50 Mg Tab PO 50 mg QDAY BUTCH Administration Megestrol Acetate 400 mg 10/02/20 10:00 10/04/20 09:27 Megestrol 400 Mg/10 Ml Oral Liqd PO 400 mg QDAY BUTCH Administration Methylprednisolone Sodium Succinate 40 mg 10/01/20 18:00 10/04/20 09:29 Methylprednisolone Sod Succinate 40 Mg/1 Ml Inj IV 40 mg Q8H BUTCH Administration Nifedipine 60 mg 10/01/20 22:00 10/04/20 09:27 Nifedipine Xl 60 Mg Tab PO 60 mg Q12HR BUTCH Administration Ondansetron HCl 4 mg 10/01/20 15:50 Ondansetron 4 Mg/2 Ml Inj IV Q8H PRN Nausea And Vomiting Sodium Chloride 10 ml 10/01/20 22:00 10/04/20 09:28 Sodium Chloride 0.9% 10 Ml Flush Syringe IV 10 ml BID BUTCH Administration Sodium Chloride 10 ml 10/01/20 15:50 10/02/20 09:48 Sodium Chloride 0.9% 10 Ml Flush Syringe IV 10 ml PRN PRN Administration LINE FLUSH Valproic Acid 500 mg 10/03/20 16:00 10/04/20 05:50 Valproic Acid 250 Mg/5 Ml Oral Liqd FEEDTUBE 500 mg Q8HR BUTCH Administration
--- NOTE | 2020-10-04 13:50 | Progress Note ---
Assessment and Plan Cultures: Blood culture pending Urine culture pending COVID-19 positive A/P: 80-year-old female past medical history hypertension, diabetes, seizures, CHF, ESRD on HD, dementia admitted with COVID-19. #COVID-19 pneumonia: Patient presented with a day of symptoms, chest x-ray with diffuse bilateral infiltrates. Inflammatory markers elevated. Dopplers negative. #Acute hypoxemic respiratory failure: Likely secondary to COVID-19 infection. #Leukopenia: Likely secondary to COVID-19 #ESRD on HD: Renally adjust medications, not a candidate for remdesivir #UTI: Significant pyuria, urine cultures currently negative. Patient unable to say if she has symptoms due to altered mental status. #Acute encephalopathy Recs: -Continue steroids per primary, complete 10 days. -Not a candidate for remdesivir. -Obtain daily inflammatory markers - ferritin, Ddimer, CRP, LDH -Anticoagulation per hospital protocol -Proning if able -Completed empiric cefepime for UTI. Thank you for the consult, we will continue to follow. Bj Arroyo MD [facility] ([facility] O: [phone] F: [phone] Subjective Date of service: 10/04/20 Interval history: Febrile yesterday afternoon, but afebrile since then. Remains leukopenic with white count 3.1. Cultures remain negative. Objective - Exam Narrative Exam: Physical exam deferred due to PPE conservation strategy. Please refer to primary team's note. - Constitutional Vitals: Vital Signs Temp Pulse Resp BP Pulse Ox 96.9 F L 73 19 105/45 100 10/04/20 13:02 10/04/20 13:30 10/04/20 13:02 10/04/20 13:30 10/04/20 10:53 Temperature -Last 24 Hours Temperature 96.9 F Temperature 96.9 F Temperature 98.7 F Temperature 98.8 F Temperature 100.9 F - Labs CBC & Chem 7: 10/04/20 05:24 10/04/20 05:24 Labs: Abnormal lab results 10/03/20 10/03/20 10/04/20 Range/Units 16:10 21:14 05:24 WBC 3.1 L (4.5-11.0) K/mm3 RBC 2.61 L (3.65-5.03) M/mm3 Hgb 8.3 L (10.1-14.3) gm/dl Hct 24.9 L (30.3-42.9) % RDW 17.4 H (13.2-15.2) % Plt Count 118 L (140-440) K/mm3 Lymph % (Auto) 7.4 L (13.4-35.0) % Lymph # (Auto) 0.2 L (1.2-5.4) K/mm3 Seg Neutrophils % 86.9 H (40.0-70.0) % Sodium (137-145) mmol/L Chloride (98-107) mmol/L BUN (7-17) mg/dL Creatinine (0.6-1.2) mg/dL Glucose (65-100) mg/dL POC Glucose 322 H 350 H (70-105) mg/dL Calcium (8.4-10.2) mg/dL 10/04/20 10/04/20 10/04/20 Range/Units 05:24 07:58 10:53 WBC (4.5-11.0) K/mm3 RBC (3.65-5.03) M/mm3 Hgb (10.1-14.3) gm/dl Hct (30.3-42.9) % RDW (13.2-15.2) % Plt Count (140-440) K/mm3 Lymph % (Auto) (13.4-35.0) % Lymph # (Auto) (1.2-5.4) K/mm3 Seg Neutrophils % (40.0-70.0) % Sodium 134 L (137-145) mmol/L Chloride 96.2 L (98-107) mmol/L BUN 50 H (7-17) mg/dL Creatinine 3.9 H (0.6-1.2) mg/dL Glucose 350 H (65-100) mg/dL POC Glucose 291 H 289 H (70-105) mg/dL Calcium 7.9 L (8.4-10.2) mg/dL
[2020-10-05] MEDS: VALPROIC ACID 250 MG/5 ML ORAL LIQD PO SCH ×4 (00:52→23:03)
[2020-10-05] MEDS: VALPROIC ACID 250 MG/5 ML ORAL LIQD FEEDTUBE SCH (00:54)
[2020-10-05] MEDS: methylPREDNISolone Sod Succinate 40 MG/1 ML INJ IV SCH ×3 (02:37→19:36)
[2020-10-05] MEDS: hydrALAZINE 100 MG TAB PO SCH ×2 (06:45→15:07)
[2020-10-05] MEDS: INSULIN LISPRO 100 UNIT/ML VIAL 3 mL SUB-Q SCH ×4 (09:14→23:03)
--- NOTE | 2020-10-05 09:32 | Progress Note ---
Assessment and Plan Impression * End-stage renal disease on maintenance hemodialysis * Altered mental status * Covid pneumonia * Hypertension * Diabetes * Hyperkalemia * Anemia secondary to ESRD Recommendations * Patient had uneventful hemodialysis yesterday. Discussed with dialysis nurse. * Continue dialysis on TTS schedule for now * Hyperkalemia has been corrected * Epogen with dialysis * Binders with meals * Adjust diet and meds for ESRD state * No IV, BP or venipuncture in her access arm * Management of pneumonia as per primary team Subjective Date of service: 10/05/20 Interval history: Patient had uneventful hemodialysis yesterday. She is currently comfortable. Preceding notes appreciated. Objective - Exam Narrative Exam: Physical exam deferred due to patient's Covid positive status - Vital Signs Vital signs: Vital Signs - 12hr 10/04/20 10/04/20 10/04/20 22:16 22:19 22:23 Temperature 99.1 F Pulse Rate 74 78 Respiratory 18 Rate Blood Pressure Blood Pressure 160/55 [Right] O2 Sat by Pulse 88 91 Oximetry 10/04/20 10/04/20 10/05/20 22:37 23:00 05:03 Temperature 98.8 F Pulse Rate 78 73 Respiratory 20 20 Rate Blood Pressure 160/55 167/58 Blood Pressure [Right] O2 Sat by Pulse 97 Oximetry - Lab 10/04/20 05:24 10/04/20 05:24 Most recent lab results Calcium 7.9 mg/dL (8.4-10.2) L 10/04/20 05:24 Medications & Allergies - Medications Allergies/Adverse Reactions: Allergies No Known Allergies Allergy (Unverified 02/02/18 15:43) Home Medications: Home Medications Medication Instructions Recorded Confirmed Last Taken Type Aspirin 81 mg PO DAILY 08/13/18 09/12/20 08/11/18 History Acetaminophen [Acetaminophen TAB] 650 mg PO Q4H PRN tablet 09/02/18 09/12/20 Unknown Rx Lispro Insulin [HumaLOG] 0 unit SUB-Q ACHS units 09/02/18 09/12/20 Unknown Rx ISOSORBIDE MONOnitrate [Imdur ER] 60 mg PO DAILY tablet 10/15/18 09/12/20 Unknown Rx carvediloL [Coreg] 12.5 mg PO BID tablet 10/15/18 09/12/20 Unknown Rx Losartan [Cozaar] 50 mg PO QDAY #30 tablet 11/01/18 09/12/20 Unknown Rx Lacosamide [Vimpat] 50 mg PO Q12HR #60 tablet 08/22/19 09/12/20 Unknown Rx Linagliptin [Tradjenta] 5 mg PO QDDIAB #30 tablet 08/22/19 09/12/20 Unknown Rx levETIRAcetam [Keppra TAB] 500 mg PO BID #60 tablet 08/22/19 09/12/20 Unknown Rx Famotidine [Pepcid] 20 mg PO DAILY #30 tablet 08/07/20 09/12/20 Unknown Rx NIFEdipine XL [Procardia Xl] 60 mg PO Q12HR #60 tablet 08/07/20 09/12/20 Unknown Rx hydrALAZINE [Apresoline TAB] 100 mg PO Q8HR #90 tab 08/07/20 09/12/20 Unknown Rx megestroL [Megestrol] 400 mg PO QDAY 30 Days #1 oral.liqd 08/07/20 09/12/20 Unknown Rx Active Medications: Generic Name Dose Route Start Last Admin Trade Name Freq PRN Reason Stop Dose Admin Acetaminophen 650 mg 10/01/20 15:50 Acetaminophen 325 Mg Tab PO Q4H PRN Pain MILD(1-3)/Fever >100.5/VERDE Albuterol 2.5 mg 10/01/20 15:50 Albuterol 2.5 Mg/3 Ml Nebu IH Q4HRT PRN Shortness Of Breath Aspirin 81 mg 10/01/20 17:00 10/04/20 09:27 Aspirin 81 Mg Tab Chew PO 81 mg QDAY BUTCH Administration Carvedilol 12.5 mg 10/01/20 22:00 10/04/20 22:37 Carvedilol 12.5 Mg Tab PO 12.5 mg BID BUTCH Administration Dextrose 50 ml 10/01/20 15:54 Dextrose 50% In Water (25gm) 50 Ml Syringe IV Q30MIN PRN Hypoglycemia Protocol Epoetin Jagjit 10,000 unit 10/02/20 09:19 10/02/20 20:20 Epoetin Jagjit 10,000 Unit/1 Ml Inj IV 10,000 unit ALANA PRN Administration hemodialysis Famotidine 20 mg 10/02/20 10:00 10/04/20 09:27 Famotidine 20 Mg Tab PO 20 mg DAILY BUTCH Administration Heparin Sodium (Porcine) 5,000 unit 10/01/20 22:00 10/04/20 22:38 Heparin 5,000 Unit/1 Ml Vial SUB-Q 5,000 unit Q12HR BUTCH Administration Hydralazine HCl 100 mg 10/01/20 18:00 10/05/20 06:45 Hydralazine 100 Mg Tab PO 100 mg Q8HR BUTCH Administration Hydralazine HCl 5 mg 10/01/20 22:31 10/01/20 22:57 Hydralazine 20 Mg/1 Ml Inj IV 5 mg Q4H PRN Administration Blood Pressure Sodium Chloride 100 mls @ 999 mls/hr 10/02/20 09:19 Nacl 0.9% IV ALANA PRN Hypotension Insulin Glargine 20 units 10/05/20 10:00 Insulin Glargine 100 Units/Ml SUB-Q QAM [facility] Insulin Human Lispro 0 unit 10/01/20 16:30 10/05/20 09:14 Insulin Lispro 100 Unit/Ml Vial 3 Ml SUB-Q Not Given ACHS [facility] Protocol Levetiracetam 500 mg 10/01/20 22:00 10/04/20 22:38 Levetiracetam 500 Mg Tab PO 500 mg BID BUTCH Administration Losartan Potassium 50 mg 10/02/20 10:00 10/04/20 09:27 Losartan 50 Mg Tab PO 50 mg QDAY [facility] Administration Megestrol Acetate 400 mg 10/02/20 10:00 10/04/20 09:27 Megestrol 400 Mg/10 Ml Oral Liqd PO 400 mg QDAY BUTCH Administration Methylprednisolone Sodium Succinate 40 mg 10/01/20 18:00 10/05/20 02:37 Methylprednisolone Sod Succinate 40 Mg/1 Ml Inj IV 40 mg Q8H BUTCH Administration Nifedipine 60 mg 10/01/20 22:00 10/04/20 22:37 Nifedipine Xl 60 Mg Tab PO 60 mg Q12HR BUTCH Administration Ondansetron HCl 4 mg 10/01/20 15:50 Ondansetron 4 Mg/2 Ml Inj IV Q8H PRN Nausea And Vomiting Sodium Chloride 10 ml 10/01/20 22:00 10/04/20 22:37 Sodium Chloride 0.9% 10 Ml Flush Syringe IV 10 ml BID BUTCH Administration Sodium Chloride 10 ml 10/01/20 15:50 10/02/20 09:48 Sodium Chloride 0.9% 10 Ml Flush Syringe IV 10 ml PRN PRN Administration LINE FLUSH Valproic Acid 500 mg 10/04/20 23:45 10/05/20 06:45 Valproic Acid 250 Mg/5 Ml Oral Liqd PO 500 mg Q8HR BUTCH Administration
--- NOTE | 2020-10-05 10:55 | Magnetic Resonance Report ---
NONENHANCED MR SCAN OF THE BRAIN: INDICATION / CLINICAL INFORMATION: Seizure. TECHNIQUE: Multiplanar, multisequence MR images of the brain obtained. COMPARISON: CT scan of the head from 10/01/2020 and MR scan of the brain from 08/16/2019 FINDINGS: BRAIN / INTRACRANIAL CONTENTS: No acute ischemia, acute hemorrhage, mass effect, midline shift, or hy drocephalus. Confluent periventricular and deep hemispheric white matter lesions ([place] 3) due to chronic small vessel disease; these have progressed since the last MRI scan; in addition, new focal s ubcortical white matter lesion in the right inferior frontal gyrus; subtle chronic lacunae in the bas al ganglia; these findings remain unchanged Volume loss is very vermis; focal white matter lesions in the cerebellar hemispheres Since the last MRI scan, further volume loss in the body of the corpus callosum increased T2 signal i ntensity corpus callosum; No MR findings to suggest demyelination in the corpus callosum CRANIOCERVICAL JUNCTION: No significant abnormality. VASCULAR FLOW-VOIDS: No significant abnormality. ORBITS: No significant abnormality of visualized orbits. SINUSES / MASTOIDS: Mucosal thickening in the left sphenoid sinus ADDITIONAL FINDINGS: None. IMPRESSION: 1. No acute focal parenchymal lesion in the brain Since the last MRI scan, progressing white matter changes due to chronic small vessel disease; furthe r loss of volume in the body of corpus callosum since the last MRI scan Signer Name: Marcelino Toribio MD Signed: 10/05/2020 10:51 AM Workstation Name: [id number]
--- NOTE | 2020-10-05 11:01 | Progress Note ---
Assessment and Plan Assessment and plan: 1) Multifocal pneumonia Current Visit: Yes Status: Acute Plan to address problem: Pneumonia protocol: Chest x-ray, CBC, CMP, supplemental oxygen, pulse oximetry, nebulizer therapy, blood culture. (2) COVID-19 virus infection Current Visit: Yes Status: Acute Plan to address problem: Coronavirus protocol: Contact precautions, isolation precautions, IV antibiotic therapy, IV steroid therapy, prone positioning while in bed, pulmonary toilet. (3) End-stage renal disease on hemodialysis Current Visit: Yes Status: Acute Plan to address problem: Nephrology team consulted in ED, dialysis as per renal team, strict I's/O, avoid nephrotoxic agents. (4) Vascular dementia Current Visit: Yes Status: Acute Qualifiers: Dementia behavioral disturbance: without behavioral disturbance Qualified Code(s): F01.50 - Vascular dementia without behavioral disturbance Plan to address problem: Monitor (5) Seizure Current Visit: Yes Status: Acute Plan to address problem: Continue keppra Depakote 750mg BID EEG and MRI brain w/wo contrast still pending Neurology recs appreciated (6) Urinary tract infection Current Visit: Yes Status: Chronic Qualifiers: Encounter type: initial encounter Plan to address problem: Antibiotics completed (7) Accelerated hypertension Current Visit: No Status: Acute Plan to address problem: Monitor blood pressure every shift, continue medical management. (8) DVT prophylaxis Current Visit: Yes Status: Acute Plan to address problem: SCD to bilateral lower extremities while in bed, prophylactic anticoagulation. (9) Advance care planning Current Visit: Yes Status: Acute Plan to address problem: Disease education conducted, patient is full code, care plan discussed, prognosis discussed, patient family knowledge understanding and agreement with care plan, +30 minutes. History Interval history: No acute events noted overnight Awaiting MRI brain and EEG Hospitalist Physical - Physical exam Narrative exam: VITAL SIGNS: Reviewed. GENERAL: Awake HEAD: No signs of head trauma. EYES: Pupils are equal. Extraocular motions intact. MOUTH: Oropharynx is normal. NECK: No adenopathy, no JVD. CHEST: Chest with diminished breath sounds bilaterally. No wheezes, rales, or rhonchi. CARDIAC: normal S1 and S2, without murmurs, gallops, or rubs. ABDOMEN: Soft, non tender and non distended. No rebound or guarding, and no masses palpated. Bowel Sounds normal. MUSCULOSKELETAL: No edema NEUROLOGIC EXAM: Awake confused. No focal neurologic deficits SKIN: No obvious lesions - Constitutional Vitals: Temp Pulse Resp BP Pulse Ox 98.8 F 73 20 167/58 97 10/05/20 05:03 10/05/20 05:03 10/05/20 05:03 10/05/20 05:03 10/05/20 05:03 Results - Labs CBC & Chem 7: 10/04/20 05:24 10/04/20 05:24 Labs: Laboratory Last Values WBC 3.1 K/mm3 (4.5-11.0) L 10/04/20 05:24 RBC 2.61 M/mm3 (3.65-5.03) L 10/04/20 05:24 Hgb 8.3 gm/dl (10.1-14.3) L 10/04/20 05:24 Hct 24.9 % (30.3-42.9) L 10/04/20 05:24 MCV 96 fl (79-97) 10/04/20 05:24 MCH 32 pg (28-32) 10/04/20 05:24 MCHC 33 % (30-34) 10/04/20 05:24 RDW 17.4 % (13.2-15.2) H 10/04/20 05:24 Plt Count 118 K/mm3 (140-440) L 10/04/20 05:24 Lymph % (Auto) 7.4 % (13.4-35.0) L 10/04/20 05:24 [place] % (Auto) 5.5 % (0.0-7.3) 10/04/20 05:24 Eos % (Auto) 0.0 % (0.0-4.3) 10/04/20 05:24 Baso % (Auto) 0.2 % (0.0-1.8) 10/04/20 05:24 Lymph # (Auto) 0.2 K/mm3 (1.2-5.4) L 10/04/20 05:24 [place] # (Auto) 0.2 K/mm3 (0.0-0.8) 10/04/20 05:24 Eos # (Auto) 0.0 K/mm3 (0.0-0.4) 10/04/20 05:24 Baso # (Auto) 0.0 K/mm3 (0.0-0.1) 10/04/20 05:24 Add Manual Diff Complete 10/03/20 09:30 Total Counted 100 10/03/20 09:30 Seg Neutrophils % 86.9 % (40.0-70.0) H 10/04/20 05:24 Seg Neuts % (Manual) 95.0 % (40.0-70.0) H 10/03/20 09:30 Lymphocytes % (Manual) 1.0 % (13.4-35.0) L 10/03/20 09:30 Monocytes % (Manual) 4.0 % (0.0-7.3) 10/03/20 09:30 Nucleated RBC % 1.0 % (0.0-0.9) H 10/03/20 09:30 Seg Neutrophils # 2.7 K/mm3 (1.8-7.7) 10/04/20 05:24 Seg Neutrophils # Man 4.1 K/mm3 (1.8-7.7) 10/03/20 09:30 Band Neutrophils # 0.0 K/mm3 10/03/20 09:30 Lymphocytes # (Manual) 0.0 K/mm3 (1.2-5.4) L 10/03/20 09:30 Abs React Lymphs (Man) 0.0 K/mm3 10/03/20 09:30 Monocytes # (Manual) 0.2 K/mm3 (0.0-0.8) 10/03/20 09:30 Eosinophils # (Manual) 0.0 K/mm3 (0.0-0.4) 10/03/20 09:30 Basophils # (Manual) 0.0 K/mm3 (0.0-0.1) 10/03/20 09:30 Metamyelocytes # 0.0 K/mm3 10/03/20 09:30 Myelocytes # 0.0 K/mm3 10/03/20 09:30 Promyelocytes # 0.0 K/mm3 10/03/20 09:30 Blast Cells # 0.0 K/mm3 10/03/20 09:30 WBC Morphology Not Reportable 10/03/20 09:30 Hypersegmented Neuts Not Reportable 10/03/20 09:30 Hyposegmented Neuts Not Reportable 10/03/20 09:30 Hypogranular Neuts Not Reportable 10/03/20 09:30 Smudge Cells Not Reportable 10/03/20 09:30 Toxic Granulation Not Reportable 10/03/20 09:30 Toxic Vacuolation Not Reportable 10/03/20 09:30 Dohle Bodies Not Reportable 10/03/20 09:30 Pelger-Huet Anomaly Not Reportable 10/03/20 09:30 Richard Rods Not Reportable 10/03/20 09:30 Platelet Estimate Consistent w auto 10/03/20 09:30 Clumped Platelets Not Reportable 10/03/20 09:30 Plt Clumps, EDTA Not Reportable 10/03/20 09:30 Large Platelets Not Reportable 10/03/20 09:30 Giant Platelets Not Reportable 10/03/20 09:30 Platelet Satelliting Not Reportable 10/03/20 09:30 Plt Morphology Comment Not Reportable 10/03/20 09:30 RBC Morphology Not Reportable 10/03/20 09:30 Dimorphic RBCs Not Reportable 10/03/20 09:30 Polychromasia Few 10/03/20 09:30 Hypochromasia Not Reportable 10/03/20 09:30 Poikilocytosis 1+ 10/03/20 09:30 Anisocytosis 1+ 10/03/20 09:30 Microcytosis Not Reportable 10/03/20 09:30 Macrocytosis Not Reportable 10/03/20 09:30 Spherocytes Not Reportable 10/03/20 09:30 Pappenheimer Bodies Not Reportable 10/03/20 09:30 Sickle Cells Not Reportable 10/03/20 09:30 Target Cells Few 10/03/20 09:30 Tear Drop Cells Not Reportable 10/03/20 09:30 Ovalocytes Few 10/03/20 09:30 Helmet Cells Not Reportable 10/03/20 09:30 [place] Bodies Not Reportable 10/03/20 09:30 [place] Rings Not Reportable 10/03/20 09:30 Morena Cells Few 10/03/20 09:30 Bite Cells Not Reportable 10/03/20 09:30 Crenated Cell Not Reportable 10/03/20 09:30 Elliptocytes Not Reportable 10/03/20 09:30 Acanthocytes (Spur) Not Reportable 10/03/20 09:30 Rouleaux Not Reportable 10/03/20 09:30 Hemoglobin C Crystals Not Reportable 10/03/20 09:30 Schistocytes Not Reportable 10/03/20 09:30 Malaria parasites Not Reportable 10/03/20 09:30 Cristofer Bodies Not Reportable 10/03/20 09:30 Hem Pathologist Commnt No 10/03/20 09:30 D-Dimer 1609.74 ng/mlDDU (0-234) H 10/01/20 16:16 Sodium 134 mmol/L (137-145) L 10/04/20 05:24 Potassium 4.7 mmol/L (3.6-5.0) 10/04/20 05:24 Chloride 96.2 mmol/L (98-107) L 10/04/20 05:24 Carbon Dioxide 24 mmol/L (22-30) 10/04/20 05:24 Anion Gap 19 mmol/L 10/04/20 05:24 BUN 50 mg/dL (7-17) H 10/04/20 05:24 Creatinine 3.9 mg/dL (0.6-1.2) H 10/04/20 05:24 Estimated GFR 13 ml/min 10/04/20 05:24 BUN/Creatinine Ratio 13 % 10/04/20 05:24 Glucose 350 mg/dL (65-100) H 10/04/20 05:24 POC Glucose 328 mg/dL (70-105) H 10/05/20 07:41 Lactic Acid 1.10 mmol/L (0.7-2.0) 10/01/20 16:16 Calcium 7.9 mg/dL (8.4-10.2) L 10/04/20 05:24 Ferritin 1926.0 ng/mL (10.0-200.0) H 10/03/20 09:30 Total Bilirubin 0.50 mg/dL (0.1-1.2) 10/03/20 09:30 AST 26 units/L (5-40) 10/03/20 09:30 ALT 10 units/L (7-56) 10/03/20 09:30 Alkaline Phosphatase 48 units/L (35-129) 10/03/20 09:30 Ammonia 20.0 umol/L (25-60) L 10/01/20 11:39 Lactate Dehydrogenase 241 units/L (91-180) H 10/03/20 09:30 Total Creatine Kinase 54 units/L (30-135) 10/01/20 11:39 C-Reactive Protein 2.70 mg/dL (0.00-1.30) H 10/03/20 09:30 Total Protein 6.1 g/dL (6.3-8.2) L 10/03/20 09:30 Albumin 2.9 g/dL (3.9-5) L 10/03/20 09:30 Albumin/Globulin Ratio 0.9 % 10/03/20 09:30 Procalcitonin 0.52 ng/mL (<0.15) 10/03/20 09:30 TSH 6.100 mlU/mL (0.270-4.200) H 10/01/20 11:39 Free T4 1.40 ng/dL (0.76-1.46) 10/03/20 09:30 Urine Color [place] (Yellow) 10/01/20 13:15 Urine Turbidity Cloudy (Clear) 10/01/20 13:15 Urine pH 7.0 (5.0-7.0) 10/01/20 13:15 Ur Specific [place] 1.012 (1.003-1.030) 10/01/20 13:15 Urine Protein >500 mg/dL (Negative) 10/01/20 13:15 Urine Glucose (UA) Neg mg/dL (Negative) 10/01/20 13:15 Urine Ketones Neg mg/dL (Negative) 10/01/20 13:15 Urine Blood Sm (Negative) 10/01/20 13:15 Urine Nitrite Neg (Negative) 10/01/20 13:15 Urine Bilirubin Neg (Negative) 10/01/20 13:15 Urine Urobilinogen < 2.0 mg/dL (<2.0) 10/01/20 13:15 Ur Leukocyte Esterase Lg (Negative) 10/01/20 13:15 Urine WBC (Auto) > 182.0 /HPF (0.0-6.0) H 10/01/20 13:15 Urine RBC (Auto) 18.0 /HPF (0.0-6.0) 10/01/20 13:15 U Epithel Cells (Auto) 4.0 /HPF (0-13.0) 10/01/20 13:15 Urine Bacteria (Auto) 1+ /HPF (Negative) 10/01/20 13:15 Urine WBC Clumps 2+ /HPF 10/01/20 13:15 Urine Mucus Few /HPF 10/01/20 13:15 Random Vancomycin 7.6 ug/mL (0-40.0) 10/03/20 09:30 Salicylates < 0.3 mg/dL (2.8-20.0) L 10/01/20 11:39 Urine Opiates Screen Negative 10/01/20 13:15 Urine Methadone Screen Negative 10/01/20 13:15 Acetaminophen 5.0 ug/mL (10.0-30.0) L 10/01/20 11:39 Ur Barbiturates Screen Negative 10/01/20 13:15 Ur Phencyclidine Scrn Negative 10/01/20 13:15 Ur Amphetamines Screen Negative 10/01/20 13:15 U Benzodiazepines Scrn Negative 10/01/20 13:15 Urine Cocaine Screen Negative 10/01/20 13:15 U Marijuana (THC) Screen Negative 10/01/20 13:15 Drugs of Abuse Note Disclamer 10/01/20 13:15 Coronavirus (PCR) Positive (Negative) A 10/02/20 Unknown Microbiology: Microbiology 10/01/20 11:39 Peripheral/Venous Blood Culture - Preliminary NO GROWTH AFTER 72 HOURS 10/01/20 11:50 Peripheral/Venous Blood Culture - Preliminary NO GROWTH AFTER 72 HOURS Barrientos/IV: Voiding Method Incontinent IV Catheter Type [Right INT / Saline Lock Forearm] IV Catheter Type [Left Upper dialysis access arm] Active Medications - Current Medications Current Medications: Generic Name Dose Route Start Last Admin Trade Name Jasonq PRN Reason Stop Dose Admin Acetaminophen 650 mg 10/01/20 15:50 Acetaminophen 325 Mg Tab PO Q4H PRN Pain MILD(1-3)/Fever >100.5/VERDE Albuterol 2.5 mg 10/01/20 15:50 Albuterol 2.5 Mg/3 Ml Nebu IH Q4HRT PRN Shortness Of Breath Aspirin 81 mg 10/01/20 17:00 10/04/20 09:27 Aspirin 81 Mg Tab Chew PO 81 mg QDAY BUTCH Administration Carvedilol 12.5 mg 10/01/20 22:00 10/04/20 22:37 Carvedilol 12.5 Mg Tab PO 12.5 mg BID BUTCH Administration Dextrose 50 ml 10/01/20 15:54 Dextrose 50% In Water (25gm) 50 Ml Syringe IV Q30MIN PRN Hypoglycemia Protocol Epoetin Jagjit 10,000 unit 10/02/20 09:19 10/02/20 20:20 Epoetin Jagjit 10,000 Unit/1 Ml Inj IV 10,000 unit ALANA PRN Administration hemodialysis Famotidine 20 mg 10/02/20 10:00 10/04/20 09:27 Famotidine 20 Mg Tab PO 20 mg DAILY BUTCH Administration Heparin Sodium (Porcine) 5,000 unit 10/01/20 22:00 10/04/20 22:38 Heparin 5,000 Unit/1 Ml Vial SUB-Q 5,000 unit Q12HR BUTCH Administration Hydralazine HCl 100 mg 10/01/20 18:00 10/05/20 06:45 Hydralazine 100 Mg Tab PO 100 mg Q8HR BUTCH Administration Hydralazine HCl 5 mg 10/01/20 22:31 10/01/20 22:57 Hydralazine 20 Mg/1 Ml Inj IV 5 mg Q4H PRN Administration Blood Pressure Sodium Chloride 100 mls @ 999 mls/hr 10/02/20 09:19 Nacl 0.9% IV ALANA PRN Hypotension Insulin Glargine 20 units 10/05/20 10:00 Insulin Glargine 100 Units/Ml SUB-Q [facility] Insulin Human Lispro 0 unit 10/01/20 16:30 10/05/20 09:14 Insulin Lispro 100 Unit/Ml Vial 3 Ml SUB-Q Not Given [facility]S [facility] Protocol Levetiracetam 500 mg 10/01/20 22:00 10/04/20 22:38 Levetiracetam 500 Mg Tab PO 500 mg BID BUTCH Administration Losartan Potassium 50 mg 10/02/20 10:00 10/04/20 09:27 Losartan 50 Mg Tab PO 50 mg QDAY BUTCH Administration Megestrol Acetate 400 mg 10/02/20 10:00 10/04/20 09:27 Megestrol 400 Mg/10 Ml Oral Liqd PO 400 mg QDAY BUTCH Administration Methylprednisolone Sodium Succinate 40 mg 10/01/20 18:00 10/05/20 02:37 Methylprednisolone Sod Succinate 40 Mg/1 Ml Inj IV 40 mg Q8H BUTCH Administration Nifedipine 60 mg 10/01/20 22:00 10/04/20 22:37 Nifedipine Xl 60 Mg Tab PO 60 mg Q12HR BUTCH Administration Ondansetron HCl 4 mg 10/01/20 15:50 Ondansetron 4 Mg/2 Ml Inj IV Q8H PRN Nausea And Vomiting Sodium Chloride 10 ml 10/01/20 22:00 10/04/20 22:37 Sodium Chloride 0.9% 10 Ml Flush Syringe IV 10 ml BID BUTCH Administration Sodium Chloride 10 ml 10/01/20 15:50 10/02/20 09:48 Sodium Chloride 0.9% 10 Ml Flush Syringe IV 10 ml PRN PRN Administration LINE FLUSH Valproic Acid 500 mg 10/04/20 23:45 10/05/20 06:45 Valproic Acid 250 Mg/5 Ml Oral Liqd PO 500 mg Q8HR BUTCH Administration Nutrition/Malnutrition Assess - Dietary Evaluation Nutrition/Malnutrition Findings: Nutrition Notes Start: 10/02/20 14:56 Freq: Status: Active Protocol: Document 10/04/20 10:36 AB (Rec: 10/04/20 10:58 AB [id number]) Co-Sign 10/04/20 10:36 MK Nutrition Notes Initial or Follow up Brief Note Current Diagnosis CKD (stage V CKD),Coronary Artery Disease,Diabetes, Hyperlipidemia Other Pertinent Diagnosis COVID-19 (+), Encephalopathy, UTI, GERD, pneu, seizure d/o Current Diet Mechanical soft Labs/Tests Na 134 BUN 50 Cr 3.9 POC BG 291 Pertinent Medications Solu-medrol Epoetin Jagjit Height 5 ft 5 in Weight 53 kg [place] Body Weight (kg) 56.81 BMI 19.4 Weight Status Underweight Subjective/Other Information F/U for stable intakes and wt. ST note from 10/03 approved pt for mechanical soft diet w/ chopped meats. Pt receiving HD today. Per RN, pt are 100% of breakfast and is feeding self . RN also stated that she has been hungry more often. Nutrition Intervention Change Diet Order: Add renal/consistent carb Anticipated Discharge Needs: Renal/consistent carb + mechanical soft Follow-Up By: 10/10/20 Additional Comments F/U for stable intakes
[2020-10-05] MEDS: HEPARIN 5,000 UNIT/1 ML VIAL SUB-Q SCH ×2 (11:14→15:10)
[2020-10-05] MEDS: LOSARTAN 50 MG TAB PO SCH (11:14)
[2020-10-05] MEDS: FAMOTIDINE 20 MG TAB PO SCH (11:15)
[2020-10-05] MEDS: levETIRAcetam 500 MG TAB PO SCH ×2 (11:15→23:03)
[2020-10-05] MEDS: NIFEdipine XL 60 MG TAB PO SCH (11:15)
[2020-10-05] MEDS: MEGESTROL 400 MG/10 ML ORAL LIQD PO SCH (11:16)
[2020-10-05] MEDS: ASPIRIN 81 MG TAB CHEW PO SCH ×2 (11:16→16:38)
[2020-10-05] MEDS: INSULIN GLARGINE 100 UNITS/ML SUB-Q SCH ×2 (11:17→15:13)
[2020-10-05] MEDS: carvediloL 12.5 MG TAB PO SCH (11:25)
--- NOTE | 2020-10-05 14:11 | Progress Note ---
Assessment and Plan Cultures: Blood culture pending Urine culture pending COVID-19 positive A/P: 80-year-old female past medical history hypertension, diabetes, seizures, CHF, ESRD on HD, dementia admitted with COVID-19. #COVID-19 pneumonia: Patient presented with a day of symptoms, chest x-ray with diffuse bilateral infiltrates. Inflammatory markers elevated. Dopplers negative. #Acute hypoxemic respiratory failure: Likely secondary to COVID-19 infection. #Leukopenia: Likely secondary to COVID-19 #ESRD on HD: Renally adjust medications, not a candidate for remdesivir #UTI: Significant pyuria, urine cultures currently negative. Patient unable to say if she has symptoms due to altered mental status. Completed cefepime. #Acute encephalopathy Recs: -Continue steroids per primary, complete 10 days. -Not a candidate for remdesivir due to HD -Obtain daily inflammatory markers - ferritin, Ddimer, CRP, LDH -Anticoagulation per hospital protocol -Proning if able No further ID recommendations at this time. ID will sign off. Please call with any new questions. Bj Arroyo MD [facility] O: [phone] F: [phone] Subjective Date of service: 10/05/20 Interval history: Afebrile, no acute changes. Doing well. Imaging personally reviewed: Brain MRI: no focal lesion. Objective - Exam Narrative Exam: Physical exam deferred due to PPE conservation strategy. Please refer to primary team's note. - Constitutional Vitals: Vital Signs Temp Pulse Resp BP Pulse Ox 98.8 F 73 20 167/58 97 10/05/20 05:03 10/05/20 11:25 10/05/20 05:03 10/05/20 11:25 10/05/20 05:03 Temperature -Last 24 Hours Temperature 98.8 F Temperature 99.1 F Temperature 97.0 F - Labs CBC & Chem 7: 10/04/20 05:24 10/04/20 05:24 Labs: Abnormal lab results 10/04/20 10/04/20 10/05/20 Range/Units 17:28 21:47 07:41 POC Glucose 296 H 343 H 328 H (70-105) mg/dL 10/05/20 Range/Units 11:45 POC Glucose 320 H (70-105) mg/dL
[2020-10-05] MEDS ORDERED: HEPARIN 10,000 UNITS/10 ML VIAL IV PRN (18:35)
[2020-10-05] MEDS ORDERED: METOPROLOL TARTRATE 5 MG/5 ML INJ IV ONE (19:00)
[2020-10-05] MEDS ORDERED: HEPARIN/ 0.45% NACL DRIP 25,000 UNIT/500 ML BAG IV SCH (19:00)
[2020-10-05 20:53] LABS: Hematocrit 30.3 % (30.3-42.9); Hemoglobin 9.6 gm/dl (10.1-14.3)
[2020-10-05 21:04] LABS: INR 1.04 (0.87-1.13)
[2020-10-05 21:05] LABS: Partial Thromboplastin Time 37.6 Sec. (24.2-36.6)
[2020-10-05] MEDS: carvediloL 25 MG TAB PO SCH (23:03)
--- NOTE | 2020-10-06 03:50 | Hem/Onc Consultation ---
History of Present Illness - Reason for Consult Consult date: 10/04/20 - History of Present Illness heme consult televisit by Jose Juan 80yo AA woman with ESRd requiring HD, presumed dementia recently discharged from [facility] evak for confusion found to have mod severe anemia and Covid19 Ag pos had low plt 100's and low WBC 3-4-->improving over a few days receiving steroid pulse solumedrol PMH: seizure disorder on Vimpat and Keppra DM requiring insulin DATA reviewed below CXR: R hemidiaphragm elevated; diffuse pulm opacities Brain MRI: ischemic changes leg u/s neg for DVT IMPRESSION: pancytopenia partly due to meds (e.g. 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 MDS) is a possibility, but not a candidate for treatment even if found REC: no transfusions planned, no GCSf planned no intervention for abnormal blood counts periodic f/u blood counts while in hospital labs to include Hgb electrophoresis and SPEP Active Medications Aspirin (Aspirin 81 Mg Tab Chew) 81 mg PO QDAY [facility] Last Admin: 10/05/20 16:38 Dose: 81 mg Documented by: Carvedilol (Carvedilol 25 Mg Tab) 25 mg PO BID [facility] Last Admin: 10/05/20 23:03 Dose: 25 mg Documented by: Epoetin Jagjit (Epoetin Jagjit 10,000 Unit/1 Ml Inj) 10,000 unit IV ALANA PRN PRN Reason: hemodialysis Last Admin: 10/02/20 20:20 Dose: 10,000 unit Documented by: Famotidine (Famotidine 20 Mg Tab) 20 mg PO DAILY [facility] Last Admin: 10/05/20 11:15 Dose: 20 mg Documented by: Heparin Sodium (Porcine) (Heparin 10,000 Units/10 Ml Vial) 2,100 unit 40 unit/kg (2100 unit) IV Q6H PRN PRN Reason: Anti-Xa Assay < 0.1 units/ml Hydralazine HCl (Hydralazine 20 Mg/1 Ml Inj) 5 mg IV Q4H PRN PRN Reason: Blood Pressure Last Admin: 10/01/20 22:57 Dose: 5 mg Documented by: Sodium Chloride (Nacl 0.9%) 100 mls @ 999 mls/hr IV ALANA PRN PRN Reason: Hypotension Protocol Last Admin: 10/05/20 23:03 Dose: 750 units/hr, 15 mls/hr Documented by: Insulin Glargine (Insulin Glargine 100 Units/Ml) 20 units SUB-Q QAM [facility] Last Admin: 10/05/20 15:13 Dose: 20 units Documented by: Insulin Human Lispro (Insulin Lispro 100 Unit/Ml Vial 3 Ml) 0 unit SUB-Q ACHS [facility]; Protocol Last Admin: 10/05/20 23:03 Dose: 2 unit Documented by: Levetiracetam (Levetiracetam 500 Mg Tab) 500 mg PO BID [facility] Last Admin: 10/05/20 23:03 Dose: 500 mg Documented by: Losartan Potassium (Losartan 50 Mg Tab) 50 mg PO QDAY [facility] Last Admin: 10/05/20 11:14 Dose: 50 mg Documented by: Megestrol Acetate (Megestrol 400 Mg/10 Ml Oral Liqd) 400 mg PO QDAY [facility] Last Admin: 10/05/20 11:16 Dose: Not Given Documented by: Methylprednisolone Sodium Succinate (Methylprednisolone Sod Succinate 40 Mg/1 Ml Inj) 40 mg IV Q8H [facility] Last Admin: 10/05/20 19:36 Dose: 40 mg Documented by: Valproic Acid (Valproic Acid 250 Mg/5 Ml Oral Liqd) 500 mg PO Q8HR [facility] Last Admin: 10/05/20 23:03 Dose: 500 mg Documented by: Home Medications Medication Instructions Recorded Confirmed Last Taken Aspirin 81 mg PO DAILY 08/13/18 09/12/20 08/11/18 Previous Rx's Medication Instructions Recorded Last Taken Type Acetaminophen [Acetaminophen TAB] 650 mg PO Q4H PRN tablet 09/02/18 Unknown Rx Lispro Insulin [HumaLOG] 0 unit SUB-Q ACHS units 09/02/18 Unknown Rx ISOSORBIDE MONOnitrate [Imdur ER] 60 mg PO DAILY tablet 10/15/18 Unknown Rx carvediloL [Coreg] 12.5 mg PO BID tablet 10/15/18 Unknown Rx Losartan [Cozaar] 50 mg PO QDAY #30 tablet 11/01/18 Unknown Rx Lacosamide [Vimpat] 50 mg PO Q12HR #60 tablet 08/22/19 Unknown Rx Linagliptin [Tradjenta] 5 mg PO QDDIAB #30 tablet 08/22/19 Unknown Rx levETIRAcetam [Keppra TAB] 500 mg PO BID #60 tablet 08/22/19 Unknown Rx Famotidine [Pepcid] 20 mg PO DAILY #30 tablet 08/07/20 Unknown Rx NIFEdipine XL [Procardia Xl] 60 mg PO Q12HR #60 tablet 08/07/20 Unknown Rx hydrALAZINE [Apresoline TAB] 100 mg PO Q8HR #90 tab 08/07/20 Unknown Rx megestroL [Megestrol] 400 mg PO QDAY 30 Days #1 oral.liqd 08/07/20 Unknown Rx Laboratory Last Values WBC 3.1 K/mm3 (4.5-11.0) L 10/04/20 05:24 Hct 30.3 % (30.3-42.9) 10/05/20 20:39 MCV 96 fl (79-97) 10/04/20 05:24 Plt Count 101 K/mm3 (140-440) L 10/05/20 20:39 INR 1.04 (0.87-1.13) 10/05/20 20:39 APTT 37.6 Sec. (24.2-36.6) H 10/05/20 20:39 D-Dimer 1609.74 ng/mlDDU (0-234) H 10/01/20 16:16 Lactate Dehydrogenase 241 units/L (91-180) H 10/03/20 09:30 Coronavirus (PCR) Positive (Negative) A 10/02/20 Unknown Past History Past Medical History: diabetes, ESRD, heart failure, hypertension, hyperlipidemia, seizures Past Surgical History: Other (Dialysis access) Social history: single. denies: smoking, alcohol abuse, prescription drug abuse Family history: diabetes, hypertension Medications and Allergies Allergies Allergy/AdvReac Type Severity Reaction Status Date / Time No Known Allergies Allergy Unverified 02/02/18 15:43 Home Medications Medication Instructions Recorded Confirmed Last Taken Type Aspirin 81 mg PO DAILY 08/13/18 09/12/20 08/11/18 History Acetaminophen [Acetaminophen TAB] 650 mg PO Q4H PRN tablet 09/02/18 09/12/20 Unknown Rx Lispro Insulin [HumaLOG] 0 unit SUB-Q ACHS units 09/02/18 09/12/20 Unknown Rx ISOSORBIDE MONOnitrate [Imdur ER] 60 mg PO DAILY tablet 10/15/18 09/12/20 Unknown Rx carvediloL [Coreg] 12.5 mg PO BID tablet 10/15/18 09/12/20 Unknown Rx Losartan [Cozaar] 50 mg PO QDAY #30 tablet 11/01/18 09/12/20 Unknown Rx Lacosamide [Vimpat] 50 mg PO Q12HR #60 tablet 08/22/19 09/12/20 Unknown Rx Linagliptin [Tradjenta] 5 mg PO QDDIAB #30 tablet 08/22/19 09/12/20 Unknown Rx levETIRAcetam [Keppra TAB] 500 mg PO BID #60 tablet 08/22/19 09/12/20 Unknown Rx Famotidine [Pepcid] 20 mg PO DAILY #30 tablet 08/07/20 09/12/20 Unknown Rx NIFEdipine XL [Procardia Xl] 60 mg PO Q12HR #60 tablet 08/07/20 09/12/20 Unknown Rx hydrALAZINE [Apresoline TAB] 100 mg PO Q8HR #90 tab 08/07/20 09/12/20 Unknown Rx megestroL [Megestrol] 400 mg PO QDAY 30 Days #1 oral.liqd 08/07/20 09/12/20 Unknown Rx Active Meds: Active Medications Acetaminophen (Acetaminophen 325 Mg Tab) 650 mg PO Q4H PRN PRN Reason: Pain MILD(1-3)/Fever >100.5/VERDE Albuterol (Albuterol 2.5 Mg/3 Ml Nebu) 2.5 mg IH Q4HRT PRN PRN Reason: Shortness Of Breath Aspirin (Aspirin 81 Mg Tab Chew) 81 mg PO QDAY [facility] Last Admin: 10/05/20 16:38 Dose: 81 mg Documented by: Carvedilol (Carvedilol 25 Mg Tab) 25 mg PO BID [facility] Last Admin: 10/05/20 23:03 Dose: 25 mg Documented by: Dextrose (Dextrose 50% In Water (25gm) 50 Ml Syringe) 50 ml IV Q30MIN PRN; Protocol PRN Reason: Hypoglycemia Epoetin Jagjit (Epoetin Jagjit 10,000 Unit/1 Ml Inj) 10,000 unit IV ALANA PRN PRN Reason: hemodialysis Last Admin: 10/02/20 20:20 Dose: 10,000 unit Documented by: Famotidine (Famotidine 20 Mg Tab) 20 mg PO DAILY [facility] Last Admin: 10/05/20 11:15 Dose: 20 mg Documented by: Heparin Sodium (Porcine) (Heparin 10,000 Units/10 Ml Vial) 2,100 unit 40 unit/kg (2100 unit) IV Q6H PRN PRN Reason: Anti-Xa Assay < 0.1 units/ml Hydralazine HCl (Hydralazine 20 Mg/1 Ml Inj) 5 mg IV Q4H PRN PRN Reason: Blood Pressure Last Admin: 10/01/20 22:57 Dose: 5 mg Documented by: Sodium Chloride (Nacl 0.9%) 100 mls @ 999 mls/hr IV ALANA PRN PRN Reason: Hypotension Heparin Sodium/Sodium Chloride (Heparin/ 0.45% Nacl-25,000 Unit/500 Ml) 25,000 unit in 500 mls @ 15 mls/hr IV TITR [facility]; Protocol Last Admin: 10/05/20 23:03 Dose: 750 units/hr, 15 mls/hr Documented by: Insulin Glargine (Insulin Glargine 100 Units/Ml) 20 units SUB-Q QAM [facility] Last Admin: 10/05/20 15:13 Dose: 20 units Documented by: Insulin Human Lispro (Insulin Lispro 100 Unit/Ml Vial 3 Ml) 0 unit SUB-Q ACHS [facility]; Protocol Last Admin: 10/05/20 23:03 Dose: 2 unit Documented by: Levetiracetam (Levetiracetam 500 Mg Tab) 500 mg PO BID [facility] Last Admin: 10/05/20 23:03 Dose: 500 mg Documented by: Losartan Potassium (Losartan 50 Mg Tab) 50 mg PO QDAY [facility] Last Admin: 10/05/20 11:14 Dose: 50 mg Documented by: Megestrol Acetate (Megestrol 400 Mg/10 Ml Oral Liqd) 400 mg PO QDAY [facility] Last Admin: 10/05/20 11:16 Dose: Not Given Documented by: Methylprednisolone Sodium Succinate (Methylprednisolone Sod Succinate 40 Mg/1 Ml Inj) 40 mg IV Q8H [facility] Last Admin: 10/05/20 19:36 Dose: 40 mg Documented by: Ondansetron HCl (Ondansetron 4 Mg/2 Ml Inj) 4 mg IV Q8H PRN PRN Reason: Nausea And Vomiting Sodium Chloride (Sodium Chloride 0.9% 10 Ml Flush Syringe) 10 ml IV BID [facility] Last Admin: 10/05/20 23:04 Dose: 10 ml Documented by: Sodium Chloride (Sodium Chloride 0.9% 10 Ml Flush Syringe) 10 ml IV PRN PRN PRN Reason: LINE FLUSH Last Admin: 10/02/20 09:48 Dose: 10 ml Documented by: Valproic Acid (Valproic Acid 250 Mg/5 Ml Oral Liqd) 500 mg PO Q8HR [facility] Last Admin: 10/05/20 23:03 Dose: 500 mg Documented by: Exam - Constitutional Vitals: Last Vital Signs Temp 98.0 F 10/05/20 23:29 Pulse 108 H 10/05/20 23:29 Resp 18 10/05/20 23:29 BP 122/61 10/05/20 23:29 Pulse Ox 100 10/05/20 23:29 Results - Labs lab Results: Laboratory Results - last 24 hr 10/05/20 10/05/20 10/05/20 07:41 11:45 18:27 Hgb Hct Plt Count PT INR APTT POC Glucose 328 H 320 H 292 H 10/05/20 10/05/20 10/05/20 20:39 20:39 22:15 Hgb 9.6 L Hct 30.3 Plt Count 101 L PT 13.4 INR 1.04 APTT 37.6 H POC Glucose 173 H
[2020-10-06 06:27] LABS: Hematocrit 30.7 % (30.3-42.9); Mean Corpuscular HGB Conc 33 % (30-34); Mean Corpuscular Volume 96 fl (79-97); Platelet Count 102 K/mm3 (140-440); Red Blood Count 3.19 M/mm3 (3.65-5.03); Red Cell Distribution Width 17.7 % (13.2-15.2)
[2020-10-06] MEDS: VALPROIC ACID 250 MG/5 ML ORAL LIQD PO SCH ×3 (06:43→21:33)
[2020-10-06] MEDS: methylPREDNISolone Sod Succinate 40 MG/1 ML INJ IV SCH ×3 (06:43→21:32)
--- NOTE | 2020-10-06 10:11 | Consultation ---
History of Present Illness Consult date: 10/06/20 Requesting physician: APRIL QUICK Consult reason: other (AF with RVR) History of present illness: Pt is an 80 y.o. female with a hx of ESRD on HD, seen by our group during previous hospitalizations, who presented for eval of AMS and seizure-like activity. Pt is currently admitted for treatment of COVID-19 PNA. Cardiology has been consulted for eval and mgmt of new onset AF with RVR in the 100-130s. Pt denies any cardiac complaints. Echo 07/2019 - LA mod dilated, mild-mod MR, mild-mod TR, mild , mild concentric LVH, EF 65-70%, severe pulm HTN, RVSP 83 mmHg. Stress test 07/2018 - negative for ischemia, EF 66%. Past History Past Medical History: diabetes, ESRD, hypertension, hyperlipidemia, seizures Social history: single. denies: smoking, alcohol abuse Family history: diabetes, hypertension Medications and Allergies Allergies Allergy/AdvReac Type Severity Reaction Status Date / Time No Known Allergies Allergy Unverified 02/02/18 15:43 Home Medications Medication Instructions Recorded Confirmed Last Taken Type Aspirin 81 mg PO DAILY 08/13/18 09/12/20 08/11/18 History Acetaminophen [Acetaminophen TAB] 650 mg PO Q4H PRN tablet 09/02/18 09/12/20 Unknown Rx Lispro Insulin [HumaLOG] 0 unit SUB-Q ACHS units 09/02/18 09/12/20 Unknown Rx ISOSORBIDE MONOnitrate [Imdur ER] 60 mg PO DAILY tablet 10/15/18 09/12/20 Unknown Rx carvediloL [Coreg] 12.5 mg PO BID tablet 10/15/18 09/12/20 Unknown Rx Losartan [Cozaar] 50 mg PO QDAY #30 tablet 11/01/18 09/12/20 Unknown Rx Lacosamide [Vimpat] 50 mg PO Q12HR #60 tablet 08/22/19 09/12/20 Unknown Rx Linagliptin [Tradjenta] 5 mg PO QDDIAB #30 tablet 08/22/19 09/12/20 Unknown Rx levETIRAcetam [Keppra TAB] 500 mg PO BID #60 tablet 08/22/19 09/12/20 Unknown Rx Famotidine [Pepcid] 20 mg PO DAILY #30 tablet 08/07/20 09/12/20 Unknown Rx NIFEdipine XL [Procardia Xl] 60 mg PO Q12HR #60 tablet 08/07/20 09/12/20 Unknown Rx hydrALAZINE [Apresoline TAB] 100 mg PO Q8HR #90 tab 08/07/20 09/12/20 Unknown Rx megestroL [Megestrol] 400 mg PO QDAY 30 Days #1 oral.liqd 08/07/20 09/12/20 Unknown Rx Active Meds: Active Medications Acetaminophen (Acetaminophen 325 Mg Tab) 650 mg PO Q4H PRN PRN Reason: Pain MILD(1-3)/Fever >100.5/VERDE Albuterol (Albuterol 2.5 Mg/3 Ml Nebu) 2.5 mg IH Q4HRT PRN PRN Reason: Shortness Of Breath Aspirin (Aspirin 81 Mg Tab Chew) 81 mg PO QDAY [facility] Last Admin: 10/05/20 16:38 Dose: 81 mg Documented by: Carvedilol (Carvedilol 25 Mg Tab) 25 mg PO BID [facility] Last Admin: 10/05/20 23:03 Dose: 25 mg Documented by: Dextrose (Dextrose 50% In Water (25gm) 50 Ml Syringe) 50 ml IV Q30MIN PRN; Protocol PRN Reason: Hypoglycemia Epoetin Jagjit (Epoetin Jagjit 10,000 Unit/1 Ml Inj) 10,000 unit IV ALANA PRN PRN Reason: hemodialysis Last Admin: 10/02/20 20:20 Dose: 10,000 unit Documented by: Famotidine (Famotidine 20 Mg Tab) 20 mg PO DAILY [facility] Last Admin: 10/05/20 11:15 Dose: 20 mg Documented by: Heparin Sodium (Porcine) (Heparin 10,000 Units/10 Ml Vial) 2,100 unit 40 unit/kg (2100 unit) IV Q6H PRN PRN Reason: Anti-Xa Assay < 0.1 units/ml Hydralazine HCl (Hydralazine 20 Mg/1 Ml Inj) 5 mg IV Q4H PRN PRN Reason: Blood Pressure Last Admin: 10/01/20 22:57 Dose: 5 mg Documented by: Sodium Chloride (Nacl 0.9%) 100 mls @ 999 mls/hr IV ALANA PRN PRN Reason: Hypotension Heparin Sodium/Sodium Chloride (Heparin/ 0.45% Nacl-25,000 Unit/500 Ml) 25,000 unit in 500 mls @ 15 mls/hr IV TITR [facility]; Protocol Last Titration: 10/06/20 06:43 Dose: 750 units/hr, 15 mls/hr Documented by: Insulin Glargine (Insulin Glargine 100 Units/Ml) 20 units SUB-Q QAM [facility] Last Admin: 10/05/20 15:13 Dose: 20 units Documented by: Insulin Human Lispro (Insulin Lispro 100 Unit/Ml Vial 3 Ml) 0 unit SUB-Q ACHS [facility]; Protocol Last Admin: 10/05/20 23:03 Dose: 2 unit Documented by: Levetiracetam (Levetiracetam 500 Mg Tab) 500 mg PO BID [facility] Last Admin: 10/05/20 23:03 Dose: 500 mg Documented by: Losartan Potassium (Losartan 50 Mg Tab) 50 mg PO QDAY [facility] Last Admin: 10/05/20 11:14 Dose: 50 mg Documented by: Megestrol Acetate (Megestrol 400 Mg/10 Ml Oral Liqd) 400 mg PO QDAY [facility] Last Admin: 10/05/20 11:16 Dose: Not Given Documented by: Methylprednisolone Sodium Succinate (Methylprednisolone Sod Succinate 40 Mg/1 Ml Inj) 40 mg IV Q8H [facility] Last Admin: 10/06/20 06:43 Dose: 40 mg Documented by: Ondansetron HCl (Ondansetron 4 Mg/2 Ml Inj) 4 mg IV Q8H PRN PRN Reason: Nausea And Vomiting Sodium Chloride (Sodium Chloride 0.9% 10 Ml Flush Syringe) 10 ml IV BID [facility] Last Admin: 10/05/20 23:04 Dose: 10 ml Documented by: Sodium Chloride (Sodium Chloride 0.9% 10 Ml Flush Syringe) 10 ml IV PRN PRN PRN Reason: LINE FLUSH Last Admin: 10/02/20 09:48 Dose: 10 ml Documented by: Valproic Acid (Valproic Acid 250 Mg/5 Ml Oral Liqd) 500 mg PO Q8HR [facility] Last Admin: 10/06/20 06:43 Dose: 500 mg Documented by: Review of Systems Constitutional: no sweats Ears, nose, mouth and throat: no epistaxis, no bleeding gums Cardiovascular: shortness of breath, no chest pain, no palpitations, no edema, no syncope, no lightheadedness, no claudication Respiratory: no cough, no wheezing Gastrointestinal: no abdominal pain, no nausea, no vomiting Genitourinary Female: no flank pain Musculoskeletal: no neck stiffness, no neck pain Integumentary: no rash, no wounds Neurological: no head injury, no paralysis, no weakness, no parathesias, no numbness, no tingling, no syncope, no headaches Endocrine: no cold intolerance, no heat intolerance Hematologic/Lymphatic: no easy bruising, no easy bleeding Allergic/Immunologic: no urticaria Physical Examination Last Vital Signs Temp 98.1 F 10/06/20 03:46 Pulse 100 H 10/06/20 03:46 Resp 18 10/06/20 03:46 BP 106/56 10/06/20 03:46 Pulse Ox 99 10/06/20 03:46 Narrative exam: Exam deferred due to COVID-19 infection (exposure reduction and PPE conservation). Recommendations based on chart review and provider discussions. Results 10/06/20 05:56 10/04/20 05:24 Coagulation 10/05/20 Range/Units 20:39 PT 13.4 (12.2-14.9) Sec. INR 1.04 (0.87-1.13) APTT 37.6 H (24.2-36.6) Sec. CBC 10/05/20 10/06/20 Range/Units 20:39 05:56 WBC 4.6 (4.5-11.0) K/mm3 RBC 3.19 L (3.65-5.03) M/mm3 Hgb 9.6 L 10.0 L (10.1-14.3) gm/dl Hct 30.3 30.7 (30.3-42.9) % Plt Count 101 L 102 L (140-440) K/mm3 - Imaging and Cardiology Echo: report reviewed (07/2019 LA mod dilated, mild-mod MR, mild-mod TR, mild , mild concentric LVH, EF 65-70%, severe pulm HTN, RVSP 83 mmHg) EKG: report reviewed, image reviewed - EKG Interpretation EKG: no acute changes EKG interpretations - Telemetry EKG Rhythm: Atrial Fibrillation - EKG Sinus rhythms and dysrhythmias: sinus rhythm Assessment and Plan Will switch Coreg to Lopressor 25mg BID. May increase as BP permits for rate control. Will decrease Losartan accordingly. May start IV Amio gtt if no improvement in rate with Lopressor or BP is not able to tolerate. Initiate Eliquis. Will consider repeat echo when clinically stable/upon resolution of COVID-19 infection. Case reviewed in conjunction with Dr. Mckeon, who agrees with the assessment and plan of care. - Patient Problems (1) Pneumonia due to COVID-19 virus Current Visit: Yes Status: Acute (2) Atrial fibrillation with RVR Current Visit: Yes Status: Acute (3) Severe pulmonary hypertension Current Visit: Yes Status: Chronic (4) Mild aortic stenosis Current Visit: Yes Status: Chronic (5) End-stage renal disease on hemodialysis Current Visit: Yes Status: Chronic (6) Seizure Current Visit: Yes Status: Chronic (7) Elevated TSH Current Visit: Yes Status: Acute Plan to address problem: Mgmt per Primary (8) Hypertension Current Visit: Yes Status: Chronic Qualifiers: Hypertension type: essential hypertension Qualified Code(s): I10 - Essential (primary) hypertension (9) Hyperlipidemia Current Visit: Yes Status: Chronic Qualifiers: Hyperlipidemia type: mixed hyperlipidemia Qualified Code(s): E78.2 - Mixed hyperlipidemia (10) T2DM (type 2 diabetes mellitus) Current Visit: Yes Status: Chronic (11) Vascular dementia Current Visit: Yes Status: Chronic Qualifiers: Dementia behavioral disturbance: without behavioral disturbance Qualified Code(s): F01.50 - Vascular dementia without behavioral disturbance
--- NOTE | 2020-10-06 10:30 | Progress Note ---
Assessment and Plan Assessment and plan: 80 YO Female with HTN, DM, Seizure Disorder, HLD, Diastolic CHF, ESRD on HD(M,W,F), Vascular Dementia, Cerebral Atherosclerosis presents to emergency room after she was noted to have seizure-like activity after being discharged from [facility]. Patient was discharged on Depakote and Keppra. In the ER here, she was found to have metabolic encephalopathy, UTI, accelerated hypertension and pneumonia on chest x-ray. She was initiated on Pneumonia protocol and then admitted to the hospital. Hospital course Neurology was consulted for seizure episode. MRI brain and EEG advised. COVID- 19 test positive. Patient started on dexamethasone. ID consulted. Patient also on antibiotics for UTI. 10/05. Patients mental status has improved. MRI brain performed showed no acute abnormalities [this was done without contrast as patient has ESRD]. Overnight, patient had A. fib with RVR with rates in the 100-120s. Cardiology has been consulted. Beta-jason dose has been adjusted. Patient started on heparin drip 10/06. Heart rate up to 120's. Patient may need to be started on Cardizem drip however blood pressure is soft. To consider amiodarone. Awaiting cardiology evaluation. She denies any chest pain or palpitations this morning. Afebrile overnight. Plan --Multifocal pneumonia Secondary to Covid Completed treatment --COVID-19 virus infection Taper off steroids Continue isolation -- Seizure Continue keppra 5 mg twice daily Depakote 750mg BID MRI of the brain without contrast performed-acute changes not found Awaiting EEG Neurology recs appreciated ---Atrial fibrillation with RVR Carvedilol 25 mg twice daily Heart rate not well controlled-consider switching to Cardizem drip Awaiting cardiology evaluation. Started on heparin drip for elevated CHADVASc -- Urinary tract infection Antibiotics completed --Accelerated hypertension Continue current blood pressure medications-losartan and Coreg -- End-stage renal disease on hemodialysis Hemodialysis as scheduled --Diabetes mellitus Lantus and lispro --Vascular dementia Stable ---DVT prophylaxis SCD to bilateral lower extremities while in bed Heparin drip --Advance care planning Current Visit: Yes Status: Acute Plan to address problem: Case management on board-patient on waiting list at [facility] for temporary dialysis [facility] is willing to accept patient History Interval history: No acute events noted overnight MRI brain negative for any acute abnormality. Had atrial fibrillation with RVR with rates in the low 100's. Started on heparin drip. Increased coreg to 25mg BID Cardiology consulted Hospitalist Physical - Physical exam Narrative exam: VITAL SIGNS: Reviewed. GENERAL: Awake HEAD: No signs of head trauma. EYES: Pupils are equal. Extraocular motions intact. MOUTH: Oropharynx is normal. NECK: No adenopathy, no JVD. CHEST: Chest with diminished breath sounds bilaterally. No wheezes, rales, or rhonchi. CARDIAC: normal S1 and S2, without murmurs, gallops, or rubs. ABDOMEN: Soft, non tender and non distended. No rebound or guarding, and no masses palpated. Bowel Sounds normal. MUSCULOSKELETAL: No edema NEUROLOGIC EXAM: Awake confused. No focal neurologic deficits SKIN: No obvious lesions - Constitutional Vitals: Temp Pulse Resp BP Pulse Ox 98.1 F 100 H 18 106/56 99 10/06/20 03:46 10/06/20 03:46 10/06/20 03:46 10/06/20 03:46 10/06/20 03:46 Results - Labs CBC & Chem 7: 10/06/20 05:56 10/04/20 05:24 Labs: Laboratory Last Values WBC 4.6 K/mm3 (4.5-11.0) 10/06/20 05:56 RBC 3.19 M/mm3 (3.65-5.03) L 10/06/20 05:56 Hgb 10.0 gm/dl (10.1-14.3) L 10/06/20 05:56 Hct 30.7 % (30.3-42.9) 10/06/20 05:56 MCV 96 fl (79-97) 10/06/20 05:56 MCH 31 pg (28-32) 10/06/20 05:56 MCHC 33 % (30-34) 10/06/20 05:56 RDW 17.7 % (13.2-15.2) H 10/06/20 05:56 Plt Count 102 K/mm3 (140-440) L 10/06/20 05:56 Lymph % (Auto) 7.4 % (13.4-35.0) L 10/04/20 05:24 [place]ardo % (Auto) 5.5 % (0.0-7.3) 10/04/20 05:24 Eos % (Auto) 0.0 % (0.0-4.3) 10/04/20 05:24 Baso % (Auto) 0.2 % (0.0-1.8) 10/04/20 05:24 Lymph # (Auto) 0.2 K/mm3 (1.2-5.4) L 10/04/20 05:24 F[place]ardo # (Auto) 0.2 K/mm3 (0.0-0.8) 10/04/20 05:24 Eos # (Auto) 0.0 K/mm3 (0.0-0.4) 10/04/20 05:24 Baso # (Auto) 0.0 K/mm3 (0.0-0.1) 10/04/20 05:24 Add Manual Diff Complete 10/03/20 09:30 Total Counted 100 10/03/20 09:30 Seg Neutrophils % 86.9 % (40.0-70.0) H 10/04/20 05:24 Seg Neuts % (Manual) 95.0 % (40.0-70.0) H 10/03/20 09:30 Lymphocytes % (Manual) 1.0 % (13.4-35.0) L 10/03/20 09:30 Monocytes % (Manual) 4.0 % (0.0-7.3) 10/03/20 09:30 Nucleated RBC % 1.0 % (0.0-0.9) H 10/03/20 09:30 Seg Neutrophils # 2.7 K/mm3 (1.8-7.7) 10/04/20 05:24 Seg Neutrophils # Man 4.1 K/mm3 (1.8-7.7) 10/03/20 09:30 Band Neutrophils # 0.0 K/mm3 10/03/20 09:30 Lymphocytes # (Manual) 0.0 K/mm3 (1.2-5.4) L 10/03/20 09:30 Abs React Lymphs (Man) 0.0 K/mm3 10/03/20 09:30 Monocytes # (Manual) 0.2 K/mm3 (0.0-0.8) 10/03/20 09:30 Eosinophils # (Manual) 0.0 K/mm3 (0.0-0.4) 10/03/20 09:30 Basophils # (Manual) 0.0 K/mm3 (0.0-0.1) 10/03/20 09:30 Metamyelocytes # 0.0 K/mm3 10/03/20 09:30 Myelocytes # 0.0 K/mm3 10/03/20 09:30 Promyelocytes # 0.0 K/mm3 10/03/20 09:30 Blast Cells # 0.0 K/mm3 10/03/20 09:30 WBC Morphology Not Reportable 10/03/20 09:30 Hypersegmented Neuts Not Reportable 10/03/20 09:30 Hyposegmented Neuts Not Reportable 10/03/20 09:30 Hypogranular Neuts Not Reportable 10/03/20 09:30 Smudge Cells Not Reportable 10/03/20 09:30 Toxic Granulation Not Reportable 10/03/20 09:30 Toxic Vacuolation Not Reportable 10/03/20 09:30 Dohle Bodies Not Reportable 10/03/20 09:30 Pelger-Huet Anomaly Not Reportable 10/03/20 09:30 Richard Rods Not Reportable 10/03/20 09:30 Platelet Estimate Consistent w auto 10/03/20 09:30 Clumped Platelets Not Reportable 10/03/20 09:30 Plt Clumps, EDTA Not Reportable 10/03/20 09:30 Large Platelets Not Reportable 10/03/20 09:30 Giant Platelets Not Reportable 10/03/20 09:30 Platelet Satelliting Not Reportable 10/03/20 09:30 Plt Morphology Comment Not Reportable 10/03/20 09:30 RBC Morphology Not Reportable 10/03/20 09:30 Dimorphic RBCs Not Reportable 10/03/20 09:30 Polychromasia Few 10/03/20 09:30 Hypochromasia Not Reportable 10/03/20 09:30 Poikilocytosis 1+ 10/03/20 09:30 Anisocytosis 1+ 10/03/20 09:30 Microcytosis Not Reportable 10/03/20 09:30 Macrocytosis Not Reportable 10/03/20 09:30 Spherocytes Not Reportable 10/03/20 09:30 Pappenheimer Bodies Not Reportable 10/03/20 09:30 Sickle Cells Not Reportable 10/03/20 09:30 Target Cells Few 10/03/20 09:30 Tear Drop Cells Not Reportable 10/03/20 09:30 Ovalocytes Few 10/03/20 09:30 Helmet Cells Not Reportable 10/03/20 09:30 [place] Bodies Not Reportable 10/03/20 09:30 [place] Rings Not Reportable 10/03/20 09:30 [place] Cells Few 10/03/20 09:30 Bite Cells Not Reportable 10/03/20 09:30 Crenated Cell Not Reportable 10/03/20 09:30 Elliptocytes Not Reportable 10/03/20 09:30 Acanthocytes (Spur) Not Reportable 10/03/20 09:30 Rouleaux Not Reportable 10/03/20 09:30 Hemoglobin C Crystals Not Reportable 10/03/20 09:30 Schistocytes Not Reportable 10/03/20 09:30 Malaria parasites Not Reportable 10/03/20 09:30 Cristofer Bodies Not Reportable 10/03/20 09:30 Hem Pathologist Commnt No 10/03/20 09:30 PT 13.4 Sec. (12.2-14.9) 10/05/20 20:39 INR 1.04 (0.87-1.13) 10/05/20 20:39 APTT 37.6 Sec. (24.2-36.6) H 10/05/20 20:39 D-Dimer 1609.74 ng/mlDDU (0-234) H 10/01/20 16:16 Heparin Anti-Xa Level 0.18 U.I./ml (0.3-0.7) L 10/06/20 05:56 Sodium 134 mmol/L (137-145) L 10/04/20 05:24 Potassium 4.7 mmol/L (3.6-5.0) 10/04/20 05:24 Chloride 96.2 mmol/L (98-107) L 10/04/20 05:24 Carbon Dioxide 24 mmol/L (22-30) 10/04/20 05:24 Anion Gap 19 mmol/L 10/04/20 05:24 BUN 50 mg/dL (7-17) H 10/04/20 05:24 Creatinine 3.9 mg/dL (0.6-1.2) H 10/04/20 05:24 Estimated GFR 13 ml/min 10/04/20 05:24 BUN/Creatinine Ratio 13 % 10/04/20 05:24 Glucose 350 mg/dL (65-100) H 10/04/20 05:24 POC Glucose 93 mg/dL (70-105) 10/06/20 08:34 Lactic Acid 1.10 mmol/L (0.7-2.0) 10/01/20 16:16 Calcium 7.9 mg/dL (8.4-10.2) L 10/04/20 05:24 Ferritin 1926.0 ng/mL (10.0-200.0) H 10/03/20 09:30 Total Bilirubin 0.50 mg/dL (0.1-1.2) 10/03/20 09:30 AST 26 units/L (5-40) 10/03/20 09:30 ALT 10 units/L (7-56) 10/03/20 09:30 Alkaline Phosphatase 48 units/L (35-129) 10/03/20 09:30 Ammonia 20.0 umol/L (25-60) L 10/01/20 11:39 Lactate Dehydrogenase 241 units/L (91-180) H 10/03/20 09:30 Total Creatine Kinase 54 units/L (30-135) 10/01/20 11:39 C-Reactive Protein 2.70 mg/dL (0.00-1.30) H 10/03/20 09:30 Total Protein 6.1 g/dL (6.3-8.2) L 10/03/20 09:30 Albumin 2.9 g/dL (3.9-5) L 10/03/20 09:30 Albumin/Globulin Ratio 0.9 % 10/03/20 09:30 Procalcitonin 0.52 ng/mL (<0.15) 10/03/20 09:30 TSH 6.100 mlU/mL (0.270-4.200) H 10/01/20 11:39 Free T4 1.40 ng/dL (0.76-1.46) 10/03/20 09:30 Urine Color Dag[place] (Yellow) 10/01/20 13:15 Urine Turbidity Cloudy (Clear) 10/01/20 13:15 Urine pH 7.0 (5.0-7.0) 10/01/20 13:15 Ur Specific [place] 1.012 (1.003-1.030) 10/01/20 13:15 Urine Protein >500 mg/dL (Negative) 10/01/20 13:15 Urine Glucose (UA) Neg mg/dL (Negative) 10/01/20 13:15 Urine Ketones Neg mg/dL (Negative) 10/01/20 13:15 Urine Blood Sm (Negative) 10/01/20 13:15 Urine Nitrite Neg (Negative) 10/01/20 13:15 Urine Bilirubin Neg (Negative) 10/01/20 13:15 Urine Urobilinogen < 2.0 mg/dL (<2.0) 10/01/20 13:15 Ur Leukocyte Esterase Lg (Negative) 10/01/20 13:15 Urine WBC (Auto) > 182.0 /HPF (0.0-6.0) H 10/01/20 13:15 Urine RBC (Auto) 18.0 /HPF (0.0-6.0) 10/01/20 13:15 U Epithel Cells (Auto) 4.0 /HPF (0-13.0) 10/01/20 13:15 Urine Bacteria (Auto) 1+ /HPF (Negative) 10/01/20 13:15 Urine WBC Clumps 2+ /HPF 10/01/20 13:15 Urine Mucus Few /HPF 10/01/20 13:15 Random Vancomycin 7.6 ug/mL (0-40.0) 10/03/20 09:30 Salicylates < 0.3 mg/dL (2.8-20.0) L 10/01/20 11:39 Urine Opiates Screen Negative 10/01/20 13:15 Urine Methadone Screen Negative 10/01/20 13:15 Acetaminophen 5.0 ug/mL (10.0-30.0) L 10/01/20 11:39 Ur Barbiturates Screen Negative 10/01/20 13:15 Ur Phencyclidine Scrn Negative 10/01/20 13:15 Ur Amphetamines Screen Negative 10/01/20 13:15 U Benzodiazepines Scrn Negative 10/01/20 13:15 Urine Cocaine Screen Negative 10/01/20 13:15 U Marijuana (THC) Screen Negative 10/01/20 13:15 Drugs of Abuse Note Disclamer 10/01/20 13:15 Coronavirus (PCR) Positive (Negative) A 10/02/20 Unknown Microbiology: Microbiology 10/01/20 11:39 Peripheral/Venous Blood Culture - Preliminary NO GROWTH AFTER 4 DAYS 10/01/20 11:50 Peripheral/Venous Blood Culture - Preliminary NO GROWTH AFTER 4 DAYS Barrientos/IV: Voiding Method Incontinent IV Catheter Type [Right INT / Saline Lock Forearm] IV Catheter Type [Left Upper dialysis access arm] Active Medications - Current Medications Current Medications: Generic Name Dose Route Start Last Admin Trade Name Freq PRN Reason Stop Dose Admin Acetaminophen 650 mg 10/01/20 15:50 Acetaminophen 325 Mg Tab PO Q4H PRN Pain MILD(1-3)/Fever >100.5/VERDE Albuterol 2.5 mg 10/01/20 15:50 Albuterol 2.5 Mg/3 Ml Nebu IH Q4HRT PRN Shortness Of Breath Aspirin 81 mg 10/01/20 17:00 10/05/20 16:38 Aspirin 81 Mg Tab Chew PO 81 mg QDAY BUTCH Administration Carvedilol 25 mg 10/05/20 22:00 10/05/20 23:03 Carvedilol 25 Mg Tab PO 25 mg BID BUTCH Administration Dextrose 50 ml 10/01/20 15:54 Dextrose 50% In Water (25gm) 50 Ml Syringe IV Q30MIN PRN Hypoglycemia Protocol Epoetin Jagjit 10,000 unit 10/02/20 09:19 10/02/20 20:20 Epoetin Jagjit 10,000 Unit/1 Ml Inj IV 10,000 unit ALANA PRN Administration hemodialysis Famotidine 20 mg 10/02/20 10:00 10/05/20 11:15 Famotidine 20 Mg Tab PO 20 mg DAILY BUTCH Administration Heparin Sodium (Porcine) 2,100 unit 10/05/20 18:35 Heparin 10,000 Units/10 Ml Vial 40 unit/kg (2100 unit) IV Q6H PRN Anti-Xa Assay < 0.1 units/ml Hydralazine HCl 5 mg 10/01/20 22:31 10/01/20 22:57 Hydralazine 20 Mg/1 Ml Inj IV 5 mg Q4H PRN Administration Blood Pressure Sodium Chloride 100 mls @ 999 mls/hr 10/02/20 09:19 Nacl 0.9% IV ALANA PRN Hypotension Heparin Sodium/Sodium Chloride 25,000 unit in 500 mls @ 15 mls/hr 10/05/20 19:00 10/06/20 06:43 Heparin/ 0.45% Nacl-25,000 Unit/500 Ml IV 750 units/hr TITR BUTCH 15 mls/hr Titration Protocol 750 UNITS/HR Insulin Glargine 20 units 10/05/20 10:00 10/05/20 15:13 Insulin Glargine 100 Units/Ml SUB-Q 20 units QAM BUTCH Administration Insulin Human Lispro 0 unit 10/01/20 16:30 10/05/20 23:03 Insulin Lispro 100 Unit/Ml Vial 3 Ml SUB-Q 2 unit ACHS BUTCH Administration Protocol Levetiracetam 500 mg 10/01/20 22:00 10/05/20 23:03 Levetiracetam 500 Mg Tab PO 500 mg BID BUTCH Administration Losartan Potassium 50 mg 10/02/20 10:00 10/05/20 11:14 Losartan 50 Mg Tab PO 50 mg QDAY BUTCH Administration Megestrol Acetate 400 mg 10/02/20 10:00 10/05/20 11:16 Megestrol 400 Mg/10 Ml Oral Liqd PO Not Given QDAY BUTCH Methylprednisolone Sodium Succinate 40 mg 10/01/20 18:00 10/06/20 06:43 Methylprednisolone Sod Succinate 40 Mg/1 Ml Inj IV 40 mg Q8H BUTCH Administration Ondansetron HCl 4 mg 10/01/20 15:50 Ondansetron 4 Mg/2 Ml Inj IV Q8H PRN Nausea And Vomiting Sodium Chloride 10 ml 10/01/20 22:00 10/05/20 23:04 Sodium Chloride 0.9% 10 Ml Flush Syringe IV 10 ml BID BUTCH Administration Sodium Chloride 10 ml 10/01/20 15:50 10/02/20 09:48 Sodium Chloride 0.9% 10 Ml Flush Syringe IV 10 ml PRN PRN Administration LINE FLUSH Valproic Acid 500 mg 10/04/20 23:45 10/06/20 06:43 Valproic Acid 250 Mg/5 Ml Oral Liqd PO 500 mg Q8HR BUTCH Administration Nutrition/Malnutrition Assess - Dietary Evaluation Nutrition/Malnutrition Findings: Nutrition Notes Start: 10/02/20 14:56 Freq: Status: Active Protocol: Document 10/04/20 10:36 AB (Rec: 10/04/20 10:58 AB [id number]) Co-Sign 10/04/20 10:36 MK Nutrition Notes Initial or Follow up Brief Note Current Diagnosis CKD (stage V CKD),Coronary Artery Disease,Diabetes, Hyperlipidemia Other Pertinent Diagnosis COVID-19 (+), Encephalopathy, UTI, GERD, pneu, seizure d/o Current Diet Mechanical soft Labs/Tests Na 134 BUN 50 Cr 3.9 POC BG 291 Pertinent Medications Solu-medrol Epoetin Jagjit Height 5 ft 5 in Weight 53 kg [place] Body Weight (kg) 56.81 BMI 19.4 Weight Status Underweight Subjective/Other Information F/U for stable intakes and wt. ST note from 10/03 approved pt for mechanical soft diet w/ chopped meats. Pt receiving HD today. Per RN, pt are 100% of breakfast and is feeding self . RN also stated that she has been hungry more often. Nutrition Intervention Change Diet Order: Add renal/consistent carb Anticipated Discharge Needs: Renal/consistent carb + mechanical soft Follow-Up By: 10/10/20 Additional Comments F/U for stable intakes
[2020-10-06] MEDS ORDERED: LOSARTAN 50 MG TAB PO SCH (10:58)
[2020-10-06] MEDS: INSULIN LISPRO 100 UNIT/ML VIAL 3 mL SUB-Q SCH ×4 (11:41→21:59)
[2020-10-06] MEDS: ASPIRIN 81 MG TAB CHEW PO SCH (11:41)
--- NOTE | 2020-10-06 11:41 | Progress Note ---
Subjective Interval history: Patient was Evaluated from renal standpoint, but was not physically examined Currently dialysis dependent Thursday and Thursday Events of 24 hours vitals labs intake output medications were reviewed Past medical history: Reviewed Family history: Reviewed Social history: Reviewed Allergies: Reviewed Physical examination: Vitals: Reviewed Due to ongoing pandemic with Covid 19As well as limited resources as far as full PPE is concerned and also to prevent the risk of transmission and cross infection patient was physically not examined With exam findings were reviewed from hospital medicine service notes Labs and x-rays: Reviewed from today Assessment and plan #End stage renal disease currently maintenance hemodialysis, patient will continue with hemodialysis treatment on Thursday schedule As of today patient's hemoglobin is 10.0,Monitor dialysis-related labs periodically #Anemia and end-stage renal disease: To monitor and follow current hemoglobin is around 10 #Bone mineral disorder and secondary hyperparathyroidism, binders with meals #Diabetes mellitus type 2, Covid 19 pneumonia, altered mental status Maintain fluid restriction high-protein diet #Hypertension goal systolic blood pressure less than 160 pre-dialysis We'll continue to follow and make recommendation for renal standpoint Objective - Vital Signs Vital signs: Vital Signs - 12hr 10/06/20 10/06/20 10/06/20 03:46 10:40 11:00 Temperature 98.1 F Pulse Rate 100 H 83 56 L Respiratory 18 Rate Blood Pressure 106/56 107/49 91/67 O2 Sat by Pulse 99 Oximetry 10/06/20 10/06/20 11:15 11:30 Temperature Pulse Rate 83 112 H Respiratory Rate Blood Pressure 102/35 97/53 O2 Sat by Pulse Oximetry - Lab 10/06/20 05:56 10/04/20 05:24 Most recent lab results Calcium 7.9 mg/dL (8.4-10.2) L 10/04/20 05:24 Medications & Allergies - Medications Allergies/Adverse Reactions: Allergies No Known Allergies Allergy (Unverified 02/02/18 15:43) Home Medications: Home Medications Medication Instructions Recorded Confirmed Last Taken Type Aspirin 81 mg PO DAILY 08/13/18 10/06/20 08/11/18 History Acetaminophen [Acetaminophen TAB] 650 mg PO Q4H PRN tablet 09/02/18 10/06/20 Unknown Rx Lispro Insulin [HumaLOG] 0 unit SUB-Q ACHS units 09/02/18 10/06/20 Unknown Rx ISOSORBIDE MONOnitrate [Imdur ER] 60 mg PO DAILY tablet 10/15/18 10/06/20 Unknown Rx carvediloL [Coreg] 12.5 mg PO BID tablet 10/15/18 10/06/20 Unknown Rx Losartan [Cozaar] 50 mg PO QDAY #30 tablet 11/01/18 10/06/20 Unknown Rx Lacosamide [Vimpat] 50 mg PO Q12HR #60 tablet 08/22/19 10/06/20 Unknown Rx Linagliptin [Tradjenta] 5 mg PO QDDIAB #30 tablet 08/22/19 10/06/20 Unknown Rx levETIRAcetam [Keppra TAB] 500 mg PO BID #60 tablet 08/22/19 10/06/20 Unknown Rx Famotidine [Pepcid] 20 mg PO DAILY #30 tablet 08/07/20 10/06/20 Unknown Rx NIFEdipine XL [Procardia Xl] 60 mg PO Q12HR #60 tablet 08/07/20 10/06/20 Unknown Rx hydrALAZINE [Apresoline TAB] 100 mg PO Q8HR #90 tab 08/07/20 10/06/20 Unknown Rx megestroL [Megestrol] 400 mg PO QDAY 30 Days #1 oral.liqd 08/07/20 10/06/20 Unknown Rx Active Medications: Generic Name Dose Route Start Last Admin Trade Name Freq PRN Reason Stop Dose Admin Acetaminophen 650 mg 10/01/20 15:50 Acetaminophen 325 Mg Tab PO Q4H PRN Pain MILD(1-3)/Fever >100.5/VERDE Albuterol 2.5 mg 10/01/20 15:50 Albuterol 2.5 Mg/3 Ml Nebu IH Q4HRT PRN Shortness Of Breath Apixaban 2.5 mg 10/06/20 22:00 Apixaban 2.5 Mg Tab PO Q12HR BUTCH Protocol Aspirin 81 mg 10/01/20 17:00 10/05/20 16:38 Aspirin 81 Mg Tab Chew PO 81 mg QDAY BUTCH Administration Atorvastatin Calcium 20 mg 10/06/20 22:00 Atorvastatin 20 Mg Tab PO QHS BUTCH Dextrose 50 ml 10/01/20 15:54 Dextrose 50% In Water (25gm) 50 Ml Syringe IV Q30MIN PRN Hypoglycemia Protocol Epoetin Jagjit 10,000 unit 10/02/20 09:19 10/02/20 20:20 Epoetin Jagjit 10,000 Unit/1 Ml Inj IV 10,000 unit ALANA PRN Administration hemodialysis Famotidine 20 mg 10/02/20 10:00 10/05/20 11:15 Famotidine 20 Mg Tab PO 20 mg DAILY BUTCH Administration Hydralazine HCl 5 mg 10/01/20 22:31 10/01/20 22:57 Hydralazine 20 Mg/1 Ml Inj IV 5 mg Q4H PRN Administration Blood Pressure Sodium Chloride 100 mls @ 999 mls/hr 10/02/20 09:19 Nacl 0.9% IV ALANA PRN Hypotension Insulin Glargine 20 units 10/05/20 10:00 10/05/20 15:13 Insulin Glargine 100 Units/Ml SUB-Q 20 units QAM BUTCH Administration Insulin Human Lispro 0 unit 10/01/20 16:30 10/06/20 11:41 Insulin Lispro 100 Unit/Ml Vial 3 Ml SUB-Q Not Given ACHS [facility] Protocol Levetiracetam 500 mg 10/01/20 22:00 10/05/20 23:03 Levetiracetam 500 Mg Tab PO 500 mg BID BUTCH Administration Losartan Potassium 25 mg 10/06/20 10:58 Losartan 50 Mg Tab PO QDAY [facility] Megestrol Acetate 400 mg 10/02/20 10:00 10/05/20 11:16 Megestrol 400 Mg/10 Ml Oral Liqd PO Not Given QDAY [facility] Methylprednisolone Sodium Succinate 40 mg 10/06/20 22:00 Methylprednisolone Sod Succinate 40 Mg/1 Ml Inj IV 10/07/20 23:59 BID [facility] Metoprolol Tartrate 25 mg 10/06/20 11:00 Metoprolol Tartrate 25 Mg Tab PO BID [facility] Ondansetron HCl 4 mg 10/01/20 15:50 Ondansetron 4 Mg/2 Ml Inj IV Q8H PRN Nausea And Vomiting Sodium Chloride 10 ml 10/01/20 22:00 10/05/20 23:04 Sodium Chloride 0.9% 10 Ml Flush Syringe IV 10 ml BID BUTCH Administration Sodium Chloride 10 ml 10/01/20 15:50 10/02/20 09:48 Sodium Chloride 0.9% 10 Ml Flush Syringe IV 10 ml PRN PRN Administration LINE FLUSH Valproic Acid 500 mg 10/04/20 23:45 10/06/20 06:43 Valproic Acid 250 Mg/5 Ml Oral Liqd PO 500 mg Q8HR BUTCH Administration
[2020-10-06] MEDS: FAMOTIDINE 20 MG TAB PO SCH (11:42)
[2020-10-06] MEDS: levETIRAcetam 500 MG TAB PO SCH ×2 (11:42→21:32)
[2020-10-06] MEDS: MEGESTROL 400 MG/10 ML ORAL LIQD PO SCH (11:42)
[2020-10-06] MEDS: METOPROLOL TARTRATE 25 MG TAB PO SCH ×2 (11:42→21:58)
[2020-10-06] MEDS: INSULIN GLARGINE 100 UNITS/ML SUB-Q SCH (11:44)
[2020-10-06] MEDS: carvediloL 25 MG TAB PO SCH (11:45)
[2020-10-06] MEDS: LOSARTAN 50 MG TAB PO SCH (11:46)
[2020-10-06] MEDS: APIXABAN 2.5 MG TAB PO SCH (21:31)
[2020-10-07] MEDS: VALPROIC ACID 250 MG/5 ML ORAL LIQD PO SCH ×3 (06:07→22:56)
[2020-10-07 06:59] LABS: Hematocrit 30.9 % (30.3-42.9); Hemoglobin 9.9 gm/dl (10.1-14.3)
--- NOTE | 2020-10-07 09:15 | Progress Note ---
Subjective Interval history: Patient was Evaluated from renal standpoint, but was not physically examined Time of evaluation around 11:30 in the morning Currently dialysis dependent Thursday and Thursday Has atrial fibrillation with rapid ventricular response Events of 24 hours vitals labs intake output medications were reviewed Past medical history: Reviewed Family history: Reviewed Social history: Reviewed Allergies: Reviewed Physical examination: Vitals: Reviewed Due to ongoing pandemic with Covid 19 as well as limited Availability of full PPE And also to reduce the risk of transmission across infection patient was physically not examined however Physical examination findings were reviewed from hospital chart Assessment and plan #End stage renal disease currently maintenance hemodialysis, patient will continue with hemodialysis treatment on Thursday schedule #Hypertension Blood pressure is currently on the low side, will discontinue losartan at this time Will need to be reassessed as far as blood pressure is concerned tomorrow As atrial fibrillation with rapid ventricular response currently being followed by cardiology #Anemia and end-stage renal disease: To monitor and follow current hemoglobin is around 10 #Bone mineral disorder and secondary hyperparathyroidism, binders with meals #Diabetes mellitus type 2, Covid 19 pneumonia, altered mental status Maintain fluid restriction high-protein diet #Hypertension goal systolic blood pressure less than 160 pre-dialysis We'll continue to follow and make recommendation for renal standpoint Objective - Vital Signs Vital signs: Vital Signs - 12hr 10/06/20 10/06/20 10/06/20 21:45 21:58 22:11 Temperature 99.1 F Pulse Rate 109 H 109 H Respiratory 20 Rate Blood Pressure 123/47 O2 Sat by Pulse 94 96 Oximetry 10/07/20 06:11 Temperature 99.7 F H Pulse Rate 125 H Respiratory 20 Rate Blood Pressure 130/68 O2 Sat by Pulse 98 Oximetry - Lab 10/07/20 05:53 10/04/20 05:24 Most recent lab results Calcium 7.9 mg/dL (8.4-10.2) L 10/04/20 05:24 Medications & Allergies - Medications Allergies/Adverse Reactions: Allergies No Known Allergies Allergy (Unverified 02/02/18 15:43) Home Medications: Home Medications Medication Instructions Recorded Confirmed Last Taken Type Aspirin 81 mg PO DAILY 08/13/18 10/06/20 08/11/18 History Acetaminophen [Acetaminophen TAB] 650 mg PO Q4H PRN tablet 09/02/18 10/06/20 Unknown Rx Lispro Insulin [HumaLOG] 0 unit SUB-Q ACHS units 09/02/18 10/06/20 Unknown Rx ISOSORBIDE MONOnitrate [Imdur ER] 60 mg PO DAILY tablet 10/15/18 10/06/20 Unknown Rx carvediloL [Coreg] 12.5 mg PO BID tablet 10/15/18 10/06/20 Unknown Rx Losartan [Cozaar] 50 mg PO QDAY #30 tablet 11/01/18 10/06/20 Unknown Rx Lacosamide [Vimpat] 50 mg PO Q12HR #60 tablet 08/22/19 10/06/20 Unknown Rx Linagliptin [Tradjenta] 5 mg PO QDDIAB #30 tablet 08/22/19 10/06/20 Unknown Rx levETIRAcetam [Keppra TAB] 500 mg PO BID #60 tablet 08/22/19 10/06/20 Unknown Rx Famotidine [Pepcid] 20 mg PO DAILY #30 tablet 08/07/20 10/06/20 Unknown Rx NIFEdipine XL [Procardia Xl] 60 mg PO Q12HR #60 tablet 08/07/20 10/06/20 Unknown Rx hydrALAZINE [Apresoline TAB] 100 mg PO Q8HR #90 tab 08/07/20 10/06/20 Unknown Rx megestroL [Megestrol] 400 mg PO QDAY 30 Days #1 oral.liqd 08/07/20 10/06/20 Unknown Rx Active Medications: Generic Name Dose Route Start Last Admin Trade Name Freq PRN Reason Stop Dose Admin Acetaminophen 650 mg 10/01/20 15:50 Acetaminophen 325 Mg Tab PO Q4H PRN Pain MILD(1-3)/Fever >100.5/VERDE Albuterol 2.5 mg 10/01/20 15:50 Albuterol 2.5 Mg/3 Ml Nebu IH Q4HRT PRN Shortness Of Breath Apixaban 2.5 mg 10/06/20 22:00 10/06/20 21:31 Apixaban 2.5 Mg Tab PO 2.5 mg Q12HR [facility] Administration Protocol Aspirin 81 mg 10/01/20 17:00 10/06/20 11:41 Aspirin 81 Mg Tab Chew PO Not Given QDAY [facility] Atorvastatin Calcium 20 mg 10/06/20 22:00 10/06/20 21:32 Atorvastatin 20 Mg Tab PO 20 mg QHS BUTCH Administration Dextrose 50 ml 10/01/20 15:54 Dextrose 50% In Water (25gm) 50 Ml Syringe IV Q30MIN PRN Hypoglycemia Protocol Epoetin Jagjit 10,000 unit 10/02/20 09:19 10/02/20 20:20 Epoetin Jagjit 10,000 Unit/1 Ml Inj IV 10,000 unit ALANA PRN Administration hemodialysis Famotidine 20 mg 10/02/20 10:00 10/06/20 11:42 Famotidine 20 Mg Tab PO Not Given DAILY [facility] Hydralazine HCl 5 mg 10/01/20 22:31 10/01/20 22:57 Hydralazine 20 Mg/1 Ml Inj IV 5 mg Q4H PRN Administration Blood Pressure Sodium Chloride 100 mls @ 999 mls/hr 10/02/20 09:19 Nacl 0.9% IV ALANA PRN Hypotension Insulin Glargine 20 units 10/05/20 10:00 10/06/20 11:44 Insulin Glargine 100 Units/Ml [facility] Human Lispro 0 unit 10/01/20 16:30 10/06/20 21:59 Insulin Lispro 100 Unit/Ml Vial 3 Ml SUB-Q 3 unit ACHS BUTCH Administration Protocol Levetiracetam 500 mg 10/01/20 22:00 10/06/20 21:32 Levetiracetam 500 Mg Tab PO 500 mg BID BUTCH Administration Losartan Potassium 25 mg 10/06/20 10:58 Losartan 50 Mg Tab PO QDAY [facility] Megestrol Acetate 400 mg 10/02/20 10:00 10/06/20 11:42 Megestrol 400 Mg/10 Ml Oral Liqd PO Not Given QDAY [facility] Methylprednisolone Sodium Succinate 40 mg 10/06/20 22:00 10/06/20 21:32 Methylprednisolone Sod Succinate 40 Mg/1 Ml Inj IV 10/07/20 23:59 40 mg BID BUTCH Administration Metoprolol Tartrate 25 mg 10/06/20 11:00 10/06/20 21:58 Metoprolol Tartrate 25 Mg Tab PO 25 mg BID BUTCH Administration Ondansetron HCl 4 mg 10/01/20 15:50 Ondansetron 4 Mg/2 Ml Inj IV Q8H PRN Nausea And Vomiting Sodium Chloride 10 ml 10/01/20 22:00 10/06/20 22:00 Sodium Chloride 0.9% 10 Ml Flush Syringe IV 10 ml BID BUTCH Administration Sodium Chloride 10 ml 10/01/20 15:50 10/02/20 09:48 Sodium Chloride 0.9% 10 Ml Flush Syringe IV 10 ml PRN PRN Administration LINE FLUSH Valproic Acid 500 mg 10/04/20 23:45 10/07/20 06:07 Valproic Acid 250 Mg/5 Ml Oral Liqd PO 500 mg Q8HR BUTCH Administration
[2020-10-07] MEDS: INSULIN LISPRO 100 UNIT/ML VIAL 3 mL SUB-Q SCH ×4 (09:34→22:57)
[2020-10-07] MEDS: INSULIN GLARGINE 100 UNITS/ML SUB-Q SCH (11:24)
[2020-10-07] MEDS: MEGESTROL 400 MG/10 ML ORAL LIQD PO SCH (11:25)
[2020-10-07] MEDS: ASPIRIN 81 MG TAB CHEW PO SCH (11:25)
[2020-10-07] MEDS: APIXABAN 2.5 MG TAB PO SCH ×2 (11:25→22:42)
[2020-10-07] MEDS: FAMOTIDINE 20 MG TAB PO SCH (11:26)
[2020-10-07] MEDS: methylPREDNISolone Sod Succinate 40 MG/1 ML INJ IV SCH ×2 (11:26→22:58)
[2020-10-07] MEDS: levETIRAcetam 500 MG TAB PO SCH ×2 (11:45→22:42)
--- NOTE | 2020-10-07 12:22 | Progress Note ---
Assessment and Plan Assessment and plan: 80 YO Female with HTN, DM, Seizure Disorder, HLD, Diastolic CHF, ESRD on HD(M,W,F), Vascular Dementia, Cerebral Atherosclerosis presents to emergency room after she was noted to have seizure-like activity after being discharged from [facility]. Patient was discharged on Depakote and Keppra. In the ER here, she was found to have metabolic encephalopathy, UTI, accelerated hypertension and pneumonia on chest x-ray. She was initiated on Pneumonia protocol and then admitted to the hospital. Hospital course Neurology was consulted for seizure episode. MRI brain and EEG advised. COVID- 19 test positive. Patient started on dexamethasone. ID consulted. Patient also on antibiotics for UTI. 10/05. Patients mental status has improved. MRI brain performed showed no acute abnormalities [this was done without contrast as patient has ESRD]. Overnight, patient had A. fib with RVR with rates in the 100-120s. Cardiology has been consulted. Beta-jason dose has been adjusted. Patient started on heparin drip 10/06. Heart rate up to 120's. Patient may need to be started on Cardizem drip however blood pressure is soft. Cardiology will consider amiodarone if not improving. Awaiting cardiology evaluation. She denies any chest pain or palpitations this morning. Afebrile overnight. 10/07. Coreg switched to metoprolol by cardiology. Heparin switched to eliquis Plan --Multifocal pneumonia Secondary to Covid Completed treatment --COVID-19 virus infection Taper off steroids Continue isolation -- Seizure Continue keppra 5 mg twice daily Depakote 750mg BID MRI of the brain without contrast performed-acute changes not found Awaiting EEG Neurology recs appreciated ---Atrial fibrillation with RVR On metoprolol On heparin drip Cardiology following -- Urinary tract infection Antibiotics completed --Accelerated hypertension Continue current blood pressure medications-losartan and Coreg -- End-stage renal disease on hemodialysis Hemodialysis as scheduled --Diabetes mellitus Lantus and lispro --Vascular dementia Stable ---DVT prophylaxis SCD to bilateral lower extremities while in bed Heparin drip --Advance care planning Current Visit: Yes Status: Acute Plan to address problem: Case management on board-patient on waiting list at [facility] [place] for temporary dialysis [facility] is willing to accept patient History Interval history: No acute events noted overnight Has no complains. HR still not controlled. Coreg switched to metoprolol by cardiology BP stable Hospitalist Physical - Physical exam Narrative exam: VITAL SIGNS: Reviewed. GENERAL: Awake HEAD: No signs of head trauma. EYES: Pupils are equal. Extraocular motions intact. MOUTH: Oropharynx is normal. NECK: No adenopathy, no JVD. CHEST: Chest with diminished breath sounds bilaterally. No wheezes, rales, or rhonchi. CARDIAC: normal S1 and S2, without murmurs, gallops, or rubs. ABDOMEN: Soft, non tender and non distended. No rebound or guarding, and no masses palpated. Bowel Sounds normal. MUSCULOSKELETAL: No edema NEUROLOGIC EXAM: Awake confused. No focal neurologic deficits SKIN: No obvious lesions - Constitutional Vitals: Temp Pulse Resp BP Pulse Ox 98.8 F 97 H 18 96/42 94 10/07/20 12:13 10/07/20 12:13 10/07/20 12:13 10/07/20 12:10 10/07/20 12:13 Results - Labs CBC & Chem 7: 10/07/20 05:53 10/04/20 05:24 Labs: Laboratory Last Values WBC 4.6 K/mm3 (4.5-11.0) 10/06/20 05:56 RBC 3.19 M/mm3 (3.65-5.03) L 10/06/20 05:56 Hgb 9.9 gm/dl (10.1-14.3) L 10/07/20 05:53 Hct 30.9 % (30.3-42.9) 10/07/20 05:53 MCV 96 fl (79-97) 10/06/20 05:56 MCH 31 pg (28-32) 10/06/20 05:56 MCHC 33 % (30-34) 10/06/20 05:56 RDW 17.7 % (13.2-15.2) H 10/06/20 05:56 Plt Count 96 K/mm3 (140-440) L 10/07/20 05:53 Lymph % (Auto) 7.4 % (13.4-35.0) L 10/04/20 05:24 Wetzel % (Auto) 5.5 % (0.0-7.3) 10/04/20 05:24 Eos % (Auto) 0.0 % (0.0-4.3) 10/04/20 05:24 Baso % (Auto) 0.2 % (0.0-1.8) 10/04/20 05:24 Lymph # (Auto) 0.2 K/mm3 (1.2-5.4) L 10/04/20 05:24 Wetzel # (Auto) 0.2 K/mm3 (0.0-0.8) 10/04/20 05:24 Eos # (Auto) 0.0 K/mm3 (0.0-0.4) 10/04/20 05:24 Baso # (Auto) 0.0 K/mm3 (0.0-0.1) 10/04/20 05:24 Add Manual Diff Complete 10/03/20 09:30 Total Counted 100 10/03/20 09:30 Seg Neutrophils % 86.9 % (40.0-70.0) H 10/04/20 05:24 Seg Neuts % (Manual) 95.0 % (40.0-70.0) H 10/03/20 09:30 Lymphocytes % (Manual) 1.0 % (13.4-35.0) L 10/03/20 09:30 Monocytes % (Manual) 4.0 % (0.0-7.3) 10/03/20 09:30 Nucleated RBC % 1.0 % (0.0-0.9) H 10/03/20 09:30 Seg Neutrophils # 2.7 K/mm3 (1.8-7.7) 10/04/20 05:24 Seg Neutrophils # Man 4.1 K/mm3 (1.8-7.7) 10/03/20 09:30 Band Neutrophils # 0.0 K/mm3 10/03/20 09:30 Lymphocytes # (Manual) 0.0 K/mm3 (1.2-5.4) L 10/03/20 09:30 Abs React Lymphs (Man) 0.0 K/mm3 10/03/20 09:30 Monocytes # (Manual) 0.2 K/mm3 (0.0-0.8) 10/03/20 09:30 Eosinophils # (Manual) 0.0 K/mm3 (0.0-0.4) 10/03/20 09:30 Basophils # (Manual) 0.0 K/mm3 (0.0-0.1) 10/03/20 09:30 Metamyelocytes # 0.0 K/mm3 10/03/20 09:30 Myelocytes # 0.0 K/mm3 10/03/20 09:30 Promyelocytes # 0.0 K/mm3 10/03/20 09:30 Blast Cells # 0.0 K/mm3 10/03/20 09:30 WBC Morphology Not Reportable 10/03/20 09:30 Hypersegmented Neuts Not Reportable 10/03/20 09:30 Hyposegmented Neuts Not Reportable 10/03/20 09:30 Hypogranular Neuts Not Reportable 10/03/20 09:30 Smudge Cells Not Reportable 10/03/20 09:30 Toxic Granulation Not Reportable 10/03/20 09:30 Toxic Vacuolation Not Reportable 10/03/20 09:30 Dohle Bodies Not Reportable 10/03/20 09:30 Pelger-Huet Anomaly Not Reportable 10/03/20 09:30 Richard Rods Not Reportable 10/03/20 09:30 Platelet Estimate Consistent w auto 10/03/20 09:30 Clumped Platelets Not Reportable 10/03/20 09:30 Plt Clumps, EDTA Not Reportable 10/03/20 09:30 Large Platelets Not Reportable 10/03/20 09:30 Giant Platelets Not Reportable 10/03/20 09:30 Platelet Satelliting Not Reportable 10/03/20 09:30 Plt Morphology Comment Not Reportable 10/03/20 09:30 RBC Morphology Not Reportable 10/03/20 09:30 Dimorphic RBCs Not Reportable 10/03/20 09:30 Polychromasia Few 10/03/20 09:30 Hypochromasia Not Reportable 10/03/20 09:30 Poikilocytosis 1+ 10/03/20 09:30 Anisocytosis 1+ 10/03/20 09:30 Microcytosis Not Reportable 10/03/20 09:30 Macrocytosis Not Reportable 10/03/20 09:30 Spherocytes Not Reportable 10/03/20 09:30 Pappenheimer Bodies Not Reportable 10/03/20 09:30 Sickle Cells Not Reportable 10/03/20 09:30 Target Cells Few 10/03/20 09:30 Tear Drop Cells Not Reportable 10/03/20 09:30 Ovalocytes Few 10/03/20 09:30 Helmet Cells Not Reportable 10/03/20 09:30 Cavazos-Onamia Bodies Not Reportable 10/03/20 09:30 Kennan Rings Not Reportable 10/03/20 09:30 Tangent Cells Few 10/03/20 09:30 Bite Cells Not Reportable 10/03/20 09:30 Crenated Cell Not Reportable 10/03/20 09:30 Elliptocytes Not Reportable 10/03/20 09:30 Acanthocytes (Spur) Not Reportable 10/03/20 09:30 Rouleaux Not Reportable 10/03/20 09:30 Hemoglobin C Crystals Not Reportable 10/03/20 09:30 Schistocytes Not Reportable 10/03/20 09:30 Malaria parasites Not Reportable 10/03/20 09:30 Cristofer Bodies Not Reportable 10/03/20 09:30 Hem Pathologist Commnt No 10/03/20 09:30 PT 13.4 Sec. (12.2-14.9) 10/05/20 20:39 INR 1.04 (0.87-1.13) 10/05/20 20:39 APTT 37.6 Sec. (24.2-36.6) H 10/05/20 20:39 D-Dimer 1609.74 ng/mlDDU (0-234) H 10/01/20 16:16 Heparin Anti-Xa Level 0.18 U.I./ml (0.3-0.7) L 10/06/20 05:56 Sodium 134 mmol/L (137-145) L 10/04/20 05:24 Potassium 4.7 mmol/L (3.6-5.0) 10/04/20 05:24 Chloride 96.2 mmol/L (98-107) L 10/04/20 05:24 Carbon Dioxide 24 mmol/L (22-30) 10/04/20 05:24 Anion Gap 19 mmol/L 10/04/20 05:24 BUN 50 mg/dL (7-17) H 10/04/20 05:24 Creatinine 3.9 mg/dL (0.6-1.2) H 10/04/20 05:24 Estimated GFR 13 ml/min 10/04/20 05:24 BUN/Creatinine Ratio 13 % 10/04/20 05:24 Glucose 350 mg/dL (65-100) H 10/04/20 05:24 POC Glucose 116 mg/dL (70-105) H 10/07/20 08:22 Lactic Acid 1.10 mmol/L (0.7-2.0) 10/01/20 16:16 Calcium 7.9 mg/dL (8.4-10.2) L 10/04/20 05:24 Ferritin 1926.0 ng/mL (10.0-200.0) H 10/03/20 09:30 Total Bilirubin 0.50 mg/dL (0.1-1.2) 10/03/20 09:30 AST 26 units/L (5-40) 10/03/20 09:30 ALT 10 units/L (7-56) 10/03/20 09:30 Alkaline Phosphatase 48 units/L (35-129) 10/03/20 09:30 Ammonia 20.0 umol/L (25-60) L 10/01/20 11:39 Lactate Dehydrogenase 241 units/L (91-180) H 10/03/20 09:30 Total Creatine Kinase 54 units/L (30-135) 10/01/20 11:39 C-Reactive Protein 2.70 mg/dL (0.00-1.30) H 10/03/20 09:30 Total Protein 6.1 g/dL (6.3-8.2) L 10/03/20 09:30 Albumin 2.9 g/dL (3.9-5) L 10/03/20 09:30 Albumin/Globulin Ratio 0.9 % 10/03/20 09:30 Procalcitonin 0.52 ng/mL (<0.15) 10/03/20 09:30 TSH 6.100 mlU/mL (0.270-4.200) H 10/01/20 11:39 Free T4 1.40 ng/dL (0.76-1.46) 10/03/20 09:30 Urine Color Dagmar (Yellow) 10/01/20 13:15 Urine Turbidity Cloudy (Clear) 10/01/20 13:15 Urine pH 7.0 (5.0-7.0) 10/01/20 13:15 Ur Specific Lima 1.012 (1.003-1.030) 10/01/20 13:15 Urine Protein >500 mg/dL (Negative) 10/01/20 13:15 Urine Glucose (UA) Neg mg/dL (Negative) 10/01/20 13:15 Urine Ketones Neg mg/dL (Negative) 10/01/20 13:15 Urine Blood Sm (Negative) 10/01/20 13:15 Urine Nitrite Neg (Negative) 10/01/20 13:15 Urine Bilirubin Neg (Negative) 10/01/20 13:15 Urine Urobilinogen < 2.0 mg/dL (<2.0) 10/01/20 13:15 Ur Leukocyte Esterase Lg (Negative) 10/01/20 13:15 Urine WBC (Auto) > 182.0 /HPF (0.0-6.0) H 10/01/20 13:15 Urine RBC (Auto) 18.0 /HPF (0.0-6.0) 10/01/20 13:15 U Epithel Cells (Auto) 4.0 /HPF (0-13.0) 10/01/20 13:15 Urine Bacteria (Auto) 1+ /HPF (Negative) 10/01/20 13:15 Urine WBC Clumps 2+ /HPF 10/01/20 13:15 Urine Mucus Few /HPF 10/01/20 13:15 Random Vancomycin 7.6 ug/mL (0-40.0) 10/03/20 09:30 Salicylates < 0.3 mg/dL (2.8-20.0) L 10/01/20 11:39 Urine Opiates Screen Negative 10/01/20 13:15 Urine Methadone Screen Negative 10/01/20 13:15 Acetaminophen 5.0 ug/mL (10.0-30.0) L 10/01/20 11:39 Ur Barbiturates Screen Negative 10/01/20 13:15 Ur Phencyclidine Scrn Negative 10/01/20 13:15 Ur Amphetamines Screen Negative 10/01/20 13:15 U Benzodiazepines Scrn Negative 10/01/20 13:15 Urine Cocaine Screen Negative 10/01/20 13:15 U Marijuana (THC) Screen Negative 10/01/20 13:15 Drugs of Abuse Note Disclamer 10/01/20 13:15 Coronavirus (PCR) Positive (Negative) A 10/02/20 Unknown Microbiology: Microbiology 10/01/20 11:39 Peripheral/Venous Blood Culture - Final NO GROWTH AFTER 5 DAYS 10/01/20 11:50 Peripheral/Venous Blood Culture - Final NO GROWTH AFTER 5 DAYS Barrientos/IV: Voiding Method Incontinent IV Catheter Type [Right INT / Saline Lock Forearm] IV Catheter Type [Left Upper dialysis access arm] Active Medications - Current Medications Current Medications: Generic Name Dose Route Start Last Admin Trade Name Freq PRN Reason Stop Dose Admin Acetaminophen 650 mg 10/01/20 15:50 Acetaminophen 325 Mg Tab PO Q4H PRN Pain MILD(1-3)/Fever >100.5/VERDE Albuterol 2.5 mg 10/01/20 15:50 Albuterol 2.5 Mg/3 Ml Nebu IH Q4HRT PRN Shortness Of Breath Apixaban 2.5 mg 10/06/20 22:00 10/07/20 11:25 Apixaban 2.5 Mg Tab PO 2.5 mg Q12HR BUTCH Administration Protocol Aspirin 81 mg 10/01/20 17:00 10/07/20 11:25 Aspirin 81 Mg Tab Chew PO 81 mg QDAY BUTCH Administration Atorvastatin Calcium 20 mg 10/06/20 22:00 10/06/20 21:32 Atorvastatin 20 Mg Tab PO 20 mg QHS BUTCH Administration Dextrose 50 ml 10/01/20 15:54 Dextrose 50% In Water (25gm) 50 Ml Syringe IV Q30MIN PRN Hypoglycemia Protocol Epoetin Jagjit 10,000 unit 10/02/20 09:19 10/02/20 20:20 Epoetin Jagjit 10,000 Unit/1 Ml Inj IV 10,000 unit ALANA PRN Administration hemodialysis Famotidine 20 mg 10/02/20 10:00 10/07/20 11:26 Famotidine 20 Mg Tab PO 20 mg DAILY BUTCH Administration Hydralazine HCl 5 mg 10/01/20 22:31 10/01/20 22:57 Hydralazine 20 Mg/1 Ml Inj IV 5 mg Q4H PRN Administration Blood Pressure Sodium Chloride 100 mls @ 999 mls/hr 10/02/20 09:19 Nacl 0.9% IV ALANA PRN Hypotension Insulin Glargine 20 units 10/05/20 10:00 10/07/20 11:24 Insulin Glargine 100 Units/Ml SUB-Q 20 units QAM BUTCH Administration Insulin Human Lispro 0 unit 10/01/20 16:30 10/07/20 09:34 Insulin Lispro 100 Unit/Ml Vial 3 Ml SUB-Q Not Given ACHS [facility] Protocol Levetiracetam 500 mg 10/01/20 22:00 10/07/20 11:45 Levetiracetam 500 Mg Tab PO 500 mg BID BUTCH Administration Losartan Potassium 25 mg 10/06/20 10:58 Losartan 50 Mg Tab PO QDAY BUTCH Megestrol Acetate 400 mg 10/02/20 10:00 10/07/20 11:25 Megestrol 400 Mg/10 Ml Oral Liqd PO 400 mg QDAY BUTCH Administration Methylprednisolone Sodium Succinate 40 mg 10/06/20 22:00 10/07/20 11:26 Methylprednisolone Sod Succinate 40 Mg/1 Ml Inj IV 10/07/20 23:59 40 mg BID BUTCH Administration Metoprolol Tartrate 25 mg 10/06/20 11:00 10/06/20 21:58 Metoprolol Tartrate 25 Mg Tab PO 25 mg BID BUTCH Administration Ondansetron HCl 4 mg 10/01/20 15:50 Ondansetron 4 Mg/2 Ml Inj IV Q8H PRN Nausea And Vomiting Sodium Chloride 10 ml 10/01/20 22:00 10/06/20 22:00 Sodium Chloride 0.9% 10 Ml Flush Syringe IV 10 ml BID BUTCH Administration Sodium Chloride 10 ml 10/01/20 15:50 10/02/20 09:48 Sodium Chloride 0.9% 10 Ml Flush Syringe IV 10 ml PRN PRN Administration LINE FLUSH Valproic Acid 500 mg 10/04/20 23:45 10/07/20 06:07 Valproic Acid 250 Mg/5 Ml Oral Liqd PO 500 mg Q8HR BUTCH Administration Nutrition/Malnutrition Assess - Dietary Evaluation Nutrition/Malnutrition Findings: Nutrition Notes Start: 10/02/20 14:56 Freq: Status: Active Protocol: Document 10/04/20 10:36 AB (Rec: 10/04/20 10:58 AB [id number]) Co-Sign 10/04/20 10:36 MK Nutrition Notes Initial or Follow up Brief Note Current Diagnosis CKD (stage V CKD),Coronary Artery Disease,Diabetes, Hyperlipidemia Other Pertinent Diagnosis COVID-19 (+), Encephalopathy, UTI, GERD, pneu, seizure d/o Current Diet Mechanical soft Labs/Tests Na 134 BUN 50 Cr 3.9 POC BG 291 Pertinent Medications Solu-medrol Epoetin Jagjit Height 5 ft 5 in Weight 53 kg [place] Body Weight (kg) 56.81 BMI 19.4 Weight Status Underweight Subjective/Other Information F/U for stable intakes and wt. ST note from 10/03 approved pt for mechanical soft diet w/ chopped meats. Pt receiving HD today. Per RN, pt are 100% of breakfast and is feeding self . RN also stated that she has been hungry more often. Nutrition Intervention Change Diet Order: Add renal/consistent carb Anticipated Discharge Needs: Renal/consistent carb + mechanical soft Follow-Up By: 10/10/20 Additional Comments F/U for stable intakes
[2020-10-07] MEDS: METOPROLOL TARTRATE 25 MG TAB PO SCH ×2 (12:34→22:56)
[2020-10-07] MEDS ORDERED: AMIODARONE 150 MG in DEXTROSE 5% IN WATER 97 ML IV ONE (13:30)
[2020-10-07] MEDS ORDERED: AMIODARONE 900 MG in DEXTROSE 5% IN WATER 482 ML IV SCH (14:00)
[2020-10-07] MEDS: AMIODARONE 200 MG TAB PO SCH ×2 (16:12→22:42)
--- NOTE | 2020-10-07 16:38 | Progress Note ---
Assessment and Plan Continue PO Lopressor 25mg BID as tolerated. Would ideally like to start IV Amio gtt; however, notified by RN that pt will need to transfer for cardiac drip - no beds currently available on Tele floor or IMCU. As such, will initiate PO Amio 200mg BID. May start drip if bed becomes available & rate remains rapid. Will hold Losartan for now so that BB dosage may be increased. Will consider repeat echo when clinically stable/upon resolution of COVID-19 infection. Case reviewed in conjunction with Dr. Mckeon, who agrees with the assessment and plan of care. - Patient Problems (1) Pneumonia due to COVID-19 virus Current Visit: Yes Status: Acute (2) Atrial fibrillation with RVR Current Visit: Yes Status: Acute Plan to address problem: on Eliquis (3) NSVT (nonsustained ventricular tachycardia) Current Visit: Yes Status: Acute (4) Mild aortic stenosis Current Visit: Yes Status: Chronic (5) Severe pulmonary hypertension Current Visit: Yes Status: Chronic (6) End-stage renal disease on hemodialysis Current Visit: Yes Status: Chronic (7) Anemia Current Visit: Yes Status: Chronic Qualifiers: Anemia type: unspecified type Qualified Code(s): D64.9 - Anemia, unspecified (8) Seizure Current Visit: Yes Status: Chronic (9) Elevated TSH Current Visit: Yes Status: Acute Plan to address problem: Mgmt per Primary (10) Hypertension Current Visit: Yes Status: Chronic Qualifiers: Hypertension type: essential hypertension Qualified Code(s): I10 - Essential (primary) hypertension (11) Hyperlipidemia Current Visit: Yes Status: Chronic Qualifiers: Hyperlipidemia type: mixed hyperlipidemia Qualified Code(s): E78.2 - Mixed hyperlipidemia (12) T2DM (type 2 diabetes mellitus) Current Visit: Yes Status: Chronic (13) Vascular dementia Current Visit: Yes Status: Chronic Qualifiers: Dementia behavioral disturbance: without behavioral disturbance Qualified Code(s): F01.50 - Vascular dementia without behavioral disturbance Subjective Date of service: 10/07/20 Principal diagnosis: COVID-19 PNA, AF with RVR Interval history: Pt remains in AF 150s on tele, occasional 4-5 bt runs of VT noted (pt asymptomatic). Objective Last Vital Signs Temp 98.8 F 10/07/20 12:13 Pulse 97 H 10/07/20 12:13 Resp 18 10/07/20 12:13 BP 96/42 10/07/20 12:34 Pulse Ox 94 10/07/20 12:13 - Physical Examination Narrative exam: Exam deferred due to COVID-19 infection (exposure reduction and PPE conservation). Recommendations based on chart review and provider discussions. - Labs and Meds CBC 10/07/20 Range/Units 05:53 Hgb 9.9 L (10.1-14.3) gm/dl Hct 30.9 (30.3-42.9) % Plt Count 96 L (140-440) K/mm3 - Imaging and Cardiology EKG: report reviewed, image reviewed Echo: report reviewed (07/2019 LA mod dilated, mild-mod MR, mild-mod TR, mild , mild concentric LVH, EF 65-70%, severe pulm HTN, RVSP 83 mmHg) - Telemetry EKG Rhythm: Atrial Fibrillation - EKG Sinus rhythms and dysrhythmias: sinus rhythm
[2020-10-08] MEDS: VALPROIC ACID 250 MG/5 ML ORAL LIQD PO SCH ×3 (05:03→23:52)
[2020-10-08] MEDS: APIXABAN 2.5 MG TAB PO SCH ×2 (09:33→23:52)
[2020-10-08] MEDS: AMIODARONE 200 MG TAB PO SCH ×2 (09:33→23:52)
[2020-10-08] MEDS: levETIRAcetam 500 MG TAB PO SCH ×2 (09:33→23:53)
[2020-10-08] MEDS: FAMOTIDINE 20 MG TAB PO SCH (09:33)
[2020-10-08] MEDS: ASPIRIN 81 MG TAB CHEW PO SCH (09:33)
[2020-10-08] MEDS: METOPROLOL TARTRATE 25 MG TAB PO SCH ×2 (09:34→23:53)
[2020-10-08] MEDS: INSULIN LISPRO 100 UNIT/ML VIAL 3 mL SUB-Q SCH ×4 (09:37→23:52)
[2020-10-08] MEDS: INSULIN GLARGINE 100 UNITS/ML SUB-Q SCH (09:37)
--- NOTE | 2020-10-08 10:15 | Progress Note ---
Assessment and Plan Assessment and plan: 80 YO Female with HTN, DM, Seizure Disorder, HLD, Diastolic CHF, ESRD on HD(M,W,F), Vascular Dementia, Cerebral Atherosclerosis presents to emergency room after she was noted to have seizure-like activity after being discharged from [facility], [place]. Patient was discharged on Depakote and Keppra. In the ER here, she was found to have metabolic encephalopathy, UTI, accelerated hypertension and pneumonia on chest x-ray. She was initiated on Pneumonia protocol and then admitted to the hospital. Hospital course Neurology was consulted for seizure episode. MRI brain and EEG advised. COVID- 19 test positive. Patient started on dexamethasone. ID consulted. Patient also on antibiotics for UTI. 10/05. Patients mental status has improved. MRI brain performed showed no acute abnormalities [this was done without contrast as patient has ESRD]. Overnight, patient had A. fib with RVR with rates in the 100-120s. Cardiology has been consulted. Beta-jason dose has been adjusted. Patient started on heparin drip 10/06. Heart rate up to 120's. Patient may need to be started on Cardizem drip however blood pressure is soft. Cardiology will consider amiodarone if not improving. Awaiting cardiology evaluation. She denies any chest pain or palpitations this morning. Afebrile overnight. 10/07. Coreg switched to metoprolol by cardiology. Heparin switched to eliquis. Started on amiodarone drip but as patient could not be transferred to CCU/IMCU due to unavailable beds, she was switched to PO amiodarone by cardiology. 10/08. HR still elevated. BP soft today (normal saline bolus ordered. Started on midodrine for now. Had hypoglycemia overnight. Lantus reduced by 50%. Labs ordered. Plan --Multifocal pneumonia Secondary to Covid Completed treatment --COVID-19 virus infection Taper off steroids Continue isolation -- Seizure Continue keppra 5 mg twice daily Depakote 750mg BID MRI of the brain without contrast performed-acute changes not found Awaiting EEG Neurology recs appreciated ---Atrial fibrillation with RVR On metoprolol and amiodarone On eliquis Cardiology following -- Urinary tract infection Antibiotics completed --Accelerated hypertension Continue current blood pressure medications-losartan and Coreg -- End-stage renal disease on hemodialysis Hemodialysis as scheduled --Diabetes mellitus Lantus and lispro --Vascular dementia Stable ---DVT prophylaxis SCD to bilateral lower extremities while in bed Heparin drip --Advance care planning Current Visit: Yes Status: Acute Plan to address problem: Case management on board-patient on waiting [place] at [facility] [place] [facility] to accept patient History Interval history: No acute events noted overnight Has no complains. HR still not controlled. Coreg switched to metoprolol by cardiology BP stable Hospitalist Physical - Physical exam Narrative exam: VITAL SIGNS: Reviewed. GENERAL: Confused HEAD: No signs of head trauma. EYES: Pupils are equal. Extraocular motions intact. MOUTH: Oropharynx is normal. NECK: No adenopathy, no JVD. CHEST: Chest with diminished breath sounds bilaterally. No wheezes, rales, or rhonchi. CARDIAC: normal S1 and S2, without murmurs, gallops, or rubs. ABDOMEN: Soft, non tender and non distended. No rebound or guarding, and no masses palpated. Bowel Sounds normal. MUSCULOSKELETAL: No edema NEUROLOGIC EXAM: Confused No focal neurologic deficits SKIN: No obvious lesions - Constitutional Vitals: Temp Pulse Resp BP Pulse Ox 98.4 F 135 H 20 96/47 96 10/08/20 06:21 10/08/20 09:34 10/08/20 06:21 10/08/20 06:21 10/08/20 06:21 Results - Labs CBC & Chem 7: 10/07/20 05:53 10/04/20 05:24 Labs: Laboratory Last Values WBC 4.6 K/mm3 (4.5-11.0) 10/06/20 05:56 RBC 3.19 M/mm3 (3.65-5.03) L 10/06/20 05:56 Hgb 9.9 gm/dl (10.1-14.3) L 10/07/20 05:53 Hct 30.9 % (30.3-42.9) 10/07/20 05:53 MCV 96 fl (79-97) 10/06/20 05:56 MCH 31 pg (28-32) 10/06/20 05:56 MCHC 33 % (30-34) 10/06/20 05:56 RDW 17.7 % (13.2-15.2) H 10/06/20 05:56 Plt Count 96 K/mm3 (140-440) L 10/07/20 05:53 Lymph % (Auto) 7.4 % (13.4-35.0) L 10/04/20 05:24 [place] % (Auto) 5.5 % (0.0-7.3) 10/04/20 05:24 Eos % (Auto) 0.0 % (0.0-4.3) 10/04/20 05:24 Baso % (Auto) 0.2 % (0.0-1.8) 10/04/20 05:24 Lymph # (Auto) 0.2 K/mm3 (1.2-5.4) L 10/04/20 05:24 [place] # (Auto) 0.2 K/mm3 (0.0-0.8) 10/04/20 05:24 Eos # (Auto) 0.0 K/mm3 (0.0-0.4) 10/04/20 05:24 Baso # (Auto) 0.0 K/mm3 (0.0-0.1) 10/04/20 05:24 Add Manual Diff Complete 10/03/20 09:30 Total Counted 100 10/03/20 09:30 Seg Neutrophils % 86.9 % (40.0-70.0) H 10/04/20 05:24 Seg Neuts % (Manual) 95.0 % (40.0-70.0) H 10/03/20 09:30 Lymphocytes % (Manual) 1.0 % (13.4-35.0) L 10/03/20 09:30 Monocytes % (Manual) 4.0 % (0.0-7.3) 10/03/20 09:30 Nucleated RBC % 1.0 % (0.0-0.9) H 10/03/20 09:30 Seg Neutrophils # 2.7 K/mm3 (1.8-7.7) 10/04/20 05:24 Seg Neutrophils # Man 4.1 K/mm3 (1.8-7.7) 10/03/20 09:30 Band Neutrophils # 0.0 K/mm3 10/03/20 09:30 Lymphocytes # (Manual) 0.0 K/mm3 (1.2-5.4) L 10/03/20 09:30 Abs React Lymphs (Man) 0.0 K/mm3 10/03/20 09:30 Monocytes # (Manual) 0.2 K/mm3 (0.0-0.8) 10/03/20 09:30 Eosinophils # (Manual) 0.0 K/mm3 (0.0-0.4) 10/03/20 09:30 Basophils # (Manual) 0.0 K/mm3 (0.0-0.1) 10/03/20 09:30 Metamyelocytes # 0.0 K/mm3 10/03/20 09:30 Myelocytes # 0.0 K/mm3 10/03/20 09:30 Promyelocytes # 0.0 K/mm3 10/03/20 09:30 Blast Cells # 0.0 K/mm3 10/03/20 09:30 WBC Morphology Not Reportable 10/03/20 09:30 Hypersegmented Neuts Not Reportable 10/03/20 09:30 Hyposegmented Neuts Not Reportable 10/03/20 09:30 Hypogranular Neuts Not Reportable 10/03/20 09:30 Smudge Cells Not Reportable 10/03/20 09:30 Toxic Granulation Not Reportable 10/03/20 09:30 Toxic Vacuolation Not Reportable 10/03/20 09:30 Dohle Bodies Not Reportable 10/03/20 09:30 Pelger-Huet Anomaly Not Reportable 10/03/20 09:30 Richard Rods Not Reportable 10/03/20 09:30 Platelet Estimate Consistent w auto 10/03/20 09:30 Clumped Platelets Not Reportable 10/03/20 09:30 Plt Clumps, EDTA Not Reportable 10/03/20 09:30 Large Platelets Not Reportable 10/03/20 09:30 Giant Platelets Not Reportable 10/03/20 09:30 Platelet Satelliting Not Reportable 10/03/20 09:30 Plt Morphology Comment Not Reportable 10/03/20 09:30 RBC Morphology Not Reportable 10/03/20 09:30 Dimorphic RBCs Not Reportable 10/03/20 09:30 Polychromasia Few 10/03/20 09:30 Hypochromasia Not Reportable 10/03/20 09:30 Poikilocytosis 1+ 10/03/20 09:30 Anisocytosis 1+ 10/03/20 09:30 Microcytosis Not Reportable 10/03/20 09:30 Macrocytosis Not Reportable 10/03/20 09:30 Spherocytes Not Reportable 10/03/20 09:30 Pappenheimer Bodies Not Reportable 10/03/20 09:30 Sickle Cells Not Reportable 10/03/20 09:30 Target Cells Few 10/03/20 09:30 Tear Drop Cells Not Reportable 10/03/20 09:30 Ovalocytes Few 10/03/20 09:30 Helmet Cells Not Reportable 10/03/20 09:30 Cavazos-Wimer Bodies Not Reportable 10/03/20 09:30 [place] Rings Not Reportable 10/03/20 09:30 Warrens Cells Few 10/03/20 09:30 Bite Cells Not Reportable 10/03/20 09:30 Crenated Cell Not Reportable 10/03/20 09:30 Elliptocytes Not Reportable 10/03/20 09:30 Acanthocytes (Spur) Not Reportable 10/03/20 09:30 Rouleaux Not Reportable 10/03/20 09:30 Hemoglobin C Crystals Not Reportable 10/03/20 09:30 Schistocytes Not Reportable 10/03/20 09:30 Malaria parasites Not Reportable 10/03/20 09:30 Cristofer Bodies Not Reportable 10/03/20 09:30 Hem Pathologist Commnt No 10/03/20 09:30 PT 13.4 Sec. (12.2-14.9) 10/05/20 20:39 INR 1.04 (0.87-1.13) 10/05/20 20:39 APTT 37.6 Sec. (24.2-36.6) H 10/05/20 20:39 D-Dimer 1609.74 ng/mlDDU (0-234) H 10/01/20 16:16 Heparin Anti-Xa Level 0.18 U.I./ml (0.3-0.7) L 10/06/20 05:56 Sodium 134 mmol/L (137-145) L 10/04/20 05:24 Potassium 4.7 mmol/L (3.6-5.0) 10/04/20 05:24 Chloride 96.2 mmol/L (98-107) L 10/04/20 05:24 Carbon Dioxide 24 mmol/L (22-30) 10/04/20 05:24 Anion Gap 19 mmol/L 10/04/20 05:24 BUN 50 mg/dL (7-17) H 10/04/20 05:24 Creatinine 3.9 mg/dL (0.6-1.2) H 10/04/20 05:24 Estimated GFR 13 ml/min 10/04/20 05:24 BUN/Creatinine Ratio 13 % 10/04/20 05:24 Glucose 350 mg/dL (65-100) H 10/04/20 05:24 POC Glucose 99 mg/dL (70-105) 10/08/20 07:24 Lactic Acid 1.10 mmol/L (0.7-2.0) 10/01/20 16:16 Calcium 7.9 mg/dL (8.4-10.2) L 10/04/20 05:24 Ferritin 1926.0 ng/mL (10.0-200.0) H 10/03/20 09:30 Total Bilirubin 0.50 mg/dL (0.1-1.2) 10/03/20 09:30 AST 26 units/L (5-40) 10/03/20 09:30 ALT 10 units/L (7-56) 10/03/20 09:30 Alkaline Phosphatase 48 units/L (35-129) 10/03/20 09:30 Ammonia 20.0 umol/L (25-60) L 10/01/20 11:39 Lactate Dehydrogenase 241 units/L (91-180) H 10/03/20 09:30 Total Creatine Kinase 54 units/L (30-135) 10/01/20 11:39 C-Reactive Protein 2.70 mg/dL (0.00-1.30) H 10/03/20 09:30 Total Protein 6.1 g/dL (6.3-8.2) L 10/03/20 09:30 Albumin 2.9 g/dL (3.9-5) L 10/03/20 09:30 Albumin/Globulin Ratio 0.9 % 10/03/20 09:30 Procalcitonin 0.52 ng/mL (<0.15) 10/03/20 09:30 TSH 6.100 mlU/mL (0.270-4.200) H 10/01/20 11:39 Free T4 1.40 ng/dL (0.76-1.46) 10/03/20 09:30 Urine Color [place] (Yellow) 10/01/20 13:15 Urine Turbidity Cloudy (Clear) 10/01/20 13:15 Urine pH 7.0 (5.0-7.0) 10/01/20 13:15 Ur Specific [place] 1.012 (1.003-1.030) 10/01/20 13:15 Urine Protein >500 mg/dL (Negative) 10/01/20 13:15 Urine Glucose (UA) Neg mg/dL (Negative) 10/01/20 13:15 Urine Ketones Neg mg/dL (Negative) 10/01/20 13:15 Urine Blood Sm (Negative) 10/01/20 13:15 Urine Nitrite Neg (Negative) 10/01/20 13:15 Urine Bilirubin Neg (Negative) 10/01/20 13:15 Urine Urobilinogen < 2.0 mg/dL (<2.0) 10/01/20 13:15 Ur Leukocyte Esterase Lg (Negative) 10/01/20 13:15 Urine WBC (Auto) > 182.0 /HPF (0.0-6.0) H 10/01/20 13:15 Urine RBC (Auto) 18.0 /HPF (0.0-6.0) 10/01/20 13:15 U Epithel Cells (Auto) 4.0 /HPF (0-13.0) 10/01/20 13:15 Urine Bacteria (Auto) 1+ /HPF (Negative) 10/01/20 13:15 Urine WBC Clumps 2+ /HPF 10/01/20 13:15 Urine Mucus Few /HPF 10/01/20 13:15 Random Vancomycin 7.6 ug/mL (0-40.0) 10/03/20 09:30 Salicylates < 0.3 mg/dL (2.8-20.0) L 10/01/20 11:39 Urine Opiates Screen Negative 10/01/20 13:15 Urine Methadone Screen Negative 10/01/20 13:15 Acetaminophen 5.0 ug/mL (10.0-30.0) L 10/01/20 11:39 Ur Barbiturates Screen Negative 10/01/20 13:15 Ur Phencyclidine Scrn Negative 10/01/20 13:15 Ur Amphetamines Screen Negative 10/01/20 13:15 U Benzodiazepines Scrn Negative 10/01/20 13:15 Urine Cocaine Screen Negative 10/01/20 13:15 U Marijuana (THC) Screen Negative 10/01/20 13:15 Drugs of Abuse Note Disclamer 10/01/20 13:15 Coronavirus (PCR) Positive (Negative) A 10/02/20 Unknown Barrientos/IV: Voiding Method Incontinent IV Catheter Type [Right INT / Saline Lock Forearm] IV Catheter Type [Left Upper dialysis access arm] Active Medications - Current Medications Current Medications: Generic Name Dose Route Start Last Admin Trade Name Freq PRN Reason Stop Dose Admin Acetaminophen 650 mg 10/01/20 15:50 Acetaminophen 325 Mg Tab PO Q4H PRN Pain MILD(1-3)/Fever >100.5/VERDE Albuterol 2.5 mg 10/01/20 15:50 Albuterol 2.5 Mg/3 Ml Nebu IH Q4HRT PRN Shortness Of Breath Amiodarone HCl 200 mg 10/07/20 16:00 10/08/20 09:33 Amiodarone 200 Mg Tab PO 200 mg BID BUTCH Administration Apixaban 2.5 mg 10/06/20 22:00 10/08/20 09:33 Apixaban 2.5 Mg Tab PO 2.5 mg Q12HR BUTCH Administration Protocol Aspirin 81 mg 10/01/20 17:00 10/08/20 09:33 Aspirin 81 Mg Tab Chew PO 81 mg QDAY BUTCH Administration Atorvastatin Calcium 20 mg 10/06/20 22:00 10/07/20 22:42 Atorvastatin 20 Mg Tab PO 20 mg QHS BUTCH Administration Dextrose 50 ml 10/01/20 15:54 Dextrose 50% In Water (25gm) 50 Ml Syringe IV Q30MIN PRN Hypoglycemia Protocol Epoetin Jagjit 10,000 unit 10/02/20 09:19 10/02/20 20:20 Epoetin Jagjit 10,000 Unit/1 Ml Inj IV 10,000 unit ALANA PRN Administration hemodialysis Famotidine 20 mg 10/02/20 10:00 10/08/20 09:33 Famotidine 20 Mg Tab PO 20 mg DAILY BUTCH Administration Hydralazine HCl 5 mg 10/01/20 22:31 10/01/20 22:57 Hydralazine 20 Mg/1 Ml Inj IV 5 mg Q4H PRN Administration Blood Pressure Sodium Chloride 100 mls @ 999 mls/hr 10/02/20 09:19 Nacl 0.9% IV ALANA PRN Hypotension Amiodarone HCl 900 mg/ 500 mls @ 33.333 mls/hr 10/07/20 14:00 Dextrose IV DIRECT [facility] Protocol 1 MG/MIN Insulin Glargine 10 units 10/08/20 10:00 10/08/20 09:37 Insulin Glargine 100 Units/Ml SUB-Q Not Given QAM [facility] Insulin Human Lispro 0 unit 10/01/20 16:30 10/08/20 09:37 Insulin Lispro 100 Unit/Ml Vial 3 Ml SUB-Q Not Given ACHS [facility] Protocol Levetiracetam 500 mg 10/01/20 22:00 10/08/20 09:33 Levetiracetam 500 Mg Tab PO 500 mg BID BUTCH Administration Megestrol Acetate 400 mg 10/02/20 10:00 10/07/20 11:25 Megestrol 400 Mg/10 Ml Oral Liqd PO 400 mg QDAY BUTCH Administration Metoprolol Tartrate 25 mg 10/06/20 11:00 10/08/20 09:34 Metoprolol Tartrate 25 Mg Tab PO 25 mg BID BUTCH Administration Ondansetron HCl 4 mg 10/01/20 15:50 Ondansetron 4 Mg/2 Ml Inj IV Q8H PRN Nausea And Vomiting Sodium Chloride 10 ml 10/01/20 22:00 10/08/20 09:35 Sodium Chloride 0.9% 10 Ml Flush Syringe IV 10 ml BID BUTCH Administration Sodium Chloride 10 ml 10/01/20 15:50 10/02/20 09:48 Sodium Chloride 0.9% 10 Ml Flush Syringe IV 10 ml PRN PRN Administration LINE FLUSH Valproic Acid 500 mg 10/04/20 23:45 10/08/20 05:03 Valproic Acid 250 Mg/5 Ml Oral Liqd PO 500 mg Q8HR BUTCH Administration Nutrition/Malnutrition Assess - Dietary Evaluation Nutrition/Malnutrition Findings: Nutrition Notes Start: 10/02/20 14:56 Freq: Status: Active Protocol: Document 10/04/20 10:36 AB (Rec: 10/04/20 10:58 AB [id number]) Co-Sign 10/04/20 10:36 MK Nutrition Notes Initial or Follow up Brief Note Current Diagnosis CKD (stage V CKD),Coronary Artery Disease,Diabetes, Hyperlipidemia Other Pertinent Diagnosis COVID-19 (+), Encephalopathy, UTI, GERD, pneu, seizure d/o Current Diet Mechanical soft Labs/Tests Na 134 BUN 50 Cr 3.9 POC BG 291 Pertinent Medications Solu-medrol Epoetin Jagjit Height 5 ft 5 in Weight 53 kg Roy Body Weight (kg) 56.81 BMI 19.4 Weight Status Underweight Subjective/Other Information F/U for stable intakes and wt. ST note from 10/03 approved pt for mechanical soft diet w/ chopped meats. Pt receiving HD today. Per RN, pt are 100% of breakfast and is feeding self . RN also stated that she has been hungry more often. Nutrition Intervention Change Diet Order: Add renal/consistent carb Anticipated Discharge Needs: Renal/consistent carb + mechanical soft Follow-Up By: 10/10/20 Additional Comments F/U for stable intakes
[2020-10-08] MEDS ORDERED: SODIUM CHLORIDE 0.9% 1000 ML 250 ML IV ONE (10:19)
--- NOTE | 2020-10-08 11:30 | Progress Note ---
Assessment and Plan #End stage renal disease: continue maintenance hemodialysis // or prn, due tomorrow - avoid nephrotoxins - renally dose meds - renal diet #Hypertension: BP remains soft, off losartan. UF only as tolerated # Atrial fibrillation with rapid ventricular response: appreciate cardiology # Anemia: current hemoglobin is around 10, no acute indication for ESAs with HD # Bone mineral disorder and secondary hyperparathyroidism: continue binders with meals # Diabetes mellitus type 2 # Covid 19 pneumonia, altered mental status Subjective Date of service: 10/08/20 Principal diagnosis: COVID-19 PNA, AF with RVR Interval history: No acute changes noted per chart review Objective - Exam Narrative Exam: Direct examination not done due to COVID-19, need to limit PPE. Reviewed examination of primary team - Vital Signs Vital signs: Vital Signs - 12hr 10/08/20 10/08/20 06:21 09:34 Temperature 98.4 F Pulse Rate 108 H 135 H Respiratory 20 Rate Blood Pressure 96/47 O2 Sat by Pulse 96 Oximetry - Lab 10/07/20 05:53 10/04/20 05:24 Most recent lab results Calcium 7.9 mg/dL (8.4-10.2) L 10/04/20 05:24 Medications & Allergies - Medications Allergies/Adverse Reactions: Allergies No Known Allergies Allergy (Unverified 02/02/18 15:43) Home Medications: Home Medications Medication Instructions Recorded Confirmed Last Taken Type Aspirin 81 mg PO DAILY 08/13/18 10/06/20 08/11/18 History Acetaminophen [Acetaminophen TAB] 650 mg PO Q4H PRN tablet 09/02/18 10/06/20 Unknown Rx Lispro Insulin [HumaLOG] 0 unit SUB-Q ACHS units 09/02/18 10/06/20 Unknown Rx ISOSORBIDE MONOnitrate [Imdur ER] 60 mg PO DAILY tablet 10/15/18 10/06/20 Unknown Rx carvediloL [Coreg] 12.5 mg PO BID tablet 10/15/18 10/06/20 Unknown Rx Losartan [Cozaar] 50 mg PO QDAY #30 tablet 11/01/18 10/06/20 Unknown Rx Lacosamide [Vimpat] 50 mg PO Q12HR #60 tablet 08/22/19 10/06/20 Unknown Rx Linagliptin [Tradjenta] 5 mg PO QDDIAB #30 tablet 08/22/19 10/06/20 Unknown Rx levETIRAcetam [Keppra TAB] 500 mg PO BID #60 tablet 08/22/19 10/06/20 Unknown Rx Famotidine [Pepcid] 20 mg PO DAILY #30 tablet 08/07/20 10/06/20 Unknown Rx NIFEdipine XL [Procardia Xl] 60 mg PO Q12HR #60 tablet 08/07/20 10/06/20 Unknown Rx hydrALAZINE [Apresoline TAB] 100 mg PO Q8HR #90 tab 08/07/20 10/06/20 Unknown Rx megestroL [Megestrol] 400 mg PO QDAY 30 Days #1 oral.liqd 08/07/20 10/06/20 Unknown Rx Active Medications: Generic Name Dose Route Start Last Admin Trade Name Freq PRN Reason Stop Dose Admin Acetaminophen 650 mg 10/01/20 15:50 Acetaminophen 325 Mg Tab PO Q4H PRN Pain MILD(1-3)/Fever >100.5/VERDE Albuterol 2.5 mg 10/01/20 15:50 Albuterol 2.5 Mg/3 Ml Nebu IH Q4HRT PRN Shortness Of Breath Amiodarone HCl 200 mg 10/07/20 16:00 10/08/20 09:33 Amiodarone 200 Mg Tab PO 200 mg BID BUTCH Administration Apixaban 2.5 mg 10/06/20 22:00 10/08/20 09:33 Apixaban 2.5 Mg Tab PO 2.5 mg Q12HR BUTCH Administration Protocol Aspirin 81 mg 10/01/20 17:00 10/08/20 09:33 Aspirin 81 Mg Tab Chew PO 81 mg QDAY BUTCH Administration Atorvastatin Calcium 20 mg 10/06/20 22:00 10/07/20 22:42 Atorvastatin 20 Mg Tab PO 20 mg QHS BUTCH Administration Dextrose 50 ml 10/01/20 15:54 Dextrose 50% In Water (25gm) 50 Ml Syringe IV Q30MIN PRN Hypoglycemia Protocol Epoetin Jagjit 10,000 unit 10/02/20 09:19 10/02/20 20:20 Epoetin Jagjit 10,000 Unit/1 Ml Inj IV 10,000 unit ALANA PRN Administration hemodialysis Famotidine 20 mg 10/02/20 10:00 10/08/20 09:33 Famotidine 20 Mg Tab PO 20 mg DAILY BUTCH Administration Hydralazine HCl 5 mg 10/01/20 22:31 10/01/20 22:57 Hydralazine 20 Mg/1 Ml Inj IV 5 mg Q4H PRN Administration Blood Pressure Sodium Chloride 100 mls @ 999 mls/hr 10/02/20 09:19 Nacl 0.9% IV ALANA PRN Hypotension Amiodarone HCl 900 mg/ 500 mls @ 33.333 mls/hr 10/07/20 14:00 Dextrose IV DIRECT [facility] Protocol 1 MG/MIN Insulin Glargine 10 units 10/08/20 10:00 10/08/20 09:37 Insulin Glargine 100 Units/Ml SUB-Q Not Given QAM [facility] Insulin Human Lispro 0 unit 10/01/20 16:30 10/08/20 09:37 Insulin Lispro 100 Unit/Ml Vial 3 Ml SUB-Q Not Given ACHS [facility] Protocol Levetiracetam 500 mg 10/01/20 22:00 10/08/20 09:33 Levetiracetam 500 Mg Tab PO 500 mg BID BUTCH Administration Megestrol Acetate 400 mg 10/02/20 10:00 10/07/20 11:25 Megestrol 400 Mg/10 Ml Oral Liqd PO 400 mg QDAY BUTCH Administration Metoprolol Tartrate 25 mg 10/06/20 11:00 10/08/20 09:34 Metoprolol Tartrate 25 Mg Tab PO 25 mg BID BUTCH Administration Midodrine 5 mg 10/08/20 12:00 Midodrine 5 Mg Tab PO TID@0800,1200,1600 [facility] Ondansetron HCl 4 mg 10/01/20 15:50 Ondansetron 4 Mg/2 Ml Inj IV Q8H PRN Nausea And Vomiting Sodium Chloride 10 ml 10/01/20 22:00 10/08/20 09:35 Sodium Chloride 0.9% 10 Ml Flush Syringe IV 10 ml BID BUTCH Administration Sodium Chloride 10 ml 10/01/20 15:50 10/02/20 09:48 Sodium Chloride 0.9% 10 Ml Flush Syringe IV 10 ml PRN PRN Administration LINE FLUSH Valproic Acid 500 mg 10/04/20 23:45 10/08/20 05:03 Valproic Acid 250 Mg/5 Ml Oral Liqd PO 500 mg Q8HR BUTCH Administration
[2020-10-08] MEDS: MEGESTROL 400 MG/10 ML ORAL LIQD PO SCH (12:32)
[2020-10-08] MEDS: MIDODRINE 5 MG TAB PO SCH ×2 (12:33→15:16)
--- NOTE | 2020-10-08 16:25 | Progress Note ---
Assessment and Plan Continue PO Lopressor as BP permits. Would ideally like to start IV Amio gtt; however, notified by RN that pt will need to transfer for cardiac drip - no beds currently available on Tele floor or IMCU. As such, continue PO Amio 200mg BID. May start drip if bed becomes available & rate remains rapid. Continue to hold Losartan for now so that BB dosage may be increased. Will consider repeat echo when clinically stable/upon resolution of COVID-19 infection. Case reviewed in conjunction with Dr. Mckeon, who agrees with the assessment and plan of care. - Patient Problems (1) Pneumonia due to COVID-19 virus Current Visit: Yes Status: Acute (2) Atrial fibrillation with RVR Current Visit: Yes Status: Acute Plan to address problem: on Eliquis (3) NSVT (nonsustained ventricular tachycardia) Current Visit: Yes Status: Acute (4) Mild aortic stenosis Current Visit: Yes Status: Chronic (5) Severe pulmonary hypertension Current Visit: Yes Status: Chronic (6) End-stage renal disease on hemodialysis Current Visit: Yes Status: Chronic (7) Anemia Current Visit: Yes Status: Chronic Qualifiers: Anemia type: unspecified type Qualified Code(s): D64.9 - Anemia, unspecified (8) Seizure Current Visit: Yes Status: Chronic (9) Elevated TSH Current Visit: Yes Status: Acute Plan to address problem: Mgmt per Primary (10) Hypertension Current Visit: Yes Status: Chronic Qualifiers: Hypertension type: essential hypertension Qualified Code(s): I10 - Essential (primary) hypertension (11) Hyperlipidemia Current Visit: Yes Status: Chronic Qualifiers: Hyperlipidemia type: mixed hyperlipidemia Qualified Code(s): E78.2 - Mixed hyperlipidemia (12) T2DM (type 2 diabetes mellitus) Current Visit: Yes Status: Chronic (13) Vascular dementia Current Visit: Yes Status: Chronic Qualifiers: Dementia behavioral disturbance: without behavioral disturbance Qualified Code(s): F01.50 - Vascular dementia without behavioral disturbance Subjective Date of service: 10/08/20 Principal diagnosis: COVID-19 PNA, AF with RVR Interval history: AF 100-120s on tele, with occasional rate up to 160s on tele. BP remains on low side. Objective Last Vital Signs Temp 99.2 F 10/08/20 10:53 Pulse 132 H 10/08/20 10:53 Resp 18 10/08/20 10:53 BP 110/61 10/08/20 10:53 Pulse Ox 98 10/08/20 10:53 - Physical Examination Narrative exam: Exam deferred due to COVID-19 infection (exposure reduction and PPE conservation). Recommendations based on chart review and provider discussions. - Imaging and Cardiology EKG: report reviewed, image reviewed Echo: report reviewed (07/2019 LA mod dilated, mild-mod MR, mild-mod TR, mild , mild concentric LVH, EF 65-70%, severe pulm HTN, RVSP 83 mmHg) - Telemetry EKG Rhythm: Atrial Fibrillation - EKG Sinus rhythms and dysrhythmias: sinus rhythm
[2020-10-08] MEDS ORDERED: HEPARIN/NS 5000 UNIT/500ML 500 ML IR ONE (18:01)
[2020-10-08] MEDS: LIDOCAINE (2%) 20 MG/1 ML VIAL 20 ML MDV INFILTRATI ONE ×3 (18:30→18:46)
[2020-10-08] MEDS ORDERED: [UNRECOGNIZED DRUG - OTHER] TP ONE ×2 (19:04)
--- NOTE | 2020-10-08 19:15 | Consultation ---
History of Present Illness - Reason for Consult Consult date: 10/08/19 IV access Requesting physician: APRIL QUICK - History of Present Illness 80 YO Female with HTN, DM, Seizure Disorder, HLD, Diastolic CHF, ESRD on HD(M,W,F), Vascular Dementia, Cerebral Atherosclerosis presents to ED for evaluation. Patient is confused and lethargic and is unable to provide history. Patient was ultimately admitted to the hospital with COVID-19 pneumonia and multiple other issues and during her hospitalization has no IV access. PICC line team has attempted numerous times, over an hour yesterday trying to obtain any IV access which was impossible. Vascular consulted. Patient is altered and cannot provide history. Past History Past Medical History: diabetes, ESRD, hypertension, hyperlipidemia, seizures Past Surgical History: Other (Dialysis access) Social history: single. denies: smoking, alcohol abuse Family history: diabetes, hypertension Medications and Allergies Allergies Allergy/AdvReac Type Severity Reaction Status Date / Time No Known Allergies Allergy Unverified 02/02/18 15:43 Home Medications Medication Instructions Recorded Confirmed Last Taken Type Aspirin 81 mg PO DAILY 08/13/18 10/06/20 08/11/18 History Acetaminophen [Acetaminophen TAB] 650 mg PO Q4H PRN tablet 09/02/18 10/06/20 Unknown Rx Lispro Insulin [HumaLOG] 0 unit SUB-Q ACHS units 09/02/18 10/06/20 Unknown Rx ISOSORBIDE MONOnitrate [Imdur ER] 60 mg PO DAILY tablet 10/15/18 10/06/20 Unknown Rx carvediloL [Coreg] 12.5 mg PO BID tablet 10/15/18 10/06/20 Unknown Rx Losartan [Cozaar] 50 mg PO QDAY #30 tablet 11/01/18 10/06/20 Unknown Rx Lacosamide [Vimpat] 50 mg PO Q12HR #60 tablet 08/22/19 10/06/20 Unknown Rx Linagliptin [Tradjenta] 5 mg PO QDDIAB #30 tablet 08/22/19 10/06/20 Unknown Rx levETIRAcetam [Keppra TAB] 500 mg PO BID #60 tablet 08/22/19 10/06/20 Unknown Rx Famotidine [Pepcid] 20 mg PO DAILY #30 tablet 08/07/20 10/06/20 Unknown Rx NIFEdipine XL [Procardia Xl] 60 mg PO Q12HR #60 tablet 08/07/20 10/06/20 Unknown Rx hydrALAZINE [Apresoline TAB] 100 mg PO Q8HR #90 tab 08/07/20 10/06/20 Unknown Rx megestroL [Megestrol] 400 mg PO QDAY 30 Days #1 oral.liqd 08/07/20 10/06/20 Unknown Rx Active Meds: Active Medications Acetaminophen (Acetaminophen 325 Mg Tab) 650 mg PO Q4H PRN PRN Reason: Pain MILD(1-3)/Fever >100.5/VERDE Albuterol (Albuterol 2.5 Mg/3 Ml Nebu) 2.5 mg IH Q4HRT PRN PRN Reason: Shortness Of Breath Amiodarone HCl (Amiodarone 200 Mg Tab) 200 mg PO BID [facility] Last Admin: 10/08/20 09:33 Dose: 200 mg Documented by: Apixaban (Apixaban 2.5 Mg Tab) 2.5 mg PO Q12HR BUTCH; Protocol Last Admin: 10/08/20 09:33 Dose: 2.5 mg Documented by: Aspirin (Aspirin 81 Mg Tab Chew) 81 mg PO QDAY [facility] Last Admin: 10/08/20 09:33 Dose: 81 mg Documented by: Atorvastatin Calcium (Atorvastatin 20 Mg Tab) 20 mg PO QHS [facility] Last Admin: 10/07/20 22:42 Dose: 20 mg Documented by: Dextrose (Dextrose 50% In Water (25gm) 50 Ml Syringe) 50 ml IV Q30MIN PRN; Protocol PRN Reason: Hypoglycemia Epoetin Jagjit (Epoetin Jagjit 10,000 Unit/1 Ml Inj) 10,000 unit IV ALANA PRN PRN Reason: hemodialysis Last Admin: 10/02/20 20:20 Dose: 10,000 unit Documented by: Famotidine (Famotidine 20 Mg Tab) 20 mg PO DAILY [facility] Last Admin: 10/08/20 09:33 Dose: 20 mg Documented by: Hydralazine HCl (Hydralazine 20 Mg/1 Ml Inj) 5 mg IV Q4H PRN PRN Reason: Blood Pressure Last Admin: 10/01/20 22:57 Dose: 5 mg Documented by: Sodium Chloride (Nacl 0.9%) 100 mls @ 999 mls/hr IV ALANA PRN PRN Reason: Hypotension Amiodarone HCl 900 mg/ (Dextrose) 500 mls @ 33.333 mls/hr IV DIRECT [facility]; Protocol Insulin Glargine (Insulin Glargine 100 Units/Ml) 10 units SUB-Q QAM [facility] Last Admin: 10/08/20 09:37 Dose: Not Given Documented by: Insulin Human Lispro (Insulin Lispro 100 Unit/Ml Vial 3 Ml) 0 unit SUB-Q ACHS [facility]; Protocol Last Admin: 10/08/20 18:34 Dose: Not Given Documented by: Levetiracetam (Levetiracetam 500 Mg Tab) 500 mg PO BID [facility] Last Admin: 10/08/20 09:33 Dose: 500 mg Documented by: Megestrol Acetate (Megestrol 400 Mg/10 Ml Oral Liqd) 400 mg PO QDAY [facility] Last Admin: 10/08/20 12:32 Dose: 400 mg Documented by: Metoprolol Tartrate (Metoprolol Tartrate 25 Mg Tab) 25 mg PO BID [facility] Last Admin: 10/08/20 09:34 Dose: 25 mg Documented by: Midodrine (Midodrine 5 Mg Tab) 5 mg PO TID@0800,1200,1600 [facility] Last Admin: 10/08/20 15:16 Dose: 5 mg Documented by: Ondansetron HCl (Ondansetron 4 Mg/2 Ml Inj) 4 mg IV Q8H PRN PRN Reason: Nausea And Vomiting Sodium Chloride (Sodium Chloride 0.9% 10 Ml Flush Syringe) 10 ml IV BID [facility] Last Admin: 10/08/20 09:35 Dose: 10 ml Documented by: Sodium Chloride (Sodium Chloride 0.9% 10 Ml Flush Syringe) 10 ml IV PRN PRN PRN Reason: LINE FLUSH Last Admin: 10/02/20 09:48 Dose: 10 ml Documented by: Valproic Acid (Valproic Acid 250 Mg/5 Ml Oral Liqd) 500 mg PO Q8HR [facility] Last Admin: 10/08/20 15:16 Dose: 500 mg Documented by: Review of Systems ROS unobtainable: due to mental status Exam - Constitutional Vitals: Temp Pulse Resp BP Pulse Ox 99.6 F 126 H 22 94/44 96 10/08/20 16:46 10/08/20 16:46 10/08/20 16:46 10/08/20 16:46 10/08/20 16:46 General appearance: Present: other (Altered mental status) - EENT ENT: other (Altered mental status) - Neck Neck: Present: supple - Respiratory Respiratory effort: normal (No significant respiratory distress) - Abdominal General gastrointestinal: Present: soft, non-tender - Psychiatric Psychiatric: other (Altered mental status) Results - Labs CBC & Chem 7: 10/09/20 03:00 10/09/20 03:00 Labs: Abnormal lab results 10/07/20 Range/Units 23:24 POC Glucose 62 L (70-105) mg/dL Assessment and Plan 80-year-old female with inability to obtain IV access with multiple medical issues. Vascular consulted. We will place tunneled PICC line for IV access during this admission. Risks, benefits, and alternatives discussed with daughter who agrees with procedure.
--- NOTE | 2020-10-08 19:17 | Post Operative Note ---
Date of procedure: 10/08/20 Pre-op diagnosis: Hypotensive Post-op diagnosis: same Procedure: 1. Ultrasound guided access of the right internal jugular vein 2. Fluoroscopic guided placement of a tunneled 5 Fr small bore dual lumen catheter 3. SVC venography Anesthesia: local (w/ conscious sedation) Surgeon: NICO DWYER Estimated blood loss: minimal Condition: stable Disposition: floor
--- NOTE | 2020-10-08 19:17 | Operative Report ---
Operative Report Operative Report: EXAM: 1. Ultrasound-guided puncture of the right internal jugular vein 2. Fluoroscopic-guided placement of a right internal jugular tunneled NON- cuffed smallbore dual-lumen catheter. 3. SVC venography DATE: 10/08/2020 INDICATION: No IV access, end-stage renal disease, hypotensive. MEDICATIONS: Please see nursing report for full details. DEVICES: 5 Scottish dual-lumen power PICC catheter ANESTHESIA TECH: NICO DWYER MD CONTRAST: 10 mL's of nonionic contrast. PROCEDURE: The risks, benefits, and alternatives were discussed and informed consent was obtained. The patient was transported to the angiography suite in satisfactory/stable condition and was transported onto the angiography table. The patient's right internal jugular vein was assessed with ultrasound and determined to be patent prior to procedure. The patient was prepped and draped in a sterile fashion. The puncture site was anesthetized. Under sonographic guidance, the right internal jugular vein was punctured with a 21-gauge micropuncture needle and a 0.018 inch wire was advanced into the inferior vena cava. This was then exchang ed for a small bore transitional dilator. Digital subtraction angiography was then performed through the transitional dilator confirming position in the venous system and the SVC. The SVC was patent. A suitable exit site was identified on the patient's chest inferior and lateral to the venotomy. The site was anesthetized with local anesthetic and the track was anesthetized. Dermatotomy was made. The 5 Scottish dual-lumen smallbore catheter was tunneled between the dermatotomy to the venotomy with the assistance of a metal tunneler. Over 0.018 inch wire, the transitional dilator was exchanged for a 5 Scottish peel-away sheath. The wire was used to sean intravascular distance and removed. The catheter was cut to appropriate size. The catheter was advanced through the peel-away sheath and positioned centrally under fluoroscopic guidance. The peel-away sheath was removed. 4-0 Vicryl suture was used to close the venotomy and Dermabond was then applied. 3-0 Ethilon suture was used to secure the catheter at the dermatotomy. Due to low-dose Eliquis, and lack of lidocaine with epinephrine (back order nationally), there is oozing from the catheter tract. Despite pressure for 5 minutes, there was continued oozing. FloSeal was then applied and the oozing immediately stopped. No further bleeding. The catheter was charged with heparinized saline. Biopatch and sterile dressing applied. The patient was transferred from the angiography suite back to the floor in stable condition. FINDINGS: 1. Excellent flow was obtained through the dual lumen smallbore tunneled catheter. 2. The catheter tip is in the cavoatrial junction. IMPRESSION: 1. Successful ultrasound and fluoroscopically guided placement of a right internal jugular tunneled NON-cuffed dual-lumen catheter.
[2020-10-08] MEDS: DEXTROSE 50% IN WATER (25GM) 50 ML SYRINGE IV PRN (20:12)
[2020-10-09] MEDS: DEXTROSE 50% IN WATER (25GM) 50 ML SYRINGE IV PRN ×3 (01:38→12:51)
[2020-10-09 03:12] LABS: Hematocrit 25.5 % (30.3-42.9); Hemoglobin 8.4 gm/dl (10.1-14.3); Mean Corpuscular HGB Conc 33 % (30-34); Mean Corpuscular Volume 97 fl (79-97); Red Blood Count 2.64 M/mm3 (3.65-5.03); Red Cell Distribution Width 18.6 % (13.2-15.2)
[2020-10-09 03:13] LABS: Basophils % (Auto) 0.7 % (0.0-1.8); Eosinophils % (Auto) 0.8 % (0.0-4.3); Lymphocytes # (Auto) 0.2 K/mm3 (1.2-5.4); Lymphocytes % (Auto) 8.3 % (13.4-35.0); Monocytes # (Auto) 0.1 K/mm3 (0.0-0.8); Monocytes % (Auto) 4.8 % (0.0-7.3); Platelet Count 70 K/mm3 (140-440)
[2020-10-09 03:38] LABS: Albumin 2.3 g/dL (3.9-5); Calcium 7.6 mg/dL (8.4-10.2)
[2020-10-09] MEDS: VALPROIC ACID 250 MG/5 ML ORAL LIQD PO SCH ×3 (06:06→16:47)
[2020-10-09] MEDS: INSULIN LISPRO 100 UNIT/ML VIAL 3 mL SUB-Q SCH ×3 (08:20→16:48)
[2020-10-09] MEDS: MIDODRINE 5 MG TAB PO SCH ×3 (08:48→16:50)
[2020-10-09] MEDS: AMIODARONE 200 MG TAB PO SCH (09:37)
[2020-10-09] MEDS: METOPROLOL TARTRATE 25 MG TAB PO SCH (09:38)
--- NOTE | 2020-10-09 09:59 | Progress Note ---
Assessment and Plan Assessment and plan: 80 YO Female with HTN, DM, Seizure Disorder, HLD, Diastolic CHF, ESRD on HD(M,W,F), Vascular Dementia, Cerebral Atherosclerosis presents to emergency room after she was noted to have seizure-like activity after being discharged from [facility]. Patient was discharged on Depakote and Keppra. In the ER here, she was found to have metabolic encephalopathy, UTI, accelerated hypertension and pneumonia on chest x-ray. She was initiated on Pneumonia protocol and then admitted to the hospital. --Multifocal pneumonia Secondary to Covid Completed treatment --COVID-19 virus infection Taper off steroids Continue isolation -- Seizure Continue keppra 5 mg twice daily Depakote 750mg BID MRI of the brain without contrast performed-acute changes not found Awaiting EEG Neurology recs appreciated ---Atrial fibrillation with RVR On metoprolol and amiodarone On eliquis Cardiology following -- Urinary tract infection Antibiotics completed --Accelerated hypertension Continue current blood pressure medications-losartan and Coreg -- End-stage renal disease on hemodialysis Hemodialysis as scheduled --Diabetes mellitus Lantus and lispro --Vascular dementia Stable ---DVT prophylaxis SCD to bilateral lower extremities while in bed Heparin drip Hospital course Neurology was consulted for seizure episode. MRI brain and EEG advised. COVID-19 test positive. Patient started on dexamethasone. ID consulted. Patient also on antibiotics for UTI. 10/05. Patients mental status has improved. MRI brain performed showed no acute abnormalities [this was done without contrast as patient has ESRD]. Overnight, patient had A. fib with RVR with rates in the 100-120s. Cardiology has been consulted. Beta-jason dose has been adjusted. Patient started on heparin drip 10/06. Heart rate up to 120's. Patient may need to be started on Cardizem drip however blood pressure is soft. Cardiology will consider amiodarone if not improving. Awaiting cardiology evaluation. She denies any chest pain or palpitations this morning. Afebrile overnight. 10/07. Coreg switched to metoprolol by cardiology. Heparin switched to eliquis. Started on amiodarone drip but as patient could not be transferred to CCU/IMCU due to unavailable beds, she was switched to PO amiodarone by cardiology. 10/08. HR still elevated. BP soft today (normal saline bolus ordered. Started on midodrine for now. Had hypoglycemia overnight. Lantus reduced by 50%. Labs order ed. 10/09. Patient heart rate remains elevated. Consider transferring to IM and starting amiodarone drip. We will discuss with cardiology. Patient not taking p.o. therefore we will start Keppra IV. History Interval history: 80 YO Female with HTN, DM, Seizure Disorder, HLD, Diastolic CHF, ESRD on HD(M,W,F), Vascular Dementia, Cerebral Atherosclerosis presents to emergency room after she was noted to have seizure-like activity after being discharged from [facility]. Patient was discharged on Depakote and Keppra. In the ER here, she was found to have metabolic encephalopathy, UTI, accelerated hypertension and pneumonia on chest x-ray. She was initiated on Pneumonia protocol and then admitted to the hospital. No new issues overnight. Patient unable to take p.o. Hospitalist Physical - Constitutional Vitals: Temp Pulse Resp BP Pulse Ox 98.9 F 142 H 15 102/58 100 10/09/20 04:55 10/09/20 04:55 10/09/20 04:55 10/09/20 04:55 10/09/20 04:55 General appearance: Present: no acute distress, cachectic - EENT Eyes: Present: PERRL, EOM intact ENT: hearing intact, clear oral mucosa, dentition normal - Neck Neck: Present: supple, normal ROM - Respiratory Respiratory effort: normal Respiratory: bilateral: CTA - Cardiovascular Rhythm: regular Heart Sounds: Present: S1 & S2. Absent: gallop, rub - Extremities Extremities: no ischemia, No edema, Full ROM - Abdominal General gastrointestinal: soft, non-tender, non-distended, normal bowel sounds - Integumentary Integumentary: Present: clear, warm, dry - Neurologic Neurologic: CNII-XII intact, moves all extremities Results - Labs CBC & Chem 7: 10/09/20 03:00 10/09/20 03:00 Labs: Laboratory Last Values WBC 2.9 K/mm3 (4.5-11.0) L 10/09/20 03:00 RBC 2.64 M/mm3 (3.65-5.03) L 10/09/20 03:00 Hgb 8.4 gm/dl (10.1-14.3) L 10/09/20 03:00 Hct 25.5 % (30.3-42.9) L 10/09/20 03:00 MCV 97 fl (79-97) 10/09/20 03:00 MCH 32 pg (28-32) 10/09/20 03:00 MCHC 33 % (30-34) 10/09/20 03:00 RDW 18.6 % (13.2-15.2) H 10/09/20 03:00 Plt Count 70 K/mm3 (140-440) L 10/09/20 03:00 Lymph % (Auto) 8.3 % (13.4-35.0) L 10/09/20 03:00 Garza % (Auto) 4.8 % (0.0-7.3) 10/09/20 03:00 Eos % (Auto) 0.8 % (0.0-4.3) 10/09/20 03:00 Baso % (Auto) 0.7 % (0.0-1.8) 10/09/20 03:00 Lymph # (Auto) 0.2 K/mm3 (1.2-5.4) L 10/09/20 03:00 Garza # (Auto) 0.1 K/mm3 (0.0-0.8) 10/09/20 03:00 Eos # (Auto) 0.0 K/mm3 (0.0-0.4) 10/09/20 03:00 Baso # (Auto) 0.0 K/mm3 (0.0-0.1) 10/09/20 03:00 Add Manual Diff Complete 10/03/20 09:30 Total Counted 100 10/03/20 09:30 Seg Neutrophils % 85.4 % (40.0-70.0) H 10/09/20 03:00 Seg Neuts % (Manual) 95.0 % (40.0-70.0) H 10/03/20 09:30 Lymphocytes % (Manual) 1.0 % (13.4-35.0) L 10/03/20 09:30 Monocytes % (Manual) 4.0 % (0.0-7.3) 10/03/20 09:30 Nucleated RBC % 1.0 % (0.0-0.9) H 10/03/20 09:30 Seg Neutrophils # 2.5 K/mm3 (1.8-7.7) 10/09/20 03:00 Seg Neutrophils # Man 4.1 K/mm3 (1.8-7.7) 10/03/20 09:30 Band Neutrophils # 0.0 K/mm3 10/03/20 09:30 Lymphocytes # (Manual) 0.0 K/mm3 (1.2-5.4) L 10/03/20 09:30 Abs React Lymphs (Man) 0.0 K/mm3 10/03/20 09:30 Monocytes # (Manual) 0.2 K/mm3 (0.0-0.8) 10/03/20 09:30 Eosinophils # (Manual) 0.0 K/mm3 (0.0-0.4) 10/03/20 09:30 Basophils # (Manual) 0.0 K/mm3 (0.0-0.1) 10/03/20 09:30 Metamyelocytes # 0.0 K/mm3 10/03/20 09:30 Myelocytes # 0.0 K/mm3 10/03/20 09:30 Promyelocytes # 0.0 K/mm3 10/03/20 09:30 Blast Cells # 0.0 K/mm3 10/03/20 09:30 WBC Morphology Not Reportable 10/03/20 09:30 Hypersegmented Neuts Not Reportable 10/03/20 09:30 Hyposegmented Neuts Not Reportable 10/03/20 09:30 Hypogranular Neuts Not Reportable 10/03/20 09:30 Smudge Cells Not Reportable 10/03/20 09:30 Toxic Granulation Not Reportable 10/03/20 09:30 Toxic Vacuolation Not Reportable 10/03/20 09:30 Dohle Bodies Not Reportable 10/03/20 09:30 Pelger-Huet Anomaly Not Reportable 10/03/20 09:30 Richard Rods Not Reportable 10/03/20 09:30 Platelet Estimate Consistent w auto 10/03/20 09:30 Clumped Platelets Not Reportable 10/03/20 09:30 Plt Clumps, EDTA Not Reportable 10/03/20 09:30 Large Platelets Not Reportable 10/03/20 09:30 Giant Platelets Not Reportable 10/03/20 09:30 Platelet Satelliting Not Reportable 10/03/20 09:30 Plt Morphology Comment Not Reportable 10/03/20 09:30 RBC Morphology Not Reportable 10/03/20 09:30 Dimorphic RBCs Not Reportable 10/03/20 09:30 Polychromasia Few 10/03/20 09:30 Hypochromasia Not Reportable 10/03/20 09:30 Poikilocytosis 1+ 10/03/20 09:30 Anisocytosis 1+ 10/03/20 09:30 Microcytosis Not Reportable 10/03/20 09:30 Macrocytosis Not Reportable 10/03/20 09:30 Spherocytes Not Reportable 10/03/20 09:30 Pappenheimer Bodies Not Reportable 10/03/20 09:30 Sickle Cells Not Reportable 10/03/20 09:30 Target Cells Few 10/03/20 09:30 Tear Drop Cells Not Reportable 10/03/20 09:30 Ovalocytes Few 10/03/20 09:30 Helmet Cells Not Reportable 10/03/20 09:30 [place] Bodies Not Reportable 10/03/20 09:30 [place] Rings Not Reportable 10/03/20 09:30 Morena Cells Few 10/03/20 09:30 Bite Cells Not Reportable 10/03/20 09:30 Crenated Cell Not Reportable 10/03/20 09:30 Elliptocytes Not Reportable 10/03/20 09:30 Acanthocytes (Spur) Not Reportable 10/03/20 09:30 Rouleaux Not Reportable 10/03/20 09:30 Hemoglobin C Crystals Not Reportable 10/03/20 09:30 Schistocytes Not Reportable 10/03/20 09:30 Malaria parasites Not Reportable 10/03/20 09:30 Cristofer Bodies Not Reportable 10/03/20 09:30 Hem Pathologist Commnt No 10/03/20 09:30 PT 13.4 Sec. (12.2-14.9) 10/05/20 20:39 INR 1.04 (0.87-1.13) 10/05/20 20:39 APTT 37.6 Sec. (24.2-36.6) H 10/05/20 20:39 D-Dimer 1609.74 ng/mlDDU (0-234) H 10/01/20 16:16 Heparin Anti-Xa Level 0.18 U.I./ml (0.3-0.7) L 10/06/20 05:56 Sodium 137 mmol/L (137-145) 10/09/20 03:00 Potassium 3.8 mmol/L (3.6-5.0) 10/09/20 03:00 Chloride 96.6 mmol/L (98-107) L 10/09/20 03:00 Carbon Dioxide 27 mmol/L (22-30) 10/09/20 03:00 Anion Gap 17 mmol/L 10/09/20 03:00 BUN 49 mg/dL (7-17) H 10/09/20 03:00 Creatinine 4.1 mg/dL (0.6-1.2) H 10/09/20 03:00 Estimated GFR 13 ml/min 10/09/20 03:00 BUN/Creatinine Ratio 12 % 10/09/20 03:00 Glucose 50 mg/dL (65-100) L 10/09/20 03:00 POC Glucose 113 mg/dL (70-105) H 10/09/20 07:40 Lactic Acid 1.10 mmol/L (0.7-2.0) 10/01/20 16:16 Calcium 7.6 mg/dL (8.4-10.2) L 10/09/20 03:00 Ferritin 1926.0 ng/mL (10.0-200.0) H 10/03/20 09:30 Total Bilirubin 0.30 mg/dL (0.1-1.2) 10/09/20 03:00 AST 31 units/L (5-40) 10/09/20 03:00 ALT 9 units/L (7-56) 10/09/20 03:00 Alkaline Phosphatase 38 units/L (35-129) 10/09/20 03:00 Ammonia 20.0 umol/L (25-60) L 10/01/20 11:39 Lactate Dehydrogenase 241 units/L (91-180) H 10/03/20 09:30 Total Creatine Kinase 54 units/L (30-135) 10/01/20 11:39 C-Reactive Protein 2.70 mg/dL (0.00-1.30) H 10/03/20 09:30 Total Protein 4.7 g/dL (6.3-8.2) L 10/09/20 03:00 Albumin 2.3 g/dL (3.9-5) L 10/09/20 03:00 Albumin/Globulin Ratio 1.0 % 10/09/20 03:00 Procalcitonin 0.52 ng/mL (<0.15) 10/03/20 09:30 TSH 6.100 mlU/mL (0.270-4.200) H 10/01/20 11:39 Free T4 1.40 ng/dL (0.76-1.46) 10/03/20 09:30 Urine Color [place] (Yellow) 10/01/20 13:15 Urine Turbidity Cloudy (Clear) 10/01/20 13:15 Urine pH 7.0 (5.0-7.0) 10/01/20 13:15 Ur Specific [place] 1.012 (1.003-1.030) 10/01/20 13:15 Urine Protein >500 mg/dL (Negative) 10/01/20 13:15 Urine Glucose (UA) Neg mg/dL (Negative) 10/01/20 13:15 Urine Ketones Neg mg/dL (Negative) 10/01/20 13:15 Urine Blood Sm (Negative) 10/01/20 13:15 Urine Nitrite Neg (Negative) 10/01/20 13:15 Urine Bilirubin Neg (Negative) 10/01/20 13:15 Urine Urobilinogen < 2.0 mg/dL (<2.0) 10/01/20 13:15 Ur Leukocyte Esterase Lg (Negative) 10/01/20 13:15 Urine WBC (Auto) > 182.0 /HPF (0.0-6.0) H 10/01/20 13:15 Urine RBC (Auto) 18.0 /HPF (0.0-6.0) 10/01/20 13:15 U Epithel Cells (Auto) 4.0 /HPF (0-13.0) 10/01/20 13:15 Urine Bacteria (Auto) 1+ /HPF (Negative) 10/01/20 13:15 Urine WBC Clumps 2+ /HPF 10/01/20 13:15 Urine Mucus Few /HPF 10/01/20 13:15 Random Vancomycin 7.6 ug/mL (0-40.0) 10/03/20 09:30 Salicylates < 0.3 mg/dL (2.8-20.0) L 10/01/20 11:39 Urine Opiates Screen Negative 10/01/20 13:15 Urine Methadone Screen Negative 10/01/20 13:15 Acetaminophen 5.0 ug/mL (10.0-30.0) L 10/01/20 11:39 Ur Barbiturates Screen Negative 10/01/20 13:15 Ur Phencyclidine Scrn Negative 10/01/20 13:15 Ur Amphetamines Screen Negative 10/01/20 13:15 U Benzodiazepines Scrn Negative 10/01/20 13:15 Urine Cocaine Screen Negative 10/01/20 13:15 U Marijuana (THC) Screen Negative 10/01/20 13:15 Drugs of Abuse Note Disclamer 10/01/20 13:15 Coronavirus (PCR) Positive (Negative) A 10/02/20 Unknown Barrientos/IV: Voiding Method Incontinent IV Catheter Type [Right INT / Saline Lock Forearm] IV Catheter Type [Left Upper dialysis access arm] Active Medications - Current Medications Current Medications: Generic Name Dose Route Start Last Admin Trade Name Freq PRN Reason Stop Dose Admin Acetaminophen 650 mg 10/01/20 15:50 Acetaminophen 325 Mg Tab PO Q4H PRN Pain MILD(1-3)/Fever >100.5/VERDE Albuterol 2.5 mg 10/01/20 15:50 Albuterol 2.5 Mg/3 Ml Nebu IH Q4HRT PRN Shortness Of Breath Amiodarone HCl 200 mg 10/07/20 16:00 10/09/20 09:37 Amiodarone 200 Mg Tab PO Not Given BID BUTCH Apixaban 2.5 mg 10/06/20 22:00 10/08/20 23:52 Apixaban 2.5 Mg Tab PO Not Given Q12HR BUTCH Protocol Aspirin 81 mg 10/01/20 17:00 10/08/20 09:33 Aspirin 81 Mg Tab Chew PO 81 mg QDAY BUTCH Administration Atorvastatin Calcium 20 mg 10/06/20 22:00 10/08/20 23:53 Atorvastatin 20 Mg Tab PO Not Given QHS BUTCH Dextrose 50 ml 10/01/20 15:54 10/09/20 06:12 Dextrose 50% In Water (25gm) 50 Ml Syringe IV 50 ml Q30MIN PRN Administration Hypoglycemia Protocol Epoetin Jagjit 10,000 unit 10/02/20 09:19 10/02/20 20:20 Epoetin Jagjit 10,000 Unit/1 Ml Inj IV 10,000 unit ALANA PRN Administration hemodialysis Famotidine 20 mg 10/02/20 10:00 10/08/20 09:33 Famotidine 20 Mg Tab PO 20 mg DAILY BUTCH Administration Hydralazine HCl 5 mg 10/01/20 22:31 10/01/20 22:57 Hydralazine 20 Mg/1 Ml Inj IV 5 mg Q4H PRN Administration Blood Pressure Sodium Chloride 100 mls @ 999 mls/hr 10/02/20 09:19 Nacl 0.9% IV ALANA PRN Hypotension Amiodarone HCl 900 mg/ 500 mls @ 33.333 mls/hr 10/07/20 14:00 Dextrose IV DIRECT [facility] Protocol 1 MG/MIN Insulin Glargine 10 units 10/08/20 10:00 10/08/20 09:37 Insulin Glargine 100 Units/Ml SUB-Q Not Given QAM [facility] Insulin Human Lispro 0 unit 10/01/20 16:30 10/09/20 08:20 Insulin Lispro 100 Unit/Ml Vial 3 Ml SUB-Q Not Given ACHS [facility] Protocol Levetiracetam 500 mg 10/01/20 22:00 10/08/20 23:53 Levetiracetam 500 Mg Tab PO Not Given BID [facility] Megestrol Acetate 400 mg 10/02/20 10:00 10/08/20 12:32 Megestrol 400 Mg/10 Ml Oral Liqd PO 400 mg QDAY [facility] Administration Metoprolol Tartrate 25 mg 10/06/20 11:00 10/09/20 09:38 Metoprolol Tartrate 25 Mg Tab PO Not Given BID [facility] Midodrine 5 mg 10/08/20 12:00 10/09/20 08:48 Midodrine 5 Mg Tab PO 5 mg TID@0800,1200,1600 BUTCH Administration Ondansetron HCl 4 mg 10/01/20 15:50 Ondansetron 4 Mg/2 Ml Inj IV Q8H PRN Nausea And Vomiting Sodium Chloride 10 ml 10/01/20 22:00 10/09/20 00:02 Sodium Chloride 0.9% 10 Ml Flush Syringe IV 10 ml BID BUTCH Administration Sodium Chloride 10 ml 10/01/20 15:50 10/02/20 09:48 Sodium Chloride 0.9% 10 Ml Flush Syringe IV 10 ml PRN PRN Administration LINE FLUSH Valproic Acid 500 mg 10/04/20 23:45 10/09/20 08:49 Valproic Acid 250 Mg/5 Ml Oral Liqd PO 500 mg Q8HR BUTCH Administration Nutrition/Malnutrition Assess - Dietary Evaluation Nutrition/Malnutrition Findings: Nutrition Notes Start: 10/02/20 14:56 Freq: Status: Active Protocol: Document 10/04/20 10:36 AB (Rec: 10/04/20 10:58 AB [id number]) Co-Sign 10/04/20 10:36 MK Nutrition Notes Initial or Follow up Brief Note Current Diagnosis CKD (stage V CKD),Coronary Artery Disease,Diabetes, Hyperlipidemia Other Pertinent Diagnosis COVID-19 (+), Encephalopathy, UTI, GERD, pneu, seizure d/o Current Diet Mechanical soft Labs/Tests Na 134 BUN 50 Cr 3.9 POC BG 291 Pertinent Medications Solu-medrol Epoetin Jagjit Height 5 ft 5 in Weight 53 kg Nora Body Weight (kg) 56.81 BMI 19.4 Weight Status Underweight Subjective/Other Information F/U for stable intakes and wt. ST note from 10/03 approved pt for mechanical soft diet w/ chopped meats. Pt receiving HD today. Per RN, pt are 100% of breakfast and is feeding self . RN also stated that she has been hungry more often. Nutrition Intervention Change Diet Order: Add renal/consistent carb Anticipated Discharge Needs: Renal/consistent carb + mechanical soft Follow-Up By: 10/10/20 Additional Comments F/U for stable intakes
[2020-10-09] MEDS: APIXABAN 2.5 MG TAB PO SCH (10:51)
[2020-10-09] MEDS: levETIRAcetam 500 MG in DEXTROSE 5% IN WATER 100 ML IV SCH (10:51)
[2020-10-09] MEDS: INSULIN GLARGINE 100 UNITS/ML SUB-Q SCH (10:52)
--- NOTE | 2020-10-09 10:56 | Progress Note ---
Assessment and Plan Pt remains in AFib RVR, BPs hypotensive. Pt lethargic, unable to take PO meds this AM due to mental status. Optimize HR - initiate IV amio, pt to tx to IMCU per primary team. If pt remains unable to tolerate PO meds, may convert Eliquis to heparin gtt. Initiate IVF in setting of hypotension and consider vasopressor support if necessary to maintain MAP >60mmHg. Will consider repeat echo when clinically stable/upon resolution of COVID-19 infection. Case reviewed in conjunction with Dr. Mckeon, who agrees with the assessment and plan of care. - Patient Problems (1) Pneumonia due to COVID-19 virus Current Visit: Yes Status: Acute (2) Atrial fibrillation with RVR Current Visit: Yes Status: Acute Plan to address problem: apparent new onset - initiated on Eliquis (3) NSVT (nonsustained ventricular tachycardia) Current Visit: Yes Status: Acute (4) Mild aortic stenosis Current Visit: Yes Status: Chronic (5) Severe pulmonary hypertension Current Visit: Yes Status: Chronic (6) End-stage renal disease on hemodialysis Current Visit: Yes Status: Chronic (7) Anemia Current Visit: Yes Status: Chronic Qualifiers: Anemia type: unspecified type Qualified Code(s): D64.9 - Anemia, unspecified (8) Seizure Current Visit: Yes Status: Chronic (9) Elevated TSH Current Visit: Yes Status: Acute Plan to address problem: Mgmt per Primary (10) Hypertension Current Visit: Yes Status: Chronic Qualifiers: Hypertension type: essential hypertension Qualified Code(s): I10 - E ssential (primary) hypertension (11) Hyperlipidemia Current Visit: Yes Status: Chronic Qualifiers: Hyperlipidemia type: mixed hyperlipidemia Qualified Code(s): E78.2 - Mixed hyperlipidemia (12) T2DM (type 2 diabetes mellitus) Current Visit: Yes Status: Chronic (13) Vascular dementia Current Visit: Yes Status: Chronic Qualifiers: Dementia behavioral disturbance: without behavioral disturbance Qualified Code(s): F01.50 - Vascular dementia without behavioral disturbance Subjective Date of service: 10/09/20 Principal diagnosis: COVID-19 PNA, AF with RVR Interval history: lethargic. tele reviewed - remains in AFib RVR HR 120 - 130s. Objective Last Vital Signs Temp 98.9 F 10/09/20 04:55 Pulse 142 H 10/09/20 04:55 Resp 15 10/09/20 04:55 BP 102/58 10/09/20 04:55 Pulse Ox 98 10/09/20 10:00 - Physical Examination Narrative exam: agree with physical examination per primary team - Labs and Meds Cardiac Enzymes 10/09/20 Range/Units 03:00 AST 31 (5-40) units/L CBC 10/09/20 Range/Units 03:00 WBC 2.9 L (4.5-11.0) K/mm3 RBC 2.64 L (3.65-5.03) M/mm3 Hgb 8.4 L (10.1-14.3) gm/dl Hct 25.5 L (30.3-42.9) % Plt Count 70 L (140-440) K/mm3 Lymph # (Auto) 0.2 L (1.2-5.4) K/mm3 Yell # (Auto) 0.1 (0.0-0.8) K/mm3 Eos # (Auto) 0.0 (0.0-0.4) K/mm3 Baso # (Auto) 0.0 (0.0-0.1) K/mm3 Comprehensive Metabolic Panel 10/09/20 Range/Units 03:00 Sodium 137 (137-145) mmol/L Potassium 3.8 (3.6-5.0) mmol/L Chloride 96.6 L (98-107) mmol/L Carbon Dioxide 27 (22-30) mmol/L BUN 49 H (7-17) mg/dL Creatinine 4.1 H (0.6-1.2) mg/dL Glucose 50 L (65-100) mg/dL Calcium 7.6 L (8.4-10.2) mg/dL AST 31 (5-40) units/L ALT 9 (7-56) units/L Alkaline Phosphatase 38 (35-129) units/L Total Protein 4.7 L (6.3-8.2) g/dL Albumin 2.3 L (3.9-5) g/dL - Imaging and Cardiology EKG: report reviewed, image reviewed Echo: report reviewed (07/2019 LA mod dilated, mild-mod MR, mild-mod TR, mild , mild concentric LVH, EF 65-70%, severe pulm HTN, RVSP 83 mmHg) - Telemetry EKG Rhythm: Atrial Fibrillation - EKG Sinus rhythms and dysrhythmias: sinus rhythm
[2020-10-09] MEDS ORDERED: AMIODARONE 150 MG in DEXTROSE 5% IN WATER 97 ML IV ONE (11:00)
[2020-10-09] MEDS ORDERED: SODIUM CHLORIDE 0.9% 250ML 250 ML IV ONE (11:15)
[2020-10-09] MEDS ORDERED: AMIODARONE 900 MG in DEXTROSE 5% IN WATER 482 ML IV SCH (11:30)
--- NOTE | 2020-10-09 11:40 | Progress Note ---
Assessment and Plan # End stage renal disease: unstable for HD today given tachycardia, hypotension. Lytes WNL. Plan to continue maintenance hemodialysis // or prn, will assess daily - daily renal labs - avoid nephrotoxins - renally dose meds - renal diet # Hypertension: BP remains soft, off losartan. UF only as tolerated # Atrial fibrillation with rapid ventricular response: appreciate cardiology # Anemia: current hemoglobin is around 10, no acute indication for ESAs with HD # Bone mineral disorder and secondary hyperparathyroidism: continue binders with meals # Diabetes mellitus type 2 # Covid 19 pneumonia, altered mental status Subjective Date of service: 10/09/20 Principal diagnosis: COVID-19 PNA, AF with RVR Interval history: Tachycardic this AM, lethargic, hypotensive Objective - Exam Narrative Exam: Direct examination not done due to COVID-19, need to limit PPE. Reviewed examination of primary team - Vital Signs Vital signs: Vital Signs - 12hr 10/09/20 10/09/20 10/09/20 04:55 10:00 10:37 Temperature 98.9 F 98.2 F Pulse Rate 142 H 129 H Respiratory 15 20 Rate Blood Pressure 102/58 94/52 O2 Sat by Pulse 100 98 99 Oximetry - Lab 10/09/20 03:00 10/09/20 03:00 Most recent lab results Calcium 7.6 mg/dL (8.4-10.2) L 10/09/20 03:00 Medications & Allergies - Medications Allergies/Adverse Reactions: Allergies No Known Allergies Allergy (Unverified 02/02/18 15:43) Home Medications: Home Medications Medication Instructions Recorded Confirmed Last Taken Type Aspirin 81 mg PO DAILY 08/13/18 10/06/20 08/11/18 History Acetaminophen [Acetaminophen TAB] 650 mg PO Q4H PRN tablet 09/02/18 10/06/20 Unknown Rx Lispro Insulin [HumaLOG] 0 unit SUB-Q ACHS units 09/02/18 10/06/20 Unknown Rx ISOSORBIDE MONOnitrate [Imdur ER] 60 mg PO DAILY tablet 10/15/18 10/06/20 Unknown Rx carvediloL [Coreg] 12.5 mg PO BID tablet 10/15/18 10/06/20 Unknown Rx Losartan [Cozaar] 50 mg PO QDAY #30 tablet 11/01/18 10/06/20 Unknown Rx Lacosamide [Vimpat] 50 mg PO Q12HR #60 tablet 08/22/19 10/06/20 Unknown Rx Linagliptin [Tradjenta] 5 mg PO QDDIAB #30 tablet 08/22/19 10/06/20 Unknown Rx levETIRAcetam [Keppra TAB] 500 mg PO BID #60 tablet 08/22/19 10/06/20 Unknown Rx Famotidine [Pepcid] 20 mg PO DAILY #30 tablet 08/07/20 10/06/20 Unknown Rx NIFEdipine XL [Procardia Xl] 60 mg PO Q12HR #60 tablet 08/07/20 10/06/20 Unknown Rx hydrALAZINE [Apresoline TAB] 100 mg PO Q8HR #90 tab 08/07/20 10/06/20 Unknown Rx megestroL [Megestrol] 400 mg PO QDAY 30 Days #1 oral.liqd 08/07/20 10/06/20 Unknown Rx Active Medications: Generic Name Dose Route Start Last Admin Trade Name Freq PRN Reason Stop Dose Admin Acetaminophen 650 mg 10/01/20 15:50 Acetaminophen 325 Mg Tab PO Q4H PRN Pain MILD(1-3)/Fever >100.5/VERDE Albuterol 2.5 mg 10/01/20 15:50 Albuterol 2.5 Mg/3 Ml Nebu IH Q4HRT PRN Shortness Of Breath Apixaban 2.5 mg 10/06/20 22:00 10/09/20 10:51 Apixaban 2.5 Mg Tab PO 2.5 mg Q12HR BUTCH Administration Protocol Aspirin 81 mg 10/01/20 17:00 10/08/20 09:33 Aspirin 81 Mg Tab Chew PO 81 mg QDAY BUTCH Administration Atorvastatin Calcium 20 mg 10/06/20 22:00 10/08/20 23:53 Atorvastatin 20 Mg Tab PO Not Given QHS BUTCH Dextrose 50 ml 10/01/20 15:54 10/09/20 06:12 Dextrose 50% In Water (25gm) 50 Ml Syringe IV 50 ml Q30MIN PRN Administration Hypoglycemia Protocol Epoetin Jagjit 10,000 unit 10/02/20 09:19 10/02/20 20:20 Epoetin Jagjit 10,000 Unit/1 Ml Inj IV 10,000 unit ALANA PRN Administration hemodialysis Famotidine 20 mg 10/02/20 10:00 10/08/20 09:33 Famotidine 20 Mg Tab PO 20 mg DAILY BUTCH Administration Sodium Chloride 100 mls @ 999 mls/hr 10/02/20 09:19 Nacl 0.9% IV ALANA PRN Hypotension Levetiracetam 500 mg/ Dextrose 105 mls @ 400 mls/hr 10/09/20 10:00 10/09/20 10:51 IV 400 mls/hr Q12HR BUTCH Administration Amiodarone HCl 900 mg/ 500 mls @ 33.333 mls/hr 10/09/20 11:30 Dextrose IV DIRECT [facility] Protocol 1 MG/MIN Sodium Chloride 1,000 mls @ 75 mls/hr 10/09/20 11:45 Nacl 0.9% 1000 Ml IV DIRECT BUTCH Insulin Glargine 10 units 10/08/20 10:00 10/09/20 10:52 Insulin Glargine 100 Units/Ml SUB-Q Not Given QAM [facility] Insulin Human Lispro 0 unit 10/01/20 16:30 10/09/20 08:20 Insulin Lispro 100 Unit/Ml Vial 3 Ml SUB-Q Not Given ACHS [facility] Protocol Megestrol Acetate 400 mg 10/02/20 10:00 10/08/20 12:32 Megestrol 400 Mg/10 Ml Oral Liqd PO 400 mg QDAY BUTCH Administration Midodrine 5 mg 10/08/20 12:00 10/09/20 08:48 Midodrine 5 Mg Tab PO 5 mg TID@0800,1200,1600 BUTCH Administration Ondansetron HCl 4 mg 10/01/20 15:50 Ondansetron 4 Mg/2 Ml Inj IV Q8H PRN Nausea And Vomiting Sodium Chloride 10 ml 10/01/20 22:00 10/09/20 10:52 Sodium Chloride 0.9% 10 Ml Flush Syringe IV 10 ml BID BUTCH Administration Sodium Chloride 10 ml 10/01/20 15:50 10/02/20 09:48 Sodium Chloride 0.9% 10 Ml Flush Syringe IV 10 ml PRN PRN Administration LINE FLUSH Valproic Acid 500 mg 10/04/20 23:45 10/09/20 08:49 Valproic Acid 250 Mg/5 Ml Oral Liqd PO 500 mg Q8HR BUTCH Administration
[2020-10-09] MEDS: SODIUM CHLORIDE 0.9% 1000 ML 1,000 ML IV SCH (12:50)
[2020-10-09] MEDS: ASPIRIN 81 MG TAB CHEW PO SCH (12:58)
[2020-10-09] MEDS: MEGESTROL 400 MG/10 ML ORAL LIQD PO SCH (12:58)
[2020-10-09] MEDS: FAMOTIDINE 20 MG TAB PO SCH (12:58)
[2020-10-09 22:14] LABS: Albumin 2.5 g/dL (3.8-4.8); Gamma Globulin 1.5 g/dL (0.8-1.7)
[2020-10-10] MEDS: INSULIN LISPRO 100 UNIT/ML VIAL 3 mL SUB-Q SCH ×3 (00:59→16:36)
[2020-10-10] MEDS: VALPROIC ACID 250 MG/5 ML ORAL LIQD PO SCH ×3 (00:59→16:38)
[2020-10-10] MEDS: APIXABAN 2.5 MG TAB PO SCH ×2 (00:59→11:46)
[2020-10-10] MEDS: levETIRAcetam 500 MG in DEXTROSE 5% IN WATER 100 ML IV SCH ×2 (01:01→11:46)
[2020-10-10] MEDS: SODIUM CHLORIDE 0.9% 1000 ML 1,000 ML IV SCH ×2 (05:27→19:24)
[2020-10-10 06:25] LABS: Hematocrit 26.6 % (30.3-42.9); Hemoglobin 8.7 gm/dl (10.1-14.3); Mean Corpuscular HGB Conc 33 % (30-34); Mean Corpuscular Volume 98 fl (79-97); Red Blood Count 2.73 M/mm3 (3.65-5.03); Red Cell Distribution Width 18.6 % (13.2-15.2)
[2020-10-10 06:34] LABS: Platelet Count 55 K/mm3 (140-440)
[2020-10-10 06:48] LABS: Calcium 7.1 mg/dL (8.4-10.2)
--- NOTE | 2020-10-10 09:25 | Progress Note ---
Assessment and Plan # End stage renal disease: unstable for HD yesterday given tachycardia, hypotension. Hold HD today, no immediate indication, Lytes WNL, O2 sats near 100% on oxygen. Plan to continue maintenance hemodialysis // or prn, will assess daily, plan for HD tomorrow if stable - daily renal labs - avoid nephrotoxins - renally dose meds - renal diet # Hypertension: BP more stable, was soft yesterday, is off losartan. UF only as tolerated # Atrial fibrillation with rapid ventricular response: appreciate cardiology # Anemia: current hemoglobin is around 10->8.7, no acute indication for ESAs with HD, start if wosrening # Bone mineral disorder and secondary hyperparathyroidism: continue binders with meals # Diabetes mellitus type 2 # Covid 19 pneumonia, altered mental status Subjective Date of service: 10/10/20 Principal diagnosis: COVID-19 PNA, AF with RVR Interval history: Transferred to IM for worsening mentation, work of breathing, a-fib with RVR Objective - Exam Narrative Exam: Direct examination not done due to COVID-19, need to limit PPE. Reviewed ex amination of primary team - Vital Signs Vital signs: Vital Signs - 12hr 10/09/20 10/09/20 10/09/20 22:00 23:11 23:21 Temperature Pulse Rate 64 63 Respiratory 22 23 Rate Respiratory 16 Rate [ Generalized] Blood Pressure 109/71 109/71 O2 Sat by Pulse 98 98 Oximetry 10/09/20 10/09/20 10/09/20 23:31 23:41 23:51 Temperature Pulse Rate 60 63 61 Respiratory 20 23 22 Rate Respiratory Rate [ Generalized] Blood Pressure 109/71 109/71 109/71 O2 Sat by Pulse 99 99 99 Oximetry 10/10/20 10/10/20 10/10/20 00:00 00:10 00:11 Temperature 98.7 F Pulse Rate 62 61 62 Respiratory 22 23 Rate Respiratory Rate [ Generalized] Blood Pressure 119/62 119/62 O2 Sat by Pulse 99 100 Oximetry 10/10/20 10/10/20 10/10/20 00:21 00:31 00:41 Temperature Pulse Rate 63 63 65 Respiratory 22 22 22 Rate Respiratory Rate [ Generalized] Blood Pressure 119/62 119/62 119/62 O2 Sat by Pulse 100 99 100 Oximetry 10/10/20 10/10/20 10/10/20 00:51 01:00 01:11 Temperature Pulse Rate 63 63 63 Respiratory 23 21 23 Rate Respiratory Rate [ Generalized] Blood Pressure 119/62 124/62 124/62 O2 Sat by Pulse 100 100 99 Oximetry 10/10/20 10/10/20 10/10/20 01:21 01:31 01:41 Temperature Pulse Rate 63 63 61 Respiratory 22 21 22 Rate Respiratory Rate [ Generalized] Blood Pressure 124/62 124/62 124/62 O2 Sat by Pulse 100 100 100 Oximetry 10/10/20 10/10/20 10/10/20 01:51 02:00 02:11 Temperature Pulse Rate 65 63 62 Respiratory 25 H 23 24 Rate Respiratory Rate [ Generalized] Blood Pressure 124/62 117/69 117/69 O2 Sat by Pulse 100 100 100 Oximetry 10/10/20 10/10/20 10/10/20 02:21 02:31 02:41 Temperature Pulse Rate 63 63 62 Respiratory 26 H 24 23 Rate Respiratory Rate [ Generalized] Blood Pressure 117/69 117/69 117/69 O2 Sat by Pulse 100 99 99 Oximetry 10/10/20 10/10/20 10/10/20 02:51 03:00 03:11 Temperature Pulse Rate 60 59 L 58 L Respiratory 24 23 23 Rate Respiratory Rate [ Generalized] Blood Pressure 117/69 102/37 102/37 O2 Sat by Pulse 100 100 99 Oximetry 10/10/20 10/10/20 10/10/20 03:21 03:31 03:41 Temperature Pulse Rate 62 58 L 60 Respiratory 19 23 24 Rate Respiratory Rate [ Generalized] Blood Pressure 117/69 117/69 117/69 O2 Sat by Pulse 97 99 100 Oximetry 10/10/20 10/10/20 10/10/20 03:51 04:00 04:11 Temperature 99.2 F Pulse Rate 60 57 L 60 Respiratory 25 H 22 25 H Rate Respiratory Rate [ Generalized] Blood Pressure 102/37 109/41 109/41 O2 Sat by Pulse 97 98 99 Oximetry 10/10/20 10/10/20 10/10/20 04:20 04:21 04:31 Temperature Pulse Rate 59 L 63 62 Respiratory 25 H 25 H Rate Respiratory Rate [ Generalized] Blood Pressure 109/41 109/41 O2 Sat by Pulse 99 99 Oximetry 10/10/20 10/10/20 10/10/20 04:36 04:41 04:51 Temperature Pulse Rate 61 62 Respiratory 16 25 H 25 H Rate Respiratory Rate [ Generalized] Blood Pressure 109/41 109/41 O2 Sat by Pulse 99 100 98 Oximetry 10/10/20 10/10/20 10/10/20 05:00 05:11 05:21 Temperature Pulse Rate 60 63 61 Respiratory 25 H 16 17 Rate Respiratory Rate [ Generalized] Blood Pressure 111/47 111/47 111/47 O2 Sat by Pulse 99 97 99 Oximetry 10/10/20 10/10/20 10/10/20 05:31 05:41 05:51 Temperature Pulse Rate 60 62 58 L Respiratory 25 H 15 26 H Rate Respiratory Rate [ Generalized] Blood Pressure 111/47 111/47 111/47 O2 Sat by Pulse 100 100 97 Oximetry 10/10/20 10/10/20 10/10/20 06:00 06:11 06:21 Temperature Pulse Rate 59 L 59 L 59 L Respiratory 31 H 29 H 19 Rate Respiratory Rate [ Generalized] Blood Pressure 103/40 103/40 103/40 O2 Sat by Pulse 99 95 98 Oximetry 10/10/20 10/10/20 10/10/20 06:31 06:41 06:51 Temperature Pulse Rate 59 L 61 61 Respiratory 27 H 26 H 28 H Rate Respiratory Rate [ Generalized] Blood Pressure 103/40 103/40 103/40 O2 Sat by Pulse 96 98 99 Oximetry 10/10/20 10/10/20 10/10/20 07:01 07:11 07:21 Temperature Pulse Rate 60 64 61 Respiratory 28 H 13 21 Rate Respiratory Rate [ Generalized] Blood Pressure 119/44 119/44 119/44 O2 Sat by Pulse 96 99 100 Oximetry 10/10/20 10/10/20 08:00 09:07 Temperature 97.9 F Pulse Rate Respiratory Rate Respiratory Rate [ Generalized] Blood Pressure O2 Sat by Pulse 100 Oximetry - Lab 10/10/20 05:50 10/10/20 05:50 Most recent lab results Calcium 7.1 mg/dL (8.4-10.2) L 10/10/20 05:50 Medications & Allergies - Medications Allergies/Adverse Reactions: Allergies No Known Allergies Allergy (Unverified 02/02/18 15:43) Home Medications: Home Medications Medication Instructions Recorded Confirmed Last Taken Type Aspirin 81 mg PO DAILY 08/13/18 10/06/20 08/11/18 History Acetaminophen [Acetaminophen TAB] 650 mg PO Q4H PRN tablet 09/02/18 10/06/20 Unknown Rx Lispro Insulin [HumaLOG] 0 unit SUB-Q ACHS units 09/02/18 10/06/20 Unknown Rx ISOSORBIDE MONOnitrate [Imdur ER] 60 mg PO DAILY tablet 10/15/18 10/06/20 Unknown Rx carvediloL [Coreg] 12.5 mg PO BID tablet 10/15/18 10/06/20 Unknown Rx Losartan [Cozaar] 50 mg PO QDAY #30 tablet 11/01/18 10/06/20 Unknown Rx Lacosamide [Vimpat] 50 mg PO Q12HR #60 tablet 08/22/19 10/06/20 Unknown Rx Linagliptin [Tradjenta] 5 mg PO QDDIAB #30 tablet 08/22/19 10/06/20 Unknown Rx levETIRAcetam [Keppra TAB] 500 mg PO BID #60 tablet 08/22/19 10/06/20 Unknown Rx Famotidine [Pepcid] 20 mg PO DAILY #30 tablet 08/07/20 10/06/20 Unknown Rx NIFEdipine XL [Procardia Xl] 60 mg PO Q12HR #60 tablet 08/07/20 10/06/20 Unknown Rx hydrALAZINE [Apresoline TAB] 100 mg PO Q8HR #90 tab 08/07/20 10/06/20 Unknown Rx megestroL [Megestrol] 400 mg PO QDAY 30 Days #1 oral.liqd 08/07/20 10/06/20 Unknown Rx Active Medications: Generic Name Dose Route Start Last Admin Trade Name Freq PRN Reason Stop Dose Admin Acetaminophen 650 mg 10/01/20 15:50 Acetaminophen 325 Mg Tab PO Q4H PRN Pain MILD(1-3)/Fever >100.5/VERDE Albuterol 2.5 mg 10/01/20 15:50 Albuterol 2.5 Mg/3 Ml Nebu IH Q4HRT PRN Shortness Of Breath Apixaban 2.5 mg 10/06/20 22:00 10/10/20 00:59 Apixaban 2.5 Mg Tab PO Not Given Q12HR [facility] Protocol Aspirin 81 mg 10/01/20 17:00 10/09/20 12:58 Aspirin 81 Mg Tab Chew PO Not Given QDAY BUTCH Atorvastatin Calcium 20 mg 10/06/20 22:00 10/10/20 00:59 Atorvastatin 20 Mg Tab PO Not Given QHS [facility] Dextrose 50 ml 10/01/20 15:54 10/09/20 12:51 Dextrose 50% In Water (25gm) 50 Ml Syringe IV 50 ml Q30MIN PRN Administration Hypoglycemia Protocol Epoetin Jagjit 10,000 unit 10/02/20 09:19 10/02/20 20:20 Epoetin Jagjit 10,000 Unit/1 Ml Inj IV 10,000 unit ALANA PRN Administration hemodialysis Famotidine 20 mg 10/02/20 10:00 10/09/20 12:58 Famotidine 20 Mg Tab PO Not Given DAILY BUTCH Sodium Chloride 100 mls @ 999 mls/hr 10/02/20 09:19 Nacl 0.9% IV ALANA PRN Hypotension Levetiracetam 500 mg/ Dextrose 105 mls @ 400 mls/hr 10/09/20 10:00 10/10/20 01:01 IV 400 mls/hr Q12HR BUTCH Administration Amiodarone HCl 900 mg/ 500 mls @ 33.333 mls/hr 10/09/20 11:30 10/10/20 07:31 Dextrose IV 0.5 mg/min DIRECT BUTCH 16.667 mls/hr Infusion Protocol 1 MG/MIN Sodium Chloride 1,000 mls @ 75 mls/hr 10/09/20 11:45 10/10/20 05:27 Nacl 0.9% 1000 Ml IV 75 mls/hr DIRECT BUTCH Administration Insulin Glargine 10 units 10/08/20 10:00 10/09/20 10:52 Insulin Glargine 100 Units/Ml SUB-Q Not Given QAM [facility] Insulin Human Lispro 0 unit 10/01/20 16:30 10/10/20 08:35 Insulin Lispro 100 Unit/Ml Vial 3 Ml SUB-Q Not Given ACHS [facility] Protocol Megestrol Acetate 400 mg 10/02/20 10:00 10/09/20 12:58 Megestrol 400 Mg/10 Ml Oral Liqd PO Not Given QDAY [facility] Midodrine 5 mg 10/08/20 12:00 10/09/20 16:50 Midodrine 5 Mg Tab PO Not Given TID@0800,1200,1600 [facility] Ondansetron HCl 4 mg 10/01/20 15:50 Ondansetron 4 Mg/2 Ml Inj IV Q8H PRN Nausea And Vomiting Sodium Chloride 10 ml 10/01/20 22:00 10/10/20 01:14 Sodium Chloride 0.9% 10 Ml Flush Syringe IV 10 ml BID BUTCH Administration Sodium Chloride 10 ml 10/01/20 15:50 10/02/20 09:48 Sodium Chloride 0.9% 10 Ml Flush Syringe IV 10 ml PRN PRN Administration LINE FLUSH Valproic Acid 500 mg 10/04/20 23:45 10/10/20 05:33 Valproic Acid 250 Mg/5 Ml Oral Liqd PO 500 mg Q8HR BUTCH Administration
--- NOTE | 2020-10-10 10:40 | Progress Note ---
Assessment and Plan Assessment and plan: 80 YO Female with HTN, DM, Seizure Disorder, HLD, Diastolic CHF, ESRD on HD(M,W,F), Vascular Dementia, Cerebral Atherosclerosis presents to emergency room after she was noted to have seizure-like activity after being discharged from [facility]. Patient was discharged on Depakote and Keppra. In the ER here, she was found to have metabolic encephalopathy, UTI, accelerated hypertension and pneumonia on chest x-ray. She was initiated on Pneumonia protocol and then admitted to the hospital. --Multifocal pneumonia Secondary to Covid Completed treatment --COVID-19 virus infection Taper off steroids Continue isolation -- Seizure Continue keppra 5 mg twice daily Depakote 750mg BID MRI of the brain without contrast performed-acute changes not found Awaiting EEG Neurology recs appreciated ---Atrial fibrillation with RVR On metoprolol and amiodarone On eliquis Cardiology following -- Urinary tract infection Antibiotics completed --Accelerated hypertension Continue current blood pressure medications-losartan and Coreg -- End-stage renal disease on hemodialysis Hemodialysis as scheduled --Diabetes mellitus Lantus and lispro --Vascular dementia Stable ---DVT prophylaxis SCD to bilateral lower extremities while in bed Heparin drip Hospital course Neurology was consulted for seizure episode. MRI brain and EEG advised. COVID-19 test positive. Patient started on dexamethasone. ID consulted. Patient also on antibiotics for UTI. 10/05. Patients mental status has improved. MRI brain performed showed no acute abnormalities [this was done without contrast as patient has ESRD]. Overnight, patient had A. fib with RVR with rates in the 100-120s. Cardiology has been consulted. Beta-jason dose has been adjusted. Patient started on heparin drip 10/06. Heart rate up to 120's. Patient may need to be started on Cardizem drip however blood pressure is soft. Cardiology will consider amiodarone if not improving. Awaiting cardiology evaluation. She denies any chest pain or palpitations this morning. Afebrile overnight. 10/07. Coreg switched to metoprolol by cardiology. Heparin switched to eliquis. Started on amiodarone drip but as patient could not be transferred to CCU/IMCU due to unavailable beds, she was switched to PO amiodarone by cardiology. 10/08. HR still elevated. BP soft today (normal saline bolus ordered. Started on midodrine for now. Had hypoglycemia overnight. Lantus reduced by 50%. Labs order ed. 10/09. Patient heart rate remains elevated. Consider transferring to [facility] and starting amiodarone drip. We will discuss with cardiology. Patient not taking p.o. therefore we will start Keppra IV. 10/10. Amiodarone drip held per nursing secondary to bradycardia. Continue anticoagulation with heparin drip. Hemodialysis on hold per nephrology given hemodynamic instability. Resume hemodialysis in a.m. if stable. History Interval history: 80 YO Female with HTN, DM, Seizure Disorder, HLD, Diastolic CHF, ESRD on HD(M,W,F), Vascular Dementia, Cerebral Atherosclerosis presents to emergency room after she was noted to have seizure-like activity after being discharged from [facility]. Patient was discharged on Depakote and Keppra. In the ER here, she was found to have metabolic encephalopathy, UTI, accelerated hypertension and pneumonia on chest x-ray. She was initiated on Pneumonia protocol and then admitted to the hospital. No new issues overnight. Patient unable to take p.o. Hospitalist Physical - Constitutional Vitals: Temp Pulse Resp BP Pulse Ox 97.9 F 61 21 119/44 100 10/10/20 08:00 10/10/20 07:21 10/10/20 07:21 10/10/20 07:21 10/10/20 09:07 General appearance: Present: other (Altered mental status) - EENT Eyes: Present: PERRL, EOM intact ENT: hearing intact, clear oral mucosa, dentition normal - Neck Neck: Present: supple, normal ROM - Respiratory Respiratory effort: normal Respiratory: bilateral: CTA - Cardiovascular Rhythm: regular Heart Sounds: Present: S1 & S2. Absent: gallop, rub - Extremities Extremities: no ischemia, No edema, Full ROM - Abdominal General gastrointestinal: soft, non-tender, non-distended, normal bowel sounds - Integumentary Integumentary: Present: clear, warm, dry - Neurologic Neurologic: CNII-XII intact, moves all extremities Results - Labs CBC & Chem 7: 10/10/20 05:50 10/10/20 05:50 Labs: Laboratory Last Values WBC 3.3 K/mm3 (4.5-11.0) L 10/10/20 05:50 RBC 2.73 M/mm3 (3.65-5.03) L 10/10/20 05:50 Hgb 8.7 gm/dl (10.1-14.3) L 10/10/20 05:50 Hct 26.6 % (30.3-42.9) L 10/10/20 05:50 MCV 98 fl (79-97) H 10/10/20 05:50 MCH 32 pg (28-32) 10/10/20 05:50 MCHC 33 % (30-34) 10/10/20 05:50 RDW 18.6 % (13.2-15.2) H 10/10/20 05:50 Plt Count 55 K/mm3 (140-440) L 10/10/20 05:50 Lymph % (Auto) 8.3 % (13.4-35.0) L 10/09/20 03:00 Wilkinson % (Auto) 4.8 % (0.0-7.3) 10/09/20 03:00 Eos % (Auto) 0.8 % (0.0-4.3) 10/09/20 03:00 Baso % (Auto) 0.7 % (0.0-1.8) 10/09/20 03:00 Lymph # (Auto) 0.2 K/mm3 (1.2-5.4) L 10/09/20 03:00 Wilkinson # (Auto) 0.1 K/mm3 (0.0-0.8) 10/09/20 03:00 Eos # (Auto) 0.0 K/mm3 (0.0-0.4) 10/09/20 03:00 Baso # (Auto) 0.0 K/mm3 (0.0-0.1) 10/09/20 03:00 Add Manual Diff Complete 10/03/20 09:30 Total Counted 100 10/03/20 09:30 Seg Neutrophils % 85.4 % (40.0-70.0) H 10/09/20 03:00 Seg Neuts % (Manual) 95.0 % (40.0-70.0) H 10/03/20 09:30 Lymphocytes % (Manual) 1.0 % (13.4-35.0) L 10/03/20 09:30 Monocytes % (Manual) 4.0 % (0.0-7.3) 10/03/20 09:30 Nucleated RBC % 1.0 % (0.0-0.9) H 10/03/20 09:30 Seg Neutrophils # 2.5 K/mm3 (1.8-7.7) 10/09/20 03:00 Seg Neutrophils # Man 4.1 K/mm3 (1.8-7.7) 10/03/20 09:30 Band Neutrophils # 0.0 K/mm3 10/03/20 09:30 Lymphocytes # (Manual) 0.0 K/mm3 (1.2-5.4) L 10/03/20 09:30 Abs React Lymphs (Man) 0.0 K/mm3 10/03/20 09:30 Monocytes # (Manual) 0.2 K/mm3 (0.0-0.8) 10/03/20 09:30 Eosinophils # (Manual) 0.0 K/mm3 (0.0-0.4) 10/03/20 09:30 Basophils # (Manual) 0.0 K/mm3 (0.0-0.1) 10/03/20 09:30 Metamyelocytes # 0.0 K/mm3 10/03/20 09:30 Myelocytes # 0.0 K/mm3 10/03/20 09:30 Promyelocytes # 0.0 K/mm3 10/03/20 09:30 Blast Cells # 0.0 K/mm3 10/03/20 09:30 WBC Morphology Not Reportable 10/03/20 09:30 Hypersegmented Neuts Not Reportable 10/03/20 09:30 Hyposegmented Neuts Not Reportable 10/03/20 09:30 Hypogranular Neuts Not Reportable 10/03/20 09:30 Smudge Cells Not Reportable 10/03/20 09:30 Toxic Granulation Not Reportable 10/03/20 09:30 Toxic Vacuolation Not Reportable 10/03/20 09:30 Dohle Bodies Not Reportable 10/03/20 09:30 Pelger-Huet Anomaly Not Reportable 10/03/20 09:30 Richard Rods Not Reportable 10/03/20 09:30 Platelet Estimate Consistent w auto 10/03/20 09:30 Clumped Platelets Not Reportable 10/03/20 09:30 Plt Clumps, EDTA Not Reportable 10/03/20 09:30 Large Platelets Not Reportable 10/03/20 09:30 Giant Platelets Not Reportable 10/03/20 09:30 Platelet Satelliting Not Reportable 10/03/20 09:30 Plt Morphology Comment Not Reportable 10/03/20 09:30 RBC Morphology Not Reportable 10/03/20 09:30 Dimorphic RBCs Not Reportable 10/03/20 09:30 Polychromasia Few 10/03/20 09:30 Hypochromasia Not Reportable 10/03/20 09:30 Poikilocytosis 1+ 10/03/20 09:30 Anisocytosis 1+ 10/03/20 09:30 Microcytosis Not Reportable 10/03/20 09:30 Macrocytosis Not Reportable 10/03/20 09:30 Spherocytes Not Reportable 10/03/20 09:30 Pappenheimer Bodies Not Reportable 10/03/20 09:30 Sickle Cells Not Reportable 10/03/20 09:30 Target Cells Few 10/03/20 09:30 Tear Drop Cells Not Reportable 10/03/20 09:30 Ovalocytes Few 10/03/20 09:30 Helmet Cells Not Reportable 10/03/20 09:30 [place] Bodies Not Reportable 10/03/20 09:30 [place] Rings Not Reportable 10/03/20 09:30 [place] Cells Few 10/03/20 09:30 Bite Cells Not Reportable 10/03/20 09:30 Crenated Cell Not Reportable 10/03/20 09:30 Elliptocytes Not Reportable 10/03/20 09:30 Acanthocytes (Spur) Not Reportable 10/03/20 09:30 Rouleaux Not Reportable 10/03/20 09:30 Hemoglobin C Crystals Not Reportable 10/03/20 09:30 Schistocytes Not Reportable 10/03/20 09:30 Malaria parasites Not Reportable 10/03/20 09:30 Cristofer Bodies Not Reportable 10/03/20 09:30 Hem Pathologist Commnt No 10/03/20 09:30 PT 13.4 Sec. (12.2-14.9) 10/05/20 20:39 INR 1.04 (0.87-1.13) 10/05/20 20:39 APTT 37.6 Sec. (24.2-36.6) H 10/05/20 20:39 D-Dimer 1609.74 ng/mlDDU (0-234) H 10/01/20 16:16 Heparin Anti-Xa Level 0.18 U.I./ml (0.3-0.7) L 10/06/20 05:56 Sodium 134 mmol/L (137-145) L 10/10/20 05:50 Potassium 4.1 mmol/L (3.6-5.0) 10/10/20 05:50 Chloride 94.6 mmol/L (98-107) L 10/10/20 05:50 Carbon Dioxide 27 mmol/L (22-30) 10/10/20 05:50 Anion Gap 17 mmol/L 10/10/20 05:50 BUN 52 mg/dL (7-17) H 10/10/20 05:50 Creatinine 4.9 mg/dL (0.6-1.2) H 10/10/20 05:50 Estimated GFR 10 ml/min 10/10/20 05:50 BUN/Creatinine Ratio 11 % 10/10/20 05:50 Glucose 161 mg/dL (65-100) H 10/10/20 05:50 POC Glucose 150 mg/dL (70-105) H 10/10/20 08:27 Lactic Acid 1.10 mmol/L (0.7-2.0) 10/01/20 16:16 Calcium 7.1 mg/dL (8.4-10.2) L 10/10/20 05:50 Ferritin 1926.0 ng/mL (10.0-200.0) H 10/03/20 09:30 Total Bilirubin 0.30 mg/dL (0.1-1.2) 10/09/20 03:00 AST 31 units/L (5-40) 10/09/20 03:00 ALT 9 units/L (7-56) 10/09/20 03:00 Alkaline Phosphatase 38 units/L (35-129) 10/09/20 03:00 Ammonia 20.0 umol/L (25-60) L 10/01/20 11:39 Lactate Dehydrogenase 241 units/L (91-180) H 10/03/20 09:30 Total Creatine Kinase 54 units/L (30-135) 10/01/20 11:39 C-Reactive Protein 2.70 mg/dL (0.00-1.30) H 10/03/20 09:30 Serum Total Protein 5.6 g/dL (6.1-8.1) L 10/06/20 05:56 Total Protein 4.7 g/dL (6.3-8.2) L 10/09/20 03:00 Albumin 2.3 g/dL (3.9-5) L 10/09/20 03:00 Albumin/Globulin Ratio 1.0 % 10/09/20 03:00 Qmcuq-9-Hedecichb 0.3 g/dL (0.2-0.3) 10/06/20 05:56 Ukmqs-0-Bhdygpxge 0.7 g/dL (0.5-0.9) 10/06/20 05:56 Beta Globulins 0.4 g/dL (0.2-0.5) 10/06/20 05:56 Gamma Globulins 1.5 g/dL (0.8-1.7) 10/06/20 05:56 Abnorm Protein Band 1 see below 10/06/20 05:56 PEP Interpretation see below H 10/06/20 05:56 Procalcitonin 0.52 ng/mL (<0.15) 10/03/20 09:30 TSH 6.100 mlU/mL (0.270-4.200) H 10/01/20 11:39 Free T4 1.40 ng/dL (0.76-1.46) 10/03/20 09:30 Urine Color Dagmar (Yellow) 10/01/20 13:15 Urine Turbidity Cloudy (Clear) 10/01/20 13:15 Urine pH 7.0 (5.0-7.0) 10/01/20 13:15 Ur Specific Mason 1.012 (1.003-1.030) 10/01/20 13:15 Urine Protein >500 mg/dL (Negative) 10/01/20 13:15 Urine Glucose (UA) Neg mg/dL (Negative) 10/01/20 13:15 Urine Ketones Neg mg/dL (Negative) 10/01/20 13:15 Urine Blood Sm (Negative) 10/01/20 13:15 Urine Nitrite Neg (Negative) 10/01/20 13:15 Urine Bilirubin Neg (Negative) 10/01/20 13:15 Urine Urobilinogen < 2.0 mg/dL (<2.0) 10/01/20 13:15 Ur Leukocyte Esterase Lg (Negative) 10/01/20 13:15 Urine WBC (Auto) > 182.0 /HPF (0.0-6.0) H 10/01/20 13:15 Urine RBC (Auto) 18.0 /HPF (0.0-6.0) 10/01/20 13:15 U Epithel Cells (Auto) 4.0 /HPF (0-13.0) 10/01/20 13:15 Urine Bacteria (Auto) 1+ /HPF (Negative) 10/01/20 13:15 Urine WBC Clumps 2+ /HPF 10/01/20 13:15 Urine Mucus Few /HPF 10/01/20 13:15 Random Vancomycin 7.6 ug/mL (0-40.0) 10/03/20 09:30 Salicylates < 0.3 mg/dL (2.8-20.0) L 10/01/20 11:39 Urine Opiates Screen Negative 10/01/20 13:15 Urine Methadone Screen Negative 10/01/20 13:15 Acetaminophen 5.0 ug/mL (10.0-30.0) L 10/01/20 11:39 Ur Barbiturates Screen Negative 10/01/20 13:15 Ur Phencyclidine Scrn Negative 10/01/20 13:15 Ur Amphetamines Screen Negative 10/01/20 13:15 U Benzodiazepines Scrn Negative 10/01/20 13:15 Urine Cocaine Screen Negative 10/01/20 13:15 U Marijuana (THC) Screen Negative 10/01/20 13:15 Drugs of Abuse Note Disclamer 10/01/20 13:15 Coronavirus (PCR) Positive (Negative) A 10/02/20 Unknown Barrientos/IV: Voiding Method Incontinent IV Catheter Type [right chest] PICC Line IV Catheter Type [Right INT / Saline Lock Forearm] IV Catheter Type [Left Upper dialysis access arm] Active Medications - Current Medications Current Medications: Generic Name Dose Route Start Last Admin Trade Name Freq PRN Reason Stop Dose Admin Acetaminophen 650 mg 10/01/20 15:50 Acetaminophen 325 Mg Tab PO Q4H PRN Pain MILD(1-3)/Fever >100.5/VERDE Albuterol 2.5 mg 10/01/20 15:50 Albuterol 2.5 Mg/3 Ml Nebu IH Q4HRT PRN Shortness Of Breath Apixaban 2.5 mg 10/06/20 22:00 10/10/20 00:59 Apixaban 2.5 Mg Tab PO Not Given Q12HR [facility] Protocol Aspirin 81 mg 10/01/20 17:00 10/09/20 12:58 Aspirin 81 Mg Tab Chew PO Not Given QDAY BUTCH Atorvastatin Calcium 20 mg 10/06/20 22:00 10/10/20 00:59 Atorvastatin 20 Mg Tab PO Not Given QHS [facility] Dextrose 50 ml 10/01/20 15:54 10/09/20 12:51 Dextrose 50% In Water (25gm) 50 Ml Syringe IV 50 ml Q30MIN PRN Administration Hypoglycemia Protocol Epoetin Jagjit 10,000 unit 10/02/20 09:19 10/02/20 20:20 Epoetin Jagjit 10,000 Unit/1 Ml Inj IV 10,000 unit ALANA PRN Administration hemodialysis Famotidine 20 mg 10/02/20 10:00 10/09/20 12:58 Famotidine 20 Mg Tab PO Not Given DAILY [facility] Sodium Chloride 100 mls @ 999 mls/hr 10/02/20 09:19 Nacl 0.9% IV ALANA PRN Hypotension Levetiracetam 500 mg/ Dextrose 105 mls @ 400 mls/hr 10/09/20 10:00 10/10/20 01:01 IV 400 mls/hr Q12HR BUTCH Administration Sodium Chloride 1,000 mls @ 75 mls/hr 10/09/20 11:45 10/10/20 05:27 Nacl 0.9% 1000 Ml IV 75 mls/hr DIRECT BUTCH Administration Insulin Glargine 10 units 10/08/20 10:00 10/09/20 10:52 Insulin Glargine 100 Units/Ml SUB-Q Not Given QAM [facility] Insulin Human Lispro 0 unit 10/01/20 16:30 10/10/20 08:35 Insulin Lispro 100 Unit/Ml Vial 3 Ml SUB-Q Not Given ACHS [facility] Protocol Megestrol Acetate 400 mg 10/02/20 10:00 10/09/20 12:58 Megestrol 400 Mg/10 Ml Oral Liqd PO Not Given QDAY [facility] Midodrine 5 mg 10/08/20 12:00 10/09/20 16:50 Midodrine 5 Mg Tab PO Not Given TID@0800,1200,1600 BUTCH Ondansetron HCl 4 mg 10/01/20 15:50 Ondansetron 4 Mg/2 Ml Inj IV Q8H PRN Nausea And Vomiting Sodium Chloride 10 ml 10/01/20 22:00 10/10/20 01:14 Sodium Chloride 0.9% 10 Ml Flush Syringe IV 10 ml BID BUTCH Administration Sodium Chloride 10 ml 10/01/20 15:50 10/02/20 09:48 Sodium Chloride 0.9% 10 Ml Flush Syringe IV 10 ml PRN PRN Administration LINE FLUSH Valproic Acid 500 mg 10/04/20 23:45 10/10/20 05:33 Valproic Acid 250 Mg/5 Ml Oral Liqd PO 500 mg Q8HR BUTCH Administration Nutrition/Malnutrition Assess - Dietary Evaluation Nutrition/Malnutrition Findings: Nutrition Notes Start: 10/02/20 14:56 Freq: Status: Active Protocol: Document 10/04/20 10:36 AB (Rec: 10/04/20 10:58 AB [id number]) Co-Sign 10/04/20 10:36 MK Nutrition Notes Initial or Follow up Brief Note Current Diagnosis CKD (stage V CKD),Coronary Artery Disease,Diabetes, Hyperlipidemia Other Pertinent Diagnosis COVID-19 (+), Encephalopathy, UTI, GERD, pneu, seizure d/o Current Diet Mechanical soft Labs/Tests Na 134 BUN 50 Cr 3.9 POC BG 291 Pertinent Medications Solu-medrol Epoetin Jagjit Height 5 ft 5 in Weight 53 kg Central Body Weight (kg) 56.81 BMI 19.4 Weight Status Underweight Subjective/Other Information F/U for stable intakes and wt. ST note from 10/03 approved pt for mechanical soft diet w/ chopped meats. Pt receiving HD today. Per RN, pt are 100% of breakfast and is feeding self . RN also stated that she has been hungry more often. Nutrition Intervention Change Diet Order: Add renal/consistent carb Anticipated Discharge Needs: Renal/consistent carb + mechanical soft Follow-Up By: 10/10/20 Additional Comments F/U for stable intakes
[2020-10-10] MEDS: MIDODRINE 5 MG TAB PO SCH ×4 (11:45→16:45)
[2020-10-10] MEDS: ASPIRIN 81 MG TAB CHEW PO SCH (11:46)
[2020-10-10] MEDS: INSULIN GLARGINE 100 UNITS/ML SUB-Q SCH (11:48)
[2020-10-10] MEDS: FAMOTIDINE 20 MG TAB PO SCH (11:48)
[2020-10-10] MEDS: MEGESTROL 400 MG/10 ML ORAL LIQD PO SCH (11:48)
--- NOTE | 2020-10-10 11:51 | Progress Note ---
Assessment and Plan tele reviewed - in AFib HR 50-60s. D/c IV amio, consider PO lopressor if necessary for HR control and if BPs permit. Pt on mechanical soft diet. Cont Eliquis. BPs improving today - cont IVF. Will consider repeat echo when clinically stable/upon resolution of COVID-19 infection. Case reviewed in conjunction with Dr. Mckeno, who agrees with the assessment and plan of care. - Patient Problems (1) Pneumonia due to COVID-19 virus Current Visit: Yes Status: Acute (2) Atrial fibrillation with RVR Current Visit: Yes Status: Acute Plan to address problem: apparent new onset - initiated on Eliquis (3) NSVT (nonsustained ventricular tachycardia) Current Visit: Yes Status: Acute (4) Mild aortic stenosis Current Visit: Yes Status: Chronic (5) Severe pulmonary hypertension Current Visit: Yes Status: Chronic (6) End-stage renal disease on hemodialysis Current Visit: Yes Status: Chronic (7) Anemia Current Visit: Yes Status: Chronic Qualifiers: Anemia type: unspecified type Qualified Code(s): D64.9 - Anemia, unspecified (8) Seizure Current Visit: Yes Status: Chronic (9) Elevated TSH Current Visit: Yes Status: Acute Plan to address problem: Mgmt per Primary (10) Hypertension Current Visit: Yes Status: Chronic Qualifiers: Hypertension type: essential hypertension Qualified Code(s): I10 - Essential (primary) hypertension (11) Hyperlipidemia Current Visit: Yes Status: Chronic Qualifiers: Hyperlipidemia type: mixed hyperlipidemia Qualified Code(s): E78.2 - Mixed hyperlipidemia (12) T2DM (type 2 diabetes mellitus) Current Visit: Yes Status: Chronic (13) Vascular dementia Current Visit: Yes Status: Chronic Qualifiers: Dementia behavioral disturbance: without behavioral disturbance Qualified Code(s): F01.50 - Vascular dementia without behavioral disturbance Subjective Date of service: 10/10/20 Principal diagnosis: COVID-19 PNA, AF with RVR Interval history: pt resting in bed, lethargic, NAD. tele reviewed - in AFib HR 50-60s. Objective Last Vital Signs Temp 97.9 F 10/10/20 08:00 Pulse 61 10/10/20 07:21 Resp 21 10/10/20 07:21 BP 119/44 10/10/20 07:21 Pulse Ox 100 10/10/20 09:07 - Physical Examination Narrative exam: agree with physical examination per primary team - Labs and Meds CBC 10/10/20 Range/Units 05:50 WBC 3.3 L (4.5-11.0) K/mm3 RBC 2.73 L (3.65-5.03) M/mm3 Hgb 8.7 L (10.1-14.3) gm/dl Hct 26.6 L (30.3-42.9) % Plt Count 55 L (140-440) K/mm3 Comprehensive Metabolic Panel 10/06/20 10/10/20 Range/Units 05:56 05:50 Sodium 134 L (137-145) mmol/L Potassium 4.1 (3.6-5.0) mmol/L Chloride 94.6 L (98-107) mmol/L Carbon Dioxide 27 (22-30) mmol/L BUN 52 H (7-17) mg/dL Creatinine 4.9 H (0.6-1.2) mg/dL Glucose 161 H (65-100) mg/dL Calcium 7.1 L (8.4-10.2) mg/dL Albumin 2.5 L (3.8-4.8) g/dL - Imaging and Cardiology EKG: report reviewed, image reviewed Echo: report reviewed (07/2019 LA mod dilated, mild-mod MR, mild-mod TR, mild , mild concentric LVH, EF 65-70%, severe pulm HTN, RVSP 83 mmHg) - Telemetry EKG Rhythm: Atrial Fibrillation - EKG Sinus rhythms and dysrhythmias: sinus rhythm
[2020-10-11] MEDS: INSULIN LISPRO 100 UNIT/ML VIAL 3 mL SUB-Q SCH ×3 (00:33→11:30)
[2020-10-11] MEDS: levETIRAcetam 500 MG in DEXTROSE 5% IN WATER 100 ML IV SCH ×3 (00:33→23:12)
[2020-10-11] MEDS: APIXABAN 2.5 MG TAB PO SCH ×3 (00:33→23:19)
[2020-10-11] MEDS: VALPROIC ACID 250 MG/5 ML ORAL LIQD PO SCH ×3 (00:33→23:30)
[2020-10-11] MEDS: DEXTROSE 50% IN WATER (25GM) 50 ML SYRINGE IV PRN ×2 (00:34→12:25)
[2020-10-11 05:47] LABS: Hematocrit 29.9 % (30.3-42.9); Hemoglobin 9.7 gm/dl (10.1-14.3)
[2020-10-11] MEDS: MIDODRINE 5 MG TAB PO SCH ×2 (08:00→12:19)
[2020-10-11] MEDS: MEGESTROL 400 MG/10 ML ORAL LIQD PO SCH (10:00)
[2020-10-11] MEDS: ASPIRIN 81 MG TAB CHEW PO SCH (10:00)
[2020-10-11] MEDS: FAMOTIDINE 20 MG TAB PO SCH (10:00)
[2020-10-11] MEDS: INSULIN GLARGINE 100 UNITS/ML SUB-Q SCH (10:00)
--- NOTE | 2020-10-11 11:41 | Progress Note ---
Assessment and Plan tele reviewed - in AFib HR 50-60s. BPs improving and pt is tolerating PO meds. Initiate lopressor. Anemia and worsening thrombocytopenia noted, pt is currently receiving low dose Eliquis and did receive several days of IV heparin prior to initiation of Eliquis - consider r/o HIT per primary team. Cont Eliquis unless contraindicated. Will consider repeat echo when clinically stable/upon resolution of COVID-19 infection. Case reviewed in conjunction with Dr. Mckeon, who agrees with the assessment and plan of care. - Patient Problems (1) Pneumonia due to COVID-19 virus Current Visit: Yes Status: Acute (2) Atrial fibrillation with RVR Current Visit: Yes Status: Acute Plan to address problem: apparent new onset - initiated on Eliquis (3) NSVT (nonsustained ventricular tachycardia) Current Visit: Yes Status: Acute (4) Mild aortic stenosis Current Visit: Yes Status: Chronic (5) Severe pulmonary hypertension Current Visit: Yes Status: Chronic (6) End-stage renal disease on hemodialysis Current Visit: Yes Status: Chronic (7) Anemia Current Visit: Yes Status: Chronic Qualifiers: Anemia type: unspecified type Qualified Code(s): D64.9 - Anemia, unsp ecified (8) Seizure Current Visit: Yes Status: Chronic (9) Elevated TSH Current Visit: Yes Status: Acute Plan to address problem: Mgmt per Primary (10) Hypertension Current Visit: Yes Status: Chronic Qualifiers: Hypertension type: essential hypertension Qualified Code(s): I10 - Essential (primary) hypertension (11) Hyperlipidemia Current Visit: Yes Status: Chronic Qualifiers: Hyperlipidemia type: mixed hyperlipidemia Qualified Code(s): E78.2 - Mixed hyperlipidemia (12) T2DM (type 2 diabetes mellitus) Current Visit: Yes Status: Chronic (13) Vascular dementia Current Visit: Yes Status: Chronic Qualifiers: Dementia behavioral disturbance: without behavioral disturbance Qualified Code(s): F01.50 - Vascular dementia without behavioral disturbance Subjective Date of service: 10/11/20 Principal diagnosis: COVID-19 PNA, AF with RVR Interval history: pt resting in bed, lethargic, NAD. tele reviewed - in AFib HR 50-60s. Objective Last Vital Signs Temp 97.8 F 10/10/20 20:00 Pulse 79 10/11/20 06:01 Resp 31 H 01/21/21 06:01 BP 158/56 10/11/20 06:01 Pulse Ox 98 10/11/20 09:49 - Physical Examination Narrative exam: agree with physical examination per primary team - Labs and Meds CBC 10/11/20 Range/Units 04:27 Hgb 9.7 L (10.1-14.3) gm/dl Hct 29.9 L (30.3-42.9) % Plt Count 52 L (140-440) K/mm3 - Imaging and Cardiology EKG: report reviewed, image reviewed Echo: report reviewed (07/2019 LA mod dilated, mild-mod MR, mild-mod TR, mild , mild concentric LVH, EF 65-70%, severe pulm HTN, RVSP 83 mmHg) - Telemetry EKG Rhythm: Sinus Rhythm - EKG Sinus rhythms and dysrhythmias: sinus rhythm
--- NOTE | 2020-10-11 11:51 | Progress Note ---
Assessment and Plan Assessment and plan: 80 YO Female with HTN, DM, Seizure Disorder, HLD, Diastolic CHF, ESRD on HD(M,W,F), Vascular Dementia, Cerebral Atherosclerosis presents to emergency room after she was noted to have seizure-like activity after being discharged from [facility]. Patient was discharged on Depakote and Keppra. In the ER here, she was found to have metabolic encephalopathy, UTI, accelerated hypertension and pneumonia on chest x-ray. She was initiated on Pneumonia protocol and then admitted to the hospital. --Multifocal pneumonia Secondary to Covid Completed treatment --COVID-19 virus infection Taper off steroids Continue isolation -- Seizure Continue keppra 500 mg twice daily Depakote 750mg BID MRI of the brain without contrast performed-acute changes not found Awaiting EEG Neurology recs appreciated ---Atrial fibrillation with RVR On metoprolol and amiodarone On eliquis Cardiology following -- Urinary tract infection Antibiotics completed --Accelerated hypertension Continue current blood pressure medications-losartan and Coreg -- End-stage renal disease on hemodialysis Hemodialysis as scheduled --Diabetes mellitus Lantus and lispro --Vascular dementia Stable ---DVT prophylaxis SCD to bilateral lower extremities while in bed Heparin drip Hospital course Neurology was consulted for seizure episode. MRI brain and EEG advised. COVID- 19 test positive. Patient started on dexamethasone. ID consulted. Patient also on antibiotics for UTI. 10/05. Patients mental status has improved. MRI brain performed showed no acute abnormalities [this was done without contrast as patient has ESRD]. Overnight, patient had A. fib with RVR with rates in the 100-120s. Cardiology has been consulted. Beta-jason dose has been adjusted. Patient started on heparin drip 10/06. Heart rate up to 120's. Patient may need to be started on Cardizem drip however blood pressure is soft. Cardiology will consider amiodarone if not improving. Awaiting cardiology evaluation. She denies any chest pain or palpitations this morning. Afebrile overnight. 10/07. Coreg switched to metoprolol by cardiology. Heparin switched to eliquis. Started on amiodarone drip but as patient could not be transferred to CCU/IMCU due to unavailable beds, she was switched to PO amiodarone by cardiology. 10/08. HR still elevated. BP soft today (normal saline bolus ordered. Started on midodrine for now. Had hypoglycemia overnight. Lantus reduced by 50%. Labs ord ered. 10/09. Patient heart rate remains elevated. Consider transferring to [facility] [place] and starting amiodarone drip. We will discuss with cardiology. Patient not taking p.o. therefore we will start Keppra IV. 10/10. Amiodarone drip held per nursing secondary to bradycardia. Continue anticoagulation with heparin drip. Hemodialysis on hold per nephrology given hemodynamic instability. Resume hemodialysis in a.m. if stable. 10/11. Repeat echocardiogram when patient clinically stable. Patient currently rate controlled on metoprolol 25 mg twice daily. Continue low-dose Eliquis. Check HIT panel. Continue Lantus and sliding scale insulin. Continue AEDs and seizure precautions. Continue midodrine History Interval history: 80 YO Female with HTN, DM, Seizure Disorder, HLD, Diastolic CHF, ESRD on HD(M,W,F), Vascular Dementia, Cerebral Atherosclerosis presents to emergency room after she was noted to have seizure-like activity after being discharged from [facility]. Patient was discharged on Depakote and Keppra. In the ER here, she was found to have metabolic encephalopathy, UTI, accelerated hypertension and pneumonia on chest x-ray. She was initiated on Pneumonia protocol and then admitted to the hospital. No new issues overnight. Patient unable to take p.o. Hospitalist Physical - Constitutional Vitals: Temp Pulse Resp BP Pulse Ox 97.8 F 79 31 H 158/56 98 10/10/20 20:00 10/11/20 06:01 10/11/20 06:01 10/11/20 06:01 10/11/20 09:49 General appearance: Present: other (Altered mental status) - EENT Eyes: Present: PERRL, EOM intact ENT: hearing intact, clear oral mucosa, dentition normal - Neck Neck: Present: supple, normal ROM - Respiratory Respiratory effort: normal Respiratory: bilateral: CTA - Cardiovascular Rhythm: regular Heart Sounds: Present: S1 & S2. Absent: gallop, rub - Extremities Extremities: no ischemia, No edema, Full ROM - Abdominal General gastrointestinal: soft, non-tender, non-distended, normal bowel sounds - Integumentary Integumentary: Present: clear, warm, dry - Neurologic Neurologic: CNII-XII intact, moves all extremities Results - Labs CBC & Chem 7: 10/11/20 04:27 10/10/20 05:50 Labs: Laboratory Last Values WBC 3.3 K/mm3 (4.5-11.0) L 10/10/20 05:50 RBC 2.73 M/mm3 (3.65-5.03) L 10/10/20 05:50 Hgb 9.7 gm/dl (10.1-14.3) L 10/11/20 04:27 Hct 29.9 % (30.3-42.9) L 10/11/20 04:27 MCV 98 fl (79-97) H 10/10/20 05:50 MCH 32 pg (28-32) 10/10/20 05:50 MCHC 33 % (30-34) 10/10/20 05:50 RDW 18.6 % (13.2-15.2) H 10/10/20 05:50 Plt Count 52 K/mm3 (140-440) L 10/11/20 04:27 Lymph % (Auto) 8.3 % (13.4-35.0) L 10/09/20 03:00 Lares % (Auto) 4.8 % (0.0-7.3) 10/09/20 03:00 Eos % (Auto) 0.8 % (0.0-4.3) 10/09/20 03:00 Baso % (Auto) 0.7 % (0.0-1.8) 10/09/20 03:00 Lymph # (Auto) 0.2 K/mm3 (1.2-5.4) L 10/09/20 03:00 Lares # (Auto) 0.1 K/mm3 (0.0-0.8) 10/09/20 03:00 Eos # (Auto) 0.0 K/mm3 (0.0-0.4) 10/09/20 03:00 Baso # (Auto) 0.0 K/mm3 (0.0-0.1) 10/09/20 03:00 Add Manual Diff Complete 10/03/20 09:30 Total Counted 100 10/03/20 09:30 Seg Neutrophils % 85.4 % (40.0-70.0) H 10/09/20 03:00 Seg Neuts % (Manual) 95.0 % (40.0-70.0) H 10/03/20 09:30 Lymphocytes % (Manual) 1.0 % (13.4-35.0) L 10/03/20 09:30 Monocytes % (Manual) 4.0 % (0.0-7.3) 10/03/20 09:30 Nucleated RBC % 1.0 % (0.0-0.9) H 10/03/20 09:30 Seg Neutrophils # 2.5 K/mm3 (1.8-7.7) 10/09/20 03:00 Seg Neutrophils # Man 4.1 K/mm3 (1.8-7.7) 10/03/20 09:30 Band Neutrophils # 0.0 K/mm3 10/03/20 09:30 Lymphocytes # (Manual) 0.0 K/mm3 (1.2-5.4) L 10/03/20 09:30 Abs React Lymphs (Man) 0.0 K/mm3 10/03/20 09:30 Monocytes # (Manual) 0.2 K/mm3 (0.0-0.8) 10/03/20 09:30 Eosinophils # (Manual) 0.0 K/mm3 (0.0-0.4) 10/03/20 09:30 Basophils # (Manual) 0.0 K/mm3 (0.0-0.1) 10/03/20 09:30 Metamyelocytes # 0.0 K/mm3 10/03/20 09:30 Myelocytes # 0.0 K/mm3 10/03/20 09:30 Promyelocytes # 0.0 K/mm3 10/03/20 09:30 Blast Cells # 0.0 K/mm3 10/03/20 09:30 WBC Morphology Not Reportable 10/03/20 09:30 Hypersegmented Neuts Not Reportable 10/03/20 09:30 Hyposegmented Neuts Not Reportable 10/03/20 09:30 Hypogranular Neuts Not Reportable 10/03/20 09:30 Smudge Cells Not Reportable 10/03/20 09:30 Toxic Granulation Not Reportable 10/03/20 09:30 Toxic Vacuolation Not Reportable 10/03/20 09:30 Dohle Bodies Not Reportable 10/03/20 09:30 Pelger-Huet Anomaly Not Reportable 10/03/20 09:30 Richard Rods Not Reportable 10/03/20 09:30 Platelet Estimate Consistent w auto 10/03/20 09:30 Clumped Platelets Not Reportable 10/03/20 09:30 Plt Clumps, EDTA Not Reportable 10/03/20 09:30 Large Platelets Not Reportable 10/03/20 09:30 Giant Platelets Not Reportable 10/03/20 09:30 Platelet Satelliting Not Reportable 10/03/20 09:30 Plt Morphology Comment Not Reportable 10/03/20 09:30 RBC Morphology Not Reportable 10/03/20 09:30 Dimorphic RBCs Not Reportable 10/03/20 09:30 Polychromasia Few 10/03/20 09:30 Hypochromasia Not Reportable 10/03/20 09:30 Poikilocytosis 1+ 10/03/20 09:30 Anisocytosis 1+ 10/03/20 09:30 Microcytosis Not Reportable 10/03/20 09:30 Macrocytosis Not Reportable 10/03/20 09:30 Spherocytes Not Reportable 10/03/20 09:30 Pappenheimer Bodies Not Reportable 10/03/20 09:30 Sickle Cells Not Reportable 10/03/20 09:30 Target Cells Few 10/03/20 09:30 Tear Drop Cells Not Reportable 10/03/20 09:30 Ovalocytes Few 10/03/20 09:30 Helmet Cells Not Reportable 10/03/20 09:30 [place] Bodies Not Reportable 10/03/20 09:30 [place] Rings Not Reportable 10/03/20 09:30 Morena Cells Few 10/03/20 09:30 Bite Cells Not Reportable 10/03/20 09:30 Crenated Cell Not Reportable 10/03/20 09:30 Elliptocytes Not Reportable 10/03/20 09:30 Acanthocytes (Spur) Not Reportable 10/03/20 09:30 Rouleaux Not Reportable 10/03/20 09:30 Hemoglobin C Crystals Not Reportable 10/03/20 09:30 Schistocytes Not Reportable 10/03/20 09:30 Malaria parasites Not Reportable 10/03/20 09:30 Cristofer Bodies Not Reportable 10/03/20 09:30 Hem Pathologist Commnt No 10/03/20 09:30 PT 13.4 Sec. (12.2-14.9) 10/05/20 20:39 INR 1.04 (0.87-1.13) 10/05/20 20:39 APTT 37.6 Sec. (24.2-36.6) H 10/05/20 20:39 D-Dimer 1609.74 ng/mlDDU (0-234) H 10/01/20 16:16 Heparin Anti-Xa Level 0.18 U.I./ml (0.3-0.7) L 10/06/20 05:56 Sodium 134 mmol/L (137-145) L 10/10/20 05:50 Potassium 4.1 mmol/L (3.6-5.0) 10/10/20 05:50 Chloride 94.6 mmol/L (98-107) L 10/10/20 05:50 Carbon Dioxide 27 mmol/L (22-30) 10/10/20 05:50 Anion Gap 17 mmol/L 10/10/20 05:50 BUN 52 mg/dL (7-17) H 10/10/20 05:50 Creatinine 4.9 mg/dL (0.6-1.2) H 10/10/20 05:50 Estimated GFR 10 ml/min 10/10/20 05:50 BUN/Creatinine Ratio 11 % 10/10/20 05:50 Glucose 161 mg/dL (65-100) H 10/10/20 05:50 POC Glucose 68 mg/dL (70-105) L 10/11/20 11:15 Lactic Acid 1.10 mmol/L (0.7-2.0) 10/01/20 16:16 Calcium 7.1 mg/dL (8.4-10.2) L 10/10/20 05:50 Ferritin 1926.0 ng/mL (10.0-200.0) H 10/03/20 09:30 Total Bilirubin 0.30 mg/dL (0.1-1.2) 10/09/20 03:00 AST 31 units/L (5-40) 10/09/20 03:00 ALT 9 units/L (7-56) 10/09/20 03:00 Alkaline Phosphatase 38 units/L (35-129) 10/09/20 03:00 Ammonia 20.0 umol/L (25-60) L 10/01/20 11:39 Lactate Dehydrogenase 241 units/L (91-180) H 10/03/20 09:30 Total Creatine Kinase 54 units/L (30-135) 10/01/20 11:39 C-Reactive Protein 2.70 mg/dL (0.00-1.30) H 10/03/20 09:30 Serum Total Protein 5.6 g/dL (6.1-8.1) L 10/06/20 05:56 Total Protein 4.7 g/dL (6.3-8.2) L 10/09/20 03:00 Albumin 2.3 g/dL (3.9-5) L 10/09/20 03:00 Albumin/Globulin Ratio 1.0 % 10/09/20 03:00 Rmvcu-8-Ktbsrgkjh 0.3 g/dL (0.2-0.3) 10/06/20 05:56 Jidsd-9-Djdcjpoae 0.7 g/dL (0.5-0.9) 10/06/20 05:56 Beta Globulins 0.4 g/dL (0.2-0.5) 10/06/20 05:56 Gamma Globulins 1.5 g/dL (0.8-1.7) 10/06/20 05:56 Abnorm Protein Band 1 see below 10/06/20 05:56 PEP Interpretation see below H 10/06/20 05:56 Procalcitonin 0.52 ng/mL (<0.15) 10/03/20 09:30 TSH 6.100 mlU/mL (0.270-4.200) H 10/01/20 11:39 Free T4 1.40 ng/dL (0.76-1.46) 10/03/20 09:30 Urine Color [place] (Yellow) 10/01/20 13:15 Urine Turbidity Cloudy (Clear) 10/01/20 13:15 Urine pH 7.0 (5.0-7.0) 10/01/20 13:15 Ur Specific [place] 1.012 (1.003-1.030) 10/01/20 13:15 Urine Protein >500 mg/dL (Negative) 10/01/20 13:15 Urine Glucose (UA) Neg mg/dL (Negative) 10/01/20 13:15 Urine Ketones Neg mg/dL (Negative) 10/01/20 13:15 Urine Blood Sm (Negative) 10/01/20 13:15 Urine Nitrite Neg (Negative) 10/01/20 13:15 Urine Bilirubin Neg (Negative) 10/01/20 13:15 Urine Urobilinogen < 2.0 mg/dL (<2.0) 10/01/20 13:15 Ur Leukocyte Esterase Lg (Negative) 10/01/20 13:15 Urine WBC (Auto) > 182.0 /HPF (0.0-6.0) H 10/01/20 13:15 Urine RBC (Auto) 18.0 /HPF (0.0-6.0) 10/01/20 13:15 U Epithel Cells (Auto) 4.0 /HPF (0-13.0) 10/01/20 13:15 Urine Bacteria (Auto) 1+ /HPF (Negative) 10/01/20 13:15 Urine WBC Clumps 2+ /HPF 10/01/20 13:15 Urine Mucus Few /HPF 10/01/20 13:15 Random Vancomycin 7.6 ug/mL (0-40.0) 10/03/20 09:30 Salicylates < 0.3 mg/dL (2.8-20.0) L 10/01/20 11:39 Urine Opiates Screen Negative 10/01/20 13:15 Urine Methadone Screen Negative 10/01/20 13:15 Acetaminophen 5.0 ug/mL (10.0-30.0) L 10/01/20 11:39 Ur Barbiturates Screen Negative 10/01/20 13:15 Ur Phencyclidine Scrn Negative 10/01/20 13:15 Ur Amphetamines Screen Negative 10/01/20 13:15 U Benzodiazepines Scrn Negative 10/01/20 13:15 Urine Cocaine Screen Negative 10/01/20 13:15 U Marijuana (THC) Screen Negative 10/01/20 13:15 Drugs of Abuse Note Disclamer 10/01/20 13:15 Coronavirus (PCR) Positive (Negative) A 10/02/20 Unknown Barrientos/IV: Voiding Method Incontinent IV Catheter Type [right chest] PICC Line IV Catheter Type [Right INT / Saline Lock Forearm] IV Catheter Type [Left Upper dialysis access arm] Active Medications - Current Medications Current Medications: Generic Name Dose Route Start Last Admin Trade Name Freq PRN Reason Stop Dose Admin Acetaminophen 650 mg 10/01/20 15:50 Acetaminophen 325 Mg Tab PO Q4H PRN Pain MILD(1-3)/Fever >100.5/VERDE Albuterol 2.5 mg 10/01/20 15:50 Albuterol 2.5 Mg/3 Ml Nebu IH Q4HRT PRN Shortness Of Breath Apixaban 2.5 mg 10/06/20 22:00 10/11/20 00:33 Apixaban 2.5 Mg Tab PO 2.5 mg Q12HR BUTCH Administration Protocol Aspirin 81 mg 10/01/20 17:00 10/10/20 11:46 Aspirin 81 Mg Tab Chew PO 81 mg QDAY BUTCH Administration Atorvastatin Calcium 20 mg 10/06/20 22:00 10/11/20 00:33 Atorvastatin 20 Mg Tab PO 20 mg QHS BUTCH Administration Dextrose 50 ml 10/01/20 15:54 10/11/20 00:34 Dextrose 50% In Water (25gm) 50 Ml Syringe IV 50 ml Q30MIN PRN Administration Hypoglycemia Protocol Epoetin Jagjit 10,000 unit 10/02/20 09:19 10/02/20 20:20 Epoetin Jagjit 10,000 Unit/1 Ml Inj IV 10,000 unit ALANA PRN Administration hemodialysis Famotidine 20 mg 10/02/20 10:00 10/10/20 11:48 Famotidine 20 Mg Tab PO 20 mg DAILY BUTCH Administration Sodium Chloride 100 mls @ 999 mls/hr 10/02/20 09:19 Nacl 0.9% IV ALANA PRN Hypotension Levetiracetam 500 mg/ Dextrose 105 mls @ 400 mls/hr 10/09/20 10:00 10/11/20 02:56 IV Infused Q12HR BUTCH Infusion Sodium Chloride 1,000 mls @ 75 mls/hr 10/09/20 11:45 10/10/20 19:24 Nacl 0.9% 1000 Ml IV 75 mls/hr DIRECT BUTCH Administration Insulin Glargine 10 units 10/08/20 10:00 10/10/20 11:48 Insulin Glargine 100 Units/Ml SUB-Q Not Given QAM [facility] Insulin Human Lispro 0 unit 10/01/20 16:30 10/11/20 06:43 Insulin Lispro 100 Unit/Ml Vial 3 Ml SUB-Q Not Given ACHS [facility] Protocol Megestrol Acetate 400 mg 10/02/20 10:00 10/10/20 11:48 Megestrol 400 Mg/10 Ml Oral Liqd PO 400 mg QDAY BUTCH Administration Metoprolol Tartrate 25 mg 10/11/20 22:00 Metoprolol Tartrate 25 Mg Tab PO BID BUTCH Midodrine 5 mg 10/08/20 12:00 10/10/20 16:45 Midodrine 5 Mg Tab PO Not Given TID@0800,1200,1600 [facility] Ondansetron HCl 4 mg 10/01/20 15:50 Ondansetron 4 Mg/2 Ml Inj IV Q8H PRN Nausea And Vomiting Sodium Chloride 10 ml 10/01/20 22:00 10/11/20 00:34 Sodium Chloride 0.9% 10 Ml Flush Syringe IV 10 ml BID BUTCH Administration Sodium Chloride 10 ml 10/01/20 15:50 10/02/20 09:48 Sodium Chloride 0.9% 10 Ml Flush Syringe IV 10 ml PRN PRN Administration LINE FLUSH Valproic Acid 500 mg 10/04/20 23:45 10/11/20 05:37 Valproic Acid 250 Mg/5 Ml Oral Liqd PO 500 mg Q8HR BUTCH Administration Nutrition/Malnutrition Assess - Dietary Evaluation Nutrition/Malnutrition Findings: Nutrition Notes Start: 10/02/20 14:56 Freq: Status: Active Protocol: Document 10/10/20 11:39 CW (Rec: 10/10/20 12:01 CW [id number]) Co-Sign 10/10/20 11:39 LP Nutrition Notes Initial or Follow up Reassessment Current Diagnosis CKD (stage V CKD),Coronary Artery Disease,Decubitus( Pressure Ulcer),Diabetes, Hyperlipidemia Other Pertinent Diagnosis COVID-19 (+), Encephalopathy, UTI, GERD, pneu, seizure d/o Current Diet Mechanical soft Labs/Tests Na 134 BUN 52 Cr 4.9 BG 161 Pertinent Medications NaCl at 75ml/hr Height 5 ft 5 in Weight 54 kg [place] Body Weight (kg) 56.81 BMI 19.8 Weight Status Underweight Subjective/Other Information FU for stable intakes. Per chart pt wt increased 12.1kg in one day and RN can not confirm accuracy, RD calculations based off wt on of 54kg. Per chart and RN pt ate 0% PO on 10/09 and requires total assistance. Discussed ONS order for chilled Nepro with RN. Percent of energy/protein needs met: 0%/0% Burn Absent Trauma Absent GI Symptoms None Difficulty In Swallowing,Chewing Food Allergy No Current % PO Negligible Minimum of two criteria No Reduced [employer] Strength Measurably Reduced (severe) #3 Nutrition Diagnosis Increased nutrient needs ( specify in comment below) Comments: protein Etiology wound healing As Evidenced by Signs and Symptoms Pt has stage II sacrum pressure ulcer #2 Nutrition Diagnosis Inadequate oral intake Etiology advanced age, chewing/ swallowing difficulties As Evidenced by Signs and Symptoms pt consuming 0% PO #1 As Evidenced by Signs and Symptoms Nutrition diagonosis has been made. Diagnosis Progress(for reassessment Resolved documentation) Is patient on ventilator? No Is Patient Ambulatory and/or Out of Bed No REE-([facility]-confined to bed) 1214.184 Kcal/Kg value to use for calculation 31 Approximate Energy Requirements Using 1674 kcal/Kg Calculation Used for Recommendations Kcal/kg Additional Notes Protein: >62 g (>1.2 g/kg) Fluid: 1,000-1,500ml or per MD order Nutrition Intervention Change Diet Order: Continue Add Supplement/Snack (indicate name/kcal Nepro daily /protein ) Provides kCal: 425 Provides Protein (gm) 19 Goal #1 Meet at least 80% of protein and energy needs via PO/ONS Goal #2 Wt gain/ maintenance Goal #3 Wound healing Anticipated Discharge Needs: Unable to determine at this time Follow-Up By: 10/12/20 Additional Comments FU for new wt, PO/ONS intakes
--- NOTE | 2020-10-11 12:34 | Progress Note ---
Assessment and Plan # End stage renal disease: unstable for HD yesterday given tachycardia, hypotension. More stable today, will plan for HD today as tolerated. Plan to continue maintenance hemodialysis // or prn moving forward - daily renal labs - avoid nephrotoxins - renally dose meds - renal diet # Hypertension: BP more stable, was soft yesterday, is off losartan. UF only as tolerated # Atrial fibrillation with rapid ventricular response: appreciate cardiology # Anemia: current hemoglobin is around 10 # Thrombocytopenia: HIT panel pending # Bone mineral disorder and secondary hyperparathyroidism: continue binders with meals # Diabetes mellitus type 2 # Covid 19 pneumonia, altered mental status Subjective Date of service: 10/11/20 Principal diagnosis: COVID-19 PNA, AF with RVR Interval history: Remains thrombocytopenic. No other major changes. HR better Objective - Exam Narrative Exam: Direct examination not done due to COVID-19, need to limit PPE. Reviewed exam ination of primary team - Vital Signs Vital signs: Vital Signs - 12hr 10/11/20 10/11/20 10/11/20 01:00 01:01 02:01 Pulse Rate 72 77 71 Respiratory 27 H 28 H Rate Blood Pressure 166/52 156/54 O2 Sat by Pulse 91 97 Oximetry 10/11/20 10/11/20 10/11/20 03:00 04:00 05:00 Pulse Rate 70 69 75 Respiratory 25 H 25 H Rate Blood Pressure 143/47 151/49 O2 Sat by Pulse 95 97 Oximetry 10/11/20 10/11/20 10/11/20 05:01 06:01 07:00 Pulse Rate 74 79 78 Respiratory 27 H 31 H 27 H Rate Blood Pressure 154/56 158/56 167/62 O2 Sat by Pulse 95 92 93 Oximetry 10/11/20 10/11/20 10/11/20 08:01 09:01 09:49 Pulse Rate 81 71 Respiratory 28 H 27 H Rate Blood Pressure 159/52 146/52 O2 Sat by Pulse 93 93 98 Oximetry 10/11/20 10/11/20 10:00 11:00 Pulse Rate 75 72 Respiratory 29 H 28 H Rate Blood Pressure 147/64 156/56 O2 Sat by Pulse 91 93 Oximetry - Lab 10/11/20 04:27 10/10/20 05:50 Most recent lab results Calcium 7.1 mg/dL (8.4-10.2) L 10/10/20 05:50 Medications & Allergies - Medications Allergies/Adverse Reactions: Allergies No Known Allergies Allergy (Unverified 02/02/18 15:43) Home Medications: Home Medications Medication Instructions Recorded Confirmed Last Taken Type Aspirin 81 mg PO DAILY 08/13/18 10/06/20 08/11/18 History Acetaminophen [Acetaminophen TAB] 650 mg PO Q4H PRN tablet 09/02/18 10/06/20 Unknown Rx Lispro Insulin [HumaLOG] 0 unit SUB-Q ACHS units 09/02/18 10/06/20 Unknown Rx ISOSORBIDE MONOnitrate [Imdur ER] 60 mg PO DAILY tablet 10/15/18 10/06/20 Unk nown Rx carvediloL [Coreg] 12.5 mg PO BID tablet 10/15/18 10/06/20 Unknown Rx Losartan [Cozaar] 50 mg PO QDAY #30 tablet 11/01/18 10/06/20 Unknown Rx Lacosamide [Vimpat] 50 mg PO Q12HR #60 tablet 08/22/19 10/06/20 Unknown Rx Linagliptin [Tradjenta] 5 mg PO QDDIAB #30 tablet 08/22/19 10/06/20 Unknown Rx levETIRAcetam [Keppra TAB] 500 mg PO BID #60 tablet 08/22/19 10/06/20 Unknown Rx Famotidine [Pepcid] 20 mg PO DAILY #30 tablet 08/07/20 10/06/20 Unknown Rx NIFEdipine XL [Procardia Xl] 60 mg PO Q12HR #60 tablet 08/07/20 10/06/20 Unknown Rx hydrALAZINE [Apresoline TAB] 100 mg PO Q8HR #90 tab 08/07/20 10/06/20 Unknown Rx megestroL [Megestrol] 400 mg PO QDAY 30 Days #1 oral.liqd 08/07/20 10/06/20 Unknown Rx Active Medications: Generic Name Dose Route Start Last Admin Trade Name Freq PRN Reason Stop Dose Admin Acetaminophen 650 mg 10/01/20 15:50 Acetaminophen 325 Mg Tab PO Q4H PRN Pain MILD(1-3)/Fever >100.5/VERDE Albuterol 2.5 mg 10/01/20 15:50 Albuterol 2.5 Mg/3 Ml Nebu IH Q4HRT PRN Shortness Of Breath Apixaban 2.5 mg 10/06/20 22:00 10/11/20 10:00 Apixaban 2.5 Mg Tab PO Not Given Q12HR [facility] Protocol Aspirin 81 mg 10/01/20 17:00 10/11/20 10:00 Aspirin 81 Mg Tab Chew PO Not Given QDAY [facility] Atorvastatin Calcium 20 mg 10/06/20 22:00 10/11/20 00:33 Atorvastatin 20 Mg Tab PO 20 mg QHS BUTCH Administration Dextrose 50 ml 10/01/20 15:54 10/11/20 00:34 Dextrose 50% In Water (25gm) 50 Ml Syringe IV 50 ml Q30MIN PRN Administration Hypoglycemia Protocol Epoetin Jagjit 10,000 unit 10/02/20 09:19 10/02/20 20:20 Epoetin Jagjit 10,000 Unit/1 Ml Inj IV 10,000 unit ALANA PRN Administration hemodialysis Famotidine 20 mg 10/02/20 10:00 10/11/20 10:00 Famotidine 20 Mg Tab PO Not Given DAILY [facility] Sodium Chloride 100 mls @ 999 mls/hr 10/02/20 09:19 Nacl 0.9% IV ALANA PRN Hypotension Levetiracetam 500 mg/ Dextrose 105 mls @ 400 mls/hr 10/09/20 10:00 10/11/20 12:04 IV 400 mls/hr Q12HR BUTCH Administration Sodium Chloride 1,000 mls @ 75 mls/hr 10/09/20 11:45 10/10/20 19:24 Nacl 0.9% 1000 Ml IV 75 mls/hr DIRECT BUTCH Administration Insulin Glargine 10 units 10/08/20 10:00 10/11/20 10:00 Insulin Glargine 100 Units/Ml SUB-Q Not Given QAM [facility] Insulin Human Lispro 0 unit 10/01/20 16:30 10/11/20 11:30 Insulin Lispro 100 Unit/Ml Vial 3 Ml SUB-Q Not Given ACHS [facility] Protocol Megestrol Acetate 400 mg 10/02/20 10:00 10/11/20 10:00 Megestrol 400 Mg/10 Ml Oral Liqd PO Not Given QDAY [facility] Metoprolol Tartrate 25 mg 10/11/20 22:00 Metoprolol Tartrate 25 Mg Tab PO BID [facility] Midodrine 5 mg 10/08/20 12:00 10/11/20 12:19 Midodrine 5 Mg Tab PO Not Given TID@0800,1200,1600 [facility] Ondansetron HCl 4 mg 10/01/20 15:50 Ondansetron 4 Mg/2 Ml Inj IV Q8H PRN Nausea And Vomiting Sodium Chloride 10 ml 10/01/20 22:00 10/11/20 12:04 Sodium Chloride 0.9% 10 Ml Flush Syringe IV 10 ml BID BUTCH Administration Sodium Chloride 10 ml 10/01/20 15:50 10/02/20 09:48 Sodium Chloride 0.9% 10 Ml Flush Syringe IV 10 ml PRN PRN Administration LINE FLUSH Valproic Acid 500 mg 10/04/20 23:45 10/11/20 05:37 Valproic Acid 250 Mg/5 Ml Oral Liqd PO 500 mg Q8HR BUTCH Administration
[2020-10-11] MEDS: EPOETIN ALFA 10,000 UNIT/1 ML INJ IV PRN (15:45)
[2020-10-11] MEDS: METOPROLOL TARTRATE 25 MG TAB PO SCH (23:19)
[2020-10-11] MEDS: ACETAMINOPHEN 325 MG TAB PO PRN (23:51)
[2020-10-12] MEDS: INSULIN LISPRO 100 UNIT/ML VIAL 3 mL SUB-Q SCH ×5 (00:28→17:42)
[2020-10-12 01:23] LABS: Calcium 7.7 mg/dL (8.4-10.2)
[2020-10-12] MEDS: VALPROIC ACID 250 MG/5 ML ORAL LIQD PO SCH ×4 (05:10→22:53)
[2020-10-12 06:26] LABS: Hematocrit 28.5 % (30.3-42.9); Hemoglobin 9.2 gm/dl (10.1-14.3); Mean Corpuscular HGB Conc 32 % (30-34); Mean Corpuscular Volume 97 fl (79-97); Red Blood Count 2.93 M/mm3 (3.65-5.03); Red Cell Distribution Width 18.4 % (13.2-15.2)
[2020-10-12 06:29] LABS: Platelet Count 42 K/mm3 (140-440)
[2020-10-12 06:48] LABS: Calcium 7.8 mg/dL (8.4-10.2)
[2020-10-12 07:30] LABS: Total Cells Counted 100
[2020-10-12 07:32] LABS: Anisocytosis 1+; Ovalocytes Few; Platelet Estimate Consistent w Auto; Schistocytes Few; Target Cells Few
[2020-10-12] MEDS: levETIRAcetam 500 MG in DEXTROSE 5% IN WATER 100 ML IV SCH ×2 (09:33→22:46)
[2020-10-12] MEDS: ASPIRIN 81 MG TAB CHEW PO SCH (09:34)
[2020-10-12] MEDS: MIDODRINE 5 MG TAB PO SCH ×4 (09:34→17:42)
[2020-10-12] MEDS: MEGESTROL 400 MG/10 ML ORAL LIQD PO SCH (09:34)
[2020-10-12] MEDS: METOPROLOL TARTRATE 25 MG TAB PO SCH ×2 (09:34→22:55)
[2020-10-12] MEDS: FAMOTIDINE 20 MG TAB PO SCH (09:34)
[2020-10-12] MEDS: APIXABAN 2.5 MG TAB PO SCH ×2 (09:34→22:54)
[2020-10-12] MEDS: INSULIN GLARGINE 100 UNITS/ML SUB-Q SCH (09:56)
--- NOTE | 2020-10-12 11:00 | Progress Note ---
Assessment and Plan Currently stable cardiac status. Cont present cardiac management. Anemia and worsening thrombocytopenia noted, pt is currently receiving low dose Eliquis and did receive several days of IV heparin prior to initiation of Eliquis - consider r/o HIT per primary team. Cont Eliquis unless contraindicated. Will consider repeat echo when clinically stable/upon resolution of COVID-19 infection. Will follow on as needed basis over the weekend. Case reviewed in conjunction with Dr. Mckeon, who agrees with the assessment and plan of care. - Patient Problems (1) Pneumonia due to COVID-19 virus Current Visit: Yes Status: Acute (2) Atrial fibrillation with RVR Current Visit: Yes Status: Acute Plan to address problem: apparent new onset - initiated on Eliquis (3) NSVT (nonsustained ventricular tachycardia) Current Visit: Yes Status: Acute (4) Mild aortic stenosis Current Visit: Yes Status: Chronic (5) Severe pulmonary hypertension Current Visit: Yes Status: Chronic (6) End-stage renal disease on hemodialysis Current Visit: Yes Status: Chronic (7) Anemia Current Visit: Yes Status: Chronic Qualifiers: Anemia type: unspecified type Qualified Code(s): D64.9 - Anemia, unspecified (8) Seizure Current Visit: Yes Status: Chronic (9) Elevated TSH Current Visit: Yes Status: Acute Plan to address problem: Mgmt per Primary (10) Hypertension Current Visit: Yes Status: Chronic Qualifiers: Hypertension type: essential hypertension Qualified Code(s): I10 - Essential (primary) hypertension (11) Hyperlipidemia Current Visit: Yes Status: Chronic Qualifiers: Hyperlipidemia type: mixed hyperlipidemia Qualified Code(s): E78.2 - Mixed hyperlipidemia (12) T2DM (type 2 diabetes mellitus) Current Visit: Yes Status: Chronic (13) Vascular dementia Current Visit: Yes Status: Chronic Qualifiers: Dementia behavioral disturbance: without behavioral disturbance Qualified Code(s): F01.50 - Vascular dementia without behavioral disturbance Subjective Date of service: 10/12/20 Principal diagnosis: COVID-19 PNA, AF with RVR Interval history: pt resting in bed, lethargic, NAD. tele reviewed - in SR HR 60s. Objective Last Vital Signs Temp 97.4 F L 10/12/20 08:00 Pulse 71 10/12/20 09:34 Resp 22 10/12/20 08:00 BP 123/76 10/12/20 09:34 Pulse Ox 93 10/12/20 08:33 - Physical Examination Narrative exam: agree with physical examination per primary team - Labs and Meds CBC 10/12/20 Range/Units 06:05 WBC 6.3 (4.5-11.0) K/mm3 RBC 2.93 L (3.65-5.03) M/mm3 Hgb 9.2 L (10.1-14.3) gm/dl Hct 28.5 L (30.3-42.9) % Plt Count 42 L (140-440) K/mm3 Comprehensive Metabolic Panel 10/12/20 10/12/20 Range/Units 00:51 06:05 Sodium 136 L 139 (137-145) mmol/L Potassium 3.6 3.5 L (3.6-5.0) mmol/L Chloride 97.8 L 99.1 (98-107) mmol/L Carbon Dioxide 25 31 H (22-30) mmol/L BUN 29 H 31 H (7-17) mg/dL Creatinine 3.4 H 3.6 H (0.6-1.2) mg/dL Glucose 140 H 160 H (65-100) mg/dL Calcium 7.7 L 7.8 L (8.4-10.2) mg/dL - Imaging and Cardiology EKG: report reviewed, image reviewed Echo: report reviewed (07/2019 LA mod dilated, mild-mod MR, mild-mod TR, mild , mild concentric LVH, EF 65-70%, severe pulm HTN, RVSP 83 mmHg) - Telemetry EKG Rhythm: Sinus Rhythm - EKG Sinus rhythms and dysrhythmias: sinus rhythm
--- NOTE | 2020-10-12 13:54 | Progress Note ---
Assessment and Plan Assessment and plan: 80 YO Female with HTN, DM, Seizure Disorder, HLD, Diastolic CHF, ESRD on HD(M,W,F), Vascular Dementia, Cerebral Atherosclerosis presents to emergency room after she was noted to have seizure-like activity after being discharged from [facility]. Patient was discharged on Depakote and Keppra. In the ER here, she was found to have metabolic encephalopathy, UTI, accelerated hypertension and pneumonia on chest x-ray. She was initiated on Pneumonia protocol and then admitted to the hospital. --Multifocal pneumonia Secondary to Covid Completed treatment --COVID-19 virus infection Taper off steroids Continue isolation -- Seizure Continue keppra 500 mg twice daily Depakote 750mg BID MRI of the brain without contrast performed-acute changes not found Awaiting EEG Neurology recs appreciated ---Atrial fibrillation with RVR On metoprolol and amiodarone On eliquis Cardiology following -- Urinary tract infection Antibiotics completed --Accelerated hypertension Continue current blood pressure medications-losartan and Coreg -- End-stage renal disease on hemodialysis Hemodialysis as scheduled --Diabetes mellitus Lantus and lispro --Vascular dementia Stable ---DVT prophylaxis SCD to bilateral lower extremities while in bed Heparin drip Hospital course Neurology was consulted for seizure episode. MRI brain and EEG advised. COVID- 19 test positive. Patient started on dexamethasone. ID consulted. Patient also on antibiotics for UTI. 10/05. Patients mental status has improved. MRI brain performed showed no acute abnormalities [this was done without contrast as patient has ESRD]. Overnight, patient had A. fib with RVR with rates in the 100-120s. Cardiology has been consulted. Beta-jason dose has been adjusted. Patient started on heparin drip 10/06. Heart rate up to 120's. Patient may need to be started on Cardizem drip however blood pressure is soft. Cardiology will consider amiodarone if not improving. Awaiting cardiology evaluation. She denies any chest pain or palpitations this morning. Afebrile overnight. 10/07. Coreg switched to metoprolol by cardiology. Heparin switched to eliquis. Started on amiodarone drip but as patient could not be transferred to CCU/IMCU due to unavailable beds, she was switched to PO amiodarone by cardiology. 10/08. HR still elevated. BP soft today (normal saline bolus ordered. Started on midodrine for now. Had hypoglycemia overnight. Lantus reduced by 50%. Labs ord ered. 10/09. Patient heart rate remains elevated. Consider transferring to [facility] and starting amiodarone drip. We will discuss with cardiology. Patient not taking p.o. therefore we will start Keppra IV. 10/10. Amiodarone drip held per nursing secondary to bradycardia. Continue anticoagulation with heparin drip. Hemodialysis on hold per nephrology given hemodynamic instability. Resume hemodialysis in a.m. if stable. 10/11. Repeat echocardiogram when patient clinically stable. Patient currently rate controlled on metoprolol 25 mg twice daily. Continue low-dose Eliquis. Check HIT panel. Continue Lantus and sliding scale insulin. Continue AEDs and seizure precautions. Continue midodrine 10/12. HIT panel order given thrombocytopenia. Continue Eliquis for now. Repeat echocardiogram per cardiology. History Interval history: 80 YO Female with HTN, DM, Seizure Disorder, HLD, Diastolic CHF, ESRD on HD(M,W,F), Vascular Dementia, Cerebral Atherosclerosis presents to emergency room after she was noted to have seizure-like activity after being discharged from [facility]. Patient was discharged on Depakote and Keppra. In the ER here, she was found to have metabolic encephalopathy, UTI, accelerated hypertension and pneumonia on chest x-ray. She was initiated on Pneumonia protocol and then admitted to the hospital. No new issues overnight. Patient unable to take p.o. Hospitalist Physical - Constitutional Vitals: Temp Pulse Resp BP Pulse Ox 97.4 F L 71 22 123/76 93 10/12/20 08:00 10/12/20 09:34 10/12/20 08:00 10/12/20 09:34 10/12/20 08:33 General appearance: Present: other (Altered mental status) - EENT Eyes: Present: PERRL, EOM intact ENT: hearing intact, clear oral mucosa, dentition normal - Neck Neck: Present: supple, normal ROM - Respiratory Respiratory effort: normal Respiratory: bilateral: CTA - Cardiovascular Rhythm: regular Heart Sounds: Present: S1 & S2. Absent: gallop, rub - Extremities Extremities: no ischemia, No edema, Full ROM - Abdominal General gastrointestinal: soft, non-tender, non-distended, normal bowel sounds - Integumentary Integumentary: Present: clear, warm, dry - Neurologic Neurologic: CNII-XII intact, moves all extremities Results - Labs CBC & Chem 7: 10/12/20 06:05 10/12/20 06:05 Labs: Laboratory Last Values WBC 6.3 K/mm3 (4.5-11.0) 10/12/20 06:05 RBC 2.93 M/mm3 (3.65-5.03) L 10/12/20 06:05 Hgb 9.2 gm/dl (10.1-14.3) L 10/12/20 06:05 Hct 28.5 % (30.3-42.9) L 10/12/20 06:05 MCV 97 fl (79-97) 10/12/20 06:05 MCH 32 pg (28-32) 10/12/20 06:05 MCHC 32 % (30-34) 10/12/20 06:05 RDW 18.4 % (13.2-15.2) H 10/12/20 06:05 Plt Count 42 K/mm3 (140-440) L 10/12/20 06:05 Lymph % (Auto) 8.3 % (13.4-35.0) L 10/09/20 03:00 [place] % (Auto) 4.8 % (0.0-7.3) 10/09/20 03:00 Eos % (Auto) 0.8 % (0.0-4.3) 10/09/20 03:00 Baso % (Auto) 0.7 % (0.0-1.8) 10/09/20 03:00 Lymph # (Auto) 0.2 K/mm3 (1.2-5.4) L 10/09/20 03:00 [place]uming # (Auto) 0.1 K/mm3 (0.0-0.8) 10/09/20 03:00 Eos # (Auto) 0.0 K/mm3 (0.0-0.4) 10/09/20 03:00 Baso # (Auto) 0.0 K/mm3 (0.0-0.1) 10/09/20 03:00 Add Manual Diff Complete 10/12/20 06:05 Total Counted 100 10/12/20 06:05 Seg Neutrophils % Devops Consultant 10/12/20 06:05 Seg Neuts % (Manual) 91.0 % (40.0-70.0) H 10/12/20 06:05 Lymphocytes % (Manual) 4.0 % (13.4-35.0) L 10/12/20 06:05 Monocytes % (Manual) 5.0 % (0.0-7.3) 10/12/20 06:05 Nucleated RBC % Not Reportable 10/12/20 06:05 Seg Neutrophils # 2.5 K/mm3 (1.8-7.7) 10/09/20 03:00 Seg Neutrophils # Man 5.7 K/mm3 (1.8-7.7) 10/12/20 06:05 Band Neutrophils # 0.0 K/mm3 10/12/20 06:05 Lymphocytes # (Manual) 0.3 K/mm3 (1.2-5.4) L 10/12/20 06:05 Abs React Lymphs (Man) 0.0 K/mm3 10/12/20 06:05 Monocytes # (Manual) 0.3 K/mm3 (0.0-0.8) 10/12/20 06:05 Eosinophils # (Manual) 0.0 K/mm3 (0.0-0.4) 10/12/20 06:05 Basophils # (Manual) 0.0 K/mm3 (0.0-0.1) 10/12/20 06:05 Metamyelocytes # 0.0 K/mm3 10/12/20 06:05 Myelocytes # 0.0 K/mm3 10/12/20 06:05 Promyelocytes # 0.0 K/mm3 10/12/20 06:05 Blast Cells # 0.0 K/mm3 10/12/20 06:05 WBC Morphology Not Reportable 10/12/20 06:05 Hypersegmented Neuts Not Reportable 10/12/20 06:05 Hyposegmented Neuts Not Reportable 10/12/20 06:05 Hypogranular Neuts Not Reportable 10/12/20 06:05 Smudge Cells Not Reportable 10/12/20 06:05 Toxic Granulation Not Reportable 10/12/20 06:05 Toxic Vacuolation Not Reportable 10/12/20 06:05 Dohle Bodies Not Reportable 10/12/20 06:05 Pelger-Huet Anomaly Not Reportable 10/12/20 06:05 Richard Rods Not Reportable 10/12/20 06:05 Platelet Estimate Consistent w auto 10/12/20 06:05 Clumped Platelets Not Reportable 10/12/20 06:05 Plt Clumps, EDTA Not Reportable 10/12/20 06:05 Large Platelets Not Reportable 10/12/20 06:05 Giant Platelets Not Reportable 10/12/20 06:05 Platelet Satelliting Not Reportable 10/12/20 06:05 Plt Morphology Comment Not Reportable 10/12/20 06:05 RBC Morphology Not Reportable 10/12/20 06:05 Dimorphic RBCs Not Reportable 10/12/20 06:05 Polychromasia Not Reportable 10/12/20 06:05 Hypochromasia Not Reportable 10/12/20 06:05 Poikilocytosis Not Reportable 10/12/20 06:05 Anisocytosis 1+ 10/12/20 06:05 Microcytosis Not Reportable 10/12/20 06:05 Macrocytosis Not Reportable 10/12/20 06:05 Spherocytes Not Reportable 10/12/20 06:05 Pappenheimer Bodies Not Reportable 10/12/20 06:05 Sickle Cells Not Reportable 10/12/20 06:05 Target Cells Few 10/12/20 06:05 Tear Drop Cells Not Reportable 10/12/20 06:05 Ovalocytes Few 10/12/20 06:05 Helmet Cells Not Reportable 10/12/20 06:05 [place] Bodies Not Reportable 10/12/20 06:05 Simpson Rings Not Reportable 10/12/20 06:05 [place] Cells Not Reportable 10/12/20 06:05 Bite Cells Not Reportable 10/12/20 06:05 Crenated Cell Not Reportable 10/12/20 06:05 Elliptocytes Not Reportable 10/12/20 06:05 Acanthocytes (Spur) Not Reportable 10/12/20 06:05 Rouleaux Not Reportable 10/12/20 06:05 Hemoglobin C Crystals Not Reportable 10/12/20 06:05 Schistocytes Few 10/12/20 06:05 Malaria parasites Not Reportable 10/12/20 06:05 Cristofer Bodies Not Reportable 10/12/20 06:05 Hem Pathologist Commnt No 10/12/20 06:05 PT 13.4 Sec. (12.2-14.9) 10/05/20 20:39 INR 1.04 (0.87-1.13) 10/05/20 20:39 APTT 37.6 Sec. (24.2-36.6) H 10/05/20 20:39 D-Dimer 1609.74 ng/mlDDU (0-234) H 10/01/20 16:16 Heparin Anti-Xa Level 0.18 U.I./ml (0.3-0.7) L 10/06/20 05:56 Sodium 139 mmol/L (137-145) 10/12/20 06:05 Potassium 3.5 mmol/L (3.6-5.0) L 10/12/20 06:05 Chloride 99.1 mmol/L (98-107) 10/12/20 06:05 Carbon Dioxide 31 mmol/L (22-30) H 10/12/20 06:05 Anion Gap 12 mmol/L 10/12/20 06:05 BUN 31 mg/dL (7-17) H 10/12/20 06:05 Creatinine 3.6 mg/dL (0.6-1.2) H 10/12/20 06:05 Estimated GFR 15 ml/min 10/12/20 06:05 BUN/Creatinine Ratio 9 % 10/12/20 06:05 Glucose 160 mg/dL (65-100) H 10/12/20 06:05 POC Glucose 176 mg/dL (70-105) H 10/12/20 11:32 Lactic Acid 1.10 mmol/L (0.7-2.0) 10/01/20 16:16 Calcium 7.8 mg/dL (8.4-10.2) L 10/12/20 06:05 Ferritin 1926.0 ng/mL (10.0-200.0) H 10/03/20 09:30 Total Bilirubin 0.30 mg/dL (0.1-1.2) 10/09/20 03:00 AST 31 units/L (5-40) 10/09/20 03:00 ALT 9 units/L (7-56) 10/09/20 03:00 Alkaline Phosphatase 38 units/L (35-129) 10/09/20 03:00 Ammonia 20.0 umol/L (25-60) L 10/01/20 11:39 Lactate Dehydrogenase 241 units/L (91-180) H 10/03/20 09:30 Total Creatine Kinase 54 units/L (30-135) 10/01/20 11:39 C-Reactive Protein 2.70 mg/dL (0.00-1.30) H 10/03/20 09:30 Serum Total Protein 5.6 g/dL (6.1-8.1) L 10/06/20 05:56 Total Protein 4.7 g/dL (6.3-8.2) L 10/09/20 03:00 Albumin 2.3 g/dL (3.9-5) L 10/09/20 03:00 Albumin/Globulin Ratio 1.0 % 10/09/20 03:00 Megsc-4-Tgugitbnk 0.3 g/dL (0.2-0.3) 10/06/20 05:56 Tmdal-4-Gtbrmkrcs 0.7 g/dL (0.5-0.9) 10/06/20 05:56 Beta Globulins 0.4 g/dL (0.2-0.5) 10/06/20 05:56 Gamma Globulins 1.5 g/dL (0.8-1.7) 10/06/20 05:56 Abnorm Protein Band 1 see below 10/06/20 05:56 PEP Interpretation see below H 10/06/20 05:56 Procalcitonin 0.52 ng/mL (<0.15) 10/03/20 09:30 TSH 6.100 mlU/mL (0.270-4.200) H 10/01/20 11:39 Free T4 1.40 ng/dL (0.76-1.46) 10/03/20 09:30 Urine Color [place] (Yellow) 10/01/20 13:15 Urine Turbidity Cloudy (Clear) 10/01/20 13:15 Urine pH 7.0 (5.0-7.0) 10/01/20 13:15 Ur Specific [place] 1.012 (1.003-1.030) 10/01/20 13:15 Urine Protein >500 mg/dL (Negative) 10/01/20 13:15 Urine Glucose (UA) Neg mg/dL (Negative) 10/01/20 13:15 Urine Ketones Neg mg/dL (Negative) 10/01/20 13:15 Urine Blood Sm (Negative) 10/01/20 13:15 Urine Nitrite Neg (Negative) 10/01/20 13:15 Urine Bilirubin Neg (Negative) 10/01/20 13:15 Urine Urobilinogen < 2.0 mg/dL (<2.0) 10/01/20 13:15 Ur Leukocyte Esterase Lg (Negative) 10/01/20 13:15 Urine WBC (Auto) > 182.0 /HPF (0.0-6.0) H 10/01/20 13:15 Urine RBC (Auto) 18.0 /HPF (0.0-6.0) 10/01/20 13:15 U Epithel Cells (Auto) 4.0 /HPF (0-13.0) 10/01/20 13:15 Urine Bacteria (Auto) 1+ /HPF (Negative) 10/01/20 13:15 Urine WBC Clumps 2+ /HPF 10/01/20 13:15 Urine Mucus Few /HPF 10/01/20 13:15 Random Vancomycin 7.6 ug/mL (0-40.0) 10/03/20 09:30 Salicylates < 0.3 mg/dL (2.8-20.0) L 10/01/20 11:39 Urine Opiates Screen Negative 10/01/20 13:15 Urine Methadone Screen Negative 10/01/20 13:15 Acetaminophen 5.0 ug/mL (10.0-30.0) L 10/01/20 11:39 Ur Barbiturates Screen Negative 10/01/20 13:15 Ur Phencyclidine Scrn Negative 10/01/20 13:15 Ur Amphetamines Screen Negative 10/01/20 13:15 U Benzodiazepines Scrn Negative 10/01/20 13:15 Urine Cocaine Screen Negative 10/01/20 13:15 U Marijuana (THC) Screen Negative 10/01/20 13:15 Drugs of Abuse Note Disclamer 10/01/20 13:15 Coronavirus (PCR) Positive (Negative) A 10/02/20 Unknown Barrientos/IV: Voiding Method Incontinent IV Catheter Type [right chest] PICC Line IV Catheter Type [Right INT / Saline Lock Forearm] IV Catheter Type [Left Upper dialysis access arm] Active Medications - Current Medications Current Medications: Generic Name Dose Route Start Last Admin Trade Name Freq PRN Reason Stop Dose Admin Acetaminophen 650 mg 10/01/20 15:50 10/11/20 23:51 Acetaminophen 325 Mg Tab PO 650 mg Q4H PRN Administration Pain MILD(1-3)/Fever >100.5/VERDE Albuterol 2.5 mg 10/01/20 15:50 Albuterol 2.5 Mg/3 Ml Nebu IH Q4HRT PRN Shortness Of Breath Apixaban 2.5 mg 10/06/20 22:00 10/12/20 09:34 Apixaban 2.5 Mg Tab PO 2.5 mg Q12HR BUTCH Administration Protocol Aspirin 81 mg 10/01/20 17:00 10/12/20 09:34 Aspirin 81 Mg Tab Chew PO 81 mg QDAY BUTCH Administration Atorvastatin Calcium 20 mg 10/06/20 22:00 10/11/20 23:19 Atorvastatin 20 Mg Tab PO 20 mg QHS BUTCH Administration Dextrose 50 ml 10/01/20 15:54 10/11/20 12:25 Dextrose 50% In Water (25gm) 50 Ml Syringe IV 15 ml Q30MIN PRN Administration Hypoglycemia Protocol Epoetin Jagjit 10,000 unit 10/02/20 09:19 10/11/20 15:45 Epoetin Jagjit 10,000 Unit/1 Ml Inj IV 10,000 unit ALANA PRN Administration hemodialysis Famotidine 20 mg 10/02/20 10:00 10/12/20 09:34 Famotidine 20 Mg Tab PO 20 mg DAILY BUTCH Administration Sodium Chloride 100 mls @ 999 mls/hr 10/02/20 09:19 Nacl 0.9% IV ALANA PRN Hypotension Levetiracetam 500 mg/ Dextrose 105 mls @ 400 mls/hr 10/09/20 10:00 10/12/20 09:33 IV 400 mls/hr Q12HR BUTCH Administration Sodium Chloride 1,000 mls @ 75 mls/hr 10/09/20 11:45 10/10/20 19:24 Nacl 0.9% 1000 Ml IV 75 mls/hr DIRECT BUTCH Administration Insulin Glargine 10 units 10/08/20 10:00 10/12/20 09:56 Insulin Glargine 100 Units/Ml SUB-Q Not Given QAM [facility] Insulin Human Lispro 0 unit 10/01/20 16:30 10/12/20 13:51 Insulin Lispro 100 Unit/Ml Vial 3 Ml SUB-Q Not Given ACHS [facility] Protocol Megestrol Acetate 400 mg 10/02/20 10:00 10/12/20 09:34 Megestrol 400 Mg/10 Ml Oral Liqd PO 400 mg QDAY BUTCH Administration Metoprolol Tartrate 25 mg 10/11/20 22:00 10/12/20 09:34 Metoprolol Tartrate 25 Mg Tab PO 25 mg BID BUTCH Administration Midodrine 5 mg 10/08/20 12:00 10/12/20 09:34 Midodrine 5 Mg Tab PO 5 mg TID@0800,1200,1600 BUTCH Administration Ondansetron HCl 4 mg 10/01/20 15:50 Ondansetron 4 Mg/2 Ml Inj IV Q8H PRN Nausea And Vomiting Sodium Chloride 10 ml 10/01/20 22:00 10/12/20 09:35 Sodium Chloride 0.9% 10 Ml Flush Syringe IV 10 ml BID BUTCH Administration Sodium Chloride 10 ml 10/01/20 15:50 10/02/20 09:48 Sodium Chloride 0.9% 10 Ml Flush Syringe IV 10 ml PRN PRN Administration LINE FLUSH Valproic Acid 500 mg 10/04/20 23:45 10/12/20 05:10 Valproic Acid 250 Mg/5 Ml Oral Liqd PO 500 mg Q8HR BUTCH Administration Nutrition/Malnutrition Assess - Dietary Evaluation Nutrition/Malnutrition Findings: Nutrition Notes Start: 10/02/20 14 :56 Freq: Status: Active Protocol: Document 10/12/20 13:15 CW (Rec: 10/12/20 13:30 CW [id number]) Co-Sign 10/12/20 13:15 MK Nutrition Notes Initial or Follow up Reassessment Current Diagnosis CKD (stage V CKD),Coronary Artery Disease,Decubitus( Pressure Ulcer),Diabetes, Hyperlipidemia Other Pertinent Diagnosis COVID-19 (+), Encephalopathy, UTI, GERD, pneu, seizure d/o Current Diet Mechanical soft Labs/Tests K 3.5 BUN 31 Cr 3.6 BG 160 Pertinent Medications levetiracetam 500mg in Dextose at 400ml/hr Height 5 ft 5 in Weight 63 kg [place] Body Weight (kg) 56.81 BMI 23.1 Weight change and time frame Wt change noted, asked RN for reweigh Weight Status Appropriate Subjective/Other Information FU for new wt, PO/ONS intakes. Per chart on 10/11 [employer] recommended NPO till reassessment in 24hr. Communicated with RN about keeping pt NPO till [employer] recommendations. Percent of energy/protein needs met: 0%/0% Burn Absent Trauma Absent GI Symptoms None Difficulty In Swallowing,Chewing Food Allergy No Current % PO Negligible Minimum of two criteria No Reduced Proof Sorter Strength Measurably Reduced (severe) #3 Nutrition Diagnosis Increased nutrient needs ( specify in comment below) Diagnosis Progress(for reassessment Continues documentation) #2 Diagnosis Progress(for reassessment Continues documentation) Is patient on ventilator? No Is Patient Ambulatory and/or Out of Bed No REE-([facility]-confined to bed) 1322.076 Calculation Used for Recommendations [facility] Additional Notes Protein: >75 g (>1.2 g/kg) Fluid: 1,000-1,500ml or per MD order Nutrition Intervention Change Diet Order: Continue NPO Goal #1 Meet at least 80% of protein and energy needs via PO/ONS Goal #2 Wt gain/ maintenance Goal #3 Wound healing Anticipated Discharge Needs: Unable to determine at this time Follow-Up By: 10/17/20 Additional Comments FU for new wt, [employer] assessment/ diet advancement
[2020-10-12 13:57] LABS: Hemoglobin A2 Prime SEE SCANNED RESULTS; Hemoglobin Barts SEE SCANNED RESULTS; Hemoglobin E SEE SCANNED RESULTS; Hemoglobin G SEE SCANNED RESULTS; Hemoglobin Lepore SEE SCANNED RESULTS; Hemoglobin O-Arab SEE SCANNED RESULTS; Sickle Solubility Test SEE SCANNED RESULTS
[2020-10-12 13:58] LABS: IEF Confirm SEE SCANNED RESULTS; Interpretation SEE SCANNED RESULTS
--- NOTE | 2020-10-12 16:01 | XRay Report ---
XR abdomen 1V ap INDICATION: NGT placement. COMPARISON: None available. FINDINGS: The tip of the NG tube projects over the body of the stomach. Signer Name: Miah Asif MD Signed: 10/12/2020 3:57 PM Workstation Name: [email or web address]
--- NOTE | 2020-10-12 20:01 | Progress Note ---
Assessment and Plan # End stage renal disease: able to tolerate HD yesterday, earlier in week was unable due to clinical instability. Plan to continue maintenance hemodialysis // or prn moving forward - daily renal labs - avoid nephrotoxins - renally dose meds - renal diet # Hypertension: BP stable, is off losartan. UF only as tolerated # Atrial fibrillation with rapid ventricular response: appreciate cardiology # Anemia: current hemoglobin is around 10 # Thrombocytopenia: HIT panel pending # Bone mineral disorder and secondary hyperparathyroidism: continue binders with meals # Diabetes mellitus type 2 # Covid 19 pneumonia, altered mental status Subjective Date of service: 10/12/20 Principal diagnosis: COVID-19 PNA, AF with RVR Interval history: Remains thrombocytopenic. No other major changes. Tolerated HD well yesterday without issues Objective - Exam Narrative Exam: Direct examination not done due to COVID-19, need to limit PPE. Reviewed examination of primary team - Vital Signs Vital signs: Vital Signs - 12hr 10/12/20 10/12/20 10/12/20 08:33 09:00 09:34 Temperature Pulse Rate 66 71 Respiratory 24 Rate Blood Pressure 140/50 123/76 O2 Sat by Pulse 93 94 Oximetry 10/12/20 10/12/20 10/12/20 10:00 11:00 12:00 Temperature 97.6 F Pulse Rate 75 59 L 65 Respiratory 24 21 24 Rate Blood Pressure 141/49 122/45 128/43 O2 Sat by Pulse 92 97 97 Oximetry 10/12/20 10/12/20 10/12/20 13:00 14:00 15:00 Temperature Pulse Rate 67 71 68 Respiratory 25 H 26 H 25 H Rate Blood Pressure 149/53 143/74 142/43 O2 Sat by Pulse 95 95 92 Oximetry 10/12/20 10/12/20 10/12/20 16:00 17:00 18:00 Temperature 97.6 F Pulse Rate 71 77 76 Respiratory 20 24 26 H Rate Blood Pressure 157/63 151/47 135/51 O2 Sat by Pulse 87 94 94 Oximetry 10/12/20 19:57 Temperature 98.8 F Pulse Rate Respiratory Rate Blood Pressure O2 Sat by Pulse Oximetry - Lab 10/12/20 06:05 10/12/20 06:05 Most recent lab results Calcium 7.8 mg/dL (8.4-10.2) L 10/12/20 06:05 Medications & Allergies - Medications Allergies/Adverse Reactions: Allergies No Known Allergies Allergy (Unverified 02/02/18 15:43) Home Medications: Home Medications Medication Instructions Recorded Confirmed Last Taken Type Aspirin 81 mg PO DAILY 08/13/18 10/06/20 08/11/18 History Acetaminophen [Acetaminophen TAB] 650 mg PO Q4H PRN tablet 09/02/18 10/06/20 Unknown Rx Lispro Insulin [HumaLOG] 0 unit SUB-Q ACHS units 09/02/18 10/06/20 Unknown Rx ISOSORBIDE MONOnitrate [Imdur ER] 60 mg PO DAILY tablet 10/15/18 10/06/20 Unknown Rx carvediloL [Coreg] 12.5 mg PO BID tablet 10/15/18 10/06/20 Unknown Rx Losartan [Cozaar] 50 mg PO QDAY #30 tablet 11/01/18 10/06/20 Unknown Rx Lacosamide [Vimpat] 50 mg PO Q12HR #60 tablet 08/22/19 10/06/20 Unknown Rx Linagliptin [Tradjenta] 5 mg PO QDDIAB #30 tablet 08/22/19 10/06/20 Unknown Rx levETIRAcetam [Keppra TAB] 500 mg PO BID #60 tablet 08/22/19 10/06/20 Unknown Rx Famotidine [Pepcid] 20 mg PO DAILY #30 tablet 08/07/20 10/06/20 Unknown Rx NIFEdipine XL [Procardia Xl] 60 mg PO Q12HR #60 tablet 08/07/20 10/06/20 Unknown Rx hydrALAZINE [Apresoline TAB] 100 mg PO Q8HR #90 tab 08/07/20 10/06/20 Unknown Rx megestroL [Megestrol] 400 mg PO QDAY 30 Days #1 oral.liqd 08/07/20 10/06/20 Unknown Rx Active Medications: Generic Name Dose Route Start Last Admin Trade Name Freq PRN Reason Stop Dose Admin Acetaminophen 650 mg 10/01/20 15:50 10/11/20 23:51 Acetaminophen 325 Mg Tab PO 650 mg Q4H PRN Administration Pain MILD(1-3)/Fever >100.5/VERDE Albuterol 2.5 mg 10/01/20 15:50 Albuterol 2.5 Mg/3 Ml Nebu IH Q4HRT PRN Shortness Of Breath Apixaban 2.5 mg 10/06/20 22:00 10/12/20 09:34 Apixaban 2.5 Mg Tab PO 2.5 mg Q12HR BUTCH Administration Protocol Aspirin 81 mg 10/01/20 17:00 10/12/20 09:34 Aspirin 81 Mg Tab Chew PO 81 mg QDAY BUTCH Administration Atorvastatin Calcium 20 mg 10/06/20 22:00 10/11/20 23:19 Atorvastatin 20 Mg Tab PO 20 mg QHS BUTCH Administration Dextrose 50 ml 10/01/20 15:54 10/11/20 12:25 Dextrose 50% In Water (25gm) 50 Ml Syringe IV 15 ml Q30MIN PRN Administration Hypoglycemia Protocol Epoetin Jagjit 10,000 unit 10/02/20 09:19 10/11/20 15:45 Epoetin Jagjit 10,000 Unit/1 Ml Inj IV 10,000 unit ALANA PRN Administration hemodialysis Famotidine 20 mg 10/02/20 10:00 10/12/20 09:34 Famotidine 20 Mg Tab PO 20 mg DAILY BUTCH Administration Sodium Chloride 100 mls @ 999 mls/hr 10/02/20 09:19 Nacl 0.9% IV ALANA PRN Hypotension Levetiracetam 500 mg/ Dextrose 105 mls @ 400 mls/hr 10/09/20 10:00 10/12/20 09:33 IV 400 mls/hr Q12HR BUTCH Administration Sodium Chloride 1,000 mls @ 75 mls/hr 10/09/20 11:45 10/10/20 19:24 Nacl 0.9% 1000 Ml IV 75 mls/hr DIRECT BUTCH Administration Insulin Glargine 10 units 10/08/20 10:00 10/12/20 09:56 Insulin Glargine 100 Units/Ml SUB-Q Not Given QAM [facility] Insulin Human Lispro 0 unit 10/01/20 16:30 10/12/20 17:42 Insulin Lispro 100 Unit/Ml Vial 3 Ml SUB-Q Not Given ACHS [facility] Protocol Megestrol Acetate 400 mg 10/02/20 10:00 10/12/20 09:34 Megestrol 400 Mg/10 Ml Oral Liqd PO 400 mg QDAY BUTCH Administration Metoprolol Tartrate 25 mg 10/11/20 22:00 10/12/20 09:34 Metoprolol Tartrate 25 Mg Tab PO 25 mg BID BUTCH Administration Midodrine 5 mg 10/08/20 12:00 10/12/20 17:42 Midodrine 5 Mg Tab PO Not Given TID@0800,1200,1600 BUTCH Ondansetron HCl 4 mg 10/01/20 15:50 Ondansetron 4 Mg/2 Ml Inj IV Q8H PRN Nausea And Vomiting Sodium Chloride 10 ml 10/01/20 22:00 10/12/20 09:35 Sodium Chloride 0.9% 10 Ml Flush Syringe IV 10 ml BID BUTCH Administration Sodium Chloride 10 ml 10/01/20 15:50 10/02/20 09:48 Sodium Chloride 0.9% 10 Ml Flush Syringe IV 10 ml PRN PRN Administration LINE FLUSH Valproic Acid 500 mg 10/04/20 23:45 10/12/20 17:41 Valproic Acid 250 Mg/5 Ml Oral Liqd PO 500 mg Q8HR BUTCH Administration
[2020-10-12] MEDS: ACETAMINOPHEN 325 MG TAB PO PRN (22:55)
[2020-10-13 05:52] LABS: Hemoglobin 9.4 gm/dl (10.1-14.3); Mean Corpuscular HGB Conc 33 % (30-34); Mean Corpuscular Volume 96 fl (79-97); Red Blood Count 3.01 M/mm3 (3.65-5.03); Red Cell Distribution Width 18.3 % (13.2-15.2)
[2020-10-13 06:17] LABS: Platelet Count 44 K/mm3 (140-440)
[2020-10-13] MEDS: VALPROIC ACID 250 MG/5 ML ORAL LIQD PO SCH ×3 (06:48→22:03)
[2020-10-13 08:09] LABS: Anisocytosis 1+; Band Neutrophils # (Manual) 0.1 K/mm3; Poikilocytosis 1+; Total Cells Counted 100
[2020-10-13 08:10] LABS: Burr Cells 1+; Ovalocytes Few; Platelet Estimate Consistent w Auto; Target Cells Few; Tear Drop Cells Few
[2020-10-13] MEDS: INSULIN LISPRO 100 UNIT/ML VIAL 3 mL SUB-Q SCH ×4 (08:42→16:48)
[2020-10-13] MEDS ORDERED: SODIUM BICARBONATE 325 MG TAB FEEDTUBE PRN (09:00)
[2020-10-13] MEDS ORDERED: LIPASE 10,500/PROTEASE 25,000/AMYLASE 43,750 (UNITS) DR CAP FEEDTUBE PRN (09:00)
[2020-10-13] MEDS ORDERED: SIMPLE SYRUP 15 ML FEEDTUBE PRN ×2 (09:00)
--- NOTE | 2020-10-13 10:02 | Progress Note ---
Assessment and Plan Assessment and plan: 80 YO Female with HTN, DM, Seizure Disorder, HLD, Diastolic CHF, ESRD on HD(M,W,F), Vascular Dementia, Cerebral Atherosclerosis presents to emergency room after she was noted to have seizure-like activity after being discharged from [facility]. Patient was discharged on Depakote and Keppra. In the ER here, she was found to have metabolic encephalopathy, UTI, accelerated hypertension and pneumonia on chest x-ray. She was initiated on Pneumonia protocol and then admitted to the hospital. --Multifocal pneumonia Secondary to Covid Completed treatment --COVID-19 virus infection Taper off steroids Continue isolation -- Seizure Continue keppra 500 mg twice daily Depakote 750mg BID MRI of the brain without contrast performed-acute changes not found Awaiting EEG Neurology recs appreciated ---Atrial fibrillation with RVR On metoprolol and amiodarone On eliquis Cardiology following -- Urinary tract infection Antibiotics completed --Accelerated hypertension Continue current blood pressure medications-losartan and Coreg -- End-stage renal disease on hemodialysis Hemodialysis as scheduled --Oropharyngeal dysphagia --Diabetes mellitus Lantus and lispro --Vascular dementia Stable ---DVT prophylaxis SCD to bilateral lower extremities while in bed Heparin drip Hospital course Neurology was consulted for seizure episode. MRI brain and EEG advised. COVID- 19 test positive. Patient started on dexamethasone. ID consulted. Patient also on antibiotics for UTI. 10/05. Patients mental status has improved. MRI brain performed showed no acute abnormalities [this was done without contrast as patient has ESRD]. Overnight, patient had A. fib with RVR with rates in the 100-120s. Cardiology has been consulted. Beta-jason dose has been adjusted. Patient started on heparin drip 10/06. Heart rate up to 120's. Patient may need to be started on Cardizem drip however blood pressure is soft. Cardiology will consider amiodarone if not improving. Awaiting cardiology evaluation. She denies any chest pain or palpitations this morning. Afebrile overnight. 10/07. Coreg switched to metoprolol by cardiology. Heparin switched to eliquis. Started on amiodarone drip but as patient could not be transferred to CCU/IMCU due to unavailable beds, she was switched to PO amiodarone by cardiology. 10/08. HR still elevated. BP soft today (normal saline bolus ordered. Started on midodrine for now. Had hypoglycemia overnight. Lantus reduced by 50%. Labs ordered. 10/09. Patient heart rate remains elevated. Consider transferring to [facility] and starting amiodarone drip. We will discuss with cardiology. Patient not taking p.o. therefore we will start Keppra IV. 10/10. Amiodarone drip held per nursing secondary to bradycardia. Continue anticoagulation with heparin drip. Hemodialysis on hold per nephrology given hemodynamic instability. Resume hemodialysis in a.m. if stable. 10/11. Repeat echocardiogram when patient clinically stable. Patient currently rate controlled on metoprolol 25 mg twice daily. Continue low-dose Eliquis. Check HIT panel. Continue Lantus and sliding scale insulin. Continue AEDs and seizure precautions. Continue midodrine 10/12. HIT panel order given thrombocytopenia. Continue Eliquis for now. Repeat echocardiogram per cardiology. 10/13. Follow-up HIT panel. Continue Eliquis. Rate controlled with metoprolol 25 mg twice daily. Continue midodrine for hypotension. Continue Keppra and valproic acid for seizure disorder. Patient with no new seizure activity. Follow-up EEG. Consider transfer to third floor with telemetry. Speech therapy reports that the patient's swallowing function has declined. The patient is unable to effectively manage her secretions in addition to bolus holding and a swallow reflex delay. Recommendations are for n.p.o. DHT placed and dietitian to start tube feedings. History Interval history: 80 YO Female with HTN, DM, Seizure Disorder, HLD, Diastolic CHF, ESRD on HD(M,W,F), Vascular Dementia, Cerebral Atherosclerosis presents to emergency room after she was noted to have seizure-like activity after being discharged from [facility]. Patient was discharged on Depakote and Keppra. In the ER here, she was found to have metabolic encephalopathy, UTI, accelerated hypertension and pneumonia on chest x-ray. She was initiated on Pneumonia protocol and then admitted to the hospital. No new issues overnight. Patient unable to take p.o. Hospitalist Physical - Constitutional Vitals: Temp Pulse Resp BP Pulse Ox 97.9 F 74 22 119/52 96 10/13/20 09:05 10/13/20 09:30 10/13/20 09:05 10/13/20 09:30 10/13/20 09:05 General appearance: Present: other (Altered mental status) - EENT Eyes: Present: PERRL, EOM intact ENT: hearing intact, clear oral mucosa, dentition normal - Neck Neck: Present: supple, normal ROM - Respiratory Respiratory effort: normal Respiratory: bilateral: CTA - Cardiovascular Rhythm: regular Heart Sounds: Present: S1 & S2. Absent: gallop, rub - Extremities Extremities: no ischemia, No edema, Full ROM - Abdominal General gastrointestinal: soft, non-tender, non-distended, normal bowel sounds - Integumentary Integumentary: Present: clear, warm, dry - Neurologic Neurologic: CNII-XII intact, moves all extremities Results - Labs CBC & Chem 7: 10/13/20 04:43 10/13/20 04:43 Labs: Laboratory Last Values WBC 5.6 K/mm3 (4.5-11.0) 10/13/20 04:43 RBC 3.01 M/mm3 (3.65-5.03) L 10/13/20 04:43 Hgb 9.4 gm/dl (10.1-14.3) L 10/13/20 04:43 Hgb Comment See scanned results 10/06/20 05:56 Hct 29.0 % (30.3-42.9) L 10/13/20 04:43 MCV 96 fl (79-97) 10/13/20 04:43 MCH 31 pg (28-32) 10/13/20 04:43 MCHC 33 % (30-34) 10/13/20 04:43 RDW 18.3 % (13.2-15.2) H 10/13/20 04:43 Plt Count 44 K/mm3 (140-440) L 10/13/20 04:43 Lymph % (Auto) 8.3 % (13.4-35.0) L 10/09/20 03:00 Murray % (Auto) 4.8 % (0.0-7.3) 10/09/20 03:00 Eos % (Auto) 0.8 % (0.0-4.3) 10/09/20 03:00 Baso % (Auto) 0.7 % (0.0-1.8) 10/09/20 03:00 Lymph # (Auto) 0.2 K/mm3 (1.2-5.4) L 10/09/20 03:00 Murray # (Auto) 0.1 K/mm3 (0.0-0.8) 10/09/20 03:00 Eos # (Auto) 0.0 K/mm3 (0.0-0.4) 10/09/20 03:00 Baso # (Auto) 0.0 K/mm3 (0.0-0.1) 10/09/20 03:00 Add Manual Diff Complete 10/13/20 04:43 Total Counted 100 10/13/20 04:43 Seg Neutrophils % Production Recorder 10/13/20 04:43 Seg Neuts % (Manual) 94.0 % (40.0-70.0) H 10/13/20 04:43 Band Neutrophils % 1.0 % 10/13/20 04:43 Lymphocytes % (Manual) 3.0 % (13.4-35.0) L 10/13/20 04:43 Monocytes % (Manual) 1.0 % (0.0-7.3) 10/13/20 04:43 Metamyelocytes % 1.0 % 10/13/20 04:43 Nucleated RBC % Not Reportable 10/13/20 04:43 Seg Neutrophils # 2.5 K/mm3 (1.8-7.7) 10/09/20 03:00 Seg Neutrophils # Man 5.3 K/mm3 (1.8-7.7) 10/13/20 04:43 Band Neutrophils # 0.1 K/mm3 10/13/20 04:43 Lymphocytes # (Manual) 0.2 K/mm3 (1.2-5.4) L 10/13/20 04:43 Abs React Lymphs (Man) 0.0 K/mm3 10/13/20 04:43 Monocytes # (Manual) 0.1 K/mm3 (0.0-0.8) 10/13/20 04:43 Eosinophils # (Manual) 0.0 K/mm3 (0.0-0.4) 10/13/20 04:43 Basophils # (Manual) 0.0 K/mm3 (0.0-0.1) 10/13/20 04:43 Metamyelocytes # 0.1 K/mm3 10/13/20 04:43 Myelocytes # 0.0 K/mm3 10/13/20 04:43 Promyelocytes # 0.0 K/mm3 10/13/20 04:43 Blast Cells # 0.0 K/mm3 10/13/20 04:43 WBC Morphology Not Reportable 10/13/20 04:43 Hypersegmented Neuts Not Reportable 10/13/20 04:43 Hyposegmented Neuts Not Reportable 10/13/20 04:43 Hypogranular Neuts Not Reportable 10/13/20 04:43 Smudge Cells Not Reportable 10/13/20 04:43 Toxic Granulation Not Reportable 10/13/20 04:43 Toxic Vacuolation Not Reportable 10/13/20 04:43 Dohle Bodies Not Reportable 10/13/20 04:43 Pelger-Huet Anomaly Not Reportable 10/13/20 04:43 Richard Rods Not Reportable 10/13/20 04:43 Platelet Estimate Consistent w auto 10/13/20 04:43 Clumped Platelets Not Reportable 10/13/20 04:43 Plt Clumps, EDTA Not Reportable 10/13/20 04:43 Large Platelets Not Reportable 10/13/20 04:43 Giant Platelets Not Reportable 10/13/20 04:43 Platelet Satelliting Not Reportable 10/13/20 04:43 Plt Morphology Comment Not Reportable 10/13/20 04:43 RBC Morphology Not Reportable 10/13/20 04:43 Dimorphic RBCs Not Reportable 10/13/20 04:43 Polychromasia Not Reportable 10/13/20 04:43 Hypochromasia Not Reportable 10/13/20 04:43 Poikilocytosis 1+ 10/13/20 04:43 Anisocytosis 1+ 10/13/20 04:43 Microcytosis Not Reportable 10/13/20 04:43 Macrocytosis Not Reportable 10/13/20 04:43 Spherocytes Not Reportable 10/13/20 04:43 Pappenheimer Bodies Not Reportable 10/13/20 04:43 Sickle Cells Not Reportable 10/13/20 04:43 Target Cells Few 10/13/20 04:43 Tear Drop Cells Few 10/13/20 04:43 Ovalocytes Few 10/13/20 04:43 Helmet Cells Not Reportable 10/13/20 04:43 Cavazos-Dorris Bodies Not Reportable 10/13/20 04:43 Crumpler Rings Not Reportable 10/13/20 04:43 Hibernia Cells 1+ 10/13/20 04:43 Bite Cells Not Reportable 10/13/20 04:43 Crenated Cell Not Reportable 10/13/20 04:43 Elliptocytes Not Reportable 10/13/20 04:43 Acanthocytes (Spur) Not Reportable 10/13/20 04:43 Rouleaux Not Reportable 10/13/20 04:43 Hemoglobin C Crystals Not Reportable 10/13/20 04:43 Schistocytes Not Reportable 10/13/20 04:43 Malaria parasites Not Reportable 10/13/20 04:43 Sickle Cell Solubility See scanned results 10/06/20 05:56 Hemoglobin A See scanned results 10/06/20 05:56 Hemoglobin A2 See scanned results 10/06/20 05:56 Hemoglobin A2 Prime See scanned results 10/06/20 05:56 Hemoglobin C See scanned results 10/06/20 05:56 Hemoglobin D See scanned results 10/06/20 05:56 Hemoglobin E See scanned results 10/06/20 05:56 Hgb F Diffential Stain See scanned results 10/06/20 05:56 Hemoglobin F Quant See scanned results 10/06/20 05:56 Hemoglobin G See scanned results 10/06/20 05:56 Hemoglobin S See scanned results 10/06/20 05:56 Hemoglobin [place] See scanned results 10/06/20 05:56 Hemoglobin [place] See scanned results 10/06/20 05:56 Hemoglobin Isak See scanned results 10/06/20 05:56 Variant Hemoglobin See scanned results 10/06/20 05:56 Abnorm Hgb IEF Confirm See scanned results 10/06/20 05:56 Hemoglobin Interpret See scanned results 10/06/20 05:56 Hemoglobinopathy Note See scanned results 10/06/20 05:56 Cristofer Bodies Not Reportable 10/13/20 04:43 Hem Pathologist Commnt No 10/13/20 04:43 PT 13.4 Sec. (12.2-14.9) 10/05/20 20:39 INR 1.04 (0.87-1.13) 10/05/20 20:39 APTT 37.6 Sec. (24.2-36.6) H 10/05/20 20:39 D-Dimer 1609.74 ng/mlDDU (0-234) H 10/01/20 16:16 Heparin Anti-Xa Level 0.18 U.I./ml (0.3-0.7) L 10/06/20 05:56 Sodium 137 mmol/L (137-145) 10/13/20 04:43 Potassium 3.5 mmol/L (3.6-5.0) L 10/13/20 04:43 Chloride 96.8 mmol/L (98-107) L 10/13/20 04:43 Carbon Dioxide 27 mmol/L (22-30) 10/13/20 04:43 Anion Gap 17 mmol/L 10/13/20 04:43 BUN 37 mg/dL (7-17) H 10/13/20 04:43 Creatinine 4.1 mg/dL (0.6-1.2) H 10/13/20 04:43 Estimated GFR 13 ml/min 10/13/20 04:43 BUN/Creatinine Ratio 9 % 10/13/20 04:43 Glucose 130 mg/dL (65-100) H 10/13/20 04:43 POC Glucose 130 mg/dL (70-105) H 10/13/20 07:56 Lactic Acid 1.10 mmol/L (0.7-2.0) 10/01/20 16:16 Calcium 8.0 mg/dL (8.4-10.2) L 10/13/20 04:43 Ferritin 1926.0 ng/mL (10.0-200.0) H 10/03/20 09:30 Total Bilirubin 0.30 mg/dL (0.1-1.2) 10/09/20 03:00 AST 31 units/L (5-40) 10/09/20 03:00 ALT 9 units/L (7-56) 10/09/20 03:00 Alkaline Phosphatase 38 units/L (35-129) 10/09/20 03:00 Ammonia 20.0 umol/L (25-60) L 10/01/20 11:39 Lactate Dehydrogenase 241 units/L (91-180) H 10/03/20 09:30 Total Creatine Kinase 54 units/L (30-135) 10/01/20 11:39 C-Reactive Protein 2.70 mg/dL (0.00-1.30) H 10/03/20 09:30 Serum Total Protein 5.6 g/dL (6.1-8.1) L 10/06/20 05:56 Total Protein 4.7 g/dL (6.3-8.2) L 10/09/20 03:00 Albumin 2.3 g/dL (3.9-5) L 10/09/20 03:00 Albumin/Globulin Ratio 1.0 % 10/09/20 03:00 Csxyg-1-Cpkrsjeyx 0.3 g/dL (0.2-0.3) 10/06/20 05:56 Vwxar-6-Mxriqckzo 0.7 g/dL (0.5-0.9) 10/06/20 05:56 Beta Globulins 0.4 g/dL (0.2-0.5) 10/06/20 05:56 Gamma Globulins 1.5 g/dL (0.8-1.7) 10/06/20 05:56 Abnorm Protein Band 1 see below 10/06/20 05:56 PEP Interpretation see below H 10/06/20 05:56 Procalcitonin 0.52 ng/mL (<0.15) 10/03/20 09:30 TSH 6.100 mlU/mL (0.270-4.200) H 10/01/20 11:39 Free T4 1.40 ng/dL (0.76-1.46) 10/03/20 09:30 Urine Color [place] (Yellow) 10/01/20 13:15 Urine Turbidity Cloudy (Clear) 10/01/20 13:15 Urine pH 7.0 (5.0-7.0) 10/01/20 13:15 Ur Specific [place] 1.012 (1.003-1.030) 10/01/20 13:15 Urine Protein >500 mg/dL (Negative) 10/01/20 13:15 Urine Glucose (UA) Neg mg/dL (Negative) 10/01/20 13:15 Urine Ketones Neg mg/dL (Negative) 10/01/20 13:15 Urine Blood Sm (Negative) 10/01/20 13:15 Urine Nitrite Neg (Negative) 10/01/20 13:15 Urine Bilirubin Neg (Negative) 10/01/20 13:15 Urine Urobilinogen < 2.0 mg/dL (<2.0) 10/01/20 13:15 Ur Leukocyte Esterase Lg (Negative) 10/01/20 13:15 Urine WBC (Auto) > 182.0 /HPF (0.0-6.0) H 10/01/20 13:15 Urine RBC (Auto) 18.0 /HPF (0.0-6.0) 10/01/20 13:15 U Epithel Cells (Auto) 4.0 /HPF (0-13.0) 10/01/20 13:15 Urine Bacteria (Auto) 1+ /HPF (Negative) 10/01/20 13:15 Urine WBC Clumps 2+ /HPF 10/01/20 13:15 Urine Mucus Few /HPF 10/01/20 13:15 Random Vancomycin 7.6 ug/mL (0-40.0) 10/03/20 09:30 Salicylates < 0.3 mg/dL (2.8-20.0) L 10/01/20 11:39 Urine Opiates Screen Negative 10/01/20 13:15 Urine Methadone Screen Negative 10/01/20 13:15 Acetaminophen 5.0 ug/mL (10.0-30.0) L 10/01/20 11:39 Ur Barbiturates Screen Negative 10/01/20 13:15 Ur Phencyclidine Scrn Negative 10/01/20 13:15 Ur Amphetamines Screen Negative 10/01/20 13:15 U Benzodiazepines Scrn Negative 10/01/20 13:15 Urine Cocaine Screen Negative 10/01/20 13:15 U Marijuana (THC) Screen Negative 10/01/20 13:15 Drugs of Abuse Note Disclamer 10/01/20 13:15 Coronavirus (PCR) Positive (Negative) A 10/02/20 Unknown Barrientos/IV: Voiding Method Incontinent IV Catheter Type [right chest] PICC Line IV Catheter Type [Right INT / Saline Lock Forearm] IV Catheter Type [Left Upper dialysis access arm] Active Medications - Current Medications Current Medications: Generic Name Dose Route Start Last Admin Trade Name Freq PRN Reason Stop Dose Admin Acetaminophen 650 mg 10/01/20 15:50 10/12/20 22:55 Acetaminophen 325 Mg Tab PO 650 mg Q4H PRN Administration Pain MILD(1-3)/Fever >100.5/VERDE Albuterol 2.5 mg 10/01/20 15:50 Albuterol 2.5 Mg/3 Ml Nebu IH Q4HRT PRN Shortness Of Breath Lipase/Protease/Amylase 1 each 10/13/20 09:00 Lipase 10,500/Protease 25,000/Amylase 43,750 (Units) Dr Pickering FEEDTUBE PRN PRN For Clogged Feeding Tube Apixaban 2.5 mg 10/06/20 22:00 10/12/20 22:54 Apixaban 2.5 Mg Tab PO 2.5 mg Q12HR BUTCH Administration Protocol Aspirin 81 mg 10/01/20 17:00 10/12/20 09:34 Aspirin 81 Mg Tab Chew PO 81 mg QDAY BUTCH Administration Atorvastatin Calcium 20 mg 10/06/20 22:00 10/12/20 22:54 Atorvastatin 20 Mg Tab PO 20 mg QHS BUTCH Administration Dextrose 50 ml 10/01/20 15:54 10/11/20 12:25 Dextrose 50% In Water (25gm) 50 Ml Syringe IV 15 ml Q30MIN PRN Administration Hypoglycemia Protocol Epoetin Jagjit 10,000 unit 10/02/20 09:19 10/11/20 15:45 Epoetin Jagjit 10,000 Unit/1 Ml Inj IV 10,000 unit ALANA PRN Administration hemodialysis Famotidine 20 mg 10/02/20 10:00 10/12/20 09:34 Famotidine 20 Mg Tab PO 20 mg DAILY BUTCH Administration Sodium Chloride 100 mls @ 999 mls/hr 10/02/20 09:19 Nacl 0.9% IV ALANA PRN Hypotension Levetiracetam 500 mg/ Dextrose 105 mls @ 400 mls/hr 10/09/20 10:00 10/12/20 22:46 IV 400 mls/hr Q12HR BUTCH Administration Sodium Chloride 1,000 mls @ 75 mls/hr 10/09/20 11:45 10/10/20 19:24 Nacl 0.9% 1000 Ml IV 75 mls/hr DIRECT BUTCH Administration Insulin Human Lispro 0 unit 10/01/20 16:30 10/13/20 08:50 Insulin Lispro 100 Unit/Ml Vial 3 Ml SUB-Q Not Given ACHS BUTCH Protocol Megestrol Acetate 400 mg 10/02/20 10:00 10/12/20 09:34 Megestrol 400 Mg/10 Ml Oral Liqd PO 400 mg QDAY BUTCH Administration Metoprolol Tartrate 25 mg 10/11/20 22:00 10/12/20 22:55 Metoprolol Tartrate 25 Mg Tab PO 25 mg BID BUTCH Administration Midodrine 5 mg 10/08/20 12:00 10/12/20 17:42 Midodrine 5 Mg Tab PO Not Given TID@0800,1200,1600 BUTCH Ondansetron HCl 4 mg 10/01/20 15:50 Ondansetron 4 Mg/2 Ml Inj IV Q8H PRN Nausea And Vomiting Simple Syrup 15 ml 10/13/20 09:00 Simple Syrup 15 Ml FEEDTUBE PRN PRN Hypoglycemia Simple Syrup 30 ml 10/13/20 09:00 Simple Syrup 15 Ml FEEDTUBE PRN PRN Hypoglycemia Sodium Bicarbonate 325 mg 10/13/20 09:00 Sodium Bicarbonate 325 Mg Tab FEEDTUBE PRN PRN For Clogged Feeding Tube Sodium Chloride 10 ml 10/01/20 22:00 10/12/20 22:55 Sodium Chloride 0.9% 10 Ml Flush Syringe IV 10 ml BID BUTCH Administration Sodium Chloride 10 ml 10/01/20 15:50 10/02/20 09:48 Sodium Chloride 0.9% 10 Ml Flush Syringe IV 10 ml PRN PRN Administration LINE FLUSH Valproic Acid 500 mg 10/04/20 23:45 10/13/20 06:48 Valproic Acid 250 Mg/5 Ml Oral Liqd PO 500 mg Q8HR BUTCH Administration Nutrition/Malnutrition Assess - Dietary Evaluation Nutrition/Malnutrition Findings: Nutrition Notes Start: 10/02/20 14:56 Freq: Status: Active Protocol: Document 10/13/20 08:49 LP (Rec: 10/13/20 08:55 LP [id number]) Nutrition Notes Initial or Follow up Reassessment Current Diagnosis CKD (stage V CKD),Coronary Artery Disease,Decubitus( Pressure Ulcer),Diabetes, Hyperlipidemia Other Pertinent Diagnosis COVID-19 (+), Encephalopathy, UTI, GERD, pneu, seizure d/o Current Diet NPO Labs/Tests K 3.5 BUN 37 Cr 4.1 BG 130 Pertinent Medications Reviewed Height 5 ft 5 in Weight 63 kg [place] Body Weight (kg) 56.81 BMI 23.1 Weight Status Appropriate Subjective/Other Information Consult for TF. Pt failed ELECTRONICS INSPECTOR evaluation. Burn Absent Trauma Absent GI Symptoms None Difficulty In Swallowing,Chewing Food Allergy No Current % PO Negligible Minimum of two criteria No Reduced Director Diabetes Strength Measurably Reduced (severe) #3 Nutrition Diagnosis Increased nutrient needs ( specify in comment below) Diagnosis Progress(for reassessment Continues documentation) #2 Nutrition Diagnosis Inadequate oral intake Diagnosis Progress(for reassessment Continues documentation) Is patient on ventilator? No Is Patient Ambulatory and/or Out of Bed No REE-([place] Jeor-confined to bed) 1322.076 Calculation Used [facility]ations [facility] Additional Notes Protein: >75 g (>1.2 g/kg) Fluid: 1,000-1,500ml or per MD order Nutrition Intervention Change Diet Order: TF Nutrition Support: Glucerna 1.2 at 50ml/hr. Flush with 80ml q4h Kcal 1,440 Protein (gm) 72 Fluid (mL) 966 Add Supplement/Snack (indicate name/kcal D/C /protein ) Goal #1 Meet at least 80% of kcal and protein needs via TF Goal #2 Wt gain/ maintenance Goal #3 Wound healing Anticipated Discharge Needs: Unable to determine at this time Follow-Up By: 10/15/20 Additional Comments Follow for TF start and tolerance
[2020-10-13] MEDS: MIDODRINE 5 MG TAB PO SCH ×4 (10:13→16:47)
[2020-10-13] MEDS: ASPIRIN 81 MG TAB CHEW PO SCH (13:40)
[2020-10-13] MEDS: levETIRAcetam 500 MG in DEXTROSE 5% IN WATER 100 ML IV SCH ×2 (13:40→22:03)
[2020-10-13] MEDS: APIXABAN 2.5 MG TAB PO SCH ×2 (13:40→22:03)
[2020-10-13] MEDS: FAMOTIDINE 20 MG TAB PO SCH (13:40)
[2020-10-13] MEDS: MEGESTROL 400 MG/10 ML ORAL LIQD PO SCH (13:41)
[2020-10-13] MEDS: METOPROLOL TARTRATE 25 MG TAB PO SCH ×2 (13:42→22:04)
--- NOTE | 2020-10-13 21:24 | Progress Note ---
Assessment and Plan # End stage renal disease: continue maintenance hemodialysis // or prn moving forward, due today if tolerated - daily renal labs - avoid nephrotoxins - renally dose meds - renal diet # Hypertension: BP stable, is off losartan. UF only as tolerated # Atrial fibrillation with rapid ventricular response: appreciate cardiology # Anemia: current hemoglobin is around 10 # Thrombocytopenia: HIT panel pending # Bone mineral disorder and secondary hyperparathyroidism: continue binders with meals # Diabetes mellitus type 2 # Covid 19 pneumonia, altered mental status Subjective Date of service: 10/13/20 Principal diagnosis: COVID-19 PNA, AF with RVR Interval history: Remains thrombocytopenic. No other major changes. Has not had HD yet Objective - Exam Narrative Exam: Direct examination not done due to COVID-19, need to limit PPE. Reviewed examination of primary team, patient was seen through ICU window - Vital Signs Vital signs: Vital Signs - 12hr 10/13/20 10/13/20 10/13/20 09:30 09:45 10:00 Temperature Pulse Rate 74 86 83 Respiratory Rate Blood Pressure 119/52 113/49 121/40 O2 Sat by Pulse Oximetry O2 Sat by Pulse Oximetry [ Anterior Bilateral] 10/13/20 10/13/20 10/13/20 10:01 10:15 10:30 Temperature Pulse Rate 89 84 91 H Respiratory 27 H Rate Blood Pressure 121/40 100/47 109/46 O2 Sat by Pulse 94 Oximetry O2 Sat by Pulse Oximetry [ Anterior Bilateral] 10/13/20 10/13/20 10/13/20 10:45 11:00 11:15 Temperature Pulse Rate 96 H 90 96 H Respiratory 27 H Rate Blood Pressure 119/54 111/49 104/49 O2 Sat by Pulse 100 Oximetry O2 Sat by Pulse Oximetry [ Anterior Bilateral] 10/13/20 10/13/20 10/13/20 11:30 11:45 12:00 Temperature 97.4 F L Pulse Rate 93 H 94 H 95 H Respiratory 37 H Rate Blood Pressure 116/53 116/55 110/54 O2 Sat by Pulse 98 Oximetry O2 Sat by Pulse Oximetry [ Anterior Bilateral] 10/13/20 10/13/20 10/13/20 12:15 12:30 12:45 Temperature Pulse Rate 91 H 86 85 Respiratory Rate Blood Pressure 104/51 98/47 138/58 O2 Sat by Pulse Oximetry O2 Sat by Pulse Oximetry [ Anterior Bilateral] 10/13/20 10/13/20 10/13/20 13:00 14:01 15:01 Temperature 97.4 F L Pulse Rate 89 95 H 82 Respiratory 26 H 30 H 28 H Rate Blood Pressure 151/61 132/51 125/47 O2 Sat by Pulse 86 96 98 Oximetry O2 Sat by Pulse 96 Oximetry [ Anterior Bilateral] 10/13/20 10/13/20 10/13/20 16:00 16:01 17:01 Temperature 98.2 F Pulse Rate 77 85 Respiratory 26 H 33 H Rate Blood Pressure 122/43 136/57 O2 Sat by Pulse Oximetry O2 Sat by Pulse Oximetry [ Anterior Bilateral] 10/13/20 10/13/20 10/13/20 18:01 19:01 19:29 Temperature Pulse Rate 82 86 91 H Respiratory 32 H 33 H Rate Blood Pressure 130/44 126/44 O2 Sat by Pulse 95 93 Oximetry O2 Sat by Pulse Oximetry [ Anterior Bilateral] 10/13/20 10/13/20 20:01 20:04 Temperature Pulse Rate 83 Respiratory 34 H Rate Blood Pressure 112/47 O2 Sat by Pulse 95 95 Oximetry O2 Sat by Pulse Oximetry [ Anterior Bilateral] - Lab 10/13/20 04:43 10/13/20 04:43 Most recent lab results Calcium 8.0 mg/dL (8.4-10.2) L 10/13/20 04:43 Medications & Allergies - Medications Allergies/Adverse Reactions: Allergies No Known Allergies Allergy (Unverified 02/02/18 15:43) Home Medications: Home Medications Medication Instructions Recorded Confirmed Last Taken Type Aspirin 81 mg PO DAILY 08/13/18 10/06/20 08/11/18 History Acetaminophen [Acetaminophen TAB] 650 mg PO Q4H PRN tablet 09/02/18 10/06/20 Unknown Rx Lispro Insulin [HumaLOG] 0 unit SUB-Q ACHS units 09/02/18 10/06/20 Unknown Rx ISOSORBIDE MONOnitrate [Imdur ER] 60 mg PO DAILY tablet 10/15/18 10/06/20 Unknown Rx carvediloL [Coreg] 12.5 mg PO BID tablet 10/15/18 10/06/20 Unknown Rx Losartan [Cozaar] 50 mg PO QDAY #30 tablet 11/01/18 10/06/20 Unknown Rx Lacosamide [Vimpat] 50 mg PO Q12HR #60 tablet 08/22/19 10/06/20 Unknown Rx Linagliptin [Tradjenta] 5 mg PO QDDIAB #30 tablet 08/22/19 10/06/20 Unknown Rx levETIRAcetam [Keppra TAB] 500 mg PO BID #60 tablet 08/22/19 10/06/20 Unknown Rx Famotidine [Pepcid] 20 mg PO DAILY #30 tablet 08/07/20 10/06/20 Unknown Rx NIFEdipine XL [Procardia Xl] 60 mg PO Q12HR #60 tablet 08/07/20 10/06/20 Unknown Rx hydrALAZINE [Apresoline TAB] 100 mg PO Q8HR #90 tab 08/07/20 10/06/20 Unknown Rx megestroL [Megestrol] 400 mg PO QDAY 30 Days #1 oral.liqd 08/07/20 10/06/20 Unk nown Rx Active Medications: Generic Name Dose Route Start Last Admin Trade Name Freq PRN Reason Stop Dose Admin Acetaminophen 650 mg 10/01/20 15:50 10/12/20 22:55 Acetaminophen 325 Mg Tab PO 650 mg Q4H PRN Administration Pain MILD(1-3)/Fever >100.5/VERDE Albuterol 2.5 mg 10/01/20 15:50 Albuterol 2.5 Mg/3 Ml Nebu IH Q4HRT PRN Shortness Of Breath Lipase/Protease/Amylase 1 each 10/13/20 09:00 Lipase 10,500/Protease 25,000/Amylase 43,750 (Units) Dr Pickering FEEDTUBE PRN PRN For Clogged Feeding Tube Apixaban 2.5 mg 10/06/20 22:00 10/13/20 13:40 Apixaban 2.5 Mg Tab PO 2.5 mg Q12HR BUTCH Administration Protocol Aspirin 81 mg 10/01/20 17:00 10/13/20 13:40 Aspirin 81 Mg Tab Chew PO 81 mg QDAY BUTCH Administration Atorvastatin Calcium 20 mg 10/06/20 22:00 10/12/20 22:54 Atorvastatin 20 Mg Tab PO 20 mg QHS BUTCH Administration Dextrose 50 ml 10/01/20 15:54 10/11/20 12:25 Dextrose 50% In Water (25gm) 50 Ml Syringe IV 15 ml Q30MIN PRN Administration Hypoglycemia Protocol Epoetin Jagjit 10,000 unit 10/02/20 09:19 10/11/20 15:45 Epoetin Jagjit 10,000 Unit/1 Ml Inj IV 10,000 unit ALANA PRN Administration hemodialysis Famotidine 20 mg 10/02/20 10:00 10/13/20 13:40 Famotidine 20 Mg Tab PO 20 mg DAILY BUTCH Administration Sodium Chloride 100 mls @ 999 mls/hr 10/02/20 09:19 Nacl 0.9% IV ALANA PRN Hypotension Levetiracetam 500 mg/ Dextrose 105 mls @ 400 mls/hr 10/09/20 10:00 10/13/20 13:40 IV 400 mls/hr Q12HR BUTCH Administration Sodium Chloride 1,000 mls @ 75 mls/hr 10/09/20 11:45 10/10/20 19:24 Nacl 0.9% 1000 Ml IV 75 mls/hr DIRECT BUTCH Administration Insulin Human Lispro 0 unit 10/01/20 16:30 10/13/20 16:48 Insulin Lispro 100 Unit/Ml Vial 3 Ml SUB-Q Not Given ACHS BUTCH Protocol Megestrol Acetate 400 mg 10/02/20 10:00 10/13/20 13:41 Megestrol 400 Mg/10 Ml Oral Liqd PO 400 mg QDAY BUTCH Administration Metoprolol Tartrate 25 mg 10/11/20 22:00 10/13/20 13:42 Metoprolol Tartrate 25 Mg Tab PO Not Given BID BUTCH Midodrine 5 mg 10/08/20 12:00 10/13/20 16:47 Midodrine 5 Mg Tab PO 5 mg TID@0800,1200,1600 BUTCH Administration Ondansetron HCl 4 mg 10/01/20 15:50 Ondansetron 4 Mg/2 Ml Inj IV Q8H PRN Nausea And Vomiting Simple Syrup 15 ml 10/13/20 09:00 Simple Syrup 15 Ml FEEDTUBE PRN PRN Hypoglycemia Simple Syrup 30 ml 10/13/20 09:00 Simple Syrup 15 Ml FEEDTUBE PRN PRN Hypoglycemia Sodium Bicarbonate 325 mg 10/13/20 09:00 Sodium Bicarbonate 325 Mg Tab FEEDTUBE PRN PRN For Clogged Feeding Tube Sodium Chloride 10 ml 10/01/20 22:00 10/13/20 13:41 Sodium Chloride 0.9% 10 Ml Flush Syringe IV 10 ml BID BUTCH Administration Sodium Chloride 10 ml 10/01/20 15:50 10/02/20 09:48 Sodium Chloride 0.9% 10 Ml Flush Syringe IV 10 ml PRN PRN Administration LINE FLUSH Valproic Acid 500 mg 10/04/20 23:45 10/13/20 16:47 Valproic Acid 250 Mg/5 Ml Oral Liqd PO 500 mg Q8HR BUTCH Administration
[2020-10-14] MEDS: INSULIN LISPRO 100 UNIT/ML SUB-Q SCH ×4 (05:42→17:12)
[2020-10-14] MEDS: VALPROIC ACID 250 MG/5 ML ORAL LIQD PO SCH ×3 (05:47→22:11)
[2020-10-14] MEDS: levETIRAcetam 500 MG in DEXTROSE 5% IN WATER 100 ML IV SCH (10:54)
[2020-10-14] MEDS: FAMOTIDINE 20 MG TAB PO SCH (10:54)
[2020-10-14] MEDS: MEGESTROL 400 MG/10 ML ORAL LIQD PO SCH (10:54)
[2020-10-14] MEDS: ASPIRIN 81 MG TAB CHEW PO SCH (10:54)
[2020-10-14] MEDS: METOPROLOL TARTRATE 25 MG TAB PO SCH ×2 (10:55→22:01)
[2020-10-14] MEDS: MIDODRINE 5 MG TAB PO SCH ×3 (10:56→17:15)
[2020-10-14] MEDS: APIXABAN 2.5 MG TAB PO SCH ×2 (10:56→22:11)
--- NOTE | 2020-10-14 11:26 | Progress Note ---
Assessment and Plan Assessment and plan: 80 YO Female with HTN, DM, Seizure Disorder, HLD, Diastolic CHF, ESRD on HD(M,W,F), Vascular Dementia, Cerebral Atherosclerosis presents to emergency room after she was noted to have seizure-like activity after being discharged from [facility]. Patient was discharged on Depakote and Keppra. In the ER here, she was found to have metabolic encephalopathy, UTI, accelerated hypertension and pneumonia on chest x-ray. She was initiated on Pneumonia protocol and then admitted to the hospital. --Multifocal pneumonia Secondary to Covid Completed treatment --COVID-19 virus infection Taper off steroids Continue isolation -- Seizure Continue keppra 500 mg twice daily Depakote 750mg BID MRI of the brain without contrast performed-acute changes not found Awaiting EEG Neurology recs appreciated ---Atrial fibrillation with RVR On metoprolol and amiodarone On eliquis Cardiology following -- Urinary tract infection Antibiotics completed --Accelerated hypertension Continue current blood pressure medications-losartan and Coreg -- End-stage renal disease on hemodialysis Hemodialysis as scheduled --Oropharyngeal dysphagia --Diabetes mellitus Lantus and lispro --Vascular dementia Stable ---DVT prophylaxis SCD to bilateral lower extremities while in bed Heparin drip Hospital course Neurology was consulted for seizure episode. MRI brain and EEG advised. COVID- 19 test positive. Patient started on dexamethasone. ID consulted. Patient also on antibiotics for UTI. 10/05. Patients mental status has improved. MRI brain performed showed no acute abnormalities [this was done without contrast as patient has ESRD]. Overnight, patient had A. fib with RVR with rates in the 100-120s. Cardiology has been consulted. Beta-jason dose has been adjusted. Patient started on heparin drip 10/06. Heart rate up to 120's. Patient may need to be started on Cardizem drip however blood pressure is soft. Cardiology will consider amiodarone if not improving. Awaiting cardiology evaluation. She denies any chest pain or palpitations this morning. Afebrile overnight. 10/07. Coreg switched to metoprolol by cardiology. Heparin switched to eliquis. Started on amiodarone drip but as patient could not be transferred to CCU/IMCU due to unavailable beds, she was switched to PO amiodarone by cardiology. 10/08. HR still elevated. BP soft today (normal saline bolus ordered. Started on midodrine for now. Had hypoglycemia overnight. Lantus reduced by 50%. Labs ordered. 10/09. Patient heart rate remains elevated. Consider transferring to [facility] and starting amiodarone drip. We will discuss with cardiology. Patient not taking p.o. therefore we will start Keppra IV. 10/10. Amiodarone drip held per nursing secondary to bradycardia. Continue anticoagulation with heparin drip. Hemodialysis on hold per nephrology given hemodynamic instability. Resume hemodialysis in a.m. if stable. 10/11. Repeat echocardiogram when patient clinically stable. Patient currently rate controlled on metoprolol 25 mg twice daily. Continue low-dose Eliquis. Check HIT panel. Continue Lantus and sliding scale insulin. Continue AEDs and seizure precautions. Continue midodrine 10/12. HIT panel order given thrombocytopenia. Continue Eliquis for now. Repeat echocardiogram per cardiology. 10/13. Follow-up HIT panel. Continue Eliquis. Rate controlled with metoprolol 25 mg twice daily. Continue midodrine for hypotension. Continue Keppra and valproic acid for seizure disorder. Patient with no new seizure activity. Follow-up EEG. Consider transfer to third floor with telemetry. Speech therapy reports that the patient's swallowing function has declined. The patient is unable to effectively manage her secretions in addition to bolus holding and a swallow reflex delay. Recommendations are for n.p.o. DHT placed and dietitian to start tube feedings. 10/14. Follow-up HIT panel. Continue Eliquis. Rate controlled with metoprolol 25 mg twice daily. Continue midodrine for hypotension. Continue Keppra and valproic acid for seizure disorder. Patient with no new seizure activity. Follow-up EEG. Speech therapy recommends n.p.o. status. Nutritional support via DHT and aspiration precautions. History Interval history: 80 YO Female with HTN, DM, Seizure Disorder, HLD, Diastolic CHF, ESRD on HD(M,W,F), Vascular Dementia, Cerebral Atherosclerosis presents to emergency room after she was noted to have seizure-like activity after being discharged from [facility]. Patient was discharged on Depakote and Keppra. In the ER here, she was found to have metabolic encephalopathy, UTI, accelerated hypertension and pneumonia on chest x-ray. She was initiated on Pneumonia protocol and then admitted to the hospital. No new issues overnight. Patient unable to take p.o. Hospitalist Physical - Constitutional Vitals: Temp Pulse Resp BP Pulse Ox 97.9 F 77 25 H 92/33 100 10/14/20 08:00 10/14/20 10:55 10/14/20 10:01 10/14/20 10:55 10/14/20 10:01 General appearance: Present: other (Altered mental status) - EENT Eyes: Present: PERRL, EOM intact ENT: hearing intact, clear oral mucosa, dentition normal - Neck Neck: Present: supple, normal ROM - Respiratory Respiratory effort: normal Respiratory: bilateral: CTA - Cardiovascular Rhythm: regular Heart Sounds: Present: S1 & S2. Absent: gallop, rub - Extremities Extremities: no ischemia, No edema, Full ROM - Abdominal General gastrointestinal: soft, non-tender, non-distended, normal bowel sounds - Integumentary Integumentary: Present: clear, warm, dry - Neurologic Neurologic: CNII-XII intact, moves all extremities Results - Labs CBC & Chem 7: 10/13/20 04:43 10/13/20 04:43 Labs: Laboratory Last Values WBC 5.6 K/mm3 (4.5-11.0) 10/13/20 04:43 RBC 3.01 M/mm3 (3.65-5.03) L 10/13/20 04:43 Hgb 9.4 gm/dl (10.1-14.3) L 10/13/20 04:43 Hgb Comment See scanned results 10/06/20 05:56 Hct 29.0 % (30.3-42.9) L 10/13/20 04:43 MCV 96 fl (79-97) 10/13/20 04:43 MCH 31 pg (28-32) 10/13/20 04:43 MCHC 33 % (30-34) 10/13/20 04:43 RDW 18.3 % (13.2-15.2) H 10/13/20 04:43 Plt Count 44 K/mm3 (140-440) L 10/13/20 04:43 Lymph % (Auto) 8.3 % (13.4-35.0) L 10/09/20 03:00 Randall % (Auto) 4.8 % (0.0-7.3) 10/09/20 03:00 Eos % (Auto) 0.8 % (0.0-4.3) 10/09/20 03:00 Baso % (Auto) 0.7 % (0.0-1.8) 10/09/20 03:00 Lymph # (Auto) 0.2 K/mm3 (1.2-5.4) L 10/09/20 03:00 Randall # (Auto) 0.1 K/mm3 (0.0-0.8) 10/09/20 03:00 Eos # (Auto) 0.0 K/mm3 (0.0-0.4) 10/09/20 03:00 Baso # (Auto) 0.0 K/mm3 (0.0-0.1) 10/09/20 03:00 Add Manual Diff Complete 10/13/20 04:43 Total Counted 100 10/13/20 04:43 Seg Neutrophils % Validation Intern 10/13/20 04:43 Seg Neuts % (Manual) 94.0 % (40.0-70.0) H 10/13/20 04:43 Band Neutrophils % 1.0 % 10/13/20 04:43 Lymphocytes % (Manual) 3.0 % (13.4-35.0) L 10/13/20 04:43 Monocytes % (Manual) 1.0 % (0.0-7.3) 10/13/20 04:43 Metamyelocytes % 1.0 % 10/13/20 04:43 Nucleated RBC % Not Reportable 10/13/20 04:43 Seg Neutrophils # 2.5 K/mm3 (1.8-7.7) 10/09/20 03:00 Seg Neutrophils # Man 5.3 K/mm3 (1.8-7.7) 10/13/20 04:43 Band Neutrophils # 0.1 K/mm3 10/13/20 04:43 Lymphocytes # (Manual) 0.2 K/mm3 (1.2-5.4) L 10/13/20 04:43 Abs React Lymphs (Man) 0.0 K/mm3 10/13/20 04:43 Monocytes # (Manual) 0.1 K/mm3 (0.0-0.8) 10/13/20 04:43 Eosinophils # (Manual) 0.0 K/mm3 (0.0-0.4) 10/13/20 04:43 Basophils # (Manual) 0.0 K/mm3 (0.0-0.1) 10/13/20 04:43 Metamyelocytes # 0.1 K/mm3 10/13/20 04:43 Myelocytes # 0.0 K/mm3 10/13/20 04:43 Promyelocytes # 0.0 K/mm3 10/13/20 04:43 Blast Cells # 0.0 K/mm3 10/13/20 04:43 WBC Morphology Not Reportable 10/13/20 04:43 Hypersegmented Neuts Not Reportable 10/13/20 04:43 Hyposegmented Neuts Not Reportable 10/13/20 04:43 Hypogranular Neuts Not Reportable 10/13/20 04:43 Smudge Cells Not Reportable 10/13/20 04:43 Toxic Granulation Not Reportable 10/13/20 04:43 Toxic Vacuolation Not Reportable 10/13/20 04:43 Dohle Bodies Not Reportable 10/13/20 04:43 Pelger-Huet Anomaly Not Reportable 10/13/20 04:43 Richard Rods Not Reportable 10/13/20 04:43 Platelet Estimate Consistent w auto 10/13/20 04:43 Clumped Platelets Not Reportable 10/13/20 04:43 Plt Clumps, EDTA Not Reportable 10/13/20 04:43 Large Platelets Not Reportable 10/13/20 04:43 Giant Platelets Not Reportable 10/13/20 04:43 Platelet Satelliting Not Reportable 10/13/20 04:43 Plt Morphology Comment Not Reportable 10/13/20 04:43 RBC Morphology Not Reportable 10/13/20 04:43 Dimorphic RBCs Not Reportable 10/13/20 04:43 Polychromasia Not Reportable 10/13/20 04:43 Hypochromasia Not Reportable 10/13/20 04:43 Poikilocytosis 1+ 10/13/20 04:43 Anisocytosis 1+ 10/13/20 04:43 Microcytosis Not Reportable 10/13/20 04:43 Macrocytosis Not Reportable 10/13/20 04:43 Spherocytes Not Reportable 10/13/20 04:43 Pappenheimer Bodies Not Reportable 10/13/20 04:43 Sickle Cells Not Reportable 10/13/20 04:43 Target Cells Few 10/13/20 04:43 Tear Drop Cells Few 10/13/20 04:43 Ovalocytes Few 10/13/20 04:43 Helmet Cells Not Reportable 10/13/20 04:43 Cavazos-[place] Bodies Not Reportable 10/13/20 04:43 Tennyson Rings Not Reportable 10/13/20 04:43 [place] Cells 1+ 10/13/20 04:43 Bite Cells Not Reportable 10/13/20 04:43 Crenated Cell Not Reportable 10/13/20 04:43 Elliptocytes Not Reportable 10/13/20 04:43 Acanthocytes (Spur) Not Reportable 10/13/20 04:43 Rouleaux Not Reportable 10/13/20 04:43 Hemoglobin C Crystals Not Reportable 10/13/20 04:43 Schistocytes Not Reportable 10/13/20 04:43 Malaria parasites Not Reportable 10/13/20 04:43 Sickle Cell Solubility See scanned results 10/06/20 05:56 Hemoglobin A See scanned results 10/06/20 05:56 Hemoglobin A2 See scanned results 10/06/20 05:56 Hemoglobin A2 Prime See scanned results 10/06/20 05:56 Hemoglobin C See scanned results 10/06/20 05:56 Hemoglobin D See scanned results 10/06/20 05:56 Hemoglobin E See scanned results 10/06/20 05:56 Hgb F Diffential Stain See scanned results 10/06/20 05:56 Hemoglobin F Quant See scanned results 10/06/20 05:56 Hemoglobin G See scanned results 10/06/20 05:56 Hemoglobin S See scanned results 10/06/20 05:56 Hemoglobin [place] See scanned results 10/06/20 05:56 Hemoglobin [place] See scanned results 10/06/20 05:56 Hemoglobin Isak See scanned results 10/06/20 05:56 Variant Hemoglobin See scanned results 10/06/20 05:56 Abnorm Hgb IEF Confirm See scanned results 10/06/20 05:56 Hemoglobin Interpret See scanned results 10/06/20 05:56 Hemoglobinopathy Note See scanned results 10/06/20 05:56 Cristofer Bodies Not Reportable 10/13/20 04:43 Hem Pathologist Commnt No 10/13/20 04:43 PT 13.4 Sec. (12.2-14.9) 10/05/20 20:39 INR 1.04 (0.87-1.13) 10/05/20 20:39 APTT 37.6 Sec. (24.2-36.6) H 10/05/20 20:39 D-Dimer 1609.74 ng/mlDDU (0-234) H 10/01/20 16:16 Heparin Anti-Xa Level 0.18 U.I./ml (0.3-0.7) L 10/06/20 05:56 ABG pH 7.435 (7.320-7.450) 10/14/20 01:14 POC ABG pCO2 41.6 mmHg (32.0-48.0) 10/14/20 01:14 POC ABG pO2 73.3 mmHg (83-108) L 10/14/20 01:14 POC ABG HCO3 27.3 10/14/20 01:14 POC ABG Base Excess 2.8 10/14/20 01:14 ABG Hemoglobin 9.8 (12.0-17.5) L 10/14/20 01:14 ABG Oxyhemoglobin 92.7 (94-98) L 10/14/20 01:14 ABG Methemoglobin 0.3 (0.0-1.5) 10/14/20 01:14 ABG Sodium 134.7 mmol/L (136.0-145.0) L 10/14/20 01:14 ABG Potassium 3.0 mmol/L (3.40-4.50) L 10/14/20 01:14 ABG Chloride 100.0 mmol/L (98-107) 10/14/20 01:14 ABG Glucose 148 mg/dL (65-95) H 10/14/20 01:14 Carboxyhemoglobin 1.1 (0.5-1.5) 10/14/20 01:14 FiO2 100 10/14/20 01:14 Sodium 137 mmol/L (137-145) 10/13/20 04:43 Potassium 3.5 mmol/L (3.6-5.0) L 10/13/20 04:43 Chloride 96.8 mmol/L (98-107) L 10/13/20 04:43 Carbon Dioxide 27 mmol/L (22-30) 10/13/20 04:43 Anion Gap 17 mmol/L 10/13/20 04:43 BUN 37 mg/dL (7-17) H 10/13/20 04:43 Creatinine 4.1 mg/dL (0.6-1.2) H 10/13/20 04:43 Estimated GFR 13 ml/min 10/13/20 04:43 BUN/Creatinine Ratio 9 % 10/13/20 04:43 Glucose 130 mg/dL (65-100) H 10/13/20 04:43 POC Glucose 144 mg/dL (70-105) H 10/14/20 07:23 Lactic Acid 1.10 mmol/L (0.7-2.0) 10/01/20 16:16 Calcium 8.0 mg/dL (8.4-10.2) L 10/13/20 04:43 Ferritin 1926.0 ng/mL (10.0-200.0) H 10/03/20 09:30 Total Bilirubin 0.30 mg/dL (0.1-1.2) 10/09/20 03:00 AST 31 units/L (5-40) 10/09/20 03:00 ALT 9 units/L (7-56) 10/09/20 03:00 Alkaline Phosphatase 38 units/L (35-129) 10/09/20 03:00 Ammonia 20.0 umol/L (25-60) L 10/01/20 11:39 Lactate Dehydrogenase 241 units/L (91-180) H 10/03/20 09:30 Total Creatine Kinase 54 units/L (30-135) 10/01/20 11:39 C-Reactive Protein 2.70 mg/dL (0.00-1.30) H 10/03/20 09:30 Serum Total Protein 5.6 g/dL (6.1-8.1) L 10/06/20 05:56 Total Protein 4.7 g/dL (6.3-8.2) L 10/09/20 03:00 Albumin 2.3 g/dL (3.9-5) L 10/09/20 03:00 Albumin/Globulin Ratio 1.0 % 10/09/20 03:00 Zcfie-1-Imyrtmigl 0.3 g/dL (0.2-0.3) 10/06/20 05:56 Vhepw-8-Kkfxhvfop 0.7 g/dL (0.5-0.9) 10/06/20 05:56 Beta Globulins 0.4 g/dL (0.2-0.5) 10/06/20 05:56 Gamma Globulins 1.5 g/dL (0.8-1.7) 10/06/20 05:56 Abnorm Protein Band 1 see below 10/06/20 05:56 PEP Interpretation see below H 10/06/20 05:56 Procalcitonin 0.52 ng/mL (<0.15) 10/03/20 09:30 TSH 6.100 mlU/mL (0.270-4.200) H 10/01/20 11:39 Free T4 1.40 ng/dL (0.76-1.46) 10/03/20 09:30 Arterial Blood Glucose 148 mg/dL (65-95) H 10/14/20 01:14 Arterial Blood Ionized Calcium 4.7 mg/dL (4.6-5.3) 10/14/20 01:14 Urine Color [place] (Yellow) 10/01/20 13:15 Urine Turbidity Cloudy (Clear) 10/01/20 13:15 Urine pH 7.0 (5.0-7.0) 10/01/20 13:15 Ur Specific [place] 1.012 (1.003-1.030) 10/01/20 13:15 Urine Protein >500 mg/dL (Negative) 10/01/20 13:15 Urine Glucose (UA) Neg mg/dL (Negative) 10/01/20 13:15 Urine Ketones Neg mg/dL (Negative) 10/01/20 13:15 Urine Blood Sm (Negative) 10/01/20 13:15 Urine Nitrite Neg (Negative) 10/01/20 13:15 Urine Bilirubin Neg (Negative) 10/01/20 13:15 Urine Urobilinogen < 2.0 mg/dL (<2.0) 10/01/20 13:15 Ur Leukocyte Esterase Lg (Negative) 10/01/20 13:15 Urine WBC (Auto) > 182.0 /HPF (0.0-6.0) H 10/01/20 13:15 Urine RBC (Auto) 18.0 /HPF (0.0-6.0) 10/01/20 13:15 U Epithel Cells (Auto) 4.0 /HPF (0-13.0) 10/01/20 13:15 Urine Bacteria (Auto) 1+ /HPF (Negative) 10/01/20 13:15 Urine WBC Clumps 2+ /HPF 10/01/20 13:15 Urine Mucus Few /HPF 10/01/20 13:15 Random Vancomycin 7.6 ug/mL (0-40.0) 10/03/20 09:30 Salicylates < 0.3 mg/dL (2.8-20.0) L 10/01/20 11:39 Urine Opiates Screen Negative 10/01/20 13:15 Urine Methadone Screen Negative 10/01/20 13:15 Acetaminophen 5.0 ug/mL (10.0-30.0) L 10/01/20 11:39 Ur Barbiturates Screen Negative 10/01/20 13:15 Ur Phencyclidine Scrn Negative 10/01/20 13:15 Ur Amphetamines Screen Negative 10/01/20 13:15 U Benzodiazepines Scrn Negative 10/01/20 13:15 Urine Cocaine Screen Negative 10/01/20 13:15 U Marijuana (THC) Screen Negative 10/01/20 13:15 Drugs of Abuse Note Disclamer 10/01/20 13:15 Coronavirus (PCR) Positive (Negative) A 10/02/20 Unknown Barrientos/IV: Voiding Method Incontinent IV Catheter Type [right chest] PICC Line IV Catheter Type [Right INT / Saline Lock Forearm] IV Catheter Type [Left Upper dialysis access arm] Active Medications - Current Medications Current Medications: Generic Name Dose Route Start Last Admin Trade Name Freq PRN Reason Stop Dose Admin Acetaminophen 650 mg 10/01/20 15:50 10/12/20 22:55 Acetaminophen 325 Mg Tab PO 650 mg Q4H PRN Administration Pain MILD(1-3)/Fever >100.5/VERDE Albuterol 2.5 mg 10/01/20 15:50 Albuterol 2.5 Mg/3 Ml Nebu IH Q4HRT PRN Shortness Of Breath Lipase/Protease/Amylase 1 each 10/13/20 09:00 Lipase 10,500/Protease 25,000/Amylase 43,750 (Units) Dr Pickering FEEDTUBE PRN PRN For Clogged Feeding Tube Apixaban 2.5 mg 10/06/20 22:00 10/14/20 10:56 Apixaban 2.5 Mg Tab PO 2.5 mg Q12HR BUTCH Administration Protocol Aspirin 81 mg 10/01/20 17:00 10/14/20 10:54 Aspirin 81 Mg Tab Chew PO 81 mg QDAY BUTCH Administration Atorvastatin Calcium 20 mg 10/06/20 22:00 10/13/20 22:04 Atorvastatin 20 Mg Tab PO 20 mg QHS BUTCH Administration Dextrose 50 ml 10/01/20 15:54 10/11/20 12:25 Dextrose 50% In Water (25gm) 50 Ml Syringe IV 15 ml Q30MIN PRN Administration Hypoglycemia Protocol Epoetin Jagjit 10,000 unit 10/02/20 09:19 10/11/20 15:45 Epoetin Jagjit 10,000 Unit/1 Ml Inj IV 10,000 unit ALANA PRN Administration hemodialysis Famotidine 20 mg 10/02/20 10:00 10/14/20 10:54 Famotidine 20 Mg Tab PO 20 mg DAILY BUTCH Administration Sodium Chloride 100 mls @ 999 mls/hr 10/02/20 09:19 Nacl 0.9% IV ALANA PRN Hypotension Levetiracetam 500 mg/ Dextrose 105 mls @ 400 mls/hr 10/09/20 10:00 10/14/20 10:54 IV 10/14/20 12:00 400 mls/hr Q12HR BUTCH Administration Sodium Chloride 1,000 mls @ 75 mls/hr 10/09/20 11:45 10/10/20 19:24 Nacl 0.9% 1000 Ml IV 75 mls/hr DIRECT BUTCH Administration Insulin Human Lispro 0 unit 10/14/20 00:00 10/14/20 05:42 Insulin Lispro 100 Unit/Ml SUB-Q Not Given Q6HR [facility] Protocol Levetiracetam 500 mg 10/14/20 22:00 Levetiracetam 500 Mg/5 Ml Oral Liqd PO BID [facility] Megestrol Acetate 400 mg 10/02/20 10:00 10/14/20 10:54 Megestrol 400 Mg/10 Ml Oral Liqd PO 400 mg QDAY BUTCH Administration Metoprolol Tartrate 25 mg 10/11/20 22:00 10/14/20 10:55 Metoprolol Tartrate 25 Mg Tab PO Not Given BID [facility] Midodrine 5 mg 10/08/20 12:00 10/14/20 10:56 Midodrine 5 Mg Tab PO 5 mg TID@0800,1200,1600 BUTCH Administration Ondansetron HCl 4 mg 10/01/20 15:50 Ondansetron 4 Mg/2 Ml Inj IV Q8H PRN Nausea And Vomiting Simple Syrup 15 ml 10/13/20 09:00 Simple Syrup 15 Ml FEEDTUBE PRN PRN Hypoglycemia Simple Syrup 30 ml 10/13/20 09:00 Simple Syrup 15 Ml FEEDTUBE PRN PRN Hypoglycemia Sodium Bicarbonate 325 mg 10/13/20 09:00 Sodium Bicarbonate 325 Mg Tab FEEDTUBE PRN PRN For Clogged Feeding Tube Sodium Chloride 10 ml 10/01/20 22:00 10/14/20 10:56 Sodium Chloride 0.9% 10 Ml Flush Syringe IV 10 ml BID BUTCH Administration Sodium Chloride 10 ml 10/01/20 15:50 10/02/20 09:48 Sodium Chloride 0.9% 10 Ml Flush Syringe IV 10 ml PRN PRN Administration LINE FLUSH Valproic Acid 500 mg 10/04/20 23:45 10/14/20 05:47 Valproic Acid 250 Mg/5 Ml Oral Liqd PO 500 mg Q8HR BUTCH Administration Nutrition/Malnutrition Assess - Dietary Evaluation Nutrition/Malnutrition Findings: Nutrition Notes Start: 10/02/20 14:56 Freq: Status: Active Protocol: Document 10/13/20 08:49 LP (Rec: 10/13/20 08:55 LP [id number]) Nutrition Notes Initial or Follow up Reassessment Current Diagnosis CKD (stage V CKD),Coronary Artery Disease,Decubitus( Pressure Ulcer),Diabetes, Hyperlipidemia Other Pertinent Diagnosis COVID-19 (+), Encephalopathy, UTI, GERD, pneu, seizure d/o Current Diet NPO Labs/Tests K 3.5 BUN 37 Cr 4.1 BG 130 Pertinent Medications Reviewed Height 5 ft 5 in Weight 63 kg [place] Body Weight (kg) 56.81 BMI 23.1 Weight Status Appropriate Subjective/Other Information Consult for TF. Pt failed PSYCHIATRIST evaluation. Burn Absent Trauma Absent GI Symptoms None Difficulty In Swallowing,Chewing Food Allergy No Current % PO Negligible Minimum of two criteria No Reduced Seed Cleaning Manager Strength Measurably Reduced (severe) #3 Nutrition Diagnosis Increased nutrient needs ( specify in comment below) Diagnosis Progress(for reassessment Continues documentation) #2 Nutrition Diagnosis Inadequate oral intake Diagnosis Progress(for reassessment Continues documentation) Is patient on ventilator? No Is Patient Ambulatory and/or Out of Bed No REE-([facility]-confined to bed) 1322.076 Calculation Used for Recommendations [facility] Additional Notes Protein: >75 g (>1.2 g/kg) Fluid: 1,000-1,500ml or per MD order Nutrition Intervention Change Diet Order: TF Nutrition Support: Glucerna 1.2 at 50ml/hr. Flush with 80ml q4h Kcal 1,440 Protein (gm) 72 Fluid (mL) 966 Add Supplement/Snack (indicate name/kcal D/C /protein ) Goal #1 Meet at least 80% of kcal and protein needs via TF Goal #2 Wt gain/ maintenance Goal #3 Wound healing Anticipated Discharge Needs: Unable to determine at this time Follow-Up By: 10/15/20 Additional Comments Follow for TF start and tolerance
[2020-10-14 13:47] LABS: Basophils # (Auto) 0.1 K/mm3 (0.0-0.1); Basophils % (Auto) 1.7 % (0.0-1.8); Eosinophils % (Auto) 0.1 % (0.0-4.3); Hematocrit 26.1 % (30.3-42.9); Hemoglobin 8.4 gm/dl (10.1-14.3); Lymphocytes # (Auto) 0.3 K/mm3 (1.2-5.4); Lymphocytes % (Auto) 5.4 % (13.4-35.0); Mean Corpuscular HGB Conc 32 % (30-34); Mean Corpuscular Volume 97 fl (79-97); Monocytes # (Auto) 0.2 K/mm3 (0.0-0.8); Red Cell Distribution Width 18.4 % (13.2-15.2)
[2020-10-14 13:49] LABS: Platelet Count 25 K/mm3 (140-440)
--- NOTE | 2020-10-14 20:07 | Progress Note ---
Assessment and Plan # End stage renal disease: continue maintenance hemodialysis // or prn moving forward, had yesterday, next HD 10/16 unless indicated earlier - daily renal labs - avoid nephrotoxins - renally dose meds - renal diet # Hypertension: BP stable, is off losartan. UF only as tolerated # Atrial fibrillation with rapid ventricular response: appreciate cardiology # Anemia: current hemoglobin is around 10 # Thrombocytopenia: HIT panel pending # Bone mineral disorder and secondary hyperparathyroidism: continue binders with meals # Diabetes mellitus type 2 # Covid 19 pneumonia, altered mental status Subjective Date of service: 10/14/20 Principal diagnosis: COVID-19 PNA, AF with RVR Interval history: Remains thrombocytopenic. No other major changes. Had HD yesterday,tolerated reasonably well Objective - Exam Narrative Exam: Direct examination not done due to COVID-19, need to limit PPE. Reviewed examination of primary team, patient was seen through ICU window - Vital Signs Vital signs: Vital Signs - 12hr 10/14/20 10/14/20 10/14/20 09:01 09:05 09:12 Temperature Pulse Rate 79 78 Respiratory 25 H 24 Rate Blood Pressure 118/46 117/36 O2 Sat by Pulse 100 100 100 Oximetry 10/14/20 10/14/20 10/14/20 10:01 10:55 11:00 Temperature Pulse Rate 83 77 77 Respiratory 25 H 22 Rate Blood Pressure 114/44 92/33 94/36 O2 Sat by Pulse 100 100 Oximetry 10/14/20 10/14/20 10/14/20 12:00 13:01 14:00 Temperature 97.9 F Pulse Rate 63 65 61 Respiratory 23 18 15 Rate Blood Pressure 124/51 124/51 140/38 O2 Sat by Pulse 96 99 100 Oximetry 10/14/20 10/14/20 10/14/20 15:00 16:00 17:01 Temperature 98.0 F Pulse Rate 60 58 L 64 Respiratory 19 16 15 Rate Blood Pressure 108/37 112/39 117/37 O2 Sat by Pulse 100 100 100 Oximetry 10/14/20 10/14/20 10/14/20 18:01 19:01 19:20 Temperature Pulse Rate 79 76 73 Respiratory 16 24 22 Rate Blood Pressure 96/64 117/91 117/91 O2 Sat by Pulse 100 100 100 Oximetry - Lab 10/14/20 12:45 10/13/20 04:43 Most recent lab results ABG pH 7.435 (7.320-7.450) 10/14/20 01:14 Calcium 8.0 mg/dL (8.4-10.2) L 10/13/20 04:43 Medications & Allergies - Medications Allergies/Adverse Reactions: Allergies No Known Allergies Allergy (Unverified 02/02/18 15:43) Home Medications: Home Medications Medication Instructions Recorded Confirmed Last Taken Type Aspirin 81 mg PO DAILY 08/13/18 10/06/20 08/11/18 History Acetaminophen [Acetaminophen TAB] 650 mg PO Q4H PRN tablet 09/02/18 10/06/20 Unknown Rx Lispro Insulin [HumaLOG] 0 unit SUB-Q ACHS units 09/02/18 10/06/20 Unknown Rx ISOSORBIDE MONOnitrate [Imdur ER] 60 mg PO DAILY tablet 10/15/18 10/06/20 Unknown Rx carvediloL [Coreg] 12.5 mg PO BID tablet 10/15/18 10/06/20 Unknown Rx Losartan [Cozaar] 50 mg PO QDAY #30 tablet 11/01/18 10/06/20 Unknown Rx Lacosamide [Vimpat] 50 mg PO Q12HR #60 tablet 08/22/19 10/06/20 Unknown Rx Linagliptin [Tradjenta] 5 mg PO QDDIAB #30 tablet 08/22/19 10/06/20 Unknown Rx levETIRAcetam [Keppra TAB] 500 mg PO BID #60 tablet 08/22/19 10/06/20 Unknown Rx Famotidine [Pepcid] 20 mg PO DAILY #30 tablet 08/07/20 10/06/20 Unknown Rx NIFEdipine XL [Procardia Xl] 60 mg PO Q12HR #60 tablet 08/07/20 10/06/20 Unknown Rx hydrALAZINE [Apresoline TAB] 100 mg PO Q8HR #90 tab 08/07/20 10/06/20 Unknown Rx megestroL [Megestrol] 400 mg PO QDAY 30 Days #1 oral.liqd 08/07/20 10/06/20 Unknown Rx Active Medications: Generic Name Dose Route Start Last Admin Trade Name Freq PRN Reason Stop Dose Admin Acetaminophen 650 mg 10/01/20 15:50 10/12/20 22:55 Acetaminophen 325 Mg Tab PO 650 mg Q4H PRN Administration Pain MILD(1-3)/Fever >100.5/VERDE Albuterol 2.5 mg 10/01/20 15:50 Albuterol 2.5 Mg/3 Ml Nebu IH Q4HRT PRN Shortness Of Breath Lipase/Protease/Amylase 1 each 10/13/20 09:00 Lipase 10,500/Protease 25,000/Amylase 43,750 (Units) Dr Pickering FEEDTUBE PRN PRN For Clogged Feeding Tube Apixaban 2.5 mg 10/06/20 22:00 10/14/20 10:56 Apixaban 2.5 Mg Tab PO 2.5 mg Q12HR BUTCH Administration Protocol Aspirin 81 mg 10/01/20 17:00 10/14/20 10:54 Aspirin 81 Mg Tab Chew PO 81 mg QDAY BUTCH Administration Atorvastatin Calcium 20 mg 10/06/20 22:00 10/13/20 22:04 Atorvastatin 20 Mg Tab PO 20 mg QHS BUTCH Administration Dextrose 50 ml 10/01/20 15:54 10/11/20 12:25 Dextrose 50% In Water (25gm) 50 Ml Syringe IV 15 ml Q30MIN PRN Administration Hypoglycemia Protocol Epoetin Jagjit 10,000 unit 10/02/20 09:19 10/11/20 15:45 Epoetin Jagjit 10,000 Unit/1 Ml Inj IV 10,000 unit ALANA PRN Administration hemodialysis Famotidine 20 mg 10/02/20 10:00 10/14/20 10:54 Famotidine 20 Mg Tab PO 20 mg DAILY BUTCH Administration Sodium Chloride 100 mls @ 999 mls/hr 10/02/20 09:19 Nacl 0.9% IV ALANA PRN Hypotension Sodium Chloride 1,000 mls @ 75 mls/hr 10/09/20 11:45 10/10/20 19:24 Nacl 0.9% 1000 Ml IV 75 mls/hr DIRECT BUTCH Administration Insulin Human Lispro 0 unit 10/14/20 00:00 10/14/20 17:12 Insulin Lispro 100 Unit/Ml SUB-Q 3 unit Q6HR BUTCH Administration Protocol Levetiracetam 500 mg 10/14/20 22:00 Levetiracetam 500 Mg/5 Ml Oral Liqd PO BID [facility] Megestrol Acetate 400 mg 10/02/20 10:00 10/14/20 10:54 Megestrol 400 Mg/10 Ml Oral Liqd PO 400 mg QDAY BUTCH Administration Metoprolol Tartrate 25 mg 10/11/20 22:00 10/14/20 10:55 Metoprolol Tartrate 25 Mg Tab PO Not Given BID BUTCH Midodrine 5 mg 10/08/20 12:00 10/14/20 17:15 Midodrine 5 Mg Tab PO 5 mg TID@0800,1200,1600 BUTCH Administration Ondansetron HCl 4 mg 10/01/20 15:50 Ondansetron 4 Mg/2 Ml Inj IV Q8H PRN Nausea And Vomiting Simple Syrup 15 ml 10/13/20 09:00 Simple Syrup 15 Ml FEEDTUBE PRN PRN Hypoglycemia Simple Syrup 30 ml 10/13/20 09:00 Simple Syrup 15 Ml FEEDTUBE PRN PRN Hypoglycemia Sodium Bicarbonate 325 mg 10/13/20 09:00 Sodium Bicarbonate 325 Mg Tab FEEDTUBE PRN PRN For Clogged Feeding Tube Sodium Chloride 10 ml 10/01/20 22:00 10/14/20 10:56 Sodium Chloride 0.9% 10 Ml Flush Syringe IV 10 ml BID BUCTH Administration Sodium Chloride 10 ml 10/01/20 15:50 10/02/20 09:48 Sodium Chloride 0.9% 10 Ml Flush Syringe IV 10 ml PRN PRN Administration LINE FLUSH Valproic Acid 500 mg 10/04/20 23:45 10/14/20 14:19 Valproic Acid 250 Mg/5 Ml Oral Liqd PO 500 mg Q8HR BUTCH Administration
[2020-10-14] MEDS: levETIRAcetam 500 MG/5 ML ORAL LIQD PO SCH (22:11)
[2020-10-15 05:29] LABS: Basophils % (Auto) 0.3 % (0.0-1.8); Eosinophils % (Auto) 0.1 % (0.0-4.3); Hematocrit 26.9 % (30.3-42.9); Hemoglobin 8.8 gm/dl (10.1-14.3); Lymphocytes # (Auto) 0.3 K/mm3 (1.2-5.4); Lymphocytes % (Auto) 5.5 % (13.4-35.0); Mean Corpuscular HGB Conc 33 % (30-34); Mean Corpuscular Volume 95 fl (79-97); Monocytes # (Auto) 0.2 K/mm3 (0.0-0.8); Monocytes % (Auto) 4.4 % (0.0-7.3); Red Blood Count 2.83 M/mm3 (3.65-5.03); Red Cell Distribution Width 18.2 % (13.2-15.2)
[2020-10-15 05:52] LABS: Platelet Count 26 K/mm3 (140-440)
[2020-10-15] MEDS: VALPROIC ACID 250 MG/5 ML ORAL LIQD PO SCH ×3 (06:11→21:29)
[2020-10-15] MEDS: INSULIN LISPRO 100 UNIT/ML SUB-Q SCH ×4 (06:11→18:03)
[2020-10-15 06:19] LABS: Calcium 8.4 mg/dL (8.4-10.2)
[2020-10-15] MEDS ORDERED: POTASSIUM CHLORIDE 20 MEQ PACKET FEEDTUBE ONE (09:00)
--- NOTE | 2020-10-15 09:20 | Progress Note ---
Assessment and Plan Assessment: * End stage renal disease on HD * Acute hypoxic respiratory failure secondary to PNA * COVID 19 PNA * Atrial fibrillation with RVR * Hypokalemia * Anemia secondary to ESRD Plan: * Continue hemodialysis TTS - UF as tolerated;no acute indication for HD today * Rate control/anticoagulation per primary team * Replete lytes prn - note KCl 40meq given this AM * Dose medications for renal function * Avoid potential nephrotoxins * AM labs Subjective Date of service: 10/15/20 Principal diagnosis: COVID-19 PNA, AF with RVR Interval history: Patient transitioned from BiPAP to venti mask this AM. O2 sat 86% at time of visit. RN plans to return patient to BiPAP. No acute events overnight. Objective - Vital Signs Vital signs: Vital Signs - 12hr 10/14/20 10/14/20 10/14/20 21:31 22:01 22:30 Temperature Pulse Rate 60 61 67 Respiratory 20 21 20 Rate Blood Pressure 108/30 101/32 103/40 O2 Sat by Pulse 98 94 98 Oximetry 10/14/20 10/14/20 10/15/20 23:01 23:30 00:00 Temperature 97.6 F Pulse Rate 66 55 L 68 Respiratory 22 16 26 H Rate Blood Pressure 103/48 102/34 93/54 O2 Sat by Pulse 95 97 97 Oximetry 10/15/20 10/15/20 10/15/20 00:10 00:31 01:01 Temperature Pulse Rate 60 69 64 Respiratory 21 21 16 Rate Blood Pressure 93/54 114/42 O2 Sat by Pulse 100 98 97 Oximetry 10/15/20 10/15/20 10/15/20 01:30 02:01 02:31 Temperature Pulse Rate 67 60 71 Respiratory 20 20 20 Rate Blood Pressure 119/36 119/35 119/35 O2 Sat by Pulse 96 96 96 Oximetry 10/15/20 10/15/20 10/15/20 03:01 03:31 03:44 Temperature Pulse Rate 67 71 70 Respiratory 18 19 22 Rate Blood Pressure 112/46 104/44 104/44 O2 Sat by Pulse 97 95 97 Oximetry 10/15/20 10/15/20 10/15/20 04:00 04:01 04:31 Temperature 97.6 F Pulse Rate 67 71 Respiratory 19 24 Rate Blood Pressure 122/41 O2 Sat by Pulse 97 96 Oximetry 10/15/20 10/15/2010/15/21 05:01 05:31 06:00 Temperature Pulse Rate 68 71 62 Respiratory 20 25 H 20 Rate Blood Pressure 104/46 108/36 O2 Sat by Pulse 98 96 99 Oximetry 10/15/20 10/15/20 10/15/20 06:30 08:00 09:12 Temperature 98.2 F Pulse Rate 63 Respiratory 19 Rate Blood Pressure 102/34 O2 Sat by Pulse 99 96 Oximetry - General Appearance General appearance: frail EENT: ATNC Respiratory: Present: Other (coarse BS) Cardiology: regular, tachycardia Gastrointestinal: normal, no tenderness, no distended Musculoskeletal: other (no edema) Psychiatric: cooperative - Lab 10/15/20 04:28 10/15/20 04:28 Most recent lab results ABG pH 7.435 (7.320-7.450) 10/14/20 01:14 Calcium 8.4 mg/dL (8.4-10.2) 10/15/20 04:28 Medications & Allergies - Medications Allergies/Adverse Reactions: Allergies No Known Allergies Allergy (Unverified 02/02/18 15:43) Home Medications: Home Medications Medication Instructions Recorded Confirmed Last Taken Type Aspirin 81 mg PO DAILY 08/13/18 10/06/20 08/11/18 History Acetaminophen [Acetaminophen TAB] 650 mg PO Q4H PRN tablet 09/02/18 10/06/20 Unknown Rx Lispro Insulin [HumaLOG] 0 unit SUB-Q ACHS units 09/02/18 10/06/20 Unknown Rx ISOSORBIDE MONOnitrate [Imdur ER] 60 mg PO DAILY tablet 10/15/18 10/06/20 Unknown Rx carvediloL [Coreg] 12.5 mg PO BID tablet 10/15/18 10/06/20 Unknown Rx Losartan [Cozaar] 50 mg PO QDAY #30 tablet 11/01/18 10/06/20 Unknown Rx Lacosamide [Vimpat] 50 mg PO Q12HR #60 tablet 08/22/19 10/06/20 Unknown Rx Linagliptin [Tradjenta] 5 mg PO QDDIAB #30 tablet 08/22/19 10/06/20 Unknown Rx levETIRAcetam [Keppra TAB] 500 mg PO BID #60 tablet 08/22/19 10/06/20 Unknown Rx Famotidine [Pepcid] 20 mg PO DAILY #30 tablet 08/07/20 10/06/20 Unknown Rx NIFEdipine XL [Procardia Xl] 60 mg PO Q12HR #60 tablet 08/07/20 10/06/20 Unknown Rx hydrALAZINE [Apresoline TAB] 100 mg PO Q8HR #90 tab 08/07/20 10/06/20 Unknown Rx megestroL [Megestrol] 400 mg PO QDAY 30 Days #1 oral.liqd 08/07/20 10/06/20 Unknown Rx Active Medications: Generic Name Dose Route Start Last Admin Trade Name Freq PRN Reason Stop Dose Admin Acetaminophen 650 mg 10/01/20 15:50 10/12/20 22:55 Acetaminophen 325 Mg Tab PO 650 mg Q4H PRN Administration Pain MILD(1-3)/Fever >100.5/VERDE Albuterol 2.5 mg 10/01/20 15:50 Albuterol 2.5 Mg/3 Ml Nebu IH Q4HRT PRN Shortness Of Breath Lipase/Protease/Amylase 1 each 10/13/20 09:00 Lipase 10,500/Protease 25,000/Amylase 43,750 (Units) Dr Pickering FEEDTUBE PRN PRN For Clogged Feeding Tube Apixaban 2.5 mg 10/06/20 22:00 10/14/20 22:11 Apixaban 2.5 Mg Tab PO 2.5 mg Q12HR BUTCH Administration Protocol Aspirin 81 mg 10/01/20 17:00 10/14/20 10:54 Aspirin 81 Mg Tab Chew PO 81 mg QDAY BUTCH Administration Atorvastatin Calcium 20 mg 10/06/20 22:00 10/14/20 22:11 Atorvastatin 20 Mg Tab PO 20 mg QHS BUTCH Administration Dextrose 50 ml 10/01/20 15:54 10/11/20 12:25 Dextrose 50% In Water (25gm) 50 Ml Syringe IV 15 ml Q30MIN PRN Administration Hypoglycemia Protocol Epoetin Jagjit 10,000 unit 10/02/20 09:19 10/11/20 15:45 Epoetin Jagjit 10,000 Unit/1 Ml Inj IV 10,000 unit ALANA PRN Administration hemodialysis Famotidine 20 mg 10/02/20 10:00 10/14/20 10:54 Famotidine 20 Mg Tab PO 20 mg DAILY BUTCH Administration Sodium Chloride 100 mls @ 999 mls/hr 10/02/20 09:19 Nacl 0.9% IV ALANA PRN Hypotension Sodium Chloride 1,000 mls @ 75 mls/hr 10/09/20 11:45 10/10/20 19:24 Nacl 0.9% 1000 Ml IV 75 mls/hr DIRECT BUTCH Administration Insulin Human Lispro 0 unit 10/14/20 00:00 10/15/20 06:11 Insulin Lispro 100 Unit/Ml SUB-Q 2 unit Q6HR BUTCH Administration Protocol Levetiracetam 500 mg 10/14/20 22:00 10/14/20 22:11 Levetiracetam 500 Mg/5 Ml Oral Liqd PO 500 mg BID BUTCH Administration Megestrol Acetate 400 mg 10/02/20 10:00 10/14/20 10:54 Megestrol 400 Mg/10 Ml Oral Liqd PO 400 mg QDAY BUTCH Administration Metoprolol Tartrate 25 mg 10/11/20 22:00 10/14/20 22:01 Metoprolol Tartrate 25 Mg Tab PO Not Given BID BUTCH Midodrine 5 mg 10/08/20 12:00 10/14/20 17:15 Midodrine 5 Mg Tab PO 5 mg TID@0800,1200,1600 BUTCH Administration Ondansetron HCl 4 mg 10/01/20 15:50 Ondansetron 4 Mg/2 Ml Inj IV Q8H PRN Nausea And Vomiting Simple Syrup 15 ml 10/13/20 09:00 Simple Syrup 15 Ml FEEDTUBE PRN PRN Hypoglycemia Simple Syrup 30 ml 10/13/20 09:00 Simple Syrup 15 Ml FEEDTUBE PRN PRN Hypoglycemia Sodium Bicarbonate 325 mg 10/13/20 09:00 Sodium Bicarbonate 325 Mg Tab FEEDTUBE PRN PRN For Clogged Feeding Tube Sodium Chloride 10 ml 10/01/20 22:00 10/14/20 22:12 Sodium Chloride 0.9% 10 Ml Flush Syringe IV 10 ml BID BUTCH Administration Sodium Chloride 10 ml 10/01/20 15:50 10/02/20 09:48 Sodium Chloride 0.9% 10 Ml Flush Syringe IV 10 ml PRN PRN Administration LINE FLUSH Valproic Acid 500 mg 10/04/20 23:45 10/15/20 06:11 Valproic Acid 250 Mg/5 Ml Oral Liqd PO 500 mg Q8HR BUTCH Administration
[2020-10-15] MEDS: ASPIRIN 81 MG TAB CHEW PO SCH (09:42)
[2020-10-15] MEDS: FAMOTIDINE 20 MG TAB PO SCH (09:42)
[2020-10-15] MEDS: APIXABAN 2.5 MG TAB PO SCH ×2 (09:43→21:29)
[2020-10-15] MEDS: METOPROLOL TARTRATE 25 MG TAB PO SCH ×2 (09:43→21:29)
[2020-10-15] MEDS: MEGESTROL 400 MG/10 ML ORAL LIQD PO SCH (09:43)
[2020-10-15] MEDS: MIDODRINE 5 MG TAB PO SCH ×3 (09:43→18:05)
[2020-10-15] MEDS: levETIRAcetam 500 MG/5 ML ORAL LIQD PO SCH ×2 (09:43→21:29)
--- NOTE | 2020-10-15 09:54 | Progress Note ---
Assessment and Plan Currently stable cardiac status. Cont present cardiac management. Anemia and worsening thrombocytopenia noted, pt is currently receiving low dose Eliquis and did receive several days of IV heparin prior to initiation of Eliquis - consider r/o HIT per primary team. Cont Eliquis unless contraindicated. Obtain echo. Case reviewed in conjunction with Dr. Leia Hope who agrees with the assessment and plan of care. - Patient Problems (1) Pneumonia due to COVID-19 virus Current Visit: Yes Status: Acute (2) Atrial fibrillation with RVR Current Visit: Yes Status: Acute Plan to address problem: apparent new onset - initiated on Eliquis (3) NSVT (nonsustained ventricular tachycardia) Current Visit: Yes Status: Acute (4) Mild aortic stenosis Current Visit: Yes Status: Chronic (5) Severe pulmonary hypertension Current Visit: Yes Status: Chronic (6) End-stage renal disease on hemodialysis Current Visit: Yes Status: Chronic (7) Anemia Current Visit: Yes Status: Chronic Qualifiers: Anemia type: unspecified type Qualified Code(s): D64.9 - Anemia, unspecified (8) Seizure Current Visit: Yes Status: Chronic (9) Elevated TSH Current Visit: Yes Status: Acute Plan to address problem: Mgmt per Primary (10) Hypertension Current Visit: Yes Status: Chronic Qualifiers: Hypertension type: essential hypertension Qualified Code(s): I10 - Essential (primary) hypertension (11) Hyperlipidemia Current Visit: Yes Status: Chronic Qualifiers: Hyperlipidemia type: mixed hyperlipidemia Qualified Code(s): E78.2 - Mixed hyperlipidemia (12) T2DM (type 2 diabetes mellitus) Current Visit: Yes Status: Chronic (13) Vascular dementia Current Visit: Yes Status: Chronic Qualifiers: Dementia behavioral disturbance: without behavioral disturbance Qualified Code(s): F01.50 - Vascular dementia without behavioral disturbance Subjective Date of service: 10/15/20 Principal diagnosis: COVID-19 PNA, AF with RVR Interval history: pt resting in bed, lethargic, NAD. tele reviewed - in SR HR 60s. Objective Last Vital Signs Temp 98.2 F 10/15/20 08:00 Pulse 63 10/15/20 06:30 Resp 19 10/15/20 06:30 BP 102/34 10/15/20 06:30 Pulse Ox 96 10/15/20 09:12 - Physical Examination General: Other (lethargic) Neck: Positive: neck supple, trachea midline. Negative: JVD/HJR, Masses Cardiac: Positive: Reg Rate and Rhythm, S1/S2 Lungs: Positive: Decreased Breath Sounds Neuro: Positive: Other (lethargic ) - Labs and Meds CBC 10/14/20 10/15/20 Range/Units 12:45 04:28 WBC 5.5 5.4 (4.5-11.0) K/mm3 RBC 2.70 L 2.83 L (3.65-5.03) M/mm3 Hgb 8.4 L 8.8 L (10.1-14.3) gm/dl Hct 26.1 L 26.9 L (30.3-42.9) % Plt Count 25 L 26 L (140-440) K/mm3 Lymph # (Auto) 0.3 L 0.3 L (1.2-5.4) K/mm3 [place] # (Auto) 0.2 0.2 (0.0-0.8) K/mm3 Eos # (Auto) 0.0 0.0 (0.0-0.4) K/mm3 Baso # (Auto) 0.1 0.0 (0.0-0.1) K/mm3 Comprehensive Metabolic Panel 10/15/20 Range/Units 04:28 Sodium 139 (137-145) mmol/L Potassium 3.1 L (3.6-5.0) mmol/L Chloride 98.5 (98-107) mmol/L Carbon Dioxide 30 (22-30) mmol/L BUN 31 H (7-17) mg/dL Creatinine 3.7 H (0.6-1.2) mg/dL Glucose 161 H (65-100) mg/dL Calcium 8.4 (8.4-10.2) mg/dL - Imaging and Cardiology EKG: report reviewed, image reviewed Echo: report reviewed (07/2019 LA mod dilated, mild-mod MR, mild-mod TR, mild , mild concentric LVH, EF 65-70%, severe pulm HTN, RVSP 83 mmHg) - EKG Sinus rhythms and dysrhythmias: sinus rhythm
[2020-10-15] MEDS ORDERED: ATROPINE 0.1% (1 MG/10 ML) CARDIAC SYRINGE ONE ×2 (18:22→18:25)
[2020-10-15] MEDS ORDERED: SODIUM BICARB 8.4% 50 MEQ/50 ML SYRINGE IV ONE (18:25)
[2020-10-15] MEDS ORDERED: EPINEPHrine 1 MG/10 ML SYRINGE ONE (18:25)
--- NOTE | 2020-10-15 18:55 | Event Note ---
A cool CODE BLUE was called overhead. I presented to the bedside patient was found in asystolic arrest. Patient treated" with ACLS protocol with return of perfusing cardiac rhythm. Shortly thereafter the patient was found to experience a repeat asystolic arrest. The patient was treated" with ACLS protocol with an eventual return of perfusing cardiac rhythm. The patient was intubated and placed on ventilatory support. 60 minutes bedside critical care time dedicated to patient care. Abdias [phone] was notified, voicemail message left on answering machine. Jose Raul Tee [phone] was also notified regarding patient condition. Voicemail left on his machine.
[2020-10-15] MEDS: NORepinephrine 8 MG in SODIUM CHLORIDE 0.9% 250ML 242 ML IV SCH ×2 (19:26→23:33)
[2020-10-15] MEDS ORDERED: VASOPRESSIN 20 UNIT in SODIUM CHLORIDE 0.9% 100 ML IV SCH (20:00)
[2020-10-15] MEDS ORDERED: PHENYLEPHRINE 100 MG in SODIUM CHLORIDE 0.9% 90 ML IV SCH (22:45)
[2020-10-16 00:09] VITALS: BP 97/39
[2020-10-16] MEDS: INSULIN LISPRO 100 UNIT/ML SUB-Q SCH (00:11)
[2020-10-16] MEDS ORDERED: SODIUM BICARB 8.4% 50 MEQ/50 ML SYRINGE IV ONE (00:40)
--- NOTE | 2020-10-16 01:07 | Event Note ---
Date: 10/16/20 A cool CODE BLUE was called overhead. patient was found in asystolic arrest. Patient was given CPR as per ACLS protocol. 6 AP 4 bicarb and 2 calcium gluconate was given but patient failed to regain pulse and blood pressure. Patient at 12:50 AM on October 16, 2020 due to cardiopulmonary arrest COVID-19 infection. Patient grandson was called but did not picker the phone so we left voice messages Daytime Will dictate the summary
--- NOTE | 2020-10-16 08:38 | Death Summary ---
Summary - Providers Consults: 10/01/20 15:55 Consult to Physician [CONS] Routine Comment: Consulting Provider: RIC GHOSH Physician Instructions: Reason For Exam: pui 10/01/20 16:21 Consult to Case Management [CONS] Urgent Services Needed at Discharge: Shredder/Granulator Operator Notified:: t Was contact made?: No Additional Physician Instructions: S.O. x 2 in same home as pt didn't even know why pt had splint to left lower arm, looks to be an old splint. E MS reports others in home unhelpful. Pt unresponsive, dialysis pt. Was informed hadn't had dialysis in about a week. See nurses notes/admit notes for 10/01/20. Concerned this pt is getting minimal care/assistance. Pt dirty upon arrival to ER. 10/01/20 22:31 Speech Therapy Evaluation and Treat [CONS] Routine Reason For Exam: EVALUATION 10/02/20 05:54 Consult to Wound/ET Nurse [CONS] Routine Reason For Exam: wound eval on left hand 10/02/20 06:26 Consult to Dietitian/Nutrition [CONS] Routine Physician Instructions: Reason For Exam: Reason for Consult: Malnutrition 10/02/20 07:55 Consult to Physician [CONS] Routine Comment: Consulting Provider: MARIO CH Physician Instructions: Reason For Exam: ESRD on HD 10/02/20 07:57 Consult to Physician [CONS] Routine Comment: Consulting Provider: BRITT COREA Physician Instructions: Reason For Exam: Seizure 10/02/20 13:58 Physical Therapy Evaluation and Treat [CONS] Routine Comment: Reason For Exam: debility Date of last referral: 10/02/20 10/02/20 14:00 Occupational Therapy Evaluate and Treat [CONS] Routine Comment: Reason For Exam: debility 10/04/20 07:40 Consult to Physician [CONS] Routine Comment: Consulting Provider: ALEX FOY Physician Instructions: Reason For Exam: Pancytopenia 10/07/20 20:24 Consult to Wound/ET Nurse [CONS] Routine Reason For Exam: wound eval 10/08/20 14:16 Consult to PICC Line RN [CONS] Routine Reason For Exam: Patient needs IV access Type Line:: Midline 10/08/20 14:21 Consult to Physician [CONS] Routine Comment: Consulting Provider: NICO DWYER Physician Instructions: Reason For Exam: Unable to get IV access 10/11/20 11:44 Speech Therapy Evaluation and Treat [CONS] Routine Reason For Exam: dysphagia 10/13/20 09:05 Consult to Dietitian/Nutrition [CONS] Routine Physician Instructions: Reason For Exam: Start Tube Feeding Reason for Consult: Write/Manage Tube Feeding 10/15/20 19:24 Consult to Physician [CONS] Routine Comment: Consulting Provider: CARLTON SALAZAR Physician Instructions: Reason For Exam: ICU admission Attending: SUZIE MARISCAL - summary Date of admission: 10/01/20 15:50 Date of : 10/16/20 Reason for admission: seizure-like activity, respiratory failure, COVID pna Procedures/treatments rendered: 80 YO Female with HTN, DM, Seizure Disorder, HLD, Diastolic CHF, ESRD on HD(M,W,F), Vascular Dementia, Cerebral Atherosclerosis presents to emergency room after she was noted to have seizure-like activity after being discharged from [facility]. Patient was discharged on Depakote and Keppra. In the ER here, she was found to have metabolic encephalopathy, UTI, accelerated hypertension and pneumonia on chest x-ray. She was initiated on Pneumonia protocol and then admitted to the hospital. She had a COVID PNA and was treated at OSH. --Multifocal pneumonia Secondary to Covid Completed treatment --COVID-19 virus infection s/p treatment at OSH -- Seizure Continue keppra 500 mg twice daily Depakote 750mg BID MRI of the brain without contrast performed-acute changes not found Neurology recs appreciated ---Atrial fibrillation with RVR On metoprolol and amiodarone On eliquis Cardiology following -- Urinary tract infection Antibiotics completed --Accelerated hypertension Continue current blood pressure medications-losartan and Coreg -- End-stage renal disease on hemodialysis Hemodialysis as scheduled --Oropharyngeal dysphagia s/p PEG tube placement --Diabetes mellitus Lantus and lispro ssi --Vascular dementia Stable ---DVT prophylaxis SCD to bilateral lower extremities while in bed During the evening of 10/15 hospital service responded to a CODE BLUE and initiated ACLS and eventually achieved ROSC. The patient was intubated. Overnight the patient coded again but this time ROSC was not achieved with ACLS and the patient was pronounced by the coremaker machine. Patient's family this time to be contacted several times during both codes however they were unable to be reached and voicemails were left. I called the patient's daughter this morning who informed me that the family was able to come and visit her overnight. I offered my condolences and answered all questions. CHRIST was pronounced by the overnight hospitalist.
--- NOTE | 2020-10-16 10:01 | Progress Note ---
Assessment and Plan Assessment and plan: 80 YO Female with HTN, DM, Seizure Disorder, HLD, Diastolic CHF, ESRD on HD(M,W,F), Vascular Dementia, Cerebral Atherosclerosis presents to emergency room after she was noted to have seizure-like activity after being discharged from [facility]. Patient was discharged on Depakote and Keppra. In the ER here, she was found to have metabolic encephalopathy, UTI, accelerated hypertension and pneumonia on chest x-ray. She was initiated on Pneumonia protocol and then admitted to the hospital. --Multifocal pneumonia Secondary to Covid Completed treatment --COVID-19 virus infection s/p treatment at OSH Taper off steroids Continue isolation -- Seizure Continue keppra 500 mg twice daily Depakote 750mg BID MRI of the brain without contrast performed-acute changes not found Awaiting EEG Neurology recs appreciated ---Atrial fibrillation with RVR On metoprolol and amiodarone On eliquis Cardiology following -- Urinary tract infection Antibiotics completed --Accelerated hypertension Continue current blood pressure medications-losartan and Coreg -- End-stage renal disease on hemodialysis Hemodialysis as scheduled --Oropharyngeal dysphagia --Diabetes mellitus Lantus and lispro --Vascular dementia Stable ---DVT prophylaxis SCD to bilateral lower extremities while in bed History Interval history: 80 YO Female with HTN, DM, Seizure Disorder, HLD, Diastolic CHF, ESRD on HD(M,W,F), Vascular Dementia, Cerebral Atherosclerosis presents to emergency room after she was noted to have seizure-like activity after being discharged from [facility]. Patient was discharged on Depakote and Keppra. In the ER here, she was found to have metabolic encephalopathy, UTI, accelerated hypertension and pneumonia on chest x-ray. She was initiated on Pneumonia protocol and then admitted to the hospital. Neurology was consulted for seizure episode. MRI brain and EEG advised. COVID- 19 test positive. Patient started on dexamethasone. ID consulted. Patient also on antibiotics for UTI.No new issues overnight. Patient unable to take p.o. Today we ordered a cdiff and replaced her potassium. She was on a NRB when I examined her. 10/05. Patients mental status has improved. MRI brain performed showed no acute abnormalities [this was done without contrast as patient has ESRD]. Overnight, patient had A. fib with RVR with rates in the 100-120s. Cardiology has been consulted. Beta-jason dose has been adjusted. Patient started on heparin drip 10/06. Heart rate up to 120's. Patient may need to be started on Cardizem drip however blood pressure is soft. Cardiology will consider amiodarone if not improving. Awaiting cardiology evaluation. She denies any chest pain or palpitations this morning. Afebrile overnight. 10/07. Coreg switched to metoprolol by cardiology. Heparin switched to eliquis. Started on amiodarone drip but as patient could not be transferred to CCU/IMCU due to unavailable beds, she was switched to PO amiodarone by cardiology. 10/08. HR still elevated. BP soft today (normal saline bolus ordered. Started on midodrine for now. Had hypoglycemia overnight. Lantus reduced by 50%. Labs ordered. 10/09. Patient heart rate remains elevated. Consider transferring to IMCU and starting amiodarone drip. We will discuss with cardiology. Patient not taking p.o. therefore we will start Keppra IV. 10/10. Amiodarone drip held per nursing secondary to bradycardia. Continue anticoagulation with heparin drip. Hemodialysis on hold per nephrology given hemodynamic instability. Resume hemodialysis in a.m. if stable. 10/11. Repeat echocardiogram when patient clinically stable. Patient currently rate controlled on metoprolol 25 mg twice daily. Continue low-dose Eliquis. Check HIT panel. Continue Lantus and sliding scale insulin. Continue AEDs and seizure precautions. Continue midodrine 10/12. HIT panel order given thrombocytopenia. Continue Eliquis for now. Repeat echocardiogram per cardiology. 10/13. Follow-up HIT panel. Continue Eliquis. Rate controlled with metoprolol 25 mg twice daily. Continue midodrine for hypotension. Continue Keppra and valproic acid for seizure disorder. Patient with no new seizure activity. Follow-up EEG. Consider transfer to third floor with telemetry. Speech therapy reports that the patient's swallowing function has declined. The patient is unable to effectively manage her secretions in addition to bolus holding and a swallow reflex delay. Recommendations are for n.p.o. DHT placed and dietitian to start tube feedings. 10/14. Follow-up HIT panel. Continue Eliquis. Rate controlled with metoprolol 25 mg twice daily. Continue midodrine for hypotension. Continue Keppra and valproic acid for seizure disorder. Patient with no new seizure activity. Follow-up EEG. Speech therapy recommends n.p.o. status. Nutritional support via DHT and aspiration precautions. Hospitalist Physical - Constitutional Vitals: Temp Pulse Resp BP Pulse Ox 97.0 F L 98 H 26 H 97/39 94 10/15/20 16:00 10/16/20 00:24 10/16/20 00:00 10/16/20 00:24 10/16/20 00:24 General appearance: Present: no acute distress, other (Altered mental status) - EENT Eyes: Present: PERRL, EOM intact ENT: clear oral mucosa - Respiratory Respiratory effort: normal Respiratory: bilateral: CTA, diminished - Cardiovascular Rhythm: regular Heart Sounds: Present: S1 & S2. Absent: systolic murmur, diastolic murmur - Extremities Extremities: no ischemia, pulses intact, pulses symmetrical, No edema, normal temperature, normal color, Full ROM Peripheral Pulses: within normal limits - Abdominal General gastrointestinal: soft, non-tender, non-distended, normal bowel sounds - Integumentary Integumentary: Present: clear, warm, dry - Psychiatric Psychiatric: cooperative - Neurologic Neurologic: CNII-XII intact, no focal deficits, moves all extremities - Allied Health Allied health notes reviewed: nursing Results - Labs CBC & Chem 7: 10/15/20 04:28 10/15/20 04:28 Labs: Laboratory Last Values WBC 5.4 K/mm3 (4.5-11.0) 10/15/20 04:28 RBC 2.83 M/mm3 (3.65-5.03) L 10/15/20 04:28 Hgb 8.8 gm/dl (10.1-14.3) L 10/15/20 04:28 Hgb Comment See scanned results 10/06/20 05:56 Hct 26.9 % (30.3-42.9) L 10/15/20 04:28 MCV 95 fl (79-97) 10/15/20 04:28 MCH 31 pg (28-32) 10/15/20 04:28 MCHC 33 % (30-34) 10/15/20 04:28 RDW 18.2 % (13.2-15.2) H 10/15/20 04:28 Plt Count 26 K/mm3 (140-440) L 10/15/20 04:28 Lymph % (Auto) 5.5 % (13.4-35.0) L 10/15/20 04:28 Holmes % (Auto) 4.4 % (0.0-7.3) 10/15/20 04:28 Eos % (Auto) 0.1 % (0.0-4.3) 10/15/20 04:28 Baso % (Auto) 0.3 % (0.0-1.8) 10/15/20 04:28 Lymph # (Auto) 0.3 K/mm3 (1.2-5.4) L 10/15/20 04:28 Holmes # (Auto) 0.2 K/mm3 (0.0-0.8) 10/15/20 04:28 Eos # (Auto) 0.0 K/mm3 (0.0-0.4) 10/15/20 04:28 Baso # (Auto) 0.0 K/mm3 (0.0-0.1) 10/15/20 04:28 Add Manual Diff Complete 10/13/20 04:43 Total Counted 100 10/13/20 04:43 Seg Neutrophils % 89.7 % (40.0-70.0) H 10/15/20 04:28 Seg Neuts % (Manual) 94.0 % (40.0-70.0) H 10/13/20 04:43 Band Neutrophils % 1.0 % 10/13/20 04:43 Lymphocytes % (Manual) 3.0 % (13.4-35.0) L 10/13/20 04:43 Monocytes % (Manual) 1.0 % (0.0-7.3) 10/13/20 04:43 Metamyelocytes % 1.0 % 10/13/20 04:43 Nucleated RBC % Not Reportable 10/13/20 04:43 Seg Neutrophils # 4.9 K/mm3 (1.8-7.7) 10/15/20 04:28 Seg Neutrophils # Man 5.3 K/mm3 (1.8-7.7) 10/13/20 04:43 Band Neutrophils # 0.1 K/mm3 10/13/20 04:43 Lymphocytes # (Manual) 0.2 K/mm3 (1.2-5.4) L 10/13/20 04:43 Abs React Lymphs (Man) 0.0 K/mm3 10/13/20 04:43 Monocytes # (Manual) 0.1 K/mm3 (0.0-0.8) 10/13/20 04:43 Eosinophils # (Manual) 0.0 K/mm3 (0.0-0.4) 10/13/20 04:43 Basophils # (Manual) 0.0 K/mm3 (0.0-0.1) 10/13/20 04:43 Metamyelocytes # 0.1 K/mm3 10/13/20 04:43 Myelocytes # 0.0 K/mm3 10/13/20 04:43 Promyelocytes # 0.0 K/mm3 10/13/20 04:43 Blast Cells # 0.0 K/mm3 10/13/20 04:43 WBC Morphology Not Reportable 10/13/20 04:43 Hypersegmented Neuts Not Reportable 10/13/20 04:43 Hyposegmented Neuts Not Reportable 10/13/20 04:43 Hypogranular Neuts Not Reportable 10/13/20 04:43 Smudge Cells Not Reportable 10/13/20 04:43 Toxic Granulation Not Reportable 10/13/20 04:43 Toxic Vacuolation Not Reportable 10/13/20 04:43 Dohle Bodies Not Reportable 10/13/20 04:43 Pelger-Huet Anomaly Not Reportable 10/13/20 04:43 Richard Rods Not Reportable 10/13/20 04:43 Platelet Estimate Consistent w auto 10/13/20 04:43 Clumped Platelets Not Reportable 10/13/20 04:43 Plt Clumps, EDTA Not Reportable 10/13/20 04:43 Large Platelets Not Reportable 10/13/20 04:43 Giant Platelets Not Reportable 10/13/20 04:43 Platelet Satelliting Not Reportable 10/13/20 04:43 Plt Morphology Comment Not Reportable 10/13/20 04:43 RBC Morphology Not Reportable 10/13/20 04:43 Dimorphic RBCs Not Reportable 10/13/20 04:43 Polychromasia Not Reportable 10/13/20 04:43 Hypochromasia Not Reportable 10/13/20 04:43 Poikilocytosis 1+ 10/13/20 04:43 Anisocytosis 1+ 10/13/20 04:43 Microcytosis Not Reportable 10/13/20 04:43 Macrocytosis Not Reportable 10/13/20 04:43 Spherocytes Not Reportable 10/13/20 04:43 Pappenheimer Bodies Not Reportable 10/13/20 04:43 Sickle Cells Not Reportable 10/13/20 04:43 Target Cells Few 10/13/20 04:43 Tear Drop Cells Few 10/13/20 04:43 Ovalocytes Few 10/13/20 04:43 Helmet Cells Not Reportable 10/13/20 04:43 Cavazos-Roscoe Bodies Not Reportable 10/13/20 04:43 [place] Rings Not Reportable 10/13/20 04:43 Morena Cells 1+ 10/13/20 04:43 Bite Cells Not Reportable 10/13/20 04:43 Crenated Cell Not Reportable 10/13/20 04:43 Elliptocytes Not Reportable 10/13/20 04:43 Acanthocytes (Spur) Not Reportable 10/13/20 04:43 Rouleaux Not Reportable 10/13/20 04:43 Hemoglobin C Crystals Not Reportable 10/13/20 04:43 Schistocytes Not Reportable 10/13/20 04:43 Malaria parasites Not Reportable 10/13/20 04:43 Sickle Cell Solubility See scanned results 10/06/20 05:56 Hemoglobin A See scanned results 10/06/20 05:56 Hemoglobin A2 See scanned results 10/06/20 05:56 Hemoglobin A2 Prime See scanned results 10/06/20 05:56 Hemoglobin C See scanned results 10/06/20 05:56 Hemoglobin D See scanned results 10/06/20 05:56 Hemoglobin E See scanned results 10/06/20 05:56 Hgb F Diffential Stain See scanned results 10/06/20 05:56 Hemoglobin F Quant See scanned results 10/06/20 05:56 Hemoglobin G See scanned results 10/06/20 05:56 Hemoglobin S See scanned results 10/06/20 05:56 Hemoglobin O-Anderson See scanned results 10/06/20 05:56 Hemoglobin Barts See scanned results 10/06/20 05:56 Hemoglobin Isak See scanned results 10/06/20 05:56 Variant Hemoglobin See scanned results 10/06/20 05:56 Abnorm Hgb IEF Confirm See scanned results 10/06/20 05:56 Hemoglobin Interpret See scanned results 10/06/20 05:56 Hemoglobinopathy Note See scanned results 10/06/20 05:56 Cristofer Bodies Not Reportable 10/13/20 04:43 Hem Pathologist Commnt No 10/13/20 04:43 PT 13.4 Sec. (12.2-14.9) 10/05/20 20:39 INR 1.04 (0.87-1.13) 10/05/20 20:39 APTT 37.6 Sec. (24.2-36.6) H 10/05/20 20:39 D-Dimer 1609.74 ng/mlDDU (0-234) H 10/01/20 16:16 Heparin Anti-Xa Level 0.18 U.I./ml (0.3-0.7) L 10/06/20 05:56 ABG pH 7.222 (7.320-7.450) L 10/15/20 21: POC ABG pCO2 46.9 mmHg (32.0-48.0) 10/15/20 21: POC ABG pO2 91.0 mmHg (83-108) 10/15/20 21: POC ABG HCO3 18.9 10/15/20 21: POC ABG Base Excess -8.5 10/15/20 21: ABG Hemoglobin 10.2 (12.0-17.5) L 10/15/20 21: ABG Oxyhemoglobin 93.8 (94-98) L 10/15/20 21: ABG Methemoglobin 0.3 (0.0-1.5) 10/15/20 21: ABG Sodium 134.4 mmol/L (136.0-145.0) L 10/15/20: ABG Potassium 4.0 mmol/L (3.40-4.50) 10/15/20: ABG Chloride 101.0 mmol/L (98-107) 10/15/20 21: ABG Glucose 131 mg/dL (65-95) H 10/15/20 21:27 Carboxyhemoglobin 0.8 (0.5-1.5) 10/15/20 21: FiO2 100.0 10/15/20 21: Sodium 139 mmol/L (137-145) 10/15/20 04:28 Potassium 3.1 mmol/L (3.6-5.0) L 10/15/20 04:28 Chloride 98.5 mmol/L (98-107) 10/15/20 04:28 Carbon Dioxide 30 mmol/L (22-30) 10/15/20 04:28 Anion Gap 14 mmol/L 10/15/20 04:28 BUN 31 mg/dL (7-17) H 10/15/20 04:28 Creatinine 3.7 mg/dL (0.6-1.2) H 10/15/20 04:28 Estimated GFR 14 ml/min 10/15/20 04:28 BUN/Creatinine Ratio 8 % 10/15/20 04:28 Glucose 161 mg/dL (65-100) H 10/15/20 04:28 POC Glucose 103 mg/dL (70-105) 10/15/20 23:29 Lactic Acid 1.10 mmol/L (0.7-2.0) 10/01/20 16:16 Calcium 8.4 mg/dL (8.4-10.2) 10/15/20 04:28 Ferritin 1926.0 ng/mL (10.0-200.0) H 10/03/20 09:30 Total Bilirubin 0.30 mg/dL (0.1-1.2) 10/09/20 03:00 AST 31 units/L (5-40) 10/09/20 03:00 ALT 9 units/L (7-56) 10/09/20 03:00 Alkaline Phosphatase 38 units/L (35-129) 10/09/20 03:00 Ammonia 20.0 umol/L (25-60) L 10/01/20 11:39 Lactate Dehydrogenase 241 units/L (91-180) H 10/03/20 09:30 Total Creatine Kinase 54 units/L (30-135) 10/01/20 11:39 C-Reactive Protein 2.70 mg/dL (0.00-1.30) H 10/03/20 09:30 Serum Total Protein 5.6 g/dL (6.1-8.1) L 10/06/20 05:56 Total Protein 4.7 g/dL (6.3-8.2) L 10/09/20 03:00 Albumin 2.3 g/dL (3.9-5) L 10/09/20 03:00 Albumin/Globulin Ratio 1.0 % 10/09/20 03:00 Jpzde-1-Mwuawcdff 0.3 g/dL (0.2-0.3) 10/06/20 05:56 Kvfow-6-Byhzbvjhu 0.7 g/dL (0.5-0.9) 10/06/20 05:56 Beta Globulins 0.4 g/dL (0.2-0.5) 10/06/20 05:56 Gamma Globulins 1.5 g/dL (0.8-1.7) 10/06/20 05:56 Abnorm Protein Band 1 see below 10/06/20 05:56 PEP Interpretation see below H 10/06/20 05:56 Procalcitonin 0.52 ng/mL (<0.15) 10/03/20 09:30 TSH 6.100 mlU/mL (0.270-4.200) H 10/01/20 11:39 Free T4 1.40 ng/dL (0.76-1.46) 10/03/20 09:30 Arterial Blood Glucose 131 mg/dL (65-95) H 10/15/20 21:27 Arterial Blood Ionized Calcium 5.0 mg/dL (4.6-5.3) 10/15/20 21:27 Urine Color Dagmar (Yellow) 10/01/20 13:15 Urine Turbidity Cloudy (Clear) 10/01/20 13:15 Urine pH 7.0 (5.0-7.0) 10/01/20 13:15 Ur Specific [place] 1.012 (1.003-1.030) 10/01/20 13:15 Urine Protein >500 mg/dL (Negative) 10/01/20 13:15 Urine Glucose (UA) Neg mg/dL (Negative) 10/01/20 13:15 Urine Ketones Neg mg/dL (Negative) 10/01/20 13:15 Urine Blood Sm (Negative) 10/01/20 13:15 Urine Nitrite Neg (Negative) 10/01/20 13:15 Urine Bilirubin Neg (Negative) 10/01/20 13:15 Urine Urobilinogen < 2.0 mg/dL (<2.0) 10/01/20 13:15 Ur Leukocyte Esterase Lg (Negative) 10/01/20 13:15 Urine WBC (Auto) > 182.0 /HPF (0.0-6.0) H 10/01/20 13:15 Urine RBC (Auto) 18.0 /HPF (0.0-6.0) 10/01/20 13:15 U Epithel Cells (Auto) 4.0 /HPF (0-13.0) 10/01/20 13:15 Urine Bacteria (Auto) 1+ /HPF (Negative) 10/01/20 13:15 Urine WBC Clumps 2+ /HPF 10/01/20 13:15 Urine Mucus Few /HPF 10/01/20 13:15 Random Vancomycin 7.6 ug/mL (0-40.0) 10/03/20 09:30 Salicylates < 0.3 mg/dL (2.8-20.0) L 10/01/20 11:39 Urine Opiates Screen Negative 10/01/20 13:15 Urine Methadone Screen Negative 10/01/20 13:15 Acetaminophen 5.0 ug/mL (10.0-30.0) L 10/01/20 11:39 Ur Barbiturates Screen Negative 10/01/20 13:15 Ur Phencyclidine Scrn Negative 10/01/20 13:15 Ur Amphetamines Screen Negative 10/01/20 13:15 U Benzodiazepines Scrn Negative 10/01/20 13:15 Urine Cocaine Screen Negative 10/01/20 13:15 U Marijuana (THC) Screen Negative 10/01/20 13:15 Drugs of Abuse Note Disclamer 10/01/20 13:15 Coronavirus (PCR) Positive (Negative) A 10/02/20 Unknown Barrientos/IV: Voiding Method Incontinent IV Catheter Type [right chest] PICC Line IV Catheter Type [Right INT / Saline Lock Forearm] IV Catheter Type [Left Upper dialysis access arm] Nutrition/Malnutrition Assess - Dietary Evaluation Nutrition/Malnutrition Findings: Nutrition Notes Start: 10/02/20 14:56 Freq: Status: Discharge Protocol: Document 10/15/20 11:15 HORACIO (Rec: 10/15/20 11:19 [email or web address]) Nutrition Notes Initial or Follow up Reassessment Current Diagnosis CKD (stage V CKD),Coronary Artery Disease,Decubitus( Pressure Ulcer),Diabetes, Hyperlipidemia Other Pertinent Diagnosis COVID-19 (+), Encephalopathy, UTI, GERD, pneu, seizure d/o Current Diet Glucerna 1.2 at 50 ml/hr Labs/Tests K 3.1 BUN 31 Cr 3.7 BG 161 Pertinent Medications Kcl 40 mEq Height 5 ft 5 in Weight 63 kg [place] Body Weight (kg) 56.81 BMI 23.1 Weight Status Appropriate Subjective/Other Information FU for TF start/tolerance. Per RN, TF at goal and pt is tolerating it well. Percent of energy/protein needs met: 100%/96% Burn Absent Trauma Absent GI Symptoms None Difficulty In Swallowing,Chewing Food Allergy No Current % PO Negligible Minimum of two criteria No Reduced Fare Collector Strength Measurably Reduced (severe) #3 Nutrition Diagnosis Increased nutrient needs ( specify in comment below) Diagnosis Progress(for reassessment Continues documentation) #2 Nutrition Diagnosis Inadequate oral intake Diagnosis Progress(for reassessment Continues documentation) Is patient on ventilator? No Is Patient Ambulatory and/or Out of Bed No REE-([facility]-confined to bed) 1322.076 Calculation Used for Recommendations [facility] Additional Notes Protein: >75 g (>1.2 g/kg) Fluid: 1,000-1,500ml or per MD order Nutrition Intervention Change Diet Order: Continue Nutrition Support: Glucerna 1.2 at 50ml/hr. Flush with 80ml q4h Kcal 1,440 Protein (gm) 72 Fluid (mL) 966 Goal #1 Meet at least 80% of kcal and protein needs via TF Goal #2 Wt gain/ maintenance Goal #3 Wound healing Anticipated Discharge Needs: Unable to determine at this time Follow-Up By: 10/18/20 Additional Comments Follow for TF tolerance
[2020-10-16 16:01] LABS: Heparin-Induced Platelet Antib Negative (Negative); Unfractionated Heparin Negative (Negative)
== END 2020-10-16 02:29 | DRG 208 ==
LOC: ED 09:32 → 3A 15:50 → IMCU 10-09 17:26 → CC1 10-15 19:02
PROVIDERS: ADMIT Internal Medicine; ATTEND Hospitalist
PROC: 5A1D70Z Performance of Urinary Filtration, Intermittent, Less than 6 Hours Per Day (ICD-10-PCS; 2020-10-02)
PROC: 5A1D70Z Performance of Urinary Filtration, Intermittent, Less than 6 Hours Per Day (ICD-10-PCS; 2020-10-04)
PROC: 5A1D70Z Performance of Urinary Filtration, Intermittent, Less than 6 Hours Per Day (ICD-10-PCS; 2020-10-06)
PROC: 0JH63XZ Insertion of Tunneled Vascular Access Device into Chest Subcutaneous Tissue and Fascia, Percutaneous Approach (ICD-10-PCS; 2020-10-08)
PROC: 02HV33Z Insertion of Infusion Device into Superior Vena Cava, Percutaneous Approach (ICD-10-PCS; 2020-10-08)
PROC: B5181ZA Fluoroscopy of Superior Vena Cava using Low Osmolar Contrast, Guidance (ICD-10-PCS; 2020-10-08)
PROC: B548ZZA Ultrasonography of Superior Vena Cava, Guidance (ICD-10-PCS; 2020-10-08)
PROC: B5181ZZ Fluoroscopy of Superior Vena Cava using Low Osmolar Contrast (ICD-10-PCS; 2020-10-08)
PROC: 5A1D70Z Performance of Urinary Filtration, Intermittent, Less than 6 Hours Per Day (ICD-10-PCS; 2020-10-11)
PROC: 5A1D70Z Performance of Urinary Filtration, Intermittent, Less than 6 Hours Per Day (ICD-10-PCS; 2020-10-13)
PROC: 5A09357 Assistance with Respiratory Ventilation, Less than 24 Consecutive Hours, Continuous Positive Airway Pressure (ICD-10-PCS; 2020-10-14)
PROC: 5A1935Z Respiratory Ventilation, Less than 24 Consecutive Hours (ICD-10-PCS; principal; 2020-10-15)
PROC: 4A033R1 Measurement of Arterial Saturation, Peripheral, Percutaneous Approach (ICD-10-PCS; 2020-10-15)
PROC: 5A09357 Assistance with Respiratory Ventilation, Less than 24 Consecutive Hours, Continuous Positive Airway Pressure (ICD-10-PCS; 2020-10-15)
PROC: 5A12012 Performance of Cardiac Output, Single, Manual (ICD-10-PCS; 2020-10-16)
DX: U07.1 COVID-19 (principal); N18.6 End stage renal disease; G93.41 Metabolic encephalopathy; J96.01 Acute respiratory failure with hypoxia; J12.82 Pneumonia due to coronavirus disease 2019; N39.0 Urinary tract infection, site not specified; I13.2 Hypertensive heart and chronic kidney disease with heart failure and with stage 5 chronic kidney disease, or end stage renal disease; I50.32 Chronic diastolic (congestive) heart failure; D61.818 Other pancytopenia; I48.19 Other persistent atrial fibrillation; I47.2 Ventricular tachycardia; D63.1 Anemia in chronic kidney disease; E87.5 Hyperkalemia; G40.909 Epilepsy, unspecified, not intractable, without status epilepticus; I67.2 Cerebral atherosclerosis; E78.2 Mixed hyperlipidemia; I27.20 Pulmonary hypertension, unspecified; I25.10 Atherosclerotic heart disease of native coronary artery without angina pectoris; K21.9 Gastro-esophageal reflux disease without esophagitis; E21.3 Hyperparathyroidism, unspecified; F01.50 Vascular dementia, unspecified severity, without behavioral disturbance, psychotic disturbance, mood disturbance, and anxiety; Z99.2 Dependence on renal dialysis; Z79.82 Long term (current) use of aspirin; Z79.899 Other long term (current) drug therapy; Z83.3 Family history of diabetes mellitus; Z82.49 Family history of ischemic heart disease and other diseases of the circulatory system; R13.12 Dysphagia, oropharyngeal phase; I46.9 Cardiac arrest, cause unspecified
CPT/HCPCS: 36415; 36558; 36600; 70450; 70551; 71045; 74018; 77001; 80048; 80053; 80202; 80307; 80320; 81001; 82140; 82550; 82728; 82805; 82947; 82962; 83615; 84145; 84165; 84439; 84443; 85007; 85014; 85018; 85025; 85027; 85049; 85379; 85520; 85610; 85730; 86022; 86140; 87040; 87086; 87324; 87493; 93005; 93306; 93970; 94002; 94003; 94660; 94760; 96365; 96375; G0378; A9270-GY; C1751; G0480; J0171; J0282; J0360; J0461; J0692; J0885; J1644; J1815; J1953; J2310; J2370; J2920; J3370; J7030; J7050; J7060; U0003